=== PATIENT | male | born 1960 | race Caucasian/White ===

== ENCOUNTER 2023-05-11 12:39 | Inpatient (IN) | payer OTHER, SELFPAY ==
[2023-05-11] VITALS (11 sets, daily range): BP systolic 122–161; BP diastolic 85–108; PULSE 81–105; RESP 18–34; TEMP 36.6; O2SAT 91–97; BMI 32.1; BMI 31.1
--- NOTE | 2023-05-11 13:38 | EDS_ITS ---
HPI History of Present Illness Chief Complaint: Shortness of Breath Informant: patient Onset/Context/Timing Onset: Weeks (2) Context: gradual Timing: Continuous Quality: Positive for Wheezing Worsened by: Lying flat Relieved by: Albuterol Associated Symptoms cough, clear sputum and white sputum; Negative for rhinorrhea, post nasal drip, ear pain, fever, sore throat, chills, sweats, yellow sputum or green sputum Chest Pain: Positive for Tightness and - (Congested) Narrative Narrative: Patient presents with shortness of breath that has been getting worse over the past 2 weeks. Patient states it is gradually getting worse. Patient has noti ayana some wheezing in his chest. Patient states his breathing is worse with lying flat. Patient states it is better with albuterol aerosols. Patient states he is coughing up some clear and occasional white sputum. Patient denies any fevers or chills. Patient states his chest feels tight and congested. Patient denies any sore throat, rhinorrhea, or ear pain. PE Risk Factors: Negative for Cancer, OCP + Smoking + > 35, Prior DVT or PE, Recent immobilization, Recent surgery or Recent travel [facility] Medical History Hypertension Home Medications diphenhydramine HCl 25 mg tablet (Allergy) 50 mg PO QHS 05/11/23 [History Last Taken Unknown] losartan 50 mg tablet (Cozaar) 50 mg PO DAILY 05/11/23 [History Last Taken Unknown] Allergy/AdvReac Type Severity Reaction Status Date / Time poison dennis extract Allergy Intermediate Rash Verified 05/11/23 14:25 Social History (Updated 05/11/23 @ 20:21 by Julia Jose) number of children: 0 Smoking Status: Current every day smoker tobacco type: pipe ROS ROS ED Constitutional Constitutional ED: Denies chills or fever(s) Eyes Eyes: Denies blurry vision or change in vision ENT ENT ED: Denies rhinorrhea or sore throat Cardiovascular Cardiovascular: Reports chest pain; Denies palpitations Respiratory/Chest Respiratory/Chest: Reports cough and dyspnea Gastrointestinal Gastrointestinal: Denies nausea or vomiting Genitourinary Genitourinary ED: Denies dysuria or hematuria Musculoskeletal Musculoskeletal: Denies back pain or neck pain Integumentary Denies abscess or rash Neurologic Neurologic: Denies headache(s) or weakness Allergic/Immunologic Allergic/Immunologic ED: Denies mouth swelling or urticaria EXAM Physical Exam Const Vital Signs: 05/11/23 12:41 05/11/23 12:44 05/11/23 14:08 Temperature 97.8 F Temperature Source Temporal Pulse Rate 85 88 Respiratory Rate 34 H 20 H Respiratory Effort Short of Breath Respiratory Depth Shallow Respiratory Pattern Tachypnea Normal Blood Pressure 161/100 H Blood Pressure Mean 120 Pulse Ox 97 Oxygen Delivery Method Nasal Cannula Nasal Cannula Oxygen Flow Rate (L/min) 3 3 05/11/23 14:23 05/11/23 16:24 05/11/23 17:14 Temperature 97.8 F Temperature Source Temporal Pulse Rate 90 83 84 Respiratory Rate 23 H 26 H Respiratory Effort Respiratory Depth Respiratory Pattern Blood Pressure 159/91 H 122/108 H 143/85 H Blood Pressure Mean 113 112 104 Pulse Ox 96 96 91 Oxygen Delivery Method Nasal Cannula Nasal Cannula Oxygen Flow Rate (L/min) 4 4 05/11/23 16:43 Temperature 97.8 F Temperature Source Temporal Pulse Rate 81 Respiratory Rate 24 H Respiratory Effort Respiratory Depth Respiratory Pattern Blood Pressure 156/94 H Blood Pressure Mean 114 Pulse Ox 95 Oxygen Delivery Method Room Air Oxygen Flow Rate (L/min) 4 Positive well nourished and well developed General Appearance ED: well developed and NAD HEENT Reports moist mucous membranes Neck supple and no JVD Resp normal respiratory effort Auscultation: wheezes expiratory wheezes and throughout Cardio regular rate and regular rhythm GI normal to inspection, nondistended, normoactive bowel sounds and non-tender Palpation: soft Extremity normal to inspection General Extremety ED: Negative for edema or tenderness General Extremity: Negative for edema Neuro oriented x3, CN's II-XII intact bilaterally and no sensory deficits noted Sensorium / Orientation: alert Motor Exam: strength 5/5 throughout Psych mental status grossly normal Skin no rashes or lesions noted MDM MDM MDM Narrative Medical decision making narrative: Differential diagnosis includes COPD exacerbation, asthma, cardiac dysrhythmia, cardiac ischemia, pneumonia, pneumothorax, pulmonary embolism, and anxiety. EKG will be obtained to assess for cardiac dysrhythmia and cardiac ischemia. Chest x-ray will be obtained to assess for pneumonia and pneumothorax. CBC will be obtained to assess for leukocytosis and anemia. Basic metabolic profile will be obtained to assess for electrolyte abnormality and renal function. High- sensitivity troponin will be obtained to assess for cardiac ischemia. D-dimer will be obtained to assess for pulmonary embolism. Lab Data Attestation: I reviewed the patient's lab results. Lab results narrative: CBC was reviewed and was within normal limits. Basic metabolic profile was reviewed and was within normal limits. PT with INR and PTT were reviewed and were within normal limits. High-sensitivity troponin was reviewed and was normal. 2-hour repeat high-sensitivity troponin was reviewed and was unchanged. COVID-19 rapid antigen was reviewed and was negative. Influenza A and influenza B antigens were reviewed and were negative. Labs: Laboratory Results - last 24 hr 05/11/23 05/11/23 13:45 15:20 WBC 8.1 RBC 5.08 Hgb 16.2 Hct 50.5 MCV 99.4 H MCH 31.9 MCHC 32.1 RDW Std Deviation 49.3 H RDW Coeff of Monica 13.4 Plt Count 308 MPV 9.6 Immature Gran % (Auto) 0.400 Neut % (Auto) 65.2 Lymph % (Auto) 17.7 L [place] % (Auto) 8.6 Eos % (Auto) 7.0 H Baso % (Auto) 1.1 H Absolute Neuts (auto) 5.3 Absolute Lymphs (auto) 1.43 Nucleated RBC % 0 PT 13.2 INR 1.0 APTT 26.3 D-Dimer Quant (PE/DVT) 0.33 Sodium 137 Potassium 3.9 Chloride 102 Carbon Dioxide 30.0 Anion Gap 5 BUN 9 Creatinine 1.03 Estim Creat Clear Calc 63.03 Est GFR (MDRD) Af Amer 93 Est GFR (MDRD) Non-Af 77 BUN/Creatinine Ratio 8.7 L Glucose 104 Calcium 9.7 Troponin I High Sens 4 4 Radiography Chest X-Ray - ED: 2 View, Read by ED Physician, Read by Radiologist and No Acute Disease Diagnostic Testing: Clinical Impression(s) from Imaging Studies Chest X-Ray 05/11/23 13:52 IMPRESSION: Borderline cardiomegaly, aortic tortuosity with calcification and mild hyperinflation with minimal interstitial prominence. No focal consolidation or acute finding. Electronically Signed: Ean Trinh MD at 14:08 EDT , PA and lateral chest x-ray was obtained. There are 2 views. On my independent interpretation, lung oliver show mild hyperinflation. There is Cardiomegaly. Bony thorax is normal. There is no acute process noted. Radi ologist also interpreted the x-ray and agrees. EKG Initial EKG: Attestation: I personally reviewed and interpreted this EKG as follows: Interpretation: Sinus Rhythm (82) and No Acute Injury Pattern Comments: EKG was obtained. On my independent interpretation, it showed a normal sinus rhythm with a rate of 82. UT interval, QRS interval, and QTc intervals were all normal. Hammond was normal. There are no acute ST or T wave changes. Management Discussion w/another healthcare provider: Hospitalist Treatment and Re-Evaluation :: Patient was given a DuoNeb aerosol here. Patient was feeling better after this. Patient was given a dose of Solu-Medrol here. Because the patient was hypoxic at 85% on room air initially, I recommended admission to the hospital. Patient is agreeable with this. Case was discussed with the hospitalist. He will admit the patient to his service. Patient understands and is agreeable with the plan. All questions were answered. Discharge Plan Dx/Rx/DC Orders Clinical Impression: Hypoxia, Acute exacerbation of chronic obstructive pulmonary disease Disposition Disposition: Acute Care Hospital [facility] Discharge Date/Time: 05/11/23 19:34
--- NOTE | 2023-05-11 13:52 | RAD_ITS ---
STUDY: X-RAY CHEST REASON FOR EXAM: Male, 62 years old. Dyspnea. TECHNIQUE: Frontal and lateral views of the chest. COMPARISON: None. FINDINGS: Mild hyperinflation with mild interstitial prominence. There is no demonstrated pleural abnormality. Borderline cardiomegaly. Normal mediastinum and wiliam. Normal visualized pulmonary arteries. Aortic tortuosity with calcification. Normal visualized thoracic spine. Normal visualized ribs, clavicles, and shoulders. No abnormality of the visualized soft tissue structures of the upper abdomen. RAD/Chest PA and Lateral IMPRESSION: Borderline cardiomegaly, aortic tortuosity with calcification and mild hyperinflation with minimal interstitial prominence. No focal consolidation or acute finding. Electronically Signed: Ean Trinh MD at 14:08 EDT ,
[2023-05-11 14:02] LABS: Absolute Lymphocyte Count 1.43 X10^3/uL (0.83-4.51); Absolute Neutrophil Count 5.3 X10^3/uL (2.0-7.7); Basophil# 0.09 X10^3/uL; Basophil% 1.1 % (0-1); Eosinophil# 0.57 X10^3/uL; Hematocrit 50.5 % (40-54); Hemoglobin 16.2 g/dL (13.0-16.5); Lymphocyte # 1.43 X10^3/ul (0.83-4.51); Lymphocyte % 17.7 % (19-41); Mean Corp Hgb Conc 32.1 g/dL (32-36); Mean Corpuscular Hgb 31.9 pg (27.0-32.0); Mean Corpuscular Volume 99.4 fL (80-94); Mean Platelet Vol. 9.6 fl (6.2-12.0); Monocyte% 8.6 % (0-10); NRBC Flagged by Analyzer 0 % (0-5); Neutrophil # 5.28 X10^3/uL (2.7-7.7); Neutrophil % 65.2 % (47-70); Platelet Count 308 K/mm3 (150-450); RBC Distribution Width CV 13.4 % (11.6-14.6); RBC Distribution Width SD 49.3 fl (35.1-43.9); Red Blood Count 5.08 M/mm3 (4.6-6.2); White Blood Count 8.1 K/mm3 (4.4-11.0)
[2023-05-11] MEDS: Ipratropium/Albuterol Sulfate 3 ML AMPUL.NEB INHALATION ×2 (14:08→22:55)
[2023-05-11 14:12] LABS: D-Dimer Quantitative (DVT/PE) 0.33 FEU/ug/m (0.27-0.49)
[2023-05-11 14:16] LABS: Anion Gap 5 (5-15); BUN 9 mg/dL (7-18); BUN/Creat Ratio 8.7 RATIO (10-20); Calcium,Total 9.7 mg/dL (8.5-10.1); Chloride 102 mmol/L (98-107); Creatinine, Serum 1.03 mg/dL (0.70-1.30); EST Glomerular Filtration Rate 77 mL/min (>60); Est Glom Filt Rate - Afr Amer 93 mL/min (>60); Estimated Creatinine Clearance 63.03 ml/min; Glucose 104 mg/dL (74-106); Potassium 3.9 mmol/L (3.5-5.1); Sodium Level 137 mmol/L (136-145); Troponin-I HS (w/2H Reflex) 4 pg/mL (3.0-78.0)
[2023-05-11] MEDS: MethylPREDNISolone 125 MG/2 ML Vial 60 MG IV (14:22)
[2023-05-11 14:23] LABS: Prothrombin Time (Protime)PT. 13.2 SECONDS (11.7-14.9)
[2023-05-11 14:24] LABS: Partial Thromboplast Time 26.3 Seconds (24.1-36.2)
--- NOTE | 2023-05-11 14:32 | ED.RN ---
X-ray transport notified this RN that they believe they saw bed bugs on pt. back when they moved him. This RN went to assess for any bugs and witnessed several bugs of various sizes on pt. bed and clothes. Some bugs were caught and given to EVS. pt. was then cleaned, changed into clean gown with new sheets, personal belongings placed in clear bag and goosenecked.
[2023-05-11 15:54] LABS: Reflex Troponin-HS? (from REC) Y
[2023-05-11 16:23] LABS: Troponin-I HS 4 pg/mL (3.0-78.0)
--- NOTE | 2023-05-11 16:57 | PCM.HP.STD ---
HPI - General General Date of Admission: 05/11/23 Date of Service: 05/11/23 Chief Complaint: Shortness of breath, wheezing HPI Narrative MELCHOR LYLE is a 62 M with history of tobacco use and hypertension who presented to [facility] ED on 05/11/2023 with worsening shortness of breath and wheezing. Patient seen at bedside, no family present. Patient sitting comfortably in bed, satting well on 3 L nasal cannula and no increased work of breathing noted. Patient states that he feels significantly better now than when he got to the ED earlier today. States the breathing treatment was significantly helpful for him. Patient has no known history of COPD. He has a history of smoking cigarettes, unclear pack-year history. He is currently a pipe smoker, but only smokes about 2-3 times per week. Last smoked about 2 weeks ago. Has never had an episode of significant shortness of breath and wheezing like this before. He does occasionally have wheezing and uses his sisters albuterol inhaler with fairly good relief of his symptoms. His shortness of breath and wheezing started yesterday and got significantly worse this morning. No known sick contacts. Patient otherwise denies any chest pain. Denies any fevers or chills. Has not coughed up any sputum. No other acute concerns. Labs in the ED were notable for normal WBC count, benign CBC, normal BMP. Chest x-ray showed borderline cardiomegaly, aortic tortuosity with calcification and mild hyperinflation with minimal interstitial prominence, no focal consolidation or acute findings. [facility] Medical History Hypertension Home Medications diphenhydramine HCl 25 mg tablet (Allergy) 50 mg PO QHS 05/11/23 [History Last Taken Unknown] losartan 50 mg tablet (Cozaar) 50 mg PO DAILY 05/11/23 [History Last Taken Unknown] Allergy/AdvReac Type Severity Reaction Status Date / Time poison dennis extract Allergy Intermediate Rash Verified 05/11/23 14:25 Social History (Updated 05/11/23 @ 20:21 by Julia Jose) number of children: 0 Smoking Status: Current every day smoker tobacco type: pipe ROS Constitutional Constitutional: Reports fatigue and weakness; Denies change in weight, chills or fever(s) Cardiovascular Cardiovascular: Reports dyspnea on exertion; Denies chest pain, lightheadedness or orthopnea Respiratory/Chest Respiratory/Chest: Reports cough; Denies excessive phlegm production or productive cough Gastrointestinal Gastrointestinal: Denies abdominal pain Vital Signs Vital Signs Vital Signs: 05/11/23 12:41 05/11/23 12:44 05/11/23 14:08 Temperature 97.8 F Temperature Source Temporal Pulse Rate 85 88 Respiratory Rate 34 H 20 H Respiratory Effort Short of Breath Respiratory Depth Shallow Respiratory Pattern Tachypnea Normal Blood Pressure 161/100 H Blood Pressure Mean 120 Pulse Ox 97 Oxygen Delivery Method Nasal Cannula Nasal Cannula Oxygen Flow Rate (L/min) 3 3 05/11/23 14:23 05/11/23 16:24 Temperature Temperature Source Pulse Rate 90 83 Respiratory Rate 23 H Respiratory Effort Respiratory Depth Respiratory Pattern Blood Pressure 159/91 H 122/108 H Blood Pressure Mean 113 112 Pulse Ox 96 96 Oxygen Delivery Method Nasal Cannula Oxygen Flow Rate (L/min) 4 Weight Weight: 87.543 kg Body Mass Index (BMI) 32.1 Physical Exam Const alert and oriented x3 Constitutional Narrative: Pleasant male, sitting comfortably in bed, satting well on 3 L nasal cannula, conversing normally, no increased work of breathing noted. Unkempt with poor hygiene. General Appearance: cooperative HEENT normocephalic, head/scalp atraumatic, hearing grossly normal bilaterally, nasal mucous membranes and turbinates normal and moist oral mucous membranes Eyes PERRL, EOMs intact bilaterally and conjunctivae normal Neck full ROM, no lymphadenopathy and supple Lymph Lymphatic: no lymphadenopathy noted Chest inspection of chest normal Resp normal respiratory effort Resp Narrative: Moderate wheezing noted bilaterally in upper airways. Good air movement throughout. Cardio regular rate, regular rhythm, no murmurs and peripheral pulses 2+ throughout GI normal to inspection, nondistended, normoactive bowel sounds, soft to palpation, non-tender and non-distended Back/Spine normal ROM Extremity normal to inspection, full ROM and no pedal edema Skin no rashes or lesions noted Psych mental status grossly normal Results Lab / Micro Data 05/11/23 13:45 05/11/23 13:45 Labs: Laboratory Results - last 24 hr 05/11/23 13:45: WBC 8.1, RBC 5.08, Hgb 16.2, Hct 50.5, MCV 99.4 H, MCH 31.9, MCHC 32.1, RDW Std Deviation 49.3 H, RDW Coeff of Monica 13.4, Plt Count 308, MPV 9.6, Immature Gran % (Auto) 0.400, Neut % (Auto) 65.2, Lymph % (Auto) 17.7 L, Alexander % (Auto) 8.6, Eos % (Auto) 7.0 H, Baso % (Auto) 1.1 H, Absolute Neuts (auto) 5.3, Absolute Lymphs (auto) 1.43, Nucleated RBC % 0, PT 13.2, INR 1.0, APTT 26.3, D-Dimer Quant (PE/DVT) 0.33, Sodium 137, Potassium 3.9, Chloride 102, Carbon Dioxide 30.0, Anion Gap 5, BUN 9, Creatinine 1.03, Estim Creat Clear Calc 63.03, Est GFR (MDRD) Af Amer 93, Est GFR (MDRD) Non-Af 77, BUN/Creatinine Ratio 8.7 L, Glucose 104, Calcium 9.7, Troponin I High Sens 4 05/11/23 15:20: Troponin I High Sens 4 Micro: Microbiology 05/11/23 13:50 Nasal Secretion SARS-CoV-2 & FLU Antigen (Rapid) - Final Radiology Impression Chest X-Ray 05/11/23 13:52 IMPRESSION: Borderline cardiomegaly, aortic tortuosity with calcification and mild hyperinflation with minimal interstitial prominence. No focal consolidation or acute finding. Electronically Signed: Ean Trinh MD at 14:08 EDT , Assessment & Plan Assessment/Plan (1) Hypoxia: PLAN: Plan Patient is a 62 M with history of tobacco use and hypertension who presented to [facility] ED on 05/11/2023 with worsening shortness of breath and wheezing. 1. Acute hypoxic respiratory failure, dyspnea and wheezing, concern for underlying COPD No formal diagnosis of COPD. History of smoking cigarettes, has been smoking pipes a few times per week for the last few years. Suspect hypoxia along with significant dyspnea and wheezing are secondary to either a viral or bacterial URI, in setting of mild underlying COPD. Does not have any home inhalers, but uses his sisters albuterol inhaler as needed with improvement in his symptoms. Chest x-ray on admission as noted above. COVID and rapid flu negative. Given 1 treatment of DuoNeb's and 1 dose of methylprednisolone in the ED with good improvement in his symptoms. ? Treat as COPD exacerbation with 5-day course of steroids and antibiotics. Scheduled DuoNebs every 4 hours for now, can reduce to as needed if patient shows good improvement in symptoms. Sputum culture, respiratory panel pending. Wean supplemental O2 with goal oxygen saturation greater than 90%. Will likely need room air walk test prior to discharge to determine need for home oxygen. Recommend patient have outpatient PFTs done once improved for formal assessment for underlying lung disease. 2. Hypertension ? On home losartan. Appeared mildly hypovolemic on admission, will hold losartan for now. Repeat BMP in the morning, can restart losartan as needed. However, has been mildly hypertensive since admission; will start amlodipine 5 mg daily. 3. Cardiomegaly, concern for HFpEF ? Cardiomegaly noted on chest x-ray on admission. No history of hypertension, no known history of cardiac disease. Echo ordered for further evaluation. 4. Debility ? Patient reportedly lives with his sister and [id number]. His sister has severe COPD and wears chronic oxygen at home. [id number] does a lot of tasks around the home for patient. PT/OT/case management consulted for further evaluation of patient's functional status and discharge planning. 5. Poor hygiene ? Patient noted to have bedbugs on exam in the ED. Patient admitted that he is aware that he has bedbugs. Maintain contact precautions. DVT prophylaxis: Lovenox CODE STATUS: Full code, verified Expected disposition: Home, 2 to 3 days Total clinical time spent by myself addressing the patient's medical issues, reviewing all the data, and collaborating with patient's care team: 55 minutes. Charges/Coding Visit Charges Inpatient E&M: 35164 Init Hosp L2
--- NOTE | 2023-05-11 23:29 | ECHOCS_ITS ---
Reason For Study: Dyspnea/SOB Procedure This was a 2D Doppler, Color Flow transthoracic echocardiogram. The study was technically difficult. Contrast injection was performed. Exam performed portable in patient room. Left Ventricle Normal size and thickness. The left ventricular ejection fraction is 65 %. Normal diastology for age. Right Ventricle Normal right ventricle. Atria The left and right atria are normal. Mitral Valve Trivial mitral valve insufficiency. Tricuspid Valve Trivial tricuspid valve insufficiency. Right ventricular systolic pressure estimated to be 35 mmHg. Aortic Valve Trisinus/trileaflet aortic valve. Mild (1+) aortic valve insufficiency. Pulmonic Valve The pulmonic valve is not well visualized. Great Vessels Mildly dilated aortic root. Pericardium/Pleural No pericardial effusion. Medication Diluted definity 2ml given slow IV push to enhance endocardial definition. MMode/2D Measurements & Calculations LVIDd: 4.5 cm IVSd: 0.93 cm Ao root diam: 3.7 cm LVIDs: 3.1 cm LVPWd: 0.86 cm LA dimension: 3.6 cm RVDd: 3.5 cm FS: 30.1 % LAV(MOD-bp): 37.9 ml LVAd ap4: 29.0 cm2 SV(MOD-sp4): 60.8 ml LAV(MOD-bp) Indexed: 19.7 ml/m2 LVLd ap4: 7.9 cm LAV(MOD-sp2): 42.3 ml EDV(MOD-sp4): 85.7 ml LAV(MOD-sp4): 32.5 ml EDV(sp4-el): 89.6 ml LVAs ap4: 13.4 cm2 LVLs ap4: 6.1 cm ESV(MOD-sp4): 24.9 ml ESV(sp4-el): 25.1 ml EF(MOD-sp4): 70.9 % EF(sp4-el): 72.0 % SV(sp4-el): 64.5 ml LA A4 area: 14.0 cm2 RA A4 area: 13.7 cm2 TAPSE: 1.7 cm Time Measurements MV dec time: 0.21 sec Doppler Measurements & Calculations MV E max dante: 80.6 cm/sec Lat Peak E' Dante: 14.0 cm/sec Med Peak E' Dante: 10.1 cm/sec MV A max dante: 66.7 cm/sec E/E' lat: 5.7 E/E' med: 8.0 MV E/A: 1.2 MV V2 max: 81.3 cm/sec MV P1/2t max dante: 81.3 cm/sec Ao V2 max: 143.9 cm/sec MV max P.6 mmHg MV P1/2t: 67.5 msec Ao max P.3 mmHg MV V2 mean: 55.6 cm/sec Ao V2 mean: 92.2 cm/sec MV mean P.4 mmHg MV dec slope: 352.4 cm/sec2 Ao mean P.0 mmHg MV V2 VTI: 20.0 cm MVA(P1/2t): 3.3 cm2 Ao V2 VTI: 23.7 cm AV (velocity ratio): 0.94 LV V1 max: 125.4 cm/sec PA V2 max: 88.8 cm/sec TR max dante: 251.3 cm/sec LV V1 max P.3 mmHg TR max P.3 mmHg LV V1 mean P.7 mmHg LV V1 mean: 74.1 cm/sec LV V1 VTI: 22.4 cm ECHO/Echo Complete W/ Contrast Interpretation Summary The left ventricular ejection fraction is 65 %. Mild (1+) aortic valve insufficiency. Mildly dilated aortic root. Ordering Physician: Chino Sandoval Performed By: Oneal Butler RCS
[2023-05-12] VITALS (12 sets, daily range): BP systolic 124–154; BP diastolic 79–90; PULSE 72–105; RESP 18–28; TEMP 36.6–36.7; O2SAT 92–96
--- NOTE | 2023-05-12 00:23 | NURSING ---
Pt expressed concerns since losing his job in 2019, he has had financial issues and has been worried about his utilities, food, and transportation due to the gas prices increasing.
[2023-05-12] MEDS: Ipratropium/Albuterol Sulfate 3 ML AMPUL.NEB INHALATION ×6 (03:46→23:46)
--- NOTE | 2023-05-12 07:04 | PCM.PN.HOSP ---
Reason for Visit Reason for Visit: Diagnoses Hypoxemia (05/11/23) Subjective Subjective Patient with no acute events overnight per self and per nursing report. Patient notes feeling improved since initial ED arrival but still having significant coughing and dyspnea with exertion as well as ongoing wheezing. Discussed with patient transition to IV Solu-Medrol at this time with continued aerosols and antibiotic therapy. Patient denies fevers, chills, nausea, emesis, abdominal pain, chest pain. Objective Data Objective Data Vital Signs: Vital Signs Temp Pulse Resp BP Pulse Ox O2 Del Method O2 Flow Rate 97.8 F 83 18 154/90 H 93 Nasal Cannula 4 05/12/23 05:24 05/12/23 05:24 05/12/23 05:24 05/12/23 05:24 05/12/23 05:27 05/12/23 05:27 05/12/23 05:27 Oxygen Flow Rate (L/min) 4 Oxygen Delivery Method Nasal Cannula Weight: 186 lb 15.232 oz Body Mass Index (BMI) 31.1 Intake & Output: Intake and Output for Last 24 Hours 05/10/23 05/11/23 05/12/23 23:59 23:59 23:59 Intake Total 400 / 400 400 / 400 Balance 400 / 400 400 / 400 Lab / Micro Data 05/11/23 13:45 05/11/23 13:45 Labs: Laboratory Results - last 24 hr 05/11/23 13:45: WBC 8.1, RBC 5.08, Hgb 16.2, Hct 50.5, MCV 99.4 H, MCH 31.9, MCHC 32.1, RDW Std Deviation 49.3 H, RDW Coeff of Monica 13.4, Plt Count 308, MPV 9.6, Immature Gran % (Auto) 0.400, Neut % (Auto) 65.2, Lymph % (Auto) 17.7 L, [place] % (Auto) 8.6, Eos % (Auto) 7.0 H, Baso % (Auto) 1.1 H, Absolute Neuts (auto) 5.3, Absolute Lymphs (auto) 1.43, Nucleated RBC % 0, PT 13.2, INR 1.0, APTT 26.3, D-Dimer Quant (PE/DVT) 0.33, Sodium 137, Potassium 3.9, Chloride 102, Carbon Dioxide 30.0, Anion Gap 5, BUN 9, Creatinine 1.03, Estim Creat Clear Calc 63.03, Est GFR (MDRD) Af Amer 93, Est GFR (MDRD) Non-Af 77, BUN/Creatinine Ratio 8.7 L, Glucose 104, Calcium 9.7, Troponin I High Sens 4 05/11/23 15:20: Troponin I High Sens 4 Micro: Microbiology 05/11/23 22:50 Mucosa - Nasopharyngeal Respiratory Panel (PCR) - Final 05/11/23 13:50 Nasal Secretion SARS-CoV-2 & FLU Antigen (Rapid) - Final Radiography Diagnostic Testing: Radiology Impression Chest X-Ray 05/11/23 13:52 IMPRESSION: Borderline cardiomegaly, aortic tortuosity with calcification and mild hyperinflation with minimal interstitial prominence. No focal consolidation or acute finding. Electronically Signed: Ean Trinh MD at 14:08 EDT Reading Location ID and State: [address] [place] [address] , Service support , Physical Exam Narrative Physical Examination: General: Awake, alert, oriented x 3 and cooperative, seated upright in MS bed, fatigued but notes feeling improved since initial arrival. Skin: Normal color, normal turgor, no icterus, no cyanosis. HEENT: AT/NC, EOMI, PERRLA, mildly dry MM. Lungs: Diminished, greater bases, significant diffuse inspiratory and expiratory wheezes, no obvious rales or rhonchi. Heart: Regular rate and rhythm; no gallop, rub audible. Abdomen: Soft, obese, NTTP, ND, normal BS. Extremities: No cyanosis, clubbing, or edema. Neurological: Patient awake, alert, oriented as noted, cognitive function intact; pupils equally reactive to light and accommodation, cranial nerves grossly normal, moving all 4 extremities, no focal deficits, strength improving, moderately global decrease secondary to acute presentation. Psychiatric: Affect appears fatigued otherwise improved, no acute evidence of depressive or anxiety feelings. Assessment & Plan Assessment/Plan (1) Acute exacerbation of chronic obstructive pulmonary disease: (2) Hypoxia: PLAN: Plan The patient is a 62 y/o M w/ PMHx: HTN, Hx Cigarette Tobacco use/Pipe Tobacco use who presents to the [facility] ED on 05/11/23 with dyspnea and wheezing not improving over approximate 24 hours prompting eventual ED evaluation. #1. Acute Hypoxia secondary to Acute on Suspected Chronic COPD with heavy tobacco use history, no formal diagnosis: Admitted to medical surgical floor, maintain on oxygen with wean as tolerated to room air, continue ATC duonebs, PRN albuterol, IV methylprednisolone, HOB, IS parameters, full respiratory panel negative, rapid influenza and SARS COVID antigens negative, pending sputum Cx, procalcitonin 0.10, only mildly elevated, will continue azithromycin. We will perform oxygenation trial prior to discharge to home for supplemental needs. #2. Hypertension: Continue home regimen including Norvasc, will restart patient home losartan regimen additionally, PRN hydralazine. #3. Cardiomegaly, admitting hospitalist noted concern for HFpEF: Cardiac enzymes remained unremarkable, EKG with no specific concerns upon presentation, echocardiogram has been ordered and is pending. Pending these findings certainly can arrange follow-up for this patient. #4. Debility, adult failure to thrive: Patient reportedly living with his sister and [id number], notable poor hygiene in the ED with concern for bedbugs, case management/social work involved for discharge planning, PT and OT assessments also. #5. Tobacco Abuse: Encouraged cessation, inpatient consultation per RT, NR if desired. #6. DVT prophylaxis: Lovenox. #7. CODE STATUS: Full code. Charges/Coding Visit Charges Inpatient E&M: 64706 Subs Hosp L2
[2023-05-12] MEDS: Losartan Potassium 50 MG Tablet PO (09:57)
[2023-05-12] MEDS: Ceftriaxone 1 GM/50 ML BAG IV (09:57)
[2023-05-12] MEDS: amLODIPine 5 MG Tablet PO (09:57)
[2023-05-12] MEDS: Enoxaparin 40 MG/0.4 ML Syringe SC (09:57)
--- NOTE | 2023-05-12 12:10 | CASEMGMT ---
Addendum entered and electronically signed by Minal Bazzi RN 05/12/23 17:36: Also discussed medications at discharge. Pt states [facility] and has $50 in his wallet if he needs to pay for any medications out of pocket at discharge. Will need to watch cost of DC meds. Call placed to pt's ARSEN Owen. Per Owen, pt's sister uses [employer] for home O2. Green sheet placed on pt's chart for home O2. Fer Bazzi RN CM Original Note: PATTI BARRAZA Discharge Planning Assessment: Face to Face with patient for initial transition planning/care coordination assessment.?PATTI BARRAZA introduced self and role at [facility], pt alert, answering questions appropriately, voices understanding and is agreeable to participating in assessment.? Care providers, pharmacy,?and demographics verified. Admitting dx: COPD exac PCP: [facility] Specialists: none Preferred Pharmacy[facility] uses the [facility] Insurance: VA benefit and MCR A/B Prescription Benefit:?uses [facility] Living will/HPOA: none LNOK: sister Delores Living Arrangements: Pt lives with his sister and ARSEN in a single story home with 3 steps to enter. Pt states he is independent with ADLs and denies any diffulty with steps. Transportation: Pt drives DME: hand held shower SNF/HHC: denies any previous providers Plan: Pt plans to return home with the support of his sister and ARSEN. Pt states his sister is on home O2 continuously and so she is unable to provide much assistance but his ARSEN assists both of them when needed. Discussed bed bugs and pt states they have purchased a kit from [facility] to treat the house. 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 Pt states he is concerned with the affect of the heat used on the items in his home. Discussed possible home O2 need. Pt states he would prefer to not have to use home O2 at discharge but states he will if needed. Pt states he would like to use the same company his sister uses but is not sure the name. Pt provided permission for this PATTI BARRAZA to contact his ARSEN to find this information out. Fer Bazzi RN CM
[2023-05-12] MEDS: 0.9% Saline Lock 10 ML Syringe IV ×2 (14:46→23:08)
[2023-05-12] MEDS: Methylprednisolone Sod Succ 40 MG/ML VIAL IV ×2 (14:46→23:05)
[2023-05-13 05:00] VITALS: BP 103/76; PULSE 78; RESP 20; TEMP 36.6; O2SAT 94
[2023-05-13] MEDS: 0.9% Saline Lock 10 ML Syringe IV (05:16)
[2023-05-13] MEDS: Methylprednisolone Sod Succ 40 MG/ML VIAL IV (05:17)
[2023-05-13 06:20] VITALS: O2SAT 89
--- NOTE | 2023-05-13 06:21 | PN.HOSP_ITS ---
Reason for Visit Reason for Visit: Diagnoses Chronic obstructive pulmonary disease with (acute) exacerbation (05/12/23) Hypoxemia (05/12/23) Subjective Subjective No acute events overnight per self and per nursing report. Noted feeling remarkably improved with greater ease of breathing and resolution of previous wheezing. He states he does feel ready for discharge to home. Oxygenation trial this morning with patient maintained appropriately on room air only in the low 90s saturations. Patient assures he can have appropriate follow-up and take [facility] medications [facility] PCP evaluation hopefully within the next 3 to 5 days but did request that [facility] be notified to facilitate further earlier follow-up. Patient denies fevers, chills, nausea, emesis, abdominal pain, chest pain. Objective Data Objective Data Vital Signs: Vital Signs Temp Pulse Resp BP Pulse Ox O2 Del Method O2 Flow Rate 98.1 F 73 20 H 140/83 H 96 Nasal Cannula 3 05/12/23 23:00 05/12/23 23:46 05/12/23 23:46 05/12/23 23:00 05/12/23 23:00 05/12/23 23:00 05/12/23 23:00 Oxygen Flow Rate (L/min) 3 Oxygen Delivery Method Nasal Cannula Weight: 186 lb 15.232 oz Body Mass Index (BMI) 31.1 Intake & Output: Intake and Output for Last 24 Hours 05/11/23 05/12/23 05/13/23 23:59 23:59 23:59 Intake Total 400 / 400 1805 / 1805 Balance 400 / 400 1805 / 1805 Lab / Micro Data 05/13/23 07:05 05/13/23 07:05 Labs: Laboratory Results - last 24 hr 05/12/23 07:15: Procalcitonin 0.10 H Micro: Microbiology 05/12/23 05:20 Sputum, Expectorated/Coughed Gram Stain - Final 05/11/23 22:50 Mucosa - Nasopharyngeal Respiratory Panel (PCR) - Final 05/11/23 13:50 Nasal Secretion SARS-CoV-2 & FLU Antigen (Rapid) - Final Physical Exam Narrative Physical Examination: General: Awake, alert, oriented x 3 and cooperative, seated upright MedSur bed, significantly improved, moving air with much greater ease. Skin: Normal color, normal turgor, no icterus, no cyanosis. HEENT: AT/NC, EOMI, PERRLA, mildly dry MM. Lungs: Still diminished but significantly improved, wheezing has resolved, appears comfortable, no obvious rales or rhonchi. Heart: Regular rate and rhythm; no gallop, rub audible. Abdomen: Soft, obese, NTTP, ND, normal BS. Extremities: No cyanosis, clubbing, or edema. Neurological: Patient awake, alert, oriented as noted, cognitive function intact; pupils equally reactive to light and accommodation, cranial nerves grossly normal, moving all 4 extremities, no focal deficits, strength improving, mildly to moderately global decreased. Psychiatric: Affect appears reactive, notes ready for discharge, no acute evidence of depressive or anxiety feelings. Assessment & Plan Assessment/Plan (1) Acute exacerbation of chronic obstructive pulmonary disease: (2) Hypoxia: PLAN: Plan The patient is a 62 y/o M w/ PMHx: HTN, Hx Cigarette Tobacco use/Pipe Tobacco use who presents to the [facility] ED on 05/11/23 with dyspnea and wheezing not improving over approximate 24 hours prompting eventual ED evaluation. #1. Acute Hypoxia secondary to Acute on Suspected Chronic COPD with heavy tobacco use history, no formal diagnosis: Admitted to medical surgical floor, maintain on oxygen with wean as tolerated to room air, continue ATC duonebs, PRN albuterol, IV methylprednisolone, HOB, IS parameters, full respiratory panel negative, rapid influenza and SARS COVID antigens negative, sputum Cx at discharge however did note preliminary with 1+ gram-negative rods/2+ gram- positive cocci with final culture still pending as noted, procalcitonin 0.10, only mildly elevated, upon admission patient was initiated on azithromycin and Rocephin which had been continued with oral transition at discharge. Examination trial was performed and patient was appropriately weaned to room air and maintained with ambulatory trial. Patient given sputum culture as noted although pending finalization discharged to home on completion therapy of cefdinir as well as azithromycin, prednisone taper, albuterol rescue inhaler and scheduled inhaler with requested follow-up with primary care physician for formal PFTs once acute phase resolved. #2. Hypertension: Continue home regimen including Norvasc, 05/12/23 restarted patient home losartan regimen additionally, PRN hydralazine. Will continue Norvasc at discharge. #3. Cardiomegaly, admitting hospitalist noted concern for HFpEF: Cardiac enzymes remained unremarkable, EKG with no specific concerns upon presentation, echocardiogram with noted LVEF 65%, mild 1+ at MARY, mildly dilated aortic root. Patient was also maintained on a baby aspirin which was also continued upon d ischarge. #4. Debility, adult failure to thrive: Patient reportedly living with his sister and [id number], notable poor hygiene in the ED with concern for bedbugs, case management/social work involved for discharge planning, PT and OT assessments also. #5. Tobacco Abuse: Encouraged cessation, inpatient consultation per RT, NR if desired. #6. DVT prophylaxis: Lovenox. #7. CODE STATUS: Full code. Charges/Coding Visit Charges Inpatient E&M: 62300 Subs Hosp L2
[2023-05-13 07:38] VITALS: PULSE 101; RESP 20; O2SAT 96
[2023-05-13] MEDS: Ipratropium/Albuterol Sulfate 3 ML AMPUL.NEB INHALATION ×2 (07:38→11:17)
[2023-05-13 07:46] LABS: Absolute Lymphocyte Count 0.84 X10^3/uL (0.83-4.51); Absolute Neutrophil Count 10.6 X10^3/uL (2.0-7.7); Basophil# 0.03 X10^3/uL; Basophil% 0.3 % (0-1); Hematocrit 46.9 % (40-54); Hemoglobin 15.4 g/dL (13.0-16.5); Lymphocyte # 0.84 X10^3/ul (0.83-4.51); Lymphocyte % 7.2 % (19-41); Mean Corp Hgb Conc 32.8 g/dL (32-36); Mean Corpuscular Hgb 32.5 pg (27.0-32.0); Mean Corpuscular Volume 98.9 fL (80-94); Mean Platelet Vol. 9.6 fl (6.2-12.0); Monocyte# 0.18 X10^3/uL; Monocyte% 1.5 % (0-10); NRBC Flagged by Analyzer 0 % (0-5); Neutrophil # 10.55 X10^3/uL (2.7-7.7); Neutrophil % 90.1 % (47-70); Platelet Count 300 K/mm3 (150-450); RBC Distribution Width CV 13.4 % (11.6-14.6); RBC Distribution Width SD 48.9 fl (35.1-43.9); Red Blood Count 4.74 M/mm3 (4.6-6.2); White Blood Count 11.7 K/mm3 (4.4-11.0)
[2023-05-13 08:24] LABS: ALB/GLOB Ratio 0.8 RATIO (0.9-2.4); AST(SGOT) 20 U/L (15-37); Alanine Aminotransfer ALT/SGPT 38 U/L (16-61); Albumin, Serum 3.8 g/dL (3.2-5.0); Alkaline Phosphatase 73 U/L (45-117); Anion Gap 8 (5-15); BUN 15 mg/dL (7-18); BUN/Creat Ratio 15.4 RATIO (10-20); Calcium,Total 9.4 mg/dL (8.5-10.1); Chloride 99 mmol/L (98-107); Creatinine, Serum 0.97 mg/dL (0.70-1.30); EST Glomerular Filtration Rate 82 mL/min (>60); Est Glom Filt Rate - Afr Amer 100 mL/min (>60); Estimated Creatinine Clearance 66.92 ml/min; Globulin 4.8 g/dL (2.2-4.2); Glucose 148 mg/dL (74-106); Potassium 4.5 mmol/L (3.5-5.1); Protein, Total 8.6 g/dL (6.4-8.2); Sodium Level 135 mmol/L (136-145)
[2023-05-13] MEDS: Ceftriaxone 1 GM/50 ML BAG IV (08:48)
[2023-05-13] MEDS: Losartan Potassium 50 MG Tablet PO (08:48)
[2023-05-13] MEDS: amLODIPine 5 MG Tablet PO (08:48)
[2023-05-13 09:04] VITALS: BP 143/72; PULSE 90; RESP 18; TEMP 36.8; O2SAT 92
[2023-05-13 11:17] VITALS: PULSE 89; RESP 20
[2023-05-13 12:08] VITALS: O2SAT 91; O2SAT 93
--- NOTE | 2023-05-13 12:11 | PCM.DC ---
Discharge Instructions Diet Discharge Diet: Low fat / Low cholesterol Activity Discharge Activity: - (Limit yourself to mild activity until complete steroid taper/antibiotic therapy or cleared per primary care. Please avoid prolonged heat exposure and remain in air conditioned environment.) May resume sexual activity in: 10-14 days Dressing / Incision Call your doctor if you observe: Fever of 101 or Higher, Numbness or Tingling, Shortness of breath, Fainting spells, Chest pain, Increased palpitations (irregular heartbeat), Calf discomfort and Uncontrolled pain Follow Up Care Test Results: Test results from this visit will be discussed in further detail at your follow-up appointment, if applicable. Discharge Plan Admission Admit Date/Time: 05/12/23 10:06 Primary Reason for Your Visit: Acute Hypoxia secondary to Acute on Suspected Chronic COPD Attending Provider: Linsey Spivey Primary [facility] Provider: [place] Consulting Providers: Chino Sandoval Instructions Patient Instructions: Chronic Lung Disease Infections, Discharge Instructions: COPD Additional Instructions / Restrictions: DURING THE ADMISSION: You were treated for COPD exacerbation. Please continue the inhalers and as needed albuterol, steroid taper and antibiotic therapies until medication completed or re-assessment by your primary care physician. It is important following resolution of your acute presentation that you have form pulmonry function testing performed. During the admission you had noted cardiac enlargement on CXR. An echocardiogram was performed during admission and formal read is pending at your discharge but this was not acutely related with your exacerbation and per your preference you were discharged to home with planned result follow-up upon your primary care follow-up. Your blood pressure was above goal during admission thus low dose norvasc was added and rx sent upon discharge also. Your regimen may need further adjusted pending repeat assessment at your primary care follow-up. Discharge Orders/Prescriptions Prescriptions: New amlodipine 5 mg Tablet 5 mg PO DAILY 30 Days Qty: 30 0RF aspirin 81 mg tablet,chewable 81 mg PO DAILY 30 Days Qty: 30 0RF prednisone 10 mg tablet See Taper PO DAILY Qty: 30 0RF Taper: Prednisone Taper 40 mg WITH BREAKFAST for 3 Days and 0 Hour 30 mg WITH BREAKFAST for 3 Days and 0 Hour 20 mg WITH BREAKFAST for 3 Days and 0 Hour 10 mg WITH BREAKFAST for 3 Days and 0 Hour fluticasone propion-salmeterol [Advair Diskus] 250-50 mcg/dose blister with device 1 inh inhalation Q12H Qty: 60 0RF albuterol sulfate 90 mcg/actuation aerosol powdr breath activated 2 inh inhalation Q4H PRN (Reason: Dyspnea,wheezing) Qty: 1 0RF cefdinir 300 mg capsule 300 mg PO Q12H 3 Days Qty: 6 0RF azithromycin 500 mg tablet 500 mg PO DAILY 2 Days Qty: 2 0RF Continued diphenhydramine HCl [Allergy] 25 mg tablet 50 mg PO QHS losartan [Cozaar] 50 mg tablet 50 mg PO DAILY Referrals / [facility] - (Please follow-up within 3-5 days to review admission.) Disposition Disposition (needs filled in before D/C Order can be placed): Home, Self Care
--- NOTE | 2023-05-13 12:17 | PCM.DC.SUM ---
Providers Date of Admission: 05/12/23 Date of Discharge: 05/13/23 Primary Care Physician: [facility] Reason For Visit: COPD EXACERBATION Diagnosis Discharge Diagnosis (1) Acute exacerbation of chronic obstructive pulmonary disease: Status: Chronic Code(s): J44.1 - Chronic obstructive pulmonary disease with (acute) exacerbation (2) Hypoxia: Status: Acute Code(s): R09.02 - Hypoxemia Plan: Discharge Diagnoses: #1. Acute Hypoxia secondary to Acute on Suspected Chronic COPD with heavy tobacco use history with primarily sputum culture with Gram stain noting 1+ gram-negative rods/2+ gram-positive cocci #2. Hypertension, uncontrolled #3. Cardiomegalyon EKG w/ follow-up ECHO w/ LVEF 65%, mild 1+ at MARY, mildly dilated aortic root #4. Debility, adult failure to thrive #5. Tobacco Abuse Medications at Discharge Home Medications diphenhydramine HCl 25 mg tablet (Allergy) 50 mg PO QHS 05/11/23 losartan 50 mg tablet (Cozaar) 50 mg PO DAILY 05/11/23 albuterol sulfate 90 mcg/actuation breath activated powder inhaler 2 inh inhalation Q4H PRN Dyspnea,wheezing #1 ea 05/13/23 amlodipine 5 mg tablet 5 mg PO DAILY 30 days #30 tabs 05/13/23 aspirin 81 mg chewable tablet 81 mg PO DAILY 30 days #30 tabs 05/13/23 azithromycin 500 mg tablet 500 mg PO DAILY 2 days #2 tabs 05/13/23 cefdinir 300 mg capsule 300 mg PO Q12H 3 days #6 caps 05/13/23 fluticasone 250 mcg-salmeterol 50 mcg/dose blistr powdr for inhalation (Advair Diskus) 1 inh inhalation Q12H #60 ea 05/13/23 prednisone 10 mg tablet See Taper PO DAILY COPD exacerbation #30 tabs 05/13/23 Hospital Course Operations None Procedures 2-D Echocardiogram and EKG Summary of Care Provided Minutes Spent on Discharge: 35 Hospital Course: The patient is a 62 y/o M w/ PMHx: HTN, Hx Cigarette Tobacco use/Pipe Tobacco use who presented to the [facility] ED on 05/11/23 with dyspnea and wheezing not improving over approximate 24 hours prompting eventual ED evaluation. Admitted to medical surgical floor, maintain on oxygen with wean as tolerated to room air, continue ATC duonebs, PRN albuterol, IV methylprednisolone, HOB, IS parameters, full respiratory panel negative, rapid influenza and SARS COVID antigens negative, sputum Cx at discharge however did note preliminary with 1+ gram-negative rods/2+ gram-positive cocci with final culture still pending as noted, procalcitonin 0.10, only mildly elevated, upon admission patient was initiated on azithromycin and Rocephin which had been continued with oral transition at discharge. Examination trial was performed and patient was appropriately weaned to room air and maintained with ambulatory trial. Patient given sputum culture as noted although pending finalization discharged to home on completion therapy of cefdinir as well as azithromycin, prednisone taper, albuterol rescue inhaler and scheduled inhaler with requested follow-up with primary care physician for formal PFTs once acute phase resolved. Cardiac enzymes remained unremarkable, EKG with no specific concerns upon presentation, echocardiogram with noted LVEF 65%, mild 1+ at MARY, mildly dilated aortic root. Patient was also maintained on a baby aspirin which was also continued upon discharge. BP also of note above goal during presentation therefore Norvasc added in addition to losartan and continued upon discharge. Given patient clinical improvement quicker than clinically expected and ability to transition to room air and ambulate on room air without desaturation as well as per patient preference patient discharged to home with [facility] with [facility]CP reevaluation within 3 to 5 days with continued steroid taper, antibiotic therapy, NSAIDs noted with adjustments to his blood pressure medications also. Weight / BMI Weight Weight: 186 lb 15.232 oz Body Mass Index (BMI) 31.1 ABG / Lab / Microbiology Data 05/13/23 07:05 05/13/23 07:05 Laboratory: Laboratory Results - last 24 hr 05/13/23 07:05: WBC 11.7 H, RBC 4.74, Hgb 15.4, Hct 46.9, MCV 98.9 H, MCH 32.5 H, MCHC 32.8, RDW Std Deviation 48.9 H, RDW Coeff of Monica 13.4, Plt Count 300, MPV 9.6, Immature Gran % (Auto) 0.900, Neut % (Auto) 90.1 H, Lymph % (Auto) 7.2 L, [place] % (Auto) 1.5, Eos % (Auto) 0.0, Baso % (Auto) 0.3, Absolute Neuts (auto) 10.6 H, Absolute Lymphs (auto) 0.84, Nucleated RBC % 0, Sodium 135 L, Potassium 4.5, Chloride 99, Carbon Dioxide 28.0, Anion Gap 8, BUN 15, Creatinine 0.97, Estim Creat Clear Calc 66.92, Est GFR (MDRD) Af Amer 100, Est GFR (MDRD) Non-Af 82, BUN/Creatinine Ratio 15.4, Glucose 148 H, Calcium 9.4, Total Bilirubin 0.50, AST 20, ALT 38, Alkaline Phosphatase 73, Total Protein 8.6 H, Albumin 3.8, Globulin 4.8 H, Albumin/Globulin Ratio 0.8 L Microbiology: Microbiology 05/12/23 05:20 Sputum, Expectorated/Coughed Gram Stain - Final 05/11/23 22:50 Mucosa - Nasopharyngeal Respiratory Panel (PCR) - Final 05/11/23 13:50 Nasal Secretion SARS-CoV-2 & FLU Antigen (Rapid) - Final Radiography Diagnostic Testing: Radiology Impression Echocardiogram 05/11/23 23:29 Interpretation Summary The left ventricular ejection fraction is 65 %. Mild (1+) aortic valve insufficiency. Mildly dilated aortic root. Ordering Physician: Chino Sandoval Performed By: Oneal Butler RCS D/C Instructions Discharge Diet: Low fat / Low cholesterol May resume sexual activity in: 10-14 days Call your doctor if you observe: Fever of 101 or Higher, Numbness or Tingling, Shortness of breath, Fainting spells, Chest pain, Increased palpitations (irregular heartbeat), Calf discomfort and Uncontrolled pain Meaningful Use Info Meaningful Use Diagnoses (Choose all that apply): None applicable Discharge Plan Admission Admit Date/Time: 05/12/23 10:06 Primary Reason for Your Visit: Acute Hypoxia secondary to Acute on Suspected Chronic COPD Attending Provider: Linsey Spivey Primary Care Provider: [facility] Consulting Providers: Chino Sandoval Instructions Patient Instructions: Chronic Lung Disease Infections, Discharge Instructions: COPD Additional Instructions / Restrictions: DURING THE ADMISSION: You were treated for COPD exacerbation. Please continue the inhalers and as needed albuterol, steroid taper and antibiotic therapies until medication completed or re-assessment by your primary care physician. It is important following resolution of your acute presentation that you have form pulmonry function testing performed. During the admission you had noted cardiac enlargement on CXR. An echocardiogram was performed during admission with noted LVEF 65%, mild 1+ at MARY, mildly dilated aortic root. Please continue to follow-up with your primary care physician. Your blood pressure was above goal during admission thus low dose norvasc was added and rx sent upon discharge also. Your regimen may need further adjusted pending repeat assessment at your primary care follow-up. Discharge Orders/Prescriptions Prescriptions: New amlodipine 5 mg Tablet 5 mg PO DAILY 30 Days Qty: 30 0RF aspirin 81 mg tablet,chewable 81 mg PO DAILY 30 Days Qty: 30 0RF prednisone 10 mg tablet See Taper PO DAILY Qty: 30 0RF Taper: Prednisone Taper 40 mg WITH BREAKFAST for 3 Days and 0 Hour 30 mg WITH BREAKFAST for 3 Days and 0 Hour 20 mg WITH BREAKFAST for 3 Days and 0 Hour 10 mg WITH BREAKFAST for 3 Days and 0 Hour fluticasone propion-salmeterol [Advair Diskus] 250-50 mcg/dose blister with device 1 inh inhalation Q12H Qty: 60 0RF albuterol sulfate 90 mcg/actuation aerosol powdr breath activated 2 inh inhalation Q4H PRN (Reason: Dyspnea,wheezing) Qty: 1 0RF cefdinir 300 mg capsule 300 mg PO Q12H 3 Days Qty: 6 0RF azithromycin 500 mg tablet 500 mg PO DAILY 2 Days Qty: 2 0RF Continued diphenhydramine HCl [Allergy] 25 mg tablet 50 mg PO QHS losartan [Cozaar] 50 mg tablet 50 mg PO DAILY Referrals / Follow Up: [place] [Primary Care Provider] - (Please follow-up within 3-5 days to review admission.) Disposition Disposition (needs filled in before D/C Order can be placed): Home, Self Care Charges/Coding Visit Charges Inpatient E&M: 45867 Disch Hosp >30min
== END 2023-05-13 13:10 | disposition home or self-care (01) | DRG 192 ==
LOC: ED 17:17 → MS3 17:56
PROVIDERS: Admitting Provider Hospitalist; Emergency Provider Emergency Medicine; Visit Provider Family Medicine
DX: J44.1 Chronic obstructive pulmonary disease with (acute) exacerbation (principal); R62.7 Adult failure to thrive; I10 Essential (primary) hypertension; F17.290 Nicotine dependence, other tobacco product, uncomplicated; Z68.31 Body mass index [BMI] 31.0-31.9, adult; I51.7 Cardiomegaly; R53.81 Other malaise; Z20.7 Contact with and (suspected) exposure to pediculosis, acariasis and other infestations; Z79.82 Long term (current) use of aspirin; Z79.899 Other long term (current) drug therapy
CPT/HCPCS: 36415; 71046; 80048; 80053; 84145; 84484; 85025; 85379; 85610; 85730; 87070; 87205; 87428; 87633; 93005; 93306; 94640; 94668; 99252; 99285; 99406; Q9957; A4216; C8929; G0463

== ENCOUNTER 2024-05-27 07:20 | Inpatient (IN) | payer OTHER, SELFPAY ==
[2024-05-27] VITALS (23 sets, daily range): BP systolic 127–162; BP diastolic 65–106; PULSE 77–160; RESP 16–32; TEMP 35.8–37; O2SAT 90–97; BMI 34.8; BMI 32.8
--- NOTE | 2024-05-27 07:42 | RAD_ITS ---
INDICATION: cough/dyspnea EXAMINATION/TECHNIQUE: X-RAY - XR Chest 1 View COMPARISON: Prior study dated: 05/11/2023 FINDINGS: LINES/DEVICES: None. LUNGS: No consolidation, edema or effusion. No pneumothorax. MEDIASTINUM AND CARDIOVASCULAR STRUCTURES: Cardiac silhouette not enlarged. Central airways and mediastinal contour are unremarkable. BONES AND SOFT TISSUES: Unremarkable. RAD/Chest 1 View (Portable) IMPRESSION: No radiographic evidence of acute cardiopulmonary disease. Electronically Signed: Faustino Farooq MD at 8:38 EDT ,
--- NOTE | 2024-05-27 07:42 | EKG12_ITS ---
Test Reason : SOB Blood Pressure : / mmHG Vent. Rate : 096 BPM Atrial Rate : 096 BPM P-R Int : 168 ms QRS Dur : 068 ms QT Int : 324 ms P-R-T Axes : 031 030 052 degrees QTc Int : 409 ms Normal sinus rhythm Normal ECG Confirmed by NADINE TERAN, SRIRAM ([id number]), magazine editor HUMZA CANO ([id number]) on 05/28/2024 7:34:34 AM Referred By: Confirmed By:SRIRAM MCCOY MD
--- NOTE | 2024-05-27 07:44 | ED.VIS.DYS ---
HPI History of Present Illness Chief Complaint: Shortness of Breath Informant: patient and EMS Narrative Narrative: 63-year-old male presenting to the emergency room chief complaint of dyspnea. Patient states that he is a pack smoker but has never been diagnosed with a form of COPD or asthma. He notes that for about 3 days he has had nasal drainage as well as cough with sputum production. He states he has extreme allergies. No reported fevers. He states that he has a hard time getting the sputum up and when he gets into coughing fits he develops rhinorrhea. He denies any leg swelling. He states he was told during his last hospital admission last year that he has an enlarged heart. He states he used an albuterol rescue inhaler over the past couple days. [facility] [place] No vomiting or diarrhea. Denies any chest pain. [facility] Medical History Hypertension Home Medications ?Medication ?Instructions ?Recorded ?Last Taken ?Type diphenhydramine HCl 25 mg tablet 50 mg PO QHS 05/11/23 Unknown History (Allergy) losartan 50 mg tablet (Cozaar) 50 mg PO DAILY 05/11/23 Unknown History albuterol sulfate 90 mcg/actuation 2 inh inhalation Q4H PRN 05/13/23 Unknown Rx breath activated powder inhaler Dyspnea,wheezing #1 ea amlodipine 5 mg tablet 5 mg PO DAILY 30 days #30 tabs 05/13/23 Unknown Rx aspirin 81 mg chewable tablet 81 mg PO DAILY 30 days #30 tabs 05/13/23 Unknown Rx azithromycin 500 mg tablet 500 mg PO DAILY 2 days #2 tabs 05/13/23 Unknown Rx cefdinir 300 mg capsule 300 mg PO Q12H 3 days #6 caps 05/13/23 Unknown Rx fluticasone 250 mcg-salmeterol 50 1 inh inhalation Q12H #60 ea 05/13/23 Unknown Rx mcg/dose blistr powdr for inhalation (Advair Diskus) prednisone 10 mg tablet See Taper PO DAILY COPD 05/13/23 Unknown Rx exacerbation #30 tabs Allergy/AdvReac Type Severity Reaction Status Date / Time poison dennis extract Allergy Intermediate Rash Verified 05/27/24 07:20 Social History number of children: 0 Smoking Status: Current every day smoker tobacco type: pipe ROS ROS ED Constitutional Constitutional ED: Denies chills, fever(s), sweats or weight loss Eyes Eyes: Denies change in vision or diplopia ENT ENT ED: Reports rhinorrhea; Denies ear pain or sore throat Cardiovascular Cardiovascular: Denies chest pain, orthopnea, palpitations or racing heartbeat Respiratory/Chest Respiratory/Chest: Reports cough, dyspnea, dyspnea on exertion and sputum; Denies orthopnea Gastrointestinal Gastrointestinal: Denies abdominal pain, diarrhea, nausea or vomiting Genitourinary Genitourinary ED: Denies dysuria, hematuria or urinary frequency Musculoskeletal Musculoskeletal: Denies arthralgias or myalgias Integumentary Denies abscess or rash Neurologic Neurologic: Denies headache(s) or weakness Psychiatric Psychiatric: Denies anxiety, depression, suicidal ideation or suicidal thoughts Endocrine Endocrinology: Denies polydipsia, polyphagia or polyuria Allergic/Immunologic Allergic/Immunologic ED: Denies mouth swelling, tongue swelling or urticaria EXAM Physical Exam Const Vital Signs: 05/27/24 07:20 05/27/24 07:20 05/27/24 07:26 Temperature 98.4 F 96.4 F L Temperature Source Temporal Temporal Pulse Rate 102 H 160 H Respiratory Rate 32 H 32 H Respiratory Effort Short of Breath Respiratory Pattern Tachypnea Blood Pressure 140/106 H 140/106 H Blood Pressure Mean 117 117 Pulse Ox 92 92 Oxygen Delivery Method Room Air Room Air Room Air Oxygen Flow Rate (L/min) 05/27/24 07:50 05/27/24 07:50 05/27/24 08:00 Temperature Temperature Source Pulse Rate 93 97 Respiratory Rate 16 24 H Respiratory Effort Respiratory Pattern Blood Pressure 129/78 H Blood Pressure Mean 87 Pulse Ox 92 Oxygen Delivery Method Nasal Cannula Oxygen Flow Rate (L/min) 2 05/27/24 08:26 Temperature 98.6 F Temperature Source Oral Pulse Rate 95 Respiratory Rate 25 H Respiratory Effort Respiratory Pattern Blood Pressure 127/72 H Blood Pressure Mean 90 Pulse Ox 91 Oxygen Delivery Method Nasal Cannula Oxygen Flow Rate (L/min) 2 Positive well nourished and well developed General Appearance ED: well developed and NAD HEENT Reports normocephalic, head/scalp atraumatic and moist mucous membranes Eyes PERRL and EOMs intact bilaterally Neck no lymphadenopathy, supple and no JVD Resp Auscultation: rhonchi and wheezes Cardio regular rate, regular rhythm and no murmurs Rate: tachycardic GI normal to inspection, nondistended, normoactive bowel sounds and non-tender Palpation: soft Back/Spine no CVA tenderness and normal ROM Extremity General Extremety ED: Yes edema General Extremity: edema bilateral lower extremity Details: moderate Neuro oriented x3 and CN's II-XII intact bilaterally Sensorium / Orientation: alert Motor Exam: strength 5/5 throughout Psych mental status grossly normal Mood & Affect: Negative for depressed or tearful Skin no rashes or lesions noted and no wounds MDM MDM MDM Narrative Medical decision making narrative: Differential diagnosis includes but not limited to viral syndrome acute bronchitis chronic bronchitis bronchospasm COPD exacerbation pneumonia pleural effusion ACS CHF. My independent interpretation of the chest x-ray is no acute process. White count slightly elevated 13.2 platelet count of 359 hemoglobin of 17 BMP with a glucose of 157 troponin is 5 BNP 6.5. COVID influenza and RSV swabs were negative. Patient received breathing treatments and Solu-Medrol. He has improved aeration on repeat examination however continues to have rhonchi and wheezing. He is still requiring 2 L nasal cannula and his saturation is currently 91%. Patient would benefit from inpatient evaluation and treatment. I will speak with the hospitalist regarding admission History & Record Review Discussion w/independent historian: EMS personnel and Patient Additional record(s) reviewed:: Prior inpatient record, Prior ED visit and Prior labs Lab Data Attestation: I reviewed the patient's lab results. Labs: Laboratory Results - last 24 hr 05/27/24 07:43 WBC 13.2 H RBC 5.32 Hgb 17.0 H Hct 50.9 MCV 95.7 H MCH 32.0 MCHC 33.4 RDW Std Deviation 45.3 H RDW Coeff of Monica 12.8 Plt Count 359 MPV 9.0 Immature Gran % (Auto) 0.500 Neut % (Auto) 80.1 H Lymph % (Auto) 10.6 L [place] % (Auto) 5.1 Eos % (Auto) 2.9 Baso % (Auto) 0.8 Absolute Neuts (auto) 10.6 H Absolute Lymphs (auto) 1.40 Nucleated RBC % 0 Sodium 137 Potassium 4.4 Chloride 102 Carbon Dioxide 27.0 Anion Gap 8 BUN 14 Creatinine 1.09 Estim Creat Clear Calc 70.18 Est GFR (MDRD) Af Amer 87 Est GFR (MDRD) Non-Af 72 BUN/Creatinine Ratio 12.8 Glucose 157 H Calcium 9.6 Troponin I High Sens 5 B-Natriuretic Peptide 6.5 Radiography Diagnostic Testing: Clinical Impression(s) from Imaging Studies Chest X-Ray 05/27/24 07:42 IMPRESSION: No radiographic evidence of acute cardiopulmonary disease. Electronically Signed: Faustino Farooq MD at 8:38 EDT , EKG Initial EKG: Attestation: I personally reviewed and interpreted this EKG as follows: Comments: Normal sinus rhythm ventricular rate 96 bpm Discharge Plan Triage Chief Complaint: Shortness of Breath ED Provider: Mike Headley Dx/Rx/DC Orders Prescriptions: No Action diphenhydramine HCl [Allergy] 25 mg tablet 50 mg PO QHS losartan [Cozaar] 50 mg tablet 50 mg PO DAILY amlodipine 5 mg Tablet 5 mg PO DAILY 30 Days Qty: 30 0RF aspirin 81 mg tablet,chewable 81 mg PO DAILY 30 Days Qty: 30 0RF prednisone 10 mg tablet See Taper PO DAILY Qty: 30 0RF Taper: Prednisone Taper 40 mg WITH BREAKFAST for 3 Days and 0 Hour 30 mg WITH BREAKFAST for 3 Days and 0 Hour 20 mg WITH BREAKFAST for 3 Days and 0 Hour 10 mg WITH BREAKFAST for 3 Days and 0 Hour fluticasone propion-salmeterol [Advair Diskus] 250-50 mcg/dose blister with device 1 inh inhalation Q12H Qty: 60 0RF albuterol sulfate 90 mcg/actuation aerosol powdr breath activated 2 inh inhalation Q4H PRN (Reason: Dyspnea,wheezing) Qty: 1 0RF cefdinir 300 mg capsule 300 mg PO Q12H 3 Days Qty: 6 0RF azithromycin 500 mg tablet 500 mg PO DAILY 2 Days Qty: 2 0RF [facility] [Primary Care Provider] - Print Language: Jamaican
[2024-05-27 07:48] LABS: Absolute Neutrophil Count 10.6 X10^3/uL (2.0-7.7); Basophil% 0.8 % (0-1); Eosinophil# 0.38 X10^3/uL; Eosinophils% 2.9 % (0-5); Hematocrit 50.9 % (40-54); Lymphocyte % 10.6 % (19-41); Mean Corp Hgb Conc 33.4 g/dL (32-36); Mean Corpuscular Volume 95.7 fL (80-94); Monocyte# 0.67 X10^3/uL; Monocyte% 5.1 % (0-10); NRBC Flagged by Analyzer 0 % (0-5); Neutrophil # 10.62 X10^3/uL (2.7-7.7); Neutrophil % 80.1 % (47-70); Platelet Count 359 K/mm3 (150-450); RBC Distribution Width CV 12.8 % (11.6-14.6); RBC Distribution Width SD 45.3 fl (35.1-43.9); Red Blood Count 5.32 M/mm3 (4.6-6.2); White Blood Count 13.2 K/mm3 (4.4-11.0)
[2024-05-27] MEDS: Ipratropium/Albuterol Sulfate 3 ML AMPUL.NEB INHALATION ×5 (07:48→22:50)
[2024-05-27] MEDS: Albuterol 2.5 MG/3 ML VIAL.NEB. INHALATION (07:48)
[2024-05-27] MEDS: MethylPREDNISolone 125 MG/2 ML Vial IV (07:54)
[2024-05-27 08:04] LABS: Anion Gap 8 (5-15); BUN 14 mg/dL (7-18); BUN/Creat Ratio 12.8 RATIO (10-20); Calcium,Total 9.6 mg/dL (8.5-10.1); Chloride 102 mmol/L (98-107); Creatinine, Serum 1.09 mg/dL (0.70-1.30); EST Glomerular Filtration Rate 72 mL/min (>60); Est Glom Filt Rate - Afr Amer 87 mL/min (>60); Estimated Creatinine Clearance 70.18 ml/min; Glucose 157 mg/dL (74-106); Potassium 4.4 mmol/L (3.5-5.1); Sodium Level 137 mmol/L (136-145); Troponin-I HS 5 pg/mL (3.0-78.0)
[2024-05-27 08:12] LABS: BNP,B-Type NATRIURETIC PEPTIDE 6.5 pg/mL (0-100)
--- NOTE | 2024-05-27 10:01 | HP.PCM.HOS_ITS ---
HPI - General General Date of Admission: 05/27/24 Date of Service: 05/27/24 Chief Complaint: Increasing shortness of breath HPI Narrative MELCHOR LYLE, is a 63 M with seasonal allergies and hypertension as well as suspected COPD and tobacco use who presented to [facility] ED 05/27/2024 with increasing shortness of breath over the past several days and was noted to have an O2 sat of 87% on room air. Chest x-ray with no pneumonia and symptoms consistent with COPD exacerbation. Patient given methylprednisone, DuoNeb, azithromycin hospitalist contacted for admission for COPD exacerbation. Patient endorses increased shortness of breath as well as increased cough productive of sputum and nasal drainage for the past 3 days which she thinks was brought on initially by allergies to his progressively worsened. No fevers, has some chest congestion with chest tightness and all of this is slowly improving with ER interventions. Does smoke a pipe and smokes intermittently throughout the day but cannot quantify this. Denies any swelling in the legs, denies any other new or acute complaints. [facility] Medical History Hypertension Home Medications ?Medication ?Instructions ?Recorded ?Last Taken ?Type diphenhydramine HCl 25 mg tablet 50 mg PO QHS ALLERGIES 05/11/23 05/25/24 History (Allergy) losartan 50 mg tablet (Cozaar) 50 mg PO QHS BLOOD PRESSURE 05/11/23 05/26/24 History albuterol sulfate 90 mcg/actuation 2 inh inhalation Q4H PRN SHORTNESS 05/13/23 05/26/24 Rx breath activated powder inhaler OF BREATH #1 ea amlodipine 5 mg tablet 5 mg PO QHS BLOOD PRESSURE 05/27/24 05/26/24 History Allergy/AdvReac Type Severity Reaction Status Date / Time poison dennis extract Allergy Intermediate Rash Verified 05/27/24 07:20 Social History number of children: 0 Smoking Status: Current every day smoker tobacco type: pipe ROS ROS Narrative General: Denies fever/chills HENT: Denies headache, nasal congestion and drainage, denies sore throat EYES: Denies changes in vision Resp: Increased cough with sputum production increasing shortness of breath Cardiac: Denies chest pain, some chest tightness with the above GI: Denies abdominal pain, denies changes in bowel, denies nausea/vomiting : Denies changes in urination Extremity: Denies swelling MSK: Denies weakness Neuro: Denies any numbness/tingling Heme: Denies any bleeding or bruising Skin: Denies rashes Psychiatric: No complaints voiced Vital Signs Vital Signs Vital Signs: 05/27/24 07:20 05/27/24 07:20 05/27/24 07:26 Temperature 98.4 F 96.4 F L Temperature Source Temporal Temporal Pulse Rate 102 H 160 H Respiratory Rate 32 H 32 H Respiratory Effort Short of Breath Respiratory Pattern Tachypnea Blood Pressure 140/106 H 140/106 H Blood Pressure Mean 117 117 Pulse Ox 92 92 Oxygen Delivery Method Room Air Room Air Room Air Oxygen Flow Rate (L/min) 05/27/24 07:50 05/27/24 07:50 05/27/24 08:00 Temperature Temperature Source Pulse Rate 93 97 Respiratory Rate 16 24 H Respiratory Effort Respiratory Pattern Blood Pressure 129/78 H Blood Pressure Mean 87 Pulse Ox 92 Oxygen Delivery Method Nasal Cannula Oxygen Flow Rate (L/min) 2 05/27/24 08:26 05/27/24 09:00 05/27/24 09:15 Temperature 98.6 F Temperature Source Oral Pulse Rate 95 85 93 Respiratory Rate 25 H 24 H 26 H Respiratory Effort Respiratory Pattern Blood Pressure 127/72 H 133/75 H 135/81 H Blood Pressure Mean 90 92 97 Pulse Ox 91 Oxygen Delivery Method Nasal Cannula Oxygen Flow Rate (L/min) 2 05/27/24 09:37 Temperature 98.4 F Temperature Source Pulse Rate 93 Respiratory Rate 26 H Respiratory Effort Respiratory Pattern Blood Pressure 135/81 H Blood Pressure Mean 99 Pulse Ox 94 Oxygen Delivery Method Oxygen Flow Rate (L/min) Weight Weight: 94.801 kg Body Mass Index (BMI) 34.8 Physical Exam Narrative General: Alert, oriented, no apparent distress HEENT: Atraumatic, normocephalic Eyes: Anicteric, normal conjunctiva, extraocular movements grossly intact Neck: Supple Respiratory: Diffuse wheezes, increased work of breathing especially with conversation Cardiovascular: Regular rate and rhythm GI: Soft, nontender, nondistended Extremities: Trace lower extremity edema Musculoskeletal: Moving all extremities Neuro: No overt focal neurological deficits Skin: No rashes appreciated Psych: Cooperative Results Lab / Micro Data 05/27/24 07:43 05/27/24 07:43 Labs: Laboratory Results - last 24 hr 05/27/24 07:43: WBC 13.2 H, RBC 5.32, Hgb 17.0 H, Hct 50.9, MCV 95.7 H, MCH 32.0, MCHC 33.4, RDW Std Deviation 45.3 H, RDW Coeff of Monica 12.8, Plt Count 359, MPV 9.0, Immature Gran % (Auto) 0.500, Neut % (Auto) 80.1 H, Lymph % (Auto) 10.6 L, [place] % (Auto) 5.1, Eos % (Auto) 2.9, Baso % (Auto) 0.8, Absolute Neuts (auto) 10.6 H, Absolute Lymphs (auto) 1.40, Nucleated RBC % 0, Sodium 137, Potassium 4.4, Chloride 102, Carbon Dioxide 27.0, Anion Gap 8, BUN 14, Creatinine 1.09, Estim Creat Clear Calc 70.18, Est GFR (MDRD) Af Amer 87, Est GFR (MDRD) Non-Af 72, BUN/Creatinine Ratio 12.8, Glucose 157 H, Calcium 9.6, Troponin I High Sens 5, B-Natriuretic Peptide 6.5 Micro: Microbiology 05/27/24 07:50 Mucosa - Nose SARS-CoV-2, Influenza & RSV (PCR) - Final Imaging Radiology Impression Chest X-Ray 05/27/24 07:42 IMPRESSION: No radiographic evidence of acute cardiopulmonary disease. Electronically Signed: Faustino Farooq MD at 8:38 EDT , Assessment & Plan Assessment/Plan (1) Acute exacerbation of chronic obstructive pulmonary disease: PLAN: Plan # Acute hypoxia secondary to acute exacerbation of chronic COPD -87% on room air, requiring 2 L O2 -Admit to floor, continuous O2 monitoring -Chest x-ray: No acute infiltrate -COVID-negative, will obtain respiratory panel, sputum culture if able -O2 in place, wean as tolerated -IV methylprednisone for 2 doses and then de-escalate to p.o. prednisone -Scheduled DuoNebs -Antibiotics: Azithromycin -Incentive spirometer -Mucinex #Hypertension -Continue home amlodipine and losartan # Seasonal allergies -Patient confirmed he takes Benadryl every night for allergies, will continue #Tobacco use -Advise cessation -Nicotine replacement available if desired #DVT ppx: Lovenox subcu Madiha Razo MD Charges/Coding Visit Charges Inpatient E&M: 17074 Init Hosp L1
[2024-05-27] MEDS: Azithromycin 500 MG in Dextrose 5%-Water (250mL Bag) 250 ML 250 MG IV (12:14)
[2024-05-27] MEDS: 0.9% Saline Lock 10 ML Syringe IV ×2 (12:14→16:06)
[2024-05-28] VITALS (9 sets, daily range): BP systolic 141–159; BP diastolic 71–80; PULSE 82–97; RESP 16–22; TEMP 36.4–36.8; O2SAT 92–96
[2024-05-28] MEDS: Ipratropium/Albuterol Sulfate 3 ML AMPUL.NEB INHALATION ×6 (03:10→22:56)
[2024-05-28 07:04] LABS: Absolute Lymphocyte Count 1.34 X10^3/uL (0.83-4.51); Absolute Neutrophil Count 12.2 X10^3/uL (2.0-7.7); Basophil# 0.05 X10^3/uL; Basophil% 0.3 % (0-1); Eosinophil# 0.01 X10^3/uL; Eosinophils% 0.1 % (0-5); Hematocrit 44.4 % (40-54); Hemoglobin 14.9 g/dL (13.0-16.5); Lymphocyte # 1.34 X10^3/ul (0.83-4.51); Lymphocyte % 9.2 % (19-41); Mean Corp Hgb Conc 33.6 g/dL (32-36); Mean Corpuscular Hgb 32.2 pg (27.0-32.0); Mean Corpuscular Volume 95.9 fL (80-94); Mean Platelet Vol. 9.4 fl (6.2-12.0); Monocyte# 0.95 X10^3/uL; Monocyte% 6.5 % (0-10); NRBC Flagged by Analyzer 0 % (0-5); Neutrophil # 12.19 X10^3/uL (2.7-7.7); Neutrophil % 83.3 % (47-70); Platelet Count 367 K/mm3 (150-450); RBC Distribution Width SD 45.8 fl (35.1-43.9); Red Blood Count 4.63 M/mm3 (4.6-6.2); White Blood Count 14.6 K/mm3 (4.4-11.0)
[2024-05-28 07:44] LABS: Anion Gap 7 (5-15); BUN 14 mg/dL (7-18); BUN/Creat Ratio 13.9 RATIO (10-20); Calcium,Total 9.4 mg/dL (8.5-10.1); Chloride 102 mmol/L (98-107); Creatinine, Serum 1.01 mg/dL (0.70-1.30); EST Glomerular Filtration Rate 79 mL/min (>60); Est Glom Filt Rate - Afr Amer 95 mL/min (>60); Estimated Creatinine Clearance 74.94 ml/min; Glucose 139 mg/dL (74-106); Magnesium 2.3 mg/dL (1.6-2.6); Phosphorus 4.1 mg/dL (2.5-4.9); Potassium 3.9 mmol/L (3.5-5.1); Sodium Level 134 mmol/L (136-145); Thyroid Stim Hormone (TSH) 0.502 uIU/mL (0.358-3.740)
--- NOTE | 2024-05-28 08:23 | PN.HOSP_ITS ---
Reason for Visit Reason for Visit: Diagnoses Chronic obstructive pulmonary disease with (acute) exacerbation (05/27/24) Subjective Subjective Still having significant cough and is still short of breath however improving from yesterday, no swelling in lower extremities no chest pain Objective Data Objective Data Vital Signs: Vital Signs Temp Pulse Resp BP Pulse Ox O2 Del Method O2 Flow Rate 98.2 F 88 16 141/71 H 96 Nasal Cannula 2 05/28/24 08:17 05/28/24 08:17 05/28/24 08:17 05/28/24 08:17 05/28/24 08:17 05/28/24 08:17 05/28/24 08:17 Oxygen Flow Rate (L/min) 2 Oxygen Delivery Method Nasal Cannula Weight: 89.4 kg Body Mass Index (BMI) 32.8 Intake & Output: Intake and Output for Last 24 Hours 05/26/24 05/27/24 05/28/24 23:59 23:59 23:59 Intake Total 1255 / 1255 Balance 1255 / 1255 Lab / Micro Data 05/28/24 06:20 05/28/24 06:20 Labs: Laboratory Results - last 24 hr 05/28/24 06:20: WBC 14.6 H, RBC 4.63, Hgb 14.9, Hct 44.4, MCV 95.9 H, MCH 32.2 H , MCHC 33.6, RDW Std Deviation 45.8 H, RDW Coeff of Monica 13.0, Plt Count 367, MPV 9.4, Immature Gran % (Auto) 0.600, Neut % (Auto) 83.3 H, Lymph % (Auto) 9.2 L, [place] % (Auto) 6.5, Eos % (Auto) 0.1, Baso % (Auto) 0.3, Absolute Neuts (auto) 12.2 H, Absolute Lymphs (auto) 1.34, Nucleated RBC % 0, Sodium 134 L, Potassium 3.9, Chloride 102, Carbon Dioxide 25.0, Anion Gap 7, BUN 14, Creatinine 1.01, Estim Creat Clear Calc 74.94, Est GFR (MDRD) Af Amer 95, Est GFR (MDRD) Non-Af 79, BUN/Creatinine Ratio 13.9, Glucose 139 H, Calcium 9.4, Phosphorus 4.1, Magnesium 2.3, TSH 0.502 Micro: Microbiology 05/27/24 11:00 Sputum, Expectorated/Coughed Gram Stain - Final 05/27/24 11:00 Sputum, Expectorated/Coughed Respiratory Culture - Preliminary GNR Poss Pseudomonas sp 05/27/24 11:20 Mucosa - Nasopharyngeal Respiratory Panel (PCR) - Final 05/27/24 07:50 Mucosa - Nose SARS-CoV-2, Influenza & RSV (PCR) - Final Radiography Diagnostic Testing: Radiology Impression Chest X-Ray 05/27/24 07:42 IMPRESSION: No radiographic evidence of acute cardiopulmonary disease. Electronically Signed: Faustino Farooq MD at 8:38 EDT , Physical Exam Narrative General: Alert, oriented, no apparent distress HEENT: Atraumatic, normocephalic Eyes: Anicteric, normal conjunctiva, extraocular movements grossly intact Neck: Supple Respiratory: Diffuse wheezes but they are improving, work of breathing is improving Cardiovascular: Regular rate and rhythm GI: Soft, nontender, nondistended Extremities: Trace lower extremity edema Musculoskeletal: Moving all extremities Neuro: No overt focal neurological deficits Skin: No rashes appreciated Psych: Cooperative Assessment & Plan Assessment/Plan (1) Acute exacerbation of chronic obstructive pulmonary disease: PLAN: Plan # Acute hypoxia secondary to acute exacerbation of chronic COPD and possible Pseudomonas pneumonia -87% on room air, requiring 2 L O2 -Admit to floor, continuous O2 monitoring -Chest x-ray: No acute infiltrate -COVID-negative, will obtain respiratory panel, sputum culture if able -O2 in place, wean as tolerated -IV methylprednisone for 2 doses and then de-escalate to p.o. prednisone -Scheduled DuoNebs -Antibiotics: Azithromycin -Incentive spirometer -Mucinex -05/28: Oxygen requirement slowly improving however patient ambulating around the room on 2 L and dropped to 88%, white blood cell count did increase which may be accounted for by steroids however patient going possible Pseudomonas in sputum, antibiotics changed to Levaquin and awaiting further culture and sensitivity data, continue steroids and nebs. Will need walk test prior to discharge Chronic medical problems: #Hypertension -Continue home amlodipine and losartan # Seasonal allergies -Patient confirmed he takes Benadryl every night for allergies, will continue #Tobacco use -Advise cessation -Nicotine replacement available if desired #DVT ppx: Lovenox subcu Madiha Razo MD Charges/Coding Visit Charges Inpatient E&M: 71936 Subs Hosp L1
[2024-05-28] MEDS: guaiFENesin 1,200 MG Tablet 1200 MG PO ×2 (08:28→21:29)
[2024-05-28] MEDS: Enoxaparin 40 MG/0.4 ML Syringe SC (08:28)
[2024-05-28] MEDS: levoFLOXacin IV 750 MG/150 ML BAG 100 MG IV (09:45)
--- NOTE | 2024-05-28 14:50 | CASEMGMT ---
PATTI BARRAZA Assessment Face to Face with patient for initial transition planning/care coordination assessment. PATTI BARRAZA introduced self and role at [facility], pt voices understanding. Pt is A&Ox4 and is resting comfortably in bed and is calm. Care providers, pharmacy, and demographics verified. Admitting dx: COPD Ex LACE Strata: 1 PCP: [facility] Specialists: Denies Preferred Pharmacy: [facility] Insurance: [facility]. MCR A/B Prescription Benefit: Yes - [facility] LNOK: Delores Bermudez (Sister) Living Arrangements: pt lives with her sister and ARSEN in a single story home with 3 steps to enter ADLs/IADLs: Ind Transportation: Self. ARSEN will drive pt home at DC DME: Pt has access to the following DME: [employer], [employer], and W/[employer]. Pt sister wears home oxygen. Pt is unsure of the company this is supplied through. CM to follow in the case that the pt qualifies for home oxygen. HHC/SNF: Denies Hx or needs Pt?s goal: Home Plan: Home. Pt denies the need for HHC, OP Tx, SNF, CCN/ Pt Link. Pt states that he feels safe returning home at time of DC and denies further questions or concerns. CM to follow O2 requirements. Susu Mariee RN, CM
[2024-05-28] MEDS: amLODIPine 5 MG Tablet PO (21:29)
[2024-05-28] MEDS: Losartan Potassium 50 MG Tablet PO (21:29)
[2024-05-28] MEDS: DiphenhydrAMINE 25 MG Capsule 50 MG PO (21:29)
[2024-05-29] VITALS (7 sets, daily range): BP systolic 119–132; BP diastolic 74–78; PULSE 65–86; RESP 16–20; TEMP 36–36.3; O2SAT 87–97
[2024-05-29] MEDS: Ipratropium/Albuterol Sulfate 3 ML AMPUL.NEB INHALATION ×3 (02:52→11:07)
[2024-05-29] MEDS: 0.9% Saline Lock 10 ML Syringe IV ×2 (05:52→09:34)
[2024-05-29 06:54] LABS: Absolute Neutrophil Count 14.7 X10^3/uL (2.0-7.7); Basophil# 0.02 X10^3/uL; Basophil% 0.1 % (0-1); Hematocrit 46.5 % (40-54); Hemoglobin 15.2 g/dL (13.0-16.5); Lymphocyte % 6.7 % (19-41); Mean Corp Hgb Conc 32.7 g/dL (32-36); Mean Corpuscular Hgb 31.8 pg (27.0-32.0); Mean Corpuscular Volume 97.3 fL (80-94); Mean Platelet Vol. 9.4 fl (6.2-12.0); NRBC Flagged by Analyzer 0 % (0-5); Neutrophil # 14.74 X10^3/uL (2.7-7.7); Neutrophil % 89.1 % (47-70); Platelet Count 377 K/mm3 (150-450); RBC Distribution Width SD 46.9 fl (35.1-43.9); Red Blood Count 4.78 M/mm3 (4.6-6.2); White Blood Count 16.5 K/mm3 (4.4-11.0)
[2024-05-29 08:18] LABS: Anion Gap 7 (5-15); BUN 17 mg/dL (7-18); BUN/Creat Ratio 16.2 RATIO (10-20); Calcium,Total 9.7 mg/dL (8.5-10.1); Chloride 102 mmol/L (98-107); Creatinine, Serum 1.05 mg/dL (0.70-1.30); EST Glomerular Filtration Rate 75 mL/min (>60); Est Glom Filt Rate - Afr Amer 91 mL/min (>60); Estimated Creatinine Clearance 72.08 ml/min; Glucose 149 mg/dL (74-106); Potassium 4.4 mmol/L (3.5-5.1); Sodium Level 135 mmol/L (136-145)
[2024-05-29] MEDS: levoFLOXacin IV 750 MG/150 ML BAG 100 MG IV (09:33)
[2024-05-29] MEDS: Enoxaparin 40 MG/0.4 ML Syringe SC (09:34)
[2024-05-29] MEDS: guaiFENesin 1,200 MG Tablet 1200 MG PO (09:34)
--- NOTE | 2024-05-29 11:33 | CASEMGMT ---
PATTI BARRAZA updated that patient qualifies for home oxygen. PATTI BARRAZA in to discuss Home oxygen setup. Patient wishes for home oxygen to be setup with [facility]. PATTI BARRAZA completed VA paperwork and called [facility] at the [place] [facility]. [facility]a inquired if patient smokes. PATTI BARRAZA updated [facility] that per VA questionaire, patient states he last smoked Monday. Per [facility], patient has to stop smoking for 2 months prior to VA oxygen setup and then be evaluated by [facility] book or script editor. Patient has MCR AB and can home local DME setup oxygen. PATTI BARRAZA updated patient regarding [facility] not paying for home oxygen and will need to be setup locally. PATTI BARRAZA reviewed DME agencies and patient prefers [employer]. Patient denies further needs or concerns at discharge. PATTI BARRAZA sent referral to [employer] via [employer] and tank provided from [employer].
--- NOTE | 2024-05-29 12:43 | DCINST_ITS ---
Discharge Instructions Diet Discharge Diet: No restrictions Activity Discharge Activity: - (Increase activity as tolerated, wear 2 L O2 at all times, no smoking while wearing oxygen) Follow Up Care Test Results: Test results from this visit will be discussed in further detail at your follow- up appointment, if applicable. Discharge Plan Admission Admit Date/Time: 05/27/24 10:02 Primary Reason for Your Visit: Increased SOB and cough Attending Provider: Madiha Razo Primary Care Provider: [facility] Instructions Patient Instructions: Asthma and COPD, COPD Quit Smoking, COPD Controlled Breathing Dc Additional Instructions / Restrictions: DISCHARGE INSTRUCTIONS PLEASE READ *Please take this with you to your next doctors appointment* -You will be discharged on Levaquin, an antibiotic, which you will take for 7 more days -You will be discharged on a prednisone taper: -60 mg daily x3 days -50mg daily x3 days -40mg daily x3 days -30mg daily x3 days -20mg daily x3 days -10mg daily x3 days -You will be discharged on 2 L of home O2 to wear consistently, this may be able to be weaned off or discontinued eventually but you will need to follow-up closely with your outpatient providers for this determination. Is important that you do not smoke while using your oxygen -For your continued congestion please obtain Mucinex [id number] to help with your congestion symptoms -Continue to use your albuterol inhaler as needed, we discussed nebulizers and per discussion you will follow-up with your [facility] doctors for this -Please call your primary care provider's office upon discharge to schedule a hospital follow up within 1 week. -For any concerning signs or symptoms please call 911 or proceed to the nearest emergency department Discharge Orders/Prescriptions Prescriptions: New levofloxacin 750 mg tablet 750 mg PO DAILY 7 Days Qty: 7 0RF prednisone 20 mg Tablet See Taper PO BREAKFAST Qty: 32 0RF Taper: Prednisone Taper 60 mg WITH BREAKFAST for 3 Days and 0 Hour 50 mg WITH BREAKFAST for 3 Days and 0 Hour 40 mg WITH BREAKFAST for 3 Days and 0 Hour 30 mg WITH BREAKFAST for 3 Days and 0 Hour 20 mg WITH BREAKFAST for 3 Days and 0 Hour 10 mg WITH BREAKFAST for 3 Days and 0 Hour Continued diphenhydramine HCl [Allergy] 25 mg tablet 50 mg PO QHS losartan [Cozaar] 50 mg tablet 50 mg PO QHS albuterol sulfate 90 mcg/actuation aerosol powdr breath activated 2 inh inhalation Q4H PRN (Reason: SHORTNESS OF BREATH ) Qty: 1 0RF amlodipine 5 mg Tablet 5 mg PO QHS Referrals / Follow Up: Fredeirck Becker MD [Non-Staff] - [facility] Week [facility] - Disposition Disposition (needs filled in before D/C Order can be placed): Home, Self Care
--- NOTE | 2024-05-29 12:52 | PCM.DC.SUM ---
Providers Date of Admission: 05/27/24 Date of Discharge: 05/29/24 Primary Care Physician: [facility] Reason For Visit: COPD EXACERBATION Diagnosis Discharge Diagnosis (1) Acute exacerbation of chronic obstructive pulmonary disease: Status: Resolved Code(s): J44.1 - Chronic obstructive pulmonary disease with (acute) exacerbation Plan # Acute hypoxia secondary to acute exacerbation of chronic COPD and Pseudomonas pneumonia #Hypertension # Seasonal allergies #Tobacco use Medications at Discharge Home Medications diphenhydramine HCl 25 mg tablet (Allergy) 50 mg PO QHS ALLERGIES 05/11/23 losartan 50 mg tablet (Cozaar) 50 mg PO QHS BLOOD PRESSURE 05/11/23 albuterol sulfate 90 mcg/actuation breath activated powder inhaler 2 inh inhalation Q4H PRN SHORTNESS OF BREATH #1 ea 05/13/23 amlodipine 5 mg tablet 5 mg PO QHS BLOOD PRESSURE 05/27/24 levofloxacin 750 mg tablet 750 mg PO DAILY 7 days #7 tabs 05/29/24 prednisone 20 mg tablet See Taper PO BREAKFAST #32 tabs 05/29/24 Hospital Course Summary of Care Provided Minutes Spent on Discharge: 33 Hospital Course: MELCHOR LYLE, is a 63 M with seasonal allergies and hypertension as well as suspected COPD and tobacco use who presented to [facility] ED 05/27/2024 with increasing shortness of breath over the past several days and was noted to have an O2 sat of 87% on room air. Chest x-ray did not show any acute infiltrate and symptoms were consistent with COPD exacerbation. Patient started on IV steroids, nebs, azithromycin and hospitalist contacted for admission. Patient improved however did have Pseudomonas growing in his sputum, antibiotics switched to Levaquin and patient further improved. Still had some congestion and wheezing but was able to ambulate with 2 L of O2 with improvement in his dyspnea. Discussed discharge and disease course and patient comfortable with discharging today. Overall breathing has improved, congestion present but discussed that this will take time to resolve. No new or acute complaints. Discharge instructions as followed: -You will be discharged on Levaquin, an antibiotic, which you will take for 7 more days -You will be discharged on a prednisone taper: -60 mg daily x3 days -50mg daily x3 days -40mg daily x3 days -30mg daily x3 days -20mg daily x3 days -10mg daily x3 days -You will be discharged on 2 L of home O2 to wear consistently, this may be able to be weaned off or discontinued eventually but you will need to follow-up closely with your outpatient providers for this determination. Is important that you do not smoke while using your oxygen -For your continued congestion please obtain Mucinex [id number] to help with your congestion symptoms -Continue to use your albuterol inhaler as needed, we discussed nebulizers and per discussion you will [facility] for this -Please call your primary care provider's office upon discharge to schedule a hospital follow up within 1 week. -For any concerning signs or symptoms please call 911 or proceed to the nearest emergency department Physical Exam Narrative General: Alert, oriented, no apparent distress HEENT: Atraumatic, normocephalic Eyes: Anicteric, normal conjunctiva, extraocular movements grossly intact Neck: Supple Respiratory: Improving wheezes, no increased work of breathing Cardiovascular: Regular rate and rhythm GI: Soft, nontender, nondistended Extremities: No significant lower extremity edema Musculoskeletal: Moving all extremities Neuro: No overt focal neurological deficits Skin: No rashes appreciated Psych: Cooperative Weight / BMI Weight Weight: 89.4 kg Body Mass Index (BMI) 32.8 ABG / Lab / Microbiology Data 05/29/24 06:07 05/29/24 06:07 Laboratory: Laboratory Results - last 24 hr 05/29/24 06:07: WBC 16.5 H, RBC 4.78, Hgb 15.2, Hct 46.5, MCV 97.3 H, MCH 31.8, MCHC 32.7, RDW Std Deviation 46.9 H, RDW Coeff of Monica 13.0, Plt Count 377, MPV 9.4, Immature Gran % (Auto) 1.100 H, Neut % (Auto) 89.1 H, Lymph % (Auto) 6.7 L, [place] % (Auto) 3.0, Eos % (Auto) 0.0, Baso % (Auto) 0.1, Absolute Neuts (auto) 14.7 H, Absolute Lymphs (auto) 1.10, Nucleated RBC % 0, Sodium 135 L, Potassium 4.4, Chloride 102, Carbon Dioxide 26.0, Anion Gap 7, BUN 17, Creatinine 1.05, Estim Creat Clear Calc 72.08, Est GFR (MDRD) Af Amer 91, Est GFR (MDRD) Non-Af 75, BUN/Creatinine Ratio 16.2, Glucose 149 H, Calcium 9.7 Microbiology: Microbiology 05/27/24 11:00 Sputum, Expectorated/Coughed Gram Stain - Final 05/27/24 11:00 Sputum, Expectorated/Coughed Respiratory Culture - Final Pseudomonas aeruginosa 05/27/24 11:20 Mucosa - Nasopharyngeal Respiratory Panel (PCR) - Final 05/27/24 07:50 Mucosa - Nose SARS-CoV-2, Influenza & RSV (PCR) - Final D/C Instructions Discharge Diet: No restrictions Meaningful Use Info Meaningful Use Meaningful Use Diagnoses (Choose all that apply): None applicable Ischemic Stroke Statin Dosing Therapy Reference: STATIN DOSE THERAPY REFERENCE: * Patients > 75 years receive moderate or high dose statin therapy. * Patients 75 years or YOUNGER should receive HIGH intensity statin dose unless contraindicated. You will be required to document reason for non-treatment if statin daily dose does not meet guidelines. HIGH DOSE STATIN THERAPY DAILY Atorvastatin > than or = to 40 mg Rosuvastatin > than or = to 20 mg Amlodipine + Atorvastatin > than or = to 2.5/40 mg Ezetimibe + Simvastatin 10/80 mg Simvastatin 80mg Discharge Plan Admission Admit Date/Time: 05/27/24 10:02 Primary Reason for Your Visit: Increased SOB and cough Attending Provider: Madiha Razo Primary Care Provider: [facility] Instructions Patient Instructions: Asthma and COPD, COPD Quit Smoking, COPD Controlled Breathing Dc Additional Instructions / Restrictions: DISCHARGE INSTRUCTIONS PLEASE READ *Please take this with you to your next doctors appointment* -You will be discharged on Levaquin, an antibiotic, which you will take for 7 more days -You will be discharged on a prednisone taper: -60 mg daily x3 days -50mg daily x3 days -40mg daily x3 days -30mg daily x3 days -20mg daily x3 days -10mg daily x3 days -You will be discharged on 2 L of home O2 to wear consistently, this may be able to be weaned off or discontinued eventually but you will need to follow-up closely with your outpatient providers for this determination. Is important that you do not smoke while using your oxygen -For your continued congestion please obtain Mucinex [id number] to help with your congestion symptoms -Continue to use your albuterol inhaler as needed, we discussed nebulizers and per discussion you will follow[facility] with [facility] for this -Please call your primary care provider's office upon discharge to schedule a hospital follow up within 1 week. -For any concerning signs or symptoms please call 911 or proceed to the nearest emergency department Discharge Orders/Prescriptions Prescriptions: New levofloxacin 750 mg tablet 750 mg PO DAILY 7 Days Qty: 7 0RF prednisone 20 mg Tablet See Taper PO BREAKFAST Qty: 32 0RF Taper: Prednisone Taper 60 mg WITH BREAKFAST for 3 Days and 0 Hour 50 mg WITH BREAKFAST for 3 Days and 0 Hour 40 mg WITH BREAKFAST for 3 Days and 0 Hour 30 mg WITH BREAKFAST for 3 Days and 0 Hour 20 mg WITH BREAKFAST for 3 Days and 0 Hour 10 mg WITH BREAKFAST for 3 Days and 0 Hour Continued diphenhydramine HCl [Allergy] 25 mg tablet 50 mg PO QHS losartan [Cozaar] 50 mg tablet 50 mg PO QHS albuterol sulfate 90 mcg/actuation aerosol powdr breath activated 2 inh inhalation Q4H PRN (Reason: SHORTNESS OF BREATH ) Qty: 1 0RF amlodipine 5 mg Tablet 5 mg PO QHS Referrals / Follow Up: Frederick Becker MD [Non-Staff] - [facility] Week [facility] - Disposition Disposition (needs filled in before D/C Order can be placed): Home, Self Care Charges/Coding Visit Charges Inpatient E&M: 81382 Disch Hosp >30min
--- NOTE | 2024-05-29 14:48 | PHA.DC.MR.R ---
Pharmacy [place] Med Reconciliation Pharmacy Service has performed discharge medication reconciliation for this patient. Medication education papers prepared, patient discharged when counseling was attempted. Medications reviewed. The patient's discharge medication list was reviewed for discrepancies and discrepancies were resolved. Medications at Discharge Home Medications diphenhydramine HCl 25 mg tablet (Allergy) 50 mg PO QHS ALLERGIES 05/11/23 losartan 50 mg tablet (Cozaar) 50 mg PO QHS BLOOD PRESSURE 05/11/23 albuterol sulfate 90 mcg/actuation breath activated powder inhaler 2 inh inhalation Q4H PRN SHORTNESS OF BREATH #1 ea 05/13/23 amlodipine 5 mg tablet 5 mg PO QHS BLOOD PRESSURE 05/27/24 levofloxacin 750 mg tablet 750 mg PO DAILY 7 days #7 tabs 05/29/24 prednisone 20 mg tablet See Taper PO BREAKFAST #32 tabs 05/29/24
== END 2024-05-29 14:20 | disposition home or self-care (01) | DRG 190 ==
LOC: ED 09:25 → PCU 15:29
PROVIDERS: Admitting Provider Internal Medicine; Emergency Provider Emergency Medicine; Visit Provider Internal Medicine
DX: J44.1 Chronic obstructive pulmonary disease with (acute) exacerbation (principal); J15.1 Pneumonia due to Pseudomonas; I10 Essential (primary) hypertension; J44.0 Chronic obstructive pulmonary disease with (acute) lower respiratory infection; J30.2 Other seasonal allergic rhinitis; F17.290 Nicotine dependence, other tobacco product, uncomplicated
CPT/HCPCS: 36415; 71045; 80048; 83735; 83880; 84100; 84443; 84484; 85025; 87070; 87077; 87184; 87186; 87205; 87631; 87633; 93005; 94640; 94668; 97802; 99284; A4216

== ENCOUNTER 2025-04-20 12:01 | Inpatient (IN) | payer OTHER, SELFPAY ==
[2025-04-20] VITALS (14 sets, daily range): BP systolic 147–159; BP diastolic 78–92; PULSE 82–118; RESP 18–26; TEMP 36.3–36.9; O2SAT 84–99; BMI 33.4; BMI 31.9
--- NOTE | 2025-04-20 12:14 | RAD_ITS ---
PROCEDURE: CHEST 1 VIEW (PORTABLE) 04/20/2025 REASON FOR EXAM: DYSPNEA TECHNIQUE: Frontal view of the chest. COMPARISON: Chest radiograph 05/27/2024. FINDINGS: Hardware: None. Heart: The heart size is normal. Lungs: No focal consolidation, pleural effusion or pneumothorax. Low lung volumes bilaterally. Bones: Degenerative changes are identified within the thoracic spine. RAD/Chest 1 View (Portable) IMPRESSION: No Acute Findings. Reading Location: [id number]
--- NOTE | 2025-04-20 12:14 | EKG12_ITS ---
Test Reason : SOB Blood Pressure : */* mmHG Vent. Rate : 104 BPM Atrial Rate : 104 BPM P-R Int : 150 ms QRS Dur : 80 ms QT Int : 328 ms P-R-T Axes : 10 28 40 degrees QTcB Int : 431 ms Sinus tachycardia Otherwise normal ECG Confirmed by NADINE TERAN, SRIRAM ([id number]), video editor ESTER OROZCO ([id number]) on 04/21/2025 9:46:39 AM Referred By: Confirmed By: SRIRAM MCCOY MD
--- NOTE | 2025-04-20 12:17 | EDS_ITS ---
HPI <FRANCK Sheppard - Last Filed: 04/20/25 13:50> History of Present Illness Chief Complaint: Shortness of Breath Narrative Narrative: 64-year-old male with PMH of HTN, COPD, tobacco use presents with 1 week of increasing productive cough, wheezing, and shortness of breath. No chest pain he had a coughing fit today and remembers his sister asking him if he is okay because he thinks he blacked out for seconds. EMS noted he was 84% on room air and placed him on nasal cannula. He does not wear home oxygen. He smokes a pipe. He denies history of COPD but prior record shows he has COPD. He has an albuterol inhaler. He denies recent fever, chills, or sick contacts. He states he was admitted to the hospital in the past for similar symptoms and required oxygen. At 1 point he was discharged with O2 but then his [facility] insurance did not approve it for further use. PFSH <FRANCK Sheppard - Last Filed: 04/20/25 13:50> [facility] Medical History (Updated 04/20/25 @ 16:03 by Arielle Diehl) Kidney stones Smoker Hypertension Home Medications ?Medication ?Instructions ?Recorded ?Last Taken ?Type diphenhydramine HCl 25 mg tablet 50 mg PO BID PRN THUY RGIES 05/11/23 04/19/25 History (Allergy) losartan 50 mg tablet (Cozaar) 50 mg PO DAILY BLOOD SD ESSURE 05/11/23 04/19/25 History albuterol sulfate 90 mcg/actuation 2 inh inhalation Q4 H PRN SHORTNESS 05/13/23 04/19/25 Rx breath activated powder inhaler OF BREATH #1 ea amlodipine 5 mg tablet 5 mg PO DAILY BLOOD PRESSURE 05/27/24 04/19/25 History Allergy/AdvReac Type Severity Reaction Status Date / Time poison dennis extract Allergy Intermediate Rash Verified 05/27/24 07:20 Social History number of children: 0 Smoking Status: Current every day smoker tobacco type: pipe ROS <FRANCK Sheppard - Last Filed: 04/20/25 13:50> ROS ED ROS Narrative Constitutional: Negative for fever, chills, malaise. CVS: Negative for palpitations, chest pain. Respiratory: Positive for shortness of breath, cough. GI: Negative for abdominal pain, nausea, vomiting. EXAM <FRANCK Sheppard - Last Filed: 04/20/25 13:50> Physical Exam Narrative Exam Narrative: CONST: Patient sitting in bed in mild respiratory distress. EYES: Normal inspection. NECK: Normal inspection. RESP: Mild respiratory distress, tachypneic around 26 breaths/minute, wheezing throughout with minimal air movement. CVS: Regular rate and rhythm, no murmur, no gallop. SKIN: Color normal, no rash, warm, dry, intact. EXTREMITIES: Both feet have dried blood from him picking his skin, no edema. NEURO: Alert and answering questions appropriately. PSYCH: Normal affect. Const Vital Signs: 04/20/25 12:01 04/20/25 12:24 04/20/25 12:37 Temperature 97.4 F L Temperature Source Temporal Pulse Rate 118 H 107 H Respiratory Rate 26 H 20 H Respiratory Effort Short of Breath Labored Accessory Muscle Use Respiratory Depth Deep Respiratory Pattern Tachypnea Blood Pressure 156/92 H Blood Pressure Mean 113 Pulse Ox 92 Oxygen Delivery Method Room Air Nasal Cannula Oxygen Flow Rate (L/min) 2 04/20/25 13:04 04/20/25 14:00 04/20/25 14:05 Temperature 97.8 F 98 F 98 F Temperature Source Oral Oral Pulse Rate 82 92 94 Respiratory Rate 18 24 H 24 H Respiratory Effort Respiratory Depth Respiratory Pattern Blood Pressure 147/92 H 159/87 H 149/89 H Blood Pressure Mean 110 111 109 Pulse Ox 96 96 96 Oxygen Delivery Method Nasal Cannula Nasal Cannula Oxygen Flow Rate (L/min) 2 2 <Dr. Oneal Ng DO - Last Filed: 04/20/25 21:40> Physical Exam Const Vital Signs: 04/20/25 12:01 04/20/25 12:24 04/20/25 12:37 Temperature 97.4 F L Temperature Source Temporal Pulse Rate 118 H 107 H Respiratory Rate 26 H 20 H Respiratory Effort Short of Breath Labored Accessory Muscle Use Respiratory Depth Deep Respiratory Pattern Tachypnea Blood Pressure 156/92 H Blood Pressure Mean 113 Pulse Ox 92 Oxygen Delivery Method Room Air Nasal Cannula Oxygen Flow Rate (L/min) 2 04/20/25 13:04 04/20/25 14:00 04/20/25 14:05 Temperature 97.8 F 98 F 98 F Temperature Source Oral Oral Pulse Rate 82 92 94 Respiratory Rate 18 24 H 24 H Respiratory Effort Respiratory Depth Respiratory Pattern Blood Pressure 147/92 H 159/87 H 149/89 H Blood Pressure Mean 110 111 109 Pulse Ox 96 96 96 Oxygen Delivery Method Nasal Cannula Nasal Cannula Oxygen Flow Rate (L/min) 2 2 MDM <FRANCK Sheppard - Last Filed: 04/20/25 13:50> [facility] MDM Narrative Medical decision making narrative: Differential includes but not limited to COPD exacerbation, pneumonia, ACS 64-year-old male with COPD presents with 1 week of increasing productive cough, wheezing, and dyspnea. He was 84% on RA and was placed on 4 L but then weaned down to 2 L. On initial exam he still in mild respiratory distress and not moving air well. BP 156/92, HR 118, RR 26, 94% on 4 L, afebrile. I ordered IV Solu-Medrol and DuoNebs. WBC is 13.6, normal hemoglobin and platelets. BMP is unremarkable. EKG is nonischemic and troponin is less than 6. I am not concerned for PE as his clinical picture is consistent with a COPD exacerbation. Blood gas shows normal pH and CO2 of 46.3 and he has slightly improved after breathing treatments and I do not think he currently requires BiPAP. His viral swab is negative for COVID/flu/RSV. I discussed the case with the hospitalist for admission for COPD and hypoxia. History & Record Review Discussion w/independent historian: EMS personnel and Patient Additional record(s) reviewed:: Prior inpatient record and Prior labs Lab Data Attestation: I reviewed the patient's lab results. Labs: Laboratory Results - last 24 hr 04/20/25 12:25 WBC 13.6 H RBC 4.93 Hgb 15.9 Hct 46.4 MCV 94.1 H MCH 32.3 H MCHC 34.3 RDW Std Deviation 44.8 H RDW Coeff of Monica 13.1 Plt Count 334 MPV 9.3 Immature Gran % (Auto) 0.400 Neut % (Auto) 80.1 H Lymph % (Auto) 9.1 L [place] % (Auto) 7.4 Eos % (Auto) 2.3 Baso % (Auto) 0.7 Absolute Neuts (auto) 10.9 H Absolute Lymphs (auto) 1.24 Nucleated RBC % 0 Sodium 133 Potassium 4.4 Chloride 95 L Carbon Dioxide 22.7 Anion Gap 15 BUN 15 Creatinine 1.01 Estim Creat Clear Calc 74.63 Est GFR (MDRD) Non-Af 82 BUN/Creatinine Ratio 15.2 Glucose 116 H Calcium 9.3 Troponin T High Sens < 6 ABG Data ABG results: ABG 04/20/25 12:54 Specimen Type NIRMAL Sample Site Not entered VBG pH 7.40 VBG pO2 80 H VBG HCO3 29 H VBG Total CO2 30 VBG O2 Sat (Calc) 96 H VBG Base Excess 4 H POC Mix VBG pCO2 Pt Tmp 46.3 O2 Delivery Device Not entered Radiography Diagnostic Testing: Clinical Impression(s) from Imaging Studies Chest X-Ray 04/20/25 12:14 IMPRESSION: No Acute Findings. Reading Location: [facility] ED attending interpretation of 1 view chest x-ray shows normal heart size, no acute infiltrate. EKG Initial EKG: Attestation: I personally reviewed and interpreted this EKG as follows: Interpretation: No Acute Injury Pattern and Sinus Tachycardia Comments: Sinus tachycardia at 104 bpm Normal intervals, no acute ischemic changes Prior EKG tracings: available for review Prior: Unchanged <Dr. Oenal Ng, DO - Last Filed: 04/20/25 21:40> [facility] MDM Narrative Medical decision making narrative: Differential includes but not limited to COPD exacerbation, pneumonia, ACS 64-year-old male with COPD presents with 1 week of increasing productive cough, wheezing, and dyspnea. He was 84% on RA and was placed on 4 L but then weaned down to 2 L. On initial exam he still in mild respiratory distress and not moving air well. BP 156/92, HR 118, RR 26, 94% on 4 L, afebrile. I ordered IV Solu-Medrol and DuoNebs. WBC is 13.6, normal hemoglobin and platelets. BMP is unremarkable. EKG is nonischemic and troponin is less than 6. I am not concerned for PE as his clinical picture is consistent with a COPD exacerbation. Blood gas shows normal pH and CO2 of 46.3 and he has slightly improved after breathing treatments and I do not think he currently requires BiPAP. His viral swab is negative for COVID/flu/RSV. I discussed the case with the hospitalist for admission for COPD and hypoxia. Supervisory Physician Note Patient was seen and examined with the Advanced Practice Provider. Nursing notes and vital signs have been reviewed. Pertinent old records have been reviewed. I agree with the essential elements of the REUBEN's history, physical exam, assessment, and plan. The differential diagnosis and management options were discussed with the REUBEN. I participated in determining and agree with the management, procedures, final impression and disposition as documented. See changes noted by me. Please see addendum or separate note for any additional details. Gen: A&O x3 Head: Normocephalic, atraumatic Eyes: No sclera icterus, conjunctiva clear ENT: Moist mucous membranes Neck: Trachea midline, No JVD CV: Tachycardic, regular rhythm, no murmurs, no peripheral edema Resp: Decreased in the bases, diffuse expiratory wheezing with minimal airflow, tachypneic, on nasal cannula GI: Abd soft, non-distended, non-tender, no r/r/g Musc: Full ROM, no deformity Skin: Warm, dry Neuro: Alert, oriented, grossly intact, sensation intact Psych: Cooperative, appropriate mood and affect Impression: 1. COPD exacerbation 2. Acute hypoxia secondary to #1 Lab Data Labs: Laboratory Results - last 24 hr 04/20/25 12:25 WBC 13.6 H RBC 4.93 Hgb 15.9 Hct 46.4 MCV 94.1 H MCH 32.3 H MCHC 34.3 RDW Std Deviation 44.8 H RDW Coeff of Monica 13.1 Plt Count 334 MPV 9.3 Immature Gran % (Auto) 0.400 Neut % (Auto) 80.1 H Lymph % (Auto) 9.1 L [place] % (Auto) 7.4 Eos % (Auto) 2.3 Baso % (Auto) 0.7 Absolute Neuts (auto) 10.9 H Absolute Lymphs (auto) 1.24 Nucleated RBC % 0 Sodium 133 Potassium 4.4 Chloride 95 L Carbon Dioxide 22.7 Anion Gap 15 BUN 15 Creatinine 1.01 Estim Creat Clear Calc 74.63 Est GFR (MDRD) Non-Af 82 BUN/Creatinine Ratio 15.2 Glucose 116 H Calcium 9.3 Troponin T High Sens < 6 ABG Data ABG results: ABG 04/20/25 12:54 Specimen Type NIRMAL Sample Site Not entered VBG pH 7.40 VBG pO2 80 H VBG HCO3 29 H VBG Total CO2 30 VBG O2 Sat (Calc) 96 H VBG Base Excess 4 H POC Mix VBG pCO2 Pt Tmp 46.3 O2 Delivery Device Not entered Radiography Diagnostic Testing: Clinical Impression(s) from Imaging Studies Chest X-Ray 04/20/25 12:14 IMPRESSION: No Acute Findings. Reading Location: [id number] Discharge Plan Dx/Rx/DC Orders Clinical Impression: Acute exacerbation of chronic obstructive pulmonary disease (COPD), Hypoxia, Tobacco use Disposition Disposition: Acute Care Hospital [facility] Discharge Date/Time: 04/20/25 15:54
[2025-04-20 12:34] LABS: Hematocrit 46.4 % (40-54); Hemoglobin 15.9 g/dL (13.0-16.5); Immature Granulocytes Count 0.050 X10^3/uL (0.0-0.0); Mean Corp Hgb Conc 34.3 g/dL (32-36); Mean Corpuscular Volume 94.1 fL (80-94); Mean Platelet Vol. 9.3 fl (6.2-12.0); NRBC Flagged by Analyzer 0 % (0-5); Platelet Count 334 K/mm3 (150-450); RBC Distribution Width CV 13.1 % (11.6-14.6); RBC Distribution Width SD 44.8 fl (35.1-43.9); Red Blood Count 4.93 M/mm3 (4.6-6.2); White Blood Count 13.6 K/mm3 (4.4-11.0)
--- OUTSIDE RECORDS SUMMARY | 2025-04-20 12:51 | XMS RPT_ITS | CCD ---
Author Organization [facility] Care Team Providers Care Home Service Director Name Role Phone [facility], [place] Primary Care Provider Dr. Frederick Talley Emergency Provider [phone] Dr. Chino Sandoval Admit Provider [phone] Dr. Chino Sandoval Attending Provider Dr. Chino Sandoval Other Provider Dr. Tay Huggins Attending Provider Dr. Linsey Spivey Attending Provider [phone] Dr. Linsey Spivey Other Provider [phone] Madiha Razo Admitting [facility] [place] Primary Care Unavailable Madiha Razo Consulting Unavailable Madiha Razo Attending Unavailable Madiha Razo Admitting Unavailable [facility] [place] Primary Care Unavailable RazoMadi[facility] Consulting Unavailable Madiha Razo Attending Unavailable Madiha Razo Admitting Unavailable [facility] Primary Care Unavailable Madiha Razo Attending Unavailable Allergies Allergy Classification Reported Allergen(s) Allergy Type Date of Onset Reaction(s) Facility (1 source) POISON DENNIS EXTRACT Drug Allergy 05-11-2023 Rash [facility] (1 source) poison dennis extract Drug allergy (disorder) 05-27-2024 [facility] Repository Medications Current Medications Medication Drug Class(es) Dates Sig (Normalized) Sig (Original) 200 actuat albuterol 0.09 mg/actuat dry powder inhaler (1 source) beta2-Adrenergic Agonist Start: 05-13-2023 Albuterol Sulfate Active 2 INH INHALATION Q4H May 13, 2023 12:00am amLODIPine 5 mg oral tablet (1 source) Dihydropyridine Calcium Channel Jacques Start: 05-13-2023 take 5 mg by mouth once daily Amlodipine Active 5 MG PO DAILY 30 30 May 13, 2023 12:00am aspirin 81 mg chewable tablet (1 source) Platelet Aggregation Inhibitor, Nonsteroidal Anti-inflammatory Drug Start: 05-13-2023 take 81 mg by mouth once daily Aspirin Active 81 MG PO DAILY 30 May 13, 2023 12:00am azithromycin 500 mg oral tablet (1 source) Macrolide Antimicrobial Start: 05-13-2023 take 500 mg by mouth once daily Azithromycin Active 500 MG PO DAILY 2 2 May 13, 2023 12:00am cefdinir 300 mg oral capsule (1 source) Cephalosporin Antibacterial Start: 05-13-2023 take 300 mg by mouth every twelve hours Cefdinir Active 300 MG PO Q12H 6 3 May 13, 2023 12:00am diphenhydrAMINE hydrochloride 25 mg oral tablet (1 source) Histamine-1 Receptor Antagonist Start: 05-11-2023 take 2 tablets by mouth at bedtime Diphenhydramine Hcl (Allergy) 25 mg tablet Active 50 MG PO AT BEDTIME May 11, 2023 12:00am Fluticasone Propion-Salmeterol (1 source) Corticosteroid, beta2-Adrenergic Agonist Start: 05-13-2023 Fluticasone Propion-Salmeterol (Advair Diskus) 250-50 mcg/dose blister with device Active 1 INH INHALATION Q12H 60 May 13, 2023 12:00am losartan potassium 50 mg oral tablet (1 source) Angiotensin 2 Receptor Jacques Start: 05-11-2023 take 1 tablet by mouth once daily Losartan (Cozaar) 50 mg tablet Active 50 MG PO DAILY May 11, 2023 12:00am predniSONE 10 mg oral tablet (1 source) Start: 05-13-2023 Prednisone Active 0 MG PO DAILY May 13, 2023 12:00am Problems Problem Classification Problem Date Documented Da te Episodic/Chronic Chronic obstructive pulmonary disease and bronchiectasis (4 sources) Chronic obstructive lung disease; Translations: [Chronic obstructive pulmonary disease, unspecified] Onset: 05-30-2024 05-13-2023 Chronic Other lower respiratory disease (1 source) Hypoxia; Translations: [Hypoxemia] 05-11-2023 Episodic Other lower respiratory disease (2 sources) Hypoxemia; Translations: [Hypoxemia] Onset: 06-19-2024 05-13-2023 Episodic Results Test Name Value Interpretation Reference Range Facility Basic Metabolic Profile (BMP )on 09-11-2024 BUN/CRE 16.2 RATIO Normal 10-20 [facility] Comment on above: Performed By: #### L 500.2500, L100.0100 #### [facility] [address] [place], [address] CA,Total 9.7 mg/dL Normal 8.5-10.1 [facility] Comment on above: Performed By: #### L 500.2500, L100.0100 #### [facility] [address] [place], [address] Chloride [Moles/Vol] 102 mmol/L Normal 98-107 [facility] Comment on above: Performed By: #### L 500.2500, L100.0100 #### [facility] [address] [place], [address] CO2 [Moles/Vol] 26.0 mmol/L Normal 21.0-32.0 [facility] Comment on above: Performed By: #### L 500.2500, L100.0100 #### [facility] [address] [place], [address] Creatinine [Mass/Vol] 1.05 mg/dL Normal 0.70-1.30 [facility] Comment on above: Result Comment: The validity of the calculated GFR GFRAA in patients over 70 years has not been determined. Clinical correlation is essential. Performed By: #### L 500.2500, L100.0100 #### [facility] [address] [place], [address] ECRCL 72.08 ml/min Normal [facility] Comment on above: Performed By: #### L 500.2500, L100.0100 #### [facility] [address] [place], [address] EST GFR - AA 91 mL/min Normal >60 [facility] Comment on above: Result Comment: Afri can Jamaican GFR Calc Performed By: #### L 500.2500, L100.0100 #### [facility] [address] [place], [address] GAP 7 Normal 5-15 [facility] Comment on above: Performed By: #### L 500.2500, L100.0100 #### [facility] [address] [place], [address] GFR/1.73 sq M.predicted among non-blacks MDRD (S/P/Bld) [Vol rate/Area] 75 mL/min/{1.73_m2} Normal >60 [facility] Comment on above: Result Comment: Non- GFR Calc Performed By: #### L 500.2500, L100.0100 #### [facility] [address] [place], [address] Glucose [Mass/Vol] 149 mg/dL High 74-106 [facility] Comment on above: Result Comment: Fast ing Glucose result greater than or equal to 126 mg/dL suggests DIABETES MELLITUS per A.D.A. criteria. Performed By: #### L 500.2500, L100.0100 #### [facility] [address] [place], [address] Potassium [Moles/Vol] 4.4 mmol/L Normal 3.5-5.1 [facility] Comment on above: Performed By: #### L 500.2500, L100.0100 #### [facility] [address] [place], [address] Sodium [Moles/Vol] 135 mmol/L Low 136-145 [facility] Comment on above: Performed By: #### L 500.2500, L100.0100 #### [facility] [address] [place], [address] Urea nitrogen [Mass/Vol] 17 mg/dL Normal 7-18 [facility] Comment on above: Performed By: #### L 500.2500, L100.0100 #### [facility] [address] [place], [address] CBC W/Diff, Automatedon 09-09 18-2023 Absolute Lymph 1.10 X10 3/uL Normal 0.83-4.51 [facility] Comment on above: Performed By: #### L 500.2500, L100.0100 #### [facility] [address] [place], [address] Absolute Neut 14.7 X10 3/uL High 2.0-7.7 [facility] Comment on above: Performed By: #### L 500.2500, L100.0100 #### [facility] [address] [place], [address] Basophils/100 WBC (Bld) 0.1 % Normal 0-1 [facility] Comment on above: Performed By: #### L 500.2500, L100.0100 #### [facility] [address] [place], [address] Eosinophils/100 WBC (Bld) 0.0 % Normal 0-5 [facility] Comment on above: Performed By: #### L 500.2500, L100.0100 #### [facility] [address] [place], [address] Erythrocyte distribution width (RBC) [Ratio] 13.0 % Normal 11.6-14.6 [facility] Comment on above: Performed By: #### L 500.2500, L100.0100 #### [facility] [address] [place], [address] Hematocrit (Bld) [Volume fraction] 46.5 % Normal 40-54 [facility] Comment on above: Performed By: #### L 500.2500, L100.0100 #### [facility] [address] [place], [address] Hemoglobin (Bld) [Mass/Vol] 15.2 g/dL Normal 13.0-16.5 [facility] Comment on above: Performed By: #### L 500.2500, L100.0100 #### [facility] [address] [place], [address] IG% 1.100 High 0.0-0.9 [facility] Comment on above: Result Comment: IG% - Immature Granulocytes (promyelocytes, myelocytes and metamyelocytes) > 1% indicates that a LEFT SHIFT is Present. Performed By: #### L 500.2500, L100.0100 #### [facility] [address] [place], [address] Lymphocytes/100 WBC (Bld) 6.7 % Low 19-41 [facility] Comment on above: Performed By: #### L 500.2500, L100.0100 #### [facility] [address] [place], [address] MCH (RBC) [Entitic mass] 31.8 pg Normal 27.0-32.0 [facility] Comment on above: Performed By: #### L 500.2500, L100.0100 #### [facility] [address] [place], [address] MCHC (RBC) [Mass/Vol] 32.7 g/dL Normal 32-36 [facility] Comment on above: Performed By: #### L 500.2500, L100.0100 #### [facility] [address] [place], [address] MCV (RBC) [Entitic vol] 97.3 fL High 80-94 [facility] Comment on above: Performed By: #### L 500.2500, L100.0100 #### [facility] [address] [place], [address] Monocytes/100 WBC (Bld) 3.0 % Normal 0-10 [facility] Comment on above: Performed By: #### L 500.2500, L100.0100 #### [facility] [address] [place], [address] Neutrophils/100 WBC (Bld) 89.1 % High 47-70 [facility] Comment on above: Performed By: #### L 500.2500, L100.0100 #### [facility] [address] [place], [address] Nucleated RBC (Bld) [#/Vol] 0 10*3/uL Normal 0-5 [facility] Comment on above: Performed By: #### L 500.2500, L100.0100 #### [facility] [address] [place], [address] Platelet mean volume (Bld) [Entitic vol] 9.4 fL Normal 6.2-12.0 [facility] Comment on above: Performed By: #### L 500.2500, L100.0100 #### [facility] [address] [place], [address] Platelets (Bld) [#/Vol] 377 10*3/uL Normal 150-450 [facility] Comment on above: Performed By: #### L 500.2500, L100.0100 #### [facility] [address] [place], [address] RBC (Bld) [#/Vol] 4.78 10*6/uL Normal 4.6-6.2 [facility] Comment on above: Performed By: #### L 500.2500, L100.0100 #### [facility] [address] [place], [address] RDW SD 46.9 fl High 35.1-43.9 [facility] Comment on above: Performed By: #### L 500.2500, L100.0100 #### [facility] [address] [place], [address] WBC (Bld) [#/Vol] 16.5 10*3/uL High 4.4-11.0 [facility] Comment on above: Performed By: #### L 500.2500, L100.0100 #### [facility] [address] [place], [address] Discharge Instructionon 05-19 Discharge Instruction [facility] Medical Records Department [address] [place] [address] Instructions for Home/Discharge Instructions 05/29/24 1243 MR#: [id number] Acct: [id number] Name: MELCHOR LYLE Rep #: [id number] : 1960 63 From: Madiha Razo MD PCP: [place] [facility] Status:ADM IN Discharge Instructions Diet Discharge Diet: No restrictions Activity Discharge Activity: - (Increase activity as tolerated, wear 2 L O2 at all times, no smoking while wearing oxygen) Follow Up Care Test Results: Test results from this visit will be discussed in further detail at your follow-up appointment, if applicable. Discharge Plan Admission Admit Date/Time: 05/27/24 10:02 Primary Reason for Your Visit: Increased SOB and cough Attending Provider: Madiha Razo Primary Care Provider[place] [facility] Instructions Patient Instructions: Asthma and COPD, COPD Quit Smoking, COPD Controlled Breathing Dc Additional Instructions / Restrictions: DISCHARGE INSTRUCTIONS PLEASE READ *Please take this with you to your next doctors appointment* -You will be discharged on Levaquin, an antibiotic, which you will take for 7 more days -You will be discharged on a prednisone taper: -60 mg daily x3 days -50mg daily x3 days -40mg daily x3 days -30mg daily x3 days -20mg daily x3 days -10mg daily x3 days -You will be discharged on 2 L of home O2 to wear consistently, this may be able to be weaned off or discontinued eventually but you will need to follow-up closely with your outpatient providers for this determination. Is important that you do not smoke while using your oxygen -For your continued congestion please obtain Mucinex [id number] to help with your congestion symptoms -Continue to use your albuterol inhaler as needed, we discussed nebulizers and per discussion you will follow-up with your [place] doctors for this -Please call your primary care provider's office upon discharge to schedule a hospital follow up within 1 week. -For any concerning signs or symptoms please call 911 or proceed to the nearest emergency department Discharge Orders/Prescriptions Prescriptions: New levofloxacin 750 mg tablet 750 mg PO DAILY 7 Days Qty: 7 0RF prednisone 20 mg Tablet See Taper PO BREAKFAST Qty: 32 0RF Taper: Prednisone Taper 60 mg WITH BREAKFAST for 3 Days and 0 Hour 50 mg WITH BREAKFAST for 3 Days and 0 Hour 40 mg WITH BREAKFAST for 3 Days and 0 Hour 30 mg WITH BREAKFAST for 3 Days and 0 Hour 20 mg WITH BREAKFAST for 3 Days and 0 Hour 10 mg WITH BREAKFAST for 3 Days and 0 Hour Continued diphenhydramine HCl [Allergy] 25 mg tablet 50 mg PO QHS losartan [Cozaar] 50 mg tablet 50 mg PO QHS albuterol sulfate 90 mcg/actuation aerosol powdr breath activated 2 inh inhalation Q4H PRN (Reason: SHORTNESS OF BREATH ) Qty: 1 0RF amlodipine 5 mg Tablet 5 mg PO QHS Referrals / Follow Up: Frederick Becker MD [Non-Staff] - Within 1 [place] [facility] [Primary Care Provider] - Disposition Disposition (needs filled in before D/C Order can be placed): Home, Self Care 05/29/24 1251 Madiha Razo MD CC: [facility] Signed Normal [facility] Respiratory Cultureon 2023 RESPC Pseudomonas aeruginosa Amount Growth 1+ Pseudomonas aeruginosa: REACTION Aztreonam Islt KB 27 S Pseudomonas aeruginosa: REACTION Amikacin Islt ARMAAN <=2 S Cefepime Islt ARMAAN 2 S Ciprofloxacin Islt ARMAAN <=0.25 S Imipenem Islt ARMAAN 1 S levoFLOXacin Islt ARMAAN 0.5 S Meropenem Islt ARMAAN <=0.25 S Pip+Tazo Islt ARMAAN 8 S Tobramycin Islt ARMAAN <=1 S Normal [facility] Comment on above: Performed By: #### M 100.9940, M100.1999 ####[facility] [address] [place], [place], [address] Basic Metabolic Profile (BMP )on 05-28-2024 BUN/CRE 13.9 RATIO Normal 07-07 [facility] Comment on above: Performed By: #### L 501.2300, L501.1720, L501.5200, L500.2500, L100.0100 #### [facility] [address] [place], [address] CA,Total 9.4 mg/dL Normal 8.5-10.1 [facility] Comment on above: Performed By: #### L 501.2300, L501.9520, L501.5200, L500.2500, L100.0100 #### [facility] [address] [place], [address] Chloride [Moles/Vol] 102 mmol/L Normal 98-107 [facility] Comment on above: Performed By: #### L 501.2300, L501.9520, L501.5200, L500.2500, L100.0100 #### [facility] [address] [place], [address] CO2 [Moles/Vol] 25.0 mmol/L Normal 21.0-32.0 [facility] Comment on above: Performed By: #### L 501.2300, L501.9520, L501.5200, L500.2500, L100.0100 #### [facility] [address] [place], [address] Creatinine [Mass/Vol] 1.01 mg/dL Normal 0.70-1.30 [facility] Comment on above: Result Comment: The validity of the calculated GFR GFRAA in patients over 70 years has not been determined. Clinical correlation is essential. Performed By: #### L 501.2300, L501.9520, L501.5200, L500.2500, L100.0100 #### [facility] [address] [place], [address] ECRCL 74.94 ml/min Normal [facility] Comment on above: Performed By: #### L 501.2300, L501.9520, L501.5200, L500.2500, L100.0100 #### [facility] [address] [place], [address] EST GFR - AA 95 mL/min Normal >60 [facility] Comment on above: Result Comment: Afri can Jamaican GFR Calc Performed By: #### L 501.2300, L501.9520, L501.5200, L500.2500, L100.0100 #### [facility] [address] [place], [address] GAP 7 Normal 5-15 [facility] Comment on above: Performed By: #### L 501.2300, L501.9520, L501.5200, L500.2500, L100.0100 #### [facility] [address] [place], [address] GFR/1.73 sq M.predicted among non-blacks MDRD (S/P/Bld) [Vol rate/Area] 79 mL/min/{1.73_m2} Normal >60 [facility] Comment on above: Result Comment: Non- GFR Calc Performed By: #### L 501.2300, L501.9520, L501.5200, L500.2500, L100.0100 #### [facility] [address] [place], [address] Glucose [Mass/Vol] 139 mg/dL High 74-106 [facility] Comment on above: Result Comment: Fast ing Glucose result greater than or equal to 126 mg/dL suggests DIABETES MELLITUS per A.D.A. criteria. Performed By: #### L 501.2300, L501.9520, L501.5200, L500.2500, L100.0100 #### [facility] [address] [place], [address] Potassium [Moles/Vol] 3.9 mmol/L Normal 3.5-5.1 [facility] Comment on above: Performed By: #### L 501.2300, L501.9520, L501.5200, L500.2500, L100.0100 #### [facility] [address] [place], [address] Sodium [Moles/Vol] 134 mmol/L Low 136-145 [facility] Comment on above: Performed By: #### L 501.2300, L501.9520, L501.5200, L500.2500, L100.0100 #### [facility] [address] [place], [address] Urea nitrogen [Mass/Vol] 14 mg/dL Normal 7-18 [facility] Comment on above: Performed By: #### L 501.2300, L501.9520, L501.5200, L500.2500, L100.0100 #### [facility] [address] [place], [address] CBC W/Diff, Automatedon 05-19 0-2023 Absolute Lymph 1.34 X10 3/uL Normal 0.83-4.51 [facility] Comment on above: Performed By: #### L 501.2300, L501.9520, L501.5200, L500.2500, L100.0100 #### [facility] [address] [place], [address] Absolute Neut 12.2 X10 3/uL High 2.0-7.7 [facility] Comment on above: Performed By: #### L 501.2300, L501.9520, L501.5200, L500.2500, L100.0100 #### [facility] [address] [place], [address] Basophils/100 WBC (Bld) 0.3 % Normal 0-1 [facility] Comment on above: Performed By: #### L 501.2300, L501.9520, L501.5200, L500.2500, L100.0100 #### [facility] [address] [place], [address] Eosinophils/100 WBC (Bld) 0.1 % Normal 0-5 [facility] Comment on above: Performed By: #### L 501.2300, L501.9520, L501.5200, L500.2500, L100.0100 #### [facility] [address] [place], [address] Erythrocyte distribution width (RBC) [Ratio] 13.0 % Normal 11.6-14.6 [facility] Comment on above: Performed By: #### L 501.2300, L501.9520, L501.5200, L500.2500, L100.0100 #### [facility] [address] [place], [address] Hematocrit (Bld) [Volume fraction] 44.4 % Normal 40-54 [facility] Comment on above: Performed By: #### L 501.2300, L501.9520, L501.5200, L500.2500, L100.0100 #### [facility] [address] [place], [address] Hemoglobin (Bld) [Mass/Vol] 14.9 g/dL Normal 13.0-16.5 [facility] Comment on above: Performed By: #### L 501.2300, L501.9520, L501.5200, L500.2500, L100.0100 #### [facility] [address] [place], [address] IG% 0.600 Normal 0.0-0.9 [facility] Comment on above: Result Comment: IG% - Immature Granulocytes (promyelocytes, myelocytes and metamyelocytes) > 1% indicates that a LEFT SHIFT is Present. Performed By: #### L 501.2300, L501.9520, L501.5200, L500.2500, L100.0100 #### [facility] [address] [place], [address] Lymphocytes/100 WBC (Bld) 9.2 % Low 19-41 [facility] Comment on above: Performed By: #### L 501.2300, L501.9520, L501.5200, L500.2500, L100.0100 #### [facility] [address] [place], [address] MCH (RBC) [Entitic mass] 32.2 pg High 27.0-32.0 [facility] Comment on above: Performed By: #### L 501.2300, L501.9520, L501.5200, L500.2500, L100.0100 #### [facility] [address] [place], [address] MCHC (RBC) [Mass/Vol] 33.6 g/dL Normal 32-36 [facility] Comment on above: Performed By: #### L 501.2300, L501.9520, L501.5200, L500.2500, L100.0100 #### [facility] [address] [place], [address] MCV (RBC) [Entitic vol] 95.9 fL High 80-94 [facility] Comment on above: Performed By: #### L 501.2300, L501.9520, L501.5200, L500.2500, L100.0100 #### [facility] [address] [place], [address] Monocytes/100 WBC (Bld) 6.5 % Normal 0-10 [facility] Comment on above: Performed By: #### L 501.2300, L501.9520, L501.5200, L500.2500, L100.0100 #### [facility] [address] [place], [address] Neutrophils/100 WBC (Bld) 83.3 % High 47-70 [facility] Comment on above: Performed By: #### L 501.2300, L501.9520, L501.5200, L500.2500, L100.0100 #### [facility] [address] [place], [address] Nucleated RBC (Bld) [#/Vol] 0 10*3/uL Normal 0-5 [facility] Comment on above: Performed By: #### L 501.2300, L501.9520, L501.5200, L500.2500, L100.0100 #### [facility] [address] [place], [address] Platelet mean volume (Bld) [Entitic vol] 9.4 fL Normal 6.2-12.0 [facility] Comment on above: Performed By: #### L 501.2300, L501.9520, L501.5200, L500.2500, L100.0100 #### [facility] [address] [place], [address] Platelets (Bld) [#/Vol] 367 10*3/uL Normal 150-450 [facility] Comment on above: Performed By: #### L 501.2300, L501.9520, L501.5200, L500.2500, L100.0100 #### [facility] [address] [place], [address] RBC (Bld) [#/Vol] 4.63 10*6/uL Normal 4.6-6.2 [facility] Comment on above: Performed By: #### L 501.2300, L501.9520, L501.5200, L500.2500, L100.0100 #### [facility] [address] [place], [address] RDW SD 45.8 fl High 35.1-43.9 [facility] Comment on above: Performed By: #### L 501.2300, L501.9520, L501.5200, L500.2500, L100.0100 #### [facility] [address] [place], [address] WBC (Bld) [#/Vol] 14.6 10*3/uL High 4.4-11.0 [facility] Comment on above: Performed By: #### L 501.2300, L501.9520, L501.5200, L500.2500, L100.0100 #### [facility] [address] [place], [address] Magnesiumon 05-28-2024 Magnesium [Mass/Vol] 2.3 mg/dL Normal 1.6-2.6 [facility] Comment on above: Performed By: #### L 501.2300, L501.9520, L501.5200, L500.2500, L100.0100 ####[facility] [address] [place], [address] Phosphoruson 05-28-2024 Phosphate [Mass/Vol] 4.1 mg/dL Normal 2.5-4.9 [facility] Comment on above: Performed By: #### L 501.2300, L501.9520, L501.5200, L500.2500, L100.0100 ####[facility] [address] [place], [address] Thyroid Stim Hormone (TSH)on 05-28-2024 TSH 0.502 uIU/mL Normal 0.358-3.740 [facility] Comment on above: Performed By: #### L 501.2300, L501.9520, L501.5200, L500.2500, L100.0100 ####[facility] [address] [place], [address] 12 Lead EKGon 05-27-2024 12 Lead EKG [facility] Cardiovascular Services [address] [place] [address] 12 Lead EKG 05/27/24 0728 MR#: [id number] Acct: [id number] Name: MELCHOR LYLE Rep #: [id number] : 1960 63 From: Vance oGmez MD Attending Dr: Dr. Madiha Razo MD Status: ADM IN Ordering Dr: Mike Headley DO Date: 05/27/24 Location: [facility] Sex: M C Admitted: 05/27/24 Test Reason : SOB Blood Pressure : / mmHG Vent. Rate : 096 BPM Atrial Rate : 096 BPM P-R Int : 168 ms QRS Dur : 068 ms QT Int : 324 ms P-R-T Axes : 031 030 052 degrees QTc Int : 409 ms Normal sinus rhythm Normal ECG Confirmed by NADINE TERAN, VANCE ([id number]), editor in chief newspaper HUMZA CANO ([id number]) on 05/28/2024 7:34:34 AM Referred By: Confirmed By:VANCE GOMEZ MD 05/28/24 0734 Date Vance Gomez MD CC: Dr. Mike Headley DO; Dr. Madiha Razo MD; [facility] Signed Normal [facility] BNP,B-Type NATRIURETIC PEPTI Jeovany 05-27-2024 Natriuretic peptide B (Bld) [Mass/Vol] 6.5 pg/mL Normal 0-100 [facility] Comment on above: Performed By: #### L 500.2500, L501.4020, L100.0100, L503.6620 ####[facility] [address] [place], [address] Basic Metabolic Profile (BMP )on 05-27-2024 BUN/CRE 12.8 RATIO Normal 10-20 [facility] Comment on above: Order Comment: 'TROP ' Serial specimen #1, #2 or #3: 1 Performed By: #### L 500.2500, L501.4020, L100.0100, L503.6620 ####[facility] [address] [place], [address] CA,Total 9.6 mg/dL Normal 8.5-10.1 [facility] Comment on above: Order Comment: 'TROP ' Serial specimen #1, #2 or #3: 1 Performed By: #### L 500.2500, L501.4020, L100.0100, L503.6620 ####[facility] [address] [place], [address] Chloride [Moles/Vol] 102 mmol/L Normal 98-107 [facility] Comment on above: Order Comment: 'TROP ' Serial specimen #1, #2 or #3: 1 Performed By: #### L 500.2500, L501.4020, L100.0100, L503.6620 ####[facility] [address] [place], [address] CO2 [Moles/Vol] 27.0 mmol/L Normal 21.0-32.0 [facility] Comment on above: Order Comment: 'TROP ' Serial specimen #1, #2 or #3: 1 Performed By: #### L 500.2500, L501.4020, L100.0100, L503.6620 ####[facility] [address] [place], [address] Creatinine [Mass/Vol] 1.09 mg/dL Normal 0.70-1.30 [facility] Comment on above: Order Comment: 'TROP ' Serial specimen #1, #2 or #3: 1 Result Comment: The validity of the calculated GFR GFRAA in patients over 70 years has not been determined. Clinical correlation is essential. Performed By: #### L 500.2500, L501.4020, L100.0100, L503.6620 ####[facility] [address] [place], [address] ECRCL 70.18 ml/min Normal [facility] Comment on above: Order Comment: 'TROP ' Serial specimen #1, #2 or #3: 1 Performed By: #### L 500.2500, L501.4020, L100.0100, L503.6620 ####[facility] [address] [place], [address] EST GFR - AA 87 mL/min Normal >60 [facility] Comment on above: Order Comment: 'TROP ' Serial specimen #1, #2 or #3: 1 Result Comment: Afri can Jamaican GFR Calc Performed By: #### L 500.2500, L501.4020, L100.0100, L503.6620 ####[facility] [address] [place], [address] GAP 8 Normal 5-15 [facility] Comment on above: Order Comment: 'TROP ' Serial specimen #1, #2 or #3: 1 Performed By: #### L 500.2500, L501.4020, L100.0100, L503.6620 ####[facility] [address] [place], [address] GFR/1.73 sq M.predicted among non-blacks MDRD (S/P/Bld) [Vol rate/Area] 72 mL/min/{1.73_m2} Normal >60 [facility] Comment on above: Order Comment: 'TROP ' Serial specimen #1, #2 or #3: 1 Result Comment: Non- GFR Calc Performed By: #### L 500.2500, L501.4020, L100.0100, L503.6620 ####[facility] [address] [place], [address] Glucose [Mass/Vol] 157 mg/dL High 74-106 [facility] Comment on above: Order Comment: 'TROP ' Serial specimen #1, #2 or #3: 1 Result Comment: Fast ing Glucose result greater than or equal to 126 mg/dL suggests DIABETES MELLITUS per A.D.A. criteria. Performed By: #### L 500.2500, L501.4020, L100.0100, L503.6620 ####[facility] [address] [place], [address] Potassium [Moles/Vol] 4.4 mmol/L Normal 3.5-5.1 [facility] Comment on above: Order Comment: 'TROP ' Serial specimen #1, #2 or #3: 1 Performed By: #### L 500.2500, L501.4020, L100.0100, L503.6620 ####[facility] [address] [place], [address] Sodium [Moles/Vol] 137 mmol/L Normal 136-145 [facility] Comment on above: Order Comment: 'TROP ' Serial specimen #1, #2 or #3: 1 Performed By: #### L 500.2500, L501.4020, L100.0100, L503.6620 ####[facility] [address] [place], [address] Urea nitrogen [Mass/Vol] 14 mg/dL Normal 7-18 [facility] Comment on above: Order Comment: 'TROP ' Serial specimen #1, #2 or #3: 1 Performed By: #### L 500.2500, L501.4020, L100.0100, L503.6620 ####[facility] [address] [place], [address] CBC W/Diff, Automatedon 09-0 9-4 Absolute Lymph 1.40 X10 3/uL Normal 0.83-4.51 [facility] Comment on above: Performed By: #### L 500.2500, L501.4020, L100.0100, L503.6620 ####[facility] [address] [place], [address] Absolute Neut 10.6 X10 3/uL High 2.0-7.7 [facility] Comment on above: Performed By: #### L 500.2500, L501.4020, L100.0100, L503.6620 ####[facility] [address] [place], [address] Basophils/100 WBC (Bld) 0.8 % Normal 0-1 [facility] Comment on above: Performed By: #### L 500.2500, L501.4020, L100.0100, L503.6620 ####[facility] [address] [place], [address] Eosinophils/100 WBC (Bld) 2.9 % Normal 0-5 [facility] Comment on above: Performed By: #### L 500.2500, L501.4020, L100.0100, L503.6620 ####[facility] [address] [place], [address] Erythrocyte distribution width (RBC) [Ratio] 12.8 % Normal 11.6-14.6 [facility] Comment on above: Performed By: #### L 500.2500, L501.4020, L100.0100, L503.6620 ####[facility] [address] [place], [address] Hematocrit (Bld) [Volume fraction] 50.9 % Normal 40-54 [facility] Comment on above: Performed By: #### L 500.2500, L501.4020, L100.0100, L503.6620 ####[facility] [address] [place], [address] Hemoglobin (Bld) [Mass/Vol] 17.0 g/dL High 13.0-16.5 [facility] Comment on above: Performed By: #### L 500.2500, L501.4020, L100.0100, L503.6620 ####[facility] [address] [place], [address] IG% 0.500 Normal 0.0-0.9 [facility] Comment on above: Result Comment: IG% - Immature Granulocytes (promyelocytes, myelocytes and metamyelocytes) > 1% indicates that a LEFT SHIFT is Present. Performed By: #### L 500.2500, L501.4020, L100.0100, L503.6620 ####[facility] [address] [place], [address] Lymphocytes/100 WBC (Bld) 10.6 % Low 19-41 [facility] Comment on above: Performed By: #### L 500.2500, L501.4020, L100.0100, L503.6620 ####[facility] [address] [place], [address] MCH (RBC) [Entitic mass] 32.0 pg Normal 27.0-32.0 [facility] Comment on above: Performed By: #### L 500.2500, L501.4020, L100.0100, L503.6620 ####[facility] [address] [place], [address] MCHC (RBC) [Mass/Vol] 33.4 g/dL Normal 32-36 [facility] Comment on above: Performed By: #### L 500.2500, L501.4020, L100.0100, L503.6620 ####[facility] [address] [place], [address] MCV (RBC) [Entitic vol] 95.7 fL High 80-94 [facility] Comment on above: Performed By: #### L 500.2500, L501.4020, L100.0100, L503.6620 ####[facility] [address] [place], [address] Monocytes/100 WBC (Bld) 5.1 % Normal 0-10 [facility] Comment on above: Performed By: #### L 500.2500, L501.4020, L100.0100, L503.6620 ####[facility] [address] [place], [address] Neutrophils/100 WBC (Bld) 80.1 % High 47-70 [facility] Comment on above: Performed By: #### L 500.2500, L501.4020, L100.0100, L503.6620 ####[facility] [address] [place], [address] Nucleated RBC (Bld) [#/Vol] 0 10*3/uL Normal 0-5 [facility] Comment on above: Performed By: #### L 500.2500, L501.4020, L100.0100, L503.6620 ####[facility] [address] [place], [address] Platelet mean volume (Bld) [Entitic vol] 9.0 fL Normal 6.2-12.0 [facility] Comment on above: Performed By: #### L 500.2500, L501.4020, L100.0100, L503.6620 ####[facility] [address] [place], [address] Platelets (Bld) [#/Vol] 359 10*3/uL Normal 150-450 [facility] Comment on above: Performed By: #### L 500.2500, L501.4020, L100.0100, L503.6620 ####[facility] [address] [place], [address] RBC (Bld) [#/Vol] 5.32 10*6/uL Normal 4.6-6.2 [facility] Comment on above: Performed By: #### L 500.2500, L501.4020, L100.0100, L503.6620 ####[facility] [address] [place], [address] RDW SD 45.3 fl High 35.1-43.9 [facility] Comment on above: Performed By: #### L 500.2500, L501.4020, L100.0100, L503.6620 ####[facility] [address] [place], [address] WBC (Bld) [#/Vol] 13.2 10*3/uL High 4.4-11.0 [facility] Comment on above: Performed By: #### L 500.2500, L501.4020, L100.0100, L503.6620 ####[facility] [address] [place], [address] Chest 1 View (Portable)on Chest 1 View (Portable) [facility] Imaging Services [address] [place] [address] Chest 1 View (Portable) MR#: [id number] Acct: [id number] Name: MELCHOR LYLE Rep #: [id number] : 1960 M 63 From: Faustino Alanis PCP: [facility] Status: [facility] ER Study: Chest 1 View (Portable) Date of Exam: 05/27/24 Exam# [id number] Ordering Dr: Mike Headley DO [id number] INDICATION: cough/dyspnea EXAMINATION/TECHNIQU E: X-RAY - XR Chest 1 View COMPARISON: Prior study dated: 05/11/2023 ____ FINDINGS: LINES/DEVICES: None. LUNGS: No consolidation, edema or effusion. No pneumothorax. MEDIASTINUM AND CARDIOVASCULAR STRUCTURES: Cardiac silhouette not enlarged. Central airways and mediastinal contour are unremarkable. BONES AND SOFT TISSUES: Unremarkable. RAD/Chest 1 View (Portable) IMPRESSION: No radiographic evidence of acute cardiopulmonary disease. Electronically Signed: Faustino Farooq MD at 8:38 EDT , CC: Dr. Mike Headley DO; [facility] [employer]: Signed Normal [facility] Emergency Department Summary on 05-27-2024 Emergency Department Summary [facility] Medical Records Department [address] [place] [address] Emergency Department Summary 05/27/24 MR#: [id number] Acct: [id number] Name: MELCHOR LYLE Rep #: [id number] : 1960 63 From: Mike Headley DO PCP: [facility] Status:ADM IN Location: [place] [address] HPI History of Present Illness Chief Complaint: Shortness of Breath Informant: patient and EMS Narrative Narrative: 63-year-old male presenting to the emergency room chief complaint of dyspnea. Patient states that he is a pack smoker but has never been diagnosed with a form of COPD or asthma. He notes that for about 3 days he has had nasal drainage as well as cough with sputum production. He states he has extreme allergies. No reported fevers. He states that he has a hard time getting the sputum up and when he gets into coughing fits he develops rhinorrhea. He denies any leg swelling. He states he was told during his last hospital admission last year that he has an enlarged heart. He states he used an albuterol rescue inhaler over the past couple days. He sees the [facility] in [place]. No vomiting or diarrhea. Denies any chest pain. [facility] Medical History Hypertension Home Medications ???Medication ???Instructions ???Recorded ???Last Taken ???Type diphenhydramine HCl 25 mg tablet 50 mg PO QHS 05/11/23 Unknown History (Allergy) losartan 50 mg tablet (Cozaar) 50 mg PO DAILY 05/11/23 Unknown History albuterol sulfate 90 mcg/actuation 2 inh inhalation Q4H PRN 05/13/23 Unknown Rx breath activated powder inhaler Dyspnea,wheezing #1 ea amlodipine 5 mg tablet 5 mg PO DAILY 30 days #30 tabs 05/13/23 Unknown Rx aspirin 81 mg chewable tablet 81 mg PO DAILY 30 days #30 tabs 05/13/23 Unknown Rx azithromycin 500 mg tablet 500 mg PO DAILY 2 days #2 tabs 05/13/23 Unknown Rx cefdinir 300 mg capsule 300 mg PO Q12H 3 days #6 caps 05/13/23 Unknown Rx fluticasone 250 mcg-salmeterol 50 1 inh inhalation Q12H #60 ea 05/13/23 Unknown Rx mcg/dose blistr powdr for inhalation (Advair Diskus) prednisone 10 mg tablet See Taper PO DAILY COPD 05/13/23 Unknown Rx exacerbation #30 tabs Allergy/AdvReac Type Severity Reaction Status Date / Time poison dennis extract Allergy Intermediate Rash Verified 05/27/24 07:20 Social History number of children: 0 Smoking Status: Current every day smoker tobacco type: pipe ROS ROS ED Constitutional Constitutional ED: Denies chills, fever(s), sweats or weight loss Eyes Eyes: Denies change in vision or diplopia ENT ENT ED: Reports rhinorrhea; Denies ear pain or sore throat Cardiovascular Cardiovascular: Denies chest pain, orthopnea, palpitations or racing heartbeat Respiratory/Chest Respiratory/Chest: Reports cough, dyspnea, dyspnea on exertion and sputum; Denies orthopnea Gastrointestinal Gastrointestinal: Denies abdominal pain, diarrhea, nausea or vomiting Genitourinary Genitourinary ED: Denies dysuria, hematuria or urinary frequency Musculoskeletal Musculoskeletal: Denies arthralgias or myalgias Integumentary Denies abscess or rash Neurologic Neurologic: Denies headache(s) or weakness Psychiatric Psychiatric: Denies anxiety, depression, suicidal ideation or suicidal thoughts Endocrine Endocrinology: Denies polydipsia, polyphagia or polyuria Allergic/Immunologic Allergic/Immunologic ED: Denies mouth swelling, tongue swelling or urticaria EXAM Physical Exam Const Vital Signs: 05/27/24 07:20 05/27/24 07:20 05/27/24 07:26 Temperature 98.4 F 96.4 F L Temperature Source Temporal Temporal Pulse Rate 102 H 160 H Respiratory Rate 32 H 32 H Respiratory Effort Short of Breath Respiratory Pattern Tachypnea Blood Pressure 140/106 H 140/106 H Blood Pressure Mean 117 117 Pulse Ox 92 92 Oxygen Delivery Method Room Air Room Air Room Air Oxygen Flow Rate (L/min) 05/27/24 07:50 05/27/24 07:50 05/27/24 08:00 Temperature Temperature Source Pulse Rate 93 97 Respiratory Rate 16 24 H Respiratory Effort Respiratory Pattern Blood Pressure 129/78 H Blood Pressure Mean 87 Pulse Ox 92 Oxygen Delivery Method Nasal Cannula Oxygen Flow Rate (L/min) 2 05/27/24 08:26 Temperature 98.6 F Temperature Source Oral Pulse Rate 95 Respiratory Rate 25 H Respiratory Effort Respiratory Pattern Blood Pressure 127/72 H Blood Pressure Mean 90 Pulse Ox 91 Oxygen Delivery Method Nasal Cannula Oxygen Flow Rate (L/min) 2 Positive well nourished and well developed General Appearance ED: well developed and NAD HEENT Reports normocephalic, head/scalp atraumatic and moist mucous membranes Eyes PERRL and EOMs intact bilaterally (more content not included)... Normal [facility] Gram Stainon 05-27-2024 GS Acceptable Specimen? Yes (<25 Epithelial cells per/lpf) Gram Stain 1+ White Blood Cells 2+ Epithelial cells 3+ Gram positive cocci in chains and clusters 1+ Gram positive rods 1+ Gram negative rods Normal [facility] Comment on above: Performed By: #### M 100.2400, M100.1999 ####[facility] [address] [facility], [address] H AND P Exam - [facility] 05-27-2024 H&P Exam - Hospitalist [facility] Medical Records Department [address] [place] [address] H P Exam - Hospitalist 05/27/24 1001 MR#: [id number] Acct: [id number] Name: MELCHOR LYLE Rep #: [id number] : 1960 63 From: Madiha Razo MD PCP: [facility] Status:ADM IN Location: [facility] [id number] HPI - General General Date of Admission: 05/27/24 Date of Service: 05/27/24 Chief Complaint: Increasing shortness of breath HPI Narrative MELCHOR LYLE, is a 63 M with seasonal allergies and hypertension as well as suspected COPD and tobacco use who presented to [facility] ED 05/27/2024 with increasing shortness of breath over the past several days and was noted to have an O2 sat of 87% on room air. Chest x-ray with no pneumonia and symptoms consistent with COPD exacerbation. Patient given methylprednisone, DuoNeb, azithromycin hospitalist contacted for admission for COPD exacerbation. Patient endorses increased shortness of breath as well as increased cough productive of sputum and nasal drainage for the past 3 days which she thinks was brought on initially by allergies to his progressively worsened. No fevers, has some chest congestion with chest tightness and all of this is slowly improving with ER interventions. Does smoke a pipe and smokes intermittently throughout the day but cannot quantify this. Denies any swelling in the legs, denies any other new or acute complaints. [facility] Medical History Hypertension Home Medications ???Medication ???Instructions ???Recorded ???Last Taken ???Type diphenhydramine HCl 25 mg tablet 50 mg PO QHS ALLERGIES 05/11/23 05/25/24 History (Allergy) losartan 50 mg tablet (Cozaar) 50 mg PO QHS BLOOD PRESSURE 05/11/23 05/26/24 History albuterol sulfate 90 mcg/actuation 2 inh inhalation Q4H PRN SHORTNESS 05/13/23 05/26/24 Rx breath activated powder inhaler OF BREATH #1 ea amlodipine 5 mg tablet 5 mg PO QHS BLOOD PRESSURE 05/27/24 05/26/24 History Allergy/AdvReac Type Severity Reaction Status Date / Time poison dennis extract Allergy Intermediate Rash Verified 05/27/24 07:20 Social History number of children: 0 Smoking Status: Current every day smoker tobacco type: pipe ROS ROS Narrative General: Denies fever/chills HENT: Denies headache, nasal congestion and drainage, denies sore throat EYES: Denies changes in vision Resp: Increased cough with sputum production increasing shortness of breath Cardiac: Denies chest pain, some chest tightness with the above GI: Denies abdominal pain, denies changes in bowel, denies nausea/vomiting : Denies changes in urination Extremity: Denies swelling MSK: Denies weakness Neuro: Denies any numbness/tingling Heme: Denies any bleeding or bruising Skin: Denies rashes Psychiatric: No complaints voiced Vital Signs Vital Signs Vital Signs: 05/27/24 07:20 05/27/24 07:20 05/27/24 07:26 Temperature 98.4 F 96.4 F L Temperature Source Temporal Temporal Pulse Rate 102 H 160 H Respiratory Rate 32 H 32 H Respiratory Effort Short of Breath Respiratory Pattern Tachypnea Blood Pressure 140/106 H 140/106 H Blood Pressure Mean 117 117 Pulse Ox 92 92 Oxygen Delivery Method Room Air Room Air Room Air Oxygen Flow Rate (L/min) 05/27/24 07:50 05/27/24 07:50 05/27/24 08:00 Temperature Temperature Source Pulse Rate 93 97 Respiratory Rate 16 24 H Respiratory Effort Respiratory Pattern Blood Pressure 129/78 H Blood Pressure Mean 87 Pulse Ox 92 Oxygen Delivery Method Nasal Cannula Oxygen Flow Rate (L/min) 2 05/27/24 08:26 05/27/24 09:00 05/27/24 09:15 Temperature 98.6 F Temperature Source Oral Pulse Rate 95 85 93 Respiratory Rate 25 H 24 H 26 H Respiratory Effort Respiratory Pattern Blood Pressure 127/72 H 133/75 H 135/81 H Blood Pressure Mean 90 92 97 Pulse Ox 91 Oxygen Delivery Method Nasal Cannula Oxygen Flow Rate (L/min) 2 05/27/24 09:37 Temperature 98.4 F Temperature Source Pulse Rate 93 Respiratory Rate 26 H Respiratory Effort Respiratory Pattern Blood Pressure 135/81 H Blood Pressure Mean 99 Pulse Ox 94 Oxygen Delivery Method Oxygen Flow Rate (L/min) Weight Weight: 94.801 kg Body Mass Index (BMI) 34.8 Physical Exam Narrative General: Alert, oriented, no apparent distress HEENT: Atraumatic, normocephalic Eyes: Anicteric, normal conjunctiva, extraocular movements grossly intact Neck: Supple Respiratory: Diffuse wheezes, increased work of breathing especially with conversation Cardiovascular: Regular rate and rhythm GI: Soft, nontender, nondistended Extremities: Trace lower extremity edema Musc (more content not included)... Normal [facility] L501.4020on 05-27-2024 TROPONIN-I HS 5 pg/mL Normal 3.0-78.0 [facility] Comment on above: Order Comment: 'TROP ' Serial specimen #1, #2 or #3: 1 Result Comment: Michaelle michele Note: New Test Units and Gender Specific Reference Ranges. For more information see Policy Stat Procedure Vershire High Sensitivity Troponin (TNIH) and attachments. Performed By: #### L 500.2500, L501.4020, L100.0100, L503.6620 ####[facility] [address] [place], [address] M100.678on 05-27-2024 M100.678 Pending SARS-CoV-2 (COVID 19) Negative INFLUENZA A Negative INFLUENZA B Negative RSV PCR Negative Normal [facility] Comment on above: Performed By: #### M 100.678 ####[facility] [address] [place], [address] RESPIRATORY PANEL MOLECULARo n 05-27-2024 RP PANEL Normal Reference Range = Not Detected Resp path DNA+RNA Pnl Resp LORRAINE+probe Nucleic acid amplification test method ADENOVIRUS Not Detected INFLUENZA A Not Detected INFLUENZA A (SUBTYPE H1) Not Detected INFLUENZA A (SUBTYPE H3) Not Detected INFLUENZA B Not Detected HUMAN METAPHNEUMO Not Detected PARAINFLUENZA 1 Not Detected PARAINFLUENZA 2 Not Detected PARAINFLUENZA 3 Not Detected PARAINFLUENZA 4 Not Detected RHINOVIRUS Not Detected RSV A Not Detected RSV B Not Detected Normal [facility] Comment on above: Performed By: #### M 100.638 #### [facility] Laboratory [address] [place], [place], [id number] Absolute lymphocyte countOrd ered By: White on 05-13-2023 Lymphocytes Auto (Unsp spec) [#/Vol] 0.84 10*3/uL 0.83-4.51 [facility] Basophil percentageOrdered B y: White on 05-13-2023 Basophils/100 WBC (Bld) 0.3 % 0-1 [facility] Bilirubin [Mass/Vol] 0.50 mg/dL 0.20-1.00 [facility] Comment on above: For patients on eltr ombopag therapy, use of Dimension Vershire TBIL is not recommended. Chloride [Moles/Vol] 99 mmol/L 98-107 [facility] Eosinophils/100 WBC (Bld) 0.0 % 0-5 [facility] Glucose [Mass/Vol] 148 mg/dL 74-106 [facility] Comment on above: Fasting Glucose resu lt greater than or equal to 126 mg/dL suggests DIABETES MELLITUS per A.D.A. criteria. Neutrophils (Bld) [#/Vol] 10.6 10*3/uL 2.0-7.7 [facility] Neutrophils/100 WBC (Bld) 90.1 % 47-70 [facility] Potassium [Moles/Vol] 4.5 mmol/L 3.5-5.1 [facility] Protein [Mass/Vol] 8.6 g/dL 6.4-8.2 [facility] Sodium [Moles/Vol] 135 mmol/L 136-145 [facility] WBC (Bld) [#/Vol] 11.7 10*3/uL 4.4-11.0 [facility] Blood erythrocytes count (nu mber/volume)Ordered By: Linsey Spivey on 05-13-2023 RBC (Bld) [#/Vol] 4.74 10*6/uL 4.6-6.2 [facility] Blood hemoglobin measurement (mass/volume)Ordered By: Linsey Spivey on 05-13-2023 Hemoglobin (Bld) [Mass/Vol] 15.4 g/dL 13.0-16.5 [facility] Blood lymphocytes/100 leukoc ytesOrdered By: Linsey Spivey on 05-13-2023 Lymphocytes/100 WBC (Bld) 7.2 % 19-41 [facility] Blood monocytes/100 leukocyt esOrdered By: Linsey Spivey on 05-13-2023 Monocytes/100 WBC (Bld) 1.5 % 0-10 [facility] Blood platelet mean volumeOr dered By: Linsey Spivey on 05-13-2023 Platelet mean volume (Bld) [Entitic vol] 9.6 fL 6.2-12.0 [facility] Determination of erythrocyte mean corpuscular volume (MCV)Ordered By: Linsey Spivey on 05-13-2023 MCV (RBC) [Entitic vol] 98.9 fL 80-94 [facility] Hematocrit Auto (Bld) [Volum e fraction]Ordered By: Linsey Spivey on 05-13-2023 Hematocrit (Bld) [Volume fraction] 46.9 % 40-54 [facility] Laboratory - Chemistry and C hemistry - challengeOrdered By: Linsey Spivey on 05-13-2023 ALP [Catalytic activity/Vol] 73 U/L 45-117 [facility] ALT [Catalytic activity/Vol] 38 U/L 16-61 [facility] CO2 [Moles/Vol] 28.0 mmol/L 21.0-32.0 [facility] Globulin (S) [Mass/Vol] 4.8 g/dL 2.2-4.2 [facility] Urea nitrogen/Creatinine [Mass ratio] 15.4 mg/mg 10-20 [facility] Laboratory - Hematology and Cell countsOrdered By: Linsey Spivey on 05-13-2023 Erythrocyte distribution width (RBC) [Entitic vol] 48.9 fL 35.1-43.9 [facility] Erythrocyte distribution width (RBC) [Ratio] 13.4 % 11.6-14.6 [facility] Immature granulocytes/100 WBC (Bld) 0.900 % 0.0-0.9 [facility] Comment on above: IG% - Immature Granu locytes (promyelocytes, myelocytes and metamyelocytes) > 1% indicates that a LEFT SHIFT is Present. MCH (RBC) [Entitic mass] 32.5 pg 27.0-32.0 [facility] Nucleated RBC/100 WBC (Bld) [Ratio] 0 % 0-5 [facility] MCHC Auto (RBC) [Mass/Vol]Or dered By: Linsey Spivey on 05-13-2023 MCHC (RBC) [Mass/Vol] 32.8 g/dL 32-36 [facility] No Panel InformationOrdered By: Linsey Spivey on 05-13-2023 Estimated Creatinine Clearance Calc 66.92 ml/min [facility] Estimated GFR (MDRD) Amer 100 mL/min >60 [facility] Comment on above: GFR Calc Estimated GFR (MDRD) Non-Af Amer 82 mL/min >60 [facility] Comment on above: Non- GFR Calc Platelets bldOrdered By: Abraham Spivey on 05-13-2023 Platelets (Bld) [#/Vol] 300 10*3/uL 150-450 [facility] Serum or plasma albumin doni urement (mass/volume)Ordered By: Linsey Spivey on 05-13-2023 Albumin [Mass/Vol] 3.8 g/dL 3.2-5.0 [facility] Serum or plasma albumin/glob ulin mass ratioOrdered By: Linsey Spivey on 05-13-2023 Albumin/Globulin [Mass ratio] 0.8 {ratio} 0.9-2.4 [facility] Serum or plasma calcium doni urement (mass/volume)Ordered By: Linsey Spivey on 05-13-2023 Calcium [Mass/Vol] 9.4 mg/dL 8.5-10.1 [facility] Serum or plasma creatinine m easurement (mass/volume)Ordered By: Linsey Spivey on 05-13-2023 Creatinine [Mass/Vol] 0.97 mg/dL 0.70-1.30 [facility] Comment on above: The validity of the calculated GFR & GFRAA in patients over 70 years has not been determined. Clinical correlation is essential. Serum or plasma urea nitroge n measurement (mass/volume)Ordered By: Linsey Spivey on 05-13-2023 Urea nitrogen [Mass/Vol] 15 mg/dL 7-18 [facility] Thin prep Papanicolaou smear with manual screeningOrdered By: Linsey Spivey on 05-13-2023 Thin prep Papanicolaou smear with manual screening 20 U/L 15-37 [facility] Thin prep Papanicolaou smear with manual screening 8 5-15 [facility] Gram stain for investigation of transfusion reactionOrdered By: Chino Sandoval on 05-12-2023 Microscopic observation Gram stain Nom (Unsp spec) [facility] Serum procalcitonin measurem entOrdered By: Linsey Spivey on 05-12-2023 Procalcitonin [Mass/Vol] 0.10 ng/mL 0.00-0.09 [facility] Comment on above: A procalcitonin (PCT ) level above 2.0 ng/mL on the first day of ICU admission is associated with a high risk for progression to severe sepsis and/or septic shock. A PCT level below 0.5 ng/mL on the first day of ICU admission is associated with a low risk for progression to severe and/or septic shock. Note: Concentrations <0.5 ng/mL do not exclude an infection on account of localized infections (without systemic signs) which can be associated with such low concentrations, or a systemic infection in its initial stages (<6 hours). Furthermore, increased procalcitonin can occur without infection. PCT concentrations between 0.5 and 2.0 ng/mL should be interpreted taking into account the patient's history. It is recommended to retest PCT within 6-24 hours if any concentrations <2 ng/mL are obtained. INR in Blood by Coagulation assayOrdered By: Frederick Cervantes on 05-11-2023 INR Coag (Bld) [Relative time] 1.0 {INR} [facility] Laboratory - CoagulationOrde red By: Frederick Cervantes on 05-11-2023 aPTT Coag (Bld) [Time] 26.3 s 24.1-36.2 [facility] PT Coag (PPP) [Time] 13.2 s 11.7-14.9 [facility] No Panel InformationOrdered By: Frederick Cervantes on 05-11-2023 Troponin I High Sensitivity 4 pg/mL 3.0-78.0 [facility] Comment on above: Please Note: New Valeria t Units and Gender Specific Reference Ranges. For more information see Policy Stat Procedure [place] High Sensitivity Troponin (TNIH) and attachments. D-Dimer Quantitative (PE/DVT) 0.33 FEU/ug/m 0.27-0.49 [facility] Comment on above: NORMAL D-Dimer level (<0.50) indicates no DVT or PE. Vital Signs Date Time Vital Sign Value Performing Clinician Jassii lity 05-13-2023 12:08-0400 SaO2% (BldA) [Mass fraction] 91 % [facility] 05-13-2023 11:17-0400 Heart rate 89 /min [facility] 05-13-2023 11:17-0400 Respiratory rate 20 /min [facility] 05-13-2023 09:05-0400 Inhaled oxygen flow rate 2 L/min [facility] 05-13-2023 09:04-0400 Body temperature 98.3 [degF] [facility] 05-13-2023 09:04-0400 Diastolic blood pressure 72 mm[Hg] [facility] 05-13-2023 09:04-0400 Systolic blood pressure 143 mm[Hg] [facility] 05-11-2023 20:15-0400 Body height 165.1 cm [facility] 05-11-2023 20:15-0400 Body mass index (BMI) [Ratio] 31.1 kg/m2 [facility] 05-11-2023 20:15-0400 Body weight 84.8 kg [facility] Encounters Encounter Date Encounter Type Care Provider Facility Start: 05-27-2024 End: 05-29-2024 Evaluation and management of inpatient Madiha Razo Facility:[facility] Start: 05-27-2024 ambulatory Madiha Razo Facility:[facility] Start: 05-13-2023 Non-patient / Non-visit [facility] Work Phone: Start: 05-12-2023 Non-patient / Non-visit [facility] Start: 05-12-2023 End: 05-13-2023 Evaluation and management of inpatient [facility] Work Phone: Start: 05-11-2023 Non-patient / Non-visit [facility] Work Phone: Procedures Date Procedure Procedure Detail Performing Clinician Start: 05-12-2023 Investigation of tra nsfusion reaction [facility] Start: 05-11-2023 Plain chest X-ray [facility] Plan of Treatment Date Care Activity Detail Author Start: 05-13-2023 Patient discharge [facility] Start: 05-13-2023 [facility] Start: 05-13-2023 Physiotherapy of chest [facility] Start: 05-12-2023 Respiratory Culture Respiratory Culture [facility] Start: 05-12-2023 Admission procedure [facility] Start: 05-11-2023 Following clinical pathway protocol [facility] Start: 05-11-2023 Ambulation without limitation [facility] Start: 05-11-2023 Assessment of risk of venous thromboembolism [facility] Start: 05-11-2023 Insertion of catheter into peripheral vein [facility] Start: 05-11-2023 Oxygen therapy [facility] Start: 05-11-2023 Providing care according to standard [facility] Start: 05-11-2023 Referral to occupational therapist [facility] Start: 05-11-2023 Referral to service [facility] Start: 05-11-2023 [facility] Start: 05-11-2023 Admission procedure [facility] Start: 05-11-2023 Consultation [facility] Start: 05-11-2023 Inhalation therapy procedure [facility] Bacteria identified in Unspecified specimen by Respiratory culture [facility] Patient Education Chronic Lung D isease Infections Discharge Instructions: COPD [facility] Work Phone: Patient referral [facility] Work Phone: Payers Date Payer Category Payer Self-pay 2024 Unknown [id number] Medicare MEDICARE PART A B [id number] Unknown [id number] Unknown [id number] Unknown [id number] [id number] [id number] Unknown [id number] [id number] Social History Date Type Detail Facility Start: 05-12-2023 Tobacco smoking stat [facility] Unknown if ever smoked [facility] Start: 1960 Sex Assigned At Male [facility] Goals Date Patient Goal Desired Activity /State Functional Status Date Assessment Result Facility 05-13-2023 Functional status Ambulates [facility] Work Phone: Mental Status Date Assessment Result Facility 05-13-2023 Cognitive function Voice/Name [facility] Work Phone: Discharge summary note 05-29-2024 Note Date & Type Note Facility 05-29-[address] [facility] [address] [facility] [place] [address] Discharge Summary 05/29/24 1252 MR#: [id number] Acct: [id number] Name: MELCHOR LYLE Rep #: [id number] : 1960 63 From: Madiha Razo MD PCP: [facility] Status:DIS IN Location: [facility] [id number] Providers Date of Admission: 05/27/24 Date of Discharge: 05/29/24 Primary Care Physician: [place] [facility] Reason For Visit: COPD EXACERBATION Diagnosis Discharge Diagnosis (1) Acute exacerbation of chronic obstructive pulmonary disease: Status: Resolved Code(s): J44.1 - Chronic obstructive pulmonary disease with (acute) exacerbation Plan # Acute hypoxia secondary to acute exacerbation of chronic COPD and Pseudomonas pneumonia #Hypertension # Seasonal allergies #Tobacco use Medications at Discharge Home Medications diphenhydramine HCl 25 mg tablet (Allergy) 50 mg PO QHS ALLERGIES 05/11/23 losartan 50 mg tablet (Cozaar) 50 mg PO QHS BLOOD PRESSURE 05/11/23 albuterol sulfate 90 mcg/actuation breath activated powder inhaler 2 inh inhalation Q4H PRN SHORTNESS OF BREATH #1 ea 05/13/23 amlodipine 5 mg tablet 5 mg PO QHS BLOOD PRESSURE 05/27/24 levofloxacin 750 mg tablet 750 mg PO DAILY 7 days #7 tabs 05/29/24 prednisone 20 mg tablet See Taper PO BREAKFAST #32 tabs 05/29/24 Hospital Course Summary of Care Provided Minutes Spent on Discharge: 33 Hospital Course: MELCHOR LYLE, is a 63 M with seasonal allergies and hypertension as well as suspected COPD and tobacco use who presented to [facility] ED 05/27/2024 with increasing shortness of breath over the past several days and was noted to have an O2 sat of 87% on room air. Chest x-ray did not show any acute infiltrate and symptoms were consistent with COPD exacerbation. Patient started on IV steroids, nebs, azithromycin and hospitalist contacted for admission. Patient improved however did have Pseudomonas growing in his sputum, antibiotics switched to Levaquin and patient further improved. Still had some congestion and wheezing but was able to ambulate with 2 L of O2 with improvement in his dyspnea. Discussed discharge and disease course and patient comfortable with discharging today. Overall breathing has improved, congestion present but discussed that this will take time to resolve. No new or acute complaints. Discharge instructions as followed: -You will be discharged on Levaquin, an antibiotic, which you will take for 7 more days -You will be discharged on a prednisone taper: -60 mg daily x3 days -50mg daily x3 days -40mg daily x3 days -30mg daily x3 days -20mg daily x3 days -10mg daily x3 days -You will be discharged on 2 L of home O2 to wear consistently, this may be able to be weaned off or discontinued eventually but you will need to follow-up closely with your outpatient providers for this determination. Is important that you do not smoke while using your oxygen -For your continued congestion please obtain Mucinex [id number] to help with your congestion symptoms -Continue to use your albuterol inhaler as needed, we discussed nebulizers and per discussion you will follow[facility] with [facility] for this -Please call your primary care provider's office upon discharge to schedule a hospital follow up within 1 week. -For any concerning signs or symptoms please call 911 or proceed to the nearest emergency department Physical Exam Narrative General: Alert, oriented, no apparent distress HEENT: Atraumatic, normocephalic Eyes: Anicteric, normal conjunctiva, extraocular movements grossly intact Neck: Supple Respiratory: Improving wheezes, no increased work of breathing Cardiovascular: Regular rate and rhythm GI: Soft, nontender, nondistended Extremities: No significant lower extremity edema Musculoskeletal: Moving all extremities Neuro: No overt focal neurological deficits Skin: No rashes appreciated Psych: Cooperative Weight / BMI Weight Weight: 89.4 kg Body Mass Index (BMI) 32.8 ABG / Lab / Microbiology Data 05/29/24 06:07 05/29/24 06:07 Laboratory: Laboratory Results - last 24 hr 05/29/24 06:07: WBC 16.5 H, RBC 4.78, Hgb 15.2, Hct 46.5, MCV 97.3 H, MCH 31.8, MCHC 32.7, RDW Std Deviation 46.9 H, RDW Coeff of Monica 13.0, Plt Count 377, MPV 9.4, Immature Gran % (Auto) 1.100 H, N eut % (Auto) 89.1 H, Lymph % (Auto) 6.7 L, Lyman % (Auto) 3.0, Eos % (Auto) 0.0, Baso % (Auto) 0.1, A bsolute Neuts (auto) 14.7 H, Absolute Lymphs (auto) 1.10, Nucleated RBC % 0, Sodium 135 L, Potassium 4.4, Chloride 102, Carbon Dioxide 26.0, Anion Gap 7, BUN 17, Creatinine 1.05, Estim Creat Clear Calc 72.08, Est GFR (MDRD) Af Amer 91, Est GFR (MDRD) Non-Af 75, BUN/Creatinine Ratio 16.2, Glucose 149 H , Calcium 9.7 Microbiology: Microbiology 05/27/24 11:00 Sputum, Expectorated/Coughed Gram Stain - Final 05/27/24 1 (more content not included)... [facility] Progress note 05-13-2023 Note Date & Type Note Facility 05-13-2023 Progress note Note Date/Time May 13, 2023 6:22am [facility] Medical Records Department [address] [place] [address] Progress Note - Hospitalist 05/13/23620 MR#: [id number] Acct: [id number] Name: MELCHOR LYLE Rep #:[id number] : 1960 62 From: Linsey Spivey MD [place] [facility] Status:ADM IN Location: [place] [id number] Reason for Visit Reason for Visit: Diagnoses Chronic obstructive pulmonary disease with (acute) exacerbation (05/12/23) Hypoxemia (05/12/23) Subjective Subjective No acute events overnight per self and per nursing report. Noted feeling remarkably improved with greater ease of breathing and resolution of previous wheezing. He states he does feel ready for discharge to home. Oxygenation trial this morning with patient maintained appropriately on room air only in thelow 90s saturations. Patient assures he can have appropriate follow-up and takehis medications with [facility] evaluation hopefully within the next 3 to 5 daysbut did request that [place] be notified to facilitate further earlier follow-up. Patient denies fevers, chills, nausea, emesis, abdominal pain, chest pain. Objective Data Objective Data Vital Signs: Vital Signs Temp Pulse Resp BP Pulse Ox O2 Del Method O2 Flow Rate 98.1 F 73 20 H 140/83 H 96 Nasal Cannula 3 05/12/23 23:00 05/12/23 23:46 05/12/23 23:46 05/12/23 23:00 05/12/23 23:00 05/12/23 23:00 05/12/23 23:00 Oxygen Flow Rate (L/min) 3 Oxygen Delivery Method Nasal Cannula Weight: 186 lb 15.232 oz Body Mass Index (BMI) 31.1 Intake & Output: Intake and Output for Last 24 Hours 05/11/23 05/12/23 05/13/23 23:59 23:59 23:59 Intake Total 400 / 400 1805 / 1805 Balance 400 / 400 1805 / 1805 Lab / Micro Data 05/13/23 07:05 05/13/23 07:05 Labs: Laboratory Results - last 24 hr 05/12/23 07:15: Procalcitonin 0.10 H Micro: Microbiology 05/12/23 05:20 Sputum, Expectorated/Coughed Gram Stain - Final 05/11/23 22:50 Mucosa - Nasopharyngeal Respiratory Panel (PCR) - Final 05/11/23 13:50 Nasal Secretion SARS-CoV-2 & FLU Antigen (Rapid) - Final Physical Exam Narrative Physical Examination: General: Awake, alert, oriented x 3 and cooperative, seated upright MedSur bed,significantly improved, moving air with much greater ease. Skin: Normal color, normal turgor, no icterus, no cyanosis. HEENT: AT/NC, EOMI, PERRLA, mildly dry MM. Lungs: Still diminished but significantly improved, wheezing has resolved, appears comfortable, no obvious rales or rhonchi. Heart: Regular rate and rhythm; no gallop, rub audible. Abdomen: Soft, obese, NTTP, ND, normal BS. Extremities: No cyanosis, clubbing, or edema. Neurological: Patient awake, alert, oriented as noted, cognitive function intact; pupils equally reactive to light and accommodation, cranial nerves grossly normal, moving all 4 extremities, no focal deficits, strength improving,mildly to moderately global decreased. Psychiatric: Affect appears reactive, notes ready for discharge, no acute evidence of depressive or anxiety feelings. Assessment & Plan Assessment/Plan (1) Acute exacerbation of chronic obstructive pulmonary disease: (2) Hypoxia: PLAN: Plan The patient is a 62 y/o M w/ PMHx: HTN, Hx Cigarette Tobacco use/Pipe Tobacco use who presents to the [facility] ED on 05/11/23 with dyspnea and wheezing not improving over approximate 24 hours prompting eventual ED evaluation. #1. Acute Hypoxia secondary to Acute on Suspected Chronic COPD with heavy tobacco use history, no formal diagnosis: Admitted to medical surgical floor, maintain on oxygen with wean as tolerated to room air, continue ATC duonebs, PRNalbuterol, IV methylprednisolone, HOB, IS parameters, full respiratory panel negative, rapid influenza and SARS COVID antigens negative, sputum Cx at dischargehowever did note preliminary with 1+ gram-negative rods/2+ gram-positive cocci with final culture still pending as noted, procalcitonin 0.10, only mildly elevated, upon admission patient was initiated on azithromycin and Rocephin which had been continued with oral transition at discharge. Examination trial was performed and patient was appropriately weaned to room air and maintained with ambulatory trial. Patient given sputum culture as noted although pending finalization discharged to home on completion therapy of cefdinir as well as azithromycin, prednisone taper, albuterol rescue inhaler and scheduled inhaler with requested follow-up with primary care physician for formal PFTs once acute phase resolved. #2. Hypertension: Continue home regimen including Norvasc, 05/12/23 restarted patient home losartan regimen additionally, PRN hydralazine. Will continue Norvasc at discharge. #3. Cardiomegaly, admitting hospitalist noted concern for HFpEF: Cardiac enzymes remained unremarkable, EKG with no specific concerns upon presentation, echocardiogram with noted LVEF 65%, mild 1+ at MARY, mildly dilated aortic root. Patient was also maintained on a baby aspirin which was also continued upon discharge. #4. Debility, adult failure to thrive: Patient reportedly living with his sister and qozigvr-cl-byt, notable poor hygiene in the ED with concern for bedbugs, case management/social work involved for discharge planning, PT and OT assessments also. #5. Tobacco Abuse: Encouraged cessation, inpatient consultation per RT, NR if desired. #6. DVT prophylaxis: Lovenox. #7. CODE STATUS: Full code. Charges/Coding Visit Charges Inpatient E&M: 09317 Subs Hosp L2 05/13/23 1217 <Electronically signed by Linsey Spivey MD> Cosigner Signature (if applicable): CC: ~ Signed [facility] Work Phone: Progress note 05-12-2023 Note Date & Type Note Facility 05-12-2023 Progress note Note Date/Time May 12, 2023 7:04am [facility] Medical Records Department [address] [place] [address] Progress Note - Hospitalist 05/12/23 0704 MR#: [id number] Acct: [id number] Name: MELCHOR LYLE Rep #:[id number] : 1960 62 From: Linsey Spivey MD PCP: [place] Status:ADM IN Location: [place] [address] Reason for Visit Reason for Visit: Diagnoses Hypoxemia (05/11/23) Subjective Subjective Patient with no acute events overnight per self and per nursing report. Patientnotes feeling improved since initial ED arrival but still having significant coughing and dyspnea with exertion as well as ongoing wheezing. Discussed with patient transition to IV Solu-Medrol at this time with continued aerosols and antibiotic therapy. Patient denies fevers, chills, nausea, emesis, abdominal pain, chest pain. Objective Data Objective Data Vital Signs: Vital Signs Temp Pulse Resp BP Pulse Ox O2 Del Method O2 Flow Rate 97.8 F 83 18 154/90 H 93 Nasal Cannula 4 05/12/23 05:24 05/12/23 05:24 05/12/23 05:24 05/12/23 05:24 05/12/23 05:27 05/12/23 05:27 05/12/23 05:27 Oxygen Flow Rate (L/min) 4 Oxygen Delivery Method Nasal Cannula Weight: 186 lb 15.232 oz Body Mass Index (BMI) 31.1 Intake & Output: Intake and Output for Last 24 Hours 05/10/23 05/11/23 05/12/23 23:59 23:59 23:59 Intake Total 400 / 400 400 / 400 Balance 400 / 400 400 / 400 Lab / Micro Data 05/11/23 13:45 05/11/23 13:45 Labs: Laboratory Results - last 24 hr 05/11/23 13:45: WBC 8.1, RBC 5.08, Hgb 16.2, Hct 50.5, MCV 99.4 H, MCH 31.9, MCHC 32.1, RDW Std Deviation 49.3 H, RDW Coeff of Monica 13.4, Plt Count 308, MPV 9.6, Immature Gran % (Auto) 0.400, Neut % (Auto) 65.2, Lymph % (Auto) 17.7 L, Lyman % (Auto) 8.6, Eos % (Auto) 7.0 H, Baso % (Auto) 1.1 H, Absolute Neuts (auto) 5.3, Absolute Lymphs (auto) 1.43, Nucleated RBC % 0, PT 13.2, INR 1.0, APTT 26.3, D-Dimer Quant (PE/DVT) 0.33, Sodium 137, Potassium 3.9, Chloride 102,Carbon Dioxide 30.0, Anion Gap 5, BUN 9, Creatinine 1.03, Estim Creat Clear Calc63.03, Est GFR (MDRD) Af Amer 93, Est GFR (MDRD) Non-Af 77, BUN/Creatinine Ratio8.7 L, Glucose 104, Calcium 9.7, Troponin I High Sens 4 05/11/23 15:20: Troponin I High Sens 4 Micro: Microbiology 05/11/23 22:50 Mucosa - Nasopharyngeal Respiratory Panel (PCR) - Final 05/11/23 13:50 Nasal Secretion SARS-CoV-2 & FLU Antigen (Rapid) - Final Radiography Diagnostic Testing: Radiology Impression Chest X-Ray 05/11/23 13:52 IMPRESSION: Borderline cardiomegaly, aortic tortuosity with calcification and mild hyperinflation with minimal interstitial prominence. No focal consolidation or acute finding. Electronically Signed: Ean Trinh MD at 14:08 EDT , Physical Exam Narrative Physical Examination: General: Awake, alert, oriented x 3 and cooperative, seated upright in OR bed, fatigued but notes feeling improved since initial arrival. Skin: Normal color, normal turgor, no icterus, no cyanosis. HEENT: AT/NC, EOMI, PERRLA, mildly dry MM. Lungs: Diminished, greater bases, significant diffuse inspiratory and expiratorywheezes, no obvious rales or rhonchi. Heart: Regular rate and rhythm; no gallop, rub audible. Abdomen: Soft, obese, NTTP, ND, normal BS. Extremities: No cyanosis, clubbing, or edema. Neurological: Patient awake, alert, oriented as noted, cognitive function intact; pupils equally reactive to light and accommodation, cranial nerves grossly normal, moving all 4 extremities, no focal deficits, strength improving,moderately global decrease secondary to acute presentation. Psychiatric: Affect appears fatigued otherwise improved, no acute evidence of depressive or anxiety feelings. Assessment & Plan Assessment/Plan (1) Acute exacerbation of chronic obstructive pulmonary disease: (2) Hypoxia: PLAN: Plan The patient is a 62 y/o M w/ PMHx: HTN, Hx Cigarette Tobacco use/Pipe Tobacco use who presents to the [facility] ED on 05/11/23 with dyspnea and wheezing not improvingover approximate 24 hours prompting eventual ED evaluation. #1. Acute Hypoxia secondary to Acute on Suspected Chronic COPD with heavy tobacco use history, no formal diagnosis: Admitted to medical surgical floor, maintain on oxygen with wean as tolerated to room air, continue ATC duonebs, PRNalbuterol, IV methylprednisolone, HOB, IS parameters, full respiratory panel negative, rapid influenza and SARS COVID antigens negative, pending sputum Cx, procalcitonin 0.10, only mildly elevated, will continue azithromycin. We will perform oxygenation trial prior to discharge to home for supplemental needs. #2. Hypertension: Continue home regimen including Norvasc, will restart patienthome losartan regimen additionally, PRN hydralazine. #3. Cardiomegaly, admitting hospitalist noted concern for HFpEF: Cardiac enzymes remained unremarkable, EKG with no specific concerns upon presentation, echocardiogram has been ordered and is pending. Pending these findings certainly can arrange follow-up for this patient. #4. Debility, adult failure to thrive: Patient reportedly living with his sister and [id number], notable poor hygiene in the ED with concern for bedbugs, case management/social work involved for discharge planning, PT and OT assessments also. #5. Tobacco Abuse: Encouraged cessation, inpatient consultation per RT, NR if desired. #6. DVT prophylaxis: Lovenox. #7. CODE STATUS: Full code. Charges/Coding Visit Charges Inpatient E&M: 92852 Subs Hosp L2 05/12/23 1549 <Electronically signed by Linsey Spivey MD> Adán Signature (if applicable): CC: ~ Signed [facility] Work Phone: Discharge summary 05-12-2023 Note Date & Type Note Facility 05-12-2023 Discharge summary Note Date/Time May 11, 2023 1:42pm [facility] Medical Records Department [address] [place] [address] Emergency Department Summary 05/11/23 MR#: [id number] Acct: [id number] Name: MELCHOR LYLE Rep #:[id number] : 1960 62 From: Frederick Lucia PCP: [facility] Status:ADM LYLA Location: [place] [address] HPI History of Present Illness Chief Complaint: Shortness of Breath Informant: patient Onset/Context/Timing Onset: Weeks (2) Context: gradual Timing: Continuous Quality: Positive for Wheezing Worsened by: Lying flat Relieved by: Albuterol Associated Symptoms cough, clear sputum and white sputum; Negative for rhinorrhea, post nasal drip, ear pain, fever, sore throat, chills, sweats, yellow sputum or green sputum Chest Pain: Positive for Tightness and - (Congested) Narrative Narrative: Patient presents with shortness of breath that has been getting worse over the past 2 weeks. Patient states it is gradually getting worse. Patient has noticed some wheezing in his chest. Patient states his breathing is worse with lying flat. Patient states it is better with albuterol aerosols. Patient states he is coughing up some clear and occasional white sputum. Patient deniesany fevers or chills. Patient states his chest feels tight and congested. Patient denies any sore throat, rhinorrhea, or ear pain. PE Risk Factors: Negative for Cancer, OCP + Smoking + > 35, Prior DVT or PE, Recent immobilization, Recent surgery or Recent travel [facility] Medical History Hypertension Home Medications diphenhydramine HCl 25 mg tablet (Allergy) 50 mg PO QHS 05/11/23 [History Last Taken Unknown] losartan 50 mg tablet (Cozaar) 50 mg PO DAILY 05/11/23 [History Last Taken Unknown] Allergy/AdvReac Type Severity Reaction Status Date / Time poison dennis extract Allergy Intermediate Rash Verified 05/11/23 14:25 Social History (Updated 05/11/23 @ 20:21 by Julia Jose) number of children: 0 Smoking Status: Current every day smoker tobacco type: pipe ROS ROS ED Constitutional Constitutional ED: Denies chills or fever(s) Eyes Eyes: Denies blurry vision or change in vision ENT ENT ED: Denies rhinorrhea or sore throat Cardiovascular Cardiovascular: Reports chest pain; Denies palpitations Respiratory/Chest Respiratory/Chest: Reports cough and dyspnea Gastrointestinal Gastrointestinal: Denies nausea or vomiting Genitourinary Genitourinary ED: Denies dysuria or hematuria Musculoskeletal Musculoskeletal: Denies back pain or neck pain Integumentary Denies abscess or rash Neurologic Neurologic: Denies headache(s) or weakness Allergic/Immunologic Allergic/Immunologic ED: Denies mouth swelling or urticaria EXAM Physical Exam Const Vital Signs: 05/11/23 12:41 05/11/23 12:44 05/11/23 14:08 Temperature 97.8 F Temperature Source Temporal Pulse Rate 85 88 Respiratory Rate 34 H 20 H Respiratory Effort Short of Breath Respiratory Depth Shallow Respiratory Pattern Tachypnea Normal Blood Pressure 161/100 H Blood Pressure Mean 120 Pulse Ox 97 Oxygen Delivery Method Nasal Cannula Nasal Cannula Oxygen Flow Rate (L/min) 3 3 05/11/23 14:23 05/11/23 16:24 05/11/23 17:14 Temperature 97.8 F Temperature Source Temporal Pulse Rate 90 83 84 Respiratory Rate 23 H 26 H Respiratory Effort Respiratory Depth Respiratory Pattern Blood Pressure 159/91 H 122/108 H 143/85 H Blood Pressure Mean 113 112 104 Pulse Ox 96 96 91 Oxygen Delivery Method Nasal Cannula Nasal Cannula Oxygen Flow Rate (L/min) 4 4 05/11/23 16:43 Temperature 97.8 F Temperature Source Temporal Pulse Rate 81 Respiratory Rate 24 H Respiratory Effort Respiratory Depth Respiratory Pattern Blood Pressure 156/94 H Blood Pressure Mean 114 Pulse Ox 95 Oxygen Delivery Method Room Air Oxygen Flow Rate (L/min) 4 Positive well nourished and well developed General Appearance ED: well developed and NAD HEENT Reports moist mucous membranes Neck supple and no JVD Resp normal respiratory effort Auscultation: wheezes expiratory wheezes and throughout Cardio regular rate and regular rhythm GI normal to inspection, nondistended, normoactive bowel sounds and non-tender Palpation: soft Extremity normal to inspection General Extremety ED: Negative for edema or tenderness General Extremity: Negative for edema Neuro oriented x3, CN's II-XII intact bilaterally and no sensory deficits noted Sensorium / Orientation: alert Motor Exam: strength 5/5 throughout Psych mental status grossly normal Skin no rashes or lesions noted MDM MDM MDM Narrative Medical decision making narrative: Differential diagnosis includes COPD exacerbation, asthma, cardiac dysrhythmia, cardiac ischemia, pneumonia, pneumothorax, pulmonary embolism, and anxiety. EKGwill be obtained to assess for cardiac dysrhythmia and cardiac ischemia. Chest x-ray will be obtained to assess for pneumonia and pneumothorax. CBC will be obtained to assess for leukocytosis and anemia. Basic metabolic profile will beobtained to assess for electrolyte abnormality and renal function. High-sensitivity troponin will be obtained to assess for cardiac ischemia. D-dimer will be obtained to assess for pulmonary embolism. Lab Data Attestation: I reviewed the patient's lab results. Lab results narrative: CBC was reviewed and was within normal limits. Basic metabolic profile was reviewed and was within normal limits. PT with INR and PTT were reviewed and were within normal limits. High-sensitivity troponin was reviewed and was normal. 2-hour repeat high-sensitivity troponin was reviewed and was unchanged. COVID-19 rapid antigen was reviewed and was negative. Influenza A and influenzaB antigens were reviewed and were negative. Labs: Laboratory Results - last 24 hr 05/11/23 05/11/23 13:45 15:20 WBC 8.1 RBC 5.08 Hgb 16.2 Hct 50.5 MCV 99.4 H MCH 31.9 MCHC 32.1 RDW Std Deviation 49.3 H RDW Coeff of Monica 13.4 Plt Count 308 MPV 9.6 Immature Gran % (Auto) 0.400 Neut % (Auto) 65.2 Lymph % (Auto) 17.7 L Lyman % (Auto) 8.6 Eos % (Auto) 7.0 H Baso % (Auto) 1.1 H Absolute Neuts (auto) 5.3 Absolute Lymphs (auto) 1.43 Nucleated RBC % 0 PT 13.2 INR 1.0 APTT 26.3 D-Dimer Quant (PE/DVT) 0.33 Sodium 137 Potassium 3.9 Chloride 102 Carbon Dioxide 30.0 Anion Gap 5 BUN 9 Creatinine 1.03 Estim Creat Clear Calc 63.03 Est GFR (MDRD) Af Amer 93 Est GFR (MDRD) Non-Af 77 BUN/Creatinine Ratio 8.7 L Glucose 104 Calcium 9.7 Troponin I High Sens 4 4 Radiography Chest X-Ray - ED: 2 View, Read by ED Physician, Read by Radiologist and No AcuteDisease Diagnostic Testing: Clinical Impression(s) from Imaging Studies Chest X-Ray 05/11/23 13:52 IMPRESSION: Borderline cardiomegaly, aortic tortuosity with calcification and mild hyperinflation with minimal interstitial prominence. No focal consolidation or acute finding. Electronically Signed: Ean Trinh MD at 14:08 EDT , PA and lateral chest x-ray was obtained. There are 2 views. On my independent interpretation, lung oliver show mild hyperinflation. There is Cardiomegaly. Bony thorax is normal. There is no acute process noted. Radiologist also interpreted the x-ray and agrees. EKG Initial EKG: Attestation: I personally reviewed and interpreted this EKG as follows: Interpretation: Sinus Rhythm (82) and No Acute Injury Pattern Comments: EKG was obtained. On my independent interpretation, it showed anormal sinus rhythm with a rate of 82. HI interval, QRS interval, and QTc intervals were all normal. [place] was normal. There are no acute ST or T wave changes. Management Discussion w/another healthcare provider: Hospitalist Treatment and Re-Evaluation :: Patient was given a DuoNeb aerosol here. Patient was feeling better after this. Patient was given a dose of Solu-Medrol here. Because the patient was hypoxic at 85% on room air initially, I recommended admission to the hospital. Patient is agreeable with this. Case was discussed with the hospitalist. He will admitthe patient to his service. Patient understands and is agreeable with the plan. All questions were answered. Discharge Plan Dx/Rx/DC Orders Clinical Impression: Hypoxia, Acute exacerbation of chronic obstructive pulmonary disease Disposition Disposition: Acute Care Hospital [facility] Discharge Date/Time: 05/11/23 19:34 What to do if you have Problems For any increased pain, shortness of breath, bleeding, nausea or vomiting, chestpain, or any unexpected problems, contact your Primary Care Provider. Call [facility] ([phone]) or report to the closest Emergency Room. Call 911 if necessary. 05/12/23 0050 <Electronically signed by Frederick Cervantes DO> Cosigner Signature (if applicable): CC: [facility] ~ Signed [facility] Work Phone: History and physical note 05-12-2023 Note Date & Type Note Facility 05-12-2023 History and physi rick note Note Date/Time May 11, 2023 4:58pm [facility] Medical Records Department [address] [place] [address] H&P Exam - Hospitalist 05/11/23 1657 MR#: [id number] Acct: [id number] Name: MELCHOR LYLE Rep #:[id number] : 1960 62 From: Chino castano DO PCP: [facility] Status:ADM LYLA Location: [place] [id number] HPI - General General Date of Admission: 05/11/23 Date of Service: 05/11/23 Chief Complaint: Shortness of breath, wheezing HPI Narrative MELCHOR LYLE is a 62 M with history of tobacco use and hypertension who presented to [facility] ED on 05/11/2023 with worsening shortness of breathand wheezing. Patient seen at bedside, no family present. Patient sitting comfortably in bed, satting well on 3 L nasal cannula and no increased work of breathing noted. Patient states that he feels significantly better now than when he got to the ED earlier today. States the breathing treatment was significantly helpful for him. Patient has no known history of COPD. He has a history of smoking cigarettes, unclear pack-year history. He is currently a pipe smoker, but only smokes about 2-3 times per week. Last smoked about 2 weeks ago. Has never had an episode of significant shortness of breath and wheezing like this before. He does occasionally have wheezing and uses his sisters albuterol inhaler with fairly good relief of his symptoms. His shortness of breath and wheezing started yesterday and got significantly worse this morning. No known sick contacts. Patient otherwise denies any chest pain. Denies any fevers or chills. Has not coughed up any sputum. No other acute concerns. Labs in the ED were notable for normal WBC count, benign CBC, normal BMP. Chestx-ray showed borderline cardiomegaly, aortic tortuosity with calcification and mild hyperinflation with minimal interstitial prominence, no focal consolidationor acute findings. [facility] Medical History Hypertension Home Medications diphenhydramine HCl 25 mg tablet (Allergy) 50 mg PO QHS 05/11/23 [History Last Taken Unknown] losartan 50 mg tablet (Cozaar) 50 mg PO DAILY 05/11/23 [History Last Taken Unknown] Allergy/AdvReac Type Severity Reaction Status Date / Time poison dennis extract Allergy Intermediate Rash Verified 05/11/23 14:25 Social History (Updated 05/11/23 @ 20:21 by Julia Jose) number of children: 0 Smoking Status: Current every day smoker tobacco type: pipe ROS Constitutional Constitutional: Reports fatigue and weakness; Denies change in weight, chills orfever(s) Cardiovascular Cardiovascular: Reports dyspnea on exertion; Denies chest pain, lightheadedness or orthopnea Respiratory/Chest Respiratory/Chest: Reports cough; Denies excessive phlegm production or productive cough Gastrointestinal Gastrointestinal: Denies abdominal pain Vital Signs Vital Signs Vital Signs: 05/11/23 12:41 05/11/23 12:44 05/11/23 14:08 Temperature 97.8 F Temperature Source Temporal Pulse Rate 85 88 Respiratory Rate 34 H 20 H Respiratory Effort Short of Breath Respiratory Depth Shallow Respiratory Pattern Tachypnea Normal Blood Pressure 161/100 H Blood Pressure Mean 120 Pulse Ox 97 Oxygen Delivery Method Nasal Cannula Nasal Cannula Oxygen Flow Rate (L/min) 3 3 05/11/23 14:23 05/11/23 16:24 Temperature Temperature Source Pulse Rate 90 83 Respiratory Rate 23 H Respiratory Effort Respiratory Depth Respiratory Pattern Blood Pressure 159/91 H 122/108 H Blood Pressure Mean 113 112 Pulse Ox 96 96 Oxygen Delivery Method Nasal Cannula Oxygen Flow Rate (L/min) 4 Weight Weight: 87.543 kg Body Mass Index (BMI) 32.1 Physical Exam Const alert and oriented x3 Constitutional Narrative: Pleasant male, sitting comfortably in bed, satting well on 3 L nasal cannula, conversing normally, no increased work of breathing noted. Unkempt with poor hygiene. General Appearance: cooperative HEENT normocephalic, head/scalp atraumatic, hearing grossly normal bilaterally, nasal mucous membranes and turbinates normal and moist oral mucous membranes Eyes PERRL, EOMs intact bilaterally and conjunctivae normal Neck full ROM, no lymphadenopathy and supple Lymph Lymphatic: no lymphadenopathy noted Chest inspection of chest normal Resp normal respiratory effort Resp Narrative: Moderate wheezing noted bilaterally in upper airways. Good air movement throughout. Cardio regular rate, regular rhythm, no murmurs and peripheral pulses 2+ throughout GI normal to inspection, nondistended, normoactive bowel sounds, soft to palpation,non-tender and non-distended Back/Spine normal ROM Extremity normal to inspection, full ROM and no pedal edema Skin no rashes or lesions noted Psych mental status grossly normal Results Lab / Micro Data 05/11/23 13:45 05/11/23 13:45 Labs: Laboratory Results - last 24 hr 05/11/23 13:45: WBC 8.1, RBC 5.08, Hgb 16.2, Hct 50.5, MCV 99.4 H, MCH 31.9, MCHC 32.1, RDW Std Deviation 49.3 H, RDW Coeff of Monica 13.4, Plt Count 308, MPV 9.6, Immature Gran % (Auto) 0.400, Neut % (Auto) 65.2, Lymph % (Auto) 17.7 L, Lyman % (Auto) 8.6, Eos % (Auto) 7.0 H, Baso % (Auto) 1.1 H, Absolute Neuts (auto) 5.3, Absolute Lymphs (auto) 1.43, Nucleated RBC % 0, PT 13.2, INR 1.0, APTT 26.3, D-Dimer Quant (PE/DVT) 0.33, Sodium 137, Potassium 3.9, Chloride 102,Carbon Dioxide 30.0, Anion Gap 5, BUN 9, Creatinine 1.03, Estim Creat Clear Calc63.03, Est GFR (MDRD) Af Amer 93, Est GFR (MDRD) Non-Af 77, BUN/Creatinine Ratio8.7 L, Glucose 104, Calcium 9.7, Troponin I High Sens 4 05/11/23 15:20: Troponin I High Sens 4 Micro: Microbiology 05/11/23 13:50 Nasal Secretion SARS-CoV-2 & FLU Antigen (Rapid) - Final Radiology Impression Chest X-Ray 05/11/23 13:52 IMPRESSION: Borderline cardiomegaly, aortic tortuosity with calcification and mild hyperinflation with minimal interstitial prominence. No focal consolidation or acute finding. Electronically Signed: Ean Trinh MD at 14:08 EDT , Assessment & Plan Assessment/Plan (1) Hypoxia: PLAN: Plan Patient is a 62 M with history of tobacco use and hypertension who presented to [facility] ED on 05/11/2023 with worsening shortness of breath and wheezing. 1. Acute hypoxic respiratory failure, dyspnea and wheezing, concern for underlying COPD No formal diagnosis of COPD. History of smoking cigarettes, has been smoking pipes a few times per week for the last few years. Suspect hypoxia along with significant dyspnea and wheezing are secondary to either a viral or bacterial URI, in setting of mild underlying COPD. Does not have any home inhalers, but uses his sisters albuterol inhaler as needed with improvement in his symptoms. Chest x-ray on admission as noted above. COVID and rapid flu negative. Given 1treatment of DuoNeb's and 1 dose of methylprednisolone in the ED with good improvement in his symptoms. ? Treat as COPD exacerbation with 5-day course of steroids and antibiotics. Scheduled DuoNebs every 4 hours for now, can reduce to as needed if patient shows good improvement in symptoms. Sputum culture, respiratory panel pending. Wean supplemental O2 with goal oxygen saturation greater than 90%. Will likely need room air walk test prior to discharge to determine need for home oxygen. Recommend patient have outpatient PFTs done once improved for formal assessment for underlying lung disease. 2. Hypertension ? On home losartan. Appeared mildly hypovolemic on admission, will hold losartan for now. Repeat BMP in the morning, can restart losartan as needed. However, has been mildly hypertensive since admission; will start amlodipine 5 mg daily. 3. Cardiomegaly, concern for HFpEF ? Cardiomegaly noted on chest x-ray on admission. No history of hypertension, no known history of cardiac disease. Echo ordered for further evaluation. 4. Debility ? Patient reportedly lives with his sister and [id number]. His sister has severe COPD and wears chronic oxygen at home. [id number] does a lot of tasks around the home for patient. PT/OT/case management consulted for further evaluation of patient's functional status and discharge planning. 5. Poor hygiene ? Patient noted to have bedbugs on exam in the ED. Patient admitted that he is aware that he has bedbugs. Maintain contact precautions. DVT prophylaxis: Lovenox CODE STATUS: Full code, verified Expected disposition: Home, 2 to 3 days Total clinical time spent by myself addressing the patient's medical issues, reviewing all the data, and collaborating with patient's care team: 55 minutes. Charges/Coding Visit Charges Inpatient E&M: 61586 Init Hosp L2 05/11/239 <Electronically signed by Chino Sandoval DO> Cosigner Signature (if applicable): CC: Dr. Chino Sandoval DO; [facility]~ Signed [facility] Work Phone: Discharge summary Note Date & Type Note Facility Discharge summary Note Date/Time May 13, 2023 12:12pm [facility] Medical Records Department [address] [place] [address] Instructions for Home/Discharge Instructions 05/13/23 1211 MR#: [id number] Acct: [id number] Name: MELCHOR LYLE Rep #:[id number] : 1960 62 From: Linsey Spivey MD PCP: [place] Status:ADM IN Discharge Instructions Diet Discharge Diet: Low fat / Low cholesterol Activity Discharge Activity: - (Limit yourself to mild activity until complete steroid taper/antibiotic therapy or cleared per primary care. Please avoid prolonged heat exposure and remain in air conditioned environment.) May resume sexual activity in: 10-14 days Dressing / Incision Call your doctor if you observe: Fever of 101 or Higher, Numbness or Tingling, Shortness of breath, Fainting spells, Chest pain, Increased palpitations (irregular heartbeat), Calf discomfort and Uncontrolled pain Follow Up Care Test Results: Test results from this visit will be discussed in further detail at your follow-up appointment, if applicable. Discharge Plan Admission Admit Date/Time: 05/12/23 10:06 Primary Reason for Your Visit: Acute Hypoxia secondary to Acute on Suspected Chronic COPD Attending Provider: Linsey Spivey Primary Care Provider: [place] [place] Consulting Providers: Chino Sandoval Instructions Patient Instructions: Chronic Lung Disease Infections, Discharge Instructions: COPD Additional Instructions / Restrictions: DURING THE ADMISSION: You were treated for COPD exacerbation. Please continue the inhalers and as needed albuterol, steroid taper and antibiotic therapies until medication completed or re-assessment by your primary care physician. It is important following resolution of your acute presentation that you have form pulmonry function testing performed. During the admission you had noted cardiac enlargement on CXR. An echocardiogramwas performed during admission and formal read is pending at your discharge but this was not acutely related with your exacerbation and per your preference you were discharged to home with planned result follow-up upon your primary care follow-up. Your blood pressure was above goal during admission thus low dose norvasc was added and rx sent upon discharge also. Your regimen may need further adjusted pending repeat assessment at your primary care follow-up. Discharge Orders/Prescriptions Prescriptions: New amlodipine 5 mg Tablet 5 mg PO DAILY 30 Days Qty: 30 0RF aspirin 81 mg tablet,chewable 81 mg PO DAILY 30 Days Qty: 30 0RF prednisone 10 mg tablet See Taper PO DAILY Qty: 30 0RF Taper: Prednisone Taper 40 mg WITH BREAKFAST for 3 Days and 0 Hour 30 mg WITH BREAKFAST for 3 Days and 0 Hour 20 mg WITH BREAKFAST for 3 Days and 0 Hour 10 mg WITH BREAKFAST for 3 Days and 0 Hour fluticasone propion-salmeterol [Advair Diskus] 250-50 mcg/dose blister with device 1 inh inhalation Q12H Qty: 60 0RF albuterol sulfate 90 mcg/actuation aerosol powdr breath activated 2 inh inhalation Q4H PRN (Reason: Dyspnea,wheezing) Qty: 1 0RF cefdinir 300 mg capsule 300 mg PO Q12H 3 Days Qty: 6 0RF azithromycin 500 mg tablet 500 mg PO DAILY 2 Days Qty: 2 0RF Continued diphenhydramine HCl [Allergy] 25 mg tablet 50 mg PO QHS losartan [Cozaar] 50 mg tablet 50 mg PO DAILY Referrals [facility] - (Please follow-up within 3-5 days to review admission.) Disposition Disposition (needs filled in before D/C Order can be placed): Home, Self Care 05/13/23 1212<Electronically signed by Linsey Spivey MD>Linsey Spivey MD CC: Dr. Chino Sandoval DO; [facility] ~ Signed ADDENDUM by Dr. Linsey Spivey MD on 05/13/23 at 1219 ECHO resulted prior to discharge with noted LVEF 65%, mild 1+ at [facility]ARY, mildly dilated aortic root. 05/13/23 1219<Electronically signed by Linsey Spivey MD>Linsey Spivey MD cc: Dr. Chino Sandoval, DO; [facility] ~* Signed [facility] Work Phone: Discharge summary Note Date & Type Note Facility Discharge summary Note Date/Time May 13, 2023 12:18pm [facility] Medical Records Department [address] [place] [address] Discharge Summary 05/13/231216 MR#: [id number] Acct: [id number] Name: MELCHOR LYLE Rep #:[id number] : 1960 62 From: Linsey Spivey MD PCP: [place] Status:ADM IN Location: [place] [id number] Providers Date of Admission: 05/12/23 Date of Discharge: 05/13/23 Primary Care Physician: [place] [facility] Reason For Visit: COPD EXACERBATION Diagnosis Discharge Diagnosis (1) Acute exacerbation of chronic obstructive pulmonary disease: Status: Chronic Code(s): J44.1 - Chronic obstructive pulmonary disease with (acute) exacerbation (2) Hypoxia: Status: Acute Code(s): R09.02 - Hypoxemia Plan: Discharge Diagnoses: #1. Acute Hypoxia secondary to Acute on Suspected Chronic COPD with heavy tobacco use history with primarily sputum culture with Gram stain noting 1+ gram-negative rods/2+ gram-positive cocci #2. Hypertension, uncontrolled #3. Cardiomegalyon EKG w/ follow-up ECHO w/ LVEF 65%, mild 1+ at MARY, mildly dilated aortic root #4. Debility, adult failure to thrive #5. Tobacco Abuse Medications at Discharge Home Medications diphenhydramine HCl 25 mg tablet (Allergy) 50 mg PO QHS 05/11/23 losartan 50 mg tablet (Cozaar) 50 mg PO DAILY 05/11/23 albuterol sulfate 90 mcg/actuation breath activated powder inhaler 2 inh inhalation Q4H PRN Dyspnea,wheezing #1 ea 05/13/23 amlodipine 5 mg tablet 5 mg PO DAILY 30 days #30 tabs 05/13/23 aspirin 81 mg chewable tablet 81 mg PO DAILY 30 days #30 tabs 05/13/23 azithromycin 500 mg tablet 500 mg PO DAILY 2 days #2 tabs 05/13/23 cefdinir 300 mg capsule 300 mg PO Q12H 3 days #6 caps 05/13/23 fluticasone 250 mcg-salmeterol 50 mcg/dose blistr powdr for inhalation (Advair Diskus) 1 inh inhalation Q12H #60 ea 05/13/23 prednisone 10 mg tablet See Taper PO DAILY COPD exacerbation #30 tabs 05/13/23 Hospital Course Operations None Procedures 2-D Echocardiogram and EKG Summary of Care Provided Minutes Spent on Discharge: 35 Hospital Course: The patient is a 62 y/o M w/ PMHx: HTN, Hx Cigarette Tobacco use/Pipe Tobacco use who presented to the [facility] ED on 05/11/23 with dyspnea and wheezing not improving over approximate 24 hours prompting eventual ED evaluation. Admitted to medical surgical floor, maintain on oxygen with wean as tolerated to room air, continue ATC duonebs, PRN albuterol, IV methylprednisolone, HOB, IS parameters, full respiratory panel negative, rapid influenza and SARS COVID antigens negative, sputum Cx at discharge however did note preliminary with 1+ gram-negative rods/2+ gram-positive cocci with final culture still pending as noted, procalcitonin 0.10, only mildly elevated, upon admission patient was initiated on azithromycin and Rocephin which had been continued with oral transitionat discharge. Examination trial was performed and patient was appropriately weaned to room air and maintained with ambulatory trial. Patient given sputum culture as noted although pending finalization discharged to home on completion therapy of cefdinir as well as azithromycin, prednisone taper, albuterol rescue inhaler and scheduled inhaler with requested follow-up with primary care physician for formal PFTs once acute phase resolved. Cardiac enzymes remained unremarkable, EKG with no specific concerns upon presentation, echocardiogram with noted LVEF 65%, mild 1+ at MARY, mildly dilated aortic root. Patient was also maintained on a baby aspirin which was also continued upon discharge. BP also of note above goal during presentation therefore Norvasc added in addition to losartan and continued upon discharge. Given patient clinical improvement quicker than clinically expected and ability to transition to room air and ambulate on room air without desaturation as well as per patient preference patient discharged to home [facility] re[facility]uation within 3 to 5 days with continued steroid taper, antibiotic therapy, NSAIDs noted with adjustments to his blood pressure medications also. Weight / BMI Weight Weight: 186 lb 15.232 oz Body Mass Index (BMI) 31.1 ABG / Lab / Microbiology Data 05/13/23 07:05 05/13/23 07:05 Laboratory: Laboratory Results - last 24 hr 05/13/23 07:05: WBC 11.7 H, RBC 4.74, Hgb 15.4, Hct 46.9, MCV 98.9 H, MCH 32.5 H, MCHC 32.8, RDW Std Deviation 48.9 H, RDW Coeff of Monica 13.4, Plt Count 300, MPV9.6, Immature Gran % (Auto) 0.900, Neut % (Auto) 90.1 H, Lymph % (Auto) 7.2 L, Lyman % (Auto) 1.5, Eos % (Auto) 0.0, Baso % (Auto) 0.3, Absolute Neuts (auto) 10.6 H, Absolute Lymphs (auto) 0.84, Nucleated RBC % 0, Sodium 135 L, Potassium 4.5, Chloride 99, Carbon Dioxide 28.0, Anion Gap 8, BUN 15, Creatinine 0.97, Estim Creat Clear Calc 66.92, Est GFR (MDRD) Af Amer 100, Est GFR (MDRD) Non-Af 82, BUN/Creatinine Ratio 15.4, Glucose 148 H, Calcium 9.4, Total Bilirubin 0.50,AST 20, ALT 38, Alkaline Phosphatase 73, Total Protein 8.6 H, Albumin 3.8, Globulin 4.8 H, Albumin/Globulin Ratio 0.8 L Microbiology: Microbiology 05/12/23 05:20 Sputum, Expectorated/Coughed Gram Stain - Final 05/11/23 22:50 Mucosa - Nasopharyngeal Respiratory Panel (PCR) - Final 05/11/23 13:50 Nasal Secretion SARS-CoV-2 & FLU Antigen (Rapid) - Final Radiography Diagnostic Testing: Radiology Impression Echocardiogram 05/11/23 23:29 Interpretation Summary The left ventricular ejection fraction is 65 %. Mild (1+) aortic valve insufficiency. Mildly dilated aortic root. Ordering Physician: Chino Sandoval Performed By: Oneal Butler RCS D/C Instructions Discharge Diet: Low fat / Low cholesterol May resume sexual activity in: 10-14 days Call your doctor if you observe: Fever of 101 or Higher, Numbness or Tingling, Shortness of breath, Fainting spells, Chest pain, Increased palpitations (irregular heartbeat), Calf discomfort and Uncontrolled pain Meaningful Use Info Meaningful Use Diagnoses (Choose all that apply): None applicable Discharge Plan Admission Admit Date/Time: 05/12/23 10:06 Primary Reason for Your Visit: Acute Hypoxia secondary to Acute on Suspected Chronic COPD Attending Provider: Linsey Spivey Primary Care Provider: [facility] Consulting Providers: Chino Sandoval Instructions Patient Instructions: Chronic Lung Disease Infections, Discharge Instructions: COPD Additional Instructions / Restrictions: DURING THE ADMISSION: You were treated for COPD exacerbation. Please continue the inhalers and as needed albuterol, steroid taper and antibiotic therapies until medication completed or re-assessment by your primary care physician. It is important following resolution of your acute presentation that you have form pulmonry function testing performed. During the admission you had noted cardiac enlargement on CXR. An echocardiogramwas performed during admission with noted LVEF 65%, mild 1+ at MARY, mildly dilated aortic root. Please continue to follow-up with your primary care physician. Your blood pressure was above goal during admission thus low dose norvasc was added and rx sent upon discharge also. Your regimen may need further adjusted pending repeat assessment at your primary care follow-up. Discharge Orders/Prescriptions Prescriptions: New amlodipine 5 mg Tablet 5 mg PO DAILY 30 Days Qty: 30 0RF aspirin 81 mg tablet,chewable 81 mg PO DAILY 30 Days Qty: 30 0RF prednisone 10 mg tablet See Taper PO DAILY Qty: 30 0RF Taper: Prednisone Taper 40 mg WITH BREAKFAST for 3 Days and 0 Hour 30 mg WITH BREAKFAST for 3 Days and 0 Hour 20 mg WITH BREAKFAST for 3 Days and 0 Hour 10 mg WITH BREAKFAST for 3 Days and 0 Hour fluticasone propion-salmeterol [Advair Diskus] 250-50 mcg/dose blister with device 1 inh inhalation Q12H Qty: 60 0RF albuterol sulfate 90 mcg/actuation aerosol powdr breath activated 2 inh inhalation Q4H PRN (Reason: Dyspnea,wheezing) Qty: 1 0RF cefdinir 300 mg capsule 300 mg PO Q12H 3 Days Qty: 6 0RF azithromycin 500 mg tablet 500 mg PO DAILY 2 Days Qty: 2 0RF Continued diphenhydramine HCl [Allergy] 25 mg tablet 50 mg PO QHS losartan [Cozaar] 50 mg tablet 50 mg PO DAILY Referrals / Follow Up[place] [facility] [Primary Care Provider] - (Please follow-up within 3-5 days to review admission.) Disposition Disposition (needs filled in before D/C Order can be placed): Home, Self Care Charges/Coding Visit Charges Inpatient E&M: 03412 Disch Hosp >30min 05/13/23 1222 <Electronically signed by Linsey Spivey MD> Cosigner Signature (if applicable): CC: Dr. Linsey Spivey MD; [facility]~ Signed [facility] Work Phone: Evaluation note Note Date & Type Note Facility Evaluation note Diagnosis Onset Date Hypoxia acute Acute exacerbation of chroni c obstructive pulmonary disease [facility] Work Phone: Chief Complaint and Reason for Visit Chief Complaint COPD EXACERBATION COPD EXACERBATION COPD EXACERBATION Reason for Visit Hypoxia Acute exacerbation of chronic obstructive pulmonary disease Advance Directives No Advanced Directives Records Found Advance Directive Response Recorded Date/ Time Living Will No May 11 3 8:15pm Power of Drying Rack Changer No May 11 023 8:15pm Summary Purpose Family History No Family History Records Found Additional Source Comments Care Teams (unrecognized sec tion and content) Team Status: Active Member Role Status Dates [facility] Primary Care Provider Active Team Status: Active Member Role Status Dates [facility] Primary Care Provider Active Dr. Frederick Cervantes DO Emergency Provider Active Dr. Chino Sandoval DO Admit Provi lynne, Attending Provider, Other Provider Active Team Status: Active Member Role Status Dates [facility] Primary Care Provider Active Dr. Tay Huggins MD Attending Provider Active Team Status: Active Member Role Status Dates [facility] Primary Care Provider Active Dr. Frederick Cervantes DO Emergency Provider Active Dr. Chino Sandoval DO Admit Provider, Other Pro vider Active Dr. Linsey Spivey MD Attending Provider, Other Prov ider Active Team Status: Inactive Member Role Status Dates [facility] Primary Care Provider Active Dr. Frederick Cervantes , Emergency Provider Active Dr. Chino Sandoval , DO Admit Provider, Other Pro vider Active Dr. Linsey Spivey MD Attending Provider Active (unrecognized sect ion and content) No Status Records Found INFORMATION SOURCE (unrecogn ized section and content) DATE CREATED AUTHOR 06/21/2024 [facility] FOR RECORDS PERTAINING TO PATIENTS WHO ARE OR HAVE BEEN ENROLLED IN A CHEMICAL DEPENDENCY/SUBSTANCEABUSE PROGRAM, SOME INFORMATION MAY BE OMITTED. This clinical summary was aggregated from multiple sources. Caution should be exercised in using it in the provision of clinical care. This summary normalizes information from multiple sources, and as a consequence, information in this document may materially change the coding, format and clinical context of patient data. In addition, data may be omitted in some cases. CLINICAL DECISIONS SHOULD BE BASED ON THE PRIMARY CLINICAL RECORDS. [employer] provides no warranty or guarantee of the accuracy or completeness of information in this document.
[2025-04-20 12:57] LABS: SITE Not entered; VBG BASE EXCESS 4 mmol/L (-1.0-3.5); VBG PO2 80 mmHg (25-40); VBG SO2 96 % (50-70); VBG TCO2 30 mmol/L (23-33)
[2025-04-20 13:12] LABS: Anion Gap 15 (5-15); BUN 15 mg/dL (4-19); BUN/Creat Ratio 15.2 RATIO (10-20); Calcium,Total 9.3 mg/dL (7.6-11.0); Carbon Dioxide 22.7 mmol/L (21.0-32.0); Chloride 95 mmol/L (98-108); Estimated Creatinine Clearance 74.63 ml/min (50-250); Glucose 116 mg/dL (70-99); Potassium 4.4 mmol/L (3.3-5.1); Troponin T High Sensitivity < 6 ng/L (<=22)
--- NOTE | 2025-04-20 13:55 | CASEMGMT ---
Care Management Face to Face with patient for initial transition planning/care coordination assessment in the ED.? This technical document writer introduced self and role at [facility]. Patient alert and oriented. Patient willing to participate in assessment and is able to answer all questions appropriately.? Care providers, pharmacy, and demographics verified. Admitting Diagnosis: Acute Exacerbation of chronic obstructive pulmonary disease (COPD) Other diagnosis history: Including but may not be limited to: Hypertension (HTN) PCP: Dr. Becker through the [place] ([place] location). Specialists: None [facility] Prescription Benefit: Yes with $8 co-pay Living Will/HPOA: No but interested in completing during this admission. LNOK: Patient is not and does not have any children. LKOK was identified as patient?s only living sibling: Delores Bermudez, also of [place]. Living Arrangements: Patient currently resides in his parent?s old house with his sister, Delores and Delores?s . The house is a one-story with a full basement. There are 2 stairs leafing in/out of the house from the front, 3 from the garage and 1 from the back of the house which patient stated he is able to navigate without difficulty.? Patient denied there being and handrails and patient stated there is not a need for them at this time. Patient denied any environmental barriers. Transportation: Patient drives. DME: Grab bars in the shower, shower chair and a [id number]. Patient stated he is not currently on any oxygen. HHC: Denied SNF/Rehab: Denied Community Resources: [facility] [place] [facility] History: Anxiety and Depression. Patient denied being on any medication and described his symptoms as being ?mostly? managed. Patient used to be involved in counseling but is no longer per patient?s preference. Patient goals: Patient wishes to discharge home, denies need for home health care at this time. Patient denies any further needs or concerns at this time. Disposition Plan: admission to acute; RN CM/SW to follow for discharge planning needs that may arise. Beatrice Ryan, MASTER CERTIFIED RV TECHNICIAN, BIKE MECHANIC
--- NOTE | 2025-04-20 14:34 | HP.PCM.HOS_ITS ---
HPI - General General Date of Admission: 04/20/25 Date of Service: 04/20/25 Chief Complaint: Increasing SOB HPI Narrative MELCHOR LYLE, is a 64 M with a history of suspected COPD, tobacco use, hypertension and seasonal allergies who presented to [facility] ED 04/20/2025 due to increasing shortness of breath and cough. In the ED temp 97.4, heart rate initially 119 with a blood pressure 156/92, respiratory rate 26 and patient was 86% for with squad and was placed on 2 L of nasal cannula in the ED. VBG with a PCO2 of 46, bicarb of 29 and PO2 of 80, normal pH, slight increase in white blood cell count to 13.6, no significant abnormalities on BMP and troponin within normal limits. Chest x-ray negative. Patient with significant work of breathing and wheezing, he was given a neb and steroids with some improvement however continued to have difficulty and was not stable for discharge. Hospitalist contacted for admission. Patient evaluated at bedside. He reports increasing shortness of breath for 1 week with cough with peoples sputum, no fevers or chest pain, no other acute complaints. Reports he feels a little bit better after breathing treatment and steroids but is still significantly struggling. [facility] Medical History Hypertension Home Medications ?Medication ?Instructions ?Recorded ?Last Taken ?Type diphenhydramine HCl 25 mg tablet 50 mg PO QHS ALLERGIE S 05/11/23 04/19/25 History (Allergy) losartan 50 mg tablet (Cozaar) 50 mg PO QHS BLOOD PRES SURE 05/11/23 04/19/25 History albuterol sulfate 90 mcg/actuation 2 inh inhalation Q4 H PRN SHORTNESS 05/13/23 04/19/25 Rx breath activated powder inhaler OF BREATH #1 ea amlodipine 5 mg tablet 5 mg PO QHS BLOOD PRESSURE 0 05/27/24 04/19/25 History Allergy/AdvReac Type Severity Reaction Status Date / Time poison dennis extract Allergy Intermediate Rash Verified 05/27/24 07:20 Social History number of children: 0 Smoking Status: Current every day smoker tobacco type: pipe ROS ROS Narrative General: Denies fever/chills HENT: Denies headache, denies stuffy nose, denies sore throat EYES: Denies changes in vision Resp: Cough with acosta sputum and increased shortness of breath Cardiac: Denies chest pain GI: Denies abdominal pain, denies changes in bowel, denies nausea/vomiting : Denies changes in urination Extremity: Denies swelling MSK: Denies weakness Neuro: Denies any numbness/tingling Heme: Denies any bleeding or bruising Skin: Denies rashes Psychiatric: No complaints voiced Vital Signs Vital Signs Vital Signs: 04/20/25 12:01 04/20/25 12:24 04/20/25 12:37 Temperature 97.4 F L Temperature Source Temporal Pulse Rate 118 H 107 H Respiratory Rate 26 H 20 H Respiratory Effort Short of Breath Labored Accessory Muscle Use Respiratory Depth Deep Respiratory Pattern Tachypnea Blood Pressure 156/92 H Blood Pressure Mean 113 Pulse Ox 92 Oxygen Delivery Method Room Air Nasal Cannula Oxygen Flow Rate (L/min) 2 04/20/25 13:04 04/20/25 14:00 04/20/25 14:05 Temperature 97.8 F 98 F 98 F Temperature Source Oral Oral Pulse Rate 82 92 94 Respiratory Rate 18 24 H 24 H Respiratory Effort Respiratory Depth Respiratory Pattern Blood Pressure 147/92 H 159/87 H 149/89 H Blood Pressure Mean 110 111 109 Pulse Ox 96 96 96 Oxygen Delivery Method Nasal Cannula Nasal Cannula Oxygen Flow Rate (L/min) 2 2 Weight Weight: 91.1 kg Body Mass Index (BMI) 33.4 Physical Exam Narrative General: Alert, oriented HEENT: Atraumatic, normocephalic Eyes: Anicteric, normal conjunctiva, extraocular movements grossly intact Neck: Supple Respiratory: Significant inspiratory and expiratory wheezes with increased respiratory effort Cardiovascular: Regular rate and rhythm GI: Soft, nontender, nondistended Extremities: No edema Musculoskeletal: Moving all extremities Neuro: No overt focal neurological deficits Skin: No rashes appreciated Psych: Cooperative Results Lab / Micro Data 04/20/25 12:25 04/20/25 12:25 Labs: Laboratory Results - last 24 hr 04/20/25 12:25: WBC 13.6 H, RBC 4.93, Hgb 15.9, Hct 46.4, MCV 94.1 H, MCH 32.3 H , MCHC 34.3, RDW Std Deviation 44.8 H, RDW Coeff of Monica 13.1, Plt Count 334, MPV 9.3, Immature Gran % (Auto) 0.400, Neut % (Auto) 80.1 H, Lymph % (Auto) 9.1 L, [place] % (Auto) 7.4, Eos % (Auto) 2.3, Baso % (Auto) 0.7, Absolute Neuts (auto) 10.9 H, Absolute Lymphs (auto) 1.24, Nucleated RBC % 0, Sodium 133, Potassium 4.4, Chloride 95 L, Carbon Dioxide 22.7, Anion Gap 15, BUN 15, Creatinine 1.01, Estim Creat Clear Calc 74.63, Est GFR (MDRD) Non-Af 82, BUN/Creatinine Ratio 15.2, Glucose 116 H, Calcium 9.3, Troponin T High Sens < 6 Micro: Microbiology 04/20/25 12:45 Mucosa - Nose SARS-CoV-2, Influenza & RSV (PCR) - Final ABG Data ABG results: ABG 04/20/25 12:54 Specimen Type NIRMAL Sample Site Not entered VBG pH 7.40 VBG pO2 80 H VBG HCO3 29 H VBG Total CO2 30 VBG O2 Sat (Calc) 96 H VBG Base Excess 4 H POC Mix VBG pCO2 Pt Tmp 46.3 O2 Delivery Device Not entered Imaging Radiology Impression Chest X-Ray 04/20/25 12:14 IMPRESSION: No Acute Findings. [facility] Assessment & Plan Assessment/Plan (1) Acute exacerbation of chronic obstructive pulmonary disease (COPD): PLAN: Plan # Hypoxia secondary to acute exacerbation of COPD -Patient reportedly 86% for squad and is on 2 L of O2, is in respiratory distress with increased work of breathing reports slowly improving -Admit to floor, continuous O2 monitoring -Chest x-ray: No acute process -COVID negative, obtain respiratory panel, sputum culture if able -O2 in place, wean as tolerated -IV methylprednisone -Scheduled DuoNebs -Albuterol prn -Antibiotics: Azithromycin -Incentive spirometer -Mucinex - Does not seem patient has formal diagnosis of COPD however comes in with what seemed to be very convincing COPD exacerbations - Would benefit from following with pulmonology on discharge for outpatient PFTs #Hypertension - Continue home amlodipine 5 mg and losartan 50 mg, blood pressure currently 152/81 in the ED # Seasonal allergies - Continue Benadryl nightly will make this as needed #Tobacco use -Advise cessation -Nicotine replacement available if desired #DVT ppx: Lovenox subcu Madiha Razo MD Charges/Coding Visit Charges Inpatient E&M: 24525 Init Hosp L2
[2025-04-20 15:00] LABS: Troponin T High Sens 2 HR 7 ng/L (<=22)
--- OUTSIDE RECORDS SUMMARY | 2025-04-20 15:05 | XMS RPT_ITS | CCD ---
Author Organization [facility] Care Team Providers Care Software Sales Executive Name Role Phone [facility], [place] Primary Care Provider Dr. Frederick Talley Emergency Provider Dr. Chino Sandoval Admit Provider [phone] Dr. Chino Sandoval Attending Provider Dr. Chino Sandoval Other Provider Dr. Tay Huggins Attending Provider Dr. Linsey Spivey Attending Provider [phone] Dr. Linsey Spivey Other Provider [phone] Madiha Razo Admitting Unavailable [facility] [place] Primary Care Unavailable Madiha Razo Consulting Unavailable Madiha Razo Attending Unavailable Madiha Razo Admitting Unavailable [facility], [place] Primary Care Unavailable RazoMadiha Consulting Unavailable Madiha Razo Attending Unavailable Madiha Razo Admitting Unavailable [facility], [place] Primary Care Unavailable Madiha Razo Attending Unavailable Allergies Allergy Classification Reported Allergen(s) Allergy Type Date of Onset Reaction(s) Facility (1 source) POISON DENNIS EXTRACT Drug Allergy 05-11-2023 Rash [facility] (1 source) poison dennis extract Drug allergy (disorder) 05-27-2024 [facility] Repository Medications Current Medications Medication Drug Class(es) [...] )on 09-11-2024 BUN/CRE 16.2 RATIO Normal 10-20 [facility] Comment on above: Performed By: #### L 500.2500, L100.0100 #### [facility] [address] [place], [address] CA,Total 9.7 mg/dL Normal 8.5-10.1 [facility] Comment on above: Performed By: #### L 500.2500, L100.0100 #### [facility] [address] [place], [address] Chloride [Moles/Vol] 102 mmol/L Normal 98-[address] [facility] Comment on above: Performed By: #### L 500.2500, L100.0100 #### [facility] [address] [place], [address] CO2 [Moles/Vol] 26.0 mmol/L Normal 21.0-32.0 [facility] Comment on above: Performed By: #### L 500.2500, L100.0100 #### [facility] [address] [place], [address] Creatinine [Mass/Vol] 1.05 mg/dL Normal 0.70-1.30 [facility] Comment on above: Result Comment: The validity of the calculated GFR GFRAA in patients over 70 years has not been determined. Clinical correlation is essential. Performed By: #### L 500.2500, L100.0100 #### [facility] [address] [place], [address] ECRCL 72.08 ml/min Normal [facility] Comment on above: Performed By: #### L 500.2500, L100.0100 #### [facility] [address] [place], [address] EST GFR - AA 91 mL/min Normal >60 [facility] Comment on above: Result Comment: Afri can [place] GFR Calc Performed By: #### L 500.2500, L100.0100 #### [facility] [address] [place], [address] GAP 7 Normal 5-15 [facility] Comment on above: Performed By: #### L 500.2500, L100.0100 #### [facility] [address] [place], [address] GFR/1.73 sq M.predicted among non-blacks MDRD (S/P/Bld) [Vol rate/Area] 75 mL/min/{1.73_m2} Normal >60 [facility] Comment on above: Result Comment: Non- GFR Calc Performed By: #### L 500.2500, L100.0100 #### [facility] [address] [place], [address] Glucose [Mass/Vol] 149 mg/dL High 74-106 [facility] Comment on above: Result Comment: Fast ing Glucose result greater than or equal to 126 mg/dL suggests DIABETES MELLITUS per A.D.A. criteria. Performed By: #### L 500.2500, L100.0100 #### [facility] [address] [place], [address] Potassium [Moles/Vol] 4.4 mmol/L Normal 3.5-5.1 [facility] Comment on above: Performed By: #### L 500.2500, L100.0100 #### [facility] [address] [place], [address] Sodium [Moles/Vol] 135 mmol/L Low 136-145 [facility] Comment on above: Performed By: #### L 500.2500, L100.0100 #### [facility] [address] [place], [address] Urea nitrogen [Mass/Vol] 17 mg/dL Normal 7-18 [facility] Comment on above: Performed By: #### L 500.2500, L100.0100 #### [facility] [address] [place], [address] CBC W/Diff, Automatedon 09-09 18-2023 Absolute Lymph 1.10 X10 3/uL Normal 0.83-4.51 [facility] Comment on above: Performed By: #### L 500.2500, L100.0100 #### [facility] [address] [place], [address] Absolute Neut 14.7 X10 3/uL High 2.0-7.7 [facility] Comment on above: Performed By: #### L 500.2500, L100.0100 #### [facility] [address] [place], [address] Basophils/100 WBC (Bld) 0.1 % Normal 0-1 [facility] Comment on above: Performed By: #### L 500.2500, L100.0100 #### [facility] [address] [place], [address] Eosinophils/100 WBC (Bld) 0.0 % Normal 0-5 [facility] Comment on above: Performed By: #### L 500.2500, L100.0100 #### [facility] [address] [place], [address] Erythrocyte distribution width (RBC) [Ratio] 13.0 % Normal 11.6-14.6 [facility] Comment on above: Performed By: #### L 500.2500, L100.0100 #### [facility] [address] [place], [address] Hematocrit (Bld) [Volume fraction] 46.5 % Normal 40-54 [facility] Comment on above: Performed By: #### L 500.2500, L100.0100 #### [facility] [address] [place], [address] Hemoglobin (Bld) [Mass/Vol] 15.2 g/dL Normal 13.0-16.5 [facility] Comment on above: Performed By: #### L 500.2500, L100.0100 #### [facility] [address] [place], [address] IG% 1.100 High 0.0-0.9 [facility] Comment on above: Result Comment: IG% - Immature Granulocytes (promyelocytes, myelocytes and metamyelocytes) > 1% indicates that a LEFT SHIFT is Present. Performed By: #### L 500.2500, L100.0100 #### [facility] [address] [place], [address] Lymphocytes/100 WBC (Bld) 6.7 % Low 19-41 [facility] Comment on above: Performed By: #### L 500.2500, L100.0100 #### [facility] [address] [place], [address] MCH (RBC) [Entitic mass] 31.8 pg Normal 27.0-32.0 [facility] Comment on above: Performed By: #### L 500.2500, L100.0100 #### [facility] [address] [place], [address] MCHC (RBC) [Mass/Vol] 32.7 g/dL Normal 32-36 [facility] Comment on above: Performed By: #### L 500.2500, L100.0100 #### [facility] [address] [place], [address] MCV (RBC) [Entitic vol] 97.3 fL High 80-94 [facility] Comment on above: Performed By: #### L 500.2500, L100.0100 #### [facility] [address] [place], [address] Monocytes/100 WBC (Bld) 3.0 % Normal 0-10 [facility] Comment on above: Performed By: #### L 500.2500, L100.0100 #### [facility] [address] [place], [address] Neutrophils/100 WBC (Bld) 89.1 % High 47-70 [facility] Comment on above: Performed By: #### L 500.2500, L100.0100 #### [facility] [address] [place], [address] Nucleated RBC (Bld) [#/Vol] 0 10*3/uL Normal 0-5 [facility] Comment on above: Performed By: #### L 500.2500, L100.0100 #### [facility] [address] [place], [address] Platelet mean volume (Bld) [Entitic vol] 9.4 fL Normal 6.2-12.0 [facility] Comment on above: Performed By: #### L 500.2500, L100.0100 #### [facility] [address] [place], [address] Platelets (Bld) [#/Vol] 377 10*3/uL Normal 150-450 [facility] Comment on above: Performed By: #### L 500.2500, L100.0100 #### [facility] [address] [place], [address] RBC (Bld) [#/Vol] 4.78 10*6/uL Normal 4.6-6.2 [facility] Comment on above: Performed By: #### L 500.2500, L100.0100 #### [facility] [address] [place], [address] RDW SD 46.9 fl High 35.1-43.9 [facility] Comment on above: Performed By: #### L 500.2500, L100.0100 #### [facility] [address] [place], [address] WBC (Bld) [#/Vol] 16.5 10*3/uL High 4.4-11.0 [facility] Comment on above: Performed By: #### L 500.2500, L100.0100 #### [facility] [address] [place], [address] Discharge Instructionon 05-19 Discharge Instruction [facility] Medical Records Department [address] [place] [address] Instructions for Home/Discharge Instructions 05/29/24 1243 MR#: [id number] Acct: [id number] Name: MELCHOR LYLE Rep #: [id number] : 1960 63 From: Madiha Razo MD PCP: [place] [facility] Status:ADM IN Discharge Instructions Diet Discharge [...] Attending Provider: Madiha Razo Primary Care Provider: [facility] Instructions Patient Instructions: Asthma and COPD, COPD [...] -For your continued congestion please obtain Mucinex [id number] to help with your congestion symptoms -Continue to use your albuterol inhaler as needed, we discussed nebulizers and per discussion you will follow-up with your [place] doctors for this -Please call your primary [...] Becker MD [Non-Staff] - Within 1 Week [facility] [Primary Care Provider] - Disposition Disposition (needs filled in before D/C Order can be placed): Home, Self Care 05/29/24 1251 Madiha Razo MD CC: [facility] Signed Normal [facility] Respiratory Cultureon 2023 RESPC Pseudomonas aeruginosa Amount Growth 1+ Pseudomonas aeruginosa: REACTION Aztreonam Islt KB 27 S Pseudomonas aeruginosa: REACTION Amikacin Islt ARMAAN <=2 S Cefepime Islt ARMAAN 2 S Ciprofloxacin Islt ARMAAN <=0.25 S Imipenem Islt ARMAAN 1 S levoFLOXacin Islt ARMAAN 0.5 S Meropenem Islt ARMAAN <=0.25 S Pip+Tazo Islt ARMAAN 8 S Tobramycin Islt ARMAAN <=1 S Normal [facility] Comment on above: Performed By: #### M 100.2230, M100.1999 ####[facility] [address] [place], [place], [address] Basic Metabolic Profile (BMP )on 05-28-2024 BUN/CRE 13.9 RATIO Normal 07-07 [facility] Comment on above: Performed By: #### L 501.2300, L501.6220, L501.5200, L500.2500, L100.0100 #### [facility] [address] [place], [address] CA,Total 9.4 mg/dL Normal 8.5-10.1 [facility] Comment on above: Performed By: #### L 501.2300, L501.9520, L501.5200, L500.2500, L100.0100 #### [facility] [address] [place], [address] Chloride [Moles/Vol] 102 mmol/L Normal 98-[address] [facility] Comment on above: Performed By: #### L 501.2300, L501.9520, L501.5200, L500.2500, L100.0100 #### [facility] [address] [place], [address] CO2 [Moles/Vol] 25.0 mmol/L Normal 21.0-32.0 [facility] Comment on above: Performed By: #### L 501.2300, L501.9520, L501.5200, L500.2500, L100.0100 #### [facility] [address] [place], [address] Creatinine [Mass/Vol] 1.01 mg/dL Normal 0.70-1.30 [facility] Comment on above: Result Comment: The validity of the calculated GFR GFRAA in patients over 70 years has not been determined. Clinical correlation is essential. Performed By: #### L 501.2300, L501.9520, L501.5200, L500.2500, L100.0100 #### [facility] [address] [place], [address] ECRCL 74.94 ml/min Normal [facility] Comment on above: Performed By: #### L 501.2300, L501.9520, L501.5200, L500.2500, L100.0100 #### [facility] [address] [place], [address] EST GFR - AA 95 mL/min Normal >60 [facility] Comment on above: Result Comment: Afri can [place] GFR Calc Performed By: #### L 501.2300, L501.9520, L501.5200, L500.2500, L100.0100 #### [facility] [address] [place], [address] GAP 7 Normal 5-15 [facility] Comment on above: Performed By: #### L 501.2300, L501.9520, L501.5200, L500.2500, L100.0100 #### [facility] [address] [place], [address] GFR/1.73 sq M.predicted among non-blacks MDRD (S/P/Bld) [Vol rate/Area] 79 mL/min/{1.73_m2} Normal >60 [facility] Comment on above: Result Comment: Non- GFR Calc Performed By: #### L 501.2300, L501.9520, L501.5200, L500.2500, L100.0100 #### [facility] [address] [place], [address] Glucose [Mass/Vol] 139 mg/dL High 74-106 [facility] Comment on above: Result Comment: Fast ing Glucose result greater than or equal to 126 mg/dL suggests DIABETES MELLITUS per A.D.A. criteria. Performed By: #### L 501.2300, L501.9520, L501.5200, L500.2500, L100.0100 #### [facility] [address] [place], [address] Potassium [Moles/Vol] 3.9 mmol/L Normal 3.5-5.1 [facility] Comment on above: Performed By: #### L 501.2300, L501.9520, L501.5200, L500.2500, L100.0100 #### [facility] [address] [place], [address] Sodium [Moles/Vol] 134 mmol/L Low 136-145 [facility] Comment on above: Performed By: #### L 501.2300, L501.9520, L501.5200, L500.2500, L100.0100 #### [facility] [address] [place], [address] Urea nitrogen [Mass/Vol] 14 mg/dL Normal 7-18 [facility] Comment on above: Performed By: #### L 501.2300, L501.9520, L501.5200, L500.2500, L100.0100 #### [facility] [address] [place], [address] CBC W/Diff, Automatedon 05-19 0-2023 Absolute Lymph 1.34 X10 3/uL Normal 0.83-4.51 [facility] Comment on above: Performed By: #### L 501.2300, L501.9520, L501.5200, L500.2500, L100.0100 #### [facility] [address] [place], [address] Absolute Neut 12.2 X10 3/uL High 2.0-7.7 [facility] Comment on above: Performed By: #### L 501.2300, L501.9520, L501.5200, L500.2500, L100.0100 #### [facility] [address] [place], [address] Basophils/100 WBC (Bld) 0.3 % Normal 0-1 [facility] Comment on above: Performed By: #### L 501.2300, L501.9520, L501.5200, L500.2500, L100.0100 #### [facility] [address] [place], [address] Eosinophils/100 WBC (Bld) 0.1 % Normal 0-5 [facility] Comment on above: Performed By: #### L 501.2300, L501.9520, L501.5200, L500.2500, L100.0100 #### [facility] [address] [place], [address] Erythrocyte distribution width (RBC) [Ratio] 13.0 % Normal 11.6-14.6 [facility] Comment on above: Performed By: #### L 501.2300, L501.9520, L501.5200, L500.2500, L100.0100 #### [facility] [address] [place], [address] Hematocrit (Bld) [Volume fraction] 44.4 % Normal 40-54 [facility] Comment on above: Performed By: #### L 501.2300, L501.9520, L501.5200, L500.2500, L100.0100 #### [facility] [address] [place], [address] Hemoglobin (Bld) [Mass/Vol] 14.9 g/dL Normal 13.0-16.5 [facility] Comment on above: Performed By: #### L 501.2300, L501.9520, L501.5200, L500.2500, L100.0100 #### [facility] [address] [place], [address] IG% 0.600 Normal 0.0-0.9 [facility] Comment on above: Result Comment: IG% - Immature Granulocytes (promyelocytes, myelocytes and metamyelocytes) > 1% indicates that a LEFT SHIFT is Present. Performed By: #### L 501.2300, L501.9520, L501.5200, L500.2500, L100.0100 #### [facility] [address] [place], [address] Lymphocytes/100 WBC (Bld) 9.2 % Low 19-41 [facility] Comment on above: Performed By: #### L 501.2300, L501.9520, L501.5200, L500.2500, L100.0100 #### [facility] [address] [place], [address] MCH (RBC) [Entitic mass] 32.2 pg High 27.0-32.0 [facility] Comment on above: Performed By: #### L 501.2300, L501.9520, L501.5200, L500.2500, L100.0100 #### [facility] [address] [place], [address] MCHC (RBC) [Mass/Vol] 33.6 g/dL Normal 32-36 [facility] Comment on above: Performed By: #### L 501.2300, L501.9520, L501.5200, L500.2500, L100.0100 #### [facility] [address] [place], [address] MCV (RBC) [Entitic vol] 95.9 fL High 80-94 [facility] Comment on above: Performed By: #### L 501.2300, L501.9520, L501.5200, L500.2500, L100.0100 #### [facility] [address] [place], [address] Monocytes/100 WBC (Bld) 6.5 % Normal 0-10 [facility] Comment on above: Performed By: #### L 501.2300, L501.9520, L501.5200, L500.2500, L100.0100 #### [facility] [address] [place], [address] Neutrophils/100 WBC (Bld) 83.3 % High 47-70 [facility] Comment on above: Performed By: #### L 501.2300, L501.9520, L501.5200, L500.2500, L100.0100 #### [facility] [address] [place], [address] Nucleated RBC (Bld) [#/Vol] 0 10*3/uL Normal 0-5 [facility] Comment on above: Performed By: #### L 501.2300, L501.9520, L501.5200, L500.2500, L100.0100 #### [facility] [address] [place], [address] Platelet mean volume (Bld) [Entitic vol] 9.4 fL Normal 6.2-12.0 [facility] Comment on above: Performed By: #### L 501.2300, L501.9520, L501.5200, L500.2500, L100.0100 #### [facility] [address] [place], [address] Platelets (Bld) [#/Vol] 367 10*3/uL Normal 150-450 [facility] Comment on above: Performed By: #### L 501.2300, L501.9520, L501.5200, L500.2500, L100.0100 #### [facility] [address] [place], [address] RBC (Bld) [#/Vol] 4.63 10*6/uL Normal 4.6-6.2 [facility] Comment on above: Performed By: #### L 501.2300, L501.9520, L501.5200, L500.2500, L100.0100 #### [facility] [address] [place], [address] RDW SD 45.8 fl High 35.1-43.9 [facility] Comment on above: Performed By: #### L 501.2300, L501.9520, L501.5200, L500.2500, L100.0100 #### [facility] [address] [place], [address] WBC (Bld) [#/Vol] 14.6 10*3/uL High 4.4-11.0 [facility] Comment on above: Performed By: #### L 501.2300, L501.9520, L501.5200, L500.2500, L100.0100 #### [facility] [address] [place], [address] Magnesiumon 05-28-2024 Magnesium [Mass/Vol] 2.3 mg/dL Normal 1.6-2.[address] [facility] Comment on above: Performed By: #### L 501.2300, L501.9520, L501.5200, L500.2500, L100.0100 ####[facility] [address] [place], [address] Phosphoruson 05-28-2024 Phosphate [Mass/Vol] 4.1 mg/dL Normal 2.5-4.[address] [facility] Comment on above: Performed By: #### L 501.2300, L501.9520, L501.5200, L500.2500, L100.0100 ####[facility] [address] [place], [address] Thyroid Stim Hormone (TSH)on 05-28-2024 TSH 0.502 uIU/mL Normal 0.358-3.740 [facility] Comment on above: Performed By: #### L 501.2300, L501.9520, L501.5200, L500.2500, L100.0100 ####[facility] [address] [place], [address] 12 Lead EKGon 05-27-2024 12 Lead EKG [facility] Cardiovascular Services [address] [place] [address] 12 Lead EKG 05/27/24 0728 MR#: [id number] Acct: [id number] Name: MELCHOR LYLE Rep #: [id number] : 1960 63 From: Vance Gomez MD Attending Dr: Dr. Madiha Razo MD Status: ADM IN Ordering Dr: Mike Headley DO Date: 05/27/24 Location: [facility] Sex: M C Admitted: 05/27/24 Test Reason : SOB Blood Pressure : / mmHG Vent. Rate : 096 BPM Atrial Rate : 096 BPM P-R Int : 168 ms QRS Dur : 068 ms QT Int : 324 ms P-R-T Axes : 031 030 052 degrees QTc Int : 409 ms Normal sinus rhythm Normal ECG Confirmed by NADINE TERAN, VANCE ([id number]), manuscript editor HUMZA CANO ([id number]) on 05/28/2024 7:34:34 AM Referred By: Confirmed By:VANCE GOMEZ MD 05/28/24 0734 Date Vance Gomez MD CC: Dr. Mike Headley DO; Dr. Madiha Razo MD; [facility] Signed Normal [facility] BNP,B-Type NATRIURETIC PEPTI Jeovany 05-27-2024 Natriuretic peptide B (Bld) [Mass/Vol] 6.5 pg/mL Normal 0-100 [facility] Comment on above: Performed By: #### L 500.2500, L501.4020, L100.0100, L503.6620 ####[facility] [address] [place], [address] Basic Metabolic Profile (BMP )on 05-27-2024 BUN/CRE 12.8 RATIO Normal 10-20 [facility] Comment on above: Order Comment: 'TROP ' Serial specimen #1, #2 or #3: 1 Performed By: #### L 500.2500, L501.4020, L100.0100, L503.6620 ####[facility] [address] [place], [address] CA,Total 9.6 mg/dL Normal 8.5-10.1 [facility] Comment on above: Order Comment: 'TROP ' Serial specimen #1, #2 or #3: 1 Performed By: #### L 500.2500, L501.4020, L100.0100, L503.6620 ####[facility] [address] [place], [address] Chloride [Moles/Vol] 102 mmol/L Normal 98-[address] [facility] Comment on above: Order Comment: 'TROP ' Serial specimen #1, #2 or #3: 1 Performed By: #### L 500.2500, L501.4020, L100.0100, L503.6620 ####[facility] [address] [place], [address] CO2 [Moles/Vol] 27.0 mmol/L Normal 21.0-32.0 [facility] Comment on above: Order Comment: 'TROP ' Serial specimen #1, #2 or #3: 1 Performed By: #### L 500.2500, L501.4020, L100.0100, L503.6620 ####[facility] [address] [place], [address] Creatinine [Mass/Vol] 1.09 mg/dL Normal 0.70-1.30 [facility] Comment on above: Order Comment: 'TROP ' Serial specimen #1, #2 or #3: 1 Result Comment: The validity of the calculated GFR GFRAA in patients over 70 years has not been determined. Clinical correlation is essential. Performed By: #### L 500.2500, L501.4020, L100.0100, L503.6620 ####[facility] [address] [place], [address] ECRCL 70.18 ml/min Normal [facility] Comment on above: Order Comment: 'TROP ' Serial specimen #1, #2 or #3: 1 Performed By: #### L 500.2500, L501.4020, L100.0100, L503.6620 ####[facility] [address] [place], [address] EST GFR - AA 87 mL/min Normal >60 [facility] Comment on above: Order Comment: 'TROP ' Serial specimen #1, #2 or #3: 1 Result Comment: Afri can [place] GFR Calc Performed By: #### L 500.2500, L501.4020, L100.0100, L503.6620 ####[facility] [address] [place], [address] GAP 8 Normal 5-15 [facility] Comment on above: Order Comment: 'TROP ' Serial specimen #1, #2 or #3: 1 Performed By: #### L 500.2500, L501.4020, L100.0100, L503.6620 ####[facility] [facility] [address] [place], [address] GFR/1.73 sq M.predicted among non-blacks MDRD (S/P/Bld) [Vol rate/Area] 72 mL/min/{1.73_m2} Normal >60 [facility] Comment on above: Order Comment: 'TROP ' Serial specimen #1, #2 or #3: 1 Result Comment: Non- GFR Calc Performed By: #### L 500.2500, L501.4020, L100.0100, L503.6620 ####[facility] [address] [place], [address] Glucose [Mass/Vol] 157 mg/dL High 74-106 [facility] Comment on above: Order Comment: 'TROP ' Serial specimen #1, #2 or #3: 1 Result Comment: Fast ing Glucose result greater than or equal to 126 mg/dL suggests DIABETES MELLITUS per A.D.A. criteria. Performed By: #### L 500.2500, L501.4020, L100.0100, L503.6620 ####[facility] [address] [place], [address] Potassium [Moles/Vol] 4.4 mmol/L Normal 3.5-5.1 [facility] Comment on above: Order Comment: 'TROP ' Serial specimen #1, #2 or #3: 1 Performed By: #### L 500.2500, L501.4020, L100.0100, L503.6620 ####[facility] [address] [place], [address] Sodium [Moles/Vol] 137 mmol/L Normal 136-145 [facility] Comment on above: Order Comment: 'TROP ' Serial specimen #1, #2 or #3: 1 Performed By: #### L 500.2500, L501.4020, L100.0100, L503.6620 ####[facility] [address] [place], [address] Urea nitrogen [Mass/Vol] 14 mg/dL Normal 7-18 [facility] Comment on above: Order Comment: 'TROP ' Serial specimen #1, #2 or #3: 1 Performed By: #### L 500.2500, L501.4020, L100.0100, L503.6620 ####[facility] [address] [place], [address] CBC W/Diff, Automatedon 09-0 9-4 Absolute Lymph 1.40 X10 3/uL Normal 0.83-4.51 [facility] Comment on above: Performed By: #### L 500.2500, L501.4020, L100.0100, L503.6620 ####[facility] [address] [place], [address] Absolute Neut 10.6 X10 3/uL High 2.0-7.7 [facility] Comment on above: Performed By: #### L 500.2500, L501.4020, L100.0100, L503.6620 ####[facility] [address] [place], [address] Basophils/100 WBC (Bld) 0.8 % Normal 0-1 [facility] Comment on above: Performed By: #### L 500.2500, L501.4020, L100.0100, L503.6620 ####[facility] [address] [place], [address] Eosinophils/100 WBC (Bld) 2.9 % Normal 0-5 [facility] Comment on above: Performed By: #### L 500.2500, L501.4020, L100.0100, L503.6620 ####[facility] [address] [place], [address] Erythrocyte distribution width (RBC) [Ratio] 12.8 % Normal 11.6-14.6 [facility] Comment on above: Performed By: #### L 500.2500, L501.4020, L100.0100, L503.6620 ####[facility] [address] [place], [address] Hematocrit (Bld) [Volume fraction] 50.9 % Normal 40-54 [facility] Comment on above: Performed By: #### L 500.2500, L501.4020, L100.0100, L503.6620 ####[facility] [address] [place], [address] Hemoglobin (Bld) [Mass/Vol] 17.0 g/dL High 13.0-16.5 [facility] Comment on above: Performed By: #### L 500.2500, L501.4020, L100.0100, L503.6620 ####[facility] [address] [place], [address] IG% 0.500 Normal 0.0-0.9 [facility] Comment on above: Result Comment: IG% - Immature Granulocytes (promyelocytes, myelocytes and metamyelocytes) > 1% indicates that a LEFT SHIFT is Present. Performed By: #### L 500.2500, L501.4020, L100.0100, L503.6620 ####[facility] [address] [place], [address] Lymphocytes/100 WBC (Bld) 10.6 % Low 19-41 [facility] Comment on above: Performed By: #### L 500.2500, L501.4020, L100.0100, L503.6620 ####[facility] [address] [place], [address] MCH (RBC) [Entitic mass] 32.0 pg Normal 27.0-32.0 [facility] Comment on above: Performed By: #### L 500.2500, L501.4020, L100.0100, L503.6620 ####[facility] [address] [place], [address] MCHC (RBC) [Mass/Vol] 33.4 g/dL Normal 32-36 [facility] Comment on above: Performed By: #### L 500.2500, L501.4020, L100.0100, L503.6620 ####[facility] [address] [place], [address] MCV (RBC) [Entitic vol] 95.7 fL High 80-94 [facility] Comment on above: Performed By: #### L 500.2500, L501.4020, L100.0100, L503.6620 ####[facility] [address] [place], [address] Monocytes/100 WBC (Bld) 5.1 % Normal 0-10 [facility] Comment on above: Performed By: #### L 500.2500, L501.4020, L100.0100, L503.6620 ####[facility] [address] [place], [address] Neutrophils/100 WBC (Bld) 80.1 % High 47-70 [facility] Comment on above: Performed By: #### L 500.2500, L501.4020, L100.0100, L503.6620 ####[facility] [address] [place], [address] Nucleated RBC (Bld) [#/Vol] 0 10*3/uL Normal 0-5 [facility] Comment on above: Performed By: #### L 500.2500, L501.4020, L100.0100, L503.6620 ####[facility] [address] [place], [address] Platelet mean volume (Bld) [Entitic vol] 9.0 fL Normal 6.2-12.0 [facility] Comment on above: Performed By: #### L 500.2500, L501.4020, L100.0100, L503.6620 ####[facility] [address] [place], [address] Platelets (Bld) [#/Vol] 359 10*3/uL Normal 150-450 [facility] Comment on above: Performed By: #### L 500.2500, L501.4020, L100.0100, L503.6620 ####[facility] [address] [place], [address] RBC (Bld) [#/Vol] 5.32 10*6/uL Normal 4.6-6.2 [facility] Comment on above: Performed By: #### L 500.2500, L501.4020, L100.0100, L503.6620 ####[facility] [address] [place], [address] RDW SD 45.3 fl High 35.1-43.9 [facility] Comment on above: Performed By: #### L 500.2500, L501.4020, L100.0100, L503.6620 ####[facility] [address] [place], [address] WBC (Bld) [#/Vol] 13.2 10*3/uL High 4.4-11.0 [facility] Comment on above: Performed By: #### L 500.2500, L501.4020, L100.0100, L503.6620 ####[facility] [address] [place], [address] Chest 1 View (Portable)on Chest 1 View (Portable) [facility] Imaging Services [address] [place] [address] Chest 1 View (Portable) MR#: [id number] Acct: [id number] Name: MELCHOR LYLE Rep #: [id number] : 1960 M 63 From: Faustino Alanis PCP: [facility] Status: [facility] ER Study: Chest 1 View (Portable) Date of Exam: 05/27/24 Exam# [id number] Ordering Dr: Mike Headley DO [id number] INDICATION: cough/dyspnea EXAMINATION/TECHNIQU E: X-RAY - XR [...] EDT , CC: Dr. Mike Headley DO; [facility] Architect Intern: Signed Normal [facility] Emergency Department Summary on 05-27-2024 Emergency Department Summary [facility] Medical Records Department [address] [place] [address] Emergency Department Summary 05/27/24 MR#: [id number] Acct: [id number] Name: MELCHOR LYLE Rep #: [id number] : 1960 63 From: Mike Headley DO PCP: [facility] Status:ADM IN Location: [place] [address] HPI History of Present Illness Chief Complaint: [...] the past couple days. He sees the [facility] [place]. No vomiting or diarrhea. Denies any chest pain. [facility] Medical History Hypertension Home Medications ???Medication [...] intact bilaterally (more content not included)... Normal [facility] Gram Stainon 05-27-2024 GS Acceptable Specimen? Yes (<25 Epithelial cells per/lpf) Gram Stain 1+ White Blood Cells 2+ Epithelial cells 3+ Gram positive cocci in chains and clusters 1+ Gram positive rods 1+ Gram negative rods Normal [facility] Comment on above: Performed By: #### M 100.2400, M100.1999 ####[facility] [address] [facility] [place], [address] H AND P Exam - Hospitaliston 05-27-2024 H&P Exam - Hospitalist [facility] Medical Records Department [address] [place] [address] H P Exam - Hospitalist 05/27/24 1001 MR#: [id number] Acct: [id number] Name: MELCHOR LYLE Rep #: [id number] : 1960 63 From: Madiha Razo MD PCP: [facility] Status:ADM IN Location: [facility] [id number] HPI - General General Date of Admission: 05/27/24 Date of Service: 05/27/24 Chief Complaint: Increasing shortness of breath HPI Narrative MELCHOR LYLE, is a 63 M with seasonal allergies and hypertension as well as suspected COPD and tobacco use who presented to [facility] ED 05/27/2024 with increasing shortness of breath [...] denies any other new or acute complaints. [facility] Medical History Hypertension Home Medications ???Medication ???Instructions [...] edema Musc (more content not included)... Normal [facility] L501.4020on 05-27-2024 TROPONIN-I HS 5 pg/mL Normal 3.0-78.0 [facility] Comment on above: Order Comment: 'TROP ' Serial specimen #1, #2 or #3: 1 Result Comment: Michaelle michele Note: New Test Units and Gender Specific Reference Ranges. For more information see Policy Stat [facility] High Sensitivity Troponin (TNIH) and attachments. Performed By: #### L 500.2500, L501.4020, L100.0100, L503.6620 ####[facility] [address] [place], [address] M100.678on 05-27-2024 M100.678 Pending SARS-CoV-2 (COVID 19) Negative INFLUENZA A Negative INFLUENZA B Negative RSV PCR Negative Normal [facility] Comment on above: Performed By: #### M 100.678 ####[facility] [address] [place], [address] RESPIRATORY PANEL MOLECULARo n 05-27-2024 RP PANEL [...] Not Detected RSV B Not Detected Normal [facility] Comment on above: Performed By: #### M 100.638 #### [facility] [address] [place], [place], [address] Absolute lymphocyte countOrd ered By: White on 05-13-2023 Lymphocytes Auto (Unsp spec) [#/Vol] 0.84 10*3/uL 0.83-4.51 [facility] Basophil percentageOrdered B y: White on 05-13-2023 Basophils/100 WBC (Bld) 0.3 % 0-1 [facility] Bilirubin [Mass/Vol] 0.50 mg/dL 0.20-1.[address] [facility] Comment on above: For patients on eltr ombopag therapy, use of [facility] TBIL is not recommended. Chloride [Moles/Vol] 99 mmol/L 98-[address] [facility] Eosinophils/100 WBC (Bld) 0.0 % 0-5 [facility] Glucose [Mass/Vol] 148 mg/dL 74-106 [facility] Comment on above: Fasting Glucose resu lt greater than or equal to 126 mg/dL suggests DIABETES MELLITUS per A.D.A. criteria. Neutrophils (Bld) [#/Vol] 10.6 10*3/uL 2.0-7.7 [facility] Neutrophils/100 WBC (Bld) 90.1 % 47-70 [facility] Potassium [Moles/Vol] 4.5 mmol/L 3.5-5.1 [facility] Protein [Mass/Vol] 8.6 g/dL 6.4-8.2 [facility] Sodium [Moles/Vol] 135 mmol/L 136-145 [facility] WBC (Bld) [#/Vol] 11.7 10*3/uL 4.4-11.0 [facility] Blood erythrocytes count (nu mber/volume)Ordered By: Linsey Spivey on 05-13-2023 RBC (Bld) [#/Vol] 4.74 10*6/uL 4.6-6.2 [facility] Blood hemoglobin measurement (mass/volume)Ordered By: Linsey Spivey on 05-13-2023 Hemoglobin (Bld) [Mass/Vol] 15.4 g/dL 13.0-16.5 [facility] Blood lymphocytes/100 leukoc ytesOrdered By: Linsey Spivey on 05-13-2023 Lymphocytes/100 WBC (Bld) 7.2 % 19-41 [facility] Blood monocytes/100 leukocyt esOrdered By: Linsey Spivey on 05-13-2023 Monocytes/100 WBC (Bld) 1.5 % 0-10 [facility] Blood platelet mean volumeOr dered By: Linsey Spivey on 05-13-2023 Platelet mean volume (Bld) [Entitic vol] 9.6 fL 6.2-12.0 [facility] Determination of erythrocyte mean corpuscular volume (MCV)Ordered By: Linsey Spivey on 05-13-2023 MCV (RBC) [Entitic vol] 98.9 fL 80-94 [facility] Hematocrit Auto (Bld) [Volum e fraction]Ordered By: Linsey Spivey on 05-13-2023 Hematocrit (Bld) [Volume fraction] 46.9 % 40-54 [facility] Laboratory - Chemistry and C hemistry - challengeOrdered By: Linsey Spivey on 05-13-2023 ALP [Catalytic activity/Vol] 73 U/L 45-117 [facility] ALT [Catalytic activity/Vol] 38 U/L 16-61 [facility] CO2 [Moles/Vol] 28.0 mmol/L 21.0-32.0 [facility] Globulin (S) [Mass/Vol] 4.8 g/dL 2.2-4.2 [facility] Urea nitrogen/Creatinine [Mass ratio] 15.4 mg/mg 10-20 [facility] - Hematology and Cell countsOrdered By: Linsey Spivey on 05-13-2023 Erythrocyte distribution width (RBC) [Entitic vol] 48.9 fL 35.1-43.9 [facility] Erythrocyte distribution width (RBC) [Ratio] 13.4 % 11.6-14.6 [facility] Immature granulocytes/100 WBC (Bld) 0.900 % 0.0-0.9 [facility] Comment on above: IG% - Immature Granu locytes (promyelocytes, myelocytes and metamyelocytes) > 1% indicates that a LEFT SHIFT is Present. MCH (RBC) [Entitic mass] 32.5 pg 27.0-32.0 [facility] Nucleated RBC/100 WBC (Bld) [Ratio] 0 % 0-5 [facility] MCHC Auto (RBC) [Mass/Vol]Or dered By: Linsey Spivey on 05-13-2023 MCHC (RBC) [Mass/Vol] 32.8 g/dL 32-36 [facility] No Panel InformationOrdered By: Linsey Spivey on 05-13-2023 Estimated Creatinine Clearance Calc 66.92 ml/min [facility] Estimated GFR (MDRD) Amer 100 mL/min >60 [facility] Comment on above: GFR Calc Estimated GFR (MDRD) Non-Af Amer 82 mL/min >60 [facility] Comment on above: Non- GFR Calc Platelets bldOrdered By: Abraham Spivey on 05-13-2023 Platelets (Bld) [#/Vol] 300 10*3/uL 150-450 [facility] Serum or plasma albumin doni urement (mass/volume)Ordered By: Linsey Spivey on 05-13-2023 Albumin [Mass/Vol] 3.8 g/dL 3.2-5.0 [facility] Serum or plasma albumin/glob ulin mass ratioOrdered By: Linsey Spivey on 05-13-2023 Albumin/Globulin [Mass ratio] 0.8 {ratio} 0.9-2.4 [facility] Serum or plasma calcium doni urement (mass/volume)Ordered By: Linsey Spivey on 05-13-2023 Calcium [Mass/Vol] 9.4 mg/dL 8.5-10.1 [facility] Serum or plasma creatinine m easurement (mass/volume)Ordered By: Linsey Spivey on 05-13-2023 Creatinine [Mass/Vol] 0.97 mg/dL 0.70-1.30 [facility] Comment on above: The validity of the calculated GFR & GFRAA in patients over 70 years has not been determined. Clinical correlation is essential. Serum or plasma urea nitroge n measurement (mass/volume)Ordered By: Linsey Spivey on 05-13-2023 Urea nitrogen [Mass/Vol] 15 mg/dL 7-18 [facility] Thin prep Papanicolaou smear with manual screeningOrdered By: Linsey Spivey on 05-13-2023 Thin prep Papanicolaou smear with manual screening 20 U/L 15-37 [facility] Thin prep Papanicolaou smear with manual screening 8 5-15 [facility] Gram stain for investigation of transfusion reactionOrdered By: Chino Sandoval on 05-12-2023 Microscopic observation Gram stain Nom (Unsp spec) [facility] Serum procalcitonin measurem entOrdered By: Linsey Spivey on 05-12-2023 Procalcitonin [Mass/Vol] 0.10 ng/mL 0.00-0.09 [facility] Comment on above: A procalcitonin (PCT ) [...] INR Coag (Bld) [Relative time] 1.0 {INR} [facility] Laboratory - CoagulationOrde red By: Frederick Cervantes on 05-11-2023 aPTT Coag (Bld) [Time] 26.3 s 24.1-36.2 [facility] PT Coag (PPP) [Time] 13.2 s 11.7-14.[address] [facility] No Panel InformationOrdered By: Frederick Cervantes on 05-11-2023 Troponin I High Sensitivity 4 pg/mL 3.0-78.0 [facility] Comment on above: Please Note: New Valeria t Units and Gender Specific Reference Ranges. For more information see Policy Stat Procedure [facility] High Sensitivity Troponin (TNIH) and attachments. D-Dimer Quantitative (PE/DVT) 0.33 FEU/ug/m 0.27-0.49 [facility] Comment on above: NORMAL D-Dimer level (<0.50) indicates no DVT or PE. Vital Signs Date Time Vital Sign Value Performing Clinician Jassii lity 05-13-2023 12:08-0400 SaO2% (BldA) [Mass fraction] 91 % [facility] 05-13-2023 11:17-0400 Heart rate 89 /min [facility] 05-13-2023 11:17-0400 Respiratory rate 20 /min [facility] 05-13-2023 09:05-0400 Inhaled oxygen flow rate 2 L/min [facility] 05-13-2023 09:04-0400 Body temperature 98.3 [degF] [facility] 05-13-2023 09:04-0400 Diastolic blood pressure 72 mm[Hg] [facility] 05-13-2023 09:04-0400 Systolic blood pressure 143 mm[Hg] [facility] 05-11-2023 20:15-0400 Body height 165.1 cm [facility] 05-11-2023 20:15-0400 Body mass index (BMI) [Ratio] 31.1 kg/m2 [facility] 05-11-2023 20:15-0400 Body weight 84.8 kg [facility] Encounters Encounter Date Encounter Type Care Provider Facility Start: 05-27-2024 End: 05-29-2024 Evaluation and management of inpatient Madiha Razo Facility:[facility] Start: 05-27-2024 ambulatory Madiha Razo Facility:[facility] Start: 05-13-2023 Non-patient / Non-visit [facility] Work Phone: Start: 05-12-2023 Non-patient / Non-visit [facility] Start: 05-12-2023 End: 05-13-2023 Evaluation and management of inpatient [facility] Work Phone: Start: 05-11-2023 Non-patient / Non-visit [facility] Work Phone: Procedures Date Procedure Procedure Detail Performing Clinician Start: 05-12-2023 Investigation of tra nsfusion reaction [facility] Start: 05-11-2023 Plain chest X-ray [facility] Plan of Treatment Date Care Activity Detail Author Start: 05-13-2023 Patient discharge [facility] Start: 05-13-2023 [facility] Start: 05-13-2023 Physiotherapy of chest [facility] Start: 05-12-2023 Respiratory Culture Respiratory Culture [facility] Start: 05-12-2023 Admission procedure [facility] Start: 05-11-2023 Following clinical pathway protocol [facility] Start: 05-11-2023 Ambulation without limitation [facility] Start: 05-11-2023 Assessment of risk of venous thromboembolism [facility] Start: 05-11-2023 Insertion of catheter into peripheral vein [facility] Start: 05-11-2023 Oxygen therapy [facility] Start: 05-11-2023 Providing care according to standard [facility] Start: 05-11-2023 Referral to occupational therapist [facility] Start: 05-11-2023 Referral to service [facility] Start: 05-11-2023 [facility] Start: 05-11-2023 Admission procedure [facility] Start: 05-11-2023 Consultation [facility] Start: 05-11-2023 Inhalation therapy procedure [facility] Bacteria identified in Unspecified specimen by Respiratory culture [facility] Patient Education Chronic Lung D isease Infections Discharge Instructions: COPD [facility] Work Phone: Patient referral [facility] Work Phone: Payers Date Payer Category Payer Self-pay 2024 Unknown [id number] Medicare MEDICARE PART A B [id number] Unknown [id number] [id number] Unknown [id number] [id number] [id number] Unknown [id number] [id number] [id number] Unknown [id number] [id number] [id number] Social History Date Type Detail Facility Start: 05-12-2023 Tobacco smoking stat [facility] Unknown if ever smoked [facility] Start: 1960 Sex Assigned At Male [facility] Goals Date Patient Goal Desired Activity /State Functional Status Date Assessment Result Facility 05-13-2023 Functional status Ambulates [facility] Work Phone: Mental Status Date Assessment Result Facility 05-13-2023 Cognitive function Voice/Name [facility] Work Phone: Discharge summary note 05-29-2024 Note Date & Type Note Facility 05-29-2024 Note [facility] Medical Records Department [address] [place] [address] Discharge Summary 05/29/24 1252 MR#: [id number] Acct: [id number] Name: MELCHOR LYLE Rep #: [id number] : 1960 63 From: Madiha Razo MD PCP: [facility] Status:DIS IN Location: [facility] [id number] Providers Date of Admission: 05/27/24 Date of Discharge: 05/29/24 Primary Care Physician[facility] Reason For Visit: COPD EXACERBATION Diagnosis [...] COPD and tobacco use who presented to [facility] ED 05/27/2024 with increasing shortness of breath [...] -For your continued congestion please obtain Mucinex tdut-bej-moutxqm to help with your congestion symptoms -Continue [...] 89.1 H, Lymph % (Auto) 6.7 L, Harney % (Auto) 3.0, Eos % (Auto) 0.0, [...] Final 05/27/24 1 (more content not included)... [facility] Progress note 05-13-2023 Note Date & Type Note Facility 05-13-2023 Progress note Note Date/Time May 13, 2023 6:22am [facility] Medical Records Department [address] [place] [address] Progress Note - Hospitalist 05/13/23620 MR#: [id number] Acct: [id number] Name: MELCHOR LYLE Rep #:[id number] : 1960 62 From: Linsey Spivey MD PCP: [facility] Status:ADM IN Location: [place] [id number] Reason for Visit Reason for Visit: Diagnoses [...] 3 to 5 daysbut did request that [facility] be notified to facilitate further earlier follow-up. [...] use/Pipe Tobacco use who presents to the [facility] ED on 05/11/23 with dyspnea and wheezing [...] Patient reportedly living with his sister and pevdbjz-cb-efy, notable poor hygiene in the ED with concern for bedbugs, case management/social work involved for discharge planning, PT and OT assessments also. #5. Tobacco Abuse: Encouraged cessation, inpatient consultation per RT, NR if desired. #6. DVT prophylaxis: Lovenox. #7. CODE STATUS: Full code. Charges/Coding Visit Charges Inpatient E&M: 54968 Subs Hosp L2 05/13/23 1217 <Electronically signed by Linsey Spivey MD> Cosigner Signature (if applicable): CC: ~ Signed [facility] Work Phone: Progress note 05-12-2023 Note Date & Type Note Facility 05-12-2023 Progress note Note Date/Time May 12, 2023 7:04am [facility] Medical Records Department [address] [place] [address] Progress Note - Hospitalist 05/12/23 0704 MR#: [id number] Acct: [id number] Name: MELCHOR LYLE Rep #:[id number] : 1960 62 From: Linsey Spivey MD PCP: [facility] Status:ADM IN Location: [place] [address] Reason for Visit Reason for Visit: Diagnoses [...] (Auto) 65.2, Lymph % (Auto) 17.7 L, Harney % (Auto) 8.6, Eos % (Auto) 7.0 [...] x 3 and cooperative, seated upright in MD bed, fatigued but notes feeling improved since [...] use/Pipe Tobacco use who presents to the [facility] ED on 05/11/23 with dyspnea and wheezing [...] Patient reportedly living with his sister and [id number], notable poor hygiene in the ED with concern for bedbugs, case management/social work involved for discharge planning, PT and OT assessments also. #5. Tobacco Abuse: Encouraged cessation, inpatient consultation per RT, NR if desired. #6. DVT prophylaxis: Lovenox. #7. CODE STATUS: Full code. Charges/Coding Visit Charges Inpatient E&M: 75097 Subs Hosp L2 05/12/23 1543 <Electronically signed by Linsey Spivey MD> Adán Signature (if applicable): CC: ~ Signed [facility] Work Phone: Discharge summary 05-12-2023 Note Date & Type Note Facility 05-12-2023 Discharge summary Note Date/Time May 11, 2023 1:42pm [facility] Medical Records Department [address] [place] [address] Emergency Department Summary 05/11/23 MR#: [id number] Acct: [id number] Name: MELCHOR LYLE Rep #:[id number] : 1960 62 From: Frederick Lucia PCP: [facility] Status:ADM LYLA Location: [place] [address] HPI History of Present Illness Chief Complaint: [...] Recent immobilization, Recent surgery or Recent travel [facility] Medical History Hypertension Home Medications diphenhydramine [...] (Auto) 65.2 Lymph % (Auto) 17.7 L Harney % (Auto) 8.6 Eos % (Auto) 7.0 [...] sinus rhythm with a rate of 82. [place] interval, QRS interval, and QTc intervals were all normal. Graham was normal. There are no acute ST [...] pulmonary disease Disposition Disposition: Acute Care Hospital [facility] Discharge Date/Time: 05/11/23 19:34 What to do if you have Problems For any increased pain, shortness of breath, bleeding, nausea or vomiting, chestpain, or any unexpected problems, contact your Primary Care Provider. Call [facility] ([phone]) or report to the closest Emergency Room. Call 911 if necessary. 05/12/23 0050 <Electronically signed by Frederick Cervantes DO> Cosigner Signature (if applicable): CC: [facility] ~ Signed [facility] Work Phone: History and physical note 05-12-2023 Note Date & Type Note Facility 05-12-2023 History and physi rick note Note Date/Time May 11, 2023 4:58pm [facility] Medical Records Department [address] [place] [address] H&P Exam - Hospitalist 05/11/23 1657 MR#: [id number] Acct: [id number] Name: MELCHOR LYLE Rep #:[id number] : 1960 62 From: Chino castano DO PCP: [facility] Status:ADM LYLA Location: [place] [id number] HPI - General General Date of Admission: 05/11/23 Date of Service: 05/11/23 Chief Complaint: Shortness of breath, wheezing HPI Narrative MELCHOR LYLE is a 62 M with history of tobacco use and hypertension who presented to [facility] ED on 05/11/2023 with worsening shortness of [...] interstitial prominence, no focal consolidationor acute findings. [facility] Medical History Hypertension Home Medications diphenhydramine HCl [...] (Auto) 65.2, Lymph % (Auto) 17.7 L, Harney % (Auto) 8.6, Eos % (Auto) 7.0 [...] tobacco use and hypertension who presented to [facility] ED on 05/11/2023 with worsening shortness of [...] Patient reportedly lives with his sister and [id number]. His sister has severe COPD and wears chronic oxygen at home. [id number] does a lot of tasks around the [...] 55 minutes. Charges/Coding Visit Charges Inpatient E&M: 12277 Init Hosp L2 05/11/239 <Electronically signed by Chino aSndoval DO> Cosigner Signature (if applicable): CC: Dr. Chino Sandoval DO; [facility]~ Signed [facility] Work Phone: Discharge summary Note Date & Type Note Facility Discharge summary Note Date/Time May 13, 2023 12:12pm [facility] Medical Records Department [address] [place] [address] Instructions for Home/Discharge Instructions 05/13/23 1211 MR#: [id number] Acct: [id number] Name: MELCHOR LYLE Rep #:[id number] : 1960 62 From: Linsey Spivey MD PCP: [place] Status:ADM IN Discharge Instructions Diet Discharge [...] Attending Provider: Linsey Spivey Primary Care Provider: [place] Consulting Providers: Chino Sandoval Instructions Patient [...] Spivey MD CC: Dr. Chino Sandoval DO; [facility] ~ Signed ADDENDUM by Dr. Linsey Spivey MD on 05/13/23 at 1219 ECHO resulted prior to discharge with noted LVEF 65%, mild 1+ at MARY, mildly dilated aortic root. 05/13/23 1219<Electronically signed by Linsey Spivey MD>Linsey Spivey MD cc: Dr. Chino Sandoval, DO; [facility] ~* Signed [facility] Work Phone: Discharge summary Note Date & Type Note Facility Discharge summary Note Date/Time May 13, 2023 12:18pm [facility] Medical Records Department [address] [place] [address] Discharge Summary 05/13/231216 MR#: [id number] Acct: [id number] Name: MELCHOR LYLE Rep #:[id number] : 1960 62 From: Linsey Spivey MD PCP: [place] Status:ADM IN Location: [place] [id number] Providers Date of Admission: 05/12/23 Date of Discharge: 05/13/23 [facility] Physician: [facility] Reason For Visit: COPD EXACERBATION Diagnosis [...] use/Pipe Tobacco use who presented to the [facility] ED on 05/11/23 with dyspnea and wheezing [...] 90.1 H, Lymph % (Auto) 7.2 L, Harney % (Auto) 1.5, Eos % (Auto) 0.0, [...] Attending Provider: Linsey Spivey Primary Care Provider: [facility] Consulting Providers: Chino Sandoval Instructions Patient Instructions: [...] mg PO DAILY Referrals / Follow Up: [facility] [Primary Care Provider] - (Please follow-up within 3-5 days to review admission.) Disposition Disposition (needs filled in before D/C Order can be placed): Home, Self Care Charges/Coding Visit Charges Inpatient E&M: 88927 Disch Hosp >30min 05/13/23 1222 <Electronically signed by Linsey Spivey MD> Cosigner Signature (if applicable): CC: Dr. Linsey Spivey MD; [facility]~ Signed [facility] Work Phone: Evaluation note Note Date & Type Note Facility Evaluation note Diagnosis Onset Date Hypoxia acute Acute exacerbation of chroni c obstructive pulmonary disease [facility] Work Phone: Chief Complaint and Reason for Visit Chief Complaint COPD EXACERBATION COPD EXACERBATION COPD EXACERBATION Reason for Visit Hypoxia Acute exacerbation of chronic obstructive pulmonary disease Advance Directives No Advanced Directives Records Found Advance Directive Response Recorded Date/ Time Living Will No May 11 3 8:15pm Power of Basic Sciences Professor No May 11 023 8:15pm Summary Purpose Family History No Family History Records Found Additional Source Comments Care Teams (unrecognized sec tion and content) Team Status: Active Member Role Status Dates [facility] Primary Care Provider Active Team Status: Active Member Role Status Dates [facility] Primary Care Provider Active Dr. Frederick Cervantes DO Emergency Provider Active Dr. Chino Sandoval DO Admit Provi lynne, Attending Provider, Other Provider Active Team Status: Active Member Role Status Dates [facility] Primary Care Provider Active Dr. Tay Huggins MD Attending Provider Active Team Status: Active Member Role Status Dates [facility] Primary Care Provider Active Dr. Fredercik Cervantes DO Emergency Provider Active Dr. Chino Sandoval DO Admit Provider, Other Pro vider Active Dr. Linsey Spivey MD Attending Provider, Other Prov ider Active Team Status: Inactive Member Role Status Dates [facility] Primary Care Provider Active Dr. Frederick Cervantes , Emergency Provider Active Dr. Chino Sandoval , DO Admit Provider, Other Pro vider Active Dr. Linsey Spivey MD Attending Provider Active (unrecognized sect ion and content) No Status Records Found INFORMATION SOURCE (unrecogn ized section and content) DATE CREATED AUTHOR 06/21/2024 [facility] FOR RECORDS PERTAINING TO PATIENTS WHO [...] BE BASED ON THE PRIMARY CLINICAL RECORDS. [employer] provides no warranty or guarantee of the accuracy or completeness of information in this document.
[2025-04-20] MEDS: Albuterol 2.5 MG/3 ML VIAL.NEB. INHALATION (16:34)
[2025-04-20 18:03] LABS: Troponin T High Sensitivity < 6 ng/L (<=22)
[2025-04-20] MEDS: Ensure Plus High Protein 120 ML LIQUID PO (18:34)
[2025-04-20] MEDS: 0.9% Saline Lock 10 ML Syringe IV (21:24)
[2025-04-21] VITALS (10 sets, daily range): BP systolic 140–148; BP diastolic 69–80; PULSE 71–99; RESP 16–24; TEMP 36.2–36.9; O2SAT 90–98; BMI 30.9
[2025-04-21] MEDS: 0.9% Saline Lock 10 ML Syringe IV ×2 (05:30→21:34)
[2025-04-21 06:14] LABS: Hematocrit 43.5 % (40-54); Hemoglobin 14.7 g/dL (13.0-16.5); Immature Granulocytes Count 0.080 X10^3/uL (0.0-0.0); Mean Corp Hgb Conc 33.8 g/dL (32-36); Mean Corpuscular Volume 95.2 fL (80-94); Mean Platelet Vol. 9.7 fl (6.2-12.0); NRBC Flagged by Analyzer 0 % (0-5); Platelet Count 373 K/mm3 (150-450); RBC Distribution Width CV 13.0 % (11.6-14.6); RBC Distribution Width SD 45.0 fl (35.1-43.9); Red Blood Count 4.57 M/mm3 (4.6-6.2); White Blood Count 14.3 K/mm3 (4.4-11.0)
[2025-04-21 06:49] LABS: Anion Gap 15 (5-15); BUN 25 mg/dL (4-19); BUN/Creat Ratio 24.6 RATIO (10-20); Calcium,Total 9.1 mg/dL (7.6-11.0); Carbon Dioxide 21.4 mmol/L (21.0-32.0); Chloride 97 mmol/L (98-108); Estimated Creatinine Clearance 71.72 ml/min (50-250); Glucose 174 mg/dL (70-99); Potassium 4.2 mmol/L (3.3-5.1)
[2025-04-21] MEDS: Ensure Plus High Protein 120 ML LIQUID PO ×3 (09:32→19:03)
--- NOTE | 2025-04-21 10:54 | PN.HOSP_ITS ---
Reason for Visit Chief Complaint: Increasing SOB Subjective Subjective Saw patient at bedside this morning. Patient was sitting back comfortably in bed, conversing normally and in no acute distress. He was breathing comfortably on 3 L nasal cannula at rest. He stated that he felt moderately improved today compared to yesterday. Noted that with prior COPD exacerbations it has taken 3 to 4 days in the hospital for him to get back close to his baseline. No other new concerns this morning. Objective Data Objective Data Vital Signs: Vital Signs Temp Pulse Resp BP Pulse Ox O2 Del Method O2 Flow Rate 97.3 F L 93 18 140/80 H 94 Nasal Cannula 3 04/21/25 09:23 04/21/25 09:23 04/21/25 09:23 04/21/25 09:23 04/21/25 09:23 04/21/25 09:23 04/21/25 09:23 Oxygen Flow Rate (L/min) 3 Oxygen Delivery Method Nasal Cannula Weight: 85.7 kg Body Mass Index (BMI) 30.9 Lab / Micro Data 04/21/25 05:30 04/21/25 05:30 Labs: Laboratory Results - last 24 hr 04/20/25 12:25: WBC 13.6 H, RBC 4.93, Hgb 15.9, Hct 46.4, MCV 94.1 H, MCH 32.3 H , MCHC 34.3, RDW Std Deviation 44.8 H, RDW Coeff of Monica 13.1, Plt Count 334, MPV 9.3, Immature Gran % (Auto) 0.400, Neut % (Auto) 80.1 H, Lymph % (Auto) 9.1 L, [place] % (Auto) 7.4, Eos % (Auto) 2.3, Baso % (Auto) 0.7, Absolute Neuts (auto) 10.9 H, Absolute Lymphs (auto) 1.24, Nucleated RBC % 0, Sodium 133, Potassium 4.4, Chloride 95 L, Carbon Dioxide 22.7, Anion Gap 15, BUN 15, Creatinine 1.01, Estim Creat Clear Calc 74.63, Est GFR (MDRD) Non-Af 82, BUN/Creatinine Ratio 15.2, Glucose 116 H, Calcium 9.3, Troponin T High Sens < 6 04/20/25 14:40: Troponin T Hi Sens 2 Hr 7 04/20/25 17:30: Troponin T High Sens < 6 04/21/25 05:30: WBC 14.3 H, RBC 4.57 L, Hgb 14.7, Hct 43.5, MCV 95.2 H, MCH 32.2 H, MCHC 33.8, RDW Std Deviation 45.0 H, RDW Coeff of Monica 13.0, Plt Count 373, MPV 9.7, Immature Gran % (Auto) 0.600, Neut % (Auto) 90.8 H, Lymph % (Auto) 6.4 L, [place] % (Auto) 2.0, Eos % (Auto) 0.1, Baso % (Auto) 0.1, Absolute Neuts (auto) 13.0 H, Absolute Lymphs (auto) 0.91, Nucleated RBC % 0, Sodium 133, Potassium 4.2, Chloride 97 L, Carbon Dioxide 21.4, Anion Gap 15, BUN 25 H, Creatinine 1.02, Estim Creat Clear Calc 71.72, Est GFR (MDRD) Non-Af 81, BUN/Creatinine Ratio 24.6 H, Glucose 174 H, Calcium 9.1 Micro: Microbiology 04/20/25 18:50 Sputum, Expectorated/Coughed Gram Stain - Final 04/20/25 16:27 Mucosa - Nose Respiratory Panel (PCR) - Final 04/20/25 12:45 Mucosa - Nose SARS-CoV-2, Influenza & RSV (PCR) - Final ABG Data ABG results: ABG 04/20/25 12:54 Specimen Type NIRMAL Sample Site Not entered VBG pH 7.40 VBG pO2 80 H VBG HCO3 29 H VBG Total CO2 30 VBG O2 Sat (Calc) 96 H VBG Base Excess 4 H POC Mix VBG pCO2 Pt Tmp 46.3 O2 Delivery Device Not entered Radiography Diagnostic Testing: Radiology Impression Chest X-Ray 04/20/25 12:14 IMPRESSION: No Acute Findings. Reading Location: [id number] Physical Exam Const alert, oriented x3 and no apparent distress Constitutional Narrative: Elderly male, class I obesity, mildly fatigued appearing and somewhat unkempt appearing, otherwise sitting back comfortably in bed, conversing normally, in no acute distress. General Appearance: cooperative and comfortable HEENT normocephalic, head/scalp atraumatic, hearing grossly normal bilaterally, nasal mucous membranes and turbinates normal and moist oral mucous membranes Eyes PERRL, EOMs intact bilaterally and conjunctivae normal Neck full ROM Chest inspection of chest normal Resp normal respiratory effort and no use of accessory muscles Resp Narrative: Breathing comfortably on 3 L nasal cannula at rest. Diminished breath sounds bilaterally throughout but with fairly good air movement and no wheezing noted. Improving. Cardio regular rate, regular rhythm, no murmurs and peripheral pulses 2+ throughout GI normal to inspection, nondistended, normoactive bowel sounds, soft to palpation, non-tender and non-distended Back/Spine normal ROM Extremity normal to inspection, full ROM and no pedal edema Skin no rashes or lesions noted Psych mental status grossly normal Assessment & Plan Assessment/Plan (1) Hypoxia: (2) Acute exacerbation of chronic obstructive pulmonary disease (COPD): PLAN: Plan Patient is a 64-year-old male who presented to [facility] ED on 04/21/2025 with worsening shortness of breath and cough. 1. Acute hypoxia secondary to acute exacerbation of COPD ? Not on home oxygen. Was 86% on room air on admit and was in respiratory distress with increased work of breathing. Chest x-ray unremarkable. Respiratory PCR panel negative. Sputum culture pending. Patient with good improvement on IV steroids, scheduled DuoNebs and IV azithromycin. Continue to wean supplemental oxygen as able. Notably has been hospitalized here twice in the past few years for COPD exacerbations. Follows with the [facility]. Oxygen saturations typically run in the low 90s at rest and drop to the mid to high 80s with exertion at home. Has previously been discharged with home oxygen but due to high cost ([facility] did not cover as he is a current smoker) he stopped wearing it, and he may refuse to wear it again on this discharge. Case management following for assistance. 2. Hypertension ? Mildly hypertensive on admit. Continue home amlodipine and losartan. 3. Seasonal allergies ? Continue Benadryl at night as needed. 4. Tobacco dependence ? Current smoker. Denied need for nicotine replacement therapy while inpatient. Strongly advised cessation on discharge. DVT prophylaxis: Lovenox CODE STATUS: DNR-CCA, okay to intubate Expected disposition: Home, 1 to 2 days Total clinical time spent by myself addressing the patient's medical issues, reviewing all the data, and collaborating with patient's care team: 35 minutes. Charges/Coding Visit Charges Inpatient E&M: 86082 Subs Hosp L2
--- NOTE | 2025-04-21 15:20 | CHAPLAIN ---
Type of Pastoral Visit _x__ Initial Visit ___ Follow-up Visit ___ On-call Visit ___ General Patient Visit ___ Spiritual Assessment ___ Family Conference ___ Bereavement ___ Rapid Response ___ Code Blue ___ Other (describe below) Pastoral Care Referral From _x__ Patient ___ Family ___ Nurse ___ Physician ___ Stem Maker ___ Home Decorator ___ Other (describe below) Sacrament/Intervention _x__ Active listening ___ Anointing ___ Sabianism ___ Bereavement ___ Communion _x__ Aisa exploration ___ _x__ Life review _x__ Prayer ___ Reconciliation ___ Sacrament of Sick ___ Supportive presence ___ Wedding ___ Other (describe below) Pastoral Comments patient is welcoming and talkative; pt gives some life review and the family goal of paying off the mortgage of parents home as they live in it past parents ; pt has theory on why he gets sick this time of year now for several years; pt has limited family support; pt has philosophical ideas on purpose and meaning in life; pt accepts a prayer
--- NOTE | 2025-04-21 15:36 | CASEMGMT ---
Social Work Brief Note Date: 04/21/25 Time: 1420 Sw presented to bedside and introduced self to patient. Sw assisted patient in completing Social Determinants of Health. Patient reports that he currently resides with his sister and her in his mother's home. He and his sister are in the process of paying off the mortgage and then hope to sell the home. Patient states that they have bed bugs in the home, but are working on getting that eradicated. Patient reports that transportation is not a problem. Patient states that food has not been a hard ship until their utility expenses have increased over the past couple of months. Resources provided to patient (food resources, Wire card, etc.) Patient expressed appreciation. Bob Mitchell, DIGITAL CONTENT SPECIALIST, PLASTIC WELDER
[2025-04-22] VITALS (7 sets, daily range): BP systolic 125–150; BP diastolic 70–77; PULSE 69–102; RESP 16–22; TEMP 36.1–36.8; O2SAT 87–99; BMI 32.3
[2025-04-22] MEDS: 0.9% Saline Lock 10 ML Syringe IV (05:52)
--- NOTE | 2025-04-22 09:12 | DS.PCM_ITS ---
Providers Date of Admission: 04/20/25 Date of Discharge: 04/22/25 Primary Care Physician: [facility] Reason For Visit: HYPXIA AND COPD EXACERBATION Diagnosis Discharge Diagnosis (1) Hypoxia: Status: Acute Code(s): R09.02 - Hypoxemia (2) Acute exacerbation of chronic obstructive pulmonary disease (COPD): Status: Chronic Code(s): J44.1 - Chronic obstructive pulmonary disease with (acute) exacerbation Medications at Discharge Home Medications diphenhydramine HCl 25 mg tablet (Allergy) 50 mg PO BID PRN ALLERGIES 05/11/23 losartan 50 mg tablet (Cozaar) 50 mg PO DAILY BLOOD PRESSURE 05/11/23 albuterol sulfate 90 mcg/actuation breath activated powder inhaler 2 inh inhalation Q4H PRN SHORTNESS OF BREATH #1 ea 05/13/23 amlodipine 5 mg tablet 5 mg PO DAILY BLOOD PRESSURE 05/27/24 azithromycin 250 mg tablet 500 mg (2 x 250 mg) PO Q24 5 days #10 tabs 04/22/25 guaifenesin 1,200 mg tablet, extended release 12 hr (Mucus Relief ER) 1,200 mg PO BID #20 tabs 04/22/25 prednisone 20 mg tablet 20 mg PO BID #20 tabs 04/22/25 Hospital Course Summary of Care Provided Minutes Spent on Discharge: 35 Hospital Course: Patient is a 64-year-old male who presented to [facility] ED on 04/21/2025 with worsening shortness of breath and cough. 1. Acute hypoxia secondary to acute exacerbation of COPD ?Admitted to a monitored bed managed with bronchodilator treatment systemic steroid and antibiotics. Patient oxygen saturation on admission was 86% on room air. Patient had previously been discharged home with home oxygen however due to high cost ([facility] did not, with patient continuous use of tobacco) patient refused oxygen on discharge. Case management subsequently consulted ? Patient was assessed for home oxygen which he qualified he however declined to be discharged with oxygen 2. Hypertension ? Blood pressure controlled, home medications continued with dose adjustment as needed 3. Tobacco dependence ? Counseled on cessation, offered nicotine patch for tobacco cravings 4. Seasonal allergies ? Continue Benadryl at night as needed. 5. DVT prophylaxis: Lovenox Physical Exam Narrative GENERAL: cooperative HEENT: Atraumatic; normocephalic EYES; Anicteric, Normal Conjunctiva NECK; supple, normal thyroid, RESPIRATORY: Diminished to auscultation CARDIOVASCULAR: Regular S1 S2, GI: soft, normoactive bowel sounds, : No Renal angle tenderness; EXTREMITIES: No edema, no clubbing, MUSCULOSKELETAL: no muscle wasting NEURO: Awake; no lateralizing signs. SKIN: No Rash PSYCH; Flat affect Weight / BMI Weight Weight: 89.5 kg Body Mass Index (BMI) 32.3 ABG / Lab / Microbiology Data 04/21/25 05:30 04/21/25 05:30 Microbiology: Microbiology 04/20/25 18:50 Sputum, Expectorated/Coughed Gram Stain - Final 04/20/25 16:27 Mucosa - Nose Respiratory Panel (PCR) - Final 04/20/25 12:45 Mucosa - Nose SARS-CoV-2, Influenza & RSV (PCR) - Final D/C Instructions DC O2, CPAP, BIPAP Needs Home O2 Discharge instructions: Yes Type of respiratory needs?: Oxygen Oxygen frequency: With Ambulation Oxygen liters per minute during Ambulation: 3 DC home with Oxygen: Yes Home O2 MD Review: I have reviewed the oxygen testing, and the patient qualifies for home oxygen equipment and portability. The patient is mobile in the home and the community. Patient declined home oxygen despite qualifying Meaningful Use Info Meaningful Use Meaningful Use Diagnoses (Choose all that apply): None applicable Discharge Plan Admission Admit Date/Time: 04/20/25 14:34 Attending Provider: Luis Hernandez Primary Care Provider: [facility] Consulting Providers: Madiha Razo; Chino Sandoval Discharge Orders/Prescriptions Prescriptions: New azithromycin 250 mg Tablet 500 mg PO Q24 5 Days Qty: 10 0RF guaifenesin [Mucus Relief ER] 1,200 mg Tablet Extended Release 12hr 1,200 mg PO BID Qty: 20 0RF prednisone 20 mg tablet 20 mg PO BID Qty: 20 0RF Continued diphenhydramine HCl [Allergy] 25 mg tablet 50 mg PO BID PRN losartan [Cozaar] 50 mg tablet 50 mg PO DAILY albuterol sulfate 90 mcg/actuation aerosol powdr breath activated 2 inh inhalation Q4H PRN (Reason: SHORTNESS OF BREATH ) Qty: 1 0RF amlodipine 5 mg Tablet 5 mg PO DAILY Referrals / Follow Up: [facility] [Primary Care Provider] - Disposition Disposition (needs filled in before D/C Order can be placed): Home, Self Care Charges/Coding Visit Charges Inpatient E&M: 41170 Disch Hosp >30min
[2025-04-22] MEDS: Ensure Plus High Protein 120 ML LIQUID PO ×2 (09:15→11:12)
--- NOTE | 2025-04-22 10:58 | PCM.PN.HOSP ---
Reason for Visit Chief Complaint: Increasing SOB Subjective Subjective Patient is a 64-year-old male who presented to [facility] ED on 04/21/2025 with worsening shortness of breath and cough. Objective Data Objective Data Vital Signs: Vital Signs Temp Pulse Resp BP Pulse Ox O2 Del Method O2 Flow Rate 97.7 F L 69 16 134/70 H 99 Nasal Cannula 3 04/22/25 09:13 04/22/25 09:13 04/22/25 09:13 04/22/25 09:13 04/22/25 09:13 04/22/25 09:13 04/22/25 09:13 Oxygen Flow Rate (L/min) 3 Oxygen Delivery Method Nasal Cannula Weight: 89.5 kg Body Mass Index (BMI) 32.3 Intake & Output: Intake and Output for Last 24 Hours 04/20/25 04/21/25 04/22/25 23:59 23:59 23:59 Intake Total 600 / 600 400 / 400 Balance 600 / 600 400 / 400 Lab / Micro Data 04/21/25 05:30 04/21/25 05:30 Micro: Microbiology 04/20/25 18:50 Sputum, Expectorated/Coughed Gram Stain - Final 04/20/25 16:27 Mucosa - Nose Respiratory Panel (PCR) - Final 04/20/25 12:45 Mucosa - Nose SARS-CoV-2, Influenza & RSV (PCR) - Final Physical Exam Narrative GENERAL: cooperative HEENT: Atraumatic; normocephalic EYES; Anicteric, Normal Conjunctiva NECK; supple, normal thyroid, RESPIRATORY: Diminished to auscultation CARDIOVASCULAR: Regular S1 S2, GI: soft, normoactive bowel sounds, : No Renal angle tenderness; EXTREMITIES: No edema, no clubbing, MUSCULOSKELETAL: no muscle wasting NEURO: Awake; no lateralizing signs. SKIN: No Rash PSYCH; Flat affect Assessment & Plan Assessment/Plan (1) Hypoxia: (2) Acute exacerbation of chronic obstructive pulmonary disease (COPD): PLAN: Plan Patient is a 64-year-old male who presented to [facility] ED on 04/21/2025 with worsening shortness of breath and cough. 1. Acute hypoxia secondary to acute exacerbation of COPD ?Admitted to a monitored bed managed with bronchodilator treatment systemic steroid and antibiotics. Patient oxygen saturation on admission was 86% on room air. Patient had previously been discharged home with home oxygen however due to high cost ([facility] did not, with patient continuous use of tobacco) patient refused oxygen on discharge. Case management subsequently consulted ? Plan was for patient to be discharged home today however he declined discharge stating he did not feel ready 2. Hypertension ? Blood pressure controlled, home medications continued with dose adjustment as needed 3. Tobacco dependence ? Counseled on cessation, offered nicotine patch for tobacco cravings 4. Seasonal allergies ? Continue Benadryl at night as needed. 5. DVT prophylaxis: Lovenox Time spent in the patient's overall evaluation,decision-making process, review of diagnostic data, adjustment of management, discussion with other providers, nursing nursing and ancillary staff involved in patient's care documentation, 36 Minutes Charges/Coding Visit Charges Inpatient E&M: 33415 Subs Hosp L2 Reason for DC delay: Pt / family delay
--- NOTE | 2025-04-22 11:04 | PHA.DC.MC.R ---
Pharmacy [facility] Counseling Pharmacy Service has performed discharge medication reconciliation and counseling for this patient. 1. AZITHROMYCIN 500MG PO DAILY X 5 DAYS 2. GUAIFENESIN 1200MG PO BID 3. PREDNISONE 20MG PO BID X 10 DAYS The patient's discharge medication list was reviewed for discrepancies and discrepancies were resolved. The patient was counseled on the following discharge medications and changes in medications for homegoing were reviewed. The Reason for Use, instructions for use, and potential side effects were reviewed for all new medications. The patient's questions regarding all of their medications were answered. The patient was able to verbally demonstrate an understanding of their discharge medications. Medications at Discharge Home Medications diphenhydramine HCl 25 mg tablet (Allergy) 50 mg PO BID PRN ALLERGIES 05/11/23 losartan 50 mg tablet (Cozaar) 50 mg PO DAILY BLOOD PRESSURE 05/11/23 albuterol sulfate 90 mcg/actuation breath activated powder inhaler 2 inh inhalation Q4H PRN SHORTNESS OF BREATH #1 ea 05/13/23 amlodipine 5 mg tablet 5 mg PO DAILY BLOOD PRESSURE 05/27/24 azithromycin 250 mg tablet 500 mg (2 x 250 mg) PO Q24 5 days #10 tabs 04/22/25 guaifenesin 1,200 mg tablet, extended release 12 hr (Mucus Relief ER) 1,200 mg PO BID #20 tabs 04/22/25 prednisone 20 mg tablet 20 mg PO BID #20 tabs 04/22/25
--- NOTE | 2025-04-22 11:43 | CASEMGMT ---
Patient has order for discharge. Patient qualifies for home oxygen with exertion. PATTI BARRAZA in to discuss needs at discharge. Patient states he still smokes but not for the last week. PATTI BARRAZA updated patient that [facility] until patient has quit for 2 months and has followed with a polisher brass at the [place]. PATTI BARRAZA offered to setup oxygen through another DME through his [facility]. Patient refuses to have home oxygen setup at discharge. Patient declines further needs. PATTI BARRAZA encouraged patient to follow up with [facility] and to request to follow with polisher brass at the [place]. Patient voiced understanding and declined further needs. Patient had no further questions or concerns.
== END 2025-04-22 13:56 | disposition home or self-care (01) | DRG 190 ==
LOC: ED 13:37 → PCU 15:02
PROVIDERS: Physician Assistant; Admitting Provider Internal Medicine; Emergency Provider Surgery; Visit Provider Internal Medicine
DX: J44.1 Chronic obstructive pulmonary disease with (acute) exacerbation (principal); J96.01 Acute respiratory failure with hypoxia; I10 Essential (primary) hypertension; E66.811 Obesity, class 1; F17.290 Nicotine dependence, other tobacco product, uncomplicated; J30.2 Other seasonal allergic rhinitis; Z68.30 Body mass index [BMI] 30.0-30.9, adult; Z79.899 Other long term (current) drug therapy
CPT/HCPCS: 36415; 71045; 80048; 82803; 84484; 85025; 87070; 87205; 87631; 87633; 93005; 94640; 94668; 97802; 99252; 99285; A4216; G0463

== ENCOUNTER 2025-05-18 20:40 | Inpatient (IN) | payer OTHER, SELFPAY ==
[2025-05-18] VITALS (18 sets, daily range): BP systolic 120–149; BP diastolic 66–82; PULSE 88–100; RESP 21–32; TEMP 36.6–37.4; O2SAT 87–97; BMI 33.2
--- NOTE | 2025-05-18 21:00 | EKG12_ITS ---
Test Reason : CP Blood Pressure : */* mmHG Vent. Rate : 95 BPM Atrial Rate : 95 BPM P-R Int : 148 ms QRS Dur : 76 ms QT Int : 330 ms P-R-T Axes : 20 25 40 degrees QTcB Int : 414 ms Normal sinus rhythm Normal ECG Confirmed by Massimo Rodgers ([id number]), features editor ESTER OROZCO ([id number]) on 05/20/2025 10:46:16 AM Referred By: BRANDY Confirmed By: Massimo Rodgers
--- OUTSIDE RECORDS SUMMARY | 2025-05-18 21:03 | XMS RPT_ITS | CCD ---
Author Organization [facility] Care Team Providers Care Manager English Name Role Phone [facility], [place] Primary Care Provider Dr. Frederick Talley Emergency Provider Dr. Chino Sandoval Admit Provider [phone] Chion Sandoval Attending Provider Dr. Chino Sandoval Other Provider [phone] Tay Huggins Attending Provider Dr. Linsey Spivey Attending Provider [phone] Dr. Linsey Spivey Other Provider [phone] [facility], [place] Primary Care Provider Dr. Oneal Mitchell DO Emergency Provider Dung TERAN, Dr. Cleary Admit Provider Dr. Madiha Razo MD Attending Provider [phone] Madiha Razo MD Other Provider Dr. Luis Hernandez MD Attending Provider Unavaila Dr. Chino Mac DO Other Provider [phone] [facility], [place] Primary Care Provider Dr. Chino Brooks DO Attending Provider Dr. Luis Hernandez MD Other Provider Unavailable Dung, Madiha Consulting [facility] [place] [facility] Luis Hernandez Attending Unavailable Madiha Razo Admitting Unavailable Chino Sandoval Consulting [facility] [place] Primary Care Unavailable Razo, Madiha Admitting Unavailable RazoMadiha Attending Unavailable Razo, Madiha Admitting [facility] [place] [facility] Un[facility] Razo, Madiha Consulting Unavailable Razo, Madiha Attending Unavailable Razo, Madiha Admitting [facility] [place] [facility] Un[facility] Razo, Madiha Consulting Unavailable Madiha Razo Attending [facility]available [facility] [place] Primary Care Unavailable Razo, Madiha Consulting Unavailable [place], Luis Attending Unavailable Madiha Razo Admitting Unavailable Chino Sandoval Consulting Unavailable Luis Hernandez Consulting Unavailable Chino Sandoval Attending Unavailable Madiha Razo Attending Unavailable Allergies Allergy Classification Reported Allergen(s) Allergy Type Date of Onset Reaction(s) Facility (3 sources) POISON DENNIS EXTRACT Drug Allergy 05-11-2023 Rash [facility] (1 source) poison dennis extract Drug allergy (disorder) 05-27-2024 [facility] Repository Medications Current Medications Medication Drug Class(es) Dates Sig (Normalized) Sig (Original) 200 actuat albuterol 0.09 mg/actuat dry powder inhaler (3 sources) beta2-Adrenergic Agonist Start: 05-13-2023 Albuterol Sulfate 90 mcg/actuation aerosol powdr breath activated Active 2 NMA INHALATION Q4H as needed for SHORTNESS OF BREATH 1 0 May 13, 2023 12:00am Start: 05-13-2023 Albuterol Sulf ate Active 2 INH INHALATION Q4H 1 May 13, 2023 12:00am amLODIPine 5 mg oral tablet (5 sources) Dihydropyridine Calcium Channel Jacques Start: 05-13-2023 End: 05-27-2024 take 1 tablet by mouth once daily Amlodipine 5 mg Tablet Active 5 mg PO DAILY May 27, 2024 12:00am BLOOD PRESSURE azithromycin 250 mg oral tablet (4 sources) Macrolide Antimicrobial Start: 04-22-2025 take 2 tablets by mouth every twenty-four hours Azithromycin 250 mg Tablet Active 500 mg PO EVERY 24 HOURS 10 5 0 April 22, 2025 12:00am Start: 05-13-2023 End: 05-27-2024 take 1 tablet by mouth once daily Azithromycin 500 mg tablet Discontinued 500 mg PO DAILY 2 2 0 May 13, 2023 12:00am May 27, 2024 9:40am diphenhydrAMINE hydrochloride 25 mg oral tablet (3 sources) Histamine-1 Receptor Antagonist Start: 05-11-2023 take 2 tablets by mouth twice daily as needed Diphenhydramine Hcl (Allergy) 25 mg tablet Active 50 mg PO TWICE DAILY NEEDED May 11, 2023 12:00am ALLERGIES 12 hr guaiFENesin 1200 mg extended release oral tablet (1 source) Start: 04-22-2025 take 1 tablet by mouth twice daily, then take 1 tablet by mouth every twelve hours Guaifenesin (Mucus Relief Er) 1,200 mg Tablet Extended Release 12hr Active 1200 mg PO TWICE A DAY 20 0 April 22, 2025 12:00am losartan potassium 50 mg oral tablet (3 sources) Angiotensin 2 Receptor Jacques Start: 05-11-2023 take 1 tablet by mouth once daily Losartan (Cozaar) 50 mg tablet Active 50 mg PO DAILY May 11, 2023 12:00am BLOOD PRESSURE predniSONE 20 mg oral tablet (6 sources) Start: 04-22-2025 take 1 tablet by mouth twice daily Prednisone 20 mg tablet Active 20 mg PO TWICE A DAY 20 0 April 22, 2025 12:00am Start: 05-29-2024 End: 04-20-2025 Prednisone 20 mg Tablet Disc ontinued 0 mg PO WITH BREAKFAST 32 0 May 29, 2024 12:00am April 20, 2025 12:12pm Please contact the information source for Taper Schedule details. Start: 05-13-2023 End: 05-27-2024 Prednisone 10 mg tablet Disc ontinued 0 mg PO DAILY 30 0 May 13, 2023 12:00am May 27, 2024 9:41am COPD exacerbation Please contact the information source for Taper Schedule details. Completed/Discontinued Medications Medication Drug Class(es) Dates Sig (Normalized) Sig (Original) aspirin 81 mg chewable tablet (3 sources) Platelet Aggregation Inhibitor, Nonsteroidal Anti-inflammatory Drug Start: 05-13-2023 End: 05-27-2024 take 1 tablet by mouth once daily Aspirin 81 mg tablet,chewable Discontinued 81 mg PO DAILY 30 30 0 May 13, 2023 12:00am May 27, 2024 9:40am cefdinir 300 mg oral capsule (3 sources) Cephalosporin Antibacterial Start: 05-13-2023 End: 05-27-2024 take 1 capsule by mouth every twelve hours Cefdinir 300 mg capsule Discontinued 300 mg PO Q12H 6 3 0 May 13, 2023 12:00am May 27, 2024 9:40am Fluticasone Propion-Salmeterol (3 sources) Corticosteroid, beta2-Adrenergic Agonist Start: 05-13-2023 End: 05-27-2024 Fluticasone Propion-Salmeterol (Advair Diskus) 250-50 mcg/dose blister with device Discontinued 1 NMA INHALATION Q12H 60 0 May 13, 2023 12:00am May 27, 2024 9:42am Chronic obstructive pulmonary disease Chronic obstructive pulmonary disease, unspecified Start: 05-13-2023 Fluticasone Pr opion-Salmeterol (Advair Diskus) 250-50 mcg/dose blister with device Active 1 INH INHALATION Q12H 60 May 13, 2023 12:00am levoFLOXacin 750 mg oral tablet (2 sources) Quinolone Antimicrobial Start: 05-29-2024 End: 04-20-2025 take 1 tablet by mouth once daily Levofloxacin 750 mg tablet Discontinued 750 mg PO DAILY 7 7 0 May 29, 2024 12:00am April 20, 2025 12:12pm Problems Problem Classification Problem Date Documented Da te Episodic/Chronic Chronic obstructive pulmonary disease and bronchiectasis (12 sources) Chronic obstructive lung disease; Translations: [Chronic obstructive pulmonary disease, unspecified] Onset: 04-29-2025 05-13-2023 Chronic Other lower respiratory disease (4 sources) Hypoxia; Translations: [Hypoxemia] 05-11-2023 Episodic Other lower respiratory disease (3 sources) Hypoxemia; Translations: [Hypoxemia] Onset: 06-19-2024 05-13-2023 Episodic Other lower respiratory disease (1 source) Shortness of breath; Translations: [Shortness of breath] Onset: 05-01-2025 Episodic Residual codes; unclassified (2 sources) Tobacco use and exposure - finding; Translations: [Tobacco use] 04-20-2025 Episodic Results Test Name Value Interpretation Reference Range Facility Basic Metabolic Profile (BMP )on 04-25-2025 BUN Normal 01-04 [facility] Comment on above: Result Comment: Canc elled via OM: Order cancelled - Patient discharged Performed By: #### L 500.2500, L100.0500 #### [facility] [address] [place], [place], [id number] BUN/CRE Normal 07-07 [facility] Comment on above: Result Comment: Canc elled via OM: Order cancelled - Patient discharged Performed By: #### L 500.2500, L100.0500 #### [facility] [address] [place], [address] Calcium Normal 7.6-11.0 [facility] Comment on above: Result Comment: Canc elled via OM: Order cancelled - Patient discharged Performed By: #### L 500.2500, L100.0500 #### [facility] [address] [place], [address] CL Normal 98-108 [facility] Comment on above: Result Comment: Canc elled via OM: Order cancelled - Patient discharged Performed By: #### L 500.2500, L100.0500 #### [facility] [address] [place], [address] CO2 Normal 21.0-32.0 [facility] Comment on above: Result Comment: Canc elled via OM: Order cancelled - Patient discharged Performed By: #### L 500.2500, L100.0500 #### [facility] [address] [place], [address] CREAT,SERUM Normal 0.70-1.20 [facility] Comment on above: Result Comment: Canc elled via OM: Order cancelled - Patient discharged Performed By: #### L 500.2500, L100.0500 #### [facility] [address] [place], [address] eGFR Normal >60 [facility] Comment on above: Result Comment: Canc elled via OM: Order cancelled - Patient discharged Performed By: #### L 500.2500, L100.0500 #### [facility] [address] [place], [address] GAP Normal 5-15 [facility] Comment on above: Result Comment: Canc elled via OM: Order cancelled - Patient discharged Performed By: #### L 500.2500, L100.0500 #### [facility] [address] [place], [address] GLU Normal 70-99 [facility] Comment on above: Result Comment: Canc elled via OM: Order cancelled - Patient discharged Performed By: #### L 500.2500, L100.0500 #### [facility] [address] [place], [address] Potassium Normal 3.3-5.1 [facility] Comment on above: Result Comment: Canc elled via OM: Order cancelled - Patient discharged Performed By: #### L 500.2500, L100.0500 #### [facility] [address] [place], [address] Basic Metabolic Profile (BMP) Normal 133-145 [facility] Comment on above: Result Comment: Canc elled via OM: Order cancelled - Patient discharged Performed By: #### L 500.2500, L100.0500 #### [facility] [address] [place], [address] CBC-Complete Blood Cnt No Di ffon 04-25-2025 HCT Normal 40-54 [facility] Comment on above: Result Comment: Canc elled via OM: Order cancelled - Patient discharged Performed By: #### L 500.2500, L100.0500 #### [facility] [address] [place], [address] HGB Normal 13.0-16.5 [facility] Comment on above: Result Comment: Canc elled via OM: Order cancelled - Patient discharged Performed By: #### L 500.2500, L100.0500 #### [facility] [address] [place], [address] MCH Normal 27.0-32.0 [facility] Comment on above: Result Comment: Canc elled via OM: Order cancelled - Patient discharged Performed By: #### L 500.2500, L100.0500 #### [facility] [address] [place], [address] MCHC Normal 32-36 [facility] Comment on above: Result Comment: Canc elled via OM: Order cancelled - Patient discharged Performed By: #### L 500.2500, L100.0500 #### [facility] [address] [place], [address] MCV Normal 80-94 [facility] Comment on above: Result Comment: Canc elled via OM: Order cancelled - Patient discharged Performed By: #### L 500.2500, L100.0500 #### [facility] [address] [place], [address] PLT Normal 150-450 [facility] Comment on above: Result Comment: Canc elled via OM: Order cancelled - Patient discharged Performed By: #### L 500.2500, L100.0500 #### [facility] [address] [place], [address] RBC Normal 4.6-6.2 [facility] Comment on above: Result Comment: Canc elled via OM: Order cancelled - Patient discharged Performed By: #### L 500.2500, L100.0500 #### [facility] [address] [place], [address] RDW CV Normal 11.6-14.6 [facility] Comment on above: Result Comment: Canc elled via OM: Order cancelled - Patient discharged Performed By: #### L 500.2500, L100.0500 #### [facility] [address] [place], [address] RDW SD Normal 35.1-43.9 [facility] Comment on above: Result Comment: Canc elled via OM: Order cancelled - Patient discharged Performed By: #### L 500.2500, L100.0500 #### [facility] [address] [place], [address] WBC Normal 4.4-11.0 [facility] Comment on above: Result Comment: Canc elled via OM: Order cancelled - Patient discharged Performed By: #### L 500.2500, L100.0500 #### [facility] [address] [place], [address] Basic Metabolic Profile (BMP )on 04-24-2025 BUN Normal 4-19 [facility] Comment on above: Result Comment: Canc elled via OM: Order cancelled - Patient discharged Performed By: #### L 500.2500, L100.0500 #### [facility] [address] [place], [address] BUN/CRE Normal 10-20 [facility] Comment on above: Result Comment: Canc elled via OM: Order cancelled - Patient discharged Performed By: #### L 500.2500, L100.0500 #### [facility] [address] [place], [address] Calcium Normal 7.6-11.0 [facility] Comment on above: Result Comment: Canc elled via OM: Order cancelled - Patient discharged Performed By: #### L 500.2500, L100.0500 #### [facility] [address] [place], [address] CL Normal 98-108 [facility] Comment on above: Result Comment: Canc elled via OM: Order cancelled - Patient discharged Performed By: #### L 500.2500, L100.0500 #### [facility] [address] [place], [address] CO2 Normal 21.0-32.0 [facility] Comment on above: Result Comment: Canc elled via OM: Order cancelled - Patient discharged Performed By: #### L 500.2500, L100.0500 #### [facility] [address] [place], [address] CREAT,SERUM Normal 0.70-1.20 [facility] Comment on above: Result Comment: Canc elled via OM: Order cancelled - Patient discharged Performed By: #### L 500.2500, L100.0500 #### [facility] [address] [place], [address] eGFR Normal >60 [facility] Comment on above: Result Comment: Canc elled via OM: Order cancelled - Patient discharged Performed By: #### L 500.2500, L100.0500 #### [facility] [address] [place], [address] GAP Normal 5-15 [facility] Comment on above: Result Comment: Canc elled via OM: Order cancelled - Patient discharged Performed By: #### L 500.2500, L100.0500 #### [facility] [address] [place], [address] GLU Normal 70-99 [facility] Comment on above: Result Comment: Canc elled via OM: Order cancelled - Patient discharged Performed By: #### L 500.2500, L100.0500 #### [facility] [address] [place], [address] Potassium Normal 3.3-5.1 [facility] Comment on above: Result Comment: Canc elled via OM: Order cancelled - Patient discharged Performed By: #### L 500.2500, L100.0500 #### [facility] [address] [place], [address] Basic Metabolic Profile (BMP) Normal 133-145 [facility] Comment on above: Result Comment: Canc elled via OM: Order cancelled - Patient discharged Performed By: #### L 500.2500, L100.0500 #### [facility] [address] [place], [address] CBC-Complete Blood Cnt No Di ffon 04-24-2025 HCT Normal 40-54 [facility] Comment on above: Result Comment: Canc elled via OM: Order cancelled - Patient discharged Performed By: #### L 500.2500, L100.0500 #### [facility] [address] [place], [address] HGB Normal 13.0-16.5 [facility] Comment on above: Result Comment: Canc elled via OM: Order cancelled - Patient discharged Performed By: #### L 500.2500, L100.0500 #### [facility] [address] [place], [address] MCH Normal 27.0-32.0 [facility] Comment on above: Result Comment: Canc elled via OM: Order cancelled - Patient discharged Performed By: #### L 500.2500, L100.0500 #### [facility] [address] [place], [address] MCHC Normal 32-36 [facility] Comment on above: Result Comment: Canc elled via OM: Order cancelled - Patient discharged Performed By: #### L 500.2500, L100.0500 #### [facility] [address] [place], [address] MCV Normal 80-94 [facility] Comment on above: Result Comment: Canc elled via OM: Order cancelled - Patient discharged Performed By: #### L 500.2500, L100.0500 #### [facility] [address] [place], [address] PLT Normal 150-450 [facility] Comment on above: Result Comment: Canc elled via OM: Order cancelled - Patient discharged Performed By: #### L 500.2500, L100.0500 #### [facility] [address] [place], [address] RBC Normal 4.6-6.2 [facility] Comment on above: Result Comment: Canc elled via OM: Order cancelled - Patient discharged Performed By: #### L 500.2500, L100.0500 #### [facility] [address] [place], [address] RDW CV Normal 11.6-14.6 [facility] Comment on above: Result Comment: Canc elled via OM: Order cancelled - Patient discharged Performed By: #### L 500.2500, L100.0500 #### [facility] [address] [place], [address] RDW SD Normal 35.1-43.9 [facility] Comment on above: Result Comment: Canc elled via OM: Order cancelled - Patient discharged Performed By: #### L 500.2500, L100.0500 #### [facility] [address] [place], [address] WBC Normal 4.4-11.0 [facility] Comment on above: Result Comment: Canc elled via OM: Order cancelled - Patient discharged Performed By: #### L 500.2500, L100.0500 #### [facility] [address] [place], [address] CBC-Complete Blood Cnt No Di ffon 04-23-2025 HCT Normal 40-54 [facility] Comment on above: Result Comment: Canc elled via OM: Order cancelled - Patient discharged Performed By: #### L 100.0500 #### [facility] [address] [place], [address] HGB Normal 13.0-16.5 [facility] Comment on above: Result Comment: Canc elled via OM: Order cancelled - Patient discharged Performed By: #### L 100.0500 #### [facility] [address] [place], [address] MCH Normal 27.0-32.0 [facility] Comment on above: Result Comment: Canc elled via OM: Order cancelled - Patient discharged Performed By: #### L 100.0500 #### [facility] [address] [place], [address] MCHC Normal 32-36 [facility] Comment on above: Result Comment: Canc elled via OM: Order cancelled - Patient discharged Performed By: #### L 100.0500 #### [facility] [address] [place], [address] MCV Normal 80-94 [facility] Comment on above: Result Comment: Canc elled via OM: Order cancelled - Patient discharged Performed By: #### L 100.0500 #### [facility] [address] [place], [address] PLT Normal 150-450 [facility] Comment on above: Result Comment: Canc elled via OM: Order cancelled - Patient discharged Performed By: #### L 100.0500 #### [facility] [address] [place], [address] RBC Normal 4.6-6.2 [facility] Comment on above: Result Comment: Canc elled via OM: Order cancelled - Patient discharged Performed By: #### L 100.0500 #### [facility] [address] [place], [address] RDW CV Normal 11.6-14.6 [facility] Comment on above: Result Comment: Canc elled via OM: Order cancelled - Patient discharged Performed By: #### L 100.0500 #### [facility] [address] [place], [address] RDW SD Normal 35.1-43.9 [facility] Comment on above: Result Comment: Canc elled via OM: Order cancelled - Patient discharged Performed By: #### L 100.0500 #### [facility] [address] [place], [address] WBC Normal 4.4-11.0 [facility] Comment on above: Result Comment: Canc elled via OM: Order cancelled - Patient discharged Performed By: #### L 100.0500 #### [facility] [address] [place], [address] Respiratory Cultureon 2024 RESPC List Antibiotics Last 48 Hours? see mar Mixed normal respiratory calixto. No Streptococcus pneumoniae, beta-hemolytic Streptococcus or Staphylococcus aureus isolated. Normal [facility] Comment on above: Performed By: #### L 500.2500, L100.0100 #### [facility] [address] [place], [address] Absolute lymphocyte countOrd ered By: Madiha Razo on 04-21-2025 Lymphocytes Auto (Unsp spec) [#/Vol] 0.91 10*3/uL 0.83-4.51 [facility] Absolute neutrophil countOrd ered By: Madiha Razo on 04-21-2025 Neutrophils (Bld) [#/Vol] 13.0 10*3/uL High 2.0-7.7 [facility] Anion gap in Serum or Plasma Ordered By: Madiha Razo on 04-21-2025 Anion gap [Moles/Vol] 15 mmol/L 5-15 [facility] Automated lymphocyte count a s percentage of total leukocytesOrdered By: Madiha Razo on 04-21-2025 Lymphocytes/100 WBC Auto (Unsp spec) 6.4 % Low 19-41 [facility] BUN/creatinine ratioOrdered By: Madiha Razo on 04-21-2025 Urea nitrogen/Creatinine [Mass ratio] 24.6 mg/mg High 10-20 [facility] Basic Metabolic Profile (BMP )on 04-21-2025 BUN/CRE 24.6 RATIO High 10-20 [facility] Comment on above: Performed By: #### L 500.2500, L100.0100 #### [facility] [address] [place], [address] Calcium [Mass/Vol] 9.1 mg/dL Normal 7.6-11.0 [facility] Comment on above: Performed By: #### L 500.2500, L100.0100 #### [facility] [address] [place], [address] Chloride [Moles/Vol] 97 mmol/L Low 98-108 [facility] Comment on above: Performed By: #### L 500.2500, L100.0100 #### [facility] [address] [place], [address] CO2 [Moles/Vol] 21.4 mmol/L Normal 21.0-32.0 [facility] Comment on above: Performed By: #### L 500.2500, L100.0100 #### [facility] [address] [place], [address] Creatinine [Mass/Vol] 1.02 mg/dL Normal 0.70-1.20 [facility] Comment on above: Performed By: #### L 500.2500, L100.0100 #### [facility] [address] [place], [address] ECRCL 71.72 ml/min Normal 50-250 [facility] Comment on above: Performed By: #### L 500.2500, L100.0100 #### [facility] [address] [place], [address] GAP 15 Normal 5-15 [facility] Comment on above: Performed By: #### L 500.2500, L100.0100 #### [facility] [address] [place], [address] GFR/1.73 sq M.predicted among non-blacks MDRD (S/P/Bld) [Vol rate/Area] 81 mL/min/{1.73_m2} Normal >60 [facility] Comment on above: Result Comment: mL/m in/1.73m2 CKD-EPI Creatinine Equation (2020) Performed By: #### L 500.2500, L100.0100 #### [facility] [address] [place], [address] Glucose [Mass/Vol] 174 mg/dL High 70-99 [facility] Comment on above: Performed By: #### L 500.2500, L100.0100 #### [facility] [address] [place], [address] Potassium [Moles/Vol] 4.2 mmol/L Normal 3.3-5.1 [facility] Comment on above: Performed By: #### L 500.2500, L100.0100 #### [facility] [address] [place], [address] Sodium [Moles/Vol] 133 mmol/L Normal 133-145 [facility] Comment on above: Performed By: #### L 500.2500, L100.0100 #### [facility] [address] [place], [address] Urea nitrogen [Mass/Vol] 25 mg/dL High 4-19 [facility] Comment on above: Performed By: #### L 500.2500, L100.0100 #### [facility] [address] [place], [address] Basophil percentageOrdered B y: Madiha Razo on 04-21-2025 Basophils/100 WBC (Bld) 0.1 % 0-1 [facility] CBC W/Diff, Automatedon Absolute Lymph 0.91 X10 3/uL Normal 0.83-4.51 [facility] Comment on above: Performed By: #### L 500.2500, L100.0100 #### [facility] [address] [place], [address] Absolute Neut 13.0 X10 3/uL High 2.0-7.7 [facility] Comment on above: Performed By: #### L 500.2500, L100.0100 #### [facility] [address] [place], [address] Basophils/100 WBC (Bld) 0.1 % Normal 0-1 [facility] Comment on above: Performed By: #### L 500.2500, L100.0100 #### [facility] [address] [place], [address] Eosinophils/100 WBC (Bld) 0.1 % Normal 0-5 [facility] Comment on above: Performed By: #### L 500.2500, L100.0100 #### [facility] [address] [place], [address] Erythrocyte distribution width (RBC) [Ratio] 13.0 % Normal 11.6-14.6 [facility] Comment on above: Performed By: #### L 500.2500, L100.0100 #### [facility] [address] [place], [address] Hematocrit (Bld) [Volume fraction] 43.5 % Normal 40-54 [facility] Comment on above: Performed By: #### L 500.2500, L100.0100 #### [facility] [address] [place], [address] Hemoglobin (Bld) [Mass/Vol] 14.7 g/dL Normal 13.0-16.5 [facility] Comment on above: Performed By: #### L 500.2500, L100.0100 #### [facility] [address] [place], [address] IG% 0.600 Normal 0.0-0.9 [facility] Comment on above: Result Comment: IG% - Immature Granulocytes (promyelocytes, myelocytes and metamyelocytes) > 1% indicates that a LEFT SHIFT is Present. Performed By: #### L 500.2500, L100.0100 #### [facility] [address] [place], [address] Lymphocytes/100 WBC (Bld) 6.4 % Low 19-41 [facility] Comment on above: Performed By: #### L 500.2500, L100.0100 #### [facility] [address] [place], [address] MCH (RBC) [Entitic mass] 32.2 pg High 27.0-32.0 [facility] Comment on above: Performed By: #### L 500.2500, L100.0100 #### [facility] [address] [place], [address] MCHC (RBC) [Mass/Vol] 33.8 g/dL Normal 32-36 [facility] Comment on above: Performed By: #### L 500.2500, L100.0100 #### [facility] [address] [place], [address] MCV (RBC) [Entitic vol] 95.2 fL High 80-94 [facility] Comment on above: Performed By: #### L 500.2500, L100.0100 #### [facility] [address] [place], [address] Monocytes/100 WBC (Bld) 2.0 % Normal 0-10 [facility] Comment on above: Performed By: #### L 500.2500, L100.0100 #### [facility] [address] [place], [address] Neutrophils/100 WBC (Bld) 90.8 % High 47-70 [facility] Comment on above: Performed By: #### L 500.2500, L100.0100 #### [facility] [address] [place], [address] Nucleated RBC (Bld) [#/Vol] 0 10*3/uL Normal 0-5 [facility] Comment on above: Performed By: #### L 500.2500, L100.0100 #### [facility] [address] [place], [address] Platelet mean volume (Bld) [Entitic vol] 9.7 fL Normal 6.2-12.0 [facility] Comment on above: Performed By: #### L 500.2500, L100.0100 #### [facility] [address] [place], [address] Platelets (Bld) [#/Vol] 373 10*3/uL Normal 150-450 [facility] Comment on above: Performed By: #### L 500.2500, L100.0100 #### [facility] [address] [place], [address] RBC (Bld) [#/Vol] 4.57 10*6/uL Low 4.6-6.2 [facility] Comment on above: Performed By: #### L 500.2500, L100.0100 #### [facility] [address] [place], [address] RDW SD 45.0 fl High 35.1-43.9 [facility] Comment on above: Performed By: #### L 500.2500, L100.0100 #### [facility] [address] [place], [address] WBC (Bld) [#/Vol] 14.3 10*3/uL High 4.4-11.0 [facility] Comment on above: Performed By: #### L 500.2500, L100.0100 #### [facility] [address] [place], [address] Carbon dioxide, total [Moles /volume] in Central venous bloodOrdered By: Madiha Razo on 04-21-2025 CO2 [Moles/Vol] 21.4 mmol/L 21.0-32.0 [facility] Chloride assayOrdered By: Jey Razo on 04-21-2025 Chloride [Moles/Vol] 97 mmol/L Low 98-108 [facility] Electrocardiogram reportOrde red By: Vance Gomez on 04-21-2025 EKG study [facility] Cardiovascular Services [address] [place] [address] 12 Lead EKG 04/20/25 1233 MR#: [id number] Acct: [id number] Name: MELCHOR LYLE Rep #:[id number] : 1960 64 From: Vance Gomez MD Attending Dr: Dr. Chino Sandoval DO Status: ADM IN Ordering Dr: Minal Castro Date: 04/20/25 Location: [facility] Sex: M C Admitted: 04/20/25 Test Reason : SOB Blood Pressure : */* mmHG Vent. Rate : 104 BPM Atrial Rate : 104 BPM P-R Int : 150 ms QRS Dur : 80 ms QT Int : 328 ms P-R-T Axes : 10 28 40 degrees QTcB Int : 431 ms Sinus tachycardia Otherwise normal ECG Confirmed by NADINE TERAN, VANCE ([id number]), editor city ESTER OROZCO ([id number]) on 04/21/2025 9:46:39 AM Referred By: Confirmed By: VANCE GOMEZ MD 04/21/25 0946 Date _ Vance Gomez MD CC: Dr. Chino Sandoval DO; JEY Sheppard; [facility] ~ Signed [facility] Other Eosinophil percentageOrdered By: Madiha Razo on 04-21-2025 Eosinophils/100 WBC (Bld) 0.1 % 0-5 [facility] Erythrocyte distribution wid th ratioOrdered By: Madiha Razo on 04-21-2025 Erythrocyte distribution width (RBC) [Ratio] 13.0 % 11.6-14.6 [facility] Erythrocyte distribution wid th standard deviationOrdered By: Madiha Razo on 04-21-2025 Erythrocyte distribution width (RBC) [Ratio] 45.0 fl High 35.1-43.9 [facility] Glomerular filtration rate ( GFR) estimation/1.73 sq m using serum, plasma, or whole bOrdered By: Madiha Razo on 04-21-2025 GFR/1.73 sq M.predicted among non-blacks MDRD (S/P/Bld) [Vol rate/Area] 81 mL/min/{1.73_m2} >60 [facility] Comment on above: mL/min/1.73m2 CKD-EP I Creatinine Equation (2020) Gram Stainon 04-21-2025 GS List Antibiotics Last 48 Hours? see mar Acceptable Specimen? Yes (<25 Epithelial cells per/lpf) Gram Stain 1+ White Blood Cells 1+ Epithelial cells Rare Gram positive cocci Rare Gram positive rods Normal [facility] Comment on above: Performed By: #### L 500.2500, L100.0100 #### [facility] [address] [place], [address] Hematocrit Auto (Bld) [Volum e fraction]Ordered By: Madiha Razo on 04-21-2025 Hematocrit (Bld) [Volume fraction] 43.5 % 40-54 [facility] Hemoglobin measurementOrdere d By: Madiha Razo on 04-21-2025 Hemoglobin (Bld) [Mass/Vol] 14.7 g/dL 13.0-16.5 [facility] Immature granulocytes/100 WB C Auto (Bld)Ordered By: Madiha Razo on 04-21-2025 Immature granulocytes/100 WBC (Bld) 0.600 % 0.0-0.9 [facility] Comment on above: IG% - Immature Granu locytes (promyelocytes, myelocytes and metamyelocytes) > 1% indicates that a LEFT SHIFT is Present. MCV (mean corpuscular volume ) determinationOrdered By: Madiha Razo on 04-21-2025 MCV (RBC) [Entitic vol] 95.2 fL High 80-94 [facility] Mean corpuscular hemoglobin (MCH) determinationOrdered By: Madiha Razo on 04-21-2025 MCH (RBC) [Entitic mass] 32.2 pg High 27.0-32.0 [facility] Mean corpuscular hemoglobin concentration (MCHC) determinationOrdered By: Madiha Razo on 04-21-2025 MCHC (RBC) [Mass/Vol] 33.8 g/dL 32-36 [facility] Mean platelet volume determi nationOrdered By: Madiha Razo on 04-21-2025 Platelet mean volume (Bld) [Entitic vol] 9.7 fL 6.2-12.0 [facility] Monocyte percentageOrdered B y: Madiha Razo on 04-21-2025 Monocytes/100 WBC (Bld) 2.0 % 0-10 [facility] Neutrophil percentageOrdered By: Madiha Razo on 04-21-2025 Neutrophils/100 WBC (Bld) 90.8 % High 47-70 [facility] Nucleated red blood cell per centageOrdered By: Madiha Razo on 04-21-2025 Nucleated RBC/100 WBC (Bld) [Ratio] 0 % 0-5 [facility] Platelet countOrdered By: Jey Razo on 04-21-2025 Platelets (Bld) [#/Vol] 373 10*3/uL 150-450 [facility] Potassium measurement (mass/ volume)Ordered By: Madiha Razo on 04-21-2025 Potassium (Unsp spec) [Mass/Vol] 4.2 mmol/L 3.3-5.1 [facility] RBC Auto (Bld) [#/Vol]Ordere d By: Madiha Razo on 04-21-2025 RBC (Bld) [#/Vol] 4.57 10*6/uL Low 4.6-6.2 [facility] Serum creatinine measurement (mass/volume)Ordered By: Madiha Razo on 04-21-2025 Creatinine [Mass/Vol] 1.02 mg/dL 0.70-1.20 [facility] Serum glucose measurement (m ass/volume)Ordered By: Madiha Razo on 04-21-2025 Glucose [Mass/Vol] 174 mg/dL High 70-99 [facility] Serum or plasma calcium doni urement (mass/volume)Ordered By: Madiha Razo on 04-21-2025 Calcium [Mass/Vol] 9.1 mg/dL 7.6-11.0 [facility] Serum or plasma urea nitroge n measurement (mass/volume)Ordered By: Madiha Razo on 04-21-2025 Urea nitrogen [Mass/Vol] 25 mg/dL High 4-19 [facility] Sodium levelOrdered By: Cory Razo on 04-21-2025 Sodium [Moles/Vol] 133 mmol/L 133-145 [facility] White blood cell (WBC) count Ordered By: Madiha Razo on 04-21-2025 WBC (Bld) [#/Vol] 14.3 10*3/uL High 4.4-11.0 [facility] 12 Lead EKGon 04-20-2025 12 Lead EKG [facility] Cardiovascular Services [address] [place] [address] 12 Lead EKG 04/20/25 1233 MR#: [id number] Acct: [id number] Name: MELCHOR LYLE Rep #: [id number] : 1960 64 From: Vance Gomez MD Attending Dr: Dr. Chino Sandoval DO Status : ADM IN Ordering Dr: Minal Castro Date: 04/20/25 Location: [facility] Sex: M C Admitted: 04/20/25 Test Reason : SOB Blood Pressure : */* mmHG Vent. Rate : 104 BPM Atrial Rate : 104 BPM P-R Int : 150 ms QRS Dur : 80 ms QT Int : 328 ms P-R-T Axes : 10 28 40 degrees QTcB Int : 431 ms Sinus tachycardia Otherwise normal ECG Confirmed by VANCE GOMEZ MD ([id number]), editor city ESTER OROZCO ([id number]) on 04/21/2025 9:46:39 AM Referred By: Confirmed By: VANCE GOMEZ MD 04/21/25 0946 Date Vance Gomez MD CC: Dr. Chino Sandoval DO; JEY Sheppard; [facility] Signed Normal [facility] Absolute lymphocyte countOrd ered By: Minal Castro on 04-20-2025 Lymphocytes Auto (Unsp spec) [#/Vol] 1.24 10*3/uL 0.83-4.51 [facility] Absolute neutrophil countOrd ered By: Minal Castro on 04-20-2025 Neutrophils (Bld) [#/Vol] 10.9 10*3/uL High 2.0-7.7 [facility] Anion gap in Serum or Plasma Ordered By: Minal Castro on 04-20-2025 Anion gap [Moles/Vol] 15 mmol/L 5-15 [facility] Automated lymphocyte count a s percentage of total leukocytesOrdered By: Minal Castro on 04-20-2025 Lymphocytes/100 WBC Auto (Unsp spec) 9.1 % Low 19-41 [facility] BUN/creatinine ratioOrdered By: Minal Castro on 04-20-2025 Urea nitrogen/Creatinine [Mass ratio] 15.2 mg/mg 10-20 [facility] Basic Metabolic Profile (BMP )on 04-20-2025 BUN/CRE 15.2 RATIO Normal 10-20 [facility] Comment on above: Performed By: #### L 100.0100, L500.2500, L501.4021 #### [facility] [address] [place], [address] Calcium [Mass/Vol] 9.3 mg/dL Normal 7.6-11.0 [facility] Comment on above: Performed By: #### L 100.0100, L500.2500, L501.4021 #### [facility] [address] [place], [address] Chloride [Moles/Vol] 95 mmol/L Low 98-108 [facility] Comment on above: Performed By: #### L 100.0100, L500.2500, L501.4021 #### [facility] [address] [place], [address] CO2 [Moles/Vol] 22.7 mmol/L Normal 21.0-32.0 [facility] Comment on above: Performed By: #### L 100.0100, L500.2500, L501.4021 #### [facility] [address] [place], [address] Creatinine [Mass/Vol] 1.01 mg/dL Normal 0.70-1.20 [facility] Comment on above: Performed By: #### L 100.0100, L500.2500, L501.4021 #### [facility] [address] [place], [address] ECRCL 74.63 ml/min Normal 50-250 [facility] Comment on above: Performed By: #### L 100.0100, L500.2500, L501.4021 #### [facility] [address] [place], [address] GAP 15 Normal 5-15 [facility] Comment on above: Performed By: #### L 100.0100, L500.2500, L501.4021 #### [facility] [address] [place], [address] GFR/1.73 sq M.predicted among non-blacks MDRD (S/P/Bld) [Vol rate/Area] 82 mL/min/{1.73_m2} Normal >60 [facility] Comment on above: Result Comment: mL/m in/1.73m2 CKD-EPI Creatinine Equation (2020) Performed By: #### L 100.0100, L500.2500, L501.4021 #### [facility] [address] [place], [address] Glucose [Mass/Vol] 116 mg/dL High 70-99 [facility] Comment on above: Performed By: #### L 100.0100, L500.2500, L501.4021 #### [facility] [address] [place], [address] Potassium [Moles/Vol] 4.4 mmol/L Normal 3.3-5.1 [facility] Comment on above: Performed By: #### L 100.0100, L500.2500, L501.4021 #### [facility] [address] [place], [address] Sodium [Moles/Vol] 133 mmol/L Normal 133-145 [facility] Comment on above: Performed By: #### L 100.0100, L500.2500, L501.4021 #### [facility] [address] [place], [address] Urea nitrogen [Mass/Vol] 15 mg/dL Normal 4-19 [facility] Comment on above: Performed By: #### L 100.0100, L500.2500, L501.4021 #### [facility] [address] [place], [address] Basophil percentageOrdered B y: Minal Castro on 04-20-2025 Basophils/100 WBC (Bld) 0.7 % 0-1 [facility] CBC W/Diff, Automatedon -2024 Absolute Lymph 1.24 X10 3/uL Normal 0.83-4.51 [facility] Comment on above: Performed By: #### L 100.0100, L500.2500, L501.4021 #### [facility] [address] [place], [address] Absolute Neut 10.9 X10 3/uL High 2.0-7.7 [facility] Comment on above: Performed By: #### L 100.0100, L500.2500, L501.4021 #### [facility] [address] [place], [address] Basophils/100 WBC (Bld) 0.7 % Normal 0-1 [facility] Comment on above: Performed By: #### L 100.0100, L500.2500, L501.4021 #### [facility] [address] [place], [address] Eosinophils/100 WBC (Bld) 2.3 % Normal 0-5 [facility] Comment on above: Performed By: #### L 100.0100, L500.2500, L501.4021 #### [facility] [address] [place], [address] Erythrocyte distribution width (RBC) [Ratio] 13.1 % Normal 11.6-14.6 [facility] Comment on above: Performed By: #### L 100.0100, L500.2500, L501.4021 #### [facility] [address] [place], [address] Hematocrit (Bld) [Volume fraction] 46.4 % Normal 40-54 [facility] Comment on above: Performed By: #### L 100.0100, L500.2500, L501.4021 #### [facility] [address] [place], [address] Hemoglobin (Bld) [Mass/Vol] 15.9 g/dL Normal 13.0-16.5 [facility] Comment on above: Performed By: #### L 100.0100, L500.2500, L501.4021 #### [facility] [address] [place], [address] IG% 0.400 Normal 0.0-0.9 [facility] Comment on above: Result Comment: IG% - Immature Granulocytes (promyelocytes, myelocytes and metamyelocytes) > 1% indicates that a LEFT SHIFT is Present. Performed By: #### L 100.0100, L500.2500, L501.4021 #### [facility] [address] [place], [address] Lymphocytes/100 WBC (Bld) 9.1 % Low 19-41 [facility] Comment on above: Performed By: #### L 100.0100, L500.2500, L501.4021 #### [facility] [address] [place], [address] MCH (RBC) [Entitic mass] 32.3 pg High 27.0-32.0 [facility] Comment on above: Performed By: #### L 100.0100, L500.2500, L501.4021 #### [facility] [address] [place], [address] MCHC (RBC) [Mass/Vol] 34.3 g/dL Normal 32-36 [facility] Comment on above: Performed By: #### L 100.0100, L500.2500, L501.4021 #### [facility] [address] [place], [address] MCV (RBC) [Entitic vol] 94.1 fL High 80-94 [facility] Comment on above: Performed By: #### L 100.0100, L500.2500, L501.4021 #### [facility] [address] [place], [address] Monocytes/100 WBC (Bld) 7.4 % Normal 0-10 [facility] Comment on above: Performed By: #### L 100.0100, L500.2500, L501.4021 #### [facility] [address] [place], [address] Neutrophils/100 WBC (Bld) 80.1 % High 47-70 [facility] Comment on above: Performed By: #### L 100.0100, L500.2500, L501.4021 #### [facility] [address] [place], [address] Nucleated RBC (Bld) [#/Vol] 0 10*3/uL Normal 0-5 [facility] Comment on above: Performed By: #### L 100.0100, L500.2500, L501.4021 #### [facility] [address] [place], [address] Platelet mean volume (Bld) [Entitic vol] 9.3 fL Normal 6.2-12.0 [facility] Comment on above: Performed By: #### L 100.0100, L500.2500, L501.4021 #### [facility] [address] [place], [address] Platelets (Bld) [#/Vol] 334 10*3/uL Normal 150-450 [facility] Comment on above: Performed By: #### L 100.0100, L500.2500, L501.4021 #### [facility] [address] [place], [address] RBC (Bld) [#/Vol] 4.93 10*6/uL Normal 4.6-6.2 [facility] Comment on above: Performed By: #### L 100.0100, L500.2500, L501.4021 #### [facility] [address] [place], [address] RDW SD 44.8 fl High 35.1-43.9 [facility] Comment on above: Performed By: #### L 100.0100, L500.2500, L501.4021 #### [facility] [address] [place], [address] WBC (Bld) [#/Vol] 13.6 10*3/uL High 4.4-11.0 [facility] Comment on above: Performed By: #### L 100.0100, L500.2500, L501.4021 #### [facility] [address] [place], [address] CO2 (BldV) [Moles/Vol]Ordere d By: Oneal Ng on 04-20-2025 CO2 [Moles/Vol] 30 mmol/L 23-33 [facility] Carbon dioxide, total [Moles /volume] in Central venous bloodOrdered By: Minal Castro on 04-20-2025 CO2 [Moles/Vol] 22.7 mmol/L 21.0-32.0 [facility] Chest 1 View (Portable)on Chest 1 View (Portable) [facility] Imaging Services [address] [place] [address] Chest 1 View (Portable) MR#: [id number] Acct: [id number] Name: MELCHOR LYLE Rep #: [id number] : 1960 M 64 From: Delores Betts nd, MD PCP: [facility] Status: PRE ER Study: Chest 1 View (Portable) Date of Exam: 04/20/25 Exam# [id number] Ordering Dr: Minal Castro PROCEDURE: CHEST 1 VIEW (PORTABLE) 04/20/2025 REASON FOR EXAM: DYSPNEA TECHNIQUE: Frontal view of the chest. COMPARISON: Chest radiograph 05/27/2024. FINDINGS: Hardware: None. Heart: The heart size is normal. Lungs: No focal consolidation, pleural effusion or pneumothorax. Low lung volumes bilaterally. Bones: Degenerative changes are identified within the thoracic spine. RAD/Chest 1 View (Portable) IMPRESSION: No Acute Findings. Reading Location: [id number] CC: JEY Sheppard; [facility] [employer]: Signed Normal [facility] Chloride assayOrdered By: Hyun Castro on 04-20-2025 Chloride [Moles/Vol] 95 mmol/L Low 98-108 [facility] Emergency Department Summary on 04-20-2025 Emergency Department Summary [facility] Medical Records Department [address] [place] [address] Emergency Department Summary 04/20/25 MR#: [id number] Acct: [id number] Name: MELCHOR LYLE Rep #: [id number] : 1960 64 From: Minal JUÁREZ PCP: [facility] Status:ADM IN Location: [place] [address] HPI History of Present Illness Chief Complaint: Shortness of Breath Narrative Narrative: 64-year-old male with PMH of HTN, COPD, tobacco use presents with 1 week of increasing productive cough, wheezing, and shortness of breath. No chest pain he had a coughing fit today and remembers his sister asking him if he is okay because he thinks he blacked out for seconds. EMS noted he was 84% on room air and placed him on nasal cannula. He does not wear home oxygen. He smokes a pipe. He denies history of COPD but prior record shows he has COPD. He has an albuterol inhaler. He denies recent fever, chills, or sick contacts. He states he was admitted to the hospital in the past for similar symptoms and required oxygen. At 1 point he was discharged with O2 but then his [employer] insurance did not approve it for further use. [facility] Medical History (Updated 04/20/25 @ 16:03 by Arielle Diehl) Kidney stones Smoker Hypertension Home Medications ???Medication ???Instructions ???Recorded ???Last Taken ???Type diphenhydramine HCl 25 mg tablet 50 mg PO BID PRN ALLERGIES 3 04/19/25 History (Allergy) losartan 50 mg tablet (Cozaar) 50 mg PO DAILY BLOOD PRESSURE 04/1904/19/25 History albuterol sulfate 90 mcg/actuation 2 inh inhalation Q4H PRN SHORTNE SS 05/13/23 04/19/25 Rx breath activated powder inhaler OF BREATH #1 ea amlodipine 5 mg tablet 5 mg PO DAILY BLOOD PRESSURE 05/2704/19/25 History Allergy/AdvReac Type Severity Reaction Status Date / Time poison dennis extract Allergy Intermediate Rash Verified 05/27/24 07:20 Social History number of children: 0 Smoking Status: Current every day smoker tobacco type: pipe ROS ROS ED ROS Narrative Constitutional: Negative for fever, chills, malaise. CVS: Negative for palpitations, chest pain. Respiratory: Positive for shortness of breath, cough. GI: Negative for abdominal pain, nausea, vomiting. EXAM Physical Exam Narrative Exam Narrative: CONST: Patient sitting in bed in mild respiratory distress. EYES: Normal inspection. NECK: Normal inspection. RESP: Mild respiratory distress, tachypneic around 26 breaths/minute, wheezing throughout with minimal air movement. CVS: Regular rate and rhythm, no murmur, no gallop. SKIN: Color normal, no rash, warm, dry, intact. EXTREMITIES: Both feet have dried blood from him picking his skin, no edema. NEURO: Alert and answering questions appropriately. PSYCH: Normal affect. Const Vital Signs: 04/20/25 12:01 04/20/25 12:24 04/20/25 12:37 Temperature 97.4 F L Temperature Source Temporal Pulse Rate 118 H 107 H Respiratory Rate 26 H 20 H Respiratory Effort Short of Breath Labored Accessory Muscle Use Respiratory Depth Deep Respiratory Pattern Tachypnea Blood Pressure 156/92 H Blood Pressure Mean 113 Pulse Ox 92 Oxygen Delivery Method Room Air Nasal Cannula Oxygen Flow Rate (L/min) 2 04/20/25 13:04 04/20/25 14:00 04/20/25 14:05 Temperature 97.8 F 98 F 98 F Temperature Source Oral Oral Pulse Rate 82 92 94 Respiratory Rate 18 24 H 24 H Respiratory Effort Respiratory Depth Respiratory Pattern Blood Pressure 147/92 H 159/87 H 149/89 H Blood Pressure Mean 110 111 109 Pulse Ox 96 96 96 Oxygen Delivery Method Nasal Cannula Nasal Cannula Oxygen Flow Rate (L/min) 2 2 Physical Exam Const Vital Signs: 04/20/25 12:01 04/20/25 12:24 04/20/25 12:37 Temperature 97.4 F L Temperature Source Temporal Pulse Rate 118 H 107 H Respiratory Rate 26 H 20 H Respiratory Effort Short of Breath Labored Accessory Muscle Use Respiratory Depth Deep Respiratory Pattern Tachypnea Blood Pressure 156/92 H Blood Pressure Mean 113 Pulse Ox 92 Oxygen Delivery Method Room Air Nasal Cannula Oxygen Flow Rate (L/min) 2 04/20/25 13:04 04/20/25 14:00 04/20/25 14:05 Temperature 97.8 F 98 F 98 F Temperature Source Oral Oral Pulse Rate 82 92 94 Respiratory Rate 18 24 H 24 H Respiratory Effort Respiratory Depth Respiratory Pattern Blood Pressure 147/92 H 159/87 H 149/89 H Blood Pressure Mean 110 111 109 Pulse Ox 96 96 96 Oxygen Delivery Method Nasal Cannula Nasal Cannula Oxygen Flow Rate (L/min) 2 2 MDM MDM MDM Narrative Medical decision making narrative: Differential includes but not limited to COPD exacerbation, pneumonia, (more content not included)... Normal [facility] Eosinophil percentageOrdered By: Minal Castro on 04-20-2025 Eosinophils/100 WBC (Bld) 2.3 % 0-5 [facility] Erythrocyte distribution wid th ratioOrdered By: Minal Castro on 04-20-2025 Erythrocyte distribution width (RBC) [Ratio] 13.1 % 11.6-14.6 [facility] Erythrocyte distribution wid th standard deviationOrdered By: Minal Castro on 04-20-2025 Erythrocyte distribution width (RBC) [Ratio] 44.8 fl High 35.1-43.9 [facility] Glomerular filtration rate ( GFR) estimation/1.73 sq m using serum, plasma, or whole bOrdered By: Minal Castro on 04-20-2025 GFR/1.73 sq M.predicted among non-blacks MDRD (S/P/Bld) [Vol rate/Area] 82 mL/min/{1.73_m2} >60 [facility] Comment on above: mL/min/1.73m2 CKD-EP I Creatinine Equation (2020) Gram stainOrdered By: Madiha Razo on 04-20-2025 Microscopic observation Gram stain Nom (Unsp spec) [facility] H AND P Exam - Hospitaliston 04-20-2025 H&P Exam - Hospitalist [facility] Medical Records Department [address] [place] [address] H P Exam - Hospitalist 04/20/25 1434 MR#: [id number] Acct: [id number] Name: MELCHOR LYLE Rep #: [id number] : 1960 64 From: Madiha Razo MD PCP: [facility] Status:ADM IN Location: [facility] [id number] HPI - General General Date of Admission: 04/20/25 Date of Service: 04/20/25 Chief Complaint: Increasing SOB HPI Narrative MELCHOR LYLE, is a 64 M with a history of suspected COPD, tobacco use, hypertension and seasonal allergies who presented to [facility] ED 04/20/2025 due to increasing shortness of breath and cough. In the ED temp 97.4, heart rate initially 119 with a blood pressure 156/92, respiratory rate 26 and patient was 86% for with squad and was placed on 2 L of nasal cannula in the ED. VBG with a PCO2 of 46, bicarb of 29 and PO2 of 80, normal pH, slight increase in white blood cell count to 13.6, no significant abnormalities on BMP and troponin within normal limits. Chest x- ray negative. Patient with significant work of breathing and wheezing, he was given a neb and steroids with some improvement however continued to have difficulty and was not stable for discharge. Hospitalist contacted for admission. Patient evaluated at bedside. He reports increasing shortness of breath for 1 week with cough with peoples sputum, no fevers or chest pain, no other acute complaints. Reports he feels a little bit better after breathing treatment and steroids but is still significantly struggling. [facility] Medical History Hypertension Home Medications ???Medication ???Instructions ???Recorded ???Last Taken ???Type diphenhydramine HCl 25 mg tablet 50 mg PO QHS ALLERGIES 05/11/23 History (Allergy) losartan 50 mg tablet (Cozaar) 50 mg PO QHS BLOOD PRESSURE 04/19/25 History albuterol sulfate 90 mcg/actuation 2 inh inhalation Q4H PRN SHORTNE SS 05/13/23 04/19/25 Rx breath activated powder inhaler OF BREATH #1 ea amlodipine 5 mg tablet 5 mg PO QHS BLOOD PRESSURE 4 04/19/25 History Allergy/AdvReac Type Severity Reaction Status Date / Time poison dennis extract Allergy Intermediate Rash Verified 05/27/24 07:20 Social History number of children: 0 Smoking Status: Current every day smoker tobacco type: pipe ROS ROS Narrative General: Denies fever/chills HENT: Denies headache, denies stuffy nose, denies sore throat EYES: Denies changes in vision Resp: Cough with acosta sputum and increased shortness of breath Cardiac: Denies chest pain GI: Denies abdominal pain, denies changes in bowel, denies nausea/vomiting : Denies changes in urination Extremity: Denies swelling MSK: Denies weakness Neuro: Denies any numbness/tingling Heme: Denies any bleeding or bruising Skin: Denies rashes Psychiatric: No complaints voiced Vital Signs Vital Signs Vital Signs: 04/20/25 12:01 04/20/25 12:24 04/20/25 12:37 Temperature 97.4 F L Temperature Source Temporal Pulse Rate 118 H 107 H Respiratory Rate 26 H 20 H Respiratory Effort Short of Breath Labored Accessory Muscle Use Respiratory Depth Deep Respiratory Pattern Tachypnea Blood Pressure 156/92 H Blood Pressure Mean 113 Pulse Ox 92 Oxygen Delivery Method Room Air Nasal Cannula Oxygen Flow Rate (L/min) 2 04/20/25 13:04 04/20/25 14:00 04/20/25 14:05 Temperature 97.8 F 98 F 98 F Temperature Source Oral Oral Pulse Rate 82 92 94 Respiratory Rate 18 24 H 24 H Respiratory Effort Respiratory Depth Respiratory Pattern Blood Pressure 147/92 H 159/87 H 149/89 H Blood Pressure Mean 110 111 109 Pulse Ox 96 96 96 Oxygen Delivery Method Nasal Cannula Nasal Cannula Oxygen Flow Rate (L/min) 2 2 Weight Weight: 91.1 kg Body Mass Index (BMI) 33.4 Physical Exam Narrative General: Alert, oriented HEENT: Atraumatic, normocephalic Eyes: Anicteric, normal conjunctiva, extraocular movements grossly intact Neck: Supple Respiratory: Significant inspiratory and expiratory wheezes with increased respiratory effort Cardiovascular: Regular rate and rhythm GI: Soft, nontender, nondistended Extremities: No edema Musculoskeletal: Moving all extremities Neuro: No overt focal neurological deficits Skin: No rashes appreciated Psych: Cooperative Results Lab / Micro Data 04/20/25 12:25 04/20/25 12:25 Labs: Laboratory Results - last 24 hr 04/20/25 12:25: WBC 13.6 H, RBC 4.93, Hgb 15.9, Hct 46.4, MCV 94.1 H, MCH 32.3 H, MCHC 34.3, RDW Std Deviation 44.8 H, RDW Coeff of Monica 13.1, Plt Count 334, MPV 9.3, Immature Gran % (Auto) 0.400, Neut % (Auto) 80.1 H, Lymph % (Auto) 9.1 L, Rutherford % (Auto) 7.4, E (more content not included)... Normal [facility] Hematocrit Auto (Bld) [Volum e fraction]Ordered By: Minal Castro on 04-20-2025 Hematocrit (Bld) [Volume fraction] 46.4 % 40-54 [facility] Hemoglobin measurementOrdere d By: Minal Castro on 04-20-2025 Hemoglobin (Bld) [Mass/Vol] 15.9 g/dL 13.0-16.5 [facility] Immature granulocytes/100 WB C Auto (Bld)Ordered By: Minal Castro on 04-20-2025 Immature granulocytes/100 WBC (Bld) 0.400 % 0.0-0.9 [facility] Comment on above: IG% - Immature Granu locytes (promyelocytes, myelocytes and metamyelocytes) > 1% indicates that a LEFT SHIFT is Present. Influenza virus A and B and SARS-CoV-2 (COVID-19) and Respiratory syncytial virus RNAOrdered By: Minal Castro on 04-20-2025 SARS-CoV-2 (COVID-19) RNA LORRAINE+probe Ql (Unsp spec) [facility] L501.4021on 04-20-2025 Trop T High Sen < 6 Normal <=22 [facility] Comment on above: Performed By: #### L 501.4021 #### [facility] [address] [place], [address] Trop T High Sen < 6 Normal <=22 [facility] Comment on above: Performed By: #### L 100.0100, L500.2500, L501.4021 #### [facility] [address] [place], [address] M100.678on 04-20-2025 M100.678 Pending SARS-CoV-2 (COVID 19) Negative INFLUENZA A Negative INFLUENZA B Negative RSV PCR Negative Normal [facility] Comment on above: Performed By: #### L 500.2500, L100.0100 #### [facility] [address] [place], [address] MCV (mean corpuscular volume ) determinationOrdered By: Minal Castro on 04-20-2025 MCV (RBC) [Entitic vol] 94.1 fL High 80-94 [facility] Mean corpuscular hemoglobin (MCH) determinationOrdered By: Minal Castro on 04-20-2025 MCH (RBC) [Entitic mass] 32.3 pg High 27.0-32.0 [facility] Mean corpuscular hemoglobin concentration (MCHC) determinationOrdered By: Minal Castro on 04-20-2025 MCHC (RBC) [Mass/Vol] 34.3 g/dL 32-36 [facility] Mean platelet volume determi nationOrdered By: Minal Castro on 04-20-2025 Platelet mean volume (Bld) [Entitic vol] 9.3 fL 6.2-12.0 [facility] Monocyte percentageOrdered B y: Minal Castro on 04-20-2025 Monocytes/100 WBC (Bld) 7.4 % 0-10 [facility] Neutrophil percentageOrdered By: Minal Castro on 04-20-2025 Neutrophils/100 WBC (Bld) 80.1 % High 47-70 [facility] No Panel InformationOrdered By: Oneal Ng on 04-20-2025 Blood Gas Sample Site Not entered [facility] Blood Gas Specimen Type NIRMAL [facility] Oxygen Delivery Device Not entered [facility] Nucleated red blood cell per centageOrdered By: Minal Castro on 04-20-2025 Nucleated RBC/100 WBC (Bld) [Ratio] 0 % 0-5 [facility] Platelet countOrdered By: Hyun Castro on 04-20-2025 Platelets (Bld) [#/Vol] 334 10*3/uL 150-450 [facility] Potassium measurement (mass/ volume)Ordered By: Minal Castro on 04-20-2025 Potassium (Unsp spec) [Mass/Vol] 4.4 mmol/L 3.3-5.1 [facility] RBC Auto (Bld) [#/Vol]Ordere d By: Minal Castro on 04-20-2025 RBC (Bld) [#/Vol] 4.93 10*6/uL 4.6-6.2 [facility] RESPIRATORY PANEL MOLECULARo n 04-20-2025 RP PANEL ADENOVIRUS Not Detected INFLUENZA A Not Detected INFLUENZA A (SUBTYPE H1) Not Detected INFLUENZA A (SUBTYPE H3) Not Detected INFLUENZA B Not Detected HUMAN METAPHNEUMO Not Detected PARAINFLUENZA 1 Not Detected PARAINFLUENZA 2 Not Detected PARAINFLUENZA 3 Not Detected PARAINFLUENZA 4 Not Detected RHINOVIRUS Not Detected RSV A Not Detected RSV B Not Detected Normal [facility] Comment on above: Performed By: #### L 500.2500, L100.0100 #### [facility] [address] [place], [address] Respiratory pathogens detect ion panel by molecular detection methodOrdered By: Madiha Razo on 04-20-2025 Respiratory pathogens DNA and RNA panel LORRAINE+probe (Resp) [facility] Serum creatinine measurement (mass/volume)Ordered By: Minal Castro on 04-20-2025 Creatinine [Mass/Vol] 1.01 mg/dL 0.70-1.20 [facility] Serum glucose measurement (m ass/volume)Ordered By: Minal Castro on 04-20-2025 Glucose [Mass/Vol] 116 mg/dL High 70-99 [facility] Serum or plasma calcium doni urement (mass/volume)Ordered By: Minal Castro on 04-20-2025 Calcium [Mass/Vol] 9.3 mg/dL 7.6-11.0 [facility] Serum or plasma urea nitroge n measurement (mass/volume)Ordered By: Minal Castro on 04-20-2025 Urea nitrogen [Mass/Vol] 15 mg/dL 4-19 [facility] Sodium levelOrdered By: Minal Castro on 04-20-2025 Sodium [Moles/Vol] 133 mmol/L 133-145 [facility] Troponin T HS 2 HRon 025 Trop T High Sen 7 ng/L Normal <=22 [facility] Comment on above: Performed By: #### L 500.2500, L100.0500 #### [facility] [address] [place], [place], [address] Troponin T.cardiac [Mass/vol ume] in Serum or Plasma by High sensitivity methodOrdered By: Madiha Razo on 04-20-2025 Troponin T.cardiac High sensitivity method [Mass/Vol] < 6 ng/L <22 [facility] Troponin T.cardiac [Mass/vol ume] in Serum or Plasma by High sensitivity methodOrdered By: Minal Castro on 04-20-2025 Troponin T.cardiac High sensitivity method [Mass/Vol] 7 ng/L <22 [facility] Troponin T.cardiac High sensitivity method [Mass/Vol] < 6 ng/L <22 [facility] Venous Blood Gason 5 Blood Gas Type NIRMAL Normal [facility] Comment on above: Performed By: #### L 9000.0810 #### [facility] [address] [place], [address] CO2 [Moles/Vol] 30 mmol/L Normal 23-33 [facility] Comment on above: Performed By: #### L 9000.0810 #### [facility] [address] [place], [address] HCO3 (Bld) [Moles/Vol] 29 mmol/L High 22-26 [facility] Comment on above: Performed By: #### L 9000.0810 #### [facility] [address] [place], [address] O2 Delivery Dev Not entered Normal [facility] Comment on above: Performed By: #### L 9000.0810 #### [facility] [address] [place], [address] SITE Not entered Normal [facility] Comment on above: Performed By: #### L 9000.0810 #### [facility] [address] [place], [address] VBG BE 4 mmol/L High -1.0-3.5 [facility] Comment on above: Performed By: #### L 9000.0810 #### [facility] [address] [place], [address] VBG pCO2 46.3 mmHg Normal 41-51 [facility] Comment on above: Performed By: #### L 9000.0810 #### [facility] [address] [place], [address] VBG pH 7.40 Normal 7.32-7.42 [facility] Comment on above: Performed By: #### L 9000.0810 #### [facility] [address] [place], [address] VBG PO2 80 mmHg High 25-40 [facility] Comment on above: Performed By: #### L 9000.0810 #### [facility] [address] [place], [address] VBG SO2 96 High 50-70 [facility] Comment on above: Performed By: #### L 9000.0810 #### [facility] [address] [place], [address] Venous blood base excess rich surementOrdered By: Oneal Ng on 04-20-2025 Base excess Calc (BldV) [Moles/Vol] 4 mmol/L High -1.0-3.5 [facility] Venous blood bicarbonate rich surementOrdered By: Oneal Ng on 04-20-2025 HCO3 (Bld) [Moles/Vol] 29 mmol/L High 22-26 [facility] Venous blood oxygen saturati on measurementOrdered By: Oneal Ng on 04-20-2025 Oxygen saturation in Blood 96 % High 50-70 [facility] Venous blood pH measurementO rdered By: Oneal Ng on 04-20-2025 pH (BldV) 7.40 [pH] 7.32-7.42 [facility] Venous blood partial pressur e of carbon dioxide measurementOrdered By: Oneal gN on 04-20-2025 CO2 (BldV) [Partial pressure] 46.3 mm[Hg] 41-51 [facility] Venous blood partial pressur e of oxygen measurementOrdered By: Oneal Yo on 04-20-2025 Oxygen (BldV) [Partial pressure] 80 mm[Hg] High 25-40 [facility] White blood cell (WBC) count Ordered By: Minal Castro on 04-20-2025 WBC (Bld) [#/Vol] 13.6 10*3/uL High 4.4-11.0 [facility] Basic Metabolic Profile (BMP )on 05-29-2024 BUN/CRE 16.2 RATIO Normal 10-20 [facility] Comment on above: Performed By: #### L 500.2500, L100.0500 #### [facility] [address] [place], [address] CA,Total 9.7 mg/dL Normal 8.5-10.1 [facility] Comment on above: Performed By: #### L 500.2500, L100.0500 #### [facility] [address] [place], [address] Chloride [Moles/Vol] 102 mmol/L Normal 98-107 [facility] Comment on above: Performed By: #### L 500.2500, L100.0500 #### [facility] [address] [place], [address] CO2 [Moles/Vol] 26.0 mmol/L Normal 21.0-32.0 [facility] Comment on above: Performed By: #### L 500.2500, L100.0500 #### [facility] [address] [place], [address] Creatinine [Mass/Vol] 1.05 mg/dL Normal 0.70-1.30 [facility] Comment on above: Result Comment: The validity of the calculated GFR GFRAA in patients over 70 years has not been determined. Clinical correlation is essential. Performed By: #### L 500.2500, L100.0500 #### [facility] [address] [place], [address] ECRCL 72.08 ml/min Normal [facility] Comment on above: Performed By: #### L 500.2500, L100.0500 #### [facility] [address] [place], [address] EST GFR - AA 91 mL/min Normal >60 [facility] Comment on above: Result Comment: Afri can Citizen Of [place] GFR Calc Performed By: #### L 500.2500, L100.0500 #### [facility] [address] [place], [address] GAP 7 Normal 5-15 [facility] Comment on above: Performed By: #### L 500.2500, L100.0500 #### [facility] [address] [place], [address] GFR/1.73 sq M.predicted among non-blacks MDRD (S/P/Bld) [Vol rate/Area] 75 mL/min/{1.73_m2} Normal >60 [facility] Comment on above: Result Comment: Non- GFR Calc Performed By: #### L 500.2500, L100.0500 #### [facility] [address] [place], [address] Glucose [Mass/Vol] 149 mg/dL High 74-106 [facility] Comment on above: Result Comment: Fast ing Glucose result greater than or equal to 126 mg/dL suggests DIABETES MELLITUS per A.D.A. criteria. Performed By: #### L 500.2500, L100.0500 #### [facility] [address] [place], [address] Potassium [Moles/Vol] 4.4 mmol/L Normal 3.5-5.1 [facility] Comment on above: Performed By: #### L 500.2500, L100.0500 #### [facility] [address] [place], [address] Sodium [Moles/Vol] 135 mmol/L Low 136-145 [facility] Comment on above: Performed By: #### L 500.2500, L100.0500 #### [facility] [address] [place], [address] Urea nitrogen [Mass/Vol] 17 mg/dL Normal 7-18 [facility] Comment on above: Performed By: #### L 500.2500, L100.0500 #### [facility] [address] [place], [address] CBC W/Diff, Automatedon 05-19 Absolute Lymph 1.10 X10 3/uL Normal 0.83-4.51 [facility] Comment on above: Performed By: #### L 500.2500, L100.0500 #### [facility] [address] [place], [address] Absolute Neut 14.7 X10 3/uL High 2.0-7.7 [facility] Comment on above: Performed By: #### L 500.2500, L100.0500 #### [facility] [address] [place], [address] Basophils/100 WBC (Bld) 0.1 % Normal 0-1 [facility] Comment on above: Performed By: #### L 500.2500, L100.0500 #### [facility] [address] [place], [address] Eosinophils/100 WBC (Bld) 0.0 % Normal 0-5 [facility] Comment on above: Performed By: #### L 500.2500, L100.0500 #### [facility] [address] [place], [address] Erythrocyte distribution width (RBC) [Ratio] 13.0 % Normal 11.6-14.6 [facility] Comment on above: Performed By: #### L 500.2500, L100.0500 #### [facility] [address] [place], [address] Hematocrit (Bld) [Volume fraction] 46.5 % Normal 40-54 [facility] Comment on above: Performed By: #### L 500.2500, L100.0500 #### [facility] [address] [place], [address] Hemoglobin (Bld) [Mass/Vol] 15.2 g/dL Normal 13.0-16.5 [facility] Comment on above: Performed By: #### L 500.2500, L100.0500 #### [facility] [address] [place], [address] IG% 1.100 High 0.0-0.9 [facility] Comment on above: Result Comment: IG% - Immature Granulocytes (promyelocytes, myelocytes and metamyelocytes) > 1% indicates that a LEFT SHIFT is Present. Performed By: #### L 500.2500, L100.0500 #### [facility] Laboratory [address] [place], [address] Lymphocytes/100 WBC (Bld) 6.7 % Low 19-41 [facility] Comment on above: Performed By: #### L 500.2500, L100.0500 #### [facility] Laboratory [address] [place], [address] MCH (RBC) [Entitic mass] 31.8 pg Normal 27.0-32.0 [facility] Comment on above: Performed By: #### L 500.2500, L100.0500 #### [facility] Laboratory [address] [place], [address] MCHC (RBC) [Mass/Vol] 32.7 g/dL Normal 32-36 [facility] Comment on above: Performed By: #### L 500.2500, L100.0500 #### [facility] Laboratory [address] [place], [address] MCV (RBC) [Entitic vol] 97.3 fL High 80-94 [facility] Comment on above: Performed By: #### L 500.2500, L100.0500 #### [facility] Laboratory [address] [place], [address] Monocytes/100 WBC (Bld) 3.0 % Normal 0-10 [facility] Comment on above: Performed By: #### L 500.2500, L100.0500 #### [facility] Laboratory [address] [place], [address] Neutrophils/100 WBC (Bld) 89.1 % High 47-70 [facility] Comment on above: Performed By: #### L 500.2500, L100.0500 #### [facility] Laboratory [address] [place], [address] Nucleated RBC (Bld) [#/Vol] 0 10*3/uL Normal 0-5 [facility] Comment on above: Performed By: #### L 500.2500, L100.0500 #### [facility] Laboratory [address] [place], [address] Platelet mean volume (Bld) [Entitic vol] 9.4 fL Normal 6.2-12.0 [facility] Comment on above: Performed By: #### L 500.2500, L100.0500 #### [facility] Laboratory [address] [place], [address] Platelets (Bld) [#/Vol] 377 10*3/uL Normal 150-450 [facility] Comment on above: Performed By: #### L 500.2500, L100.0500 #### [facility] Laboratory [address] [place], [address] RBC (Bld) [#/Vol] 4.78 10*6/uL Normal 4.6-6.2 [facility] Comment on above: Performed By: #### L 500.2500, L100.0500 #### [facility] Laboratory [address] [place], [address] RDW SD 46.9 fl High 35.1-43.9 [facility] Comment on above: Performed By: #### L 500.2500, L100.0500 #### [facility] Laboratory [address] [place], [address] WBC (Bld) [#/Vol] 16.5 10*3/uL High 4.4-11.0 [facility] Comment on above: Performed By: #### L 500.2500, L100.0500 #### [facility] Laboratory [address] [place], [address] Discharge Instructionon 05-19 Discharge Instruction [facility] Medical Records Department [address] [place] [address] Instructions for Home/Discharge Instructions 05/29/24 1243 MR#: [id number] Acct: [id number] Name: MELCHOR LYLE Rep #: [id number] : 1960 63 From: Madiha Razo MD PCP: [place] [facility] Status:ADM IN Discharge Instructions Diet Discharge [...] Attending Provider: Madiha Razo Primary Care Provider: [facility] Instructions Patient Instructions: Asthma and COPD, COPD [...] -For your continued congestion please obtain Mucinex [id number] to help with your congestion symptoms -Continue to use your albuterol inhaler as needed, we discussed nebulizers and per discussion you will follow-up with your [place] doctors for this -Please call your primary care provider's office upon discharge to schedule a hospital follow up within 1 week. -For any concerning signs or symptoms please call 911 or proceed to the nearest emergency department Discharge Orders/Prescription s Prescriptions: New levofloxacin 750 mg tablet 750 [...] Becker MD [Non-Staff] - Within 1 Week [facility] [Primary Care Provider] - Disposition Disposition (needs filled in before D/C Order can be placed): Home, Self Care 05/29/24 1251 Madiha Razo MD CC: [facility] Signed Normal [facility] Respiratory Cultureon 2023 RESPC Pseudomonas aeruginosa Amount Growth 1+ Pseudomonas aeruginosa: REACTION Aztreonam Islt KB 27 S Pseudomonas aeruginosa: REACTION Amikacin Islt ARMAAN <=2 S Cefepime Islt ARMAAN 2 S Ciprofloxacin Islt ARMAAN <=0.25 S Imipenem Islt ARMAAN 1 S levoFLOXacin Islt ARMAAN 0.5 S Meropenem Islt ARMAAN <=0.25 S Pip+Tazo Islt ARMAAN 8 S Tobramycin Islt ARMAAN <=1 S Normal [facility] Comment on above: Performed By: #### L 500.2500, L100.0500 #### [facility] Laboratory [address] [place], [address] Basic Metabolic Profile (BMP )on 05-28-2024 BUN/CRE 13.9 RATIO Normal 07-07 [facility] Comment on above: Performed By: #### L 500.2500, L100.0500 #### [facility] Laboratory [address] [place], [place], [address] CA,Total 9.4 mg/dL Normal 8.5-10.1 [facility] Comment on above: Performed By: #### L 500.2500, L100.0500 #### [facility] Laboratory [address] [place], [address] Chloride [Moles/Vol] 102 mmol/L Normal 98-107 [facility] Comment on above: Performed By: #### L 500.2500, L100.0500 #### [facility] Laboratory [address] [place], [address] CO2 [Moles/Vol] 25.0 mmol/L Normal 21.0-32.0 [facility] Comment on above: Performed By: #### L 500.2500, L100.0500 #### [facility] Laboratory [address] [place], [address] Creatinine [Mass/Vol] 1.01 mg/dL Normal 0.70-1.30 [facility] Comment on above: Result Comment: The validity of the calculated GFR GFRAA in patients over 70 years has not been determined. Clinical correlation is essential. Performed By: #### L 500.2500, L100.0500 #### [facility] Laboratory [address] [place], [address] ECRCL 74.94 ml/min Normal [facility] Comment on above: Performed By: #### L 500.2500, L100.0500 #### [facility] Laboratory [address] [place], [address] EST GFR - AA 95 mL/min Normal >60 [facility] Comment on above: Result Comment: Afri can Citizen [place] GFR Calc Performed By: #### L 500.2500, L100.0500 #### [facility] Laboratory [address] [place], [address] GAP 7 Normal 5-15 [facility] Comment on above: Performed By: #### L 500.2500, L100.0500 #### [facility] Laboratory [address] [place], [address] GFR/1.73 sq M.predicted among non-blacks MDRD (S/P/Bld) [Vol rate/Area] 79 mL/min/{1.73_m2} Normal >60 [facility] Comment on above: Result Comment: Non- GFR Calc Performed By: #### L 500.2500, L100.0500 #### [facility] Laboratory [address] [place], [address] Glucose [Mass/Vol] 139 mg/dL High 74-106 [facility] Comment on above: Result Comment: Fast ing Glucose result greater than or equal to 126 mg/dL suggests DIABETES MELLITUS per A.D.A. criteria. Performed By: #### L 500.2500, L100.0500 #### [facility] Laboratory [address] [place], [address] Potassium [Moles/Vol] 3.9 mmol/L Normal 3.5-5.1 [facility] Comment on above: Performed By: #### L 500.2500, L100.0500 #### [facility] Laboratory [address] [place], [address] Sodium [Moles/Vol] 134 mmol/L Low 136-145 [facility] Comment on above: Performed By: #### L 500.2500, L100.0500 #### [facility] Laboratory [address] [place], [address] Urea nitrogen [Mass/Vol] 14 mg/dL Normal 7-18 [facility] Comment on above: Performed By: #### L 500.2500, L100.0500 #### [facility] Laboratory [address] [place], [address] CBC W/Diff, Automatedon 05-19 0-2023 Absolute Lymph 1.34 X10 3/uL Normal 0.83-4.51 [facility] Comment on above: Performed By: #### L 500.2500, L100.0500 #### [facility] Laboratory [address] [place], [address] Absolute Neut 12.2 X10 3/uL High 2.0-7.7 [facility] Comment on above: Performed By: #### L 500.2500, L100.0500 #### [facility] Laboratory [address] [place], [address] Basophils/100 WBC (Bld) 0.3 % Normal 0-1 [facility] Comment on above: Performed By: #### L 500.2500, L100.0500 #### [facility] Laboratory [address] [place], [address] Eosinophils/100 WBC (Bld) 0.1 % Normal 0-5 [facility] Comment on above: Performed By: #### L 500.2500, L100.0500 #### [facility] Laboratory [address] [place], [address] Erythrocyte distribution width (RBC) [Ratio] 13.0 % Normal 11.6-14.6 [facility] Comment on above: Performed By: #### L 500.2500, L100.0500 #### [facility] Laboratory [address] [place], [address] Hematocrit (Bld) [Volume fraction] 44.4 % Normal 40-54 [facility] Comment on above: Performed By: #### L 500.2500, L100.0500 #### [facility] Laboratory [address] [place], [address] Hemoglobin (Bld) [Mass/Vol] 14.9 g/dL Normal 13.0-16.5 [facility] Comment on above: Performed By: #### L 500.2500, L100.0500 #### [facility] Laboratory [address] [place], [address] IG% 0.600 Normal 0.0-0.9 [facility] Comment on above: Result Comment: IG% - Immature Granulocytes (promyelocytes, myelocytes and metamyelocytes) > 1% indicates that a LEFT SHIFT is Present. Performed By: #### L 500.2500, L100.0500 #### [facility] Laboratory [address] [place], [address] Lymphocytes/100 WBC (Bld) 9.2 % Low 19-41 [facility] Comment on above: Performed By: #### L 500.2500, L100.0500 #### [facility] Laboratory [address] [place], [address] MCH (RBC) [Entitic mass] 32.2 pg High 27.0-32.0 [facility] Comment on above: Performed By: #### L 500.2500, L100.0500 #### [facility] Laboratory [address] [place], [address] MCHC (RBC) [Mass/Vol] 33.6 g/dL Normal 32-36 [facility] Comment on above: Performed By: #### L 500.2500, L100.0500 #### [facility] Laboratory [address] [place], [address] MCV (RBC) [Entitic vol] 95.9 fL High 80-94 [facility] Comment on above: Performed By: #### L 500.2500, L100.0500 #### [facility] Laboratory [address] [place], [address] Monocytes/100 WBC (Bld) 6.5 % Normal 0-10 [facility] Comment on above: Performed By: #### L 500.2500, L100.0500 #### [facility] Laboratory [address] [place], [address] Neutrophils/100 WBC (Bld) 83.3 % High 47-70 [facility] Comment on above: Performed By: #### L 500.2500, L100.0500 #### [facility] Laboratory [address] [place], [address] Nucleated RBC (Bld) [#/Vol] 0 10*3/uL Normal 0-5 [facility] Comment on above: Performed By: #### L 500.2500, L100.0500 #### [facility] Laboratory [address] [place], [address] Platelet mean volume (Bld) [Entitic vol] 9.4 fL Normal 6.2-12.0 [facility] Comment on above: Performed By: #### L 500.2500, L100.0500 #### [facility] Laboratory [address] [place], [address] Platelets (Bld) [#/Vol] 367 10*3/uL Normal 150-450 [facility] Comment on above: Performed By: #### L 500.2500, L100.0500 #### [facility] Laboratory [address] [place], [address] RBC (Bld) [#/Vol] 4.63 10*6/uL Normal 4.6-6.2 [facility] Comment on above: Performed By: #### L 500.2500, L100.0500 #### [facility] Laboratory [address] [place], [address] RDW SD 45.8 fl High 35.1-43.9 [facility] Comment on above: Performed By: #### L 500.2500, L100.0500 #### [facility] Laboratory [address] [place], [address] WBC (Bld) [#/Vol] 14.6 10*3/uL High 4.4-11.0 [facility] Comment on above: Performed By: #### L 500.2500, L100.0500 #### [facility] Laboratory [address] [place], [address] Magnesiumon 05-28-2024 Magnesium [Mass/Vol] 2.3 mg/dL Normal 1.6-2.6 [facility] Comment on above: Performed By: #### L 500.2500, L100.0500 #### [facility] Laboratory [address] [place], [address] Phosphoruson 05-28-2024 Phosphate [Mass/Vol] 4.1 mg/dL Normal 2.5-4.9 [facility] Comment on above: Performed By: #### L 500.2500, L100.0500 #### [facility] Laboratory [address] [place], [address] Thyroid Stim Hormone (TSH)on 05-28-2024 TSH 0.502 uIU/mL Normal 0.358-3.740 [facility] Comment on above: Performed By: #### L 500.2500, L100.0500 #### [facility] Laboratory [address] [place], [address] 12 Lead EKGon 05-27-2024 12 Lead EKG [facility] Cardiovascular Services [address] [place] [address] 12 Lead EKG 05/27/24 0728 MR#: [id number] Acct: [id number] Name: MELCHOR LYLE Rep #: [id number] : 1960 63 From: Vance Gomez MD Attending Dr: Dr. Madiha Razo MD Status: ADM IN Ordering Dr: Mike Headley DO Date: 05/27/24 Location: [facility] Sex: M C Admitted: 05/27/24 Test Reason : SOB Blood Pressure : / mmHG Vent. Rate : 096 BPM Atrial Rate : 096 BPM P-R Int : 168 ms QRS Dur : 068 ms QT Int : 324 ms P-R-T Axes : 031 030 052 degrees QTc Int : 409 ms Normal sinus rhythm Normal ECG Confirmed by NADINE TERAN, VANCE ([id number]), editor city HUMZA CANO ([id number]) on 05/28/2024 7:34:34 AM Referred By: DH Confirmed By:VANCE GOMEZ MD 05/28/24 0734 Date Vance Gomez MD CC: Dr. Mike Headley DO; Dr. Madiha Razo MD; [facility] Signed Normal [facility] BNP,B-Type NATRIURETIC PEPTI Jeovany 05-27-2024 Natriuretic peptide B (Bld) [Mass/Vol] 6.5 pg/mL Normal 0-100 [facility] Comment on above: Performed By: #### L 500.2500, L100.0500 #### [facility] Laboratory [address] [place], [address] Basic Metabolic Profile (BMP )on 05-27-2024 BUN/CRE 12.8 RATIO Normal 10-20 [facility] Comment on above: Order Comment: 'TROP ' Serial specimen #1, #2 or #3: 1 Performed By: #### L 500.2500, L100.0500 #### [facility] Laboratory [address] [place], [address] CA,Total 9.6 mg/dL Normal 8.5-10.1 [facility] Comment on above: Order Comment: 'TROP ' Serial specimen #1, #2 or #3: 1 Performed By: #### L 500.2500, L100.0500 #### [facility] Laboratory [address] [place], [address] Chloride [Moles/Vol] 102 mmol/L Normal 98-107 [facility] Comment on above: Order Comment: 'TROP ' Serial specimen #1, #2 or #3: 1 Performed By: #### L 500.2500, L100.0500 #### [facility] Laboratory [address] [place], [address] CO2 [Moles/Vol] 27.0 mmol/L Normal 21.0-32.0 [facility] Comment on above: Order Comment: 'TROP ' Serial specimen #1, #2 or #3: 1 Performed By: #### L 500.2500, L100.0500 #### [facility] Laboratory [address] [place], [address] Creatinine [Mass/Vol] 1.09 mg/dL Normal 0.70-1.30 [facility] Comment on above: Order Comment: 'TROP ' Serial specimen #1, #2 or #3: 1 Result Comment: The validity of the calculated GFR GFRAA in patients over 70 years has not been determined. Clinical correlation is essential. Performed By: #### L 500.2500, L100.0500 #### [facility] Laboratory [address] [place], [address] ECRCL 70.18 ml/min Normal [facility] Comment on above: Order Comment: 'TROP ' Serial specimen #1, #2 or #3: 1 Performed By: #### L 500.2500, L100.0500 #### [facility] Laboratory [address] [place], [address] EST GFR - AA 87 mL/min Normal >60 [facility] Comment on above: Order Comment: 'TROP ' Serial specimen #1, #2 or #3: 1 Result Comment: Afri can Citizen [place] GFR Calc Performed By: #### L 500.2500, L100.0500 #### [facility] Laboratory [address] [place], [address] GAP 8 Normal 5-15 [facility] Comment on above: Order Comment: 'TROP ' Serial specimen #1, #2 or #3: 1 Performed By: #### L 500.2500, L100.0500 #### [facility] Laboratory [address] [place], [address] GFR/1.73 sq M.predicted among non-blacks MDRD (S/P/Bld) [Vol rate/Area] 72 mL/min/{1.73_m2} Normal >60 [facility] Comment on above: Order Comment: 'TROP ' Serial specimen #1, #2 or #3: 1 Result Comment: Non- GFR Calc Performed By: #### L 500.2500, L100.0500 #### [facility] Laboratory [address] [place], [address] Glucose [Mass/Vol] 157 mg/dL High 74-106 [facility] Comment on above: Order Comment: 'TROP ' Serial specimen #1, #2 or #3: 1 Result Comment: Fast ing Glucose result greater than or equal to 126 mg/dL suggests DIABETES MELLITUS per A.D.A. criteria. Performed By: #### L 500.2500, L100.0500 #### [facility] Laboratory [address] [place], [address] Potassium [Moles/Vol] 4.4 mmol/L Normal 3.5-5.1 [facility] Comment on above: Order Comment: 'TROP ' Serial specimen #1, #2 or #3: 1 Performed By: #### L 500.2500, L100.0500 #### [facility] Laboratory [address] [place], [address] Sodium [Moles/Vol] 137 mmol/L Normal 136-145 [facility] Comment on above: Order Comment: 'TROP ' Serial specimen #1, #2 or #3: 1 Performed By: #### L 500.2500, L100.0500 #### [facility] Laboratory [address] [place], [address] Urea nitrogen [Mass/Vol] 14 mg/dL Normal 7-18 [facility] Comment on above: Order Comment: 'TROP ' Serial specimen #1, #2 or #3: 1 Performed By: #### L 500.2500, L100.0500 #### [facility] Laboratory [address] [place], [address] CBC W/Diff, Automatedon 09-0 9-4 Absolute Lymph 1.40 X10 3/uL Normal 0.83-4.51 [facility] Comment on above: Performed By: #### L 500.2500, L100.0500 #### [facility] Laboratory [address] [place], [address] Absolute Neut 10.6 X10 3/uL High 2.0-7.7 [facility] Comment on above: Performed By: #### L 500.2500, L100.0500 #### [facility] Laboratory [address] [place], [address] Basophils/100 WBC (Bld) 0.8 % Normal 0-1 [facility] Comment on above: Performed By: #### L 500.2500, L100.0500 #### [facility] Laboratory [address] [place], [address] Eosinophils/100 WBC (Bld) 2.9 % Normal 0-5 [facility] Comment on above: Performed By: #### L 500.2500, L100.0500 #### [facility] Laboratory [address] [place], [address] Erythrocyte distribution width (RBC) [Ratio] 12.8 % Normal 11.6-14.6 [facility] Comment on above: Performed By: #### L 500.2500, L100.0500 #### [facility] Laboratory [address] [place], [address] Hematocrit (Bld) [Volume fraction] 50.9 % Normal 40-54 [facility] Comment on above: Performed By: #### L 500.2500, L100.0500 #### [facility] Laboratory [address] [place], [address] Hemoglobin (Bld) [Mass/Vol] 17.0 g/dL High 13.0-16.5 [facility] Comment on above: Performed By: #### L 500.2500, L100.0500 #### [facility] Laboratory [address] [place], [address] IG% 0.500 Normal 0.0-0.9 [facility] Comment on above: Result Comment: IG% - Immature Granulocytes (promyelocytes, myelocytes and metamyelocytes) > 1% indicates that a LEFT SHIFT is Present. Performed By: #### L 500.2500, L100.0500 #### [facility] Laboratory [address] [place], [address] Lymphocytes/100 WBC (Bld) 10.6 % Low 19-41 [facility] Comment on above: Performed By: #### L 500.2500, L100.0500 #### [facility] Laboratory [address] [place], [address] MCH (RBC) [Entitic mass] 32.0 pg Normal 27.0-32.0 [facility] Comment on above: Performed By: #### L 500.2500, L100.0500 #### [facility] Laboratory [address] [place], [address] MCHC (RBC) [Mass/Vol] 33.4 g/dL Normal 32-36 [facility] Comment on above: Performed By: #### L 500.2500, L100.0500 #### [facility] Laboratory [address] [place], [address] MCV (RBC) [Entitic vol] 95.7 fL High 80-94 [facility] Comment on above: Performed By: #### L 500.2500, L100.0500 #### [facility] Laboratory [address] [place], [address] Monocytes/100 WBC (Bld) 5.1 % Normal 0-10 [facility] Comment on above: Performed By: #### L 500.2500, L100.0500 #### [facility] Laboratory [address] [place], [address] Neutrophils/100 WBC (Bld) 80.1 % High 47-70 [facility] Comment on above: Performed By: #### L 500.2500, L100.0500 #### [facility] Laboratory [address] [place], [address] Nucleated RBC (Bld) [#/Vol] 0 10*3/uL Normal 0-5 [facility] Comment on above: Performed By: #### L 500.2500, L100.0500 #### [facility] Laboratory [address] [place], [address] Platelet mean volume (Bld) [Entitic vol] 9.0 fL Normal 6.2-12.0 [facility] Comment on above: Performed By: #### L 500.2500, L100.0500 #### [facility] Laboratory [address] [place], [address] Platelets (Bld) [#/Vol] 359 10*3/uL Normal 150-450 [facility] Comment on above: Performed By: #### L 500.2500, L100.0500 #### [facility] Laboratory [address] [place], [address] RBC (Bld) [#/Vol] 5.32 10*6/uL Normal 4.6-6.2 [facility] Comment on above: Performed By: #### L 500.2500, L100.0500 #### [facility] Laboratory [address] [place], [address] RDW SD 45.3 fl High 35.1-43.9 [facility] Comment on above: Performed By: #### L 500.2500, L100.0500 #### [facility] Laboratory [address] [place], [address] WBC (Bld) [#/Vol] 13.2 10*3/uL High 4.4-11.0 [facility] Comment on above: Performed By: #### L 500.2500, L100.0500 #### [facility] Laboratory [address] [place], [address] Chest 1 View (Portable)on Chest 1 View (Portable) [facility] Imaging Services [address] [place] [place] [id number] Chest 1 View (Portable) MR#: [id number] Acct: [id number] Name: MELCHOR LYLE Rep #: [id number] : 1960 M 63 From: Faustino Alanis PCP: [facility] Status: REG ER Study: Chest 1 View (Portable) Date of Exam: 05/27/24 Exam# [id number] Ordering Dr: Mike Headley DO -[id number] INDICATION: cough/dyspnea EXAMINATION/TECHNIQ UE: X-RAY - XR Chest 1 View COMPARISON: Prior study dated: 05/11/2023 FINDINGS: LINES/DEVICES: None. LUNGS: No consolidation, edema or effusion. No pneumothorax. MEDIASTINUM AND CARDIOVASCULAR STRUCTURES: Cardiac silhouette not enlarged. Central airways and mediastinal contour are unremarkable. BONES AND SOFT TISSUES: Unremarkable. RAD/Chest 1 View (Portable) IMPRESSION: No radiographic evidence of acute cardiopulmonary disease. Electronically Signed: Faustino Farooq MD at 8:38 EDT , CC: Dr. Mike Headley DO; [facility] [employer]: Signed Normal [facility] Emergency Department Summary on 05-27-2024 Emergency Department Summary [facility] Medical Records Department [address] [address] Emergency Department Summary 05/27/24 MR#: [id number] Acct: [id number] Name: MELCHOR LYLE Rep #: [id number] : 1960 63 From: Mike Headley DO PCP: [facility] Status:ADM IN Location: [facility] [id number] HPI History of Present Illness Chief Complaint: [...] the past couple days. He sees the [facility] in [place]. No vomiting or diarrhea. Denies any chest pain. [facility] Medical History Hypertension Home Medications ???Medication [...] Endocrine Endocrinology: Denies polydipsia, polyphagia or polyuria Allergic/Immunologi c Allergic/Immunologi c ED: Denies mouth swelling, tongue swelling or [...] intact bilaterally (more content not included)... Normal [facility] Gram Stainon 05-27-2024 GS Acceptable Specimen? Yes (<25 Epithelial cells per/lpf) Gram Stain 1+ White Blood Cells 2+ Epithelial cells 3+ Gram positive cocci in chains and clusters 1+ Gram positive rods 1+ Gram negative rods Normal [facility] Comment on above: Performed By: #### L 500.2500, L100.0500 #### [facility] Laboratory [address] [place], [place], [address] H AND P Exam - Hospitaliston 05-27-2024 H&P Exam - Hospitalist [facility] Medical Records Department [address] [place] [address] H P Exam - Hospitalist 05/27/24 1001 MR#: [id number] Acct: [id number] Name: MELCHOR LYLE Rep #: [id number] : 1960 63 From: Madiha Razo MD PCP: [facility] Status:[id number] - General General Date of Admission: 05/27/24 Date of Service: 05/27/24 Chief Complaint: Increasing shortness of breath HPI Narrative MELCHOR LYLE, is a 63 M with seasonal allergies and hypertension as well as suspected COPD and tobacco use who presented to [facility] ED 05/27/2024 with increasing shortness of [...] denies any other new or acute complaints. [facility] Medical History Hypertension Home Medications ???Medication ???Instructions [...] edema Musc (more content not included)... Normal [facility] L501.4020on 05-27-2024 TROPONIN-I HS 5 pg/mL Normal 3.0-78.0 [facility] Comment on above: Order Comment: 'TROP ' Serial specimen #1, #2 or #3: 1 Result Comment: Michaelle michele Note: New Test Units and Gender Specific Reference Ranges. For more information see Policy Stat Procedure [place] High Sensitivity Troponin (TNIH) and attachments. Performed By: #### L 500.2500, L100.0500 #### [facility] [address] [place], [address] M100.678on 05-27-2024 M100.678 Pending SARS-CoV-2 (COVID 19) Negative INFLUENZA A Negative INFLUENZA B Negative RSV PCR Negative Normal [facility] Comment on above: Performed By: #### L 500.2500, L100.0100 #### [facility] Laboratory [address] [place], [place], [id number] RESPIRATORY PANEL MOLECULARo n 05-27-2024 RP PANEL [...] Not Detected RSV B Not Detected Normal [facility] Comment on above: Performed By: #### L 500.2500, L100.0100 #### [facility] Laboratory [address] [place], [place], [id number] Absolute lymphocyte countOrd ered By: Linsey Spivey on 05-13-2023 Lymphocytes Auto (Unsp spec) [#/Vol] 0.84 10*3/uL 0.83-4.51 [facility] Basophil percentageOrdered B y: Linsey Patric on 05-13-2023 Basophils/100 WBC (Bld) 0.3 % 0-1 [facility] Bilirubin [Mass/Vol] 0.50 mg/dL 0.20-1.00 [facility] Comment on above: For patients on eltr ombopag therapy, use of Dimension [place] TBIL is not recommended. Chloride [Moles/Vol] 99 mmol/L 98-107 [facility] Eosinophils/100 WBC (Bld) 0.0 % 0-5 [facility] Glucose [Mass/Vol] 148 mg/dL 74-106 [facility] Comment on above: Fasting Glucose resu lt greater than or equal to 126 mg/dL suggests DIABETES MELLITUS per A.D.A. criteria. Neutrophils (Bld) [#/Vol] 10.6 10*3/uL 2.0-7.7 [facility] Neutrophils/100 WBC (Bld) 90.1 % 47-70 [facility] Potassium [Moles/Vol] 4.5 mmol/L 3.5-5.1 [facility] Protein [Mass/Vol] 8.6 g/dL 6.4-8.2 [facility] Sodium [Moles/Vol] 135 mmol/L 136-145 [facility] WBC (Bld) [#/Vol] 11.7 10*3/uL 4.4-11.0 [facility] Blood erythrocytes count (nu mber/volume)Ordered By: Linsey Spivey on 05-13-2023 RBC (Bld) [#/Vol] 4.74 10*6/uL 4.6-6.2 [facility] Blood hemoglobin measurement (mass/volume)Ordered By: Linsey Spivey on 05-13-2023 Hemoglobin (Bld) [Mass/Vol] 15.4 g/dL 13.0-16.5 [facility] Blood lymphocytes/100 leukoc ytesOrdered By: Linsey Spivey on 05-13-2023 Lymphocytes/100 WBC (Bld) 7.2 % 19-41 [facility] Blood monocytes/100 leukocyt esOrdered By: Linsey Spivey on 05-13-2023 Monocytes/100 WBC (Bld) 1.5 % 0-10 [facility] Blood platelet mean volumeOr dered By: Linsey Spivey on 05-13-2023 Platelet mean volume (Bld) [Entitic vol] 9.6 fL 6.2-12.0 [facility] Determination of erythrocyte mean corpuscular volume (MCV)Ordered By: Linsey Spivey on 05-13-2023 MCV (RBC) [Entitic vol] 98.9 fL 80-94 [facility] Hematocrit Auto (Bld) [Volum e fraction]Ordered By: Linsey Spivey on 05-13-2023 Hematocrit (Bld) [Volume fraction] 46.9 % 40-54 [facility] Laboratory - Chemistry and C hemistry - challengeOrdered By: Linsey Spivey on 05-13-2023 ALP [Catalytic activity/Vol] 73 U/L 45-117 [facility] ALT [Catalytic activity/Vol] 38 U/L 16-61 [facility] CO2 [Moles/Vol] 28.0 mmol/L 21.0-32.0 [facility] Globulin (S) [Mass/Vol] 4.8 g/dL 2.2-4.2 [facility] Urea nitrogen/Creatinine [Mass ratio] 15.4 mg/mg 10-20 [facility] Laboratory - Hematology and Cell countsOrdered By: Linsey Spivey on 05-13-2023 Erythrocyte distribution width (RBC) [Entitic vol] 48.9 fL 35.1-43.9 [facility] Erythrocyte distribution width (RBC) [Ratio] 13.4 % 11.6-14.6 [facility] Immature granulocytes/100 WBC (Bld) 0.900 % 0.0-0.9 [facility] Comment on above: IG% - Immature Granu locytes (promyelocytes, myelocytes and metamyelocytes) > 1% indicates that a LEFT SHIFT is Present. MCH (RBC) [Entitic mass] 32.5 pg 27.0-32.0 [facility] Nucleated RBC/100 WBC (Bld) [Ratio] 0 % 0-5 [facility] MCHC Auto (RBC) [Mass/Vol]Or dered By: Linsey Spivey on 05-13-2023 MCHC (RBC) [Mass/Vol] 32.8 g/dL 32-36 [facility] No Panel InformationOrdered By: Linsey Spivey on 05-13-2023 Estimated Creatinine Clearance Calc 66.92 ml/min [facility] Estimated GFR (MDRD) Amer 100 mL/min >60 [facility] Comment on above: GFR Calc Estimated GFR (MDRD) Non-Af Amer 82 mL/min >60 [facility] Comment on above: Non- GFR Calc Platelets bldOrdered By: Abraham Spivey on 05-13-2023 Platelets (Bld) [#/Vol] 300 10*3/uL 150-450 [facility] Serum or plasma albumin doni urement (mass/volume)Ordered By: Linsey Spivey on 05-13-2023 Albumin [Mass/Vol] 3.8 g/dL 3.2-5.0 [facility] Serum or plasma albumin/glob ulin mass ratioOrdered By: Linsey Spivey on 05-13-2023 Albumin/Globulin [Mass ratio] 0.8 {ratio} 0.9-2.4 [facility] Serum or plasma calcium doni urement (mass/volume)Ordered By: Linsey Spivey on 05-13-2023 Calcium [Mass/Vol] 9.4 mg/dL 8.5-10.1 [facility] Serum or plasma creatinine m easurement (mass/volume)Ordered By: Linsey Spivey on 05-13-2023 Creatinine [Mass/Vol] 0.97 mg/dL 0.70-1.30 [facility] Comment on above: The validity of the calculated GFR & GFRAA in patients over 70 years has not been determined. Clinical correlation is essential. Serum or plasma urea nitroge n measurement (mass/volume)Ordered By: Linsey Spivey on 05-13-2023 Urea nitrogen [Mass/Vol] 15 mg/dL 7-18 [facility] Thin prep Papanicolaou smear with manual screeningOrdered By: [facility] Patric on 05-13-2023 Thin prep Papanicolaou smear with manual screening 20 U/L 15-37 [facility] Thin prep Papanicolaou smear with manual screening 8 5-15 [facility] Gram stain for investigation of transfusion reactionOrdered By: Chino Sandoval on 05-12-2023 Microscopic observation Gram stain Nom (Unsp spec) [facility] Serum procalcitonin measurem entOrdered By: Linsey Spivey on 05-12-2023 Procalcitonin [Mass/Vol] 0.10 ng/mL 0.00-0.09 [facility] Comment on above: A procalcitonin (PCT [...] INR Coag (Bld) [Relative time] 1.0 {INR} [facility] - CoagulationOrde red By: Frederick Cervantes on 05-11-2023 aPTT Coag (Bld) [Time] 26.3 s 24.1-36.2 [facility] PT Coag (PPP) [Time] 13.2 s 11.7-14.9 [facility] No Panel InformationOrdered By: Frederick Cervantes on 05-11-2023 Troponin I High Sensitivity 4 pg/mL 3.0-78.0 [facility] Comment on above: Please Note: New Valeria t Units and Gender Specific Reference Ranges. For more information see Policy Stat Procedure [place] High Sensitivity Troponin (TNIH) and attachments. D-Dimer Quantitative (PE/DVT) 0.33 FEU/ug/m 0.27-0.49 [facility] Comment on above: NORMAL D-Dimer level (<0.50) indicates no DVT or PE. Vital Signs Date Time Vital Sign Value Performing Clinician Faci lity 04-22-2025 12:47-0400 Body temperature 98.3 [degF] [facility] 04-22-2025 12:47-0400 Diastolic blood pressure 77 mm[Hg] [facility] 04-22-2025 12:47-0400 Heart rate 102 /min [facility] 04-22-2025 12:47-0400 Respiratory rate 18 /min [facility] 04-22-2025 12:47-0400 SaO2% (BldA) [Mass fraction] 92 % [facility] 04-22-2025 12:47-0400 Systolic blood pressure 150 mm[Hg] [facility] 04-22-2025 09:13-0400 Inhaled oxygen flow rate 3 L/min [facility] 04-22-2025 05:20-0400 Body mass index (BMI) [Ratio] 32.3 kg/m2 [facility] 04-22-2025 05:20-0400 Body weight 89.5 kg [facility] 04-21-2025 09:14-0400 Body height 166.37 cm [facility] 04-20-2025 15:43-0400 Body temperature 97.8 [degF] [facility] 04-20-2025 15:43-0400 Diastolic blood pressure 86 mm[Hg] [facility] 04-20-2025 15:43-0400 Heart rate 98 /min [facility] 04-20-2025 15:43-0400 Inhaled oxygen flow rate 2 L/min [facility] 04-20-2025 15:43-0400 Respiratory rate 22 /min [facility] 04-20-2025 15:43-0400 SaO2% (BldA) [Mass fraction] 95 % [facility] 04-20-2025 15:43-0400 Systolic blood pressure 149 mm[Hg] [facility] 04-20-2025 15:42-0400 Body height 166.37 cm [facility] 04-20-2025 15:42-0400 Body mass index (BMI) [Ratio] 31.9 kg/m2 [facility] 04-20-2025 15:42-0400 Body weight 88.4 kg [facility] 05-13-2023 12:08-0400 SaO2% (BldA) [Mass fraction] 91 % [facility] 05-13-2023 11:17-0400 Heart rate 89 /min [facility] 05-13-2023 11:17-0400 Respiratory rate 20 /min [facility] 05-13-2023 09:05-0400 Inhaled oxygen flow rate 2 L/min [facility] 05-13-2023 09:04-0400 Body temperature 98.3 [degF] [facility] 05-13-2023 09:04-0400 Diastolic blood pressure 72 mm[Hg] [facility] 05-13-2023 09:04-0400 Systolic blood pressure 143 mm[Hg] [facility] 05-11-2023 20:15-0400 Body height 165.1 cm [facility] 05-11-2023 20:15-0400 Body mass index (BMI) [Ratio] 31.1 kg/m2 [facility] 05-11-2023 20:15-0400 Body weight 84.8 kg [facility] Encounters Encounter Date Encounter Type Care Provider Facility Start: 04-22-2025 Non-patient / Non-visit Dr. Luis stanford MD -[facility] Work Phone: Start: 04-21-2025 Non-patient / Non-visit Dr. Eric NARAYANAN -[facility] Work Phone: Start: 04-20-2025 ambulatory [facility] Start: 04-20-2025 End: 04-22-2025 Evaluation and management of inpatient Dr. Madiha Razo MD -[facility] Work Phone: Start: 05-27-2024 End: 05-29-2024 Evaluation and management of inpatient [facility] Facility:[facility] Start: 05-27-2024 ambulatory Madiha Razo Facility:[facility] Start: 05-13-2023 Non-patient / Non-visit [facility] Work Phone: Start: 05-12-2023 Non-patient / Non-visit [facility] Start: 05-12-2023 End: 05-13-2023 Evaluation and management of inpatient [facility] Work Phone: Start: 05-11-2023 Non-patient / Non-visit [facility] Work Phone: Procedures Date Procedure Procedure Detail Performing Clinician Start: 04-21-2025 Estimated creatinine clearance [facility] Start: 04-20-2025 Gram stain microscopy [facility] Start: 04-20-2025 Nucleic acid assay [facility] Start: 04-20-2025 SARS-CoV-2, Influenz a & RSV (PCR) [facility] Start: 04-20-2025 Estimated creatinine clearance [facility] Start: 04-20-2025 Plain [facility] Start: 05-12-2023 Investigation of tra nsfusion reaction [facility] Start: 05-11-2023 Plain chest X-ray [facility] Plan of Treatment Date Care Activity Detail Author Start: 04-25-2025 Complete blood count [facility] Start: 04-24-2025 Complete blood count [facility] Start: 04-23-2025 Complete blood count [facility] Start: 04-23-2025 Serum inorganic phosphate measurement [facility] Start: 04-22-2025 Patient discharge [facility] Start: 04-20-2025 [facility] Start: 04-20-2025 Following clinical pathway protocol [facility] Start: 04-20-2025 Assessment of risk of venous thromboembolism [facility] Start: 04-20-2025 Bacteria identified in Sputum by Culture [facility] Start: 04-20-2025 Incentive spirometry [facility] Start: 04-20-2025 Inhalation therapy procedure [facility] Start: 04-20-2025 Insertion of catheter into peripheral vein [facility] Start: 04-20-2025 Measuring intake and output [facility] Start: 04-20-2025 Oxygen therapy [facility] Start: 04-20-2025 Providing care according to standard [facility] Start: 04-20-2025 Provision of activity privileges [facility] Start: 04-20-2025 Referral to service [facility] Start: 04-20-2025 Taking nasal swab [facility] Start: 04-20-2025 [facility] Start: 04-20-2025 Respiratory pathogens DNA and RNA panel - Respiratory specimen by LORRAINE with probe detection [facility] Start: 04-20-2025 Verification routine [facility] Start: 04-20-2025 Admission procedure [facility] Start: 04-20-2025 Respiratory Culture Respiratory Culture [facility] Start: 04-20-2025 [facility] Start: 04-20-2025 Consultation [facility] Start: 04-20-2025 Patient referral to dietitian [facility] Start: 05-13-2023 Patient discharge [facility] Start: 05-13-2023 [facility] Start: 05-13-2023 Physiotherapy of chest [facility] Start: 05-12-2023 Respiratory Culture Respiratory Culture [facility] Start: 05-12-2023 Admission procedure [facility] Start: 05-11-2023 Following clinical pathway protocol [facility] Start: 05-11-2023 Ambulation without limitation [facility] Start: 05-11-2023 Assessment of risk of venous thromboembolism [facility] Start: 05-11-2023 Insertion of catheter into peripheral vein [facility] Start: 05-11-2023 Oxygen therapy [facility] Start: 05-11-2023 Providing care according to standard [facility] Start: 05-11-2023 Referral to occupational therapist [facility] Start: 05-11-2023 Referral to service [facility] Start: 05-11-2023 [facility] Start: 05-11-2023 Admission procedure [facility] Start: 05-11-2023 Consultation [facility] Start: 05-11-2023 Inhalation therapy procedure [facility] Anion gap in Serum o r Plasma [facility] Bacteria identified in Unspecified specimen by Respiratory culture [facility] BUN/Creatinine ratio [facility] Calcium [Mass/volume ] in Serum or Plasma [facility] Carbon dioxide, tota l [Moles/volume] in Central venous blood [facility] Creatinine [Mass/vol ume] in Serum or Plasma [facility] Erythrocyte mean corpuscular volume determination [facility] Glucose [Mass/volume ] in Serum or Plasma [facility] Hematocrit [Volume Fraction] of Blood [facility] Hemoglobin [Mass/vol ume] in Blood [facility] Leukocytes [#/volume ] in Blood [facility] Mean corpuscular hem oglobin concentration determination [facility] Mean corpuscular hem oglobin determination [facility] Measurement of renal function [facility] Microorganism identi fied in Unspecified specimen by Culture [facility] Neutrophil count [facility] Neutrophil percent differential count [facility] Patient Education Chronic Lung D isease Infections Discharge Instructions: COPD [facility] Work Phone: Patient referral [facility] Work Phone: Platelets [#/volume] in Blood [facility] Potassium measurement [facility] Red blood cell count [facility] Red cell distributio n width determination [facility] Serum chloride measurement [facility] Sodium measurement [facility] Urea nitrogen [Mass/ volume] in Serum or Plasma [facility] Payers Date Payer Category Payer Medicare [id number] 2025 Unknown [id number] 2024 Self-pay 2024 Unknown [id number] Unknown [id number] 2.16.8 [id number] Unknown [id number] 2.16.8 [id number] Unknown [id number] 2.16.8 [id number] Unknown [id number] 2.16.8 [id number] Unknown [id number] 2.16.8 [id number] Unknown [id number] 2.16.8 [id number] Unknown [id number] 2.16.8 [id number] Unknown [id number] 2.16.8 [id number] Social History Date Type Detail Facility Start: 05-12-2023 Tobacco smoking stat [facility] Unknown if ever smoked [facility] Start: 1960 Sex Assigned At Male [facility] Start: 04-20-2025 End: 04-21-2025 Tobacco smoking status [facility] Smokes tobacco daily (finding) [facility] Goals Date Patient Goal Desired Activity /State Functional Status Date Assessment Result Facility 04-22-2025 Functional status [facility] Work Phone: 05-13-2023 Functional status [facility] Work Phone: Mental Status Date Assessment Result Facility 04-22-2025 Cognitive function Voice/Name [facility] Work Phone: 05-13-2023 Cognitive function Voice/Name [facility] Work Phone: Clinical Notes 05-12-2023 to 04-22-2025 Note Date & Type Note Facility 04-22-2025 Hospital Discharg e instructions Additional Instructions Date of Discharge: 04/22/25 [facility] Work Phone: 04-22-2025 Discharge summary Note Date/Time April 22, 2025 11:46am [facility] Medical Records Department [address] [place] [address] Discharge Summary 04/22/2512 MR#: [id number] Acct: [id number] Name: MECLHOR LYLE Rep #:[id number] : 1960 64 From: Luis Hernandez MD PCP: [facility] Status:ADM IN Location: [facility] [id number] Providers Date of Admission: 04/20/25 Date of Discharge: 04/22/25 Primary Care Physician: [facility] Reason For Visit: HYPXIA AND COPD EXACERBATION Diagnosis Discharge Diagnosis (1) Hypoxia: Status: Acute Code(s): R09.02 - Hypoxemia (2) Acute exacerbation of chronic obstructive pulmonary disease (COPD): Status: Chronic Code(s): J44.1 - Chronic obstructive pulmonary disease with (acute) exacerbation Medications at Discharge Home Medications diphenhydramine HCl 25 mg tablet (Allergy) 50 mg PO BID PRN ALLERGIES 05/11/23 losartan 50 mg tablet (Cozaar) 50 mg PO DAILY BLOOD PRESSURE 05/11/23 albuterol sulfate 90 mcg/actuation breath activated powder inhaler 2 inh inhalation Q4H PRN SHORTNESS OF BREATH #1 ea 05/13/23 amlodipine 5 mg tablet 5 mg PO DAILY BLOOD PRESSURE 05/27/24 azithromycin 250 mg tablet 500 mg (2 x 250 mg) PO Q24 5 days #10 tabs 04/22/25 guaifenesin 1,200 mg tablet, extended release 12 hr (Mucus Relief ER) 1,200 mg PO BID #20 tabs 04/22/25 prednisone 20 mg tablet 20 mg PO BID #20 tabs 04/22/25 Hospital Course Summary of Care Provided Minutes Spent on Discharge: 35 Hospital Course: Patient is a 64-year-old male who presented to [facility] ED on 04/21/2025 with worsening shortness of breath and cough. 1. Acute hypoxia secondary to acute exacerbation of COPD ?Admitted to a monitored bed managed with bronchodilator treatment systemic steroid and antibiotics. Patient oxygen saturation on admission was 86% on roomair. Patient had previously been discharged home with home oxygen however due to high cost ([facility] did not, with patient continuous use of tobacco) patient refused oxygen on discharge. Case management subsequently consulted ? Patient was assessed for home oxygen which he qualified he however declined swati discharged with oxygen 2. Hypertension ? Blood pressure controlled, home medications continued with dose adjustment as needed 3. Tobacco dependence ? Counseled on cessation, offered nicotine patch for tobacco cravings 4. Seasonal allergies ? Continue Benadryl at night as needed. 5. DVT prophylaxis: Lovenox Physical Exam Narrative GENERAL: cooperative HEENT: Atraumatic; normocephalic EYES; Anicteric, Normal Conjunctiva NECK; supple, normal thyroid, RESPIRATORY: Diminished to auscultation CARDIOVASCULAR: Regular S1 S2, GI: soft, normoactive bowel sounds, : No Renal angle tenderness; EXTREMITIES: No edema, no clubbing, MUSCULOSKELETAL: no muscle wasting NEURO: Awake; no lateralizing signs. SKIN: No Rash PSYCH; Flat affect Weight / BMI Weight Weight: 89.5 kg Body Mass Index (BMI) 32.3 ABG / Lab / Microbiology Data 04/21/25 05:30 04/21/25 05:30 Microbiology: Microbiology 04/20/25 18:50 Sputum, Expectorated/Coughed Gram Stain - Final 04/20/25 16:27 Mucosa - Nose Respiratory Panel (PCR) - Final 04/20/25 12:45 Mucosa - Nose SARS-CoV-2, Influenza & RSV (PCR) - Final D/C Instructions DC O2, CPAP, BIPAP Needs Home O2 Discharge instructions: Yes Type of respiratory needs?: Oxygen Oxygen frequency: With Ambulation Oxygen liters per minute during Ambulation: 3 DC home with Oxygen: Yes Home O2 MD Review: I have reviewed the oxygen testing, and the patient qualifies for home oxygen equipment and portability. The patient is mobile in the home and the community. Patient declined home oxygen despite qualifying Meaningful Use Info Meaningful Use Meaningful Use Diagnoses (Choose all that apply): None applicable Discharge Plan Admission Admit Date/Time: 04/20/25 14:34 Attending Provider: Luis Hernandez Primary Care Provider: [facility] Consulting Providers: Madiha Razo; Chino Sandoval Discharge Orders/Prescriptions Prescriptions: New azithromycin 250 mg Tablet 500 mg PO Q24 5 Days Qty: 10 0RF guaifenesin [Mucus Relief ER] 1,200 mg Tablet Extended Release 12hr 1,200 mg PO BID Qty: 20 0RF prednisone 20 mg tablet 20 mg PO BID Qty: 20 0RF Continued diphenhydramine HCl [Allergy] 25 mg tablet 50 mg PO BID PRN losartan [Cozaar] 50 mg tablet 50 mg PO DAILY albuterol sulfate 90 mcg/actuation aerosol powdr breath activated 2 inh inhalation Q4H PRN (Reason: SHORTNESS OF BREATH ) Qty: 1 0RF amlodipine 5 mg Tablet 5 mg PO DAILY [facility]errals [facility] - Disposition Disposition (needs filled in before D/C Order can be placed): Home, Self Care Charges/Coding Visit Charges Inpatient E&M: 34450 Disch Hosp >30min 04/22/25 1146 <Electronically signed by Luis Hernandez MD> Cosigner Signature (if applicable): CC: Dr. Luis Hernandez MD; [facility]~ Signed [facility] Work Phone: 1(269) 643-203508-05-2025 Consult note Author Lakeshia Hope [facility] Note Date/Time April 22, 2025 11: 05am [facility] Medical Records Department [address] [place] [address] Counseling Note - Pharmacy 04/22/25 1104 MR#: [id number] Acct: [id number] Name: MELCHOR LYLE Kathrine Rep #:[id number] : 1960 64 From: Lakeshia Hope PCP: [facility] Status:ADM IN Y Location: [facility] [id number] 1 Pharmacy [facility] Counseling Pharmacy Service has performed discharge medication reconciliation and counseling for this patient. 1. AZITHROMYCIN 500MG PO DAILY X 5 DAYS 2. GUAIFENESIN 1200MG PO BID 3. PREDNISONE 20MG PO BID X 10 DAYS The patient's discharge medication list was reviewed for discrepancies and discrepancies were resolved. The patient was counseled on the following discharge medications and changes in medications for homegoing were reviewed. The Reason for Use, instructions for use, and potential side effects were reviewed for all new medications. The patient's questions regarding all of their medications were answered. The patient was able to verbally demonstrate an understanding of their dischargemedications. Medications at Discharge Home Medications diphenhydramine HCl 25 mg tablet (Allergy) 50 mg PO BID PRN ALLERGIES 05/11/23 losartan 50 mg tablet (Cozaar) 50 mg PO DAILY BLOOD PRESSURE 05/11/23 albuterol sulfate 90 mcg/actuation breath activated powder inhaler 2 inh inhalation Q4H PRN SHORTNESS OF BREATH #1 ea 05/13/23 amlodipine 5 mg tablet 5 mg PO DAILY BLOOD PRESSURE 05/27/24 azithromycin 250 mg tablet 500 mg (2 x 250 mg) PO Q24 5 days #10 tabs 04/22/25 guaifenesin 1,200 mg tablet, extended release 12 hr (Mucus Relief ER) 1,200 mg PO BID #20 tabs 04/22/25 prednisone 20 mg tablet 20 mg PO BID #20 tabs 04/22/25 04/22/25 1105 <Electronically signed by Lakeshia Hope> Date _ Lakeshia Dyeer Signature (if applicable): Date CC: ~ Signed [facility] Work Phone: 1(762) 768-270908-05-2025 Progress note Author Luis Hernandez [facility] Note Date/Time April 22, 2025 11: 00am [facility] Medical Records Department [address] [place] [address] Progress Note - Hospitalist 04/22/25 1058 MR#: [id number] Acct: [id number] Name: VALDOMELCHOR Kathrine Rep #:[id number] : 1960 64 From: Luis Hernandez MD PCP: [facility] Status:ADM IN Location: [place] [address] Reason for Visit Chief Complaint: Increasing SOB Subjective Subjective Patient is a 64-year-old male who presented to [facility] ED on 04/21/2025 with worsening shortness of breath and cough. Objective Data Objective Data Vital Signs: Vital Signs Temp Pulse Resp BP Pulse Ox O2 Del Method O2 Flow Rate 97.7 F L 69 16 134/70 H 99 Nasal Cannula 3 04/22/25 09:13 04/22/25 09:13 04/22/25 09:13 04/22/25 09:13 04/22/25 09:13 04/22/25 09:13 04/22/25 09:13 Oxygen Flow Rate (L/min) 3 Oxygen Delivery Method Nasal Cannula Weight: 89.5 kg Body Mass Index (BMI) 32.3 Intake & Output: Intake and Output for Last 24 Hours 04/20/25 04/21/25 04/22/25 23:59 23:59 23:59 Intake Total 600 / 600 400 / 400 Balance 600 / 600 400 / 400 Lab / Micro Data 04/21/25 05:30 04/21/25 05:30 Micro: Microbiology 04/20/25 18:50 Sputum, Expectorated/Coughed Gram Stain - Final 04/20/25 16:27 Mucosa - Nose Respiratory Panel (PCR) - Final 04/20/25 12:45 Mucosa - Nose SARS-CoV-2, Influenza & RSV (PCR) - Final Physical Exam Narrative GENERAL: cooperative HEENT: Atraumatic; normocephalic EYES; Anicteric, Normal Conjunctiva NECK; supple, normal thyroid, RESPIRATORY: Diminished to auscultation CARDIOVASCULAR: Regular S1 S2, GI: soft, normoactive bowel sounds, : No Renal angle tenderness; EXTREMITIES: No edema, no clubbing, MUSCULOSKELETAL: no muscle wasting NEURO: Awake; no lateralizing signs. SKIN: No Rash PSYCH; Flat affect Assessment & Plan Assessment/Plan (1) Hypoxia: (2) Acute exacerbation of chronic obstructive pulmonary disease (COPD): PLAN: Plan Patient is a 64-year-old male who presented to [facility] ED on 04/21/2025 with worsening shortness of breath and cough. 1. Acute hypoxia secondary to acute exacerbation of COPD ?Admitted to a monitored bed managed with bronchodilator treatment systemic steroid and antibiotics. Patient oxygen saturation on admission was 86% on roomair. Patient had previously been discharged home with home oxygen however due to high cost ([facility] not, with patient continuous use of [facility]) patient refused oxygen on discharge. Case management subsequently consulted ? Plan was for patient to be discharged home today however he declined dischargestating he did not feel ready 2. Hypertension ? Blood pressure controlled, home medications continued with dose adjustment as needed 3. Tobacco dependence ? Counseled on cessation, offered nicotine patch for tobacco cravings 4. Seasonal allergies ? Continue Benadryl at night as needed. 5. DVT prophylaxis: Lovenox Time spent in the patient's overall evaluation,decision-making process, review of diagnostic data, adjustment of management, discussion with other providers, nursing nursing and ancillary staff involved in patient's care documentation, 36 Minutes Charges/Coding Visit Charges Inpatient E&M: 36027 Subs Hosp L2 Reason for DC delay: Pt / family delay 04/22/25 1100 <Electronically signed by Luis Hernandez MD> Cosigner Signature (if applicable): CC: ~ Signed [facility] Work Phone: 1(523) [phone] Discharge summary [facility] Medical Records Department [address] [place] [address] Discharge Summary 04/22/25 0912 MR#: [id number] Acct: [id number] Name: MELCHOR LYLE Rep #:[id number] : 1960 64 From: Luis Hernandez MD PCP: [facility] Status[facility] Prov[facility] Date of Admission: 04/20/25 Date of Discharge: 04/22/25 Primary Care Physician: [facility] Reason For Visit: HYPXIA AND COPD EXACERBATION Diagnosis Discharge Diagnosis (1) Hypoxia: Status: Acute Code(s): R09.02 - Hypoxemia (2) Acute exacerbation of chronic obstructive pulmonary disease (COPD): Status: Chronic Code(s): J44.1 - Chronic obstructive pulmonary disease with (acute) exacerbation Medications at Discharge Home Medications diphenhydramine HCl 25 mg tablet (Allergy) 50 mg PO BID PRN ALLERGIES 05/11/23 losartan 50 mg tablet (Cozaar) 50 mg PO DAILY BLOOD PRESSURE 05/11/23 albuterol sulfate 90 mcg/actuation breath activated powder inhaler 2 inh inhalation Q4H PRN SHORTNESS OF BREATH #1 ea 05/13/23 amlodipine 5 mg tablet 5 mg PO DAILY BLOOD PRESSURE 05/27/24 azithromycin 250 mg tablet 500 mg (2 x 250 mg) PO Q24 5 days #10 tabs 04/22/25 guaifenesin 1,200 mg tablet, extended release 12 hr (Mucus Relief ER) 1,200 mg PO BID #20 tabs 04/22/25 prednisone 20 mg tablet 20 mg PO BID #20 tabs 04/22/25 Hospital Course Summary of Care Provided Minutes Spent on Discharge: 35 Hospital Course: Patient is a 64-year-old male who presented to [facility] ED on 04/21/2025 with worsening shortness of breath and cough. 1. Acute hypoxia secondary to acute exacerbation of COPD ?Admitted to a monitored bed managed with bronchodilator treatment systemic steroid and antibiotics. Patient oxygen saturation on admission was 86% on roomair. Patient had previously been discharged home with home oxygen however due to high cost ([facility], with patient continuous use of [facility]) patient refused oxygen on discharge. Case management subsequently consulted ? Patient was assessed for home oxygen which he qualified he however declined swati discharged with oxygen 2. Hypertension ? Blood pressure controlled, home medications continued with dose adjustment as needed 3. Tobacco dependence ? Counseled on cessation, offered nicotine patch for tobacco cravings 4. Seasonal allergies ? Continue Benadryl at night as needed. 5. DVT prophylaxis: Lovenox Physical Exam Narrative GENERAL: cooperative HEENT: Atraumatic; normocephalic EYES; Anicteric, Normal Conjunctiva NECK; supple, normal thyroid, RESPIRATORY: Diminished to auscultation CARDIOVASCULAR: Regular S1 S2, GI: soft, normoactive bowel sounds, : No Renal angle tenderness; EXTREMITIES: No edema, no clubbing, MUSCULOSKELETAL: no muscle wasting NEURO: Awake; no lateralizing signs. SKIN: No Rash PSYCH; Flat affect Weight / BMI Weight Weight: 89.5 kg Body Mass Index (BMI) 32.3 ABG / Lab / Microbiology Data 04/21/25 05:30 04/21/25 05:30 Microbiology: Microbiology 04/20/25 18:50 Sputum, Expectorated/Coughed Gram Stain - Final 04/20/25 16:27 Mucosa - Nose Respiratory Panel (PCR) - Final 04/20/25 12:45 Mucosa - Nose SARS-CoV-2, Influenza & RSV (PCR) - Final D/C Instructions DC O2, CPAP, BIPAP Needs Home O2 Discharge instructions: Yes Type of respiratory needs?: Oxygen Oxygen frequency: With Ambulation Oxygen liters per minute during Ambulation: 3 DC home with Oxygen: Yes Home O2 MD Review: I have reviewed the oxygen testing, and the patient qualifies for home oxygen equipment and portability. The patient is mobile in the home and the community. Patient declined home oxygen despite qualifying Meaningful Use Info Meaningful Use Meaningful Use Diagnoses (Choose all that apply): None applicable Discharge Plan Admission Admit Date/Time: 04/20/25 14:34 Attending Provider: Luis Hernandez Primary Care Provider: [facility] Consulting Providers: Madiha Razo; Chino Sandoval Discharge Orders/Prescriptions Prescriptions: New azithromycin 250 mg Tablet 500 mg PO Q24 5 Days Qty: 10 0RF guaifenesin [Mucus Relief ER] 1,200 mg Tablet Extended Release 12hr 1,200 mg PO BID Qty: 20 0RF prednisone 20 mg tablet 20 mg PO BID Qty: 20 0RF Continued diphenhydramine HCl [Allergy] 25 mg tablet 50 mg PO BID PRN losartan [Cozaar] 50 mg tablet 50 mg PO DAILY albuterol sulfate 90 mcg/actuation aerosol powdr breath activated 2 inh inhalation Q4H PRN (Reason: SHORTNESS OF BREATH ) Qty: 1 0RF amlodipine 5 mg Tablet 5 mg PO DAILY Referrals / Follow Up: [facility] [Primary Care Provider] - Disposition Disposition (needs filled in before D/C Order can be placed): Home, Self Care Charges/Coding Visit Charges Inpatient E&M: 19826 Disch Hosp >30min 04/22/25 1146 Cosigner Signature (if applicable): CC: Dr. Luis Hernandez MD; [facility]~ Signed [facility]08-05-2025 Consult note [facility] Medical Records Department [address] [place] [address] Counseling Note - Pharmacy 04/22/25 1104 MR#: [id number] Acct: [id number] Name: MELCHOR LYLE Rep #:[id number] : 1960 64 From: Lakeshia Hope PCP: [facility] Status:ADM IN Y Location: [facility] [id number]- 1 Pharmacy [place] Med Rec Counseling Pharmacy Service has performed discharge medication reconciliation and counseling for this patient. 1. AZITHROMYCIN 500MG PO DAILY X 5 DAYS 2. GUAIFENESIN 1200MG PO BID 3. PREDNISONE 20MG PO BID X 10 DAYS The patient's discharge medication list was reviewed for discrepancies and discrepancies were resolved. The patient was counseled on the following discharge medications and changes in medications for homegoing were reviewed. The Reason for Use, instructions for use, and potential side effects were reviewed for all new medications. The patient's questions regarding all of their medications were answered. The patient was able to verbally demonstrate an understanding of their dischargemedications. Medications at Discharge Home Medications diphenhydramine HCl 25 mg tablet (Allergy) 50 mg PO BID PRN ALLERGIES 05/11/23 losartan 50 mg tablet (Cozaar) 50 mg PO DAILY BLOOD PRESSURE 05/11/23 albuterol sulfate 90 mcg/actuation breath activated powder inhaler 2 inh inhalation Q4H PRN SHORTNESS OF BREATH #1 ea 05/13/23 amlodipine 5 mg tablet 5 mg PO DAILY BLOOD PRESSURE 05/27/24 azithromycin 250 mg tablet 500 mg (2 x 250 mg) PO Q24 5 days #10 tabs 04/22/25 guaifenesin 1,200 mg tablet, extended release 12 hr (Mucus Relief ER) 1,200 mg PO BID #20 tabs 04/22/25 prednisone 20 mg tablet 20 mg PO BID #20 tabs 04/22/25 04/22/25 1105 Date _ Lakeshia Mccain Signature (if applicable): Date CC: ~ Signed [facility]08-05-2025 Progress note [facility] Medical Records Department [address] [place] [address] Progress Note - Hospitalist 04/22/25 1058 MR#: [id number] Acct: [id number] Name: MELCHOR LYLE Rep #:[id number] : 1960 64 From: Luis Hernandez MD [facility]: [facility] Status:ADM IN Location: [place] [address]- 1 Reason for Visit Chief Complaint: Increasing SOB Subjective Subjective Patient is a 64-year-old male who presented to [facility] ED on 04/21/2025 with worsening shortness of breath and cough. Objective Data Objective Data Vital Signs: Vital Signs Temp Pulse Resp BP Pulse Ox O2 Del Method O2 Flow Rate 97.7 F L 69 16 134/70 H 99 Nasal Cannula 3 04/22/25 09:13 04/22/25 09:13 04/22/25 09:13 04/22/25 09:13 04/22/25 09:13 04/22/25 09:13 04/22/25 09:13 Oxygen Flow Rate (L/min) 3 Oxygen Delivery Method Nasal Cannula Weight: 89.5 kg Body Mass Index (BMI) 32.3 Intake & Output: Intake and Output for Last 24 Hours 04/20/25 04/21/25 04/22/25 23:59 23:59 23:59 Intake Total 600 / 600 400 / 400 Balance 600 / 600 400 / 400 Lab / Micro Data 04/21/25 05:30 04/21/25 05:30 Micro: Microbiology 04/20/25 18:50 Sputum, Expectorated/Coughed Gram Stain - Final 04/20/25 16:27 Mucosa - Nose Respiratory Panel (PCR) - Final 04/20/25 12:45 Mucosa - Nose SARS-CoV-2, Influenza & RSV (PCR) - Final Physical Exam Narrative GENERAL: cooperative HEENT: Atraumatic; normocephalic EYES; Anicteric, Normal Conjunctiva NECK; supple, normal thyroid, RESPIRATORY: Diminished to auscultation CARDIOVASCULAR: Regular S1 S2, GI: soft, normoactive bowel sounds, : No Renal angle tenderness; EXTREMITIES: No edema, no clubbing, MUSCULOSKELETAL: no muscle wasting NEURO: Awake; no lateralizing signs. SKIN: No Rash PSYCH; Flat affect Assessment & Plan Assessment/Plan (1) Hypoxia: (2) Acute exacerbation of chronic obstructive pulmonary disease (COPD): PLAN: Plan Patient is a 64-year-old male who presented to [facility] ED on 04/21/2025 with worsening shortness of breath and cough. 1. Acute hypoxia secondary to acute exacerbation of COPD ?Admitted to a monitored bed managed with bronchodilator treatment systemic steroid and antibiotics. Patient oxygen saturation on admission was 86% on roomair. Patient had previously been discharged home with home oxygen however due to [facility] cost ([facility], with [facility] continuous use of [facility]) patient refused oxygen on discharge. Case management subsequently consulted ? Plan was for patient to be discharged home today however he declined dischargestating he did not feel ready 2. Hypertension ? Blood pressure controlled, home medications continued with dose adjustment as needed 3. Tobacco dependence ? Counseled on cessation, offered nicotine patch for tobacco cravings 4. Seasonal allergies ? Continue Benadryl at night as needed. 5. DVT prophylaxis: Lovenox Time spent in the patient's overall evaluation,decision-making process, review of diagnostic data, adjustment of management, discussion with other providers, nursing nursing and ancillary staff involved in patient's care documentation, 36 Minutes Charges/Coding Visit Charges Inpatient E&M: 59085 Subs Hosp L2 Reason for DC delay: Pt / family delay 04/22/25 1100 Cosigner Signature (if applicable): CC: ~ Signed [facility]08-05-2025 [facility] Medical Records Department [address] [place] [address] Discharge Summary 04/22/25911 MR#: [id number] Acct: [id number] Name: MELCHOR LYLE Rep #: [id number] : 1960 64 From: Luis Hernandez MD [facility] Status:ADM IN Location: [facility] [id number] Providers Date of Admission: 04/20/25 Date of Discharge: 04/22/25 Primary Care Physician: [facility] Reason For Visit: HYPXIA AND COPD EXACERBATION Diagnosis Discharge Diagnosis (1) Hypoxia: Status: Acute Code(s): R09.02 - Hypoxemia (2) Acute exacerbation of chronic obstructive pulmonary disease (COPD): Status: Chronic Code(s): J44.1 - Chronic obstructive pulmonary disease with (acute) exacerbation Medications at Discharge Home Medications diphenhydramine HCl 25 mg tablet (Allergy) 50 mg PO BID PRN ALLERGIES 05/11/23 losartan 50 mg tablet (Cozaar) 50 mg PO DAILY BLOOD PRESSURE 05/11/23 albuterol sulfate 90 mcg/actuation breath activated powder inhaler 2 inh inhalation Q4H PRN SHORTNESS OF BREATH #1 ea 05/13/23 amlodipine 5 mg tablet 5 mg PO DAILY BLOOD PRESSURE 05/27/24 azithromycin 250 mg tablet 500 mg (2 x 250 mg) PO Q24 5 days #10 tabs 04/22/25 guaifenesin 1,200 mg tablet, extended release 12 hr (Mucus Relief ER) 1,200 mg PO BID #20 tabs 04/22/25 prednisone 20 mg tablet 20 mg PO BID #20 tabs 04/22/25 Hospital Course Summary of Care Provided Minutes Spent on Discharge: 35 Hospital Course: Patient is a 64-year-old male who presented to [facility] ED on 04/21/2025 with worsening shortness of breath and cough. 1. Acute hypoxia secondary to acute exacerbation of COPD ???Admitted to a monitored bed managed with bronchodilator treatment systemic steroid and antibiotics. Patient oxygen saturation on admission was 86% on room air. Patient had previously been discharged home with home oxygen however due to [facility] cost ([facility] not, with patient continuous use of [facility]) patient refused oxygen on discharge. Case management subsequently consulted ??? Patient was assessed for home oxygen which he qualified he however declined to be discharged with oxygen 2. Hypertension ??? Blood pressure controlled, home medications continued with dose adjustment as needed 3. Tobacco dependence ??? Counseled on cessation, offered nicotine patch for tobacco cravings 4. Seasonal allergies ??? Continue Benadryl at night as needed. 5. DVT prophylaxis: Lovenox Physical Exam Narrative GENERAL: cooperative HEENT: Atraumatic; normocephalic EYES; Anicteric, Normal Conjunctiva NECK; supple, normal thyroid, RESPIRATORY: Diminished to auscultation CARDIOVASCULAR: Regular S1 S2, GI: soft, normoactive bowel sounds, : No Renal angle tenderness; EXTREMITIES: No edema, no clubbing, MUSCULOSKELETAL: no muscle wasting NEURO: Awake; no lateralizing signs. SKIN: No Rash PSYCH; Flat affect Weight / BMI Weight Weight: 89.5 kg Body Mass Index (BMI) 32.3 ABG / Lab / Microbiology Data 04/21/25 05:30 04/21/25 05:30 Microbiology: Microbiology 04/20/25 18:50 Sputum, Expectorated/Coughed Gram Stain - Final 04/20/25 16:27 Mucosa - Nose Respiratory Panel (PCR) - Final 04/20/25 12:45 Mucosa - Nose SARS-CoV-2, Influenza RSV (PCR) - Final D/C Instructions DC O2, CPAP, BIPAP Needs Home O2 Discharge instructions: Yes Type of respiratory needs?: Oxygen Oxygen frequency: With Ambulation Oxygen liters per minute during Ambulation: 3 DC home with Oxygen: Yes Home O2 MD Review: I have reviewed the oxygen testing, and the patient qualifies for home oxygen equipment and portability. The patient is mobile in the home and the community. Patient declined home oxygen despite qualifying Meaningful Use Info Meaningful Use Meaningful Use Diagnoses (Choose all that apply): None applicable Discharge Plan Admission Admit Date/Time: 04/20/25 14:34 Attending Provider: Luis Hernandez Primary Care Provider: [facility] Consulting Providers: Madiha Razo; Chino Sandoval Discharge Orders/Prescriptions Prescriptions: New azithromycin 250 mg Tablet 500 mg PO Q24 5 Days Qty: 10 0RF guaifenesin [Mucus Relief ER] 1,200 mg Tablet Extended Release 12hr 1,200 mg PO BID Qty: 20 0RF prednisone 20 mg tablet 20 mg PO BID Qty: 20 0RF Continued diphenhydramine HCl [Allergy] 25 mg tablet 50 mg PO BID PRN losartan [Cozaar] 50 mg tablet 50 mg PO DAILY albuterol sulfate 90 mcg/actuation aerosol powdr breath activated 2 inh inhalation Q4H PRN (Reason: SHORTNESS OF BREATH ) Qty: 1 0RF amlodipine 5 mg Tablet 5 mg PO DAILY Referrals [facility] - Disposition Disposition (needs filled in before D/C Order can be placed): Home, Self Care Charges/Coding Visit Charges Inpatient E M: 52449 Disch Hosp >30min 04/22/ (more content not included)...[facility]08-04-2025 Progress note Author Chino Sandoval [facility] Note Date/Time April 21, 2025 2:5 6pm [facility] Medical Records Department [address] [place] [address] Progress Note - Hospitalist 04/21/25 1054 MR#: [id number] Acct: [id number] Name: MELCHOR LYLE Kathrine Rep #:[id number] : 1960 64 From: Cihno castano DO [facility]CP: [facility] Status:ADM IN Location: [place] [address] Reason for Visit Chief Complaint: Increasing SOB Subjective Subjective Saw patient at bedside this morning. Patient was sitting back comfortably in bed, conversing normally and in no acute distress. He was breathing comfortablyon 3 L nasal cannula at rest. He stated that he felt moderately improved today compared to yesterday. Noted that with prior COPD exacerbations it has taken 3 to 4 days in the hospital for him to get back close to his baseline. No other new concerns this morning. Objective Data Objective Data Vital Signs: Vital Signs Temp Pulse Resp BP Pulse Ox O2 Del Method O2 Flow Rate 97.3 F L 93 18 140/80 H 94 Nasal Cannula 3 04/21/25 09:23 04/21/25 09:23 04/21/25 09:23 04/21/25 09:23 04/21/25 09:23 04/21/25 09:23 04/21/25 09:23 Oxygen Flow Rate (L/min) 3 Oxygen Delivery Method Nasal Cannula Weight: 85.7 kg Body Mass Index (BMI) 30.9 Lab / Micro Data 04/21/25 05:30 04/21/25 05:30 Labs: Laboratory Results - last 24 hr 04/20/25 12:25: WBC 13.6 H, RBC 4.93, Hgb 15.9, Hct 46.4, MCV 94.1 H, MCH 32.3 H, MCHC 34.3, RDW Std Deviation 44.8 H, RDW Coeff of Monica 13.1, Plt Count 334, MPV9.3, Immature Gran % (Auto) 0.400, Neut % (Auto) 80.1 H, Lymph % (Auto) 9.1 L, Rutherford % (Auto) 7.4, Eos % (Auto) 2.3, Baso % (Auto) 0.7, Absolute Neuts (auto) 10.9 H, Absolute Lymphs (auto) 1.24, Nucleated RBC % 0, Sodium 133, Potassium 4.4, Chloride 95 L, Carbon Dioxide 22.7, Anion Gap 15, BUN 15, Creatinine 1.01, Estim Creat Clear Calc 74.63, Est GFR (MDRD) Non-Af 82, BUN/Creatinine Ratio 15.2, Glucose 116 H, Calcium 9.3, Troponin T High Sens < 6 04/20/25 14:40: Troponin T Hi Sens 2 Hr 7 04/20/25 17:30: Troponin T High Sens < 6 04/21/25 05:30: WBC 14.3 H, RBC 4.57 L, Hgb 14.7, Hct 43.5, MCV 95.2 H, MCH 32.2H, MCHC 33.8, RDW Std Deviation 45.0 H, RDW Coeff of Monica 13.0, Plt Count 373, MPV 9.7, Immature Gran % (Auto) 0.600, Neut % (Auto) 90.8 H, Lymph % (Auto) 6.4 L, Rutherford % (Auto) 2.0, Eos % (Auto) 0.1, Baso % (Auto) 0.1, Absolute Neuts (auto)13.0 H, Absolute Lymphs (auto) 0.91, Nucleated RBC % 0, Sodium 133, Potassium 4.2, Chloride 97 L, Carbon Dioxide 21.4, Anion Gap 15, BUN 25 H, Creatinine 1.02, Estim Creat Clear Calc 71.72, Est GFR (MDRD) Non-Af 81, BUN/Creatinine Ratio 24.6 H, Glucose 174 H, Calcium 9.1 Micro: Microbiology 04/20/25 18:50 Sputum, Expectorated/Coughed Gram Stain - Final 04/20/25 16:27 Mucosa - Nose Respiratory Panel (PCR) - Final 04/20/25 12:45 Mucosa - Nose SARS-CoV-2, Influenza & RSV (PCR) - Final ABG Data ABG results: ABG 04/20/25 12:54 Specimen Type NIRMAL Sample Site Not entered VBG pH 7.40 VBG pO2 80 H VBG HCO3 29 H VBG Total CO2 30 VBG O2 Sat (Calc) 96 H VBG Base Excess 4 H POC Mix VBG pCO2 Pt Tmp 46.3 O2 Delivery Device Not entered Radiography Diagnostic Testing: Radiology Impression Chest X-Ray 04/20/25 12:14 IMPRESSION: No Acute Findings. Reading Location: [facility] Physical Exam Const alert, oriented x3 and no apparent distress Constitutional Narrative: Elderly male, class I obesity, mildly fatigued appearing and somewhat unkempt appearing, otherwise sitting back comfortably in bed, conversing normally, in noacute distress. General Appearance: cooperative and comfortable HEENT normocephalic, head/scalp atraumatic, hearing grossly normal bilaterally, nasal mucous membranes and turbinates normal and moist oral mucous membranes Eyes PERRL, EOMs intact bilaterally and conjunctivae normal Neck full ROM Chest inspection of chest normal Resp normal respiratory effort and no use of accessory muscles Resp Narrative: Breathing comfortably on 3 L nasal cannula at rest. Diminished breath sounds bilaterally throughout but with fairly good air movement and no wheezing noted. Improving. Cardio regular rate, regular rhythm, no murmurs and peripheral pulses 2+ throughout GI normal to inspection, nondistended, normoactive bowel sounds, soft to palpation,non-tender and non-distended Back/Spine normal ROM Extremity normal to inspection, full ROM and no pedal edema Skin no rashes or lesions noted Psych mental status grossly normal Assessment & Plan Assessment/Plan (1) Hypoxia: (2) Acute exacerbation of chronic obstructive pulmonary disease (COPD): PLAN: Plan Patient is a 64-year-old male who presented to [facility] ED on 04/21/2025 with worsening shortness of breath and cough. 1. Acute hypoxia secondary to acute exacerbation of COPD ? Not on home oxygen. Was 86% on room air on admit and was in respiratory distress with increased work of breathing. Chest x-ray unremarkable. Respiratory PCR panel negative. Sputum culture pending. Patient with good improvement on IV steroids, scheduled DuoNebs and IV azithromycin. Continue to wean supplemental oxygen as able. Notably has been hospitalized here twice in the past few years for COPD exacerbations. [facility] with the [facility]. Oxygen saturations typically run in the low 90s at rest and drop to the mid to high 80swith exertion at home. Has previously been discharged with home oxygen but due to high cost ([facility] did not cover as he is a current smoker) he stopped wearing it,and he may refuse to wear it again on this discharge. Case management followingfor assistance. 2. Hypertension ? Mildly hypertensive on admit. Continue home amlodipine and losartan. 3. Seasonal allergies ? Continue Benadryl at night as needed. 4. Tobacco dependence ? Current smoker. Denied need for nicotine replacement therapy while inpatient. Strongly advised cessation on discharge. DVT prophylaxis: Lovenox CODE STATUS: DNR-CCA, okay to intubate Expected disposition: Home, 1 to 2 days Total clinical time spent by myself addressing the patient's medical issues, reviewing all the data, and collaborating with patient's care team: 35 minutes. Charges/Coding Visit Charges Inpatient E&M: 52569 Subs Hosp L2 04/21/25 1887 <Electronically signed by Chino Sandoval DO> Cosigner Signature (if applicable): CC: ~ Signed [facility] Work Phone: 1(248) 632-825908-04-2025 Progress note [facility] Medical Records Department [address] [place] [address] Progress Note - Hospitalist 04/21/25 1054 MR#: [id number] Acct: [id number] Name: MELCHOR LYLE Rep #:[id number] : 1960 64 From: Chino castano DO PCP: [facility] Status:ADM IN Location: [place] [address] Reason for Visit Chief Complaint: Increasing SOB Subjective Subjective Saw patient at bedside this morning. Patient was sitting back comfortably in bed, conversing normally and in no acute distress. He was breathing comfortablyon 3 L nasal cannula at rest. He stated that he felt moderately improved today compared to yesterday. Noted that with prior COPD exacerbations i t has taken 3 to 4 days in the hospital for him to get back close to his baseline. No other new concerns this morning. Objective Data Objective Data Vital Signs: Vital Signs Temp Pulse Resp BP Pulse Ox O2 Del Method O2 Flow Rate 97.3 F L 93 18 140/80 H 94 Nasal Cannula 3 04/21/25 09:23 04/21/25 09:23 04/21/25 09:23 04/21/25 09:23 04/21/25 09:23 04/21/25 09:23 04/21/25 09:23 Oxygen Flow Rate (L/min) 3 Oxygen Delivery Method Nasal Cannula Weight: 85.7 kg Body Mass Index (BMI) 30.9 Lab / Micro Data 04/21/25 05:30 04/21/25 05:30 Labs: Laboratory Results - last 24 hr 04/20/25 12:25: WBC 13.6 H, RBC 4.93, Hgb 15.9, Hct 46.4, MCV 94.1 H, MCH 32.3 H, MCHC 34.3, RDW Std Deviation 44.8 H, RDW Coeff of Monica 13.1, Plt Count 334, MPV9.3, Immature Gran % (Auto) 0.400, Neut% (Auto) 80.1 H, Lymph % (Auto) 9.1 L, Rutherford % (Auto) 7.4, Eos % (Auto) 2.3, Baso % (Auto) 0.7, Absolute Neuts (auto) 10.9 H, Absolute Lymphs (auto) 1.24, Nucleated RBC % 0, Sodium 133, Potassium 4.4,Chloride 95 L, Carbon Dioxide 22.7, Anion Gap 15, BUN 15, Creatinine 1.01, Estim Creat Clear Calc 74.63, Est GFR (MDRD) Non-Af 82, BUN/Creatinine Ratio 15.2, Glucose 116 H, Calcium 9.3, Troponin T High Sens < 6 04/20/25 14:40: Troponin T Hi Sens 2 Hr 7 04/20/25 17:30: Troponin T High Sens < 6 04/21/25 05:30: WBC 14.3 H, RBC 4.57 L, Hgb 14.7, Hct 43.5, MCV 95.2 H, MCH 32.2H, MCHC 33.8, RDW Std Deviation 45.0 H, RDW Coeff of Monica 13.0, Plt Count 373, MPV 9.7, Immature Gran % (Auto) 0.600, Neut % (Auto) 90.8 H, Lymph % (Auto) 6.4 L, Rutherford % (Auto) 2.0, Eos % (Auto) 0.1, Baso % (Auto) 0.1, Absolute Neuts (auto)13.0 H, Absolute Lymphs (auto) 0.91, Nucleated RBC % 0, Sodium 133, Potassium 4.2, Chloride 97 L, Carbon Dioxide 21.4, Anion Gap 15, BUN 25 H, Creatinine 1.02, Estim Creat Clear Calc 71.72, Est GFR (MDRD) Non-Af 81, BUN/Creatinine Ratio 24.6 H, Glucose 174 H, Calcium 9.1 Micro: Microbiology 04/20/25 18:50 Sputum, Expectorated/Coughed Gram Stain - Final 04/20/25 16:27 Mucosa - Nose Respiratory Panel (PCR) - Final 04/20/25 12:45 Mucosa - Nose SARS-CoV-2, Influenza & RSV (PCR) - Final ABG Data ABG results: ABG 04/20/25 12:54 Specimen Type NIRMAL Sample Site Not entered VBG pH 7.40 VBG pO2 80 H VBG HCO3 29 H VBG Total CO2 30 VBG O2 Sat (Calc) 96 H VBG Base Excess 4 H POC Mix VBG pCO2 Pt Tmp 46.3 O2 Delivery Device Not entered Radiography Diagnostic Testing: Radiology Impression Chest X-Ray 04/20/25 12:14 IMPRESSION: No Acute Findings. Reading Location: [id number] Physical Exam Const alert, oriented x3 and no apparent distress Constitutional Narrative: Elderly male, class I obesity, mildly fatigued appearing and somewhat unkempt appearing, otherwise sitting back comfortably in bed, conversing normally, in noacute distress. General Appearance: cooperative and comfortable HEENT normocephalic, head/scalp atraumatic, hearing grossly normal bilaterally, nasal mucous membranes and turbinates normal and moist oral mucous membranes Eyes PERRL, EOMs intact bilaterally and conjunctivae normal Neck full ROM Chest inspection of chest normal Resp normal respiratory effort and no use of accessory muscles Resp Narrative: Breathing comfortably on 3 L nasal cannula at rest. Diminished breath sounds bilaterally throughoutbut with fairly good air movement and no wheezing noted. Improving. Cardio regular rate, regular rhythm, no murmurs and peripheral pulses 2+ throughout GI normal to inspection, nondistended, normoactive bowel sounds, soft to palpation,non-tender and non-distended Back/Spine normal ROM Extremity normal to inspection, full ROM and no pedal edema Skin no rashes or lesions noted Psych mental status grossly normal Assessment & Plan Assessment/Plan (1) Hypoxia: (2) Acute exacerbation of chronic obstructive pulmonary disease (COPD): PLAN: Plan Patient is a 64-year-old male who presented to [facility] ED on 04/21/2025 with worsening shortness of breath and cough. 1. Acute hypoxia secondary to acute exacerbation of COPD ? Not on home oxygen. Was 86% on room air on admit and was in respiratory distress with increased work of breathing. Chest x-ray unremarkable. Respiratory PCR panel negative. Sputum culture pending. Patient with good improvement on IV steroids, scheduled DuoNebs and IV azithromycin. Continue to wean supplemental oxygen as able. Notably has been hospitalized here twice in the past few years for COPD exacerbations. [facility] with [facility]. Oxygen saturations typically run in the low 90s at rest and drop to the mid to high 80swith exertion at home. Has previously been discharged with home oxygen butdue to high cost ([facility] did not cover as he is a current smoker) he stopped wearing it,and he may refuse to wear it again on this discharge. Case management followingfor assistance. 2. Hypertension ? Mildly hypertensive on admit. Continue home amlodipine and losartan. 3. Seasonal allergies ? Continue Benadryl at night as needed. 4. Tobacco dependence ? Current smoker. Denied need for nicotine replacement therapy while inpatient. Strongly advised cessation on discharge. DVT prophylaxis: Lovenox CODE STATUS: DNR-CCA, okay to intubate Expected disposition: Home, 1 to 2 days Total clinical time spent by myself addressing the patient's medical issues, reviewing all the data, and collaborating with patient's care team: 35 minutes. Charges/Coding Visit Charges Inpatient E&M: 34651 Subs Hosp L2 04/21/25 7284 Cosigner Signature (if applicable): CC: ~ Signed [facility]08-03-2025 Discharge summary Author Minal Castro [facility] Note Date/Time April 20, 2025 9:4 0pm [facility] Medical Records Department [address] [place] [address] Emergency Department Summary 04/20/25 MR#: [id number] Acct: [id number] Name: MELCHOR LYLE Rep #:[id number] : 1960 64 From: Minal JUÁREZ PCP: [facility] Status:ADM IN Location: [place] [id number] <JEY Sheppard - Last Filed: 04/20/25 13:50> History of Present Illness Chief Complaint: Shortness of Breath Narrative Narrative: 64-year-old male with PMH of HTN, COPD, tobacco use presents with 1 week of increasing productive cough, wheezing, and shortness of breath. No chest pain he had a coughing fit today and remembers his sister asking him if he is okay because he thinks he blacked out for seconds. EMS noted he was 84% on room air and placed him on nasal cannula. He does not wear home oxygen. He smokes a pipe. He denies history of COPD but prior record shows he has COPD. He has an albuterol inhaler. He denies recent fever, chills, or sick contacts. He stateshe was admitted to the hospital in the past for similar symptoms and required oxygen. At 1 point he was discharged with O2 but then his [facility] insurance did not approve it for further use. [facility] <JYE Sheppard - Last Filed: 04/20/25 13:50> [facility] Medical History (Updated 04/20/25 @ 16:03 by Arielle Diehl) Kidney stones Smoker Hypertension Home Medications ?Medication ?Instructions ?Recorded ?Last Taken ?Type diphenhydramine HCl 25 mg tablet 50 mg PO BID PRN THUY RGIES 05/11/23 04/19/25 History (Allergy) losartan 50 mg tablet (Cozaar) 50 mg PO DAILY BLOOD ID ESSURE 05/11/23 04/19/25 History albuterol sulfate 90 mcg/actuation 2 inh inhalation Q4 H PRN SHORTNESS 05/13/23 04/19/25 Rx breath activated powder inhaler OF BREATH #1 ea amlodipine 5 mg tablet 5 mg PO DAILY BLOOD PRESSURE 05/27/24 04/19/25 History Allergy/AdvReac Type Severity Reaction Status Date / Time poison dennis extract Allergy Intermediate Rash Verified 05/27/24 07:20 Social History number of children: 0 Smoking Status: Current every day smoker tobacco type: pipe ROS <JEY Sheppard - Last Filed: 04/20/25 13:50> ROS ED ROS Narrative Constitutional: Negative for fever, chills, malaise. CVS: Negative for palpitations, chest pain. Respiratory: Positive for shortness of breath, cough. GI: Negative for abdominal pain, nausea, vomiting. EXAM <JEY Sheppard - Last Filed: 04/20/25 13:50> Physical Exam Narrative Exam Narrative: CONST: Patient sitting in bed in mild respiratory distress. EYES: Normal inspection. NECK: Normal inspection. RESP: Mild respiratory distress, tachypneic around 26 breaths/minute, wheezing throughout with minimal air movement. CVS: Regular rate and rhythm, no murmur, no gallop. SKIN: Color normal, no rash, warm, dry, intact. EXTREMITIES: Both feet have dried blood from him picking his skin, no edema. NEURO: Alert and answering questions appropriately. PSYCH: Normal affect. Const Vital Signs: 04/20/25 12:01 04/20/25 12:24 04/20/25 12:37 Temperature 97.4 F L Temperature Source Temporal Pulse Rate 118 H 107 H Respiratory Rate 26 H 20 H Respiratory Effort Short of Breath Labored Accessory Muscle Use Respiratory Depth Deep Respiratory Pattern Tachypnea Blood Pressure 156/92 H Blood Pressure Mean 113 Pulse Ox 92 Oxygen Delivery Method Room Air Nasal Cannula Oxygen Flow Rate (L/min) 2 04/20/25 13:04 04/20/25 14:00 04/20/25 14:05 Temperature 97.8 F 98 F 98 F Temperature Source Oral Oral Pulse Rate 82 92 94 Respiratory Rate 18 24 H 24 H Respiratory Effort Respiratory Depth Respiratory Pattern Blood Pressure 147/92 H 159/87 H 149/89 H Blood Pressure Mean 110 111 109 Pulse Ox 96 96 96 Oxygen Delivery Method Nasal Cannula Nasal Cannula Oxygen Flow Rate (L/min) 2 2 <Dr. Oneal Ng DO - Last Filed: 04/20/25 21:40> Physical Exam Const Vital Signs: 04/20/25 12:01 04/20/25 12:24 04/20/25 12:37 Temperature 97.4 F L Temperature Source Temporal Pulse Rate 118 H 107 H Respiratory Rate 26 H 20 H Respiratory Effort Short of Breath Labored Accessory Muscle Use Respiratory Depth Deep Respiratory Pattern Tachypnea Blood Pressure 156/92 H Blood Pressure Mean 113 Pulse Ox 92 Oxygen Delivery Method Room Air Nasal Cannula Oxygen Flow Rate (L/min) 2 04/20/25 13:04 04/20/25 14:00 04/20/25 14:05 Temperature 97.8 F 98 F 98 F Temperature Source Oral Oral Pulse Rate 82 92 94 Respiratory Rate 18 24 H 24 H Respiratory Effort Respiratory Depth Respiratory Pattern Blood Pressure 147/92 H 159/87 H 149/89 H Blood Pressure Mean 110 111 109 Pulse Ox 96 96 96 Oxygen Delivery Method Nasal Cannula Nasal Cannula Oxygen Flow Rate (L/min) 2 2 MDM <JEY Sheppard - Last Filed: 04/20/25 13:50> MDM MDM Narrative Medical decision making narrative: Differential includes but not limited to COPD exacerbation, pneumonia, ACS 64-year-old male with COPD presents with 1 week of increasing productive cough, wheezing, and dyspnea. He was 84% on RA and was placed on 4 L but then weaned down to 2 L. On initial exam he still in mild respiratory distress and not moving air well. BP 156/92, HR 118, RR 26, 94% on 4 L, afebrile. I ordered IV Solu-Medrol and DuoNebs. WBC is 13.6, normal hemoglobin and platelets. BMP is unremarkable. EKG is nonischemic and troponin is less than 6. I am not concerned for PE as his clinical picture is consistent with a COPD exacerbation. Blood gas shows normal pH and CO2 of 46.3 and he has slightly improved after breathing treatments and I do not think he currently requires BiPAP. His viral swab is negative for COVID/flu/RSV. I discussed the case with the hospitalist for admission for COPD and hypoxia. History & Record Review Discussion w/independent historian: EMS personnel and Patient Additional record(s) reviewed:: Prior inpatient record and Prior labs Lab Data Attestation: I reviewed the patient's lab results. Labs: Laboratory Results - last 24 hr 04/20/25 12:25 WBC 13.6 H RBC 4.93 Hgb 15.9 Hct 46.4 MCV 94.1 H MCH 32.3 H MCHC 34.3 RDW Std Deviation 44.8 H RDW Coeff of Monica 13.1 Plt Count 334 MPV 9.3 Immature Gran % (Auto) 0.400 Neut % (Auto) 80.1 H Lymph % (Auto) 9.1 L Rutherford % (Auto) 7.4 Eos % (Auto) 2.3 Baso % (Auto) 0.7 Absolute Neuts (auto) 10.9 H Absolute Lymphs (auto) 1.24 Nucleated RBC % 0 Sodium 133 Potassium 4.4 Chloride 95 L Carbon Dioxide 22.7 Anion Gap 15 BUN 15 Creatinine 1.01 Estim Creat Clear Calc 74.63 Est GFR (MDRD) Non-Af 82 BUN/Creatinine Ratio 15.2 Glucose 116 H Calcium 9.3 Troponin T High Sens < 6 ABG Data ABG results: ABG 04/20/25 12:54 Specimen Type NIRMAL Sample Site Not entered VBG pH 7.40 VBG pO2 80 H VBG HCO3 29 H VBG Total CO2 30 VBG O2 Sat (Calc) 96 H VBG Base Excess 4 H POC Mix VBG pCO2 Pt Tmp 46.3 O2 Delivery Device Not entered Radiography Diagnostic Testing: Clinical Impression(s) from Imaging Studies Chest X-Ray 04/20/25 12:14 IMPRESSION: No Acute Findings. Reading Location: [facility] ED attending interpretation of 1 view chest x-ray shows normal heart size, no acute infiltrate. EKG Initial EKG: Attestation: I personally reviewed and interpreted this EKG as follows: Interpretation: No Acute Injury Pattern and Sinus Tachycardia Comments: Sinus tachycardia at 104 bpm Normal intervals, no acute ischemic changes Prior EKG tracings: available for review Prior: Unchanged <Dr. Oneal Ng, DO - Last Filed: 04/20/25 21:40> MDM MDM Narrative Medical decision making narrative: Differential includes but not limited to COPD exacerbation, pneumonia, ACS 64-year-old male with COPD presents with 1 week of increasing productive cough, wheezing, and dyspnea. He was 84% on RA and was placed on 4 L but then weaned down to 2 L. On initial exam he still in mild respiratory distress and not moving air well. BP 156/92, HR 118, RR 26, 94% on 4 L, afebrile. I ordered IV Solu-Medrol and DuoNebs. WBC is 13.6, normal hemoglobin and platelets. BMP is unremarkable. EKG is nonischemic and troponin is less than 6. I am not concerned for PE as his clinical picture is consistent with a COPD exacerbation. Blood gas shows normal pH and CO2 of 46.3 and he has slightly improved after breathing treatments and I do not think he currently requires BiPAP. His viral swab is negative for COVID/flu/RSV. I discussed the case with the hospitalist for admission for COPD and hypoxia. Supervisory Physician Note Patient was seen and examined with the Advanced Practice Provider. Nursing notesand vital signs have been reviewed. Pertinent old records have been reviewed. I agree with the essential elements of the REUBEN's history, physical exam, assessment, and plan. The differential diagnosis and management options were discussed with the REUBEN. I participated in determining and agree with the management, procedures, final impression and disposition as documented. See changes noted by me. Please see addendum or separate note for any additional details. Gen: A&O x3 Head: Normocephalic, atraumatic Eyes: No sclera icterus, conjunctiva clear ENT: Moist mucous membranes Neck: Trachea midline, No JVD CV: Tachycardic, regular rhythm, no murmurs, no peripheral edema Resp: Decreased in the bases, diffuse expiratory wheezing with minimal airflow, tachypneic, on nasal cannula GI: Abd soft, non-distended, non-tender, no r/r/g Musc: Full ROM, no deformity Skin: Warm, dry Neuro: Alert, oriented, grossly intact, sensation intact Psych: Cooperative, appropriate mood and affect Impression: 1. COPD exacerbation 2. Acute hypoxia secondary to #1 Lab Data Labs: Laboratory Results - last 24 hr 04/20/25 12:25 WBC 13.6 H RBC 4.93 Hgb 15.9 Hct 46.4 MCV 94.1 H MCH 32.3 H MCHC 34.3 RDW Std Deviation 44.8 H RDW Coeff of Monica 13.1 Plt Count 334 MPV 9.3 Immature Gran % (Auto) 0.400 Neut % (Auto) 80.1 H Lymph % (Auto) 9.1 L Rutherford % (Auto) 7.4 Eos % (Auto) 2.3 Baso % (Auto) 0.7 Absolute Neuts (auto) 10.9 H Absolute Lymphs (auto) 1.24 Nucleated RBC % 0 Sodium 133 Potassium 4.4 Chloride 95 L Carbon Dioxide 22.7 Anion Gap 15 BUN 15 Creatinine 1.01 Estim Creat Clear Calc 74.63 Est GFR (MDRD) Non-Af 82 BUN/Creatinine Ratio 15.2 Glucose 116 H Calcium 9.3 Troponin T High Sens < 6 ABG Data ABG results: ABG 04/20/25 12:54 Specimen Type NIRMAL Sample Site Not entered VBG pH 7.40 VBG pO2 80 H VBG HCO3 29 H VBG Total CO2 30 VBG O2 Sat (Calc) 96 H VBG Base Excess 4 H POC Mix VBG pCO2 Pt Tmp 46.3 O2 Delivery Device Not entered Radiography Diagnostic Testing: Clinical Impression(s) from Imaging Studies Chest X-Ray 04/20/25 12:14 IMPRESSION: No Acute Findings. Reading Location: [id number] Discharge Plan Dx/Rx/DC Orders Clinical Impression: Acute exacerbation of chronic obstructive pulmonary disease (COPD), Hypoxia, Tobacco use Disposition Disposition: Acute Care Hospital [facility] Discharge Date/Time: 04/20/25 15:54 What to do if you have Problems For any increased pain, shortness of breath, bleeding, nausea or vomiting, chestpain, or any unexpected problems, contact your Primary Care Provider. Call [facility] ([phone]) or report to the closest Emergency Room. Call 911 if necessary. 04/20/25 1350 <Electronically signed by Minal JUÁREZ> Cosigner Signature (if applicable): 04/20/25 2140 <Electronically signed by Oneal Ng DO> CC: [facility] ~ Signed [facility] Work Phone: 1(665) 814-155808-03-2025 Discharge summary [facility] Medical Records Department [address] [place] [address] Emergency Department Summary 04/20/25 MR#: [id number] Acct: [id number] Name: MELCHOR LYLE Rep #:[id number] : 1960 64 From: Minal JUÁREZ PCP: [facility] Status:ADM IN Location: [place] [address] HPI History of Present Illness Chief Complaint: Shortness of Breath Narrative Narrative: 64-year-old male with PMH of HTN, COPD, tobacco use presents with 1 week of increasing productive cough, wheezing, and shortness of breath. No chest pain he had a coughing fit today and remembers hissister asking him if he is okay because he thinks he blacked out for seconds. EMS noted he was 84% on room air and placed him on nasal cannula. He does not wear home oxygen. He smokes a pipe. He denies history of COPD but prior record shows he has COPD. He has an albuterol inhaler. He denies recentfever, chills, or sick contacts. He stateshe was admitted to the hospital in the past for similar symptoms and required oxygen. At 1 point he was discharged with O2 but then [place] did not a pprove it for further use. [facility] Medical History (Updated 04/20/25 @ 16:03 by Arielle Diehl) Kidney stones Smoker Hypertension Home Medications ?Medication ?Instructions ?Recorded ?Last Taken ?Type diphenhydramine HCl 25 mg tablet 50 mg PO BID PRN THUY RGIES 05/11/23 04/19/25 History (Allergy) losartan 50 mg tablet (Cozaar) 50 mg PO DAILY BLOOD ID ESSURE 05/11/23 04/19/25 History albuterol sulfate 90 mcg/actuation 2 inh inhalation Q4 H PRN SHORTNESS 05/13/23 04/19/25 Rx breath activated powder inhaler OF BREATH #1 ea amlodipine 5 mg tablet 5 mg PO DAILY BLOOD PRESSURE 05/27/24 04/19/25 History Allergy/AdvReac Type Severity Reaction Status Date / Time poison dennis extract Allergy Intermediate Rash Verified 05/27/24 07:20 Social History number of children: 0 Smoking Status: Current every day smoker tobacco type: pipe ROS ROS ED ROS Narrative Constitutional: Negative for fever, chills, malaise. CVS: Negative for palpitations, chest pain. Respiratory: Positive for shortness of breath, cough. GI: Negative for abdominal pain, nausea, vomiting. EXAM Physical Exam Narrative Exam Narrative: CONST: Patient sitting in bed in mild respiratory distress. EYES: Normal inspection. NECK: Normal inspection. RESP: Mild respiratory distress, tachypneic around 26 breaths/minute, wheezing throughout with minimal air movement. CVS: Regular rate and rhythm, no murmur, no gallop. SKIN: Color normal, no rash, warm, dry, intact. EXTREMITIES: Both feet have dried blood from him picking his skin, no edema. NEURO: Alert and answering questions appropriately. PSYCH: Normal affect. Const Vital Signs: 04/20/25 12:01 04/20/25 12:24 04/20/25 12:37 Temperature 97.4 F L Temperature Source Temporal Pulse Rate 118 H 107 H Respiratory Rate 26 H 20 H Respiratory Effort Short of Breath Labored Accessory Muscle Use Respiratory Depth Deep Respiratory Pattern Tachypnea Blood Pressure 156/92 H Blood Pressure Mean 113 Pulse Ox 92 Oxygen Delivery Method Room Air Nasal Cannula Oxygen Flow Rate (L/min) 2 04/20/25 13:04 04/20/25 14:00 04/20/25 14:05 Temperature 97.8 F 98 F 98 F Temperature Source Oral Oral Pulse Rate 82 92 94 Respiratory Rate 18 24 H 24 H Respiratory Effort Respiratory Depth Respiratory Pattern Blood Pressure 147/92 H 159/87 H 149/89 H Blood Pressure Mean 110 111 109 Pulse Ox 96 96 96 Oxygen Delivery Method Nasal Cannula Nasal Cannula Oxygen Flow Rate (L/min) 2 2 Physical Exam Const Vital Signs: 04/20/25 12:01 04/20/25 12:24 04/20/25 12:37 Temperature 97.4 F L Temperature Source Temporal Pulse Rate 118 H 107 H Respiratory Rate 26 H 20 H Respiratory Effort Short of Breath Labored Accessory Muscle Use Respiratory Depth Deep Respiratory Pattern Tachypnea Blood Pressure 156/92 H Blood Pressure Mean 113 Pulse Ox 92 Oxygen Delivery Method Room Air Nasal Cannula Oxygen Flow Rate (L/min) 2 04/20/25 13:04 04/20/25 14:00 04/20/25 14:05 Temperature 97.8 F 98 F 98 F Temperature Source Oral Oral Pulse Rate 82 92 94 Respiratory Rate 18 24 H 24 H Respiratory Effort Respiratory Depth Respiratory Pattern Blood Pressure 147/92 H 159/87 H 149/89 H Blood Pressure Mean 110 111 109 Pulse Ox 96 96 96 Oxygen Delivery Method Nasal Cannula Nasal Cannula Oxygen Flow Rate (L/min) 2 2 MDM MDM MDM Narrative Medical decision making narrative: Differential includes but not limited to COPD exacerbation, pneumonia, ACS 64-year-old male with COPD presents with 1 week of increasing productive cough, wheezing, and dyspnea. He was 84% on RA and was placed on 4 L but then weaned down to 2 L. On initial exam he still in mild respiratory distress and not moving air well. BP 156/92, HR 118, RR 26, 94% on 4 L, afebrile. Iordered IV Solu-Medrol and DuoNebs. WBC is 13.6, normal hemoglobin and platelets. BMP is unremarkable. EKG is nonischemic and troponin is less than 6. I am not concerned for PE as his clinical picture is consistent with a COPD exacerbation. Blood gas shows normal pH and CO2 of 46.3 and he has slightly improved after breathing treatments and I do not think he currently requires BiPAP. His viral swab is negative for COVID/flu/RSV. I discussed the case with the hospitalist for admission for COPD and hypoxia. History & Record Review Discussion w/independent historian: EMS personnel and Patient Additional record(s) reviewed:: Prior inpatient record and Prior labs Lab Data Attestation: I reviewed the patient's lab results. Labs: Laboratory Results - last 24 hr 04/20/25 12:25 WBC 13.6 H RBC 4.93 Hgb 15.9 Hct 46.4 MCV 94.1 H MCH 32.3 H MCHC 34.3 RDW Std Deviation 44.8 H RDW Coeff of Monica 13.1 Plt Count 334 MPV 9.3 Immature Gran % (Auto) 0.400 Neut % (Auto) 80.1 H Lymph % (Auto) 9.1 L Rutherford % (Auto) 7.4 Eos % (Auto) 2.3 Baso % (Auto) 0.7 Absolute Neuts (auto) 10.9 H Absolute Lymphs (auto) 1.24 Nucleated RBC % 0 Sodium 133 Potassium 4.4 Chloride 95 L Carbon Dioxide 22.7 Anion Gap 15 BUN 15 Creatinine 1.01 Estim Creat Clear Calc 74.63 Est GFR (MDRD) Non-Af 82 BUN/Creatinine Ratio 15.2 Glucose 116 H Calcium 9.3 Troponin T High Sens < 6 ABG Data ABG results: ABG 04/20/25 12:54 Specimen Type NIRMAL Sample Site Not entered VBG pH 7.40 VBG pO2 80 H VBG HCO3 29 H VBG Total CO2 30 VBG O2 Sat (Calc) 96 H VBG Base Excess 4 H POC Mix VBG pCO2 Pt Tmp 46.3 O2 Delivery Device Not entered Radiography Diagnostic Testing: Clinical Impression(s) from Imaging Studies Chest X-Ray 04/20/25 12:14 IMPRESSION: No Acute Findings. Reading Location: [facility] ED attending interpretation of 1 view chest x-ray shows normal heart size, no acute infiltrate. EKG Initial EKG: Attestation: I personally reviewed and interpreted this EKG as follows: Interpretation: No Acute Injury Pattern and Sinus Tachycardia Comments: Sinus tachycardia at 104 bpm Normal intervals, no acute ischemic changes Prior EKG tracings: available for review Prior: Unchanged MDM MDM Narrative Medical decision making narrative: Differential includes but not limited to COPD exacerbation, pneumonia, ACS 64-year-old male with COPD presents with 1 week of increasing productive cough, wheezing, and dyspnea. He was 84% on RA and was placed on 4 L but then weaned down to 2 L. On initial exam he still in mild respiratory distress and not moving air well. BP 156/92, HR 118, RR 26, 94% on 4 L, afebrile. Iordered IV Solu-Medrol and DuoNebs. WBC is 13.6, normal hemoglobin and platelets. BMP is unremarkable. EKG is nonischemic and troponin is less than 6. I am not concerned for PE as his clinical picture is consistent with a COPD exacerbation. Blood gas shows normal pH and CO2 of 46.3 and he has slightly improved after breathing treatments and I do not think he currently requires BiPAP. His viral swab is negative for COVID/flu/RSV. I discussed the case with the hospitalist for admission for COPD and hypoxia. Supervisory Physician Note Patient was seen and examined with the Advanced Practice Provider. Nursing notesand vital signs have been reviewed. Pertinent old records have been reviewed. I agree with the essential elements of the REUBEN's history, physical exam, assessment, and plan. The differential diagnosis and management options were discussed with the REUBEN. I participated in determining and agree with the management, procedures, final impression and disposition as documented. See changes noted by me. Please see addendum or separate note for any additional details. Gen: A&O x3 Head: Normocephalic, atraumatic Eyes: No sclera icterus, conjunctiva clear ENT: Moist mucous membranes Neck: Trachea midline, No JVD CV: Tachycardic, regular rhythm, no murmurs, no peripheral edema Resp: Decreased in the bases, diffuse expiratory wheezing with minimal airflow, tachypneic, on nasal cannula GI: Abd soft, non-distended, non-tender, no r/r/g Musc: Full ROM, no deformity Skin: Warm, dry Neuro: Alert, oriented, grossly intact, sensation intact Psych: Cooperative, appropriate mood and affect Impression: 1. COPD exacerbation 2. Acute hypoxia secondary to #1 Lab Data Labs: Laboratory Results - last 24 hr 04/20/25 12:25 WBC 13.6 H RBC 4.93 Hgb 15.9 Hct 46.4 MCV 94.1 H MCH 32.3 H MCHC 34.3 RDW Std Deviation 44.8 H RDW Coeff of Monica 13.1 Plt Count 334 MPV 9.3 Immature Gran % (Auto) 0.400 Neut % (Auto) 80.1 H Lymph % (Auto) 9.1 L Rutherford % (Auto) 7.4 Eos % (Auto) 2.3 Baso % (Auto) 0.7 Absolute Neuts (auto) 10.9 H Absolute Lymphs (auto) 1.24 Nucleated RBC % 0 Sodium 133 Potassium 4.4 Chloride 95 L Carbon Dioxide 22.7 Anion Gap 15 BUN 15 Creatinine 1.01 Estim Creat Clear Calc 74.63 Est GFR (MDRD) Non-Af 82 BUN/Creatinine Ratio 15.2 Glucose 116 H Calcium 9.3 Troponin T High Sens < 6 ABG Data ABG results: ABG 04/20/25 12:54 Specimen Type NIRMAL Sample Site Not entered VBG pH 7.40 VBG pO2 80 H VBG HCO3 29 H VBG Total CO2 30 VBG O2 Sat (Calc) 96 H VBG Base Excess 4 H POC Mix VBG pCO2 Pt Tmp 46.3 O2 Delivery Device Not entered Radiography Diagnostic Testing: Clinical Impression(s) from Imaging Studies Chest X-Ray 04/20/25 12:14 IMPRESSION: No Acute Findings. Reading Location: [facility] Discharge Plan Dx/Rx/DC Orders Clinical Impression: Acute exacerbation of chronic obstructive pulmonary disease (COPD), Hypoxia, Tobacco use Disposition Disposition: [facility] Discharge Date/Time: 04/20/25 15:54 What to do if you have Problems For any increased pain, shortness of breath, bleeding, nausea or vomiting, chestpain, or any unexpected problems, contact your Primary Care Provider. Call [facility] ([phone]) or report tothe closest Emergency Room. Call 911 if necessary. 04/20/25 1350 Cosigner Signature (if applicable): 04/20/25 2140 CC: [facility] ~ Signed [facility]08-03-2025 History and physical note Author Madiha Razo [facility] Note Date/Time April 20, 2025 3:3 0pm [facility] Medical Records Department [address] [place] [address] H&P Exam - Hospitalist 04/20/25 1434 MR#: [id number] Acct: [id number] Name: MELCHOR LYLE Rep #:[id number] : 1960 64 From: Madiha Razo MD PCP: [facility] Status:ADM IN Location: [facility] [id number]- [id number] HPI - General General Date of Admission: 04/20/25 Date of Service: 04/20/25 Chief Complaint: Increasing SOB HPI Narrative MELCHOR LYLE, is a 64 M with a history of suspected COPD, tobacco use, hypertension and seasonal allergies who presented to [facility] ED 04/20/2025 due to increasing shortness of breath and cough. In the ED temp 97.4, heart rate initially 119 with a blood pressure 156/92, respiratory rate 26and patient was 86% for with squad and was placed on 2 L of nasal cannula in theED. VBG with a PCO2 of 46, bicarb of 29 and PO2 of 80, normal pH, slight increase in white blood cell count to 13.6, no significant abnormalities on BMP and troponin within normal limits. Chest x-ray negative. Patient with significant work of breathing and wheezing, he was given a neb and steroids withsome improvement however continued to have difficulty and was not stable for discharge. Hospitalist contacted for admission. Patient evaluated at bedside. He reports increasing shortness of breath for 1 week with cough with peoples sputum, no fevers or chest pain, no other acute complaints. Reports he feels a little bit better after breathing treatment and steroids but is still significantly struggling. [facility] Medical History Hypertension Home Medications ?Medication ?Instructions ?Recorded ?Last Taken ?Type diphenhydramine HCl 25 mg tablet 50 mg PO QHS ALLERGIE S 05/11/23 04/19/25 History (Allergy) losartan 50 mg tablet (Cozaar) 50 mg PO QHS BLOOD PRES SURE 05/11/23 04/19/25 History albuterol sulfate 90 mcg/actuation 2 inh inhalation Q4 H PRN SHORTNESS 05/13/23 04/19/25 Rx breath activated powder inhaler OF BREATH #1 ea amlodipine 5 mg tablet 5 mg PO QHS BLOOD PRESSURE 0 05/27/24 04/19/25 History Allergy/AdvReac Type Severity Reaction Status Date / Time poison dennis extract Allergy Intermediate Rash Verified 05/27/24 07:20 Social History number of children: 0 Smoking Status: Current every day smoker tobacco type: pipe ROS ROS Narrative General: Denies fever/chills HENT: Denies headache, denies stuffy nose, denies sore throat EYES: Denies changes in vision Resp: Cough with acosta sputum and increased shortness of breath Cardiac: Denies chest pain GI: Denies abdominal pain, denies changes in bowel, denies nausea/vomiting : Denies changes in urination Extremity: Denies swelling MSK: Denies weakness Neuro: Denies any numbness/tingling Heme: Denies any bleeding or bruising Skin: Denies rashes Psychiatric: No complaints voiced Vital Signs Vital Signs Vital Signs: 04/20/25 12:01 04/20/25 12:24 04/20/25 12:37 Temperature 97.4 F L Temperature Source Temporal Pulse Rate 118 H 107 H Respiratory Rate 26 H 20 H Respiratory Effort Short of Breath Labored Accessory Muscle Use Respiratory Depth Deep Respiratory Pattern Tachypnea Blood Pressure 156/92 H Blood Pressure Mean 113 Pulse Ox 92 Oxygen Delivery Method Room Air Nasal Cannula Oxygen Flow Rate (L/min) 2 04/20/25 13:04 04/20/25 14:00 04/20/25 14:05 Temperature 97.8 F 98 F 98 F Temperature Source Oral Oral Pulse Rate 82 92 94 Respiratory Rate 18 24 H 24 H Respiratory Effort Respiratory Depth Respiratory Pattern Blood Pressure 147/92 H 159/87 H 149/89 H Blood Pressure Mean 110 111 109 Pulse Ox 96 96 96 Oxygen Delivery Method Nasal Cannula Nasal Cannula Oxygen Flow Rate (L/min) 2 2 Weight Weight: 91.1 kg Body Mass Index (BMI) 33.4 Physical Exam Narrative General: Alert, oriented HEENT: Atraumatic, normocephalic Eyes: Anicteric, normal conjunctiva, extraocular movements grossly intact Neck: Supple Respiratory: Significant inspiratory and expiratory wheezes with increased respiratory effort Cardiovascular: Regular rate and rhythm GI: Soft, nontender, nondistended Extremities: No edema Musculoskeletal: Moving all extremities Neuro: No overt focal neurological deficits Skin: No rashes appreciated Psych: Cooperative Results Lab / Micro Data 04/20/25 12:25 04/20/25 12:25 Labs: Laboratory Results - last 24 hr 04/20/25 12:25: WBC 13.6 H, RBC 4.93, Hgb 15.9, Hct 46.4, MCV 94.1 H, MCH 32.3 H, MCHC 34.3, RDW Std Deviation 44.8 H, RDW Coeff of Monica 13.1, Plt Count 334, MPV9.3, Immature Gran % (Auto) 0.400, Neut % (Auto) 80.1 H, Lymph % (Auto) 9.1 L, Rutherford % (Auto) 7.4, Eos % (Auto) 2.3, Baso % (Auto) 0.7, Absolute Neuts (auto) 10.9 H, Absolute Lymphs (auto) 1.24, Nucleated RBC % 0, Sodium 133, Potassium 4.4, Chloride 95 L, Carbon Dioxide 22.7, Anion Gap 15, BUN 15, Creatinine 1.01, Estim Creat Clear Calc 74.63, Est GFR (MDRD) Non-Af 82, BUN/Creatinine Ratio 15.2, Glucose 116 H, Calcium 9.3, Troponin T High Sens < 6 Micro: Microbiology 04/20/25 12:45 Mucosa - Nose SARS-CoV-2, Influenza & RSV (PCR) - Final ABG Data ABG results: ABG 04/20/25 12:54 Specimen Type NIRMAL Sample Site Not entered VBG pH 7.40 VBG pO2 80 H VBG HCO3 29 H VBG Total CO2 30 VBG O2 Sat (Calc) 96 H VBG Base Excess 4 H POC Mix VBG pCO2 Pt Tmp 46.3 O2 Delivery Device Not entered Imaging Radiology Impression Chest X-Ray 04/20/25 12:14 IMPRESSION: No Acute Findings. Reading Location: [facility] Assessment & Plan Assessment/Plan (1) Acute exacerbation of chronic obstructive pulmonary disease (COPD): PLAN: Plan # Hypoxia secondary to acute exacerbation of COPD -Patient reportedly 86% for squad and is on 2 L of O2, is in respiratory distress with increased work of breathing reports slowly improving -Admit to floor, continuous O2 monitoring -Chest x-ray: No acute process -COVID negative, obtain respiratory panel, sputum culture if able -O2 in place, wean as tolerated -IV methylprednisone -Scheduled DuoNebs -Albuterol prn -Antibiotics: Azithromycin -Incentive spirometer -Mucinex - Does not seem patient has formal diagnosis of COPD however comes in with what seemed to be very convincing COPD exacerbations - Would benefit from following with pulmonology on discharge for outpatient PFTs #Hypertension - Continue home amlodipine 5 mg and losartan 50 mg, blood pressure currently 152/81 in the ED # Seasonal allergies - Continue Benadryl nightly will make this as needed #Tobacco use -Advise cessation -Nicotine replacement available if desired #DVT ppx: Lovenox subcu Madiha Razo MD Charges/Coding Visit Charges Inpatient E&M: 83713 Init Hosp L2 04/20/25 1530 <Electronically signed by Madiha Razo MD> Cosigner Signature (if applicable): CC: Dr. Madiha Razo MD; [facility]~ Signed [facility] Work Phone: 1(916) 569-720708-03-2025 Evaluation note* Diagnosis Onset Date Resolution Status Admit Date Hypoxia acute April 20 2:34pm Acute exacerbation of chroni c obstructive pulmonary disease (COPD) chronic April 20, 2025 2:34pm [facility] Work Phone: 1(423) 937-455908-03-2025 History and physical note [facility] Medical Records Department [address] [place] [id number] H&P Exam - Hospitalist 04/20/25 1434 MR#: [id number] Acct: [id number] Name: MELCHOR LYLE Rep #:[id number] : 1960 64 From: Madiha Razo MD PCP: [facility] Status:ADM IN Location: [facility] [id number]- [id number] HPI - General General Date of Admission: 04/20/25 Date of Service: 04/20/25 Chief Complaint: Increasing SOB HPI Narrative MELCHOR LYLE, is a 64 M with a history of suspected COPD, tobacco use, hypertension and seasonal allergies who presented to [facility] ED 04/20/2025 due to increasing shortness of breath and cough. In the ED temp 97.4, heart rate initially 119 with a blood pressure 156/92, respiratory rate 26and patient was 86% for with squad and was placed on 2 L of nasal cannula in theED. VBG with aPCO2 of 46, bicarb of 29 and PO2 of 80, normal pH, slight increase in white blood cell count to 13.6, no significant abnormalities on BMP and troponin within normal limits. Chest x-ray negative. Patient with significant work of breathing and wheezing, he was given a neb and steroids withsome improvement however continued to have difficulty and was not stable for discharge. Hospitalist contacted for admission. Patient evaluated at bedside. He reports increasing shortness of breath for 1 week with cough with peoples sputum, no fevers or chest pain, no other acute complaints. Reports he feels a little bit better after breathing treatment and steroids but is still significantly struggling. [facility] Medical History Hypertension Home Medications ?Medication ?Instructions ?Recorded ?Last Taken ?Type diphenhydramine HCl 25 mg tablet 50 mg PO QHS ALLERGIE S 05/11/23 04/19/25 History (Allergy) losartan 50 mg tablet (Cozaar) 50 mg PO QHS BLOOD PRES SURE 05/11/23 04/19/25 History albuterol sulfate 90 mcg/actuation 2 inh inhalation Q4 H PRN SHORTNESS 05/13/23 04/19/25 Rx breath activated powder inhaler OF BREATH #1 ea amlodipine 5 mg tablet 5 mg PO QHS BLOOD PRESSURE 0 05/27/24 04/19/25 History Allergy/AdvReac Type Severity Reaction Status Date / Time poison dennis extract Allergy Intermediate Rash Verified 05/27/24 07:20 Social History number of children: 0 Smoking Status: Current every day smoker tobacco type: pipe ROS ROS Narrative General: Denies fever/chills HENT: Denies headache, denies stuffy nose, denies sore throat EYES: Denies changes in vision Resp: Cough with acosta sputum and increased shortness of breath Cardiac: Denies chest pain GI: Denies abdominal pain, denies changes in bowel, denies nausea/vomiting : Denies changes in urination Extremity: Denies swelling MSK: Denies weakness Neuro: Denies any numbness/tingling Heme: Denies any bleeding or bruising Skin: Denies rashes Psychiatric: No complaints voiced Vital Signs Vital Signs Vital Signs: 04/20/25 12:01 04/20/25 12:24 04/20/25 12:37 Temperature 97.4 F L Temperature Source Temporal Pulse Rate 118 H 107 H Respiratory Rate 26 H 20 H Respiratory Effort Short of Breath Labored Accessory Muscle Use Respiratory Depth Deep Respiratory Pattern Tachypnea Blood Pressure 156/92 H Blood Pressure Mean 113 Pulse Ox 92 Oxygen Delivery Method Room Air Nasal Cannula Oxygen Flow Rate (L/min) 2 04/20/25 13:04 04/20/25 14:00 04/20/25 14:05 Temperature 97.8 F 98 F 98 F Temperature Source Oral Oral Pulse Rate 82 92 94 Respiratory Rate 18 24 H 24 H Respiratory Effort Respiratory Depth Respiratory Pattern Blood Pressure 147/92 H 159/87 H 149/89 H Blood Pressure Mean 110 111 109 Pulse Ox 96 96 96 Oxygen Delivery Method Nasal Cannula Nasal Cannula Oxygen Flow Rate (L/min) 2 2 Weight Weight: 91.1 kg Body Mass Index (BMI) 33.4 Physical Exam Narrative General: Alert, oriented HEENT: Atraumatic, normocephalic Eyes: Anicteric, normal conjunctiva, extraocular movements grossly intact Neck: Supple Respiratory: Significant inspiratory and expiratory wheezes with increased respiratory effort Cardiovascular: Regular rate and rhythm GI: Soft, nontender, nondistended Extremities: No edema Musculoskeletal: Moving all extremities Neuro: No overt focal neurological deficits Skin: No rashes appreciated Psych: Cooperative Results Lab / Micro Data 04/20/25 12:25 04/20/25 12:25 Labs: Laboratory Results - last 24 hr 04/20/25 12:25: WBC 13.6 H, RBC 4.93, Hgb 15.9, Hct 46.4, MCV 94.1 H, MCH 32.3 H, MCHC 34.3, RDW Std Deviation 44.8 H, RDW Coeff of Monica 13.1, Plt Count 334, MPV9.3, Immature Gran % (Auto) 0.400, Neut% (Auto) 80.1 H, Lymph % (Auto) 9.1 L, Rutherford % (Auto) 7.4, Eos % (Auto) 2.3, Baso % (Auto) 0.7, Absolute Neuts (auto) 10.9 H, Absolute Lymphs (auto) 1.24, Nucleated RBC % 0, Sodium 133, Potassium 4.4,Chloride 95 L, Carbon Dioxide 22.7, Anion Gap 15, BUN 15, Creatinine 1.01, Estim Creat Clear Calc 74.63, Est GFR (MDRD) Non-Af 82, BUN/Creatinine Ratio 15.2, Glucose 116 H, Calcium 9.3, Troponin T High Sens < 6 Micro: Microbiology 04/20/25 12:45 Mucosa - Nose SARS-CoV-2, Influenza & RSV (PCR) - Final ABG Data ABG results: ABG 04/20/25 12:54 Specimen Type NIRMAL Sample Site Not entered VBG pH 7.40 VBG pO2 80 H VBG HCO3 29 H VBG Total CO2 30 VBG O2 Sat (Calc) 96 H VBG Base Excess 4 H POC Mix VBG pCO2 Pt Tmp 46.3 O2 Delivery Device Not entered Imaging Radiology Impression Chest X-Ray 04/20/25 12:14 IMPRESSION: No Acute Findings. Reading Location: [facility] Assessment & Plan Assessment/Plan (1) Acute exacerbation of chronic obstructive pulmonary disease (COPD): PLAN: Plan # Hypoxia secondary to acute exacerbation of COPD -Patient reportedly 86% for squad and is on 2 L of O2, is in respiratory distress with increased work of breathing reports slowly improving -Admit to floor, continuous O2 monitoring -Chest x-ray: No acute process -COVID negative, obtain respiratory panel, sputum culture if able -O2 in place, wean as tolerated -IV methylprednisone -Scheduled DuoNebs -Albuterol prn -Antibiotics: Azithromycin -Incentive spirometer -Mucinex - Does not seem patient has formal diagnosis of COPD however comes in with what seemed to be very convincing COPD exacerbations - Would benefit from following with pulmonology on discharge for outpatient PFTs #Hypertension - Continue home amlodipine 5 mg and losartan 50 mg, blood pressure currently 152/81 in the ED # Seasonal allergies - Continue Benadryl nightly will make this as needed #Tobacco use -Advise cessation -Nicotine replacement available if desired #DVT ppx: Lovenox subcu Madiha Razo MD Charges/Coding Visit Charges Inpatient E&M: 72156 Init Hosp L2 04/20/25 1530 Cosigner Signature (if applicable): CC: Dr. Madiha Razo MD; [facility]~ Signed [facility]08-03-2025 Radiology Diagnostic study note [facility] Imaging Services [address] [place] [address] Chest 1 View (Portable) MR#: [id number] Acct: [id number] Name: VALDOMELCHOR Rep #: [id number] : 1960 M 64 From: Radha Ortiz MD PCP: [facility] Status: PRE ER Study:Chest 1 View (Portable) Date of Exam: 04/20/25 Exam# [id number] Ordering Dr: Minal Escobedo PROCEDURE: CHEST 1 VIEW (PORTABLE) 04/20/2025 REASON FOR EXAM: DYSPNEA TECHNIQUE: Frontal view of the chest. COMPARISON: Chest radiograph 05/27/2024. FINDINGS: Hardware: None. Heart: The heart size is normal. Lungs: No focal consolidation, pleural effusion or pneumothorax. Low lung volumes bilaterally. Bones: Degenerative changes are identified within the thoracic spine. RAD/Chest 1 View (Portable) IMPRESSION: No Acute Findings. Reading Location: [id number] CC: JEY Sheppard; [facility] ~ [employer]: Signed [facility]09-11-2024 [facility] Medical Records Department [address] [place] [address] Discharge Summary 05/29/24 1252 MR#: [id number] Acct: [id number] Name: MELCHOR LYLE Rep #: [id number] : 1960 63 From: Madiha Razo MD PCP: [facility] Status:DIS IN Location: [facility] [id number] Providers Date of Admission: 05/27/24 Date of Discharge: 05/29/24 Primary Care Physician: [facility] Reason For Visit: COPD EXACERBATION Diagnosis [...] COPD and tobacco use who presented to [facility] ED 05/27/2024 with increasing shortness of [...] -For your continued congestion please obtain Mucinex dpve-mzu-hythhcy to help with your congestion symptoms -Continue [...] 89.1 H, Lymph % (Auto) 6.7 L, Rutherford % (Auto) 3.0, Eos % (Auto) 0.0, [...] - Final 05/27/24 1 (more content not included)...[facility]08-26-2023 Progress note Author Linsey Spivey [facility] May 13, 2023 12:17pm Note Date/Time May 13, 2023 6: 22am [facility] Medical Records Department [address] [place] [address] Progress Note - Hospitalist 05/13/23 0621 MR#: [id number] Acct: [id number] Name: MELCHOR LYLE Rep #:[id number] : 1960 62 From: Linsey Spivey MD PCP: [facility] Status:ADM IN Location: MS3 [id number] Reason for Visit Reason for Visit: Diagnoses [...] appropriate follow-up and takehis medications with the [place] PCP evaluation hopefully within the next 3 to 5 daysbut did request that [place] be notified to facilitate further earlier follow-up. [...] oriented x 3 and cooperative, seated upright Medr bed,significantly improved, moving air with much greater [...] use/Pipe Tobacco use who presents to the [facility] ED on 05/11/23 with dyspnea and [...] Patient reportedly living with his sister and kjorrjp-qv-pai, notable poor hygiene in the ED with concern for bedbugs, case management/social work involved for discharge planning, PT and OT assessments also. #5. Tobacco Abuse: Encouraged cessation, inpatient consultation per RT, NR if desired. #6. DVT prophylaxis: Lovenox. #7. CODE STATUS: Full code. Charges/Coding Visit Charges Inpatient E&M: 79612 Subs Hosp L2 05/13/23 1217 <Electronically signed by Linsey Spivey MD> Cosigner Signature (if applicable): CC: ~ Signed [facility] Work Phone: 1(695) 265-476108-25-2023 Progress note Author [facility] May 12, 2023 3:42pm Note Date/Time May 12, 2023 7: 04am [facility] Medical Records Department [address] [place] [address] Progress Note - Hospitalist 05/12/23703 MR#: [id number] Acct: [id number] Name: MELCHOR LYLE Rep #:[id number] : 1960 62 From: Linsey Spivey MD PCP: [place] [place] Status:ADM IN Location: [place] [id number] Reason for Visit Reason for Visit: Diagnoses [...] (Auto) 65.2, Lymph % (Auto) 17.7 L, Rutherford % (Auto) 8.6, Eos % (Auto) 7.0 H, Baso % (Auto) 1.1 H, Absolute Neuts (auto) 5.3, Absolute Lymphs (auto) 1.43, Nucleated RBC % 0, PT 13.2, INR 1.0, APTT 26.3, D- Dimer Quant (PE/DVT) 0.33, Sodium 137, Potassium 3.9, [...] x 3 and cooperative, seated upright in MS bed, fatigued but notes feeling improved since [...] use/Pipe Tobacco use who presents to the [facility] ED on 05/11/23 with dyspnea and [...] Patient reportedly living with his sister and euyvmgw-qu-imt, notable poor hygiene in the ED with concern for bedbugs, case management/social work involved for discharge planning, PT and OT assessments also. #5. Tobacco Abuse: Encouraged cessation, inpatient consultation per RT, NR if desired. #6. DVT prophylaxis: Lovenox. #7. CODE STATUS: Full code. Charges/Coding Visit Charges Inpatient E&M: 83381 Subs Hosp L2 05/12/23 1542 <Electronically signed by Linsey Spivey MD> Cosigner Signature (if applicable): CC: ~ Signed [facility] Work Phone: 1(387) 679-726408-25-2023 Discharge summary Author Frederick Cervantes [facility] May 12, 2023 12:50am Note Date/Time May 11, 2023 1: 42pm [facility] Medical Records Department [address] [place] [address] Emergency Department Summary 05/11/23 MR#: [id number] Acct: [id number] Name: MELCHOR LYLE Rep #:[id number] : 1960 62 From: Frederick Lucia PCP: [facility] Status:ADM LYLA Location: [place] [address] HPI History of Present Illness Chief Complaint: [...] Recent immobilization, Recent surgery or Recent travel [facility] Medical History Hypertension Home Medications diphenhydramine HCl 25 mg tablet (Allergy) 50 mg PO QHS 05/11/23 [History Last Taken Unknown] losartan 50 mg tablet (Cozaar) 50 mg PO DAILY 05/11/23 [History Last Taken Unknown] Allergy/AdvReac Type Severity Reaction Status Date / Time poison dennis extract Allergy Intermediate Rash Verified 05/11/23 14:25 Social History (Updated 05/11/23 @ 20:21 by Julia Joes) number of children: 0 Smoking Status: Current [...] (Auto) 65.2 Lymph % (Auto) 17.7 L Rutherford % (Auto) 8.6 Eos % (Auto) 7.0 [...] sinus rhythm with a rate of 82. ID interval, QRS interval, and QTc intervals were all normal. [place] was normal. There are no acute ST [...] pulmonary disease Disposition Disposition: Acute Care Hospital [facility] Discharge Date/Time: 05/11/23 19:34 What to do if you have Problems For any increased pain, shortness of breath, bleeding, nausea or vomiting, chestpain, or any unexpected problems, contact your Primary Care Provider. Call [facility] ([phone]) or report to the closest Emergency Room. Call 911 if necessary. 05/12/23 0050 <Electronically signed by Frederick Cervantes DO> Cosigner Signature (if applicable): CC: [facility] ~ Signed [facility] Work Phone: 1(186) 475-114708-25-2023 History and physical note [facility] May 11, 2023 11:29pm Note Date/Time May 11, 2023 4: 58pm [facility] Medical Records Department [address] [place] [address] H&P Exam - Hospitalist 05/11/23 1657 MR#: [id number] Acct: [id number] Name: MELCHOR LYLE Rep #:[id number] : 1960 62 From: Chino castano DO PCP: [place] [place] Status:ADM LYLA Location: [place] [id number] HPI - General General Date of Admission: 05/11/23 Date of Service: 05/11/23 Chief Complaint: Shortness of breath, wheezing HPI Narrative MELCHOR LYLE is a 62 M with history of tobacco use and hypertension who presented to [facility] ED on 05/11/2023 with worsening shortness [...] interstitial prominence, no focal consolidationor acute findings. [facility] Medical History Hypertension Home Medications diphenhydramine HCl [...] (Auto) 65.2, Lymph % (Auto) 17.7 L, Rutherford % (Auto) 8.6, Eos % (Auto) 7.0 H, Baso % (Auto) 1.1 H, Absolute Neuts (auto) 5.3, Absolute Lymphs (auto) 1.43, Nucleated RBC % 0, PT 13.2, INR 1.0, APTT 26.3, D- Dimer Quant (PE/DVT) 0.33, Sodium 137, Potassium 3.9, [...] tobacco use and hypertension who presented to [facility] ED on 05/11/2023 with worsening shortness [...] Patient reportedly lives with his sister and alasocf-lw-swc. His sister has severe COPD and wears chronic oxygen at home. Akqxixx-dq-xsc does a lot of tasks around the [...] 55 minutes. Charges/Coding Visit Charges Inpatient E&M: 97839 Init Hosp L2 05/11/23 9094 <Electronically signed by Chino Sandoval DO> Cosigner Signature (if applicable): CC: Dr. Chino Sandoval DO; [facility]~ Signed [facility] Work Phone: Discharge summary Author Linsey Spivey [facility] May 13, 2023 12:19pm Note Date/Time May 13, 2023 12 :12pm [facility] Medical Records Department [address] [place] [address] Instructions for Home/Discharge Instructions 05/13/23 1211 MR#: [id number] Acct: [id number] Name: MELCHOR LYLE Rep #:[id number] : 1960 62 From: Linsey Spivey MD PCP: [place] [place] Status:ADM IN Discharge Instructions Diet Discharge [...] be discussed in further detail at your follow- up appointment, if applicable. Discharge Plan Admission Admit Date/Time: 05/12/23 10:06 Primary Reason for Your Visit: Acute Hypoxia secondary to Acute on Suspected Chronic COPD Attending Provider: Linsey Spivey Primary Care Provider: [place] [place] Consulting Providers: Chino Sandoval Instructions Patient [...] planned result follow-up upon your primary care follow- up. Your blood pressure was above goal during [...] Order can be placed): Home, Self Care 05/13/231211<Electronically signed by Linsey Spivey MD>Linsey Spivey MD CC: Dr. Chino Sandoval DO; [facility] ~ Signed ADDENDUM by Dr. Linsey Spivey MD on 05/13/23 at 1219 ECHO resulted prior to discharge with noted LVEF 65%, mild 1+ at [facility], mildly dilated aortic root. 05/13/23 1219<Electronically signed by Linsey Spivey MD>Linsey Spivey MD cc: Dr. Chino Sandoval DO; [facility] ~* Signed [facility] Work Phone: Discharge summary Author Linsey Spivey [facility] May 13, 2023 12:22pm Note Date/Time May 13, 2023 12 :18pm [facility] Medical Records Department [address] [place] [address] Discharge Summary 05/13/231216 MR#: [id number] Acct: [id number] Name: VALDOMELCHOR Rep #:[id number] : 1960 62 From: Linsey Spivey MD PCP: [place] [place] Status:ADM IN Location: [place] [address]1 Providers Date of Admission: 05/12/23 Date of Discharge: 05/13/23 Primary Care Physician: [facility] Reason For Visit: COPD EXACERBATION Diagnosis [...] use/Pipe Tobacco use who presented to the [facility] ED on 05/11/23 with dyspnea and [...] 90.1 H, Lymph % (Auto) 7.2 L, Rutherford % (Auto) 1.5, Eos % (Auto) 0.0, [...] Attending Provider: Linsey Spivey Primary Care Provider: [facility] Consulting Providers: Chino Sandoval Instructions Patient Instructions: [...] mg PO DAILY Referrals / Follow Up: [facility] [Primary Care Provider] - (Please follow-up within 3-5 days to review admission.) Disposition Disposition (needs filled in before D/C Order can be placed): Home, Self Care Charges/Coding Visit Charges Inpatient E&M: 56468 Disch Hosp >30min 05/13/23 1222 <Electronically signed by Linsey Spivey MD> Cosigner Signature (if applicable): CC: Dr. Linsey Spivey MD; [facility]~ Signed [facility] Work Phone: Evaluation note* Diagnosis Onset Date Resolution Status Hypoxia acute Acute exacerbation of chroni c obstructive pulmonary disease chronic [facility] Work Phone: Evaluation note* Diagnosis Onset Date Resolution Status Admit Date Acute exacerbation of chroni c obstructive pulmonary disease (COPD) chronic April 20, 2025 2:34pm [facility] Work Phone: History and physical note Author Madiha Razo [facility] Note Date/Time April 20, 2025 3:3 0pm [facility] Medical Records Department [address] [place] [address] H&P Exam - Hospitalist 04/20/25 1434 MR#: [id number] Acct: [id number] Name: MELCHOR LYLE Rep #:[id number] : 1960 64 From: Madiha Razo MD PCP: [facility] Status:ADM IN Location: [facility] [id number] HPI - General General Date of Admission: 04/20/25 Date of Service: 04/20/25 Chief Complaint: Increasing SOB HPI Narrative MELCHOR LYLE, is a 64 M with a history of suspected COPD, tobacco use, hypertension and seasonal allergies who presented to [facility] ED 04/20/2025 due to increasing shortness of breath and cough. In the ED temp 97.4, heart rate initially 119 with a blood pressure 156/92, respiratory rate 26and patient was 86% for with squad and was placed on 2 L of nasal cannula in theED. VBG with a PCO2 of 46, bicarb of 29 and PO2 of 80, normal pH, slight increase in white blood cell count to 13.6, no significant abnormalities on BMP and troponin within normal limits. Chest x-ray negative. Patient with significant work of breathing and wheezing, he was given a neb and steroids withsome improvement however continued to have difficulty and was not stable for discharge. Hospitalist contacted for admission. Patient evaluated at bedside. He reports increasing shortness of breath for 1 week with cough with peoples sputum, no fevers or chest pain, no other acute complaints. Reports he feels a little bit better after breathing treatment and steroids but is still significantly struggling. [facility] Medical History Hypertension Home Medications ?Medication ?Instructions ?Recorded ?Last Taken ?Type diphenhydramine HCl 25 mg tablet 50 mg PO QHS ALLERGIE S 05/11/23 04/19/25 History (Allergy) losartan 50 mg tablet (Cozaar) 50 mg PO QHS BLOOD PRES SURE 05/11/23 04/19/25 History albuterol sulfate 90 mcg/actuation 2 inh inhalation Q4 H PRN SHORTNESS 05/13/23 04/19/25 Rx breath activated powder inhaler OF BREATH #1 ea amlodipine 5 mg tablet 5 mg PO QHS BLOOD PRESSURE 0 05/27/24 04/19/25 History Allergy/AdvReac Type Severity Reaction Status Date / Time poison dennis extract Allergy Intermediate Rash Verified 05/27/24 07:20 Social History number of children: 0 Smoking Status: Current every day smoker tobacco type: pipe ROS ROS Narrative General: Denies fever/chills HENT: Denies headache, denies stuffy nose, denies sore throat EYES: Denies changes in vision Resp: Cough with acosta sputum and increased shortness of breath Cardiac: Denies chest pain GI: Denies abdominal pain, denies changes in bowel, denies nausea/vomiting : Denies changes in urination Extremity: Denies swelling MSK: Denies weakness Neuro: Denies any numbness/tingling Heme: Denies any bleeding or bruising Skin: Denies rashes Psychiatric: No complaints voiced Vital Signs Vital Signs Vital Signs: 04/20/25 12:01 04/20/25 12:24 04/20/25 12:37 Temperature 97.4 F L Temperature Source Temporal Pulse Rate 118 H 107 H Respiratory Rate 26 H 20 H Respiratory Effort Short of Breath Labored Accessory Muscle Use Respiratory Depth Deep Respiratory Pattern Tachypnea Blood Pressure 156/92 H Blood Pressure Mean 113 Pulse Ox 92 Oxygen Delivery Method Room Air Nasal Cannula Oxygen Flow Rate (L/min) 2 04/20/25 13:04 04/20/25 14:00 04/20/25 14:05 Temperature 97.8 F 98 F 98 F Temperature Source Oral Oral Pulse Rate 82 92 94 Respiratory Rate 18 24 H 24 H Respiratory Effort Respiratory Depth Respiratory Pattern Blood Pressure 147/92 H 159/87 H 149/89 H Blood Pressure Mean 110 111 109 Pulse Ox 96 96 96 Oxygen Delivery Method Nasal Cannula Nasal Cannula Oxygen Flow Rate (L/min) 2 2 Weight Weight: 91.1 kg Body Mass Index (BMI) 33.4 Physical Exam Narrative General: Alert, oriented HEENT: Atraumatic, normocephalic Eyes: Anicteric, normal conjunctiva, extraocular movements grossly intact Neck: Supple Respiratory: Significant inspiratory and expiratory wheezes with increased respiratory effort Cardiovascular: Regular rate and rhythm GI: Soft, nontender, nondistended Extremities: No edema Musculoskeletal: Moving all extremities Neuro: No overt focal neurological deficits Skin: No rashes appreciated Psych: Cooperative Results Lab / Micro Data 04/20/25 12:25 04/20/25 12:25 Labs: Laboratory Results - last 24 hr 04/20/25 12:25: WBC 13.6 H, RBC 4.93, Hgb 15.9, Hct 46.4, MCV 94.1 H, MCH 32.3 H, MCHC 34.3, RDW Std Deviation 44.8 H, RDW Coeff of Monica 13.1, Plt Count 334, MPV9.3, Immature Gran % (Auto) 0.400, Neut % (Auto) 80.1 H, Lymph % (Auto) 9.1 L, Rutherford % (Auto) 7.4, Eos % (Auto) 2.3, Baso % (Auto) 0.7, Absolute Neuts (auto) 10.9 H, Absolute Lymphs (auto) 1.24, Nucleated RBC % 0, Sodium 133, Potassium 4.4, Chloride 95 L, Carbon Dioxide 22.7, Anion Gap 15, BUN 15, Creatinine 1.01, Estim Creat Clear Calc 74.63, Est GFR (MDRD) Non-Af 82, BUN/Creatinine Ratio 15.2, Glucose 116 H, Calcium 9.3, Troponin T High Sens < 6 Micro: Microbiology 04/20/25 12:45 Mucosa - Nose SARS-CoV-2, Influenza & RSV (PCR) - Final ABG Data ABG results: ABG 04/20/25 12:54 Specimen Type NIRMAL Sample Site Not entered VBG pH 7.40 VBG pO2 80 H VBG HCO3 29 H VBG Total CO2 30 VBG O2 Sat (Calc) 96 H VBG Base Excess 4 H POC Mix VBG pCO2 Pt Tmp 46.3 O2 Delivery Device Not entered Imaging Radiology Impression Chest X-Ray 04/20/25 12:14 IMPRESSION: No Acute Findings. Reading Location: [facility] Assessment & Plan Assessment/Plan (1) Acute exacerbation of chronic obstructive pulmonary disease (COPD): PLAN: Plan # Hypoxia secondary to acute exacerbation of COPD -Patient reportedly 86% for squad and is on 2 L of O2, is in respiratory distress with increased work of breathing reports slowly improving -Admit to floor, continuous O2 monitoring -Chest x-ray: No acute process -COVID negative, obtain respiratory panel, sputum culture if able -O2 in place, wean as tolerated -IV methylprednisone -Scheduled DuoNebs -Albuterol prn -Antibiotics: Azithromycin -Incentive spirometer -Mucinex - Does not seem patient has formal diagnosis of COPD however comes in with what seemed to be very convincing COPD exacerbations - Would benefit from following with pulmonology on discharge for outpatient PFTs #Hypertension - Continue home amlodipine 5 mg and losartan 50 mg, blood pressure currently 152/81 in the ED # Seasonal allergies - Continue Benadryl nightly will make this as needed #Tobacco use -Advise cessation -Nicotine replacement available if desired #DVT ppx: Lovenox subcu Maidha Razo MD Charges/Coding Visit Charges Inpatient E&M: 54773 Init Hosp L2 04/20/25 1530 <Electronically signed by Madiha Razo MD> Cosigner Signature (if applicable): CC: Dr. Madiha Razo MD; [facility]~ Signed [facility] Work Phone: Reason for referral (narrative)No reason for referral information availableWMercy [facility] Work Phone: Chief Complaint and Reason for Visit Chief Complaint COPD EXACERBATION COPD EXACERBATION COPD EXACERBATION Reason for Visit Hypoxia Acute exacerbation of chronic obstructive pulmonary disease Chief Complaint Admit Date HYPXIA AND COPD EXACERBATION April 20, 2025 2:34pm Reason for Visit Admit Date Acute exacerbation of chroni c obstructive pulmonary disease (COPD) April 20, 2025 2:34pm Chief Complaint Admit Date HYPXIA AND COPD EXACERBATION April 20, 2025 2:34pm HYPXIA AND COPD EXACERBATION April 21, 2025 10:54am HYPXIA AND COPD EXACERBATION April 22, 2025 10:58am Reason for Visit Admit Date Hypoxia April 20, 2025 2:3 4pm Acute exacerbation of chroni c obstructive pulmonary disease (COPD) April 20, 2025 2:34pm Advance Directives No Advanced Directives Records Found Advance Directive Response Recorded Date/ Time Living Will No May 11 8:15pm Power of Reception Manager No May 11 023 8:15pm Advance Directive Response Recorded Date/ Time Do you have a Healthcare Power of Reception Manager? No April 20, 2025 12:24pm Advance Directive Response Recorded Date/ Time Do you have a Healthcare Power of Reception Manager? No April 20, 2025 3:42pm Summary Purpose Family History No Family History Records Found Additional Source Comments Care Teams (unrecognized sec tion and content) Team Status: Active Member Role/Relationship Status Dates [facility] Primary Care Provider Active Team Status: Inactive Member Role/Relationship Status Dates [facility] Primary [place] [facility] Provider Active Start: April 20, 2025 End: April 22, 2025 Dr. Oneal Ng DO Emergency Provider Activ e Start: April 20, 2025 End: April 22, 2025 Dr. Madiha Razo MD Admit Provider Active Star t: April 20, 2025 End: April 22, 2025 Dr. Madiha Razo MD Other Provider Active Star t: April 20, 2025 End: April 22, 2025 Dr. Luis Hernandez MD Attending Provider Active Start: April 20, 2025 End: April 22, 2025 Dr. Chino Sandoval DO Other Provider Active Start: April 20, 2025 End: April 22, 2025 Team Status: Active Member Role/Relationship Status Dates [facility] Provider Active Start: April 21, 2025 Dr. Oneal Ng DO Emergency Provider Activ e Start: April 21, 2025 Dr. Madiha Razo MD Admit Provider Active Star t: April 21, 2025 Dr. Madiha Razo MD Other Provider Active Star t: April 21, 2025 Dr. Chino Sandoval DO Attending Provider Active Start: April 21, 2025 Dr. Chino Sandoval DO Other Provider Active Start: April 21, 2025 Team Status: Active Member Role/Relationship Status Dates [facility] Primary Care Provider Active Start: April 22, 2025 Dr. Oneal Ng DO Emergency Provider Activ e Start: April 22, 2025 Dr. Madiha Razo MD Admit Provider Active Star t: April 22, 2025 Dr. Madiha Razo MD Other Provider Active Star t: April 22, 2025 Dr. Luis Hernandez MD Attending Provider Active Start: April 22, 2025 Dr. Luis Hernandez MD Other Provider Active Star t: April 22, 2025 Dr. Chino Sandoval DO Other Provider Active Start: April 22, 2025 Team Status: Active Member Role Status Dates [facility] Primary Care Provider Active Team Status: Active Member Role Status Dates [facility] Primary Care Provider Active Dr. Frederick Cervantes DO Emergency Provider Active Dr. Chino Sandoval , DO Admit Provi lynne, Attending Provider, Other Provider Active Team Status: Active Member Role Status Dates [facility] Primary Care Provider Active Dr. Tay Huggins MD Attending Provider Active Team Status: Active Member Role Status Dates [facility] Primary Care Provider Active Dr. Frederick Cervantes , DO Emergency Provider Active Dr. Chino Sandoval DO Admit Provider, Other Pro vider Active Dr. Linsey Spivey MD Attending Provider, Other Prov ider Active Team Status: Inactive Member Role Status Dates [facility] Primary Care Provider Active Dr. Frederick Cervantes DO Emergency Provider Active Dr. Chino Sandoval DO Admit Provider, Other Pro vider Active Dr. Linsey Spivey MD Attending Provider Active Team Status: Active Member Role/Relationship Status Dates [facility] Primary Care Provider Active Start: April 20, 2025 Dr. Oneal Ng , DO Emergency Provider Activ e Start: April 20, 2025 Dr. Madiha Razo MD Admit Provider Active Star t: April 20, 2025 Dr. Madiha Razo MD Attending Provider Active Start: April 20, 2025 Dr. Madiha Razo MD Other Provider Active Star t: April 20, 2025 Goals (unrecognized section and content) Goals may be documented in a n alternate section (unrecognized sect ion and content) No Status Records Found INFORMATION SOURCE (unrecogn ized section and content) DATE CREATED AUTHOR 05/01/2025 [facility] FOR RECORDS PERTAINING TO PATIENTS WHO [...] BE BASED ON THE PRIMARY CLINICAL RECORDS. [employer] [facility]. provides no warranty or guarantee of the accuracy or completeness of information in this document.
--- NOTE | 2025-05-18 21:20 | RAD_ITS ---
PROCEDURE: CHEST PA AND LATERAL 05/18/2025 REASON FOR EXAM: SOB TECHNIQUE: Procedure Code: RADCXR Modality: DX Procedure: CHEST PA AND LATERAL COMPARISON: April 20, 2025 FINDINGS: Hardware: EKG leads Heart: Normal Mediastinum: Aortic atherosclerosis. Lungs: Clear. No pneumothorax or pleural effusion. Bones: Mild curvature thoracolumbar spine to the right. RAD/Chest PA and Lateral IMPRESSION: No acute abnormality Reading Location: [id number]
[2025-05-18 21:22] LABS: Hematocrit 44.4 % (40-54); Hemoglobin 14.9 g/dL (13.0-16.5); Immature Granulocytes Count 0.030 X10^3/uL (0.0-0.0); Mean Corp Hgb Conc 33.6 g/dL (32-36); Mean Corpuscular Volume 96.1 fL (80-94); Mean Platelet Vol. 9.2 fl (6.2-12.0); NRBC Flagged by Analyzer 0 % (0-5); Platelet Count 296 K/mm3 (150-450); RBC Distribution Width CV 13.7 % (11.6-14.6); RBC Distribution Width SD 48.1 fl (35.1-43.9); Red Blood Count 4.62 M/mm3 (4.6-6.2); White Blood Count 7.8 K/mm3 (4.4-11.0)
[2025-05-18 21:40] LABS: Anion Gap 9 (5-15); BUN 8 mg/dL (4-19); BUN/Creat Ratio 8.5 RATIO (10-20); Calcium,Total 9.0 mg/dL (7.6-11.0); Carbon Dioxide 28.3 mmol/L (21.0-32.0); Chloride 100 mmol/L (98-108); Estimated Creatinine Clearance 75.89 ml/min (50-250); Glucose 117 mg/dL (70-99); Potassium 4.2 mmol/L (3.3-5.1)
[2025-05-18] MEDS: Albuterol 2.5 MG/3 ML VIAL.NEB. INHALATION ×3 (22:24)
[2025-05-18 22:40] LABS: Allen Test Positive; Base Excess 6 mmol/L (-2 to +2); FI02 2.0; PO2 66 mmHG (75-100); SITE R Radial; SO2 92 % (95-99)
--- NOTE | 2025-05-18 23:20 | EX.ED.DYSGE1 ---
HPI History of Present Illness Chief Complaint: Shortness of Breath Detail of Chief Complaint: Shortness of breath, hypoxia, nonproductive cough and wheezing Informant: patient Onset/Context/Timing Onset: Days (This episode started a couple of days ago.) Context: Sudden Onset Timing: Continuous and Waxes and wanes Quality: Dyspnea, dyspnea on exertion, cough, wheezing Location: Respiratory Current Severity: Severe Maximum Severity: Severe Worsened by: On no bronchodilators. Relieved by: Nothing Associated Symptoms Associated Symptoms: Mild congestion Narrative Narrative: Patient is a 64-year-old male. He has history of COPD. He was seen on April 20, 2025 for COPD exacerbation but he was treated with azithromycin and burst of steroids. He was seen May 2024 for COPD exacerbation and April 2023 for COPD exacerbation. Patient denies fever or chills. Patient denies headache, visual, ocular auditory symptoms. He has mild nasal congestion. Denies ear pain. His cough is essentially nonproductive. He does bring up some clear sputum. This is not unusual for him. He has not smoked in many years. He does smoke pipe. He does not inhale. He denies abdominal pain, nausea, vomit or diarrhea. He denies leg pain, swelling or discoloration. He has no history of VTE. He has no history of congestive heart failure. He denies orthopnea or PND. Prior similar symptoms: Yes Recent Illness/Hospitalization: No [facility] Medical History Kidney stones Smoker Hypertension Home Medications ?Medication ?Instructions ?Recorded ?Last Taken ?Type diphenhydramine HCl 25 mg tablet 50 mg PO BID PRN ALLERGIES 05/11/23 04/19/25 History (Allergy) losartan 50 mg tablet (Cozaar) 50 mg PO DAILY BLOOD PRESSURE 05/11/23 04/19/25 History albuterol sulfate 90 mcg/actuation 2 inh inhalation Q4H PRN SHORTNESS 05/13/23 04/19/25 Rx breath activated powder inhaler OF BREATH #1 ea amlodipine 5 mg tablet 5 mg PO DAILY BLOOD PRESSURE 05/27/24 04/19/25 History guaifenesin 1,200 mg tablet, 1,200 mg PO BID #20 tabs 04/22/25 Unknown Rx extended release 12 hr (Mucus Relief ER) Allergy/AdvReac Type Severity Reaction Status Date / Time poison dennis extract Allergy Intermediate Rash Verified 05/18/25 20:49 Social History number of children: 0 Smoking Status: Current every day smoker tobacco type: pipe ROS ROS ED Constitutional Constitutional ED: Denies chills, fever(s), subjective or sweats Eyes Eyes: Denies blurry vision or change in vision ENT ENT ED: Denies ear pain, rhinorrhea or sore throat Cardiovascular Cardiovascular: Denies chest pain, orthopnea, palpitations or paroxysmal nocturnal dyspnea Respiratory/Chest Respiratory/Chest: Reports cough, dyspnea, dyspnea on exertion and sputum; Denies orthopnea or paroxysmal nocturnal dyspnea Gastrointestinal Gastrointestinal: Denies abdominal pain, diarrhea, nausea or vomiting Genitourinary Genitourinary ED: Denies dysuria, hematuria or urinary frequency Musculoskeletal Musculoskeletal: Denies arthralgias or myalgias Integumentary Denies rash Neurologic Neurologic: Denies headache(s) or paresthesias Psychiatric Psychiatric: Reports anxiety Endocrine Endocrinology: Denies cold intolerance or heat intolerance Hematologic/Lymphatic Hematologic/Lymphatic: Reports systems reviewed and no addt'l complaints, except as documented EXAM Physical Exam Const Vital Signs: 05/18/25 20:40 05/18/25 20:46 05/18/25 20:47 Temperature 98 F 98 F Temperature Source Oral Oral Pulse Rate 95 92 Respiratory Rate 30 H 30 H Respiratory Effort Short of Breath Labored Blood Pressure 144/78 H 144/78 H Blood Pressure Mean 100 100 Pulse Ox 97 97 Oxygen Delivery Method Nasal Cannula Nasal Cannula Oxygen Flow Rate (L/min) 3 2 05/18/25 20:50 05/18/25 21:00 05/18/25 21:00 Temperature Temperature Source Pulse Rate 97 Respiratory Rate 31 H 30 H Respiratory Effort Blood Pressure Blood Pressure Mean Pulse Ox 97 92 92 Oxygen Delivery Method Room Air Room Air Oxygen Flow Rate (L/min) 05/18/25 21:00 05/18/25 21:06 05/18/25 21:15 Temperature 99.4 F H Temperature Source Oral Pulse Rate 91 Respiratory Rate 29 H Respiratory Effort Blood Pressure 138/80 H 138/77 H Blood Pressure Mean 97 95 Pulse Ox 93 Oxygen Delivery Method Oxygen Flow Rate (L/min) 05/18/25 21:15 05/18/25 21:15 05/18/25 21:30 Temperature Temperature Source Pulse Rate 94 90 Respiratory Rate 30 H 26 H Respiratory Effort Blood Pressure 138/77 H 138/77 H 138/74 H Blood Pressure Mean 95 95 92 Pulse Ox 88 89 Oxygen Delivery Method Oxygen Flow Rate (L/min) 05/18/25 21:31 05/18/25 21:31 05/18/25 21:45 Temperature Temperature Source Pulse Rate 88 Respiratory Rate 30 H 25 H Respiratory Effort Blood Pressure 138/81 H Blood Pressure Mean 97 Pulse Ox 87 91 94 Oxygen Delivery Method Room Air Nasal Cannula Oxygen Flow Rate (L/min) 2 05/18/25 21:46 05/18/25 22:00 05/18/25 22:00 Temperature 99.4 F H Temperature Source Oral Pulse Rate 97 92 Respiratory Rate 28 H 28 H Respiratory Effort Blood Pressure 138/81 H 125/76 H Blood Pressure Mean 100 91 Pulse Ox 93 95 Oxygen Delivery Method Nasal Cannula Nasal Cannula Oxygen Flow Rate (L/min) 2 2 05/18/25 22:15 05/18/25 22:30 05/18/25 22:34 Temperature Temperature Source Pulse Rate 90 90 100 Respiratory Rate 23 H 21 H 22 H Respiratory Effort Blood Pressure 140/82 H Blood Pressure Mean 100 Pulse Ox 91 Oxygen Delivery Method Oxygen Flow Rate (L/min) 05/18/25 22:45 05/18/25 22:50 05/18/25 23:00 Temperature Temperature Source Pulse Rate 92 91 93 Respiratory Rate 21 H 27 H 32 H Respiratory Effort Blood Pressure 149/76 H 130/81 H Blood Pressure Mean 91 97 Pulse Ox 94 95 94 Oxygen Delivery Method Oxygen Flow Rate (L/min) 05/18/25 23:00 05/18/25 23:54 05/19/25 00:00 Temperature 98.9 F 98.8 F 98.9 F Temperature Source Oral Oral Pulse Rate 92 91 91 Respiratory Rate 27 H 26 H 27 H Respiratory Effort Blood Pressure 130/81 H 120/66 128/77 H Blood Pressure Mean 97 84 94 Pulse Ox 93 93 93 Oxygen Delivery Method Nasal Cannula Nasal Cannula Oxygen Flow Rate (L/min) 3 2 Positive well nourished and well developed Constitutional Narrative: Patient is tachypneic in respiratory distress with use of accessory muscles General Appearance ED: well developed; Negative for cyanotic, diaphoretic, NAD or pallor HEENT Reports TM's clear and moist mucous membranes Negative for trauma or tenderness Tympanic Membrane ED: Yes TM's clear Eyes PERRL and EOMs intact bilaterally General Eye ED: Negative for pale conjunctiva or scleral icterus Neck no lymphadenopathy, supple and no JVD Chest Wall inspection of chest normal and palpation of chest normal Resp No normal respiratory effort and No clear to auscultation bilaterally Resp Narrative: There is use of accessory muscles. Patient is tachypneic. Effort and Inspection: Negative for retractions Auscultation: wheezes expiratory wheezes and throughout (Patient has significantly decreased air movement.) Cardio regular rate, regular rhythm, S1 normal heart sound, S2 normal heart sound and no murmurs GI normal to inspection, nondistended, normoactive bowel sounds and non-tender Back/Spine no CVA tenderness Extremity normal to inspection Neuro oriented x3 and CN's II-XII intact bilaterally Sensorium / Orientation: alert Psych mental status grossly normal Skin no rashes or lesions noted, no wounds and skin turgor normal General Skin Exam: Negative for jaundice or pallor MDM MDM MDM Narrative Medical decision making narrative: patient's pulse ox was 87% on room air. He is presently on 2 L and saturating 93%. ABG was obtained to assess acid-base status and more importantly CO2. Chest x-ray to assess for pneumonia, pneumothorax. History is not consistent with heart failure. Will obtain CBC to assess white count and H&H. Basic metabolic panel to assess renal function and electrolytes. Records from April 20 were reviewed. Patient was treated with burst of prednisone and azithromycin. Lab Data Attestation: I reviewed the patient's lab results. Lab results narrative: CBC is unremarkable. Basic metabolic panel is unremarkable. Glucose is 117 with normal CO2 anion gap. Labs: Laboratory Results - last 24 hr 05/18/25 21:07 WBC 7.8 RBC 4.62 Hgb 14.9 Hct 44.4 MCV 96.1 H MCH 32.3 H MCHC 33.6 RDW Std Deviation 48.1 H RDW Coeff of Monica 13.7 Plt Count 296 MPV 9.2 Immature Gran % (Auto) 0.400 Neut % (Auto) 59.0 Lymph % (Auto) 21.6 Ellis % (Auto) 8.3 Eos % (Auto) 9.8 H Baso % (Auto) 0.9 Absolute Neuts (auto) 4.6 Absolute Lymphs (auto) 1.69 Nucleated RBC % 0 Sodium 138 Potassium 4.2 Chloride 100 Carbon Dioxide 28.3 Anion Gap 9 BUN 8 Creatinine 0.99 Estim Creat Clear Calc 75.89 Est GFR (MDRD) Non-Af 84 BUN/Creatinine Ratio 8.5 L Glucose 117 H Calcium 9.0 ABG Data Attestation: I personally reviewed and interpreted this ABG as follows: Interpretation: ABG reveals increased AA gradient. pCO2 is slightly elevated at 53. This is presumed to be chronic since his pH is normal at 7.38. His saturation correlates with the pulse oximeter. ABG results: ABG 05/18/25 22:36 Specimen Type ART Sample Site R Radial pH 7.38 Bicarbonate Actual 31.2 H Total CO2 33 Base Excess 6 H O2 Saturation 92 L O2 % 2.0 ABG pCO2 53.0 H ABG pO2 66 L Test Positive O2 Delivery Device Cannula Vent Mode Not entered Radiography Chest X-Ray - ED: 1 View and Read by ED Physician (Single view chest x-ray with is slightly limited due to inspiration. There is no infiltrate, effusion or cephalization. Cardiac silhouette and size reveal slight enlargement of the heart otherwise unremarkable. Osseous structures unremarkable. Hilum is unremarkable. There is no acute pathology ) Diagnostic Testing: Clinical Impression(s) from Imaging Studies Chest X-Ray 05/18/25 21:20 IMPRESSION: No acute abnormality Reading Location: [facility] Management Discussion w/another healthcare provider: Hospitalist (Case was discussed with Dr. Schuster. Full admit PCU for exacerbated COPD, acute and chronic hypoxemia and hypercapnia respiratory failure) Treatment and Re-Evaluation :: And spite of Solu-Medrol multiple aerosol treatment he is still wheezing and has diminished breath sounds. He is still requiring oxygen. In light of this we will contact hospitalist for admission. Critical Care Time Critical Care Time: Yes Critical care time (excluding procedures): 30-74 minutes (22), Including time spent: (History, physical, documentation, independent of additional laboratory results, chest x-ray, review of prior records, treatment for respiratory failure), Discussing w/Patient &/or Family/Die Inspector, Discussing w/Consultants and Arranging Admission or Transfer Discharge Plan Triage Chief Complaint: Shortness of Breath ED Provider: Jose Daniel Roe Dx/Rx/DC Orders Clinical Impression: Acute hypoxic on chronic hypercapnic respiratory failure, COPD (chronic obstructive pulmonary disease), Tobacco use, Acute respiratory distress Prescriptions: No Action diphenhydramine HCl [Allergy] 25 mg tablet 50 mg PO BID PRN losartan [Cozaar] 50 mg tablet 50 mg PO DAILY albuterol sulfate 90 mcg/actuation aerosol powdr breath activated 2 inh inhalation Q4H PRN (Reason: SHORTNESS OF BREATH ) Qty: 1 0RF amlodipine 5 mg Tablet 5 mg PO DAILY guaifenesin [Mucus Relief ER] 1,200 mg Tablet Extended Release 12hr 1,200 mg PO BID Qty: 20 0RF [facility] [Primary Care Provider] - Print Language: Azerbaijani Disposition Disposition: Acute Care Hospital [facility]
[2025-05-19] VITALS (8 sets, daily range): BP systolic 128–158; BP diastolic 69–83; PULSE 90–95; RESP 18–27; TEMP 36.2–37.2; O2SAT 91–95; BMI 32.2; BMI 33.4
--- NOTE | 2025-05-19 00:01 | HP.PCM.HOS_ITS ---
[facility] - General General Date of Admission: 05/19/25 Date of Service: 05/19/25 Chief Complaint: SOB and Wheezing. HPI Narrative MELCHOR LATIF, is a 64 M with a past medical history of essential hypertension; on amlodipine and losartan, obesity (class I); BMI of 33.2 this admission, former tobacco abuse (quit ~1 month ago); with subsequent COPD, history of renal calculi, seasonal allergies, OA and recent admission here from April 20, 2025 to April 22, 2025 for treatment of acute exacerbation of COPD with subsequent discharge on steroid taper and azithromycin who re-presents to [facility] ER once again complaining of shortness of breath and wheezing. Mr. Latif reports his acute symptoms began ~2 days ago with a gradual-onset of dyspnea on exertion that progressed to shortness of breath at rest. He also admits to nonproductive cough with persistent wheezing that is severe causing him to use his accessory muscles. He admits to associated mild nasal congestion but he denies fever, chills, sore throat, ear pain, abdominal pain, nausea, vomiting, diarrhea, constipation, chest pain, palpitations, heart racing, lower extremity edema, dysuria, hematuria, headache or rash. In the ER he was diagnosed with clinical evidence of AE COPD with Acute Respiratory Insufficiency with CXR that revealed no acute abnormality and ABG that revealed pH 7.38/ pCO2 53 mmHg/ pO2 66 mmHg/ HCO3 31.2 mmol/L at 92% on 2L NC and he was then admitted to the PCU for ongoing care for stated is expected to extend beyond 2 midnights. [facility] Medical History Kidney stones Smoker Hypertension Home Medications ?Medication ?Instructions ?Recorded ?Last Taken ?Type diphenhydramine HCl 25 mg tablet 50 mg PO BID PRN THUY RGIES 05/11/23 04/19/25 History (Allergy) losartan 50 mg tablet (Cozaar) 50 mg PO DAILY BLOOD VT ESSURE 05/11/23 04/19/25 History albuterol sulfate 90 mcg/actuation 2 inh inhalation Q4 H PRN SHORTNESS 05/13/23 04/19/25 Rx breath activated powder inhaler OF BREATH #1 ea amlodipine 5 mg tablet 5 mg PO DAILY BLOOD PRESSURE 05/27/24 04/19/25 History guaifenesin 1,200 mg tablet, 1,200 mg PO BID cough #20 tabs 04/22/25 Unknown Rx extended release 12 hr (Mucus Relief ER) Allergy/AdvReac Type Severity Reaction Status Date / Time poison dennis extract Allergy Intermediate Rash Verified 05/18/25 20:49 Social History number of children: 0 Smoking Status: Current every day smoker tobacco type: pipe ROS ROS Narrative Review of Systems: Constitutional: Patient denies fever or chills. Eyes: Patient denies changes in vision or discharge from eyes. ENT: Patient admits to stuffy nose but he denies runny nose, sore throat or ear pain. Resp: Patient admits to severe shortness of breath causing him to use accessory muscles with tachypnea. CV: Patient denies chest pain, palpitations, heart racing or lower extremity edema. GI: Patient denies abdominal pain, nausea, vomiting, diarrhea or constipation. : Patient denies dysuria, hematuria or urinary frequency. MSK: Patient denies arthralgias or arthralgias. Skin: Patient denies rash, abscess, wounds or jaundice. Psych: Patient denies symptoms of uncontrolled depression or anxiety. Neuro: Patient denies headache, paresthesias or focal neurologic deficits. Allergy: Patient denies lip swelling, tongue swelling or urticaria. Hematology: Patient denies easy bleeding or easy bruisability. Endocrinology: Patient denies polyuria, polydipsia, polyphagia or heat/cold intolerance. 14 point ROS otherwise negative except for positives noted above in HPI. Vital Signs Vital Signs Vital Signs: 05/18/25 20:40 05/18/25 20:46 05/18/25 20:47 Temperature 98 F 98 F Temperature Source Oral Oral Pulse Rate 95 92 Respiratory Rate 30 H 30 H Respiratory Effort Short of Breath Labored Blood Pressure 144/78 H 144/78 H Blood Pressure Mean 100 100 Pulse Ox 97 97 Oxygen Delivery Method Nasal Cannula Nasal Cannula Oxygen Flow Rate (L/min) 3 2 05/18/25 20:50 05/18/25 21:00 05/18/25 21:00 Temperature Temperature Source Pulse Rate 97 Respiratory Rate 31 H 30 H Respiratory Effort Blood Pressure Blood Pressure Mean Pulse Ox 97 92 92 Oxygen Delivery Method Room Air Room Air Oxygen Flow Rate (L/min) 05/18/25 21:00 05/18/25 21:06 05/18/25 21:15 Temperature 99.4 F H Temperature Source Oral Pulse Rate 91 Respiratory Rate 29 H Respiratory Effort Blood Pressure 138/80 H 138/77 H Blood Pressure Mean 97 95 Pulse Ox 93 Oxygen Delivery Method Oxygen Flow Rate (L/min) 05/18/25 21:15 05/18/25 21:15 05/18/25 21:30 Temperature Temperature Source Pulse Rate 94 90 Respiratory Rate 30 H 26 H Respiratory Effort Blood Pressure 138/77 H 138/77 H 138/74 H Blood Pressure Mean 95 95 92 Pulse Ox 88 89 Oxygen Delivery Method Oxygen Flow Rate (L/min) 05/18/25 21:31 05/18/25 21:31 05/18/25 21:45 Temperature Temperature Source Pulse Rate 88 Respiratory Rate 30 H 25 H Respiratory Effort Blood Pressure 138/81 H Blood Pressure Mean 97 Pulse Ox 87 91 94 Oxygen Delivery Method Room Air Nasal Cannula Oxygen Flow Rate (L/min) 2 05/18/25 21:46 05/18/25 22:00 05/18/25 22:00 Temperature 99.4 F H Temperature Source Oral Pulse Rate 97 92 Respiratory Rate 28 H 28 H Respiratory Effort Blood Pressure 138/81 H 125/76 H Blood Pressure Mean 100 91 Pulse Ox 93 95 Oxygen Delivery Method Nasal Cannula Nasal Cannula Oxygen Flow Rate (L/min) 2 2 05/18/25 22:15 05/18/25 22:30 05/18/25 22:34 Temperature Temperature Source Pulse Rate 90 90 100 Respiratory Rate 23 H 21 H 22 H Respiratory Effort Blood Pressure 140/82 H Blood Pressure Mean 100 Pulse Ox 91 Oxygen Delivery Method Oxygen Flow Rate (L/min) 05/18/25 22:45 05/18/25 22:50 05/18/25 23:00 Temperature Temperature Source Pulse Rate 92 91 93 Respiratory Rate 21 H 27 H 32 H Respiratory Effort Blood Pressure 149/76 H 130/81 H Blood Pressure Mean 91 97 Pulse Ox 94 95 94 Oxygen Delivery Method Oxygen Flow Rate (L/min) 05/18/25 23:00 05/18/25 23:54 Temperature 98.9 F 98.8 F Temperature Source Oral Pulse Rate 92 91 Respiratory Rate 27 H 26 H Respiratory Effort Blood Pressure 130/81 H 120/66 Blood Pressure Mean 97 84 Pulse Ox 93 93 Oxygen Delivery Method Nasal Cannula Oxygen Flow Rate (L/min) 3 Weight Weight: 199 lb 8.293 oz Body Mass Index (BMI) 33.2 Physical Exam Const alert and oriented x3 Constitutional Narrative: Patient noted to be in respiratory distress with tachypnea and use of accessory muscles. General Appearance: cooperative HEENT normocephalic, head/scalp atraumatic, hearing grossly normal bilaterally and moist oral mucous membranes Eyes PERRL, EOMs intact bilaterally and conjunctivae normal Neck no lymphadenopathy, supple and no JVD Resp Resp Narrative: Tachypnea with use of accessory muscles and wheezing with decreased air movement throughout all lung oliver. Auscultation: wheezes Cardio regular rate and regular rhythm GI normal to inspection, nondistended, normoactive bowel sounds, soft to palpation, non-tender and non-distended Extremity normal to inspection, full ROM and no clubbing, cyanosis or edema Skin Skin Narrative: Patient has evidence of rash, abscess, wounds or jaundice. Neuro oriented x3, CN's II-XII intact bilaterally, moves all extremities and no focal motor deficits Sensorium / Orientation: awake, alert, oriented to person, oriented to place and oriented to time Speech: speech normal Psych Mood & Affect: anxious Results Medical Records Data Attestation: I reviewed the patient's medical records Lab / Micro Data Attestation: I reviewed the patient's lab results. 05/18/25 21:07 05/18/25 21:07 Labs: Laboratory Results - last 24 hr 05/18/25 21:07: WBC 7.8, RBC 4.62, Hgb 14.9, Hct 44.4, MCV 96.1 H, MCH 32.3 H, MCHC 33.6, RDW Std Deviation 48.1 H, RDW Coeff of Monica 13.7, Plt Count 296, MPV 9.2, Immature Gran % (Auto) 0.400, Neut % (Auto) 59.0, Lymph % (Auto) 21.6, O'Brien % (Auto) 8.3, Eos % (Auto) 9.8 H, Baso % (Auto) 0.9, Absolute Neuts (auto) 4.6, Absolute Lymphs (auto) 1.69, Nucleated RBC % 0, Sodium 138, Potassium 4.2, Chloride 100, Carbon Dioxide 28.3, Anion Gap 9, BUN 8, Creatinine 0.99, Estim Creat Clear Calc 75.89, Est GFR (MDRD) Non-Af 84, BUN/Creatinine Ratio 8.5 L, G lucose 117 H, Calcium 9.0 ABG Data ABG results: ABG 05/18/25 22:36 Specimen Type ART Sample Site R Radial pH 7.38 Bicarbonate Actual 31.2 H Total CO2 33 Base Excess 6 H O2 Saturation 92 L O2 % 2.0 ABG pCO2 53.0 H ABG pO2 66 L Test Positive O2 Delivery Device Cannula Vent Mode Not entered Imaging Radiology Impression Chest X-Ray 05/18/25 21:20 IMPRESSION: No acute abnormality Reading Location: [id number] Assessment & Plan Assessment/Plan (1) COPD exacerbation: (2) Tobacco use: (3) Respiratory insufficiency: (4) Obesity (BMI 30.0-34.9): PLAN: Plan 1. AE COPD - Admit to PCU. Continue IV methylprednisolone began in the ER plus add IV doxycycline. Continue guaifenesin twice daily as before. Give ondansetron IV as needed for nausea and vomiting. Give acetaminophen as needed for pain or fever. 2. Acute Respiratory Insufficiency due to #1 - Wean supplemental oxygen as tolerated and check VBG in AM to follow trend. Patient will need likely need to have some form of home oxygen at time of discharge. 3. Obesity (class I); BMI of 33.2 this admission adding to the burden of disease outlined in #1 & #2 - Weight loss will be recommended. Check TSH. This complicates case and may hamper recovery. 4. Recent admission here from April 20, 2025 to April 22, 2025 for treatment of acute exacerbation of COPD with subsequent discharge on steroid taper and azithromycin adding to the medical complexity of #1 - #3 - Noted with unfortunate pattern of serial readmission. 5. Essential hypertension; on amlodipine and losartan - Maintain current regimen. 6. History of renal calculi - Noted with no evidence of recurrence at this time. 7. Seasonal allergies - Noted. Give loratadine daily. 8. OA - Give acetaminophen prn for pain or fever. 9. DVT prophylaxis - Enoxaparin 40 mg sq daily plus SCD's. Total time: Approximately (but not less than) 55 minutes. Charges/Coding Visit Charges Inpatient E&M: 77938 Init Hosp L2
--- OUTSIDE RECORDS SUMMARY | 2025-05-19 00:32 | XMS RPT_ITS | CCD ---
Author Organization [facility] Care Team Providers Care Power Lineman Name Role Phone [facility] [place] Primary Care Provider Dr. Frederick Talley Emergency Provider Dr. Chino Sandoval Admit Provider [phone] Chino Sandoval Attending Provider [phone] Dr. Chino Sandoval Other Provider [phone] Tay Huggins Attending Provider Dr. Linsey Spivey Attending Provider Dr. Linsey Spivey Other Provider [phone] [facility] Primary Care Provider Dr. Oneal Mitchell DO Emergency Provider Dung TERAN, Dr. Cleary Admit Provider Dr. Madiha Razo MD Attending Provider [phone] Madiha Razo MD Other Provider [phone] Dr. Luis Hernandez MD Attending Provider Unavaila Dr. Chino Mac DO Other Provider [facility] Primary Care Provider Dr. Chino Brooks DO Attending Provider Dr. Luis Hernandez MD Other Provider Unavailable Dung, Madiha [facility] [place] [facility] Luis Hernandez Attending Unavailable Madiha Razo Admitting Unavailable Chino Sandoval [facility]ing [facility] Un[facility] Razo, Madiha Admitting Unavailable RazoMadiha Attending Unavailable Razo, Madiha Admitting [facility] Un[facility] Razo, Madiha Consulting Unavailable Razo, Madiha Attending Unavailable Razo, Madiha Admitting [facility] Un[facility] Razo, Madiha Consulting Unavailable Madiha Razo Attending [facility] Un[facility] Razo, Madiha Consulting Unavailable [place], Luis Attending Unavailable Madiha Razo Admitting Unavailable Chino Sandoval Consulting Unavailable Luis Hernandez Consulting Unavailable Chino Sandoval Attending Unavailable Madiha Razo Attending Unavailable Allergies Allergy Classification Reported Allergen(s) Allergy Type Date of Onset Reaction(s) Facility (3 sources) POISON DENNIS EXTRACT Drug Allergy 05-11-2023 Rash [facility] (1 source) poison dennis extract Drug allergy (disorder) 05-27-2024 [facility] Repository Medications Current Medications Medication Drug [...] Profile (BMP )on 04-25-2025 BUN Normal 01-04 [facility] Comment on above: Result Comment: Canc elled via OM: Order cancelled - Patient discharged Performed By: #### L 500.2500, L100.0500 #### [facility] [address] [place], [place], [id number] BUN/CRE Normal 07-07 [facility] Comment on above: Result Comment: Canc elled via OM: Order cancelled - Patient discharged Performed By: #### L 500.2500, L100.0500 #### [facility] [address] [place], [address] Calcium Normal 7.6-11.0 [facility] Comment on above: Result Comment: Canc elled via OM: Order cancelled - Patient discharged Performed By: #### L 500.2500, L100.0500 #### [facility] [address] [place], [address] CL Normal 98-108 [facility] Comment on above: Result Comment: Canc elled via OM: Order cancelled - Patient discharged Performed By: #### L 500.2500, L100.0500 #### [facility] [address] [place], [address] CO2 Normal 21.0-32.0 [facility] Comment on above: Result Comment: Canc elled via OM: Order cancelled - Patient discharged Performed By: #### L 500.2500, L100.0500 #### [facility] [address] [place], [address] CREAT,SERUM Normal 0.70-1.20 [facility] Comment on above: Result Comment: Canc elled via OM: Order cancelled - Patient discharged Performed By: #### L 500.2500, L100.0500 #### [facility] [address] [place], [address] eGFR Normal >60 [facility] Comment on above: Result Comment: Canc elled via OM: Order cancelled - Patient discharged Performed By: #### L 500.2500, L100.0500 #### [facility] [address] [place], [address] GAP Normal 5-15 [facility] Comment on above: Result Comment: Canc elled via OM: Order cancelled - Patient discharged Performed By: #### L 500.2500, L100.0500 #### [facility] [address] [place], [address] GLU Normal 70-99 [facility] Comment on above: Result Comment: Canc elled via OM: Order cancelled - Patient discharged Performed By: #### L 500.2500, L100.0500 #### [facility] [address] [place], [address] Potassium Normal 3.3-5.1 [facility] Comment on above: Result Comment: Canc elled via OM: Order cancelled - Patient discharged Performed By: #### L 500.2500, L100.0500 #### [facility] [address] [place], [address] Basic Metabolic Profile (BMP) Normal 133-145 [facility] Comment on above: Result Comment: Canc elled via OM: Order cancelled - Patient discharged Performed By: #### L 500.2500, L100.0500 #### [facility] [address] [place], [address] CBC-Complete Blood Cnt No Di ffon 04-25-2025 HCT Normal 40-54 [facility] Comment on above: Result Comment: Canc elled via OM: Order cancelled - Patient discharged Performed By: #### L 500.2500, L100.0500 #### [facility] [address] [place], [address] HGB Normal 13.0-16.5 [facility] Comment on above: Result Comment: Canc elled via OM: Order cancelled - Patient discharged Performed By: #### L 500.2500, L100.0500 #### [facility] [address] [place], [address] MCH Normal 27.0-32.0 [facility] Comment on above: Result Comment: Canc elled via OM: Order cancelled - Patient discharged Performed By: #### L 500.2500, L100.0500 #### [facility] [address] [place], [address] MCHC Normal 32-36 [facility] Comment on above: Result Comment: Canc elled via OM: Order cancelled - Patient discharged Performed By: #### L 500.2500, L100.0500 #### [facility] [address] [place], [address] MCV Normal 80-94 [facility] Comment on above: Result Comment: Canc elled via OM: Order cancelled - Patient discharged Performed By: #### L 500.2500, L100.0500 #### [facility] [address] [place], [address] PLT Normal 150-450 [facility] Comment on above: Result Comment: Canc elled via OM: Order cancelled - Patient discharged Performed By: #### L 500.2500, L100.0500 #### [facility] [address] [place], [address] RBC Normal 4.6-6.2 [facility] Comment on above: Result Comment: Canc elled via OM: Order cancelled - Patient discharged Performed By: #### L 500.2500, L100.0500 #### [facility] [address] [place], [address] RDW CV Normal 11.6-14.6 [facility] Comment on above: Result Comment: Canc elled via OM: Order cancelled - Patient discharged Performed By: #### L 500.2500, L100.0500 #### [facility] [address] [place], [address] RDW SD Normal 35.1-43.9 [facility] Comment on above: Result Comment: Canc elled via OM: Order cancelled - Patient discharged Performed By: #### L 500.2500, L100.0500 #### [facility] [address] [place], [address] WBC Normal 4.4-11.0 [facility] Comment on above: Result Comment: Canc elled via OM: Order cancelled - Patient discharged Performed By: #### L 500.2500, L100.0500 #### [facility] [address] [place], [address] Basic Metabolic Profile (BMP )on 04-24-2025 BUN Normal 4-19 [facility] Comment on above: Result Comment: Canc elled via OM: Order cancelled - Patient discharged Performed By: #### L 500.2500, L100.0500 #### [facility] [address] [place], [address] BUN/CRE Normal 10-20 [facility] Comment on above: Result Comment: Canc elled via OM: Order cancelled - Patient discharged Performed By: #### L 500.2500, L100.0500 #### [facility] [address] [place], [address] Calcium Normal 7.6-11.0 [facility] Comment on above: Result Comment: Canc elled via OM: Order cancelled - Patient discharged Performed By: #### L 500.2500, L100.0500 #### [facility] [address] [place], [address] CL Normal 98-108 [facility] Comment on above: Result Comment: Canc elled via OM: Order cancelled - Patient discharged Performed By: #### L 500.2500, L100.0500 #### [facility] [address] [place], [address] CO2 Normal 21.0-32.0 [facility] Comment on above: Result Comment: Canc elled via OM: Order cancelled - Patient discharged Performed By: #### L 500.2500, L100.0500 #### [facility] [address] [place], [address] CREAT,SERUM Normal 0.70-1.20 [facility] Comment on above: Result Comment: Canc elled via OM: Order cancelled - Patient discharged Performed By: #### L 500.2500, L100.0500 #### [facility] [address] [place], [address] eGFR Normal >60 [facility] Comment on above: Result Comment: Canc elled via OM: Order cancelled - Patient discharged Performed By: #### L 500.2500, L100.0500 #### [facility] [address] [place], [address] GAP Normal 5-15 [facility] Comment on above: Result Comment: Canc elled via OM: Order cancelled - Patient discharged Performed By: #### L 500.2500, L100.0500 #### [facility] [address] [place], [address] GLU Normal 70-99 [facility] Comment on above: Result Comment: Canc elled via OM: Order cancelled - Patient discharged Performed By: #### L 500.2500, L100.0500 #### [facility] [address] [place], [address] Potassium Normal 3.3-5.1 [facility] Comment on above: Result Comment: Canc elled via OM: Order cancelled - Patient discharged Performed By: #### L 500.2500, L100.0500 #### [facility] [address] [place], [address] Basic Metabolic Profile (BMP) Normal 133-145 [facility] Comment on above: Result Comment: Canc elled via OM: Order cancelled - Patient discharged Performed By: #### L 500.2500, L100.0500 #### [facility] [address] [place], [address] CBC-Complete Blood Cnt No Di ffon 04-24-2025 HCT Normal 40-54 [facility] Comment on above: Result Comment: Canc elled via OM: Order cancelled - Patient discharged Performed By: #### L 500.2500, L100.0500 #### [facility] [address] [place], [address] HGB Normal 13.0-16.5 [facility] Comment on above: Result Comment: Canc elled via OM: Order cancelled - Patient discharged Performed By: #### L 500.2500, L100.0500 #### [facility] [address] [place], [address] MCH Normal 27.0-32.0 [facility] Comment on above: Result Comment: Canc elled via OM: Order cancelled - Patient discharged Performed By: #### L 500.2500, L100.0500 #### [facility] [address] [place], [address] MCHC Normal 32-36 [facility] Comment on above: Result Comment: Canc elled via OM: Order cancelled - Patient discharged Performed By: #### L 500.2500, L100.0500 #### [facility] [address] [place], [address] MCV Normal 80-94 [facility] Comment on above: Result Comment: Canc elled via OM: Order cancelled - Patient discharged Performed By: #### L 500.2500, L100.0500 #### [facility] [address] [place], [address] PLT Normal 150-450 [facility] Comment on above: Result Comment: Canc elled via OM: Order cancelled - Patient discharged Performed By: #### L 500.2500, L100.0500 #### [facility] [address] [place], [address] RBC Normal 4.6-6.2 [facility] Comment on above: Result Comment: Canc elled via OM: Order cancelled - Patient discharged Performed By: #### L 500.2500, L100.0500 #### [facility] [address] [place], [address] RDW CV Normal 11.6-14.6 [facility] Comment on above: Result Comment: Canc elled via OM: Order cancelled - Patient discharged Performed By: #### L 500.2500, L100.0500 #### [facility] [address] [place], [address] RDW SD Normal 35.1-43.9 [facility] Comment on above: Result Comment: Canc elled via OM: Order cancelled - Patient discharged Performed By: #### L 500.2500, L100.0500 #### [facility] [address] [place], [address] WBC Normal 4.4-11.0 [facility] Comment on above: Result Comment: Canc elled via OM: Order cancelled - Patient discharged Performed By: #### L 500.2500, L100.0500 #### [facility] [address] [place], [address] CBC-Complete Blood Cnt No Di ffon 04-23-2025 HCT Normal 40-54 [facility] Comment on above: Result Comment: Canc elled via OM: Order cancelled - Patient discharged Performed By: #### L 100.0500 #### [facility] [address] [place], [address] HGB Normal 13.0-16.5 [facility] Comment on above: Result Comment: Canc elled via OM: Order cancelled - Patient discharged Performed By: #### L 100.0500 #### [facility] [address] [place], [address] MCH Normal 27.0-32.0 [facility] Comment on above: Result Comment: Canc elled via OM: Order cancelled - Patient discharged Performed By: #### L 100.0500 #### [facility] [address] [place], [address] MCHC Normal 32-36 [facility] Comment on above: Result Comment: Canc elled via OM: Order cancelled - Patient discharged Performed By: #### L 100.0500 #### [facility] [address] [place], [address] MCV Normal 80-94 [facility] Comment on above: Result Comment: Canc elled via OM: Order cancelled - Patient discharged Performed By: #### L 100.0500 #### [facility] [address] [place], [address] PLT Normal 150-450 [facility] Comment on above: Result Comment: Canc elled via OM: Order cancelled - Patient discharged Performed By: #### L 100.0500 #### [facility] [address] [place], [address] RBC Normal 4.6-6.2 [facility] Comment on above: Result Comment: Canc elled via OM: Order cancelled - Patient discharged Performed By: #### L 100.0500 #### [facility] [address] [place], [address] RDW CV Normal 11.6-14.6 [facility] Comment on above: Result Comment: Canc elled via OM: Order cancelled - Patient discharged Performed By: #### L 100.0500 #### [facility] [address] [place], [address] RDW SD Normal 35.1-43.9 [facility] Comment on above: Result Comment: Canc elled via OM: Order cancelled - Patient discharged Performed By: #### L 100.0500 #### [facility] [address] [place], [address] WBC Normal 4.4-11.0 [facility] Comment on above: Result Comment: Canc elled via OM: Order cancelled - Patient discharged Performed By: #### L 100.0500 #### [facility] [address] [place], [address] Respiratory Cultureon 2024 RESPC List Antibiotics Last 48 Hours? see mar Mixed normal respiratory calixto. No Streptococcus pneumoniae, beta-hemolytic Streptococcus or Staphylococcus aureus isolated. Normal [facility] Comment on above: Performed By: #### L 500.2500, L100.0100 #### [facility] [address] [place], [address] Absolute lymphocyte countOrd ered By: Madiha Razo on 04-21-2025 Lymphocytes Auto (Unsp spec) [#/Vol] 0.91 10*3/uL 0.83-4.51 [facility] Absolute neutrophil countOrd ered By: Madiha Razo on 04-21-2025 Neutrophils (Bld) [#/Vol] 13.0 10*3/uL High 2.0-7.7 [facility] Anion gap in Serum or Plasma Ordered By: Madiha Razo on 04-21-2025 Anion gap [Moles/Vol] 15 mmol/L 5-15 [facility] Automated lymphocyte count a s percentage of total leukocytesOrdered By: Madiha Razo on 04-21-2025 Lymphocytes/100 WBC Auto (Unsp spec) 6.4 % Low 19-41 [facility] BUN/creatinine ratioOrdered By: Madiha Razo on 04-21-2025 Urea nitrogen/Creatinine [Mass ratio] 24.6 mg/mg High 10-20 [facility] Basic Metabolic Profile (BMP )on 04-21-2025 BUN/CRE 24.6 RATIO High 10-20 [facility] Comment on above: Performed By: #### L 500.2500, L100.0100 #### [facility] [address] [place], [address] Calcium [Mass/Vol] 9.1 mg/dL Normal 7.6-11.0 [facility] Comment on above: Performed By: #### L 500.2500, L100.0100 #### [facility] [address] [place], [address] Chloride [Moles/Vol] 97 mmol/L Low 98-108 [facility] Comment on above: Performed By: #### L 500.2500, L100.0100 #### [facility] [address] [place], [address] CO2 [Moles/Vol] 21.4 mmol/L Normal 21.0-32.0 [facility] Comment on above: Performed By: #### L 500.2500, L100.0100 #### [facility] [address] [place], [address] Creatinine [Mass/Vol] 1.02 mg/dL Normal 0.70-1.20 [facility] Comment on above: Performed By: #### L 500.2500, L100.0100 #### [facility] [address] [place], [address] ECRCL 71.72 ml/min Normal 50-250 [facility] Comment on above: Performed By: #### L 500.2500, L100.0100 #### [facility] [address] [place], [address] GAP 15 Normal 5-15 [facility] Comment on above: Performed By: #### L 500.2500, L100.0100 #### [facility] [address] [place], [address] GFR/1.73 sq M.predicted among non-blacks MDRD (S/P/Bld) [Vol rate/Area] 81 mL/min/{1.73_m2} Normal >60 [facility] Comment on above: Result Comment: mL/m in/1.73m2 CKD-EPI Creatinine Equation (2020) Performed By: #### L 500.2500, L100.0100 #### [facility] [address] [place], [address] Glucose [Mass/Vol] 174 mg/dL High 70-99 [facility] Comment on above: Performed By: #### L 500.2500, L100.0100 #### [facility] [address] [place], [address] Potassium [Moles/Vol] 4.2 mmol/L Normal 3.3-5.1 [facility] Comment on above: Performed By: #### L 500.2500, L100.0100 #### [facility] [address] [place], [address] Sodium [Moles/Vol] 133 mmol/L Normal 133-145 [facility] Comment on above: Performed By: #### L 500.2500, L100.0100 #### [facility] [address] [place], [address] Urea nitrogen [Mass/Vol] 25 mg/dL High 4-19 [facility] Comment on above: Performed By: #### L 500.2500, L100.0100 #### [facility] [address] [place], [address] Basophil percentageOrdered B y: Madiha Razo on 04-21-2025 Basophils/100 WBC (Bld) 0.1 % 0-1 [facility] CBC W/Diff, Automatedon Absolute Lymph 0.91 X10 3/uL Normal 0.83-4.51 [facility] Comment on above: Performed By: #### L 500.2500, L100.0100 #### [facility] [address] [place], [address] Absolute Neut 13.0 X10 3/uL High 2.0-7.7 [facility] Comment on above: Performed By: #### L 500.2500, L100.0100 #### [facility] [address] [place], [address] Basophils/100 WBC (Bld) 0.1 % Normal 0-1 [facility] Comment on above: Performed By: #### L 500.2500, L100.0100 #### [facility] [address] [place], [address] Eosinophils/100 WBC (Bld) 0.1 % Normal 0-5 [facility] Comment on above: Performed By: #### L 500.2500, L100.0100 #### [facility] [address] [place], [address] Erythrocyte distribution width (RBC) [Ratio] 13.0 % Normal 11.6-14.6 [facility] Comment on above: Performed By: #### L 500.2500, L100.0100 #### [facility] [address] [place], [address] Hematocrit (Bld) [Volume fraction] 43.5 % Normal 40-54 [facility] Comment on above: Performed By: #### L 500.2500, L100.0100 #### [facility] Laboratory [address] [place], [address] Hemoglobin (Bld) [Mass/Vol] 14.7 g/dL Normal 13.0-16.5 [facility] Comment on above: Performed By: #### L 500.2500, L100.0100 #### [facility] [address] [place], [address] IG% 0.600 Normal 0.0-0.9 [facility] Comment on above: Result Comment: IG% - Immature Granulocytes (promyelocytes, myelocytes and metamyelocytes) > 1% indicates that a LEFT SHIFT is Present. Performed By: #### L 500.2500, L100.0100 #### [facility] [address] [place], [address] Lymphocytes/100 WBC (Bld) 6.4 % Low 19-41 [facility] Comment on above: Performed By: #### L 500.2500, L100.0100 #### [facility] [address] [place], [address] MCH (RBC) [Entitic mass] 32.2 pg High 27.0-32.0 [facility] Comment on above: Performed By: #### L 500.2500, L100.0100 #### [facility] [address] [place], [address] MCHC (RBC) [Mass/Vol] 33.8 g/dL Normal 32-36 [facility] Comment on above: Performed By: #### L 500.2500, L100.0100 #### [facility] [address] [place], [address] MCV (RBC) [Entitic vol] 95.2 fL High 80-94 [facility] Comment on above: Performed By: #### L 500.2500, L100.0100 #### [facility] [address] [place], [address] Monocytes/100 WBC (Bld) 2.0 % Normal 0-10 [facility] Comment on above: Performed By: #### L 500.2500, L100.0100 #### [facility] [address] [place], [address] Neutrophils/100 WBC (Bld) 90.8 % High 47-70 [facility] Comment on above: Performed By: #### L 500.2500, L100.0100 #### [facility] [address] [place], [address] Nucleated RBC (Bld) [#/Vol] 0 10*3/uL Normal 0-5 [facility] Comment on above: Performed By: #### L 500.2500, L100.0100 #### [facility] [address] [place], [address] Platelet mean volume (Bld) [Entitic vol] 9.7 fL Normal 6.2-12.0 [facility] Comment on above: Performed By: #### L 500.2500, L100.0100 #### [facility] [address] [place], [address] Platelets (Bld) [#/Vol] 373 10*3/uL Normal 150-450 [facility] Comment on above: Performed By: #### L 500.2500, L100.0100 #### [facility] [address] [place], [address] RBC (Bld) [#/Vol] 4.57 10*6/uL Low 4.6-6.2 [facility] Comment on above: Performed By: #### L 500.2500, L100.0100 #### [facility] [address] [place], [address] RDW SD 45.0 fl High 35.1-43.9 [facility] Comment on above: Performed By: #### L 500.2500, L100.0100 #### [facility] [address] [place], [address] WBC (Bld) [#/Vol] 14.3 10*3/uL High 4.4-11.0 [facility] Comment on above: Performed By: #### L 500.2500, L100.0100 #### [facility] [address] [place], [address] Carbon dioxide, total [Moles /volume] in Central venous bloodOrdered By: Madiha Razo on 04-21-2025 CO2 [Moles/Vol] 21.4 mmol/L 21.0-32.0 [facility] Chloride assayOrdered By: Jey Razo on 04-21-2025 Chloride [Moles/Vol] 97 mmol/L Low 98-108 [facility] Electrocardiogram reportOrde red By: Vance Gomez on 04-21-2025 EKG study [facility] Cardiovascular Services [address] [place] [address] 12 Lead EKG 04/20/25 1233 MR#: [id number] Acct: [id number] Name: MELCHOR LYLE Rep #:[id number] : 1960 64 From: Vance Gomez MD Attending Dr: Dr. Chino Sandoval DO Status: ADM IN Ordering Dr: Minal Castro Date: 04/20/25 Location: [facility] Sex: M C Admitted: 04/20/25 Test Reason : SOB Blood Pressure : */* mmHG Vent. Rate : 104 BPM Atrial Rate : 104 BPM P-R Int : 150 ms QRS Dur : 80 ms QT Int : 328 ms P-R-T Axes : 10 28 40 degrees QTcB Int : 431 ms Sinus tachycardia Otherwise normal ECG Confirmed by NADINE TERAN, VANCE ([id number]), senior editor ESTER OROZCO ([id number]) on 04/21/2025 9:46:39 AM Referred By: Confirmed By: VANCE GOMEZ MD 04/21/25 0946 Date _ Vance Gomez MD CC: Dr. Chino Sandoval DO; JEY Sheppard; [facility] ~ Signed [facility] Other Eosinophil percentageOrdered By: Madiha Razo on 04-21-2025 Eosinophils/100 WBC (Bld) 0.1 % 0-5 [facility] Erythrocyte distribution wid th ratioOrdered By: Madiha Razo on 04-21-2025 Erythrocyte distribution width (RBC) [Ratio] 13.0 % 11.6-14.6 [facility] Erythrocyte distribution wid th standard deviationOrdered By: Madiha Razo on 04-21-2025 Erythrocyte distribution width (RBC) [Ratio] 45.0 fl High 35.1-43.9 [facility] Glomerular filtration rate ( GFR) estimation/1.73 sq m using serum, plasma, or whole bOrdered By: Madiha Razo on 04-21-2025 GFR/1.73 sq M.predicted among non-blacks MDRD (S/P/Bld) [Vol rate/Area] 81 mL/min/{1.73_m2} >60 [facility] Comment on above: mL/min/1.73m2 CKD-EP I Creatinine Equation (2020) Gram Stainon 04-21-2025 GS List Antibiotics Last 48 Hours? see mar Acceptable Specimen? Yes (<25 Epithelial cells per/lpf) Gram Stain 1+ White Blood Cells 1+ Epithelial cells Rare Gram positive cocci Rare Gram positive rods Normal [facility] Comment on above: Performed By: #### L 500.2500, L100.0100 #### [facility] [address] [place], [address] Hematocrit Auto (Bld) [Volum e fraction]Ordered By: Madiha Razo on 04-21-2025 Hematocrit (Bld) [Volume fraction] 43.5 % 40-54 [facility] Hemoglobin measurementOrdere d By: Madiha Razo on 04-21-2025 Hemoglobin (Bld) [Mass/Vol] 14.7 g/dL 13.0-16.5 [facility] Immature granulocytes/100 WB C Auto (Bld)Ordered By: Madiha Razo on 04-21-2025 Immature granulocytes/100 WBC (Bld) 0.600 % 0.0-0.9 [facility] Comment on above: IG% - Immature Granu locytes (promyelocytes, myelocytes and metamyelocytes) > 1% indicates that a LEFT SHIFT is Present. MCV (mean corpuscular volume ) determinationOrdered By: Madiha Razo on 04-21-2025 MCV (RBC) [Entitic vol] 95.2 fL High 80-94 [facility] Mean corpuscular hemoglobin (MCH) determinationOrdered By: Madiha Razo on 04-21-2025 MCH (RBC) [Entitic mass] 32.2 pg High 27.0-32.0 [facility] Mean corpuscular hemoglobin concentration (MCHC) determinationOrdered By: Madiha Razo on 04-21-2025 MCHC (RBC) [Mass/Vol] 33.8 g/dL 32-36 [facility] Mean platelet volume determi nationOrdered By: Madiha Razo on 04-21-2025 Platelet mean volume (Bld) [Entitic vol] 9.7 fL 6.2-12.0 [facility] Monocyte percentageOrdered B y: Madiha Razo on 04-21-2025 Monocytes/100 WBC (Bld) 2.0 % 0-10 [facility] Neutrophil percentageOrdered By: Madiha Razo on 04-21-2025 Neutrophils/100 WBC (Bld) 90.8 % High 47-70 [facility] Nucleated red blood cell per centageOrdered By: Madiha Razo on 04-21-2025 Nucleated RBC/100 WBC (Bld) [Ratio] 0 % 0-5 [facility] Platelet countOrdered By: Jey Razo on 04-21-2025 Platelets (Bld) [#/Vol] 373 10*3/uL 150-450 [facility] Potassium measurement (mass/ volume)Ordered By: Madiha Razo on 04-21-2025 Potassium (Unsp spec) [Mass/Vol] 4.2 mmol/L 3.3-5.1 [facility] RBC Auto (Bld) [#/Vol]Ordere d By: Madiha Razo on 04-21-2025 RBC (Bld) [#/Vol] 4.57 10*6/uL Low 4.6-6.2 [facility] Serum creatinine measurement (mass/volume)Ordered By: Madiha Razo on 04-21-2025 Creatinine [Mass/Vol] 1.02 mg/dL 0.70-1.20 [facility] Serum glucose measurement (m ass/volume)Ordered By: Madiha Razo on 04-21-2025 Glucose [Mass/Vol] 174 mg/dL High 70-99 [facility] Serum or plasma calcium doni urement (mass/volume)Ordered By: Madiha Razo on 04-21-2025 Calcium [Mass/Vol] 9.1 mg/dL 7.6-11.0 [facility] Serum or plasma urea nitroge n measurement (mass/volume)Ordered By: Madiha Razo on 04-21-2025 Urea nitrogen [Mass/Vol] 25 mg/dL High 4-19 [facility] Sodium levelOrdered By: Cory Razo on 04-21-2025 Sodium [Moles/Vol] 133 mmol/L 133-145 [facility] White blood cell (WBC) count Ordered By: Madiha Razo on 04-21-2025 WBC (Bld) [#/Vol] 14.3 10*3/uL High 4.4-11.0 [facility] 12 Lead EKGon 04-20-2025 12 Lead EKG [facility] Cardiovascular Services [address] [place] [address] 12 Lead EKG 04/20/25 1233 MR#: [id number] Acct: [id number] Name: MELCHOR LYLE Rep #: [id number] : 1960 64 From: Vance Gomez MD Attending Dr: Dr. Chino Sandoval DO Status : ADM IN Ordering Dr: Minal Castro Date: 04/20/25 Location: [facility] Sex: M C Admitted: 04/20/25 Test Reason : SOB Blood Pressure : */* mmHG Vent. Rate : 104 BPM Atrial Rate : 104 BPM P-R Int : 150 ms QRS Dur : 80 ms QT Int : 328 ms P-R-T Axes : 10 28 40 degrees QTcB Int : 431 ms Sinus tachycardia Otherwise normal ECG Confirmed by VANCE GOMEZ MD ([id number]), senior editor ESTER OROZCO ([id number]) on 04/21/2025 9:46:39 AM Referred By: Confirmed By: VANCE GOMEZ MD 04/21/25 0946 Date Vance Gomez MD CC: Dr. Chino Sandoval DO; JEY Sheppard; [facility] Signed Normal [facility] Absolute lymphocyte countOrd ered By: Minal Castro on 04-20-2025 Lymphocytes Auto (Unsp spec) [#/Vol] 1.24 10*3/uL 0.83-4.51 [facility] Absolute neutrophil countOrd ered By: Minal Castro on 04-20-2025 Neutrophils (Bld) [#/Vol] 10.9 10*3/uL High 2.0-7.7 [facility] Anion gap in Serum or Plasma Ordered By: Minal Castro on 04-20-2025 Anion gap [Moles/Vol] 15 mmol/L 5-15 [facility] Automated lymphocyte count a s percentage of total leukocytesOrdered By: Minal Castro on 04-20-2025 Lymphocytes/100 WBC Auto (Unsp spec) 9.1 % Low 19-41 [facility] BUN/creatinine ratioOrdered By: Minal Castro on 04-20-2025 Urea nitrogen/Creatinine [Mass ratio] 15.2 mg/mg 10-20 [facility] Basic Metabolic Profile (BMP )on 04-20-2025 BUN/CRE 15.2 RATIO Normal 10-20 [facility] Comment on above: Performed By: #### L 100.0100, L500.2500, L501.4021 #### [facility] Laboratory [address] [place], [address] Calcium [Mass/Vol] 9.3 mg/dL Normal 7.6-11.0 [facility] Comment on above: Performed By: #### L 100.0100, L500.2500, L501.4021 #### [facility] [address] [place], [address] Chloride [Moles/Vol] 95 mmol/L Low 98-108 [facility] Comment on above: Performed By: #### L 100.0100, L500.2500, L501.4021 #### [facility] [address] [place], [address] CO2 [Moles/Vol] 22.7 mmol/L Normal 21.0-32.0 [facility] Comment on above: Performed By: #### L 100.0100, L500.2500, L501.4021 #### [facility] [address] [place], [address] Creatinine [Mass/Vol] 1.01 mg/dL Normal 0.70-1.20 [facility] Comment on above: Performed By: #### L 100.0100, L500.2500, L501.4021 #### [facility] [address] [place], [address] ECRCL 74.63 ml/min Normal 50-250 [facility] Comment on above: Performed By: #### L 100.0100, L500.2500, L501.4021 #### [facility] [address] [place], [address] GAP 15 Normal 5-15 [facility] Comment on above: Performed By: #### L 100.0100, L500.2500, L501.4021 #### [facility] [address] [place], [address] GFR/1.73 sq M.predicted among non-blacks MDRD (S/P/Bld) [Vol rate/Area] 82 mL/min/{1.73_m2} Normal >60 [facility] Comment on above: Result Comment: mL/m in/1.73m2 CKD-EPI Creatinine Equation (2020) Performed By: #### L 100.0100, L500.2500, L501.4021 #### [facility] [address] [place], [address] Glucose [Mass/Vol] 116 mg/dL High 70-99 [facility] Comment on above: Performed By: #### L 100.0100, L500.2500, L501.4021 #### [facility] [address] [place], [address] Potassium [Moles/Vol] 4.4 mmol/L Normal 3.3-5.1 [facility] Comment on above: Performed By: #### L 100.0100, L500.2500, L501.4021 #### [facility] [address] [place], [address] Sodium [Moles/Vol] 133 mmol/L Normal 133-145 [facility] Comment on above: Performed By: #### L 100.0100, L500.2500, L501.4021 #### [facility] [address] [place], [address] Urea nitrogen [Mass/Vol] 15 mg/dL Normal 4-19 [facility] Comment on above: Performed By: #### L 100.0100, L500.2500, L501.4021 #### [facility] [address] [place], [address] Basophil percentageOrdered B y: Minal Castro on 04-20-2025 Basophils/100 WBC (Bld) 0.7 % 0-1 [facility] CBC W/Diff, Automatedon -2024 Absolute Lymph 1.24 X10 3/uL Normal 0.83-4.51 [facility] Comment on above: Performed By: #### L 100.0100, L500.2500, L501.4021 #### [facility] [address] [place], [address] Absolute Neut 10.9 X10 3/uL High 2.0-7.7 [facility] Comment on above: Performed By: #### L 100.0100, L500.2500, L501.4021 #### [facility] [address] [place], [address] Basophils/100 WBC (Bld) 0.7 % Normal 0-1 [facility] Comment on above: Performed By: #### L 100.0100, L500.2500, L501.4021 #### [facility] [address] [place], [address] Eosinophils/100 WBC (Bld) 2.3 % Normal 0-5 [facility] Comment on above: Performed By: #### L 100.0100, L500.2500, L501.4021 #### [facility] [address] [place], [address] Erythrocyte distribution width (RBC) [Ratio] 13.1 % Normal 11.6-14.6 [facility] Comment on above: Performed By: #### L 100.0100, L500.2500, L501.4021 #### [facility] [address] [place], [address] Hematocrit (Bld) [Volume fraction] 46.4 % Normal 40-54 [facility] Comment on above: Performed By: #### L 100.0100, L500.2500, L501.4021 #### [facility] [address] [place], [address] Hemoglobin (Bld) [Mass/Vol] 15.9 g/dL Normal 13.0-16.5 [facility] Comment on above: Performed By: #### L 100.0100, L500.2500, L501.4021 #### [facility] [address] [place], [address] IG% 0.400 Normal 0.0-0.9 [facility] Comment on above: Result Comment: IG% - Immature Granulocytes (promyelocytes, myelocytes and metamyelocytes) > 1% indicates that a LEFT SHIFT is Present. Performed By: #### L 100.0100, L500.2500, L501.4021 #### [facility] [address] [place], [address] Lymphocytes/100 WBC (Bld) 9.1 % Low 19-41 [facility] Comment on above: Performed By: #### L 100.0100, L500.2500, L501.4021 #### [facility] [address] [place], [address] MCH (RBC) [Entitic mass] 32.3 pg High 27.0-32.0 [facility] Comment on above: Performed By: #### L 100.0100, L500.2500, L501.4021 #### [facility] [address] [place], [address] MCHC (RBC) [Mass/Vol] 34.3 g/dL Normal 32-36 [facility] Comment on above: Performed By: #### L 100.0100, L500.2500, L501.4021 #### [facility] [address] [place], [address] MCV (RBC) [Entitic vol] 94.1 fL High 80-94 [facility] Comment on above: Performed By: #### L 100.0100, L500.2500, L501.4021 #### [facility] [address] [place], [address] Monocytes/100 WBC (Bld) 7.4 % Normal 0-10 [facility] Comment on above: Performed By: #### L 100.0100, L500.2500, L501.4021 #### [facility] [address] [place], [address] Neutrophils/100 WBC (Bld) 80.1 % High 47-70 [facility] Comment on above: Performed By: #### L 100.0100, L500.2500, L501.4021 #### [facility] [address] [place], [address] Nucleated RBC (Bld) [#/Vol] 0 10*3/uL Normal 0-5 [facility] Comment on above: Performed By: #### L 100.0100, L500.2500, L501.4021 #### [facility] [address] [place], [address] Platelet mean volume (Bld) [Entitic vol] 9.3 fL Normal 6.2-12.0 [facility] Comment on above: Performed By: #### L 100.0100, L500.2500, L501.4021 #### [facility] [address] [place], [address] Platelets (Bld) [#/Vol] 334 10*3/uL Normal 150-450 [facility] Comment on above: Performed By: #### L 100.0100, L500.2500, L501.4021 #### [facility] [address] [place], [address] RBC (Bld) [#/Vol] 4.93 10*6/uL Normal 4.6-6.2 [facility] Comment on above: Performed By: #### L 100.0100, L500.2500, L501.4021 #### [facility] [address] [place], [address] RDW SD 44.8 fl High 35.1-43.9 [facility] Comment on above: Performed By: #### L 100.0100, L500.2500, L501.4021 #### [facility] [address] [place], [address] WBC (Bld) [#/Vol] 13.6 10*3/uL High 4.4-11.0 [facility] Comment on above: Performed By: #### L 100.0100, L500.2500, L501.4021 #### [facility] [address] [place], [address] CO2 (BldV) [Moles/Vol]Ordere d By: Oneal Ng on 04-20-2025 CO2 [Moles/Vol] 30 mmol/L 23-33 [facility] Carbon dioxide, total [Moles /volume] in Central venous bloodOrdered By: Minal Castro on 04-20-2025 CO2 [Moles/Vol] 22.7 mmol/L 21.0-32.0 [facility] Chest 1 View (Portable)on Chest 1 View (Portable) [facility] Imaging Services [address] [place] [address] Chest 1 View (Portable) MR#: [id number] Acct: [id number] Name: MELCHOR LYLE Rep #: [id number] : 1960 M 64 From: Delores Betts nd, MD PCP: [facility] Status: PRE ER Study: Chest 1 View (Portable) Date of Exam: 04/20/25 Exam# [id number] Ordering Dr: Minal Castro PROCEDURE: CHEST 1 [...] (Portable) IMPRESSION: No Acute Findings. Reading Location: [id number] CC: JEY Sheppard; [facility] Mine Analyst: Signed Normal [facility] Chloride assayOrdered By: Hyun Castro on 04-20-2025 Chloride [Moles/Vol] 95 mmol/L Low 98-108 [facility] Emergency Department Summary on 04-20-2025 Emergency Department Summary [facility] Medical Records Department [address] [place] [address] Emergency Department Summary 04/20/25 MR#: [id number] Acct: [id number] Name: MELCHOR LYLE Rep #: [id number] : 1960 64 From: Minal JUÁREZ PCP: [facility] Status:ADM IN Location: [place] [address] HPI History of Present Illness Chief Complaint: [...] did not approve it for further use. [facility] Medical History (Updated 04/20/25 @ 16:03 by [...] exacerbation, pneumonia, (more content not included)... Normal [facility] Eosinophil percentageOrdered By: Minal Castro on 04-20-2025 Eosinophils/100 WBC (Bld) 2.3 % 0-5 [facility] Erythrocyte distribution wid th ratioOrdered By: Minal Castro on 04-20-2025 Erythrocyte distribution width (RBC) [Ratio] 13.1 % 11.6-14.6 [facility] Erythrocyte distribution wid th standard deviationOrdered By: Minal Castro on 04-20-2025 Erythrocyte distribution width (RBC) [Ratio] 44.8 fl High 35.1-43.9 [facility] Glomerular filtration rate ( GFR) estimation/1.73 sq m using serum, plasma, or whole bOrdered By: Minal Castro on 04-20-2025 GFR/1.73 sq M.predicted among non-blacks MDRD (S/P/Bld) [Vol rate/Area] 82 mL/min/{1.73_m2} >60 [facility] Comment on above: mL/min/1.73m2 CKD-EP I Creatinine Equation (2020) Gram stainOrdered By: Madiha Razo on 04-20-2025 Microscopic observation Gram stain Nom (Unsp spec) [facility] H AND P Exam - [facility] 04-20-2025 H&P Exam - Hospitalist [facility] Medical Records Department [address] [place] [address] H P Exam - Hospitalist 04/20/25 1434 MR#: [id number] Acct: [id number] Name: MELCHOR LYLE Rep #: [id number] : 1960 64 From: Madiha Razo MD PCP: [facility] Status:ADM IN Location: [facility] [id number] HPI - General General Date of Admission: 04/20/25 Date of Service: 04/20/25 Chief Complaint: Increasing SOB HPI Narrative MELCHOR LYLE, is a 64 M with a history of suspected COPD, tobacco use, hypertension and seasonal allergies who presented to [facility] ED 04/20/2025 due to increasing shortness [...] and steroids but is still significantly struggling. [facility] Medical History Hypertension Home Medications [...] 80.1 H, Lymph % (Auto) 9.1 L, [place] % (Auto) 7.4, E (more content not included)... Normal [facility] Hematocrit Auto (Bld) [Volum e fraction]Ordered By: Minal Castro on 04-20-2025 Hematocrit (Bld) [Volume fraction] 46.4 % 40-54 [facility] Hemoglobin measurementOrdere d By: Minal Castro on 04-20-2025 Hemoglobin (Bld) [Mass/Vol] 15.9 g/dL 13.0-16.5 [facility] Immature granulocytes/100 WB C Auto (Bld)Ordered By: Minal Castro on 04-20-2025 Immature granulocytes/100 WBC (Bld) 0.400 % 0.0-0.9 [facility] Comment on above: IG% - Immature Granu locytes (promyelocytes, myelocytes and metamyelocytes) > 1% indicates that a LEFT SHIFT is Present. Influenza virus A and B and SARS-CoV-2 (COVID-19) and Respiratory syncytial virus RNAOrdered By: Minal Castro on 04-20-2025 SARS-CoV-2 (COVID-19) RNA LORRAINE+probe Ql (Unsp spec) [facility] L501.4021on 04-20-2025 Trop T High Sen < 6 Normal <=22 [facility] Comment on above: Performed By: #### L 501.4021 #### [facility] [address] [place], [address] Trop T High Sen < 6 Normal <=22 [facility] Comment on above: Performed By: #### L 100.0100, L500.2500, L501.4021 #### [facility] [address] [place], [address] M100.678on 04-20-2025 M100.678 Pending SARS-CoV-2 (COVID 19) Negative INFLUENZA A Negative INFLUENZA B Negative RSV PCR Negative Normal [facility] Comment on above: Performed By: #### L 500.2500, L100.0100 #### [facility] [address] [place], [address] MCV (mean corpuscular volume ) determinationOrdered By: Minal Castro on 04-20-2025 MCV (RBC) [Entitic vol] 94.1 fL High 80-94 [facility] Mean corpuscular hemoglobin (MCH) determinationOrdered By: Minal Castro on 04-20-2025 MCH (RBC) [Entitic mass] 32.3 pg High 27.0-32.0 [facility] Mean corpuscular hemoglobin concentration (MCHC) determinationOrdered By: Minal Castro on 04-20-2025 MCHC (RBC) [Mass/Vol] 34.3 g/dL 32-36 [facility] Mean platelet volume determi nationOrdered By: Minal Castro on 04-20-2025 Platelet mean volume (Bld) [Entitic vol] 9.3 fL 6.2-12.0 [facility] Monocyte percentageOrdered B y: Minal Castro on 04-20-2025 Monocytes/100 WBC (Bld) 7.4 % 0-10 [facility] Neutrophil percentageOrdered By: Minal Castro on 04-20-2025 Neutrophils/100 WBC (Bld) 80.1 % High 47-70 [facility] No Panel InformationOrdered By: Oneal Ng on 04-20-2025 Blood Gas Sample Site Not entered [facility] Blood Gas Specimen Type NIRMAL [facility] Oxygen Delivery Device Not entered [facility] Nucleated red blood cell per centageOrdered By: Minal Castro on 04-20-2025 Nucleated RBC/100 WBC (Bld) [Ratio] 0 % 0-5 [facility] Platelet countOrdered By: Hyun Castro on 04-20-2025 Platelets (Bld) [#/Vol] 334 10*3/uL 150-450 [facility] Potassium measurement (mass/ volume)Ordered By: Minal Castro on 04-20-2025 Potassium (Unsp spec) [Mass/Vol] 4.4 mmol/L 3.3-5.1 [facility] RBC Auto (Bld) [#/Vol]Ordere d By: Minal Castro on 04-20-2025 RBC (Bld) [#/Vol] 4.93 10*6/uL 4.6-6.2 [facility] RESPIRATORY PANEL MOLECULARo n 04-20-2025 RP PANEL ADENOVIRUS Not Detected INFLUENZA A Not Detected INFLUENZA A (SUBTYPE H1) Not Detected INFLUENZA A (SUBTYPE H3) Not Detected INFLUENZA B Not Detected HUMAN METAPHNEUMO Not Detected PARAINFLUENZA 1 Not Detected PARAINFLUENZA 2 Not Detected PARAINFLUENZA 3 Not Detected PARAINFLUENZA 4 Not Detected RHINOVIRUS Not Detected RSV A Not Detected RSV B Not Detected Normal [facility] Comment on above: Performed By: #### L 500.2500, L100.0100 #### [facility] [address] [place], [address] Respiratory pathogens detect ion panel by molecular detection methodOrdered By: Madiha Razo on 04-20-2025 Respiratory pathogens DNA and RNA panel LORRAINE+probe (Resp) [facility] Serum creatinine measurement (mass/volume)Ordered By: Minal Castro on 04-20-2025 Creatinine [Mass/Vol] 1.01 mg/dL 0.70-1.20 [facility] Serum glucose measurement (m ass/volume)Ordered By: Minal Castro on 04-20-2025 Glucose [Mass/Vol] 116 mg/dL High 70-99 [facility] Serum or plasma calcium doni urement (mass/volume)Ordered By: Minal Castro on 04-20-2025 Calcium [Mass/Vol] 9.3 mg/dL 7.6-11.0 [facility] Serum or plasma urea nitroge n measurement (mass/volume)Ordered By: Minal Castro on 04-20-2025 Urea nitrogen [Mass/Vol] 15 mg/dL 4-19 [facility] Sodium levelOrdered By: Minal Castro on 04-20-2025 Sodium [Moles/Vol] 133 mmol/L 133-145 [facility] Troponin T HS 2 HRon 025 Trop T High Sen 7 ng/L Normal <=22 [facility] Comment on above: Performed By: #### L 500.2500, L100.0500 #### [facility] [address] [place], [place], [address] Troponin T.cardiac [Mass/vol ume] in Serum or Plasma by High sensitivity methodOrdered By: Madiha Razo on 04-20-2025 Troponin T.cardiac High sensitivity method [Mass/Vol] < 6 ng/L <22 [facility] Troponin T.cardiac [Mass/vol ume] in Serum or Plasma by High sensitivity methodOrdered By: Minal Castro on 04-20-2025 Troponin T.cardiac High sensitivity method [Mass/Vol] 7 ng/L <22 [facility] Troponin T.cardiac High sensitivity method [Mass/Vol] < 6 ng/L <22 [facility] Venous Blood Gason 5 Blood Gas Type NIRMAL Normal [facility] Comment on above: Performed By: #### L 9000.0810 #### [facility] [address] [place], [address] CO2 [Moles/Vol] 30 mmol/L Normal 23-33 [facility] Comment on above: Performed By: #### L 9000.0810 #### [facility] [address] [place], [address] HCO3 (Bld) [Moles/Vol] 29 mmol/L High 22-26 [facility] Comment on above: Performed By: #### L 9000.0810 #### [facility] [address] [place], [address] O2 Delivery Dev Not entered Normal [facility] Comment on above: Performed By: #### L 9000.0810 #### [facility] [address] [place], [address] SITE Not entered Normal [facility] Comment on above: Performed By: #### L 9000.0810 #### [facility] [address] [place], [address] VBG BE 4 mmol/L High -1.0-3.5 [facility] Comment on above: Performed By: #### L 9000.0810 #### [facility] [address] [place], [address] VBG pCO2 46.3 mmHg Normal 41-51 [facility] Comment on above: Performed By: #### L 9000.0810 #### [facility] [address] [place], [address] VBG pH 7.40 Normal 7.32-7.42 [facility] Comment on above: Performed By: #### L 9000.0810 #### [facility] [address] [place], [address] VBG PO2 80 mmHg High 25-40 [facility] Comment on above: Performed By: #### L 9000.0810 #### [facility] [address] [place], [address] VBG SO2 96 High 50-70 [facility] Comment on above: Performed By: #### L 9000.0810 #### [facility] [address] [place], [address] Venous blood base excess rich surementOrdered By: Oneal Ng on 04-20-2025 Base excess Calc (BldV) [Moles/Vol] 4 mmol/L High -1.0-3.5 [facility] Venous blood bicarbonate rich surementOrdered By: Oneal Ng on 04-20-2025 HCO3 (Bld) [Moles/Vol] 29 mmol/L High 22-26 [facility] Venous blood oxygen saturati on measurementOrdered By: Oneal Ng on 04-20-2025 Oxygen saturation in Blood 96 % High 50-70 [facility] Venous blood pH measurementO rdered By: Oneal Ng on 04-20-2025 pH (BldV) 7.40 [pH] 7.32-7.42 [facility] Venous blood partial pressur e of carbon dioxide measurementOrdered By: Oneal Ng on 04-20-2025 CO2 (BldV) [Partial pressure] 46.3 mm[Hg] 41-51 [facility] Venous blood partial pressur e of oxygen measurementOrdered By: Oneal Yo on 04-20-2025 Oxygen (BldV) [Partial pressure] 80 mm[Hg] High 25-40 [facility] White blood cell (WBC) count Ordered By: Minal Castro on 04-20-2025 WBC (Bld) [#/Vol] 13.6 10*3/uL High 4.4-11.0 [facility] Basic Metabolic Profile (BMP )on 05-29-2024 BUN/CRE 16.2 RATIO Normal 10-20 [facility] Comment on above: Performed By: #### L 500.2500, L100.0500 #### [facility] [address] [place], [address] CA,Total 9.7 mg/dL Normal 8.5-10.1 [facility] Comment on above: Performed By: #### L 500.2500, L100.0500 #### [facility] [address] [place], [address] Chloride [Moles/Vol] 102 mmol/L Normal 98-107 [facility] Comment on above: Performed By: #### L 500.2500, L100.0500 #### [facility] [address] [place], [address] CO2 [Moles/Vol] 26.0 mmol/L Normal 21.0-32.0 [facility] Comment on above: Performed By: #### L 500.2500, L100.0500 #### [facility] [address] [place], [address] Creatinine [Mass/Vol] 1.05 mg/dL Normal 0.70-1.30 [facility] Comment on above: Result Comment: The validity of the calculated GFR GFRAA in patients over 70 years has not been determined. Clinical correlation is essential. Performed By: #### L 500.2500, L100.0500 #### [facility] [address] [place], [address] ECRCL 72.08 ml/min Normal [facility] Comment on above: Performed By: #### L 500.2500, L100.0500 #### [facility] [address] [place], [address] EST GFR - AA 91 mL/min Normal >60 [facility] Comment on above: Result Comment: Afri can Colombian GFR Calc Performed By: #### L 500.2500, L100.0500 #### [facility] [address] [place], [address] GAP 7 Normal 5-15 [facility] Comment on above: Performed By: #### L 500.2500, L100.0500 #### [facility] [address] [place], [address] GFR/1.73 sq M.predicted among non-blacks MDRD (S/P/Bld) [Vol rate/Area] 75 mL/min/{1.73_m2} Normal >60 [facility] Comment on above: Result Comment: Non- GFR Calc Performed By: #### L 500.2500, L100.0500 #### [facility] [address] [place], [address] Glucose [Mass/Vol] 149 mg/dL High 74-106 [facility] Comment on above: Result Comment: Fast ing Glucose result greater than or equal to 126 mg/dL suggests DIABETES MELLITUS per A.D.A. criteria. Performed By: #### L 500.2500, L100.0500 #### [facility] [address] [place], [address] Potassium [Moles/Vol] 4.4 mmol/L Normal 3.5-5.1 [facility] Comment on above: Performed By: #### L 500.2500, L100.0500 #### [facility] [address] [place], [address] Sodium [Moles/Vol] 135 mmol/L Low 136-145 [facility] Comment on above: Performed By: #### L 500.2500, L100.0500 #### [facility] [address] [place], [address] Urea nitrogen [Mass/Vol] 17 mg/dL Normal 7-18 [facility] Comment on above: Performed By: #### L 500.2500, L100.0500 #### [facility] [address] [place], [address] CBC W/Diff, Automatedon 05-19 Absolute Lymph 1.10 X10 3/uL Normal 0.83-4.51 [facility] Comment on above: Performed By: #### L 500.2500, L100.0500 #### [facility] [address] [place], [address] Absolute Neut 14.7 X10 3/uL High 2.0-7.7 [facility] Comment on above: Performed By: #### L 500.2500, L100.0500 #### [facility] [address] [place], [address] Basophils/100 WBC (Bld) 0.1 % Normal 0-1 [facility] Comment on above: Performed By: #### L 500.2500, L100.0500 #### [facility] [address] [place], [address] Eosinophils/100 WBC (Bld) 0.0 % Normal 0-5 [facility] Comment on above: Performed By: #### L 500.2500, L100.0500 #### [facility] [address] [place], [address] Erythrocyte distribution width (RBC) [Ratio] 13.0 % Normal 11.6-14.6 [facility] Comment on above: Performed By: #### L 500.2500, L100.0500 #### [facility] [address] [place], [address] Hematocrit (Bld) [Volume fraction] 46.5 % Normal 40-54 [facility] Comment on above: Performed By: #### L 500.2500, L100.0500 #### [facility] [address] [place], [address] Hemoglobin (Bld) [Mass/Vol] 15.2 g/dL Normal 13.0-16.5 [facility] Comment on above: Performed By: #### L 500.2500, L100.0500 #### [facility] [address] [place], [address] IG% 1.100 High 0.0-0.9 [facility] Comment on above: Result Comment: IG% - Immature Granulocytes (promyelocytes, myelocytes and metamyelocytes) > 1% indicates that a LEFT SHIFT is Present. Performed By: #### L 500.2500, L100.0500 #### [facility] [address] [place], [address] Lymphocytes/100 WBC (Bld) 6.7 % Low 19-41 [facility] Comment on above: Performed By: #### L 500.2500, L100.0500 #### [facility] [address] [place], [address] MCH (RBC) [Entitic mass] 31.8 pg Normal 27.0-32.0 [facility] Comment on above: Performed By: #### L 500.2500, L100.0500 #### [facility] [address] [place], [address] MCHC (RBC) [Mass/Vol] 32.7 g/dL Normal 32-36 [facility] Comment on above: Performed By: #### L 500.2500, L100.0500 #### [facility] [address] [place], [address] MCV (RBC) [Entitic vol] 97.3 fL High 80-94 [facility] Comment on above: Performed By: #### L 500.2500, L100.0500 #### [facility] [address] [place], [address] Monocytes/100 WBC (Bld) 3.0 % Normal 0-10 [facility] Comment on above: Performed By: #### L 500.2500, L100.0500 #### [facility] [address] [place], [address] Neutrophils/100 WBC (Bld) 89.1 % High 47-70 [facility] Comment on above: Performed By: #### L 500.2500, L100.0500 #### [facility] [address] [place], [address] Nucleated RBC (Bld) [#/Vol] 0 10*3/uL Normal 0-5 [facility] Comment on above: Performed By: #### L 500.2500, L100.0500 #### [facility] [address] [place], [address] Platelet mean volume (Bld) [Entitic vol] 9.4 fL Normal 6.2-12.0 [facility] Comment on above: Performed By: #### L 500.2500, L100.0500 #### [facility] [address] [place], [address] Platelets (Bld) [#/Vol] 377 10*3/uL Normal 150-450 [facility] Comment on above: Performed By: #### L 500.2500, L100.0500 #### [facility] [address] [place], [address] RBC (Bld) [#/Vol] 4.78 10*6/uL Normal 4.6-6.2 [facility] Comment on above: Performed By: #### L 500.2500, L100.0500 #### [facility] [address] [place], [address] RDW SD 46.9 fl High 35.1-43.9 [facility] Comment on above: Performed By: #### L 500.2500, L100.0500 #### [facility] [address] [place], [address] WBC (Bld) [#/Vol] 16.5 10*3/uL High 4.4-11.0 [facility] Comment on above: Performed By: #### L 500.2500, L100.0500 #### [facility] [address] [place], [address] Discharge Instructionon 05-19 Discharge Instruction [facility] Medical Records Department [address] [place] [address] Instructions for Home/Discharge Instructions 05/29/24 1243 MR#: [id number] Acct: [id number] Name: MELCHOR LYLE Rep #: [id number] : 1960 63 From: Madiha Razo MD PCP: [facility] Hospital Status:ADM IN Discharge Instructions Diet Discharge [...] Attending Provider: Madiha Razo Primary Care Provider: [facility] Instructions Patient Instructions: Asthma and COPD, COPD [...] -For your continued congestion please obtain Mucinex [id number] to help with your congestion symptoms -Continue to use your albuterol inhaler as needed, we discussed nebulizers and per discussion you will follow-up with your [place] doctors for this -Please call your primary [...] Becker MD [Non-Staff] - Within 1 Week [facility] [Primary Care Provider] - Disposition Disposition (needs filled in before D/C Order can be placed): Home, Self Care 05/29/24 1251 Madiha Razo MD CC: [facility] Signed Normal [facility] Respiratory Cultureon 2023 RESPC Pseudomonas aeruginosa Amount Growth 1+ Pseudomonas aeruginosa: REACTION Aztreonam Islt KB 27 S Pseudomonas aeruginosa: REACTION Amikacin Islt ARMAAN <=2 S Cefepime Islt ARMAAN 2 S Ciprofloxacin Islt ARMAAN <=0.25 S Imipenem Islt ARMAAN 1 S levoFLOXacin Islt ARMAAN 0.5 S Meropenem Islt ARMAAN <=0.25 S Pip+Tazo Islt ARMAAN 8 S Tobramycin Islt ARMAAN <=1 S Normal [facility] Comment on above: Performed By: #### L 500.2500, L100.0500 #### [facility] [address] [place], [address] Basic Metabolic Profile (BMP )on 05-28-2024 BUN/CRE 13.9 RATIO Normal 07-07 [facility] Comment on above: Performed By: #### L 500.2500, L100.0500 #### [facility] [address] [place], [place], [address] CA,Total 9.4 mg/dL Normal 8.5-10.1 [facility] Comment on above: Performed By: #### L 500.2500, L100.0500 #### [facility] [address] [place], [address] Chloride [Moles/Vol] 102 mmol/L Normal 98-107 [facility] Comment on above: Performed By: #### L 500.2500, L100.0500 #### [facility] [address] [place], [address] CO2 [Moles/Vol] 25.0 mmol/L Normal 21.0-32.0 [facility] Comment on above: Performed By: #### L 500.2500, L100.0500 #### [facility] [address] [place], [address] Creatinine [Mass/Vol] 1.01 mg/dL Normal 0.70-1.30 [facility] Comment on above: Result Comment: The validity of the calculated GFR GFRAA in patients over 70 years has not been determined. Clinical correlation is essential. Performed By: #### L 500.2500, L100.0500 #### [facility] [address] [place], [address] ECRCL 74.94 ml/min Normal [facility] Comment on above: Performed By: #### L 500.2500, L100.0500 #### [facility] [address] [place], [address] EST GFR - AA 95 mL/min Normal >60 [facility] Comment on above: Result Comment: Afri can Colombian GFR Calc Performed By: #### L 500.2500, L100.0500 #### [facility] [address] [place], [address] GAP 7 Normal 5-15 [facility] Comment on above: Performed By: #### L 500.2500, L100.0500 #### [facility] [address] [place], [address] GFR/1.73 sq M.predicted among non-blacks MDRD (S/P/Bld) [Vol rate/Area] 79 mL/min/{1.73_m2} Normal >60 [facility] Comment on above: Result Comment: Non- GFR Calc Performed By: #### L 500.2500, L100.0500 #### [facility] [address] [place], [address] Glucose [Mass/Vol] 139 mg/dL High 74-106 [facility] Comment on above: Result Comment: Fast ing Glucose result greater than or equal to 126 mg/dL suggests DIABETES MELLITUS per A.D.A. criteria. Performed By: #### L 500.2500, L100.0500 #### [facility] [address] [place], [address] Potassium [Moles/Vol] 3.9 mmol/L Normal 3.5-5.1 [facility] Comment on above: Performed By: #### L 500.2500, L100.0500 #### [facility] [address] [place], [address] Sodium [Moles/Vol] 134 mmol/L Low 136-145 [facility] Comment on above: Performed By: #### L 500.2500, L100.0500 #### [facility] [address] [place], [address] Urea nitrogen [Mass/Vol] 14 mg/dL Normal 7-18 [facility] Comment on above: Performed By: #### L 500.2500, L100.0500 #### [facility] [address] [place], [address] CBC W/Diff, Automatedon 05-19 0-2023 Absolute Lymph 1.34 X10 3/uL Normal 0.83-4.51 [facility] Comment on above: Performed By: #### L 500.2500, L100.0500 #### [facility] [address] [place], [address] Absolute Neut 12.2 X10 3/uL High 2.0-7.7 [facility] Comment on above: Performed By: #### L 500.2500, L100.0500 #### [facility] [address] [place], [address] Basophils/100 WBC (Bld) 0.3 % Normal 0-1 [facility] Comment on above: Performed By: #### L 500.2500, L100.0500 #### [facility] [address] [place], [address] Eosinophils/100 WBC (Bld) 0.1 % Normal 0-5 [facility] Comment on above: Performed By: #### L 500.2500, L100.0500 #### [facility] [address] [place], [address] Erythrocyte distribution width (RBC) [Ratio] 13.0 % Normal 11.6-14.6 [facility] Comment on above: Performed By: #### L 500.2500, L100.0500 #### [facility] [address] [place], [address] Hematocrit (Bld) [Volume fraction] 44.4 % Normal 40-54 [facility] Comment on above: Performed By: #### L 500.2500, L100.0500 #### [facility] [address] [place], [address] Hemoglobin (Bld) [Mass/Vol] 14.9 g/dL Normal 13.0-16.5 [facility] Comment on above: Performed By: #### L 500.2500, L100.0500 #### [facility] [address] [place], [address] IG% 0.600 Normal 0.0-0.9 [facility] Comment on above: Result Comment: IG% - Immature Granulocytes (promyelocytes, myelocytes and metamyelocytes) > 1% indicates that a LEFT SHIFT is Present. Performed By: #### L 500.2500, L100.0500 #### [facility] [address] [place], [address] Lymphocytes/100 WBC (Bld) 9.2 % Low 19-41 [facility] Comment on above: Performed By: #### L 500.2500, L100.0500 #### [facility] [address] [place], [address] MCH (RBC) [Entitic mass] 32.2 pg High 27.0-32.0 [facility] Comment on above: Performed By: #### L 500.2500, L100.0500 #### [facility] [address] [place], [address] MCHC (RBC) [Mass/Vol] 33.6 g/dL Normal 32-36 [facility] Comment on above: Performed By: #### L 500.2500, L100.0500 #### [facility] [address] [place], [address] MCV (RBC) [Entitic vol] 95.9 fL High 80-94 [facility] Comment on above: Performed By: #### L 500.2500, L100.0500 #### [facility] [address] [place], [address] Monocytes/100 WBC (Bld) 6.5 % Normal 0-10 [facility] Comment on above: Performed By: #### L 500.2500, L100.0500 #### [facility] [address] [place], [address] Neutrophils/100 WBC (Bld) 83.3 % High 47-70 [facility] Comment on above: Performed By: #### L 500.2500, L100.0500 #### [facility] [address] [place], [address] Nucleated RBC (Bld) [#/Vol] 0 10*3/uL Normal 0-5 [facility] Comment on above: Performed By: #### L 500.2500, L100.0500 #### [facility] [address] [place], [address] Platelet mean volume (Bld) [Entitic vol] 9.4 fL Normal 6.2-12.0 [facility] Comment on above: Performed By: #### L 500.2500, L100.0500 #### [facility] [address] [place], [address] Platelets (Bld) [#/Vol] 367 10*3/uL Normal 150-450 [facility] Comment on above: Performed By: #### L 500.2500, L100.0500 #### [facility] [address] [place], [address] RBC (Bld) [#/Vol] 4.63 10*6/uL Normal 4.6-6.2 [facility] Comment on above: Performed By: #### L 500.2500, L100.0500 #### [facility] [address] [place], [address] RDW SD 45.8 fl High 35.1-43.9 [facility] Comment on above: Performed By: #### L 500.2500, L100.0500 #### [facility] [address] [place], [address] WBC (Bld) [#/Vol] 14.6 10*3/uL High 4.4-11.0 [facility] Comment on above: Performed By: #### L 500.2500, L100.0500 #### [facility] [address] [place], [address] Magnesiumon 05-28-2024 Magnesium [Mass/Vol] 2.3 mg/dL Normal 1.6-2.6 [facility] Comment on above: Performed By: #### L 500.2500, L100.0500 #### [facility] [address] [place], [address] Phosphoruson 05-28-2024 Phosphate [Mass/Vol] 4.1 mg/dL Normal 2.5-4.9 [facility] Comment on above: Performed By: #### L 500.2500, L100.0500 #### [facility] [address] [place], [address] Thyroid Stim Hormone (TSH)on 05-28-2024 TSH 0.502 uIU/mL Normal 0.358-3.740 [facility] Comment on above: Performed By: #### L 500.2500, L100.0500 #### [facility] [address] [place], [address] 12 Lead EKGon 05-27-2024 12 Lead EKG [facility] Cardiovascular Services [address] [facility] [place] [address] 12 Lead EKG 05/27/24 0728 MR#: [id number] Acct: [id number] Name: MELCHOR LYLE Rep #: [id number] : 1960 63 From: Vance Gomez MD Attending Dr: Dr. Madiha Razo MD Status: ADM IN Ordering Dr: Mike Headley DO Date: 05/27/24 Location: [facility] Sex: M C Admitted: 05/27/24 Test Reason : SOB Blood Pressure : / mmHG Vent. Rate : 096 BPM Atrial Rate : 096 BPM P-R Int : 168 ms QRS Dur : 068 ms QT Int : 324 ms P-R-T Axes : 031 030 052 degrees QTc Int : 409 ms Normal sinus rhythm Normal ECG Confirmed by NADINE TERAN, VANCE ([id number]), senior editor HUMZA CANO ([id number]) on 05/28/2024 7:34:34 AM Referred By: DH Confirmed By:VANCE GOMEZ MD 05/28/24 0734 Date Vance Gomez MD CC: Dr. Mike Headley DO; Dr. Madiha Razo MD; [facility] Signed Normal [facility] BNP,B-Type NATRIURETIC PEPTI Jeovany 05-27-2024 Natriuretic peptide B (Bld) [Mass/Vol] 6.5 pg/mL Normal 0-100 [facility] Comment on above: Performed By: #### L 500.2500, L100.0500 #### [facility] [address] [place], [address] Basic Metabolic Profile (BMP )on 05-27-2024 BUN/CRE 12.8 RATIO Normal 10-20 [facility] Comment on above: Order Comment: 'TROP ' Serial specimen #1, #2 or #3: 1 Performed By: #### L 500.2500, L100.0500 #### [facility] [address] [place], [address] CA,Total 9.6 mg/dL Normal 8.5-10.1 [facility] Comment on above: Order Comment: 'TROP ' Serial specimen #1, #2 or #3: 1 Performed By: #### L 500.2500, L100.0500 #### [facility] [address] [place], [address] Chloride [Moles/Vol] 102 mmol/L Normal 98-107 [facility] Comment on above: Order Comment: 'TROP ' Serial specimen #1, #2 or #3: 1 Performed By: #### L 500.2500, L100.0500 #### [facility] [address] [place], [address] CO2 [Moles/Vol] 27.0 mmol/L Normal 21.0-32.0 [facility] Comment on above: Order Comment: 'TROP ' Serial specimen #1, #2 or #3: 1 Performed By: #### L 500.2500, L100.0500 #### [facility] [address] [place], [address] Creatinine [Mass/Vol] 1.09 mg/dL Normal 0.70-1.30 [facility] Comment on above: Order Comment: 'TROP ' Serial specimen #1, #2 or #3: 1 Result Comment: The validity of the calculated GFR GFRAA in patients over 70 years has not been determined. Clinical correlation is essential. Performed By: #### L 500.2500, L100.0500 #### [facility] [address] [place], [address] ECRCL 70.18 ml/min Normal [facility] Comment on above: Order Comment: 'TROP ' Serial specimen #1, #2 or #3: 1 Performed By: #### L 500.2500, L100.0500 #### [facility] [address] [place], [address] EST GFR - AA 87 mL/min Normal >60 [facility] Comment on above: Order Comment: 'TROP ' Serial specimen #1, #2 or #3: 1 Result Comment: Afri can Colombian GFR Calc Performed By: #### L 500.2500, L100.0500 #### [facility] [address] [place], [address] GAP 8 Normal 5-15 [facility] Comment on above: Order Comment: 'TROP ' Serial specimen #1, #2 or #3: 1 Performed By: #### L 500.2500, L100.0500 #### [facility] [address] [place], [address] GFR/1.73 sq M.predicted among non-blacks MDRD (S/P/Bld) [Vol rate/Area] 72 mL/min/{1.73_m2} Normal >60 [facility] Comment on above: Order Comment: 'TROP ' Serial specimen #1, #2 or #3: 1 Result Comment: Non- GFR Calc Performed By: #### L 500.2500, L100.0500 #### [facility] [address] [place], [address] Glucose [Mass/Vol] 157 mg/dL High 74-106 [facility] Comment on above: Order Comment: 'TROP ' Serial specimen #1, #2 or #3: 1 Result Comment: Fast ing Glucose result greater than or equal to 126 mg/dL suggests DIABETES MELLITUS per A.D.A. criteria. Performed By: #### L 500.2500, L100.0500 #### [facility] [address] [place], [address] Potassium [Moles/Vol] 4.4 mmol/L Normal 3.5-5.1 [facility] Comment on above: Order Comment: 'TROP ' Serial specimen #1, #2 or #3: 1 Performed By: #### L 500.2500, L100.0500 #### [facility] [address] [place], [address] Sodium [Moles/Vol] 137 mmol/L Normal 136-145 [facility] Comment on above: Order Comment: 'TROP ' Serial specimen #1, #2 or #3: 1 Performed By: #### L 500.2500, L100.0500 #### [facility] [address] [place], [address] Urea nitrogen [Mass/Vol] 14 mg/dL Normal 7-18 [facility] Comment on above: Order Comment: 'TROP ' Serial specimen #1, #2 or #3: 1 Performed By: #### L 500.2500, L100.0500 #### [facility] [address] [place], [address] CBC W/Diff, Automatedon 09-0 9-4 Absolute Lymph 1.40 X10 3/uL Normal 0.83-4.51 [facility] Comment on above: Performed By: #### L 500.2500, L100.0500 #### [facility] [address] [place], [address] Absolute Neut 10.6 X10 3/uL High 2.0-7.7 [facility] Comment on above: Performed By: #### L 500.2500, L100.0500 #### [facility] [address] [place], [address] Basophils/100 WBC (Bld) 0.8 % Normal 0-1 [facility] Comment on above: Performed By: #### L 500.2500, L100.0500 #### [facility] [address] [place], [address] Eosinophils/100 WBC (Bld) 2.9 % Normal 0-5 [facility] Comment on above: Performed By: #### L 500.2500, L100.0500 #### [facility] [address] [place], [address] Erythrocyte distribution width (RBC) [Ratio] 12.8 % Normal 11.6-14.6 [facility] Comment on above: Performed By: #### L 500.2500, L100.0500 #### [facility] [address] [place], [address] Hematocrit (Bld) [Volume fraction] 50.9 % Normal 40-54 [facility] Comment on above: Performed By: #### L 500.2500, L100.0500 #### [facility] [address] [place], [address] Hemoglobin (Bld) [Mass/Vol] 17.0 g/dL High 13.0-16.5 [facility] Comment on above: Performed By: #### L 500.2500, L100.0500 #### [facility] [address] [place], [address] IG% 0.500 Normal 0.0-0.9 [facility] Comment on above: Result Comment: IG% - Immature Granulocytes (promyelocytes, myelocytes and metamyelocytes) > 1% indicates that a LEFT SHIFT is Present. Performed By: #### L 500.2500, L100.0500 #### [facility] [address] [place], [address] Lymphocytes/100 WBC (Bld) 10.6 % Low 19-41 [facility] Comment on above: Performed By: #### L 500.2500, L100.0500 #### [facility] [address] [place], [address] MCH (RBC) [Entitic mass] 32.0 pg Normal 27.0-32.0 [facility] Comment on above: Performed By: #### L 500.2500, L100.0500 #### [facility] [address] [place], [address] MCHC (RBC) [Mass/Vol] 33.4 g/dL Normal 32-36 [facility] Comment on above: Performed By: #### L 500.2500, L100.0500 #### [facility] [address] [place], [address] MCV (RBC) [Entitic vol] 95.7 fL High 80-94 [facility] Comment on above: Performed By: #### L 500.2500, L100.0500 #### [facility] [address] [place], [address] Monocytes/100 WBC (Bld) 5.1 % Normal 0-10 [facility] Comment on above: Performed By: #### L 500.2500, L100.0500 #### [facility] [address] [place], [address] Neutrophils/100 WBC (Bld) 80.1 % High 47-70 [facility] Comment on above: Performed By: #### L 500.2500, L100.0500 #### [facility] [address] [place], [address] Nucleated RBC (Bld) [#/Vol] 0 10*3/uL Normal 0-5 [facility] Comment on above: Performed By: #### L 500.2500, L100.0500 #### [facility] [address] [place], [address] Platelet mean volume (Bld) [Entitic vol] 9.0 fL Normal 6.2-12.0 [facility] Comment on above: Performed By: #### L 500.2500, L100.0500 #### [facility] [address] [place], [address] Platelets (Bld) [#/Vol] 359 10*3/uL Normal 150-450 [facility] Comment on above: Performed By: #### L 500.2500, L100.0500 #### [facility] [address] [place], [address] RBC (Bld) [#/Vol] 5.32 10*6/uL Normal 4.6-6.2 [facility] Comment on above: Performed By: #### L 500.2500, L100.0500 #### [facility] [address] [place], [address] RDW SD 45.3 fl High 35.1-43.9 [facility] Comment on above: Performed By: #### L 500.2500, L100.0500 #### [facility] [address] [place], [address] WBC (Bld) [#/Vol] 13.2 10*3/uL High 4.4-11.0 [facility] Comment on above: Performed By: #### L 500.2500, L100.0500 #### [facility] [address] [place], [address] Chest 1 View (Portable)on Chest 1 View (Portable) [facility] Imaging Services [address] [place] [id number] Chest 1 View (Portable) MR#: [id number] Acct: [id number] Name: MELCHOR LYLE Rep #: [id number] : 1960 M 63 From: Faustino Alanis PCP: [facility] Status: REG ER Study: Chest 1 View (Portable) Date of Exam: 05/27/24 Exam# [id number] Ordering Dr: Mike Headley DO -[id number] INDICATION: cough/dyspnea EXAMINATION/TECHNIQ UE: X-RAY - [...] EDT , CC: Dr. Mike Headley DO; [facility] Mine Analyst: Signed Normal [facility] Emergency Department Summary on 05-27-2024 Emergency Department Summary [facility] Medical Records Department [address] [address] Emergency Department Summary 05/27/24 MR#: [id number] Acct: [id number] Name: MELCHOR LYLE Rep #: [id number] : 1960 63 From: Mike Headley DO PCP: [facility] Hospital Status:ADM IN Location: [facility] [id number] HPI History of Present Illness Chief Complaint: [...] the past couple days. He sees the PA in [place]. No vomiting or diarrhea. Denies any chest pain. [facility] Medical History Hypertension Home [...] intact bilaterally (more content not included)... Normal [facility] Gram Stainon 05-27-2024 GS Acceptable Specimen? Yes (<25 Epithelial cells per/lpf) Gram Stain 1+ White Blood Cells 2+ Epithelial cells 3+ Gram positive cocci in chains and clusters 1+ Gram positive rods 1+ Gram negative rods Normal [facility] Comment on above: Performed By: #### L 500.2500, L100.0500 #### [facility] [address] [facility] [place], [place], [address] H AND P Exam - Hospitaliston 05-27-2024 H&P Exam - Hospitalist [facility] Medical Records Department [address] [place] [address] H P Exam - Hospitalist 05/27/24 1001 MR#: [id number] Acct: [id number] Name: MELCHOR LYLE Rep #: [id number] : 1960 63 From: Madiha Razo MD PCP: [facility] Status:ADM IN [id number] - General General Date of Admission: 05/27/24 Date of Service: 05/27/24 Chief Complaint: Increasing shortness of breath HPI Narrative MELCHOR LYLE, is a 63 M with seasonal allergies and hypertension as well as suspected COPD and tobacco use who presented to [facility] ED 05/27/2024 with increasing shortness of [...] denies any other new or acute complaints. [facility] Medical History Hypertension Home Medications [...] edema Musc (more content not included)... Normal [facility] L501.4020on 05-27-2024 TROPONIN-I HS 5 pg/mL Normal 3.0-78.0 [facility] Comment on above: Order Comment: 'TROP ' Serial specimen #1, #2 or #3: 1 Result Comment: Michaelle michele Note: New Test Units and Gender Specific Reference Ranges. For more information see Policy Stat Procedure [place] High Sensitivity Troponin (TNIH) and attachments. Performed By: #### L 500.2500, L100.0500 #### [facility] [address] [place], [address] M100.678on 05-27-2024 M100.678 Pending SARS-CoV-2 (COVID 19) Negative INFLUENZA A Negative INFLUENZA B Negative RSV PCR Negative Normal [facility] Comment on above: Performed By: #### L 500.2500, L100.0100 #### [facility] [address] [place], [place], [address] RESPIRATORY PANEL MOLECULARo n 05-27-2024 RP PANEL [...] Not Detected RSV B Not Detected Normal [facility] Comment on above: Performed By: #### L 500.2500, L100.0100 #### [facility] [address] [facility] [address] [place], [place], [address] Absolute lymphocyte countOrd ered By: Linsey Spivey on 05-13-2023 Lymphocytes Auto (Unsp spec) [#/Vol] 0.84 10*3/uL 0.83-4.51 [facility] Basophil percentageOrdered B y: Linsey Patric on 05-13-2023 Basophils/100 WBC (Bld) 0.3 % 0-1 [facility] Bilirubin [Mass/Vol] 0.50 mg/dL 0.20-1.00 [facility] Comment on above: For patients on eltr ombopag therapy, use of Dimension [place] TBIL is not recommended. Chloride [Moles/Vol] 99 mmol/L 98-107 [facility] Eosinophils/100 WBC (Bld) 0.0 % 0-5 [facility] Glucose [Mass/Vol] 148 mg/dL 74-106 [facility] Comment on above: Fasting Glucose resu lt greater than or equal to 126 mg/dL suggests DIABETES MELLITUS per A.D.A. criteria. Neutrophils (Bld) [#/Vol] 10.6 10*3/uL 2.0-7.7 [facility] Neutrophils/100 WBC (Bld) 90.1 % 47-70 [facility] Potassium [Moles/Vol] 4.5 mmol/L 3.5-5.1 [facility] Protein [Mass/Vol] 8.6 g/dL 6.4-8.2 [facility] Sodium [Moles/Vol] 135 mmol/L 136-145 [facility] WBC (Bld) [#/Vol] 11.7 10*3/uL 4.4-11.0 [facility] Blood erythrocytes count (nu mber/volume)Ordered By: Linsey Spivey on 05-13-2023 RBC (Bld) [#/Vol] 4.74 10*6/uL 4.6-6.2 [facility] Blood hemoglobin measurement (mass/volume)Ordered By: Linsey Spivey on 05-13-2023 Hemoglobin (Bld) [Mass/Vol] 15.4 g/dL 13.0-16.5 [facility] Blood lymphocytes/100 leukoc ytesOrdered By: Linsey Spivey on 05-13-2023 Lymphocytes/100 WBC (Bld) 7.2 % 19-41 [facility] Blood monocytes/100 leukocyt esOrdered By: Linsey Spivey on 05-13-2023 Monocytes/100 WBC (Bld) 1.5 % 0-10 [facility] Blood platelet mean volumeOr dered By: Linsey Spivey on 05-13-2023 Platelet mean volume (Bld) [Entitic vol] 9.6 fL 6.2-12.0 [facility] Determination of erythrocyte mean corpuscular volume (MCV)Ordered By: Linsey Spivey on 05-13-2023 MCV (RBC) [Entitic vol] 98.9 fL 80-94 [facility] Hematocrit Auto (Bld) [Volum e fraction]Ordered By: iLnsey Spivey on 05-13-2023 Hematocrit (Bld) [Volume fraction] 46.9 % 40-54 [facility] Laboratory - Chemistry and C hemistry - challengeOrdered By: Linsey Spivey on 05-13-2023 ALP [Catalytic activity/Vol] 73 U/L 45-117 [facility] ALT [Catalytic activity/Vol] 38 U/L 16-61 [facility] CO2 [Moles/Vol] 28.0 mmol/L 21.0-32.0 [facility] Globulin (S) [Mass/Vol] 4.8 g/dL 2.2-4.2 [facility] Urea nitrogen/Creatinine [Mass ratio] 15.4 mg/mg 10-20 [facility] - Hematology and Cell countsOrdered By: Linsey Spivey on 05-13-2023 Erythrocyte distribution width (RBC) [Entitic vol] 48.9 fL 35.1-43.9 [facility] Erythrocyte distribution width (RBC) [Ratio] 13.4 % 11.6-14.6 [facility] Immature granulocytes/100 WBC (Bld) 0.900 % 0.0-0.9 [facility] [facility] Comment on above: IG% - Immature Granu locytes (promyelocytes, myelocytes and metamyelocytes) > 1% indicates that a LEFT SHIFT is Present. MCH (RBC) [Entitic mass] 32.5 pg 27.0-32.0 [facility] Nucleated RBC/100 WBC (Bld) [Ratio] 0 % 0-5 [facility] MCHC Auto (RBC) [Mass/Vol]Or dered By: Linsey Spivey on 05-13-2023 MCHC (RBC) [Mass/Vol] 32.8 g/dL 32-36 [facility] No Panel InformationOrdered By: Linsey Spivey on 05-13-2023 Estimated Creatinine Clearance Calc 66.92 ml/min [facility] Estimated GFR (MDRD) Amer 100 mL/min >60 [facility] Comment on above: GFR Calc Estimated GFR (MDRD) Non-Af Amer 82 mL/min >60 [facility] Comment on above: Non- GFR Calc Platelets bldOrdered By: Abraham Spivey on 05-13-2023 Platelets (Bld) [#/Vol] 300 10*3/uL 150-450 [facility] Serum or plasma albumin doni urement (mass/volume)Ordered By: Linsey Spivey on 05-13-2023 Albumin [Mass/Vol] 3.8 g/dL 3.2-5.0 [facility] Serum or plasma albumin/glob ulin mass ratioOrdered By: Linsey Spivey on 05-13-2023 Albumin/Globulin [Mass ratio] 0.8 {ratio} 0.9-2.4 [facility] Serum or plasma calcium doni urement (mass/volume)Ordered By: Linsey Spivey on 05-13-2023 Calcium [Mass/Vol] 9.4 mg/dL 8.5-10.1 [facility] Serum or plasma creatinine m easurement (mass/volume)Ordered By: Linsey Spivey on 05-13-2023 Creatinine [Mass/Vol] 0.97 mg/dL 0.70-1.30 [facility] Comment on above: The validity of the calculated GFR & GFRAA in patients over 70 years has not been determined. Clinical correlation is essential. Serum or plasma urea nitroge n measurement (mass/volume)Ordered By: Linsey Spivey on 05-13-2023 Urea nitrogen [Mass/Vol] 15 mg/dL 7-18 [facility] Thin prep Papanicolaou smear with manual screeningOrdered By: [facility] Patric on 05-13-2023 Thin prep Papanicolaou smear with manual screening 20 U/L 15-37 [facility] Thin prep Papanicolaou smear with manual screening 8 5-15 [facility] Gram stain for investigation of transfusion reactionOrdered By: Chino Sandoval on 05-12-2023 Microscopic observation Gram stain Nom (Unsp spec) [facility] Serum procalcitonin measurem entOrdered By: Linsey Spivey on 05-12-2023 Procalcitonin [Mass/Vol] 0.10 ng/mL 0.00-0.09 [facility] Comment on above: A procalcitonin (PCT [...] INR Coag (Bld) [Relative time] 1.0 {INR} [facility] Laboratory - CoagulationOrde red By: Frederick Cervantes on 05-11-2023 aPTT Coag (Bld) [Time] 26.3 s 24.1-36.2 [facility] PT Coag (PPP) [Time] 13.2 s 11.7-14.9 [facility] No Panel InformationOrdered By: Frederick Cervantes on 05-11-2023 Troponin I High Sensitivity 4 pg/mL 3.0-78.0 [facility] Comment on above: Please Note: New Valeria t Units and Gender Specific Reference Ranges. For more information see Policy Stat Procedure [place] High Sensitivity Troponin (TNIH) and attachments. D-Dimer Quantitative (PE/DVT) 0.33 FEU/ug/m 0.27-0.49 [facility] Comment on above: NORMAL D-Dimer level (<0.50) indicates no DVT or PE. Vital Signs Date Time Vital Sign Value Performing Clinician Faci lity 04-22-2025 12:47-0400 Body temperature 98.3 [degF] [facility] 04-22-2025 12:47-0400 Diastolic blood pressure 77 mm[Hg] [facility] 04-22-2025 12:47-0400 Heart rate 102 /min [facility] 04-22-2025 12:47-0400 Respiratory rate 18 /min [facility] 04-22-2025 12:47-0400 SaO2% (BldA) [Mass fraction] 92 % [facility] 04-22-2025 12:47-0400 Systolic blood pressure 150 mm[Hg] [facility] 04-22-2025 09:13-0400 Inhaled oxygen flow rate 3 L/min [facility] 04-22-2025 05:20-0400 Body mass index (BMI) [Ratio] 32.3 kg/m2 [facility] 04-22-2025 05:20-0400 Body weight 89.5 kg [facility] 04-21-2025 09:14-0400 Body height 166.37 cm [facility] 04-20-2025 15:43-0400 Body temperature 97.8 [degF] [facility] 04-20-2025 15:43-0400 Diastolic blood pressure 86 mm[Hg] [facility] 04-20-2025 15:43-0400 Heart rate 98 /min [facility] 04-20-2025 15:43-0400 Inhaled oxygen flow rate 2 L/min [facility] 04-20-2025 15:43-0400 Respiratory rate 22 /min [facility] 04-20-2025 15:43-0400 SaO2% (BldA) [Mass fraction] 95 % [facility] 04-20-2025 15:43-0400 Systolic blood pressure 149 mm[Hg] [facility] 04-20-2025 15:42-0400 Body height 166.37 cm [facility] 04-20-2025 15:42-0400 Body mass index (BMI) [Ratio] 31.9 kg/m2 [facility] 04-20-2025 15:42-0400 Body weight 88.4 kg [facility] 05-13-2023 12:08-0400 SaO2% (BldA) [Mass fraction] 91 % [facility] 05-13-2023 11:17-0400 Heart rate 89 /min [facility] 05-13-2023 11:17-0400 Respiratory rate 20 /min [facility] 05-13-2023 09:05-0400 Inhaled oxygen flow rate 2 L/min [facility] 05-13-2023 09:04-0400 Body temperature 98.3 [degF] [facility] 05-13-2023 09:04-0400 Diastolic blood pressure 72 mm[Hg] [facility] 05-13-2023 09:04-0400 Systolic blood pressure 143 mm[Hg] [facility] 05-11-2023 20:15-0400 Body height 165.1 cm [facility] 05-11-2023 20:15-0400 Body mass index (BMI) [Ratio] 31.1 kg/m2 [facility] 05-11-2023 20:15-0400 Body weight 84.8 kg [facility] Encounters Encounter Date Encounter Type Care Provider Facility Start: 04-22-2025 Non-patient / Non-visit Dr. Luis stanford MD -[facility] Work Phone: Start: 04-21-2025 Non-patient / Non-visit Dr. Eric NARAYANAN -[facility] Work Phone: Start: 04-20-2025 [facility]ulatory [facility] Start: 04-20-2025 End: 04-22-2025 Evaluation and management of inpatient Dr. Madiha Razo MD -[facility] Work Phone: Start: 05-27-2024 End: 05-29-2024 Evaluation and management of inpatient [facility] Facility:[facility] Start: 05-27-2024 ambulatory Madiha Razo Facility:[facility] Start: 05-13-2023 Non-patient / Non-visit [facility] Work Phone: Start: 05-12-2023 Non-patient / Non-visit [facility] Start: 05-12-2023 End: 05-13-2023 Evaluation and management of inpatient [facility] Work Phone: Start: 05-11-2023 Non-patient / Non-visit [facility] Work Phone: Procedures Date Procedure Procedure Detail Performing Clinician Start: 04-21-2025 Estimated creatinine clearance [facility] Start: 04-20-2025 Gram stain microscopy [facility] Start: 04-20-2025 Nucleic acid assay [facility] Start: 04-20-2025 SARS-CoV-2, Influenz a & RSV (PCR) [facility] Start: 04-20-2025 Estimated creatinine clearance [facility] Start: 04-20-2025 Plain chest X[facility]ray [facility] Start: 05-12-2023 Investigation of tra nsfusion reaction [facility] Start: 05-11-2023 Plain chest X-ray [facility] spital Plan of Treatment Date Care Activity Detail Author Start: 04-25-2025 Complete blood count [facility] Start: 04-24-2025 Complete blood count [facility] Start: 04-23-2025 Complete blood count [facility] Start: 04-23-2025 Serum inorganic phosphate measurement [facility] Start: 04-22-2025 Patient discharge [facility] Start: 04-20-2025 [facility] Start: 04-20-2025 Following clinical pathway protocol [facility] Start: 04-20-2025 Assessment of risk of venous thromboembolism [facility] Start: 04-20-2025 Bacteria identified in Sputum by Culture [facility] Start: 04-20-2025 Incentive spirometry [facility] Start: 04-20-2025 Inhalation therapy procedure [facility] Start: 04-20-2025 Insertion of catheter into peripheral vein [facility] Start: 04-20-2025 Measuring intake and output [facility] Start: 04-20-2025 Oxygen therapy [facility] Start: 04-20-2025 Providing care according to standard [facility] Start: 04-20-2025 Provision of activity privileges [facility] Start: 04-20-2025 Referral to service [facility] Start: 04-20-2025 Taking nasal swab [facility] Start: 04-20-2025 [facility] Start: 04-20-2025 Respiratory pathogens DNA and RNA panel - Respiratory specimen by LORRAINE with probe detection [facility] Start: 04-20-2025 Verification routine [facility] Start: 04-20-2025 Admission procedure [facility] Start: 04-20-2025 Respiratory Culture Respiratory Culture [facility] Start: 04-20-2025 [facility] Start: 04-20-2025 Consultation [facility] Start: 04-20-2025 Patient referral to dietitian [facility] Start: 05-13-2023 Patient discharge [facility] Start: 05-13-2023 [facility] Start: 05-13-2023 Physiotherapy of chest [facility] Start: 05-12-2023 Respiratory Culture Respiratory Culture [facility] Start: 05-12-2023 Admission procedure [facility] Start: 05-11-2023 Following clinical pathway protocol [facility] Start: 05-11-2023 Ambulation without limitation [facility] Start: 05-11-2023 Assessment of risk of venous thromboembolism [facility] Start: 05-11-2023 Insertion of catheter into peripheral vein [facility] Start: 05-11-2023 Oxygen therapy [facility] Start: 05-11-2023 Providing care according to standard [facility] Start: 05-11-2023 Referral to occupational therapist [facility] Start: 05-11-2023 Referral to service [facility] Start: 05-11-2023 [facility] Start: 05-11-2023 Admission procedure [facility] Start: 05-11-2023 Consultation [facility] Start: 05-11-2023 Inhalation therapy procedure [facility] Anion gap in Serum o r Plasma [facility] Bacteria identified in Unspecified specimen by Respiratory culture [facility] BUN/Creatinine ratio [facility] Calcium [Mass/volume ] in Serum or Plasma [facility] Carbon dioxide, tota l [Moles/volume] in Central venous blood [facility] Creatinine [Mass/vol ume] in Serum or Plasma [facility] Erythrocyte mean corpuscular volume determination [facility] Glucose [Mass/volume ] in Serum or Plasma [facility] Hematocrit [Volume Fraction] of Blood [facility] Hemoglobin [Mass/vol ume] in Blood [facility] Leukocytes [#/volume ] in Blood [facility] Mean corpuscular hem oglobin concentration determination [facility] Mean corpuscular hem oglobin determination [facility] Measurement of renal function [facility] Microorganism identi fied in Unspecified specimen by Culture [facility] Neutrophil count [facility] Neutrophil percent differential count [facility] Patient Education Chronic Lung D isease Infections Discharge Instructions: COPD [facility] Work Phone: Patient referral [facility] Work Phone: Platelets [#/volume] in Blood [facility] Potassium measurement [facility] Red blood cell count [facility] Red cell distributio n width determination [facility] Serum chloride measurement [facility] Sodium measurement [facility] Urea nitrogen [Mass/ volume] in Serum or Plasma [facility] Payers Date Payer Category Payer Medicare [id number] 2025 Unknown [id number] 2024 Self-pay 2024 Unknown [id number] Unknown 1929 2.16.8 [id number] Unknown [id number] 2.16.8 [id number] Unknown [id number] 2.16.8 [id number] Unknown [id number] 2.16.8 [id number] Unknown [id number] 2.16.8 [id number] Unknown [id number] 2.16.8 [id number] Unknown [id number] 2.16.8 [id number] Unknown [id number] 2.16.8 [id number] Social History Date Type Detail Facility Start: 05-12-2023 Tobacco smoking stat [facility] Unknown if ever smoked [facility] Start: 1960 Sex Assigned At Male [facility] Start: 04-20-2025 End: 04-21-2025 Tobacco smoking status NHIS Smokes tobacco daily (finding) [facility] Goals Date Patient Goal Desired Activity /State Functional Status Date Assessment Result Facility 04-22-2025 Functional status [facility] Work Phone: 05-13-2023 Functional status [facility] Work Phone: Mental Status Date Assessment Result Facility 04-22-2025 Cognitive function Voice/Name [facility] Work Phone: 05-13-2023 Cognitive function Voice/Name [facility] Work Phone: Clinical Notes 05-12-2023 to 04-22-2025 Note Date & Type Note Facility 04-22-2025 Hospital Discharg e instructions Additional Instructions Date of Discharge: 04/22/25 [facility] Work Phone: 04-22-2025 Discharge summary Note Date/Time April 22, 2025 11:46am [facility] Medical Records Department [address] [place] [address] Discharge Summary 04/22/2512 MR#: [id number] Acct: [id number] Name: MELCHOR LYLE Rep #:[id number] : 1960 64 From: Luis Hernandez MD PCP: [facility] Status:ADM IN Location: [facility] [id number]- 1 Providers Date of Admission: 04/20/25 Date of Discharge: 04/22/25 Primary Care Physician: [facility] Reason For Visit: HYPXIA AND COPD EXACERBATION [...] is a 64-year-old male who presented to [facility] ED on 04/21/2025 with worsening shortness of breath and cough. 1. Acute hypoxia secondary to acute exacerbation of COPD ?Admitted to a monitored bed managed with bronchodilator treatment systemic steroid and antibiotics. Patient oxygen saturation on admission was 86% on roomair. Patient had previously been discharged home with home oxygen however due to high cost ([facility] did not, with patient continuous use of [...] Attending Provider: Luis Hernandez Primary Care Provider: [facility] Consulting Providers: Madiha Razo; Chino Sandoval Discharge [...] Self Care Charges/Coding Visit Charges Inpatient E&M: 68160 Disch Hosp >30min 04/22/25 1146 <Electronically signed by Luis Hernandez MD> Cosigner Signature (if applicable): CC: Dr. Luis Hernandez MD; [facility]~ Signed [facility] Work Phone: 1(280) 832-624308-05-2025 Consult note Author Lakeshia Hope [facility] Note Date/Time April 22, 2025 11: 05am [facility] Medical Records Department [address] [place] [address] Counseling Note - Pharmacy 04/22/25 1104 MR#: [id number] Acct: [id number] Name: MELCHOR LYLE Kathrine Rep #:[id number] : 1960 64 From: Lakeshia Hope PCP: [facility] Status:ADM IN Y Location: [facility] [id number]- 1 Pharmacy [facility] Counseling Pharmacy Service has performed discharge medication [...] Signature (if applicable): Date CC: ~ Signed [facility] Work Phone: 1([phone]) 111-842008-05-2025 Progress note Author Luis Hernandez [facility] Note Date/Time April 22, 2025 11: 00am [facility] Medical Records Department [address] [place] [address] Progress Note - Hospitalist 04/22/25 1058 MR#: [id number] Acct: [id number] Name: VALDOMELCHOR Kathrine Rep #:[id number] : 1960 64 From: Luis Hernandez MD PCP: [facility] Status:ADM IN Location: [place] [address] Reason for Visit Chief Complaint: Increasing SOB Subjective Subjective Patient is a 64-year-old male who presented to [facility] ED on 04/21/2025 with worsening shortness [...] is a 64-year-old male who presented to [facility] ED on 04/21/2025 with worsening shortness [...] 36 Minutes Charges/Coding Visit Charges Inpatient E&M: 36022 Subs Hosp L2 Reason for DC delay: Pt / family delay 04/22/25 1100 <Electronically signed by Luis Hernandez MD> Cosigner Signature (if applicable): CC: ~ Signed [facility] Work Phone: [phone] Discharge summary [facility] Medical Records Department [address] [place] [address] Discharge Summary 04/22/25 0912 MR#: [id number] Acct: [id number] Name: MELCHOR LYLE Rep #:[id number] : 1960 64 From: Luis Hernandez MD PCP: [facility] Status[facility]M [facility] Providers Date of Admission: 04/20/25 Date of Discharge: 04/22/25 Primary Care Physician: [facility] Reason For Visit: HYPXIA AND COPD EXACERBATION [...] is a 64-year-old male who presented to [facility] ED on 04/21/2025 with worsening shortness [...] Attending Provider: Luis Hernandez Primary Care Provider: [facility] Consulting Providers: Madiha Razo; Chino Sandoval Discharge [...] mg PO DAILY Referrals / Follow Up: [facility] [Primary Care Provider] - Disposition Disposition (needs filled in before D/C Order can be placed): Home, Self Care Charges/Coding Visit Charges Inpatient E&M: 56455 Disch Hosp >30min 04/22/25 1146 Cosigner Signature (if applicable): CC: Dr. Luis Hernandez MD; [facility]~ Signed [facility]08-05-2025 Consult note [facility] Medical Records Department [address] [place] [address] Counseling Note - Pharmacy 04/22/25 1104 MR#: [id number] Acct: [id number] Name: MELCHOR LYLE Rep #:[id number] : 1960 64 From: Lakeshia Hope PCP: [facility] Status:ADM IN Y Location: [facility] [id number]- 1 Pharmacy [place] Med Rec Counseling Pharmacy Service has performed [...] Signature (if applicable): Date CC: ~ Signed [facility]08-05-2025 Progress note [facility] Medical Records Department [address] [place] [address] Progress Note - Hospitalist 04/22/25 1058 MR#: [id number] Acct: [id number] Name: MELCHOR LYLE Rep #:[id number] : 1960 64 From: Luis Hernandez MD PCP: [facility] Status:ADM IN Location: [place] [address]- 1 Reason for Visit Chief Complaint: Increasing SOB Subjective Subjective Patient is a 64-year-old male who presented to [facility] ED on 04/21/2025 with worsening shortness [...] is a 64-year-old male who presented to [facility] ED on 04/21/2025 with worsening shortness [...] 36 Minutes Charges/Coding Visit Charges Inpatient E&M: 26367 Subs Hosp L2 Reason for DC delay: Pt / family delay 04/22/25 1100 Cosigner Signature (if applicable): CC: ~ Signed [facility]08-05-2025 [facility] Medical Records Department [address] [place] [address] Discharge Summary 04/22/25911 MR#: [id number] Acct: [id number] Name: MELCHOR LYLE Rep #: [id number] : 1960 64 From: Luis Hernandez MD PCP: [facility] Status:ADM IN Location: [facility] [id number] Providers Date of Admission: 04/20/25 Date of Discharge: 04/22/25 Primary Care Physician: [facility] Reason For Visit: HYPXIA AND COPD EXACERBATION [...] is a 64-year-old male who presented to [facility] ED on 04/21/2025 with worsening shortness [...] Attending Provider: Luis Hernandez Primary Care Provider: [facility] Consulting Providers: Madiha Razo; Chino Sandoval Discharge [...] Care Charges/Coding Visit Charges Inpatient E M: 06061 Disch Hosp >30min 04/22/ (more content not included)...[facility]08-04-2025 Progress note Author Chino Sandoval [facility] Note Date/Time April 21, 2025 2:5 6pm [facility] Medical Records Department [address] [place] [address] Progress Note - Hospitalist 04/21/25 1054 MR#: [id number] Acct: [id number] Name: MELCHOR LYLE Kathrine Rep #:[id number] : 1960 64 From: Chino castano DO PCP: [facility] Status:ADM IN Location: [place] [address] Reason for Visit Chief Complaint: Increasing SOB [...] 80.1 H, Lymph % (Auto) 9.1 L, [place] % (Auto) 7.4, Eos % (Auto) 2.3, [...] 90.8 H, Lymph % (Auto) 6.4 L, [place] % (Auto) 2.0, Eos % (Auto) 0.1, [...] 12:14 IMPRESSION: No Acute Findings. Reading Location: PSYCHIATRIC Physical Exam Const alert, oriented x3 and [...] is a 64-year-old male who presented to [facility] ED on 04/21/2025 with worsening shortness [...] years for COPD exacerbations. Follows with the PA. Oxygen saturations typically run in the low 90s at rest and drop to the mid to high 80swith exertion at home. Has previously been discharged with home oxygen but due to high cost (PA did not cover as he is a [...] 35 minutes. Charges/Coding Visit Charges Inpatient E&M: 97397 Subs Hosp L2 04/21/25 9835 <Electronically signed by Chino Sandoval DO> Cosigner Signature (if applicable): CC: ~ Signed [facility] Work Phone: [phone] [id number] Progress note [facility] Medical Records Department [address] [place] [address] Progress Note - Hospitalist 04/21/25 1054 MR#: [id number] Acct: [id number] Name: MELCHOR LYLE Rep #:[id number] : 1960 64 From: Chino castano DO PCP: [facility] Status:ADM IN Location: [place] [address] Reason for Visit Chief Complaint: Increasing SOB [...] 80.1 H, Lymph % (Auto) 9.1 L, [place] % (Auto) 7.4, Eos % (Auto) 2.3, [...] 90.8 H, Lymph % (Auto) 6.4 L, [place] % (Auto) 2.0, Eos % (Auto) 0.1, [...] 12:14 IMPRESSION: No Acute Findings. Reading Location: [id number] Physical Exam Const alert, oriented x3 and [...] is a 64-year-old male who presented to [facility] ED on 04/21/2025 with worsening shortness [...] years for COPD exacerbations. Follows with the PA. Oxygen saturations typically run in the low 90s at rest and drop to the mid to high 80swith exertion at home. Has previously been discharged with home oxygen butdue to high cost (PA did not cover as he is a [...] 35 minutes. Charges/Coding Visit Charges Inpatient E&M: 33591 Subs Hosp L2 04/21/25 1031 Cosigner Signature (if applicable): CC: ~ Signed [facility]08-03-2025 Discharge summary Author Minal Castro [facility] Note Date/Time April 20, 2025 9:4 0pm [facility] Medical Records Department [address] [place] [address] Emergency Department Summary 04/20/25 MR#: [id number] Acct: [id number] Name: MELCHOR LYLE Rep #:[id number] : 1960 64 From: Minal JUÁREZ PCP: [facility] Status:ADM IN Location: [place] [id number] [facility] <JEY Sheppard - Last Filed: 04/20/25 13:50> [...] did not approve it for further use. [facility] <JEY Sheppard - Last Filed: 04/20/25 13:50> [facility] Medical History (Updated 04/20/25 @ 16:03 by Arielle Diehl) Kidney stones Smoker Hypertension Home Medications ?Medication ?Instructions ?Recorded ?Last Taken ?Type diphenhydramine HCl 25 mg tablet 50 mg PO BID PRN THUY RGIES 05/11/23 04/19/25 History (Allergy) losartan 50 mg tablet (Cozaar) 50 mg PO DAILY BLOOD [place] ESSURE 05/11/23 04/19/25 History albuterol sulfate 90 [...] every day smoker tobacco type: pipe ROS <JYE Sheppard - Last Filed: 04/20/25 13:50> ROS [...] 80.1 H Lymph % (Auto) 9.1 L [place] % (Auto) 7.4 Eos % (Auto) 2.3 [...] 12:14 IMPRESSION: No Acute Findings. Reading Location: PSYCHIATRIC ED attending interpretation of 1 view chest [...] 80.1 H Lymph % (Auto) 9.1 L [place] % (Auto) 7.4 Eos % (Auto) 2.3 [...] 12:14 IMPRESSION: No Acute Findings. Reading Location: [id number] Discharge Plan Dx/Rx/DC Orders Clinical Impression: Acute exacerbation of chronic obstructive pulmonary disease (COPD), Hypoxia, Tobacco use Disposition Disposition: Acute Care Hospital [facility] Discharge Date/Time: 04/20/25 15:54 What to do if you have Problems For any increased pain, shortness of breath, bleeding, nausea or vomiting, chestpain, or any unexpected problems, contact your Primary Care Provider. Call [facility] ([phone]) or report to the closest Emergency Room. Call 911 if necessary. 04/20/25 1350 <Electronically signed by Minal JUÁREZ> Cosigner Signature (if applicable): 04/20/25 2140 <Electronically signed by Oneal Ng DO> CC: [facility] ~ Signed [facility] Work Phone: 1(663) 400-962708-03-2025 Discharge summary [facility] Medical Records Department [address] [place] [address] Emergency Department Summary 04/20/25 MR#: [id number] Acct: [id number] Name: MELCHOR LYLE Rep #:[id number] : 1960 64 From: Minal JUÁREZ PCP: [facility] Status:ADM IN Location: [place] [address] HPI History of Present Illness Chief Complaint: [...] was discharged with O2 but then his PA insurance did not a pprove it for further use. [facility] Medical History (Updated 04/20/25 @ 16:03 by Arielle Diehl) Kidney stones Smoker Hypertension Home Medications ?Medication ?Instructions ?Recorded ?Last Taken ?Type diphenhydramine HCl 25 mg tablet 50 mg PO BID PRN THUY RGIES 05/11/23 04/19/25 History (Allergy) losartan 50 mg tablet (Cozaar) 50 mg PO DAILY BLOOD [place] ESSURE 05/11/23 04/19/25 History albuterol sulfate 90 [...] 80.1 H Lymph % (Auto) 9.1 L [place] % (Auto) 7.4 Eos % (Auto) 2.3 [...] 12:14 IMPRESSION: No Acute Findings. Reading Location: PSYCHIATRIC ED attending interpretation of 1 view chest [...] 80.1 H Lymph % (Auto) 9.1 L [place] % (Auto) 7.4 Eos % (Auto) 2.3 [...] 12:14 IMPRESSION: No Acute Findings. Reading Location: PSYCHIATRIC Discharge Plan Dx/Rx/DC Orders Clinical Impression: Acute exacerbation of chronic obstructive pulmonary disease (COPD), Hypoxia, Tobacco use Disposition Disposition: [facility] Discharge Date/Time: 04/20/25 15:54 What to do if you have Problems For any increased pain, shortness of breath, bleeding, nausea or vomiting, chestpain, or any unexpected problems, contact your Primary Care Provider. Call [facility] ([phone]) or report tothe closest Emergency Room. Call 911 if necessary. 04/20/25 1350 Cosigner Signature (if applicable): 04/20/25 2140 CC: [facility] ~ Signed [facility]08-03-2025 History and physical note Author Madiha Razo [facility] Note Date/Time April 20, 2025 3:3 0pm [facility] Medical Records Department [address] [place] [address] H&P Exam - Hospitalist 04/20/25 1434 MR#: [id number] Acct: [id number] Name: MELCHOR LYLE Rep #:[id number] : 1960 64 From: Madiha Razo MD PCP: [facility] Status:ADM IN Location: [facility] [id number]- 1 HPI - General General Date of Admission: 04/20/25 Date of Service: 04/20/25 Chief Complaint: Increasing SOB HPI Narrative MELCHOR LYLE, is a 64 M with a history of suspected COPD, tobacco use, hypertension and seasonal allergies who presented to [facility] ED 04/20/2025 due to increasing shortness [...] and steroids but is still significantly struggling. [facility] Medical History Hypertension Home Medications ?Medication ?Instructions [...] 80.1 H, Lymph % (Auto) 9.1 L, [place] % (Auto) 7.4, Eos % (Auto) 2.3, [...] 12:14 IMPRESSION: No Acute Findings. Reading Location: PSYCHIATRIC Assessment & Plan Assessment/Plan (1) Acute exacerbation [...] Razo MD Charges/Coding Visit Charges Inpatient E&M: 30671 Init Hosp L2 04/20/25 1530 <Electronically signed by Madiha Razo MD> Cosigner Signature (if applicable): CC: Dr. Madiha Razo MD; [facility]~ Signed [facility] Work Phone: 1(224) 566-300308-03-2025 Evaluation note* Diagnosis Onset Date Resolution Status Admit Date Hypoxia acute April 20 2:34pm Acute exacerbation of chroni c obstructive pulmonary disease (COPD) chronic April 20, 2025 2:34pm [facility] Work Phone: 1(802) 300-932408-03-2025 History and physical note [facility] Medical Records Department [address] [place] [address] H&P Exam - Hospitalist 04/20/25 1434 MR#: [id number] Acct: [id number] Name: MELCHOR LYLE Rep #:[id number] : 1960 64 From: Madiha Razo MD PCP: [facility] Status:ADM IN Location: [facility] [id number]- 1 HPI - General General Date of Admission: 04/20/25 Date of Service: 04/20/25 Chief Complaint: Increasing SOB HPI Narrative MELCHOR LYLE, is a 64 M with a history of suspected COPD, tobacco use, hypertension and seasonal allergies who presented to [facility] ED 04/20/2025 due to increasing shortness [...] and steroids but is still significantly struggling. [facility] Medical History Hypertension Home Medications ?Medication ?Instructions [...] 80.1 H, Lymph % (Auto) 9.1 L, [place] % (Auto) 7.4, Eos % (Auto) 2.3, [...] 12:14 IMPRESSION: No Acute Findings. Reading Location: PSYCHIATRIC Assessment & Plan Assessment/Plan (1) Acute exacerbation [...] Razo MD Charges/Coding Visit Charges Inpatient E&M: 55660 Init Hosp L2 04/20/25 1530 Cosigner Signature (if applicable): CC: Dr. Madiha Razo MD; [facility]~ Signed [facility]08-03-2025 Radiology Diagnostic study note [facility] Imaging Services [address] [place] [address] Chest 1 View (Portable) MR#: [id number] Acct: [id number] Name: VALDOMELCHOR Rep #: [id number] : 1960 M 64 From: Radha Ortiz MD PCP: [facility] Status: PRE ER Study:Chest 1 View (Portable) Date of Exam: 04/20/25 Exam# [id number] Ordering Dr: Minal Escobedo PROCEDURE: CHEST 1 [...] (Portable) IMPRESSION: No Acute Findings. Reading Location: [id number] CC: JEY Sheppard; [facility] ~ Mine Analyst: Signed [facility]09-11-2024 [facility] Medical Records Department [address] [place] [address] Discharge Summary 05/29/24 1252 MR#: [id number] Acct: [id number] Name: MELCHOR LYLE Rep #: [id number] : 1960 63 From: Madiha Razo MD PCP: [facility] Status:DIS IN Location: [facility] [id number] Providers Date of Admission: 05/27/24 Date of Discharge: 05/29/24 Primary Care Physician: [facility] Reason For Visit: COPD EXACERBATION Diagnosis [...] COPD and tobacco use who presented to [facility] ED 05/27/2024 with increasing shortness of [...] -For your continued congestion please obtain Mucinex jeoi-rix-ieylgvz to help with your congestion symptoms -Continue [...] 89.1 H, Lymph % (Auto) 6.7 L, [place] % (Auto) 3.0, Eos % (Auto) 0.0, [...] - Final 05/27/24 1 (more content not included)...[facility]08-26-2023 Progress note Author Linsey Spivey [facility] May 13, 2023 12:17pm Note Date/Time May 13, 2023 6: 22am [facility] Medical Records Department [address] [place] [address] Progress Note - Hospitalist 05/13/23 0621 MR#: [id number] Acct: [id number] Name: MELCHOR LYLE Rep #:[id number] : 1960 62 From: Linsey Spivey MD PCP: [facility] Status:ADM IN Location: MS3 [id number] Reason for Visit Reason for Visit: Diagnoses [...] appropriate follow-up and takehis medications with the PA PCP evaluation hopefully within the next 3 to 5 daysbut did request that PA be notified to facilitate further earlier follow-up. [...] use/Pipe Tobacco use who presents [facility] ED on 05/11/23 with dyspnea and wheezing [...] Patient reportedly living with his sister and ezjqgga-id-spg, notable poor hygiene in the ED with concern for bedbugs, case management/social work involved for discharge planning, PT and OT assessments also. #5. Tobacco Abuse: Encouraged cessation, inpatient consultation per RT, NR if desired. #6. DVT prophylaxis: Lovenox. #7. CODE STATUS: Full code. Charges/Coding Visit Charges Inpatient E&M: 80766 Subs Hosp L2 05/13/23 1217 <Electronically signed by Linsey Spivey MD> Cosigner Signature (if applicable): CC: ~ Signed [facility] Work Phone: 1(773) 513-343708-25-2023 Progress note Author [facility] May 12, 2023 3:42pm Note Date/Time May 12, 2023 7: 04am [facility] Medical Records Department [address] [place] [address] Progress Note - Hospitalist 05/12/23703 MR#: [id number] Acct: [id number] Name: MELCHOR LYLE Rep #:[id number] : 1960 62 From: Linsey Spivey MD PCP: [place] [place] Status:ADM IN Location: [place] [address]1 Reason for Visit Reason for Visit: Diagnoses [...] (Auto) 65.2, Lymph % (Auto) 17.7 L, [place] % (Auto) 8.6, Eos % (Auto) 7.0 [...] use/Pipe Tobacco use who presents to the [facility] ED on 05/11/23 with dyspnea and wheezing [...] Patient reportedly living with his sister and ypfpzxx-jc-fvk, notable poor hygiene in the ED with concern for bedbugs, case management/social work involved for discharge planning, PT and OT assessments also. #5. Tobacco Abuse: Encouraged cessation, inpatient consultation per RT, NR if desired. #6. DVT prophylaxis: Lovenox. #7. CODE STATUS: Full code. Charges/Coding Visit Charges Inpatient E&M: 70650 Subs Hosp L2 05/12/23 1542 <Electronically signed by Linsey Spivey MD> Cosigner Signature (if applicable): CC: ~ Signed [facility] Work Phone: 1(782) 391-177808-25-2023 Discharge summary Author Frederick Cervantes [facility] May 12, 2023 12:50am Note Date/Time May 11, 2023 1: 42pm [facility] Medical Records Department [address] [place] [address] Emergency Department Summary 05/11/23 MR#: [id number] Acct: [id number] Name: MELCHOR LLYE Rep #:[id number] : 1960 62 From: Frederick Lucia PCP: [facility] Status:ADM LYLA Location: [place] [address] HPI History of Present Illness Chief Complaint: [...] Recent immobilization, Recent surgery or Recent travel [facility] Medical History Hypertension Home [...] (Auto) 65.2 Lymph % (Auto) 17.7 L [place] % (Auto) 8.6 Eos % (Auto) 7.0 [...] sinus rhythm with a rate of 82. [place] interval, QRS interval, and QTc intervals were all normal. [place] was normal. There are no acute ST [...] pulmonary disease Disposition Disposition: Acute Care Hospital [facility] Discharge Date/Time: 05/11/23 19:34 What to do if you have Problems For any increased pain, shortness of breath, bleeding, nausea or vomiting, chestpain, or any unexpected problems, contact your Primary Care Provider. Call [facility] ([phone]) or report to the closest Emergency Room. Call 911 if necessary. 05/12/23 0050 <Electronically signed by Frederick Cervantes DO> Cosigner Signature (if applicable): CC: [facility] ~ Signed [facility] Work Phone: 1([phone]) 271-231008-25-2023 History and physical note [facility] May 11, 2023 11:29pm Note Date/Time May 11, 2023 4: 58pm [facility] Medical Records Department [address] [place] [address] H&P Exam - Hospitalist 05/11/23 1657 MR#: [id number] Acct: [id number] Name: MELCHOR LYLE Rep #:[id number] : 1960 62 From: Chino castano DO PCP: [place] [place] Status:ADM LYLA Location: [place] [address]21-1 HPI - General General Date of Admission: 05/11/23 Date of Service: 05/11/23 Chief Complaint: Shortness of breath, wheezing HPI Narrative MELCHOR LYLE is a 62 M with history of tobacco use and hypertension who presented to [facility] ED on 05/11/2023 with worsening shortness [...] interstitial prominence, no focal consolidationor acute findings. [facility] Medical History Hypertension Home Medications [...] (Auto) 65.2, Lymph % (Auto) 17.7 L, [place] % (Auto) 8.6, Eos % (Auto) 7.0 [...] tobacco use and hypertension who presented to [facility] ED on 05/11/2023 with worsening shortness [...] Patient reportedly lives with his sister and fbrrrok-qf-xuk. His sister has severe COPD and wears chronic oxygen at home. Xpsqzyh-nr-uda does a lot of tasks around the [...] 55 minutes. Charges/Coding Visit Charges Inpatient E&M: 03221 Init Hosp L2 05/11/23 0172 <Electronically signed by Chino Sandoval DO> Cosigner Signature (if applicable): CC: Dr. Chino Sandoval DO; [facility]~ Signed [facility] Work Phone: Discharge summary Author Linsey Spivey [facility] May 13, 2023 12:19pm Note Date/Time May 13, 2023 12 :12pm [facility] Medical Records Department [address] [place] [address] Instructions for Home/Discharge Instructions 05/13/23 1211 MR#: [id number] Acct: [id number] Name: MELCHOR LYLE Rep #:[id number] : 1960 62 From: Linsey Spivey MD PCP: [place] [place] Status:ADM IN Discharge Instructions Diet Discharge [...] Attending Provider: Linsey Spivey Primary Care Provider: [place] [place] Consulting Providers: Chino Sandoval Instructions Patient [...] Spivey MD CC: Dr. Chino Sandoval DO; [facility] ~ Signed ADDENDUM by Dr. Linsey Spivey MD on 05/13/23 at 1219 ECHO resulted prior to discharge with noted LVEF 65%, mild 1+ at MARY, mildly dilated aortic root. 05/13/23 1219<Electronically signed by Linsey Spivey MD>Linsey Spivey MD cc: Dr. Chino Sandoval DO; [facility] ~* Signed [facility] Work Phone: Discharge summary Author Linsey Spivey [facility] May 13, 2023 12:22pm Note Date/Time May 13, 2023 12 :18pm [facility] Medical Records Department [address] [place] [address] Discharge Summary 05/13/231216 MR#: [id number] Acct: [id number] Name: VALDOMELCHOR Rep #:[id number] : 1960 62 From: Linsey Spivey MD PCP: [place] [place] Status:ADM IN Location: [place] [address] Providers Date of Admission: 05/12/23 Date of Discharge: 05/13/23 Primary Care Physician: [facility] Reason For Visit: COPD EXACERBATION Diagnosis [...] use/Pipe Tobacco use who presented [facility] ED on 05/11/23 with dyspnea and wheezing [...] 90.1 H, Lymph % (Auto) 7.2 L, [place] % (Auto) 1.5, Eos % (Auto) 0.0, [...] Attending Provider: Linsey Spivey Primary Care Provider: [facility] Consulting Providers: Chino Sandoval Instructions Patient Instructions: [...] mg PO DAILY Referrals / Follow Up: [facility] [Primary Care Provider] - (Please follow-up within 3-5 days to review admission.) Disposition Disposition (needs filled in before D/C Order can be placed): Home, Self Care Charges/Coding Visit Charges Inpatient E&M: 95006 Disch Hosp >30min 05/13/23 1222 <Electronically signed by Linsey Spivey MD> Cosigner Signature (if applicable): CC: Dr. Linsey Spivey MD; [facility]~ Signed [facility] Work Phone: Evaluation note* Diagnosis Onset Date Resolution Status Hypoxia acute Acute exacerbation of chroni c obstructive pulmonary disease chronic [facility] Work Phone: Evaluation note* Diagnosis Onset Date Resolution Status Admit Date Acute exacerbation of chroni c obstructive pulmonary disease (COPD) chronic April 20, 2025 2:34pm [facility] Work Phone: History and physical note Author Madiha Razo [facility] Note Date/Time April 20, 2025 3:3 0pm [facility] Medical Records Department [address] [place] [address] H&P Exam - Hospitalist 04/20/25 1434 MR#: [id number] Acct: [id number] Name: MELCHOR LYLE Rep #:[id number] : 1960 64 From: Madiha Razo MD PCP: [facility] Status:ADM IN Location: [facility] [id number]- 1 HPI - General General Date of Admission: 04/20/25 Date of Service: 04/20/25 Chief Complaint: Increasing SOB HPI Narrative MELCHOR LYLE, is a 64 M with a history of suspected COPD, tobacco use, hypertension and seasonal allergies who presented to [facility] ED 04/20/2025 due to increasing shortness [...] and steroids but is still significantly struggling. [facility] Medical History Hypertension Home Medications ?Medication ?Instructions [...] 80.1 H, Lymph % (Auto) 9.1 L, [place] % (Auto) 7.4, Eos % (Auto) 2.3, [...] 12:14 IMPRESSION: No Acute Findings. Reading Location: PSYCHIATRIC Assessment & Plan Assessment/Plan (1) Acute exacerbation [...] Razo MD Charges/Coding Visit Charges Inpatient E&M: 55743 Init Hosp L2 04/20/25 1530 <Electronically signed by Madiha Razo MD> Cosigner Signature (if applicable): CC: Dr. Madiha Razo MD; [facility]~ Signed [facility] Work Phone: Reason for referral (narrative)No reason for referral information [facility]WC[facility] Work Phone: Chief Complaint and Reason for [...] Will No May 11 8:15pm Power of Deblocker No May 11 023 8:15pm Advance Directive Response Recorded Date/ Time Do you have a Healthcare Power of Deblocker? No April 20, 2025 12:24pm Advance Directive Response Recorded Date/ Time Do you have a Healthcare Power of Deblocker? No April 20, 2025 3:42pm Summary Purpose Family History No Family History Records Found Additional Source Comments Care Teams (unrecognized sec tion and content) Team Status: Active Member Role/Relationship Status Dates [facility] Primary Care Provider Active Team Status: Inactive Member Role/Relationship Status Dates [facility] Primary [facility] Provider Active Start: April 20, 2025 End: [...] Team Status: Active Member Role/Relationship Status Dates [facility] Provider Active Start: April 21, 2025 Dr. [...] Team Status: Active Member Role/Relationship Status Dates [facility] Primary Care Provider Active Start: April 22, [...] Team Status: Active Member Role Status Dates [facility] Primary Care Provider Active Team Status: Active Member Role Status Dates [facility] Primary Care Provider Active Dr. Frederick Cervantes DO Emergency Provider Active Dr. Chino Sandoval , DO Admit Provi lynne, Attending Provider, Other Provider Active Team Status: Active Member Role Status Dates [facility] Primary Care Provider Active Dr. Tay Huggins MD Attending Provider Active Team Status: Active Member Role Status Dates [facility] Primary Care Provider Active Dr. Frederick Cervantes , DO Emergency Provider Active Dr. Chino Sandoval DO Admit Provider, Other Pro vider Active Dr. Linsey Spivey MD Attending Provider, Other Prov ider Active Team Status: Inactive Member Role Status Dates [facility] Primary Care Provider Active Dr. Frederick Cervantes DO Emergency Provider Active Dr. Chino Sandoval DO Admit Provider, Other Pro vider Active Dr. Linsey Spivey MD Attending Provider Active Team Status: Active Member Role/Relationship Status Dates [facility] Primary Care Provider Active Start: April 20, [...] section and content) DATE CREATED AUTHOR 05/01/2025 [facility] FOR RECORDS PERTAINING TO PATIENTS WHO ARE [...] BE BASED ON THE PRIMARY CLINICAL RECORDS. [employer] [facility]. provides no warranty or guarantee of the accuracy or completeness of information in this document.
[2025-05-19 01:20] LABS: Magnesium 2.3 mg/dL (1.5-2.2)
--- OUTSIDE RECORDS SUMMARY | 2025-05-19 01:37 | XMS RPT_ITS | CCD ---
Author Organization [facility] Care Team Providers Care Corporate Financial Analyst Name Role Phone [facility], [place] Primary Care Provider Dr. Frederick Talley Emergency Provider Dr. Chino Sandoval Admit Provider [phone] Chino Sandoval Attending Provider Dr. Chino Sandoval Other Provider [phone] Tay Huggins Attending Provider Dr. Linsey Spivey Attending Provider Dr. Linsey Spivey Other Provider [phone] [facility], [place] Primary Care Provider Dr. Oneal Mitchell DO Emergency Provider Dung TERAN, Dr. Cleary Admit Provider Dr. Madiha Razo MD Attending Provider [phone] Madiha Razo MD Other Provider [phone] Dr. Luis Hernandez MD Attending Provider Unavaila Dr. Chino Mac DO Other Provider [facility], [place] Primary Care Provider Dr. Chino Brooks DO Attending Provider Dr. Luis Hernandez MD Other Provider Unavailable Dung, Madiha Consulting [facility] [place] [facility] Luis Hernandez Attending Unavailable Madiha Rzao Admitting Unavailable Chino Sandoval Consulting [facility] [place] [facility] Unavailable Razo, Madiha Admitting Unavailable RazoMadiha Attending Unavailable Razo, Madiha Admitting [facility] [place] [facility] Un[facility] Razo, Madiha Consulting Unavailable Razo, Madiha Attending Unavailable Razo, Madiha Admitting [facility] [place] [facility] Unavailable Razo, Madiha Consulting Unavailable Madiha Razo Attending [facility]available [facility] [place] [facility] Unavailable Razo, Madiha Consulting Unavailable [place], Luis Attending Unavailable Madiha Razo Admitting Unavailable Chino Sandoval Consulting Unavailable Luis Hernandez Consulting Unavailable Chino Sandoval Attending Unavailable Madiha Razo Attending Unavailable Allergies Allergy Classification Reported Allergen(s) Allergy Type Date of Onset Reaction(s) Facility (3 sources) POISON DENNIS EXTRACT Drug Allergy 05-11-2023 Rash [facility] (1 source) poison dennis extract Drug allergy (disorder) 05-27-2024 [facility] Repository Medications Current Medications Medication [...] Profile (BMP )on 04-25-2025 BUN Normal 01-04 [facility] Comment on above: Result Comment: Canc elled via OM: Order cancelled - Patient discharged Performed By: #### L 500.2500, L100.0500 #### [facility] [address] [place], [place], [address] BUN/CRE Normal 07-07 [facility] Comment on above: Result Comment: Canc elled via OM: Order cancelled - Patient discharged Performed By: #### L 500.2500, L100.0500 #### [facility] [address] [place], [address] Calcium Normal 7.6-11.0 [facility] Comment on above: Result Comment: Canc elled via OM: Order cancelled - Patient discharged Performed By: #### L 500.2500, L100.0500 #### [facility] [address] [place], [address] CL Normal 98-108 [facility] Comment on above: Result Comment: Canc elled via OM: Order cancelled - Patient discharged Performed By: #### L 500.2500, L100.0500 #### [facility] [address] [place], [address] CO2 Normal 21.0-32.0 [facility] Comment on above: Result Comment: Canc elled via OM: Order cancelled - Patient discharged Performed By: #### L 500.2500, L100.0500 #### [facility] [address] [place], [address] CREAT,SERUM Normal 0.70-1.20 [facility] Comment on above: Result Comment: Canc elled via OM: Order cancelled - Patient discharged Performed By: #### L 500.2500, L100.0500 #### [facility] [address] [place], [address] eGFR Normal >60 [facility] Comment on above: Result Comment: Canc elled via OM: Order cancelled - Patient discharged Performed By: #### L 500.2500, L100.0500 #### [facility] [address] [place], [address] GAP Normal 5-15 [facility] Comment on above: Result Comment: Canc elled via OM: Order cancelled - Patient discharged Performed By: #### L 500.2500, L100.0500 #### [facility] [address] [place], [address] GLU Normal 70-99 [facility] Comment on above: Result Comment: Canc elled via OM: Order cancelled - Patient discharged Performed By: #### L 500.2500, L100.0500 #### [facility] [address] [place], [address] Potassium Normal 3.3-5.1 [facility] Comment on above: Result Comment: Canc elled via OM: Order cancelled - Patient discharged Performed By: #### L 500.2500, L100.0500 #### [facility] [address] [place], [address] Basic Metabolic Profile (BMP) Normal 133-145 [facility] Comment on above: Result Comment: Canc elled via OM: Order cancelled - Patient discharged Performed By: #### L 500.2500, L100.0500 #### [facility] [address] [place], [address] CBC-Complete Blood Cnt No Di ffon 04-25-2025 HCT Normal 40-54 [facility] Comment on above: Result Comment: Canc elled via OM: Order cancelled - Patient discharged Performed By: #### L 500.2500, L100.0500 #### [facility] [address] [place], [address] HGB Normal 13.0-16.5 [facility] Comment on above: Result Comment: Canc elled via OM: Order cancelled - Patient discharged Performed By: #### L 500.2500, L100.0500 #### [facility] [address] [place], [address] MCH Normal 27.0-32.0 [facility] Comment on above: Result Comment: Canc elled via OM: Order cancelled - Patient discharged Performed By: #### L 500.2500, L100.0500 #### [facility] [address] [place], [address] MCHC Normal 32-36 [facility] Comment on above: Result Comment: Canc elled via OM: Order cancelled - Patient discharged Performed By: #### L 500.2500, L100.0500 #### [facility] [address] [place], [address] MCV Normal 80-94 [facility] Comment on above: Result Comment: Canc elled via OM: Order cancelled - Patient discharged Performed By: #### L 500.2500, L100.0500 #### [facility] [address] [place], [address] PLT Normal 150-450 [facility] Comment on above: Result Comment: Canc elled via OM: Order cancelled - Patient discharged Performed By: #### L 500.2500, L100.0500 #### [facility] [address] [place], [address] RBC Normal 4.6-6.2 [facility] Comment on above: Result Comment: Canc elled via OM: Order cancelled - Patient discharged Performed By: #### L 500.2500, L100.0500 #### [facility] [address] [place], [address] RDW CV Normal 11.6-14.6 [facility] Comment on above: Result Comment: Canc elled via OM: Order cancelled - Patient discharged Performed By: #### L 500.2500, L100.0500 #### [facility] [address] [place], [address] RDW SD Normal 35.1-43.9 [facility] Comment on above: Result Comment: Canc elled via OM: Order cancelled - Patient discharged Performed By: #### L 500.2500, L100.0500 #### [facility] [address] [place], [address] WBC Normal 4.4-11.0 [facility] Comment on above: Result Comment: Canc elled via OM: Order cancelled - Patient discharged Performed By: #### L 500.2500, L100.0500 #### [facility] [address] [place], [address] Basic Metabolic Profile (BMP )on 04-24-2025 BUN Normal 4-19 [facility] Comment on above: Result Comment: Canc elled via OM: Order cancelled - Patient discharged Performed By: #### L 500.2500, L100.0500 #### [facility] [address] [place], [address] BUN/CRE Normal 10-20 [facility] Comment on above: Result Comment: Canc elled via OM: Order cancelled - Patient discharged Performed By: #### L 500.2500, L100.0500 #### [facility] [address] [place], [address] Calcium Normal 7.6-11.0 [facility] Comment on above: Result Comment: Canc elled via OM: Order cancelled - Patient discharged Performed By: #### L 500.2500, L100.0500 #### [facility] [address] [place], [address] CL Normal 98-108 [facility] Comment on above: Result Comment: Canc elled via OM: Order cancelled - Patient discharged Performed By: #### L 500.2500, L100.0500 #### [facility] [address] [place], [address] CO2 Normal 21.0-32.0 [facility] Comment on above: Result Comment: Canc elled via OM: Order cancelled - Patient discharged Performed By: #### L 500.2500, L100.0500 #### [facility] [address] [place], [address] CREAT,SERUM Normal 0.70-1.20 [facility] Comment on above: Result Comment: Canc elled via OM: Order cancelled - Patient discharged Performed By: #### L 500.2500, L100.0500 #### [facility] [address] [place], [address] eGFR Normal >60 [facility] Comment on above: Result Comment: Canc elled via OM: Order cancelled - Patient discharged Performed By: #### L 500.2500, L100.0500 #### [facility] [address] [place], [address] GAP Normal 5-15 [facility] Comment on above: Result Comment: Canc elled via OM: Order cancelled - Patient discharged Performed By: #### L 500.2500, L100.0500 #### [facility] [address] [place], [address] GLU Normal 70-99 [facility] Comment on above: Result Comment: Canc elled via OM: Order cancelled - Patient discharged Performed By: #### L 500.2500, L100.0500 #### [facility] [address] [place], [address] Potassium Normal 3.3-5.1 [facility] Comment on above: Result Comment: Canc elled via OM: Order cancelled - Patient discharged Performed By: #### L 500.2500, L100.0500 #### [facility] [address] [place], [address] Basic Metabolic Profile (BMP) Normal 133-145 [facility] Comment on above: Result Comment: Canc elled via OM: Order cancelled - Patient discharged Performed By: #### L 500.2500, L100.0500 #### [facility] [address] [place], [address] CBC-Complete Blood Cnt No Di ffon 04-24-2025 HCT Normal 40-54 [facility] Comment on above: Result Comment: Canc elled via OM: Order cancelled - Patient discharged Performed By: #### L 500.2500, L100.0500 #### [facility] [address] [place], [address] HGB Normal 13.0-16.5 [facility] Comment on above: Result Comment: Canc elled via OM: Order cancelled - Patient discharged Performed By: #### L 500.2500, L100.0500 #### [facility] [address] [place], [address] MCH Normal 27.0-32.0 [facility] Comment on above: Result Comment: Canc elled via OM: Order cancelled - Patient discharged Performed By: #### L 500.2500, L100.0500 #### [facility] [address] [place], [address] MCHC Normal 32-36 [facility] Comment on above: Result Comment: Canc elled via OM: Order cancelled - Patient discharged Performed By: #### L 500.2500, L100.0500 #### [facility] [address] [place], [address] MCV Normal 80-94 [facility] Comment on above: Result Comment: Canc elled via OM: Order cancelled - Patient discharged Performed By: #### L 500.2500, L100.0500 #### [facility] [address] [place], [address] PLT Normal 150-450 [facility] Comment on above: Result Comment: Canc elled via OM: Order cancelled - Patient discharged Performed By: #### L 500.2500, L100.0500 #### [facility] [address] [place], [address] RBC Normal 4.6-6.2 [facility] Comment on above: Result Comment: Canc elled via OM: Order cancelled - Patient discharged Performed By: #### L 500.2500, L100.0500 #### [facility] [address] [place], [address] RDW CV Normal 11.6-14.6 [facility] Comment on above: Result Comment: Canc elled via OM: Order cancelled - Patient discharged Performed By: #### L 500.2500, L100.0500 #### [facility] [address] [place], [address] RDW SD Normal 35.1-43.9 [facility] Comment on above: Result Comment: Canc elled via OM: Order cancelled - Patient discharged Performed By: #### L 500.2500, L100.0500 #### [facility] [address] [place], [address] WBC Normal 4.4-11.0 [facility] Comment on above: Result Comment: Canc elled via OM: Order cancelled - Patient discharged Performed By: #### L 500.2500, L100.0500 #### [facility] [address] [place], [address] CBC-Complete Blood Cnt No Di ffon 04-23-2025 HCT Normal 40-54 [facility] Comment on above: Result Comment: Canc elled via OM: Order cancelled - Patient discharged Performed By: #### L 100.0500 #### [facility] [address] [place], [address] HGB Normal 13.0-16.5 [facility] Comment on above: Result Comment: Canc elled via OM: Order cancelled - Patient discharged Performed By: #### L 100.0500 #### [facility] [address] [place], [address] MCH Normal 27.0-32.0 [facility] Comment on above: Result Comment: Canc elled via OM: Order cancelled - Patient discharged Performed By: #### L 100.0500 #### [facility] [address] [place], [address] MCHC Normal 32-36 [facility] Comment on above: Result Comment: Canc elled via OM: Order cancelled - Patient discharged Performed By: #### L 100.0500 #### [facility] [address] [place], [address] MCV Normal 80-94 [facility] Comment on above: Result Comment: Canc elled via OM: Order cancelled - Patient discharged Performed By: #### L 100.0500 #### [facility] [address] [place], [address] PLT Normal 150-450 [facility] Comment on above: Result Comment: Canc elled via OM: Order cancelled - Patient discharged Performed By: #### L 100.0500 #### [facility] [address] [place], [address] RBC Normal 4.6-6.2 [facility] Comment on above: Result Comment: Canc elled via OM: Order cancelled - Patient discharged Performed By: #### L 100.0500 #### [facility] [address] [place], [address] RDW CV Normal 11.6-14.6 [facility] Comment on above: Result Comment: Canc elled via OM: Order cancelled - Patient discharged Performed By: #### L 100.0500 #### [facility] [address] [place], [address] RDW SD Normal 35.1-43.9 [facility] Comment on above: Result Comment: Canc elled via OM: Order cancelled - Patient discharged Performed By: #### L 100.0500 #### [facility] [address] [place], [address] WBC Normal 4.4-11.0 [facility] Comment on above: Result Comment: Canc elled via OM: Order cancelled - Patient discharged Performed By: #### L 100.0500 #### [facility] [address] [place], [address] Respiratory Cultureon 2024 RESPC List Antibiotics Last 48 Hours? see mar Mixed normal respiratory calixto. No Streptococcus pneumoniae, beta-hemolytic Streptococcus or Staphylococcus aureus isolated. Normal [facility] Comment on above: Performed By: #### L 500.2500, L100.0100 #### [facility] [address] [place], [address] Absolute lymphocyte countOrd ered By: Madiha Razo on 04-21-2025 Lymphocytes Auto (Unsp spec) [#/Vol] 0.91 10*3/uL 0.83-4.51 [facility] Absolute neutrophil countOrd ered By: Madiha Razo on 04-21-2025 Neutrophils (Bld) [#/Vol] 13.0 10*3/uL High 2.0-7.7 [facility] Anion gap in Serum or Plasma Ordered By: Madiha Razo on 04-21-2025 Anion gap [Moles/Vol] 15 mmol/L 5-15 [facility] Automated lymphocyte count a s percentage of total leukocytesOrdered By: Madiha Razo on 04-21-2025 Lymphocytes/100 WBC Auto (Unsp spec) 6.4 % Low 19-41 [facility] BUN/creatinine ratioOrdered By: Madiha Razo on 04-21-2025 Urea nitrogen/Creatinine [Mass ratio] 24.6 mg/mg High 10-20 [facility] Basic Metabolic Profile (BMP )on 04-21-2025 BUN/CRE 24.6 RATIO High 10-20 [facility] Comment on above: Performed By: #### L 500.2500, L100.0100 #### [facility] [address] [place], [address] Calcium [Mass/Vol] 9.1 mg/dL Normal 7.6-11.0 [facility] Comment on above: Performed By: #### L 500.2500, L100.0100 #### [facility] [address] [place], [address] Chloride [Moles/Vol] 97 mmol/L Low 98-108 [facility] Comment on above: Performed By: #### L 500.2500, L100.0100 #### [facility] [address] [place], [address] CO2 [Moles/Vol] 21.4 mmol/L Normal 21.0-32.0 [facility] Comment on above: Performed By: #### L 500.2500, L100.0100 #### [facility] [address] [place], [address] Creatinine [Mass/Vol] 1.02 mg/dL Normal 0.70-1.20 [facility] Comment on above: Performed By: #### L 500.2500, L100.0100 #### [facility] [address] [place], [address] ECRCL 71.72 ml/min Normal 50-250 [facility] Comment on above: Performed By: #### L 500.2500, L100.0100 #### [facility] [address] [place], [address] GAP 15 Normal 5-15 [facility] Comment on above: Performed By: #### L 500.2500, L100.0100 #### [facility] [address] [place], [address] GFR/1.73 sq M.predicted among non-blacks MDRD (S/P/Bld) [Vol rate/Area] 81 mL/min/{1.73_m2} Normal >60 [facility] Comment on above: Result Comment: mL/m in/1.73m2 CKD-EPI Creatinine Equation (2020) Performed By: #### L 500.2500, L100.0100 #### [facility] [address] [place], [address] Glucose [Mass/Vol] 174 mg/dL High 70-99 [facility] Comment on above: Performed By: #### L 500.2500, L100.0100 #### [facility] [address] [place], [address] Potassium [Moles/Vol] 4.2 mmol/L Normal 3.3-5.1 [facility] Comment on above: Performed By: #### L 500.2500, L100.0100 #### [facility] [address] [place], [address] Sodium [Moles/Vol] 133 mmol/L Normal 133-145 [facility] Comment on above: Performed By: #### L 500.2500, L100.0100 #### [facility] [address] [place], [address] Urea nitrogen [Mass/Vol] 25 mg/dL High 4-19 [facility] Comment on above: Performed By: #### L 500.2500, L100.0100 #### [facility] [address] [place], [address] Basophil percentageOrdered B y: Madiha Razo on 04-21-2025 Basophils/100 WBC (Bld) 0.1 % 0-1 [facility] CBC W/Diff, Automatedon Absolute Lymph 0.91 X10 3/uL Normal 0.83-4.51 [facility] Comment on above: Performed By: #### L 500.2500, L100.0100 #### [facility] [address] [place], [address] Absolute Neut 13.0 X10 3/uL High 2.0-7.7 [facility] Comment on above: Performed By: #### L 500.2500, L100.0100 #### [facility] [address] [place], [address] Basophils/100 WBC (Bld) 0.1 % Normal 0-1 [facility] Comment on above: Performed By: #### L 500.2500, L100.0100 #### [facility] [address] [place], [address] Eosinophils/100 WBC (Bld) 0.1 % Normal 0-5 [facility] Comment on above: Performed By: #### L 500.2500, L100.0100 #### [facility] [address] [place], [address] Erythrocyte distribution width (RBC) [Ratio] 13.0 % Normal 11.6-14.6 [facility] Comment on above: Performed By: #### L 500.2500, L100.0100 #### [facility] [address] [place], [address] Hematocrit (Bld) [Volume fraction] 43.5 % Normal 40-54 [facility] Comment on above: Performed By: #### L 500.2500, L100.0100 #### [facility] [address] [place], [address] Hemoglobin (Bld) [Mass/Vol] 14.7 g/dL Normal 13.0-16.5 [facility] Comment on above: Performed By: #### L 500.2500, L100.0100 #### [facility] [address] [place], [address] IG% 0.600 Normal 0.0-0.9 [facility] Comment on above: Result Comment: IG% - Immature Granulocytes (promyelocytes, myelocytes and metamyelocytes) > 1% indicates that a LEFT SHIFT is Present. Performed By: #### L 500.2500, L100.0100 #### [facility] [address] [place], [address] Lymphocytes/100 WBC (Bld) 6.4 % Low 19-41 [facility] Comment on above: Performed By: #### L 500.2500, L100.0100 #### [facility] [address] [place], [address] MCH (RBC) [Entitic mass] 32.2 pg High 27.0-32.0 [facility] Comment on above: Performed By: #### L 500.2500, L100.0100 #### [facility] [address] [place], [address] MCHC (RBC) [Mass/Vol] 33.8 g/dL Normal 32-36 [facility] Comment on above: Performed By: #### L 500.2500, L100.0100 #### [facility] [address] [place], [address] MCV (RBC) [Entitic vol] 95.2 fL High 80-94 [facility] Comment on above: Performed By: #### L 500.2500, L100.0100 #### [facility] [address] [place], [address] Monocytes/100 WBC (Bld) 2.0 % Normal 0-10 [facility] Comment on above: Performed By: #### L 500.2500, L100.0100 #### [facility] [address] [place], [address] Neutrophils/100 WBC (Bld) 90.8 % High 47-70 [facility] Comment on above: Performed By: #### L 500.2500, L100.0100 #### [facility] [address] [place], [address] Nucleated RBC (Bld) [#/Vol] 0 10*3/uL Normal 0-5 [facility] Comment on above: Performed By: #### L 500.2500, L100.0100 #### [facility] [address] [place], [address] Platelet mean volume (Bld) [Entitic vol] 9.7 fL Normal 6.2-12.0 [facility] Comment on above: Performed By: #### L 500.2500, L100.0100 #### [facility] [address] [place], [address] Platelets (Bld) [#/Vol] 373 10*3/uL Normal 150-450 [facility] Comment on above: Performed By: #### L 500.2500, L100.0100 #### [facility] [address] [place], [address] RBC (Bld) [#/Vol] 4.57 10*6/uL Low 4.6-6.2 [facility] Comment on above: Performed By: #### L 500.2500, L100.0100 #### [facility] [address] [place], [address] RDW SD 45.0 fl High 35.1-43.9 [facility] Comment on above: Performed By: #### L 500.2500, L100.0100 #### [facility] [address] [place], [address] WBC (Bld) [#/Vol] 14.3 10*3/uL High 4.4-11.0 [facility] Comment on above: Performed By: #### L 500.2500, L100.0100 #### [facility] [address] [place], [address] Carbon dioxide, total [Moles /volume] in Central venous bloodOrdered By: Madiha Razo on 04-21-2025 CO2 [Moles/Vol] 21.4 mmol/L 21.0-32.0 [facility] Chloride assayOrdered By: Jey Razo on 04-21-2025 Chloride [Moles/Vol] 97 mmol/L Low 98-108 [facility] Electrocardiogram reportOrde red By: Vance Gomez on 04-21-2025 EKG study [facility] Cardiovascular Services [address] [place] [address] 12 Lead EKG 04/20/25 1233 MR#: [id number] Acct: [id number] Name: MELCHOR LYLE Rep #:[id number] : 1960 64 From: Vance Gomez MD Attending Dr: Dr. Chino Sandoval DO Status: ADM IN Ordering Dr: Minal Castro Date: 04/20/25 Location: [facility] Sex: M C Admitted: 04/20/25 Test Reason : SOB Blood Pressure : */* mmHG Vent. Rate : 104 BPM Atrial Rate : 104 BPM P-R Int : 150 ms QRS Dur : 80 ms QT Int : 328 ms P-R-T Axes : 10 28 40 degrees QTcB Int : 431 ms Sinus tachycardia Otherwise normal ECG Confirmed by NADINE TERAN, VANCE ([id number]), production editor ESTER OROZCO ([id number]) on 04/21/2025 9:46:39 AM Referred By: Confirmed By: VANCE GOMEZ MD 04/21/25 0946 Date _ Vance Gomez MD CC: Dr. Chino Sandoval DO; JEY Sheppard; [facility] ~ Signed [facility] Other Eosinophil percentageOrdered By: Madiha Rzao on 04-21-2025 Eosinophils/100 WBC (Bld) 0.1 % 0-5 [facility] Erythrocyte distribution wid th ratioOrdered By: Madiha Razo on 04-21-2025 Erythrocyte distribution width (RBC) [Ratio] 13.0 % 11.6-14.6 [facility] Erythrocyte distribution wid th standard deviationOrdered By: Madiha Razo on 04-21-2025 Erythrocyte distribution width (RBC) [Ratio] 45.0 fl High 35.1-43.9 [facility] Glomerular filtration rate ( GFR) estimation/1.73 sq m using serum, plasma, or whole bOrdered By: Madiha Razo on 04-21-2025 GFR/1.73 sq M.predicted among non-blacks MDRD (S/P/Bld) [Vol rate/Area] 81 mL/min/{1.73_m2} >60 [facility] Comment on above: mL/min/1.73m2 CKD-EP I Creatinine Equation (2020) Gram Stainon 04-21-2025 GS List Antibiotics Last 48 Hours? see mar Acceptable Specimen? Yes (<25 Epithelial cells per/lpf) Gram Stain 1+ White Blood Cells 1+ Epithelial cells Rare Gram positive cocci Rare Gram positive rods Normal [facility] Comment on above: Performed By: #### L 500.2500, L100.0100 #### [facility] [address] [place], [address] Hematocrit Auto (Bld) [Volum e fraction]Ordered By: Madiha Razo on 04-21-2025 Hematocrit (Bld) [Volume fraction] 43.5 % 40-54 [facility] Hemoglobin measurementOrdere d By: Madiha Razo on 04-21-2025 Hemoglobin (Bld) [Mass/Vol] 14.7 g/dL 13.0-16.5 [facility] Immature granulocytes/100 WB C Auto (Bld)Ordered By: Madiha Razo on 04-21-2025 Immature granulocytes/100 WBC (Bld) 0.600 % 0.0-0.9 [facility] Comment on above: IG% - Immature Granu locytes (promyelocytes, myelocytes and metamyelocytes) > 1% indicates that a LEFT SHIFT is Present. MCV (mean corpuscular volume ) determinationOrdered By: Madiha Razo on 04-21-2025 MCV (RBC) [Entitic vol] 95.2 fL High 80-94 [facility] Mean corpuscular hemoglobin (MCH) determinationOrdered By: Madiha Razo on 04-21-2025 MCH (RBC) [Entitic mass] 32.2 pg High 27.0-32.0 [facility] Mean corpuscular hemoglobin concentration (MCHC) determinationOrdered By: Madiha Razo on 04-21-2025 MCHC (RBC) [Mass/Vol] 33.8 g/dL 32-36 [facility] Mean platelet volume determi nationOrdered By: Madiha Razo on 04-21-2025 Platelet mean volume (Bld) [Entitic vol] 9.7 fL 6.2-12.0 [facility] Monocyte percentageOrdered B y: Madiha Razo on 04-21-2025 Monocytes/100 WBC (Bld) 2.0 % 0-10 [facility] Neutrophil percentageOrdered By: Madiha Razo on 04-21-2025 Neutrophils/100 WBC (Bld) 90.8 % High 47-70 [facility] Nucleated red blood cell per centageOrdered By: Madiha Razo on 04-21-2025 Nucleated RBC/100 WBC (Bld) [Ratio] 0 % 0-5 [facility] Platelet countOrdered By: Jye Razo on 04-21-2025 Platelets (Bld) [#/Vol] 373 10*3/uL 150-450 [facility] Potassium measurement (mass/ volume)Ordered By: Madiha Razo on 04-21-2025 Potassium (Unsp spec) [Mass/Vol] 4.2 mmol/L 3.3-5.1 [facility] RBC Auto (Bld) [#/Vol]Ordere d By: Madiha Razo on 04-21-2025 RBC (Bld) [#/Vol] 4.57 10*6/uL Low 4.6-6.2 [facility] Serum creatinine measurement (mass/volume)Ordered By: Madiha Razo on 04-21-2025 Creatinine [Mass/Vol] 1.02 mg/dL 0.70-1.20 [facility] Serum glucose measurement (m ass/volume)Ordered By: Madiha Razo on 04-21-2025 Glucose [Mass/Vol] 174 mg/dL High 70-99 [facility] Serum or plasma calcium doni urement (mass/volume)Ordered By: Madiha Razo on 04-21-2025 Calcium [Mass/Vol] 9.1 mg/dL 7.6-11.0 [facility] Serum or plasma urea nitroge n measurement (mass/volume)Ordered By: Madiha Razo on 04-21-2025 Urea nitrogen [Mass/Vol] 25 mg/dL High 4-19 [facility] Sodium levelOrdered By: Cory Razo on 04-21-2025 Sodium [Moles/Vol] 133 mmol/L 133-145 [facility] White blood cell (WBC) count Ordered By: Madiha Razo on 04-21-2025 WBC (Bld) [#/Vol] 14.3 10*3/uL High 4.4-11.0 [facility] 12 Lead EKGon 04-20-2025 12 Lead EKG [facility] Cardiovascular Services [address] [place] [address] 12 Lead EKG 04/20/25 1233 MR#: [id number] Acct: [id number] Name: MELCHOR LYLE Rep #: [id number] : 1960 64 From: Vance Gomez MD Attending Dr: Dr. Chino Sandoval DO Status : ADM IN Ordering Dr: Minal Castro Date: 04/20/25 Location: [facility] Sex: M C Admitted: 04/20/25 Test Reason : SOB Blood Pressure : */* mmHG Vent. Rate : 104 BPM Atrial Rate : 104 BPM P-R Int : 150 ms QRS Dur : 80 ms QT Int : 328 ms P-R-T Axes : 10 28 40 degrees QTcB Int : 431 ms Sinus tachycardia Otherwise normal ECG Confirmed by VANCE GOMEZ MD ([id number]), production editor ESTER OROZCO ([id number]) on 04/21/2025 9:46:39 AM Referred By: Confirmed By: VANCE GOMEZ MD 04/21/25 0946 Date Vance Gomez MD CC: Dr. Chino Sandoval DO; JEY Sheppard; [facility] Signed Normal [facility] Absolute lymphocyte countOrd ered By: Minal aCstro on 04-20-2025 Lymphocytes Auto (Unsp spec) [#/Vol] 1.24 10*3/uL 0.83-4.51 [facility] Absolute neutrophil countOrd ered By: Minal Castro on 04-20-2025 Neutrophils (Bld) [#/Vol] 10.9 10*3/uL High 2.0-7.7 [facility] Anion gap in Serum or Plasma Ordered By: Minal Castro on 04-20-2025 Anion gap [Moles/Vol] 15 mmol/L 5-15 [facility] Automated lymphocyte count a s percentage of total leukocytesOrdered By: Minal Castro on 04-20-2025 Lymphocytes/100 WBC Auto (Unsp spec) 9.1 % Low 19-41 [facility] BUN/creatinine ratioOrdered By: Minal Castro on 04-20-2025 Urea nitrogen/Creatinine [Mass ratio] 15.2 mg/mg 10-20 [facility] Basic Metabolic Profile (BMP )on 04-20-2025 BUN/CRE 15.2 RATIO Normal 10-20 [facility] Comment on above: Performed By: #### L 100.0100, L500.2500, L501.4021 #### [facility] [address] [place], [address] Calcium [Mass/Vol] 9.3 mg/dL Normal 7.6-11.0 [facility] Comment on above: Performed By: #### L 100.0100, L500.2500, L501.4021 #### [facility] [address] [place], [address] Chloride [Moles/Vol] 95 mmol/L Low 98-108 [facility] Comment on above: Performed By: #### L 100.0100, L500.2500, L501.4021 #### [facility] [address] [place], [address] CO2 [Moles/Vol] 22.7 mmol/L Normal 21.0-32.0 [facility] Comment on above: Performed By: #### L 100.0100, L500.2500, L501.4021 #### [facility] [address] [place], [address] Creatinine [Mass/Vol] 1.01 mg/dL Normal 0.70-1.20 [facility] Comment on above: Performed By: #### L 100.0100, L500.2500, L501.4021 #### [facility] [address] [place], [address] ECRCL 74.63 ml/min Normal 50-250 [facility] Comment on above: Performed By: #### L 100.0100, L500.2500, L501.4021 #### [facility] [address] [place], [address] GAP 15 Normal 5-15 [facility] Comment on above: Performed By: #### L 100.0100, L500.2500, L501.4021 #### [facility] [address] [place], [address] GFR/1.73 sq M.predicted among non-blacks MDRD (S/P/Bld) [Vol rate/Area] 82 mL/min/{1.73_m2} Normal >60 [facility] Comment on above: Result Comment: mL/m in/1.73m2 CKD-EPI Creatinine Equation (2020) Performed By: #### L 100.0100, L500.2500, L501.4021 #### [facility] [address] [place], [address] Glucose [Mass/Vol] 116 mg/dL High 70-99 [facility] Comment on above: Performed By: #### L 100.0100, L500.2500, L501.4021 #### [facility] [address] [place], [address] Potassium [Moles/Vol] 4.4 mmol/L Normal 3.3-5.1 [facility] Comment on above: Performed By: #### L 100.0100, L500.2500, L501.4021 #### [facility] [address] [place], [address] Sodium [Moles/Vol] 133 mmol/L Normal 133-145 [facility] Comment on above: Performed By: #### L 100.0100, L500.2500, L501.4021 #### [facility] [address] [place], [address] Urea nitrogen [Mass/Vol] 15 mg/dL Normal 4-19 [facility] Comment on above: Performed By: #### L 100.0100, L500.2500, L501.4021 #### [facility] [address] [place], [address] Basophil percentageOrdered B y: Minal Castro on 04-20-2025 Basophils/100 WBC (Bld) 0.7 % 0-1 [facility] CBC W/Diff, Automatedon -2024 Absolute Lymph 1.24 X10 3/uL Normal 0.83-4.51 [facility] Comment on above: Performed By: #### L 100.0100, L500.2500, L501.4021 #### [facility] [address] [place], [address] Absolute Neut 10.9 X10 3/uL High 2.0-7.7 [facility] Comment on above: Performed By: #### L 100.0100, L500.2500, L501.4021 #### [facility] [address] [place], [address] Basophils/100 WBC (Bld) 0.7 % Normal 0-1 [facility] Comment on above: Performed By: #### L 100.0100, L500.2500, L501.4021 #### [facility] [address] [place], [address] Eosinophils/100 WBC (Bld) 2.3 % Normal 0-5 [facility] Comment on above: Performed By: #### L 100.0100, L500.2500, L501.4021 #### [facility] [address] [place], [address] Erythrocyte distribution width (RBC) [Ratio] 13.1 % Normal 11.6-14.6 [facility] Comment on above: Performed By: #### L 100.0100, L500.2500, L501.4021 #### [facility] [address] [place], [address] Hematocrit (Bld) [Volume fraction] 46.4 % Normal 40-54 [facility] Comment on above: Performed By: #### L 100.0100, L500.2500, L501.4021 #### [facility] [address] [place], [address] Hemoglobin (Bld) [Mass/Vol] 15.9 g/dL Normal 13.0-16.5 [facility] Comment on above: Performed By: #### L 100.0100, L500.2500, L501.4021 #### [facility] [address] [place], [address] IG% 0.400 Normal 0.0-0.9 [facility] Comment on above: Result Comment: IG% - Immature Granulocytes (promyelocytes, myelocytes and metamyelocytes) > 1% indicates that a LEFT SHIFT is Present. Performed By: #### L 100.0100, L500.2500, L501.4021 #### [facility] [address] [place], [address] Lymphocytes/100 WBC (Bld) 9.1 % Low 19-41 [facility] Comment on above: Performed By: #### L 100.0100, L500.2500, L501.4021 #### [facility] [address] [place], [address] MCH (RBC) [Entitic mass] 32.3 pg High 27.0-32.0 [facility] Comment on above: Performed By: #### L 100.0100, L500.2500, L501.4021 #### [facility] [address] [place], [address] MCHC (RBC) [Mass/Vol] 34.3 g/dL Normal 32-36 [facility] Comment on above: Performed By: #### L 100.0100, L500.2500, L501.4021 #### [facility] [address] [place], [address] MCV (RBC) [Entitic vol] 94.1 fL High 80-94 [facility] Comment on above: Performed By: #### L 100.0100, L500.2500, L501.4021 #### [facility] [address] [place], [address] Monocytes/100 WBC (Bld) 7.4 % Normal 0-10 [facility] Comment on above: Performed By: #### L 100.0100, L500.2500, L501.4021 #### [facility] [address] [place], [address] Neutrophils/100 WBC (Bld) 80.1 % High 47-70 [facility] Comment on above: Performed By: #### L 100.0100, L500.2500, L501.4021 #### [facility] [address] [place], [address] Nucleated RBC (Bld) [#/Vol] 0 10*3/uL Normal 0-5 [facility] Comment on above: Performed By: #### L 100.0100, L500.2500, L501.4021 #### [facility] [address] [place], [address] Platelet mean volume (Bld) [Entitic vol] 9.3 fL Normal 6.2-12.0 [facility] Comment on above: Performed By: #### L 100.0100, L500.2500, L501.4021 #### [facility] [address] [place], [address] Platelets (Bld) [#/Vol] 334 10*3/uL Normal 150-450 [facility] Comment on above: Performed By: #### L 100.0100, L500.2500, L501.4021 #### [facility] [address] [place], [address] RBC (Bld) [#/Vol] 4.93 10*6/uL Normal 4.6-6.2 [facility] Comment on above: Performed By: #### L 100.0100, L500.2500, L501.4021 #### [facility] [address] [place], [address] RDW SD 44.8 fl High 35.1-43.9 [facility] Comment on above: Performed By: #### L 100.0100, L500.2500, L501.4021 #### [facility] [address] [place], [address] WBC (Bld) [#/Vol] 13.6 10*3/uL High 4.4-11.0 [facility] Comment on above: Performed By: #### L 100.0100, L500.2500, L501.4021 #### [facility] [address] [place], [address] CO2 (BldV) [Moles/Vol]Ordere d By: Oneal Ng on 04-20-2025 CO2 [Moles/Vol] 30 mmol/L 23-33 [facility] Carbon dioxide, total [Moles /volume] in Central venous bloodOrdered By: Minal Castro on 04-20-2025 CO2 [Moles/Vol] 22.7 mmol/L 21.0-32.0 [facility] Chest 1 View (Portable)on Chest 1 View (Portable) [facility] Imaging Services [address] [place] [address] Chest 1 View (Portable) MR#: [id number] Acct: [id number] Name: MELCHOR LYLE Rep #: [id number] : 1960 M 64 From: Delores Betts nd, MD PCP: [facility] Status: PRE ER Study: Chest 1 View (Portable) Date of Exam: 04/20/25 Exam# [id number] Ordering Dr: Minal Castro PROCEDURE: CHEST 1 [...] (Portable) IMPRESSION: No Acute Findings. Reading Location: [id number] CC: JEY Sheppard; [facility] Family Day Care Worker: Signed Normal [facility] Chloride assayOrdered By: Hyun Castro on 04-20-2025 Chloride [Moles/Vol] 95 mmol/L Low 98-108 [facility] Emergency Department Summary on 04-20-2025 Emergency Department Summary [facility] Medical Records Department [address] [place] [address] Emergency Department Summary 04/20/25 MR#: [id number] Acct: [id number] Name: MELCHOR LYLE Rep #: [id number] : 1960 64 From: Minal JUÁREZ PCP: [facility] Status:ADM IN Location: [place] [address] HPI History of Present Illness Chief Complaint: [...] not approve it for further use. [facility] Medical History (Updated 04/20/25 @ 16:03 [...] exacerbation, pneumonia, (more content not included)... Normal [facility] Eosinophil percentageOrdered By: Minal Castro on 04-20-2025 Eosinophils/100 WBC (Bld) 2.3 % 0-5 [facility] Erythrocyte distribution wid th ratioOrdered By: Minal Castro on 04-20-2025 Erythrocyte distribution width (RBC) [Ratio] 13.1 % 11.6-14.6 [facility] Erythrocyte distribution wid th standard deviationOrdered By: Minal Castro on 04-20-2025 Erythrocyte distribution width (RBC) [Ratio] 44.8 fl High 35.1-43.9 [facility] Glomerular filtration rate ( GFR) estimation/1.73 sq m using serum, plasma, or whole bOrdered By: Minal Castro on 04-20-2025 GFR/1.73 sq M.predicted among non-blacks MDRD (S/P/Bld) [Vol rate/Area] 82 mL/min/{1.73_m2} >60 [facility] Comment on above: mL/min/1.73m2 CKD-EP I Creatinine Equation (2020) Gram stainOrdered By: Madiha Razo on 04-20-2025 Microscopic observation Gram stain Nom (Unsp spec) [facility] H AND P Exam - Hospitaliston 04-20-2025 H&P Exam - Hospitalist [facility] Medical Records Department [address] [place] [address] H P Exam - Hospitalist 04/20/25 1434 MR#: [id number] Acct: [id number] Name: MELCHOR LYLE Rep #: [id number] : 1960 64 From: Madiha Razo MD PCP: [facility] Status:ADM IN Location: [facility] [id number] HPI - General General Date of Admission: 04/20/25 Date of Service: 04/20/25 Chief Complaint: Increasing SOB HPI Narrative MELCHOR LYLE, is a 64 M with a history of suspected COPD, tobacco use, hypertension and seasonal allergies who presented to [facility] ED 04/20/2025 due to increasing [...] and steroids but is still significantly struggling. [facility] Medical History Hypertension Home Medications [...] 80.1 H, Lymph % (Auto) 9.1 L, [place] % (Auto) 7.4, E (more content not included)... Normal [facility] Hematocrit Auto (Bld) [Volum e fraction]Ordered By: Minal Castro on 04-20-2025 Hematocrit (Bld) [Volume fraction] 46.4 % 40-54 [facility] Hemoglobin measurementOrdere d By: Minal Castro on 04-20-2025 Hemoglobin (Bld) [Mass/Vol] 15.9 g/dL 13.0-16.5 [facility] Immature granulocytes/100 WB C Auto (Bld)Ordered By: Minal Castro on 04-20-2025 Immature granulocytes/100 WBC (Bld) 0.400 % 0.0-0.9 [facility] Comment on above: IG% - Immature Granu locytes (promyelocytes, myelocytes and metamyelocytes) > 1% indicates that a LEFT SHIFT is Present. Influenza virus A and B and SARS-CoV-2 (COVID-19) and Respiratory syncytial virus RNAOrdered By: Minal Castro on 04-20-2025 SARS-CoV-2 (COVID-19) RNA LORRAINE+probe Ql (Unsp spec) [facility] L501.4021on 04-20-2025 Trop T High Sen < 6 Normal <=22 [facility] Comment on above: Performed By: #### L 501.4021 #### [facility] [address] [place], [address] Trop T High Sen < 6 Normal <=22 [facility] Comment on above: Performed By: #### L 100.0100, L500.2500, L501.4021 #### [facility] [address] [place], [address] M100.678on 04-20-2025 M100.678 Pending SARS-CoV-2 (COVID 19) Negative INFLUENZA A Negative INFLUENZA B Negative RSV PCR Negative Normal [facility] Comment on above: Performed By: #### L 500.2500, L100.0100 #### [facility] [address] [place], [address] MCV (mean corpuscular volume ) determinationOrdered By: Minal Castro on 04-20-2025 MCV (RBC) [Entitic vol] 94.1 fL High 80-94 [facility] Mean corpuscular hemoglobin (MCH) determinationOrdered By: Minal Castro on 04-20-2025 MCH (RBC) [Entitic mass] 32.3 pg High 27.0-32.0 [facility] Mean corpuscular hemoglobin concentration (MCHC) determinationOrdered By: Minal Castro on 04-20-2025 MCHC (RBC) [Mass/Vol] 34.3 g/dL 32-36 [facility] Mean platelet volume determi nationOrdered By: Minal Castro on 04-20-2025 Platelet mean volume (Bld) [Entitic vol] 9.3 fL 6.2-12.0 [facility] Monocyte percentageOrdered B y: Minal Castro on 04-20-2025 Monocytes/100 WBC (Bld) 7.4 % 0-10 [facility] Neutrophil percentageOrdered By: Minal Castro on 04-20-2025 Neutrophils/100 WBC (Bld) 80.1 % High 47-70 [facility] No Panel InformationOrdered By: Oneal Ng on 04-20-2025 Blood Gas Sample Site Not entered [facility] Blood Gas Specimen Type NIRMAL [facility] Oxygen Delivery Device Not entered [facility] Nucleated red blood cell per centageOrdered By: Minal Castro on 04-20-2025 Nucleated RBC/100 WBC (Bld) [Ratio] 0 % 0-5 [facility] Platelet countOrdered By: Hyun Castro on 04-20-2025 Platelets (Bld) [#/Vol] 334 10*3/uL 150-450 [facility] Potassium measurement (mass/ volume)Ordered By: Minal Castro on 04-20-2025 Potassium (Unsp spec) [Mass/Vol] 4.4 mmol/L 3.3-5.1 [facility] RBC Auto (Bld) [#/Vol]Ordere d By: Minal Castro on 04-20-2025 RBC (Bld) [#/Vol] 4.93 10*6/uL 4.6-6.2 [facility] RESPIRATORY PANEL MOLECULARo n 04-20-2025 RP PANEL ADENOVIRUS Not Detected INFLUENZA A Not Detected INFLUENZA A (SUBTYPE H1) Not Detected INFLUENZA A (SUBTYPE H3) Not Detected INFLUENZA B Not Detected HUMAN METAPHNEUMO Not Detected PARAINFLUENZA 1 Not Detected PARAINFLUENZA 2 Not Detected PARAINFLUENZA 3 Not Detected PARAINFLUENZA 4 Not Detected RHINOVIRUS Not Detected RSV A Not Detected RSV B Not Detected Normal [facility] Comment on above: Performed By: #### L 500.2500, L100.0100 #### [facility] [address] [place], [address] Respiratory pathogens detect ion panel by molecular detection methodOrdered By: Madiha Razo on 04-20-2025 Respiratory pathogens DNA and RNA panel LORRAINE+probe (Resp) [facility] Serum creatinine measurement (mass/volume)Ordered By: Minal Castro on 04-20-2025 Creatinine [Mass/Vol] 1.01 mg/dL 0.70-1.20 [facility] Serum glucose measurement (m ass/volume)Ordered By: Minal Castro on 04-20-2025 Glucose [Mass/Vol] 116 mg/dL High 70-99 [facility] Serum or plasma calcium doni urement (mass/volume)Ordered By: Minal Castro on 04-20-2025 Calcium [Mass/Vol] 9.3 mg/dL 7.6-11.0 [facility] Serum or plasma urea nitroge n measurement (mass/volume)Ordered By: Minal Castro on 04-20-2025 Urea nitrogen [Mass/Vol] 15 mg/dL 4-19 [facility] Sodium levelOrdered By: Minal Castro on 04-20-2025 Sodium [Moles/Vol] 133 mmol/L 133-145 [facility] Troponin T HS 2 HRon 025 Trop T High Sen 7 ng/L Normal <=22 [facility] Comment on above: Performed By: #### L 500.2500, L100.0500 #### [facility] [address] [place], [place], [address] Troponin T.cardiac [Mass/vol ume] in Serum or Plasma by High sensitivity methodOrdered By: Madiha Razo on 04-20-2025 Troponin T.cardiac High sensitivity method [Mass/Vol] < 6 ng/L <22 [facility] Troponin T.cardiac [Mass/vol ume] in Serum or Plasma by High sensitivity methodOrdered By: Minal Castro on 04-20-2025 Troponin T.cardiac High sensitivity method [Mass/Vol] 7 ng/L <22 [facility] Troponin T.cardiac High sensitivity method [Mass/Vol] < 6 ng/L <22 [facility] Venous Blood Gason 5 Blood Gas Type NIRMAL Normal [facility] Comment on above: Performed By: #### L 9000.0810 #### [facility] [address] [place], [address] CO2 [Moles/Vol] 30 mmol/L Normal 23-33 [facility] Comment on above: Performed By: #### L 9000.0810 #### [facility] [address] [place], [address] HCO3 (Bld) [Moles/Vol] 29 mmol/L High 22-26 [facility] Comment on above: Performed By: #### L 9000.0810 #### [facility] [address] [place], [address] O2 Delivery Dev Not entered Normal [facility] Comment on above: Performed By: #### L 9000.0810 #### [facility] [address] [place], [address] SITE Not entered Normal [facility] Comment on above: Performed By: #### L 9000.0810 #### [facility] [address] [place], [address] VBG BE 4 mmol/L High -1.0-3.5 [facility] Comment on above: Performed By: #### L 9000.0810 #### [facility] [address] [place], [address] VBG pCO2 46.3 mmHg Normal 41-51 [facility] Comment on above: Performed By: #### L 9000.0810 #### [facility] [address] [place], [address] VBG pH 7.40 Normal 7.32-7.42 [facility] Comment on above: Performed By: #### L 9000.0810 #### [facility] [address] [place], [address] VBG PO2 80 mmHg High 25-40 [facility] Comment on above: Performed By: #### L 9000.0810 #### [facility] [address] [place], [address] VBG SO2 96 High 50-70 [facility] Comment on above: Performed By: #### L 9000.0810 #### [facility] [address] [place], [address] Venous blood base excess rich surementOrdered By: Oneal Ng on 04-20-2025 Base excess Calc (BldV) [Moles/Vol] 4 mmol/L High -1.0-3.5 [facility] Venous blood bicarbonate rich surementOrdered By: Oneal Ng on 04-20-2025 HCO3 (Bld) [Moles/Vol] 29 mmol/L High 22-26 [facility] Venous blood oxygen saturati on measurementOrdered By: Oneal Ng on 04-20-2025 Oxygen saturation in Blood 96 % High 50-70 [facility] Venous blood pH measurementO rdered By: Oneal Ng on 04-20-2025 pH (BldV) 7.40 [pH] 7.32-7.42 [facility] Venous blood partial pressur e of carbon dioxide measurementOrdered By: Oneal Ng on 04-20-2025 CO2 (BldV) [Partial pressure] 46.3 mm[Hg] 41-51 [facility] Venous blood partial pressur e of oxygen measurementOrdered By: Oneal Yo on 04-20-2025 Oxygen (BldV) [Partial pressure] 80 mm[Hg] High 25-40 [facility] White blood cell (WBC) count Ordered By: Minal Castro on 04-20-2025 WBC (Bld) [#/Vol] 13.6 10*3/uL High 4.4-11.0 [facility] Basic Metabolic Profile (BMP )on 05-29-2024 BUN/CRE 16.2 RATIO Normal 10-20 [facility] Comment on above: Performed By: #### L 500.2500, L100.0500 #### [facility] [address] [place], [address] CA,Total 9.7 mg/dL Normal 8.5-10.1 [facility] Comment on above: Performed By: #### L 500.2500, L100.0500 #### [facility] [address] [place], [address] Chloride [Moles/Vol] 102 mmol/L Normal 98-107 [facility] Comment on above: Performed By: #### L 500.2500, L100.0500 #### [facility] [address] [place], [address] CO2 [Moles/Vol] 26.0 mmol/L Normal 21.0-32.0 [facility] Comment on above: Performed By: #### L 500.2500, L100.0500 #### [facility] [address] [place], [address] Creatinine [Mass/Vol] 1.05 mg/dL Normal 0.70-1.30 [facility] Comment on above: Result Comment: The validity of the calculated GFR GFRAA in patients over 70 years has not been determined. Clinical correlation is essential. Performed By: #### L 500.2500, L100.0500 #### [facility] [address] [place], [address] ECRCL 72.08 ml/min Normal [facility] Comment on above: Performed By: #### L 500.2500, L100.0500 #### [facility] [address] [place], [address] EST GFR - AA 91 mL/min Normal >60 [facility] Comment on above: Result Comment: Afri can Nicaraguan GFR Calc Performed By: #### L 500.2500, L100.0500 #### [facility] [address] [place], [address] GAP 7 Normal 5-15 [facility] Comment on above: Performed By: #### L 500.2500, L100.0500 #### [facility] [address] [place], [address] GFR/1.73 sq M.predicted among non-blacks MDRD (S/P/Bld) [Vol rate/Area] 75 mL/min/{1.73_m2} Normal >60 [facility] Comment on above: Result Comment: Non- GFR Calc Performed By: #### L 500.2500, L100.0500 #### [facility] [address] [place], [address] Glucose [Mass/Vol] 149 mg/dL High 74-106 [facility] Comment on above: Result Comment: Fast ing Glucose result greater than or equal to 126 mg/dL suggests DIABETES MELLITUS per A.D.A. criteria. Performed By: #### L 500.2500, L100.0500 #### [facility] [address] [place], [address] Potassium [Moles/Vol] 4.4 mmol/L Normal 3.5-5.1 [facility] Comment on above: Performed By: #### L 500.2500, L100.0500 #### [facility] [address] [place], [address] Sodium [Moles/Vol] 135 mmol/L Low 136-145 [facility] Comment on above: Performed By: #### L 500.2500, L100.0500 #### [facility] [address] [place], [address] Urea nitrogen [Mass/Vol] 17 mg/dL Normal 7-18 [facility] Comment on above: Performed By: #### L 500.2500, L100.0500 #### [facility] [address] [place], [address] CBC W/Diff, Automatedon 05-19 Absolute Lymph 1.10 X10 3/uL Normal 0.83-4.51 [facility] Comment on above: Performed By: #### L 500.2500, L100.0500 #### [facility] [address] [place], [address] Absolute Neut 14.7 X10 3/uL High 2.0-7.7 [facility] Comment on above: Performed By: #### L 500.2500, L100.0500 #### [facility] [address] [place], [address] Basophils/100 WBC (Bld) 0.1 % Normal 0-1 [facility] Comment on above: Performed By: #### L 500.2500, L100.0500 #### [facility] [address] [place], [address] Eosinophils/100 WBC (Bld) 0.0 % Normal 0-5 [facility] Comment on above: Performed By: #### L 500.2500, L100.0500 #### [facility] [address] [place], [address] Erythrocyte distribution width (RBC) [Ratio] 13.0 % Normal 11.6-14.6 [facility] Comment on above: Performed By: #### L 500.2500, L100.0500 #### [facility] [address] [place], [address] Hematocrit (Bld) [Volume fraction] 46.5 % Normal 40-54 [facility] Comment on above: Performed By: #### L 500.2500, L100.0500 #### [facility] [address] [place], [address] Hemoglobin (Bld) [Mass/Vol] 15.2 g/dL Normal 13.0-16.5 [facility] Comment on above: Performed By: #### L 500.2500, L100.0500 #### [facility] [address] [place], [address] IG% 1.100 High 0.0-0.9 [facility] Comment on above: Result Comment: IG% - Immature Granulocytes (promyelocytes, myelocytes and metamyelocytes) > 1% indicates that a LEFT SHIFT is Present. Performed By: #### L 500.2500, L100.0500 #### [facility] [address] [place], [address] Lymphocytes/100 WBC (Bld) 6.7 % Low 19-41 [facility] Comment on above: Performed By: #### L 500.2500, L100.0500 #### [facility] [address] [place], [address] MCH (RBC) [Entitic mass] 31.8 pg Normal 27.0-32.0 [facility] Comment on above: Performed By: #### L 500.2500, L100.0500 #### [facility] [address] [place], [address] MCHC (RBC) [Mass/Vol] 32.7 g/dL Normal 32-36 [facility] Comment on above: Performed By: #### L 500.2500, L100.0500 #### [facility] [address] [place], [address] MCV (RBC) [Entitic vol] 97.3 fL High 80-94 [facility] Comment on above: Performed By: #### L 500.2500, L100.0500 #### [facility] [address] [place], [address] Monocytes/100 WBC (Bld) 3.0 % Normal 0-10 [facility] Comment on above: Performed By: #### L 500.2500, L100.0500 #### [facility] [address] [place], [address] Neutrophils/100 WBC (Bld) 89.1 % High 47-70 [facility] Comment on above: Performed By: #### L 500.2500, L100.0500 #### [facility] [address] [place], [address] Nucleated RBC (Bld) [#/Vol] 0 10*3/uL Normal 0-5 [facility] Comment on above: Performed By: #### L 500.2500, L100.0500 #### [facility] [address] [place], [address] Platelet mean volume (Bld) [Entitic vol] 9.4 fL Normal 6.2-12.0 [facility] Comment on above: Performed By: #### L 500.2500, L100.0500 #### [facility] [address] [place], [address] Platelets (Bld) [#/Vol] 377 10*3/uL Normal 150-450 [facility] Comment on above: Performed By: #### L 500.2500, L100.0500 #### [facility] [address] [place], [address] RBC (Bld) [#/Vol] 4.78 10*6/uL Normal 4.6-6.2 [facility] Comment on above: Performed By: #### L 500.2500, L100.0500 #### [facility] [address] [place], [address] RDW SD 46.9 fl High 35.1-43.9 [facility] Comment on above: Performed By: #### L 500.2500, L100.0500 #### [facility] [address] [place], [address] WBC (Bld) [#/Vol] 16.5 10*3/uL High 4.4-11.0 [facility] Comment on above: Performed By: #### L 500.2500, L100.0500 #### [facility] [address] [place], [address] Discharge Instructionon 05-19 Discharge Instruction [facility] Medical Records Department [address] [place] [address] Instructions for Home/Discharge Instructions 05/29/24 1243 MR#: [id number] Acct: [id number] Name: MELCHOR LYLE Rep #: [id number] : 1960 63 From: Madiha Razo MD [...] -For your continued congestion please obtain Mucinex [id number] to help with your congestion symptoms -Continue [...] Becker MD [Non-Staff] - Within 1 Week [facility] [Primary Care Provider] - Disposition Disposition (needs filled in before D/C Order can be placed): Home, Self Care 05/29/24 1251 Madiha Razo MD CC: [facility] Signed Normal [facility] Respiratory Cultureon 2023 RESPC Pseudomonas aeruginosa Amount Growth 1+ Pseudomonas aeruginosa: REACTION Aztreonam Islt KB 27 S Pseudomonas aeruginosa: REACTION Amikacin Islt ARMAAN <=2 S Cefepime Islt ARMAAN 2 S Ciprofloxacin Islt ARMAAN <=0.25 S Imipenem Islt ARMAAN 1 S levoFLOXacin Islt ARMAAN 0.5 S Meropenem Islt ARMAAN <=0.25 S Pip+Tazo Islt ARMAAN 8 S Tobramycin Islt ARMAAN <=1 S Normal [facility] Comment on above: Performed By: #### L 500.2500, L100.0500 #### [facility] [address] [place], [address] Basic Metabolic Profile (BMP )on 05-28-2024 BUN/CRE 13.9 RATIO Normal 07-07 [facility] Comment on above: Performed By: #### L 500.2500, L100.0500 #### [facility] [address] [place], [place], [address] CA,Total 9.4 mg/dL Normal 8.5-10.1 [facility] Comment on above: Performed By: #### L 500.2500, L100.0500 #### [facility] [address] [place], [address] Chloride [Moles/Vol] 102 mmol/L Normal 98-107 [facility] Comment on above: Performed By: #### L 500.2500, L100.0500 #### [facility] [address] [place], [address] CO2 [Moles/Vol] 25.0 mmol/L Normal 21.0-32.0 [facility] Comment on above: Performed By: #### L 500.2500, L100.0500 #### [facility] [address] [place], [address] Creatinine [Mass/Vol] 1.01 mg/dL Normal 0.70-1.30 [facility] Comment on above: Result Comment: The validity of the calculated GFR GFRAA in patients over 70 years has not been determined. Clinical correlation is essential. Performed By: #### L 500.2500, L100.0500 #### [facility] [address] [place], [address] ECRCL 74.94 ml/min Normal [facility] Comment on above: Performed By: #### L 500.2500, L100.0500 #### [facility] [address] [place], [address] EST GFR - AA 95 mL/min Normal >60 [facility] Comment on above: Result Comment: Afri can Nicaraguan GFR Calc Performed By: #### L 500.2500, L100.0500 #### [facility] [address] [place], [address] GAP 7 Normal 5-15 [facility] Comment on above: Performed By: #### L 500.2500, L100.0500 #### [facility] [address] [place], [address] GFR/1.73 sq M.predicted among non-blacks MDRD (S/P/Bld) [Vol rate/Area] 79 mL/min/{1.73_m2} Normal >60 [facility] Comment on above: Result Comment: Non- GFR Calc Performed By: #### L 500.2500, L100.0500 #### [facility] [address] [place], [address] Glucose [Mass/Vol] 139 mg/dL High 74-106 [facility] Comment on above: Result Comment: Fast ing Glucose result greater than or equal to 126 mg/dL suggests DIABETES MELLITUS per A.D.A. criteria. Performed By: #### L 500.2500, L100.0500 #### [facility] [address] [place], [address] Potassium [Moles/Vol] 3.9 mmol/L Normal 3.5-5.1 [facility] Comment on above: Performed By: #### L 500.2500, L100.0500 #### [facility] [address] [place], [address] Sodium [Moles/Vol] 134 mmol/L Low 136-145 [facility] Comment on above: Performed By: #### L 500.2500, L100.0500 #### [facility] [address] [place], [address] Urea nitrogen [Mass/Vol] 14 mg/dL Normal 7-18 [facility] Comment on above: Performed By: #### L 500.2500, L100.0500 #### [facility] [address] [place], [address] CBC W/Diff, Automatedon 05-19 0-2023 Absolute Lymph 1.34 X10 3/uL Normal 0.83-4.51 [facility] Comment on above: Performed By: #### L 500.2500, L100.0500 #### [facility] [address] [place], [address] Absolute Neut 12.2 X10 3/uL High 2.0-7.7 [facility] Comment on above: Performed By: #### L 500.2500, L100.0500 #### [facility] [address] [place], [address] Basophils/100 WBC (Bld) 0.3 % Normal 0-1 [facility] Comment on above: Performed By: #### L 500.2500, L100.0500 #### [facility] [address] [place], [address] Eosinophils/100 WBC (Bld) 0.1 % Normal 0-5 [facility] Comment on above: Performed By: #### L 500.2500, L100.0500 #### [facility] [address] [place], [address] Erythrocyte distribution width (RBC) [Ratio] 13.0 % Normal 11.6-14.6 [facility] Comment on above: Performed By: #### L 500.2500, L100.0500 #### [facility] [address] [place], [address] Hematocrit (Bld) [Volume fraction] 44.4 % Normal 40-54 [facility] Comment on above: Performed By: #### L 500.2500, L100.0500 #### [facility] [address] [place], [address] Hemoglobin (Bld) [Mass/Vol] 14.9 g/dL Normal 13.0-16.5 [facility] Comment on above: Performed By: #### L 500.2500, L100.0500 #### [facility] [address] [place], [address] IG% 0.600 Normal 0.0-0.9 [facility] Comment on above: Result Comment: IG% - Immature Granulocytes (promyelocytes, myelocytes and metamyelocytes) > 1% indicates that a LEFT SHIFT is Present. Performed By: #### L 500.2500, L100.0500 #### [facility] [address] [place], [address] Lymphocytes/100 WBC (Bld) 9.2 % Low 19-41 [facility] Comment on above: Performed By: #### L 500.2500, L100.0500 #### [facility] [address] [place], [address] MCH (RBC) [Entitic mass] 32.2 pg High 27.0-32.0 [facility] Comment on above: Performed By: #### L 500.2500, L100.0500 #### [facility] [address] [place], [address] MCHC (RBC) [Mass/Vol] 33.6 g/dL Normal 32-36 [facility] Comment on above: Performed By: #### L 500.2500, L100.0500 #### [facility] [address] [place], [address] MCV (RBC) [Entitic vol] 95.9 fL High 80-94 [facility] Comment on above: Performed By: #### L 500.2500, L100.0500 #### [facility] [address] [place], [address] Monocytes/100 WBC (Bld) 6.5 % Normal 0-10 [facility] Comment on above: Performed By: #### L 500.2500, L100.0500 #### [facility] [address] [place], [address] Neutrophils/100 WBC (Bld) 83.3 % High 47-70 [facility] Comment on above: Performed By: #### L 500.2500, L100.0500 #### [facility] [address] [place], [address] Nucleated RBC (Bld) [#/Vol] 0 10*3/uL Normal 0-5 [facility] Comment on above: Performed By: #### L 500.2500, L100.0500 #### [facility] [address] [place], [address] Platelet mean volume (Bld) [Entitic vol] 9.4 fL Normal 6.2-12.0 [facility] Comment on above: Performed By: #### L 500.2500, L100.0500 #### [facility] [address] [place], [address] Platelets (Bld) [#/Vol] 367 10*3/uL Normal 150-450 [facility] Comment on above: Performed By: #### L 500.2500, L100.0500 #### [facility] [address] [place], [address] RBC (Bld) [#/Vol] 4.63 10*6/uL Normal 4.6-6.2 [facility] Comment on above: Performed By: #### L 500.2500, L100.0500 #### [facility] [address] [place], [address] RDW SD 45.8 fl High 35.1-43.9 [facility] Comment on above: Performed By: #### L 500.2500, L100.0500 #### [facility] [address] [place], [address] WBC (Bld) [#/Vol] 14.6 10*3/uL High 4.4-11.0 [facility] Comment on above: Performed By: #### L 500.2500, L100.0500 #### [facility] [address] [place], [address] Magnesiumon 05-28-2024 Magnesium [Mass/Vol] 2.3 mg/dL Normal 1.6-2.6 [facility] Comment on above: Performed By: #### L 500.2500, L100.0500 #### [facility] [address] [place], [address] Phosphoruson 05-28-2024 Phosphate [Mass/Vol] 4.1 mg/dL Normal 2.5-4.9 [facility] Comment on above: Performed By: #### L 500.2500, L100.0500 #### [facility] [address] [place], [address] Thyroid Stim Hormone (TSH)on 05-28-2024 TSH 0.502 uIU/mL Normal 0.358-3.740 [facility] Comment on above: Performed By: #### L 500.2500, L100.0500 #### [facility] [address] [place], [address] 12 Lead EKGon 05-27-2024 12 Lead EKG [facility] Services [address] [place] [address] 12 Lead EKG 05/27/24 0728 MR#: [id number] Acct: [id number] Name: MELCHOR LYLE Rep #: [id number] : 1960 63 From: Vance Gomez MD Attending Dr: Dr. Madiha Razo MD Status: ADM IN Ordering Dr: Mike Headley DO Date: 05/27/24 Location: [facility] Sex: M C Admitted: 05/27/24 Test Reason : SOB Blood Pressure : / mmHG Vent. Rate : 096 BPM Atrial Rate : 096 BPM P-R Int : 168 ms QRS Dur : 068 ms QT Int : 324 ms P-R-T Axes : 031 030 052 degrees QTc Int : 409 ms Normal sinus rhythm Normal ECG Confirmed by NADINE TERAN, VANCE ([id number]), production editor HUMZA CANO ([id number]) on 05/28/2024 7:34:34 AM Referred By: DH Confirmed By:VANCE GOMEZ MD 05/28/24 0734 Date Vance oGmez MD CC: Dr. Mike Headley DO; Dr. Madiha Razo MD; [facility] Signed Normal [facility] BNP,B-Type NATRIURETIC PEPTI Jeovany 05-27-2024 Natriuretic peptide B (Bld) [Mass/Vol] 6.5 pg/mL Normal 0-100 [facility] Comment on above: Performed By: #### L 500.2500, L100.0500 #### [facility] [address] [place], [address] Basic Metabolic Profile (BMP )on 05-27-2024 BUN/CRE 12.8 RATIO Normal 10-20 [facility] Comment on above: Order Comment: 'TROP ' Serial specimen #1, #2 or #3: 1 Performed By: #### L 500.2500, L100.0500 #### [facility] [address] [place], [address] CA,Total 9.6 mg/dL Normal 8.5-10.1 [facility] Comment on above: Order Comment: 'TROP ' Serial specimen #1, #2 or #3: 1 Performed By: #### L 500.2500, L100.0500 #### [facility] [address] [place], [address] Chloride [Moles/Vol] 102 mmol/L Normal 98-107 [facility] Comment on above: Order Comment: 'TROP ' Serial specimen #1, #2 or #3: 1 Performed By: #### L 500.2500, L100.0500 #### [facility] [address] [place], [address] CO2 [Moles/Vol] 27.0 mmol/L Normal 21.0-32.0 [facility] Comment on above: Order Comment: 'TROP ' Serial specimen #1, #2 or #3: 1 Performed By: #### L 500.2500, L100.0500 #### [facility] [address] [place], [address] Creatinine [Mass/Vol] 1.09 mg/dL Normal 0.70-1.30 [facility] Comment on above: Order Comment: 'TROP ' Serial specimen #1, #2 or #3: 1 Result Comment: The validity of the calculated GFR GFRAA in patients over 70 years has not been determined. Clinical correlation is essential. Performed By: #### L 500.2500, L100.0500 #### [facility] [address] [place], [address] ECRCL 70.18 ml/min Normal [facility] Comment on above: Order Comment: 'TROP ' Serial specimen #1, #2 or #3: 1 Performed By: #### L 500.2500, L100.0500 #### [facility] [address] [place], [address] EST GFR - AA 87 mL/min Normal >60 [facility] Comment on above: Order Comment: 'TROP ' Serial specimen #1, #2 or #3: 1 Result Comment: Afri can Nicaraguan GFR Calc Performed By: #### L 500.2500, L100.0500 #### [facility] [address] [place], [address] GAP 8 Normal 5-15 [facility] Comment on above: Order Comment: 'TROP ' Serial specimen #1, #2 or #3: 1 Performed By: #### L 500.2500, L100.0500 #### [facility] [address] [place], [address] GFR/1.73 sq M.predicted among non-blacks MDRD (S/P/Bld) [Vol rate/Area] 72 mL/min/{1.73_m2} Normal >60 [facility] Comment on above: Order Comment: 'TROP ' Serial specimen #1, #2 or #3: 1 Result Comment: Non- GFR Calc Performed By: #### L 500.2500, L100.0500 #### [facility] [address] [place], [address] Glucose [Mass/Vol] 157 mg/dL High 74-106 [facility] Comment on above: Order Comment: 'TROP ' Serial specimen #1, #2 or #3: 1 Result Comment: Fast ing Glucose result greater than or equal to 126 mg/dL suggests DIABETES MELLITUS per A.D.A. criteria. Performed By: #### L 500.2500, L100.0500 #### [facility] [address] [place], [address] Potassium [Moles/Vol] 4.4 mmol/L Normal 3.5-5.1 [facility] Comment on above: Order Comment: 'TROP ' Serial specimen #1, #2 or #3: 1 Performed By: #### L 500.2500, L100.0500 #### [facility] [address] [place], [address] Sodium [Moles/Vol] 137 mmol/L Normal 136-145 [facility] Comment on above: Order Comment: 'TROP ' Serial specimen #1, #2 or #3: 1 Performed By: #### L 500.2500, L100.0500 #### [facility] [address] [place], [address] Urea nitrogen [Mass/Vol] 14 mg/dL Normal 7-18 [facility] Comment on above: Order Comment: 'TROP ' Serial specimen #1, #2 or #3: 1 Performed By: #### L 500.2500, L100.0500 #### [facility] [address] [place], [address] CBC W/Diff, Automatedon 09-0 9-4 Absolute Lymph 1.40 X10 3/uL Normal 0.83-4.51 [facility] Comment on above: Performed By: #### L 500.2500, L100.0500 #### [facility] [address] [place], [address] Absolute Neut 10.6 X10 3/uL High 2.0-7.7 [facility] Comment on above: Performed By: #### L 500.2500, L100.0500 #### [facility] [address] [place], [address] Basophils/100 WBC (Bld) 0.8 % Normal 0-1 [facility] Comment on above: Performed By: #### L 500.2500, L100.0500 #### [facility] [address] [place], [address] Eosinophils/100 WBC (Bld) 2.9 % Normal 0-5 [facility] Comment on above: Performed By: #### L 500.2500, L100.0500 #### [facility] [address] [place], [address] Erythrocyte distribution width (RBC) [Ratio] 12.8 % Normal 11.6-14.6 [facility] Comment on above: Performed By: #### L 500.2500, L100.0500 #### [facility] [address] [place], [address] Hematocrit (Bld) [Volume fraction] 50.9 % Normal 40-54 [facility] Comment on above: Performed By: #### L 500.2500, L100.0500 #### [facility] [address] [place], [address] Hemoglobin (Bld) [Mass/Vol] 17.0 g/dL High 13.0-16.5 [facility] Comment on above: Performed By: #### L 500.2500, L100.0500 #### [facility] [address] [place], [address] IG% 0.500 Normal 0.0-0.9 [facility] Comment on above: Result Comment: IG% - Immature Granulocytes (promyelocytes, myelocytes and metamyelocytes) > 1% indicates that a LEFT SHIFT is Present. Performed By: #### L 500.2500, L100.0500 #### [facility] [address] [place], [address] Lymphocytes/100 WBC (Bld) 10.6 % Low 19-41 [facility] Comment on above: Performed By: #### L 500.2500, L100.0500 #### [facility] [address] [place], [address] MCH (RBC) [Entitic mass] 32.0 pg Normal 27.0-32.0 [facility] Comment on above: Performed By: #### L 500.2500, L100.0500 #### [facility] [address] [place], [address] MCHC (RBC) [Mass/Vol] 33.4 g/dL Normal 32-36 [facility] Comment on above: Performed By: #### L 500.2500, L100.0500 #### [facility] [address] [place], [address] MCV (RBC) [Entitic vol] 95.7 fL High 80-94 [facility] Comment on above: Performed By: #### L 500.2500, L100.0500 #### [facility] [address] [place], [address] Monocytes/100 WBC (Bld) 5.1 % Normal 0-10 [facility] Comment on above: Performed By: #### L 500.2500, L100.0500 #### [facility] [address] [place], [address] Neutrophils/100 WBC (Bld) 80.1 % High 47-70 [facility] Comment on above: Performed By: #### L 500.2500, L100.0500 #### [facility] [address] [place], [address] Nucleated RBC (Bld) [#/Vol] 0 10*3/uL Normal 0-5 [facility] Comment on above: Performed By: #### L 500.2500, L100.0500 #### [facility] [address] [place], [address] Platelet mean volume (Bld) [Entitic vol] 9.0 fL Normal 6.2-12.0 [facility] Comment on above: Performed By: #### L 500.2500, L100.0500 #### [facility] [address] [place], [address] Platelets (Bld) [#/Vol] 359 10*3/uL Normal 150-450 [facility] Comment on above: Performed By: #### L 500.2500, L100.0500 #### [facility] [address] [place], [address] RBC (Bld) [#/Vol] 5.32 10*6/uL Normal 4.6-6.2 [facility] Comment on above: Performed By: #### L 500.2500, L100.0500 #### [facility] [address] [place], [address] RDW SD 45.3 fl High 35.1-43.9 [facility] Comment on above: Performed By: #### L 500.2500, L100.0500 #### [facility] [address] [place], [address] WBC (Bld) [#/Vol] 13.2 10*3/uL High 4.4-11.0 [facility] Comment on above: Performed By: #### L 500.2500, L100.0500 #### [facility] [address] [place], [address] Chest 1 View (Portable)on Chest 1 View (Portable) [facility] Imaging Services [address] [place] [address] Chest 1 View (Portable) MR#: [id number] Acct: [id number] Name: MELCHOR LYLE Rep #: [id number] : 1960 M 63 From: Faustino Alanis PCP: [facility] Status: REG ER Study: Chest 1 View (Portable) Date of Exam: 05/27/24 Exam# [id number] Ordering Dr: Mike Headley DO -[id number] INDICATION: cough/dyspnea EXAMINATION/TECHNIQ UE: X-RAY - [...] EDT , CC: Dr. 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 He sees the [facility] in [place]. No vomiting or diarrhea. Denies any chest pain. [facility] Medical History Hypertension Home Medications ???Medication [...] intact bilaterally (more content not included)... Normal [facility] Gram Stainon 05-27-2024 GS Acceptable Specimen? Yes (<25 Epithelial cells per/lpf) Gram Stain 1+ White Blood Cells 2+ Epithelial cells 3+ Gram positive cocci in chains and clusters 1+ Gram positive rods 1+ Gram negative rods Normal [facility] Comment on above: Performed By: #### L 500.2500, L100.0500 #### [facility] [address] [facility] [place], [place], [address] H AND P Exam - Hospitaliston 05-27-2024 H&P Exam - Hospitalist [facility] Medical Records Department [address] [place] [address] H P Exam - Hospitalist 05/27/24 1001 MR#: [id number] Acct: [id number] Name: MELCHOR LYLE Rep #: [id number] : 1960 63 From: Madiha Razo MD PCP: [facility] Status:[facility] - General General Date of Admission: 05/27/24 Date of Service: 05/27/24 Chief Complaint: Increasing shortness of breath HPI Narrative MELCHOR LYLE, is a 63 M with seasonal allergies and hypertension as well as suspected COPD and tobacco use who presented to [facility] ED 05/27/2024 with increasing shortness [...] denies any other new or acute complaints. [facility] Medical History Hypertension Home Medications [...] edema Musc (more content not included)... Normal [facility] L501.4020on 05-27-2024 TROPONIN-I HS 5 pg/mL Normal 3.0-78.0 [facility] Comment on above: Order Comment: 'TROP ' Serial specimen #1, #2 or #3: 1 Result Comment: Michaelle michele Note: New Test Units and Gender Specific Reference Ranges. For more information see Policy Stat Procedure [place] High Sensitivity Troponin (TNIH) and attachments. Performed By: #### L 500.2500, L100.0500 #### [facility] [address] [place], [address] M100.678on 05-27-2024 M100.678 Pending SARS-CoV-2 (COVID 19) Negative INFLUENZA A Negative INFLUENZA B Negative RSV PCR Negative Normal [facility] Comment on above: Performed By: #### L 500.2500, L100.0100 #### [facility] [address] [place], [place], [address] RESPIRATORY PANEL MOLECULARo n 05-27-2024 RP PANEL [...] Not Detected RSV B Not Detected Normal [facility] Comment on above: Performed By: #### L 500.2500, L100.0100 #### [facility] [address] [facility] [address] [place], [place], [id number] Absolute lymphocyte countOrd ered By: Linsey Spivey on 05-13-2023 Lymphocytes Auto (Unsp spec) [#/Vol] 0.84 10*3/uL 0.83-4.51 [facility] Basophil percentageOrdered B y: Linsey Patric on 05-13-2023 Basophils/100 WBC (Bld) 0.3 % 0-1 [facility] Bilirubin [Mass/Vol] 0.50 mg/dL 0.20-1.00 [facility] Comment on above: For patients on eltr ombopag therapy, use of Dimension [place] TBIL is not recommended. Chloride [Moles/Vol] 99 mmol/L 98-107 [facility] Eosinophils/100 WBC (Bld) 0.0 % 0-5 [facility] Glucose [Mass/Vol] 148 mg/dL 74-106 [facility] Comment on above: Fasting Glucose resu lt greater than or equal to 126 mg/dL suggests DIABETES MELLITUS per A.D.A. criteria. Neutrophils (Bld) [#/Vol] 10.6 10*3/uL 2.0-7.7 [facility] Neutrophils/100 WBC (Bld) 90.1 % 47-70 [facility] Potassium [Moles/Vol] 4.5 mmol/L 3.5-5.1 [facility] Protein [Mass/Vol] 8.6 g/dL 6.4-8.2 [facility] Sodium [Moles/Vol] 135 mmol/L 136-145 [facility] WBC (Bld) [#/Vol] 11.7 10*3/uL 4.4-11.0 [facility] Blood erythrocytes count (nu mber/volume)Ordered By: Linsey Spivey on 05-13-2023 RBC (Bld) [#/Vol] 4.74 10*6/uL 4.6-6.2 [facility] Blood hemoglobin measurement (mass/volume)Ordered By: Linsey Spivey on 05-13-2023 Hemoglobin (Bld) [Mass/Vol] 15.4 g/dL 13.0-16.5 [facility] Blood lymphocytes/100 leukoc ytesOrdered By: Linsey Spivey on 05-13-2023 Lymphocytes/100 WBC (Bld) 7.2 % 19-41 [facility] Blood monocytes/100 leukocyt esOrdered By: Linsey Spivey on 05-13-2023 Monocytes/100 WBC (Bld) 1.5 % 0-10 [facility] Blood platelet mean volumeOr dered By: Linsey Spivey on 05-13-2023 Platelet mean volume (Bld) [Entitic vol] 9.6 fL 6.2-12.0 [facility] Determination of erythrocyte mean corpuscular volume (MCV)Ordered By: Linsey Spivey on 05-13-2023 MCV (RBC) [Entitic vol] 98.9 fL 80-94 [facility] Hematocrit Auto (Bld) [Volum e fraction]Ordered By: Linsey Spivey on 05-13-2023 Hematocrit (Bld) [Volume fraction] 46.9 % 40-54 [facility] - Chemistry and C hemistry - challengeOrdered By: Linsey Spivey on 05-13-2023 ALP [Catalytic activity/Vol] 73 U/L 45-117 [facility] ALT [Catalytic activity/Vol] 38 U/L 16-61 [facility] CO2 [Moles/Vol] 28.0 mmol/L 21.0-32.0 [facility] Globulin (S) [Mass/Vol] 4.8 g/dL 2.2-4.2 [facility] Urea nitrogen/Creatinine [Mass ratio] 15.4 mg/mg 10-20 [facility] - Hematology and Cell countsOrdered By: Linsey Spivey on 05-13-2023 Erythrocyte distribution width (RBC) [Entitic vol] 48.9 fL 35.1-43.9 [facility] Erythrocyte distribution width (RBC) [Ratio] 13.4 % 11.6-14.6 [facility] Immature granulocytes/100 WBC (Bld) 0.900 % 0.0-0.9 [facility] Comment on above: IG% - Immature Granu locytes (promyelocytes, myelocytes and metamyelocytes) > 1% indicates that a LEFT SHIFT is Present. MCH (RBC) [Entitic mass] 32.5 pg 27.0-32.0 [facility] Nucleated RBC/100 WBC (Bld) [Ratio] 0 % 0-5 [facility] MCHC Auto (RBC) [Mass/Vol]Or dered By: Linsey Spivey on 05-13-2023 MCHC (RBC) [Mass/Vol] 32.8 g/dL 32-36 [facility] No Panel InformationOrdered By: Linsey Spivey on 05-13-2023 Estimated Creatinine Clearance Calc 66.92 ml/min [facility] Estimated GFR (MDRD) Amer 100 mL/min >60 [facility] Comment on above: GFR Calc Estimated GFR (MDRD) Non-Af Amer 82 mL/min >60 [facility] Comment on above: Non- GFR Calc Platelets bldOrdered By: Abraham Spivey on 05-13-2023 Platelets (Bld) [#/Vol] 300 10*3/uL 150-450 [facility] Serum or plasma albumin doni urement (mass/volume)Ordered By: Linsey Spivey on 05-13-2023 Albumin [Mass/Vol] 3.8 g/dL 3.2-5.0 [facility] Serum or plasma albumin/glob ulin mass ratioOrdered By: Linsey Spivey on 05-13-2023 Albumin/Globulin [Mass ratio] 0.8 {ratio} 0.9-2.4 [facility] Serum or plasma calcium doni urement (mass/volume)Ordered By: Linsey Spivey on 05-13-2023 Calcium [Mass/Vol] 9.4 mg/dL 8.5-10.1 [facility] Serum or plasma creatinine m easurement (mass/volume)Ordered By: Linsey Spivey on 05-13-2023 Creatinine [Mass/Vol] 0.97 mg/dL 0.70-1.30 [facility] Comment on above: The validity of the calculated GFR & GFRAA in patients over 70 years has not been determined. Clinical correlation is essential. Serum or plasma urea nitroge n measurement (mass/volume)Ordered By: Linsey Spivey on 05-13-2023 Urea nitrogen [Mass/Vol] 15 mg/dL 7-18 [facility] Thin prep Papanicolaou smear with manual screeningOrdered By: [facility] Patric on 05-13-2023 Thin prep Papanicolaou smear with manual screening 20 U/L 15-37 [facility] Thin prep Papanicolaou smear with manual screening 8 5-15 [facility] Gram stain for investigation of transfusion reactionOrdered By: Chino Sandoval on 05-12-2023 Microscopic observation Gram stain Nom (Unsp spec) [facility] Serum procalcitonin measurem entOrdered By: Linsey Spivey on 05-12-2023 Procalcitonin [Mass/Vol] 0.10 ng/mL 0.00-0.09 [facility] Comment on above: A procalcitonin [...] INR Coag (Bld) [Relative time] 1.0 {INR} [facility] - CoagulationOrde red By: Frederick Cervantes on 05-11-2023 aPTT Coag (Bld) [Time] 26.3 s 24.1-36.2 [facility] PT Coag (PPP) [Time] 13.2 s 11.7-14.9 [facility] No Panel InformationOrdered By: Frederick Cervantes on 05-11-2023 Troponin I High Sensitivity 4 pg/mL 3.0-78.0 [facility] Comment on above: Please Note: New Valeria t Units and Gender Specific Reference Ranges. For more information see Policy Stat Procedure [place] High Sensitivity Troponin (TNIH) and attachments. D-Dimer Quantitative (PE/DVT) 0.33 FEU/ug/m 0.27-0.49 [facility] Comment on above: NORMAL D-Dimer level (<0.50) indicates no DVT or PE. Vital Signs Date Time Vital Sign Value Performing Clinician Faci lity 04-22-2025 12:47-0400 Body temperature 98.3 [degF] [facility] 04-22-2025 12:47-0400 Diastolic blood pressure 77 mm[Hg] [facility] 04-22-2025 12:47-0400 Heart rate 102 /min [facility] 04-22-2025 12:47-0400 Respiratory rate 18 /min [facility] 04-22-2025 12:47-0400 SaO2% (BldA) [Mass fraction] 92 % [facility] 04-22-2025 12:47-0400 Systolic blood pressure 150 mm[Hg] [facility] 04-22-2025 09:13-0400 Inhaled oxygen flow rate 3 L/min [facility] 04-22-2025 05:20-0400 Body mass index (BMI) [Ratio] 32.3 kg/m2 [facility] 04-22-2025 05:20-0400 Body weight 89.5 kg [facility] 04-21-2025 09:14-0400 Body height 166.37 cm [facility] 04-20-2025 15:43-0400 Body temperature 97.8 [degF] [facility] 04-20-2025 15:43-0400 Diastolic blood pressure 86 mm[Hg] [facility] 04-20-2025 15:43-0400 Heart rate 98 /min [facility] 04-20-2025 15:43-0400 Inhaled oxygen flow rate 2 L/min [facility] 04-20-2025 15:43-0400 Respiratory rate 22 /min [facility] 04-20-2025 15:43-0400 SaO2% (BldA) [Mass fraction] 95 % [facility] 04-20-2025 15:43-0400 Systolic blood pressure 149 mm[Hg] [facility] 04-20-2025 15:42-0400 Body height 166.37 cm [facility] 04-20-2025 15:42-0400 Body mass index (BMI) [Ratio] 31.9 kg/m2 [facility] 04-20-2025 15:42-0400 Body weight 88.4 kg [facility] 05-13-2023 12:08-0400 SaO2% (BldA) [Mass fraction] 91 % [facility] 05-13-2023 11:17-0400 Heart rate 89 /min [facility] 05-13-2023 11:17-0400 Respiratory rate 20 /min [facility] 05-13-2023 09:05-0400 Inhaled oxygen flow rate 2 L/min [facility] 05-13-2023 09:04-0400 Body temperature 98.3 [degF] [facility] 05-13-2023 09:04-0400 Diastolic blood pressure 72 mm[Hg] [facility] 05-13-2023 09:04-0400 Systolic blood pressure 143 mm[Hg] [facility] 05-11-2023 20:15-0400 Body height 165.1 cm [facility] 05-11-2023 20:15-0400 Body mass index (BMI) [Ratio] 31.1 kg/m2 [facility] 05-11-2023 20:15-0400 Body weight 84.8 kg [facility] Encounters Encounter Date Encounter Type Care Provider Facility Start: 04-22-2025 Non-patient / Non-visit Dr. Luis stanford MD -[facility] Work Phone: Start: 04-21-2025 Non-patient / Non-visit Dr. Eric NARAYANAN -[facility] Work Phone: Start: 04-20-2025 ambulatory [facility] Start: 04-20-2025 End: 04-22-2025 Evaluation and management of inpatient Dr. Madiha Razo MD -[facility] Work Phone: Start: 05-27-2024 End: 05-29-2024 Evaluation and management of inpatient [facility] Facility:[facility] Start: 05-27-2024 ambulatory Madiha Razo Facility:[facility] Start: 05-13-2023 Non-patient / Non-visit [facility] Work Phone: Start: 05-12-2023 Non-patient / Non-visit [facility] Start: 05-12-2023 End: 05-13-2023 Evaluation and management of inpatient [facility] Work Phone: Start: 05-11-2023 Non-patient / Non-visit [facility] Work Phone: Procedures Date Procedure Procedure Detail Performing Clinician Start: 04-21-2025 Estimated creatinine clearance [facility] Start: 04-20-2025 Gram stain microscopy [facility] Start: 04-20-2025 Nucleic acid assay [facility] Start: 04-20-2025 SARS-CoV-2, Influenz a & RSV (PCR) [facility] Start: 04-20-2025 Estimated creatinine clearance [facility] Start: 04-20-2025 Plain [facility] Start: 05-12-2023 Investigation of tra nsfusion reaction [facility] Start: 05-11-2023 Plain chest X-ray [facility] spital Plan of Treatment Date Care Activity Detail Author Start: 04-25-2025 Complete blood count [facility] Start: 04-24-2025 Complete blood count [facility] Start: 04-23-2025 Complete blood count [facility] Start: 04-23-2025 Serum inorganic phosphate measurement [facility] Start: 04-22-2025 Patient discharge [facility] Start: 04-20-2025 [facility] Start: 04-20-2025 Following clinical pathway protocol [facility] Start: 04-20-2025 Assessment of risk of venous thromboembolism [facility] Start: 04-20-2025 Bacteria identified in Sputum by Culture [facility] Start: 04-20-2025 Incentive spirometry [facility] Start: 04-20-2025 Inhalation therapy procedure [facility] Start: 04-20-2025 Insertion of catheter into peripheral vein [facility] Start: 04-20-2025 Measuring intake and output [facility] Start: 04-20-2025 Oxygen therapy [facility] Start: 04-20-2025 Providing care according to standard [facility] Start: 04-20-2025 Provision of activity privileges [facility] Start: 04-20-2025 Referral to service [facility] Start: 04-20-2025 Taking nasal swab [facility] Start: 04-20-2025 [facility] Start: 04-20-2025 Respiratory pathogens DNA and RNA panel - Respiratory specimen by LORRAINE with probe detection [facility] Start: 04-20-2025 Verification routine [facility] Start: 04-20-2025 Admission procedure [facility] Start: 04-20-2025 Respiratory Culture Respiratory Culture [facility] Start: 04-20-2025 [facility] Start: 04-20-2025 Consultation [facility] Start: 04-20-2025 Patient referral to dietitian [facility] Start: 05-13-2023 Patient discharge [facility] Start: 05-13-2023 [facility] Start: 05-13-2023 Physiotherapy of chest [facility] Start: 05-12-2023 Respiratory Culture Respiratory Culture [facility] Start: 05-12-2023 Admission procedure [facility] Start: 05-11-2023 Following clinical pathway protocol [facility] Start: 05-11-2023 Ambulation without limitation [facility] Start: 05-11-2023 Assessment of risk of venous thromboembolism [facility] Start: 05-11-2023 Insertion of catheter into peripheral vein [facility] Start: 05-11-2023 Oxygen therapy [facility] Start: 05-11-2023 Providing care according to standard [facility] Start: 05-11-2023 Referral to occupational therapist [facility] Start: 05-11-2023 Referral to service [facility] Start: 05-11-2023 [facility] Start: 05-11-2023 Admission procedure [facility] Start: 05-11-2023 Consultation [facility] Start: 05-11-2023 Inhalation therapy procedure [facility] Anion gap in Serum o r Plasma [facility] Bacteria identified in Unspecified specimen by Respiratory culture [facility] BUN/Creatinine ratio [facility] Calcium [Mass/volume ] in Serum or Plasma [facility] Carbon dioxide, tota l [Moles/volume] in Central venous blood [facility] Creatinine [Mass/vol ume] in Serum or Plasma [facility] Erythrocyte mean corpuscular volume determination [facility] Glucose [Mass/volume ] in Serum or Plasma [facility] Hematocrit [Volume Fraction] of Blood [facility] Hemoglobin [Mass/vol ume] in Blood [facility] Leukocytes [#/volume ] in Blood [facility] Mean corpuscular hem oglobin concentration determination [facility] Mean corpuscular hem oglobin determination [facility] Measurement of renal function [facility] Microorganism identi fied in Unspecified specimen by Culture [facility] Neutrophil count [facility] Neutrophil percent differential count [facility] Patient Education Chronic Lung D isease Infections Discharge Instructions: COPD [facility] Work Phone: Patient referral [facility] Work Phone: Platelets [#/volume] in Blood [facility] Potassium measurement [facility] Red blood cell count [facility] Red cell distributio n width determination [facility] Serum chloride measurement [facility] Sodium measurement [facility] Urea nitrogen [Mass/ volume] in Serum or Plasma [facility] Payers Date Payer Category Payer Medicare [id number] 2025 Unknown [id number] 2024 Self-pay 2024 Unknown [id number] Unknown [id number] 2.16.8 [id number] Unknown [id number] 2.16.8 [id number] Unknown [id number] 2.16.8 [id number] Unknown [id number] 2.16.8 [id number] Unknown [id number] 2.16.8 [id number] Unknown [id number] 2.16.8 [id number] Unknown [id number] 2.16.8 [id number] Unknown [id number] 2.16.8 [id number] Social History Date Type Detail Facility Start: 05-12-2023 Tobacco smoking stat [facility] Unknown if ever smoked [facility] Start: 1960 Sex Assigned At Male [facility] Start: 04-20-2025 End: 04-21-2025 Tobacco smoking status NHIS Smokes tobacco daily (finding) [facility] Goals Date Patient Goal Desired Activity /State Functional Status Date Assessment Result Facility 04-22-2025 Functional status [facility] Work Phone: 05-13-2023 Functional status Ambulates [facility] Work Phone: Mental Status Date Assessment Result Facility 04-22-2025 Cognitive function Voice/Name [facility] Work Phone: 05-13-2023 Cognitive function Voice/Name [facility] Work Phone: Clinical Notes 05-12-2023 to 04-22-2025 Note Date & Type Note Facility 04-22-2025 Hospital Discharg e instructions Additional Instructions Date of Discharge: 04/22/25 [facility] Work Phone: 04-22-2025 Discharge summary Note Date/Time April 22, 2025 11:46am [facility] Medical Records Department [address] [place] [address] Discharge Summary 04/22/2512 MR#: [id number] Acct: [id number] Name: MELCHOR LYLE Rep #:[id number] : 1960 64 From: Luis Hernandez MD PCP: [facility] Status:ADM IN Location: [facility] [id number]- 1 Providers Date of Admission: 04/20/25 Date of Discharge: 04/22/25 Primary Care Physician: [facility] Reason For Visit: HYPXIA AND COPD [...] is a 64-year-old male who presented to [facility] ED on 04/21/2025 with worsening shortness of breath and cough. 1. Acute hypoxia secondary to acute exacerbation of COPD ?Admitted to a monitored bed managed with bronchodilator treatment systemic steroid and antibiotics. Patient oxygen saturation on admission was 86% on roomair. Patient had previously been discharged home with home oxygen however due to high cost ([place] did not, with patient continuous use of [...] Attending Provider: Luis Hernandez Primary Care Provider: [facility] Consulting Providers: Madiha Razo; Chino Sandoval Discharge [...] Self Care Charges/Coding Visit Charges Inpatient E&M: 20443 Disch Hosp >30min 04/22/25 1146 <Electronically signed by Luis Hernandez MD> Cosigner Signature (if applicable): CC: Dr. Luis Hernandez MD; [facility]~ Signed [facility] Work Phone: 1(893) 561-253208-05-2025 Consult note Author Lakeshia Hope [facility] Note Date/Time April 22, 2025 11: 05am [facility] Medical Records Department [address] [place] [address] Counseling Note - Pharmacy 04/22/25 1104 MR#: [id number] Acct: [id number] Name: MELCHOR LYLE Kathrine Rep #:[id number] : 1960 64 From: Lakeshia Hope PCP: [facility] Status:ADM IN Y Location: [facility] [id number]- 1 Pharmacy [facility] Counseling Pharmacy Service has performed discharge medication [...] Signature (if applicable): Date CC: ~ Signed [facility] Work Phone: 1(224) 562-940208-05-2025 Progress note Author Luis Hernandez [facility] Note Date/Time April 22, 2025 11: 00am [facility] Medical Records Department [address] [place] [address] Progress Note - Hospitalist 04/22/25 1058 MR#: [id number] Acct: [id number] Name: VALDOMELCHOR Kathrine Rep #:[id number] : 1960 64 From: Luis Hernandez MD PCP: [facility] Status:ADM IN Location: [place] [address] Reason for Visit Chief Complaint: Increasing SOB Subjective Subjective Patient is a 64-year-old male who presented to [facility] ED on 04/21/2025 with worsening [...] is a 64-year-old male who presented to [facility] ED on 04/21/2025 with worsening [...] 36 Minutes Charges/Coding Visit Charges Inpatient E&M: 18726 Subs Hosp L2 Reason for DC delay: Pt / family delay 04/22/25 1100 <Electronically signed by Luis Hernandez MD> Cosigner Signature (if applicable): CC: ~ Signed [facility] Work Phone: 1(299) 815-406908-05-2025 Discharge summary [facility] Medical Records Department [address] [place] [address] Discharge Summary 04/22/25 0912 MR#: [id number] Acct: [id number] Name: MELCHOR LYLE Rep #:[id number] : 1960 64 From: Luis Hernandez MD PCP: [facility] Providers Date of Admission: 04/20/25 Date of Discharge: 04/22/25 Primary Care Physician: [facility] Reason For Visit: HYPXIA AND COPD [...] is a 64-year-old male who presented to [facility] ED on 04/21/2025 with worsening [...] Attending Provider: Luis Hernandez Primary Care Provider: [facility] Consulting Providers: Madiha Razo; Chino Sandoval Discharge [...] Follow Up: [facility] [Primary Care Provider] - Disposition Disposition (needs filled in before D/C Order can be placed): Home, Self Care Charges/Coding Visit Charges Inpatient E&M: 44271 Disch Hosp >30min 04/22/25 1146 Cosigner Signature (if applicable): CC: Dr. Luis Hernandez MD; [facility]~ Signed [facility]08-05-2025 Consult note [facility] Medical Records Department [address] [place] [address] Counseling Note - Pharmacy 04/22/25 1104 MR#: [id number] Acct: [id number] Name: MELCHOR LYLE Rep #:[id number] : 1960 64 From: Lakeshia Hope PCP: [facility] Status:ADM IN Y Location: [facility] [id number]- 1 Pharmacy [place] [facility] Counseling Pharmacy Service has performed [...] Signature (if applicable): Date CC: ~ Signed [facility]08-05-2025 Progress note [facility] Medical Records Department [address] [place] [address] Progress Note - Hospitalist 04/22/25 1058 MR#: [id number] Acct: [id number] Name: MELCHOR LYLE Rep #:[id number] : 1960 64 From: Luis Hernandez MD [facility] Status:ADM IN Location: [place] [address]- 1 Reason for Visit Chief Complaint: Increasing SOB Subjective Subjective Patient is a 64-year-old male who presented to [facility] ED on 04/21/2025 with worsening [...] is a 64-year-old male who presented to [facility] ED on 04/21/2025 with worsening [...] 36 Minutes Charges/Coding Visit Charges Inpatient E&M: 31289 Subs Hosp L2 Reason for DC delay: Pt / family delay 04/22/25 1100 Cosigner Signature (if applicable): CC: ~ Signed [facility]08-05-2025 [facility] Medical Records Department [address] [place] [address] Discharge Summary 04/22/25911 MR#: [id number] Acct: [id number] Name: MELCHOR LYLE Rep #: [id number] : 1960 64 From: Luis Hernandez MD [facility] Status:ADM IN Location: [facility] [id number] Providers Date of Admission: 04/20/25 Date of Discharge: 04/22/25 Primary Care Physician: [facility] Reason For Visit: HYPXIA AND COPD [...] is a 64-year-old male who presented to [facility] ED on 04/21/2025 with worsening [...] Attending Provider: Luis Hernandez Primary Care Provider: [facility] Consulting Providers: Madiha Razo; Chino Sandoval Discharge [...] Care Charges/Coding Visit Charges Inpatient E M: 06142 Disch Hosp >30min 04/22/ (more content not included)...[facility]08-04-2025 Progress note Author Chino Sandoval [facility] Note Date/Time April 21, 2025 2:5 6pm [facility] Medical Records Department [address] [place] [address] Progress Note - Hospitalist 04/21/25 1054 MR#: [id number] Acct: [id number] Name: MELCHOR LYLE Kathrine Rep #:[id number] : 1960 64 From: Chino castano DO [facility] Status:ADM IN Location: [place] [address] Reason for Visit Chief Complaint: Increasing SOB [...] 80.1 H, Lymph % (Auto) 9.1 L, [place] % (Auto) 7.4, Eos % (Auto) 2.3, [...] 90.8 H, Lymph % (Auto) 6.4 L, [place] % (Auto) 2.0, Eos % (Auto) 0.1, [...] 12:14 IMPRESSION: No Acute Findings. Reading Location: [facility] Physical Exam Const alert, oriented x3 and [...] is a 64-year-old male who presented to [facility] ED on 04/21/2025 with worsening [...] years for COPD exacerbations. Follows with the [place]. Oxygen saturations typically run in the low 90s at rest and drop to the mid to high 80swith exertion at home. Has previously been discharged with home oxygen but due to high cost ([place] did not cover as he is a [...] 35 minutes. Charges/Coding Visit Charges Inpatient E&M: 77713 Subs Hosp L2 04/21/25 4829 <Electronically signed by Chino Sandoval DO> Cosigner Signature (if applicable): CC: ~ Signed [facility] Work Phone: 1(746) 178-179908-04-2025 Progress note [facility] Medical Records Department [address] [place] [address] Progress Note - Hospitalist 04/21/25 1054 MR#: [id number] Acct: [id number] Name: MELCHOR LYLE Rep #:[id number] : 1960 64 From: Chino castano DO PCP: [facility] Status:ADM IN Location: [place] [address] Reason for Visit Chief Complaint: Increasing SOB [...] 80.1 H, Lymph % (Auto) 9.1 L, [place] % (Auto) 7.4, Eos % (Auto) 2.3, [...] 90.8 H, Lymph % (Auto) 6.4 L, [place] % (Auto) 2.0, Eos % (Auto) 0.1, [...] 12:14 IMPRESSION: No Acute Findings. Reading Location: [id number] Physical Exam Const alert, oriented x3 and [...] is a 64-year-old male who presented to [facility] ED on 04/21/2025 with worsening [...] years for COPD exacerbations. [place] Oxygen saturations typically run in the low 90s at rest and drop to the mid to high 80swith exertion at home. Has previously been discharged with home oxygen butdue to high cost ([place] did not cover as he is a [...] 35 minutes. Charges/Coding Visit Charges Inpatient E&M: 59721 Subs Hosp L2 04/21/25 3152 Cosigner Signature (if applicable): CC: ~ Signed [facility]08-03-2025 Discharge summary Author Minal Castro [facility] Note Date/Time April 20, 2025 9:4 0pm [facility] Medical Records Department [address] [place] [address] Emergency Department Summary 04/20/25 MR#: [id number] Acct: [id number] Name: MELCHOR LYLE Rep #:[id number] : 1960 64 From: Minal JUÁREZ PCP: [facility] Status:ADM IN Location: [place] [id number]- 1 [facility] <JEY Sheppard - Last Filed: [...] did not approve it for further use. [facility] <JEY Sheppard - Last Filed: 04/20/25 13:50> [facility] Medical History (Updated 04/20/25 @ 16:03 by Arielle Diehl) Kidney stones Smoker Hypertension Home Medications ?Medication ?Instructions ?Recorded ?Last Taken ?Type diphenhydramine HCl 25 mg tablet 50 mg PO BID PRN THUY RGIES 05/11/23 04/19/25 History (Allergy) losartan 50 mg tablet (Cozaar) 50 mg PO DAILY BLOOD MO ESSURE 05/11/23 04/19/25 History albuterol sulfate 90 [...] Oxygen Flow Rate (L/min) 2 [address] <Dr. Onela Ng DO - Last Filed: 04/20/25 21:40> [...] 80.1 H Lymph % (Auto) 9.1 L [place] % (Auto) 7.4 Eos % (Auto) 2.3 [...] 12:14 IMPRESSION: No Acute Findings. Reading Location: [facility] ED attending interpretation of 1 view chest [...] 80.1 H Lymph % (Auto) 9.1 L [place] % (Auto) 7.4 Eos % (Auto) 2.3 [...] 12:14 IMPRESSION: No Acute Findings. Reading Location: [id number] Discharge Plan Dx/Rx/DC Orders Clinical Impression: Acute exacerbation of chronic obstructive pulmonary disease (COPD), Hypoxia, Tobacco use Disposition Disposition: Acute Care Hospital [facility] Discharge Date/Time: 04/20/25 15:54 What to do if you have Problems For any increased pain, shortness of breath, bleeding, nausea or vomiting, chestpain, or any unexpected problems, contact your Primary Care Provider. Call [facility] ([phone]) or report to the closest Emergency Room. Call 911 if necessary. 04/20/25 1350 <Electronically signed by Minal JUÁREZ> Cosigner Signature (if applicable): 04/20/25 2140 <Electronically signed by Oneal Ng DO> CC: [facility] ~ Signed [facility] Work Phone: 1(939) 360-423908-03-2025 Discharge summary [facility] Medical Records Department [address] [place] [address] Emergency Department Summary 04/20/25 MR#: [id number] Acct: [id number] Name: MELCHOR LYLE Rep #:[id number] : 1960 64 From: Minal JUÁREZ PCP: [facility] Status:ADM IN Location: [place] [address] HPI History of Present Illness Chief Complaint: [...] was discharged with O2 but then his [place] insurance did not a pprove it for further use. [facility] Medical History (Updated 04/20/25 @ 16:03 by Arielle Diehl) Kidney stones Smoker Hypertension Home Medications ?Medication ?Instructions ?Recorded ?Last Taken ?Type diphenhydramine HCl 25 mg tablet 50 mg PO BID PRN THUY RGIES 05/11/23 04/19/25 History (Allergy) losartan 50 mg tablet (Cozaar) 50 mg PO DAILY BLOOD MO ESSURE 05/11/23 04/19/25 History albuterol sulfate 90 [...] 80.1 H Lymph % (Auto) 9.1 L [place] % (Auto) 7.4 Eos % (Auto) 2.3 [...] 12:14 IMPRESSION: No Acute Findings. Reading Location: [facility] ED attending interpretation of 1 view chest [...] 80.1 H Lymph % (Auto) 9.1 L [place] % (Auto) 7.4 Eos % (Auto) 2.3 [...] 12:14 IMPRESSION: No Acute Findings. Reading Location: [facility] Discharge Plan Dx/Rx/DC Orders Clinical Impression: Acute exacerbation of chronic obstructive pulmonary disease (COPD), Hypoxia, Tobacco use Disposition Disposition: [facility] Discharge Date/Time: 04/20/25 15:54 What to do if you have Problems For any increased pain, shortness of breath, bleeding, nausea or vomiting, chestpain, or any unexpected problems, contact your Primary Care Provider. Call [facility] ([phone]) or report tothe closest Emergency Room. Call 911 if necessary. 04/20/25 1350 Cosigner Signature (if applicable): 04/20/25 2140 CC: [facility] ~ Signed [facility]08-03-2025 History and physical note Author Madiha Razo [facility] Note Date/Time April 20, 2025 3:3 0pm [facility] Medical Records Department [address] [place] [address] H&P Exam - Hospitalist 04/20/25 1434 MR#: [id number] Acct: [id number] Name: MELCHOR LYLE Rep #:[id number] : 1960 64 From: Madiha Razo MD PCP: [facility] Status:ADM IN Location: [facility] [id number]- 1 HPI - General General Date of Admission: 04/20/25 Date of Service: 04/20/25 Chief Complaint: Increasing SOB HPI Narrative MELCHOR LYLE, is a 64 M with a history of suspected COPD, tobacco use, hypertension and seasonal allergies who presented to [facility] ED 04/20/2025 due to increasing [...] and steroids but is still significantly struggling. [facility] Medical History Hypertension Home Medications [...] 80.1 H, Lymph % (Auto) 9.1 L, [place] % (Auto) 7.4, Eos % (Auto) 2.3, [...] 12:14 IMPRESSION: No Acute Findings. Reading Location: [facility] Assessment & Plan Assessment/Plan (1) Acute exacerbation [...] Razo MD Charges/Coding Visit Charges Inpatient E&M: 21186 Init Hosp L2 04/20/25 1530 <Electronically signed by Madiha Razo MD> Cosigner Signature (if applicable): CC: Dr. Madiha Razo MD; [facility]~ Signed [facility] Work Phone: 1(240) 327-160108-03-2025 Evaluation note* Diagnosis Onset Date Resolution Status Admit Date Hypoxia acute April 20 2:34pm Acute exacerbation of chroni c obstructive pulmonary disease (COPD) chronic April 20, 2025 2:34pm [facility] Work Phone: 1(311) 183-927008-03-2025 History and physical note [facility] Medical Records Department [address] [place] [address] H&P Exam - Hospitalist 04/20/25 1434 MR#: [id number] Acct: [id number] Name: MELCHOR LYLE Rep #:[id number] : 1960 64 From: Madiha Razo MD PCP: [facility] Status:ADM IN Location: [facility] [id number]- 1 HPI - General General Date of Admission: 04/20/25 Date of Service: 04/20/25 Chief Complaint: Increasing SOB HPI Narrative MELCHOR LYLE, is a 64 M with a history of suspected COPD, tobacco use, hypertension and seasonal allergies who presented to [facility] ED 04/20/2025 due to increasing [...] and steroids but is still significantly struggling. [facility] Medical History Hypertension Home Medications [...] 80.1 H, Lymph % (Auto) 9.1 L, [place] % (Auto) 7.4, Eos % (Auto) 2.3, [...] 12:14 IMPRESSION: No Acute Findings. Reading Location: [facility] Assessment & Plan Assessment/Plan (1) Acute exacerbation [...] Razo MD Charges/Coding Visit Charges Inpatient E&M: 94788 Init Hosp L2 04/20/25 1530 Cosigner Signature (if applicable): CC: Dr. Madiha Razo MD; [facility]~ Signed [facility]08-03-2025 Radiology Diagnostic study note [facility] Imaging Services [address] [place] [address] Chest 1 View (Portable) MR#: [id number] Acct: [id number] Name: VALDOMELCHOR Rep #: [id number] : 1960 M 64 From: Radha Ortiz MD [facility]CP: [facility] Status: PRE ER Study:Chest 1 View (Portable) Date of Exam: 04/20/25 Exam# [id number] Ordering Dr: Minal Escobedo PROCEDURE: CHEST 1 [...] (Portable) IMPRESSION: No Acute Findings. Reading Location: [id number] CC: JEY Sheppard; [facility] ~ Family Day Care Worker: Signed [facility]09-11-2024 [facility] Medical Records Department [address] [place] [address] Discharge Summary 05/29/24 1252 MR#: [id number] Acct: [id number] Name: MELCHOR LYLE Rep #: [id number] : 1960 63 From: Madiha Razo MD PCP: [facility] Status:DIS IN Location: [facility] [id number] Providers Date of Admission: 05/27/24 Date of [...] COPD and tobacco use who presented to [facility] ED 05/27/2024 with increasing shortness [...] -For your continued congestion please obtain Mucinex ndoh-ybu-kyiwuxd to help with your congestion symptoms -Continue [...] 89.1 H, Lymph % (Auto) 6.7 L, [place] % (Auto) 3.0, Eos % (Auto) 0.0, [...] - Final 05/27/24 1 (more content not included)...[facility]08-26-2023 Progress note Author Linsey Spivey [facility] May 13, 2023 12:17pm Note Date/Time May 13, 2023 6: 22am [facility] Medical Records Department [address] [place] [address] Progress Note - Hospitalist 05/13/23 0621 MR#: [id number] Acct: [id number] Name: MELCHOR LYLE Rep #:[id number] : 1960 62 From: Linsey Spivey MD PCP: [facility] Status:ADM IN Location: MS3 UV299-7 Reason for Visit Reason for Visit: Diagnoses [...] appropriate follow-up and takehis medications with the [place] PCP evaluation hopefully within the next 3 [...] use/Pipe Tobacco use who presents to the [facility] ED on 05/11/23 with dyspnea and wheezing [...] Patient reportedly living with his sister and plqugpp-bl-gxq, notable poor hygiene in the ED with concern for bedbugs, case management/social work involved for discharge planning, PT and OT assessments also. #5. Tobacco Abuse: Encouraged cessation, inpatient consultation per RT, NR if desired. #6. DVT prophylaxis: Lovenox. #7. CODE STATUS: Full code. Charges/Coding Visit Charges Inpatient E&M: 05340 Subs Hosp L2 05/13/23 1217 <Electronically signed by Linsey Spivey MD> Cosigner Signature (if applicable): CC: ~ Signed [facility] Work Phone: 1(581) 741-802308-25-2023 Progress note Author [facility] May 12, 2023 3:42pm Note Date/Time May 12, 2023 7: 04am [facility] Medical Records Department [address] [place] [address] Progress Note - Hospitalist 05/12/23703 MR#: [id number] Acct: [id number] Name: MELCHOR LYLE Rep #:[id number] : 1960 62 From: Linsey Spivey MD PCP: [place] [place] Status:ADM IN Location: [place] [address]-1 Reason for Visit Reason for Visit: Diagnoses [...] (Auto) 65.2, Lymph % (Auto) 17.7 L, [place] % (Auto) 8.6, Eos % (Auto) 7.0 [...] use/Pipe Tobacco use who presents to the [facility] ED on 05/11/23 with dyspnea and wheezing [...] Patient reportedly living with his sister and nejsyen-en-cvm, notable poor hygiene in the ED with concern for bedbugs, case management/social work involved for discharge planning, PT and OT assessments also. #5. Tobacco Abuse: Encouraged cessation, inpatient consultation per RT, NR if desired. #6. DVT prophylaxis: Lovenox. #7. CODE STATUS: Full code. Charges/Coding Visit Charges Inpatient E&M: 14192 Subs Hosp L2 05/12/23 1542 <Electronically signed by Linsey Spivey MD> Cosigner Signature (if applicable): CC: ~ Signed [facility] Work Phone: 1(111) 359-574508-25-2023 Discharge summary Author Frederick Cervantes [facility] May 12, 2023 12:50am Note Date/Time May 11, 2023 1: 42pm [facility] Medical Records Department [address] [place] [address] Emergency Department Summary 05/11/23 MR#: [id number] Acct: [id number] Name: MELCHOR LYLE Rep #:[id number] : 1960 62 From: Frederick Lucia PCP: [facility] Status:ADM LYLA Location: [place] [address] HPI History of Present Illness Chief Complaint: [...] immobilization, Recent surgery or Recent travel [facility] Medical History Hypertension Home Medications diphenhydramine [...] (Auto) 65.2 Lymph % (Auto) 17.7 L [place] % (Auto) 8.6 Eos % (Auto) 7.0 [...] sinus rhythm with a rate of 82. MO interval, QRS interval, and QTc intervals were all normal. [place] was normal. There are no acute ST [...] pulmonary disease Disposition Disposition: Acute Care Hospital [facility] Discharge Date/Time: 05/11/23 19:34 What to do if you have Problems For any increased pain, shortness of breath, bleeding, nausea or vomiting, chestpain, or any unexpected problems, contact your Primary Care Provider. Call [facility] ([phone]) or report to the closest Emergency Room. Call 911 if necessary. 05/12/23 0050 <Electronically signed by Frederick Cervantes DO> Cosigner Signature (if applicable): CC: [facility] ~ Signed [facility] Work Phone: 1(143) 957-646008-25-2023 History and physical note Author [facility] May 11, 2023 11:29pm Note Date/Time May 11, 2023 4: 58pm [facility] Medical Records Department [address] [place] [address] H&P Exam - Hospitalist 05/11/23 1657 MR#: [id number] Acct: [id number] Name: MELCHOR LYLE Rep #:[id number] : 1960 62 From: Chino castano DO PCP: [place] [place] Status:ADM LYLA Location: [place] 796711-1 HPI - General General Date of Admission: 05/11/23 Date of Service: 05/11/23 Chief Complaint: Shortness of breath, wheezing HPI Narrative MELCHOR LYLE is a 62 M with history of tobacco use and hypertension who presented to [facility] ED on 05/11/2023 with worsening [...] interstitial prominence, no focal consolidationor acute findings. [facility] [facility] Medical History Hypertension Home Medications [...] (Auto) 65.2, Lymph % (Auto) 17.7 L, Winona % (Auto) 8.6, Eos % (Auto) 7.0 [...] tobacco use and hypertension who presented to [facility] ED on 05/11/2023 with worsening [...] Patient reportedly lives with his sister and [id number]. His sister has severe COPD and wears chronic oxygen at home. [id number] does a lot of tasks around the [...] 55 minutes. Charges/Coding Visit Charges Inpatient E&M: 08263 Init Hosp L2 05/11/23 4254 <Electronically signed by Chino Sandoval DO> Cosigner Signature (if applicable): CC: Dr. Chino Sandoval DO; [facility]~ Signed [facility] Work Phone: Discharge summary Author Linsey Spivey [facility] May 13, 2023 12:19pm Note Date/Time May 13, 2023 12 :12pm [facility] Medical Records Department [address] [place] [address] Instructions for Home/Discharge Instructions 05/13/23 1211 MR#: [id number] Acct: [id number] Name: MELCHOR LYLE Rep #:[id number] : 1960 62 From: Linsey Spivey MD PCP: [place], [place] Status:ADM IN Discharge Instructions Diet Discharge [...] Attending Provider: Linsey Spivey Primary Care Provider: [place], [place] Consulting Providers: Chino Sandoval Instructions Patient [...] Spivey MD CC: Dr. Chino Sandoval DO; [facility] ~ Signed ADDENDUM by Dr. Linsey Spivey MD on 05/13/23 at 1219 ECHO resulted prior to discharge with noted LVEF 65%, mild 1+ at MARY, mildly dilated aortic root. 05/13/23 1219<Electronically signed by Linsey Spivey MD>Linsey Spivey MD cc: Dr. Chino Sandoval DO; [facility] ~* Signed [facility] Work Phone: Discharge summary Author Linsey Spivey [facility] May 13, 2023 12:22pm Note Date/Time May 13, 2023 12 :18pm [facility] Medical Records Department [address] [place] [id number] Discharge Summary 05/13/231216 MR#: [id number] Acct: [id number] Name: VALDOMELCHOR Rep #:[id number] : 1960 62 From: Linsey Spivey MD PCP: [place], [place] Status:ADM IN Location: [place] [id number] Providers Date of Admission: 05/12/23 Date of [...] use/Pipe Tobacco use who presented to the [facility] ED on 05/11/23 with dyspnea and wheezing [...] 90.1 H, Lymph % (Auto) 7.2 L, Winona % (Auto) 1.5, Eos % (Auto) 0.0, [...] root. Ordering Physician: Chino Sandoval Performed By: Onela Butler RCS D/C Instructions Discharge Diet: Low [...] Attending Provider: Linsey Spivey Primary Care Provider: [facility],[place] Consulting Providers: Chino Sandoval Instructions Patient [...] Self Care Charges/Coding Visit Charges Inpatient E&M: 55945 Disch Hosp >30min 05/13/23 1222 <Electronically signed by Linsey Spivey MD> Cosigner Signature (if applicable): CC: Dr. Linsey Spivey MD; [facility]~ Signed [facility] Work Phone: Evaluation note* Diagnosis Onset Date Resolution Status Hypoxia acute Acute exacerbation of chroni c obstructive pulmonary disease chronic [facility] Work Phone: Evaluation note* Diagnosis Onset Date Resolution Status Admit Date Acute exacerbation of chroni c obstructive pulmonary disease (COPD) chronic April 20, 2025 2:34pm [facility] Work Phone: History and physical note Author Madiha Razo [facility] Note Date/Time April 20, 2025 3:3 0pm [facility] Medical Records Department [address] [place] [address] H&P Exam - Hospitalist 04/20/25 1434 MR#: [id number] Acct: [id number] Name: MELCHOR LYLE Rep #:[id number] : 1960 64 From: Madiha Razo MD PCP: [facility] Status:ADM IN Location: [facility] [id number] HPI - General General Date of Admission: 04/20/25 Date of Service: 04/20/25 Chief Complaint: Increasing SOB HPI Narrative MELCHOR LYLE, is a 64 M with a history of suspected COPD, tobacco use, hypertension and seasonal allergies who presented to [facility] ED 04/20/2025 due to increasing [...] and steroids but is still significantly struggling. [facility] Medical History Hypertension Home Medications [...] 80.1 H, Lymph % (Auto) 9.1 L, Winona % (Auto) 7.4, Eos % (Auto) 2.3, [...] 12:14 IMPRESSION: No Acute Findings. Reading Location: [facility] Assessment & Plan Assessment/Plan (1) Acute exacerbation [...] Razo MD Charges/Coding Visit Charges Inpatient E&M: 64851 Init Hosp L2 04/20/25 1530 <Electronically signed by Madiha Razo MD> Cosigner Signature (if applicable): CC: Dr. Madiha Razo MD; [facility]~ Signed [facility] Work Phone: Reason for referral (narrative)No reason for referral information [facility] Work Phone: Chief Complaint and Reason for [...] Will No May 11 8:15pm Power of Injection Maintenance Technician No May 11 023 8:15pm Advance Directive Response Recorded Date/ Time Do you have a Healthcare Power of Injection Maintenance Technician? No April 20, 2025 12:24pm Advance Directive Response Recorded Date/ Time Do you have a Healthcare Power of Injection Maintenance Technician? No April 20, 2025 3:42pm Summary Purpose Family History No Family History Records Found Additional Source Comments Care Teams (unrecognized sec tion and content) Team Status: Active Member Role/Relationship Status Dates [facility] Primary Care Provider Active Team Status: Inactive Member Role/Relationship Status Dates [facility] Primary [facility] Provider Active Start: April 20, 2025 End: [...] Team Status: Active Member Role/Relationship Status Dates [facility] Provider Active Start: April 21, 2025 [...] Team Status: Active Member Role/Relationship Status Dates [facility] Primary Care Provider Active Start: April [...] Team Status: Active Member Role Status Dates [facility] Primary Care Provider Active Team Status: Active Member Role Status Dates [facility] Primary Care Provider Active Dr. Frederick Cervantes DO Emergency Provider Active Dr. Chino Sandoval , DO Admit Provi lynne, Attending Provider, Other Provider Active Team Status: Active Member Role Status Dates [facility] Primary Care Provider Active Dr. Tay Huggins MD Attending Provider Active Team Status: Active Member Role Status Dates [facility] Primary Care Provider Active Dr. Frederick Cervantes , DO Emergency Provider Active Dr. Chino Sandoval DO Admit Provider, Other Pro vider Active Dr. Linsey Spivey MD Attending Provider, Other Prov ider Active Team Status: Inactive Member Role Status Dates [facility] Primary Care Provider Active Dr. Frederick Cervantes DO Emergency Provider Active Dr. Chino Sandoval DO Admit Provider, Other Pro vider Active Dr. Linsey Spivey MD Attending Provider Active Team Status: Active Member Role/Relationship Status Dates [facility] Primary Care Provider Active Start: April [...] section and content) DATE CREATED AUTHOR 05/01/2025 [facility] FOR RECORDS PERTAINING TO PATIENTS WHO [...] BE BASED ON THE PRIMARY CLINICAL RECORDS. [employer] [facility]. provides no warranty or guarantee of the accuracy or completeness of information in this document.
[2025-05-19] MEDS: 0.9% Normal Saline (1000mL) 1,000 ML 70 ML IV (02:42)
[2025-05-19] MEDS: Doxycycline 100 MG in 0.9% Normal Saline (250mL Bag) 250 ML 250 MG IV ×3 (02:42→22:02)
[2025-05-19 06:04] LABS: FI02 3.0; SITE Not entered; VBG BASE EXCESS 8 mmol/L (-1.0-3.5); VBG PO2 93 mmHg (25-40); VBG SO2 97 % (50-70); VBG TCO2 35 mmol/L (23-33)
[2025-05-19 06:32] LABS: Hematocrit 42.0 % (40-54); Hemoglobin 13.9 g/dL (13.0-16.5); Immature Granulocytes Count 0.040 X10^3/uL (0.0-0.0); Mean Corp Hgb Conc 33.1 g/dL (32-36); Mean Corpuscular Volume 96.6 fL (80-94); Mean Platelet Vol. 9.4 fl (6.2-12.0); NRBC Flagged by Analyzer 0 % (0-5); POSITIVE DIFFERENTIAL YES; Platelet Count 315 K/mm3 (150-450); RBC Distribution Width CV 13.5 % (11.6-14.6); RBC Distribution Width SD 48.2 fl (35.1-43.9); Red Blood Count 4.35 M/mm3 (4.6-6.2); White Blood Count 7.6 K/mm3 (4.4-11.0)
[2025-05-19 06:56] LABS: AST(SGOT) 22 U/L (<=37); Alanine Aminotransfer ALT/SGPT 36 U/L (<=46); Albumin, Serum 3.9 g/dL (3.4-4.8); Alkaline Phosphatase 74 U/L (40-129); Anion Gap 11 (5-15); BUN 9 mg/dL (4-19); BUN/Creat Ratio 9.6 RATIO (10-20); Calcium,Total 8.8 mg/dL (7.6-11.0); Carbon Dioxide 24.9 mmol/L (21.0-32.0); Chloride 101 mmol/L (98-108); Estimated Creatinine Clearance 82.29 ml/min (50-250); Globulin 3.1 g/dL (2.2-4.2); Glucose 188 mg/dL (70-99); Potassium 4.5 mmol/L (3.3-5.1)
[2025-05-19] MEDS: 0.9% Saline Lock 10 ML Syringe IV (09:37)
--- NOTE | 2025-05-19 16:02 | PCM.PN.HOSP ---
Reason for Visit Chief Complaint: SOB and Wheezing. Subjective Subjective Patient was seen and examined today, he has coarse audible expiratory wheezes bilaterally, his pulse ox on room air however is 95%. Objective Data Objective Data Vital Signs: Vital Signs Temp Pulse Resp BP Pulse Ox O2 Del Method O2 Flow Rate 97.7 F L 94 18 140/69 H 95 Room Air 2 05/19/25 14:15 05/19/25 14:15 05/19/25 14:15 05/19/25 14:15 05/19/25 14:15 05/19/25 14:15 05/19/25 13:56 Oxygen Flow Rate (L/min) 2 Oxygen Delivery Method Room Air Weight: 91 kg Body Mass Index (BMI) 33.4 Intake & Output: Intake and Output for Last 24 Hours 05/17/25 05/18/25 05/19/25 23:59 23:59 23:59 Intake Total Balance Lab / Micro Data 05/19/25 05:45 05/19/25 05:45 Labs: Laboratory Results - last 24 hr 05/18/25 21:07: WBC 7.8, RBC 4.62, Hgb 14.9, Hct 44.4, MCV 96.1 H, MCH 32.3 H, MCHC 33.6, RDW Std Deviation 48.1 H, RDW Coeff of Monica 13.7, Plt Count 296, MPV 9.2, Immature Gran % (Auto) 0.400, Neut % (Auto) 59.0, Lymph % (Auto) 21.6, Coleman % (Auto) 8.3, Eos % (Auto) 9.8 H, Baso % (Auto) 0.9, Absolute Neuts (auto) 4.6, Absolute Lymphs (auto) 1.69, Nucleated RBC % 0, Sodium 138, Potassium 4.2, Chloride 100, Carbon Dioxide 28.3, Anion Gap 9, BUN 8, Creatinine 0.99, Estim Creat Clear Calc 75.89, Est GFR (MDRD) Non-Af 84, BUN/Creatinine Ratio 8.5 L, Glucose 117 H, Calcium 9.0, Magnesium 2.3 H, TSH 2.100 05/19/25 05:45: WBC 7.6, RBC 4.35 L, Hgb 13.9, Hct 42.0, MCV 96.6 H, MCH 32.0, MCHC 33.1, RDW Std Deviation 48.2 H, RDW Coeff of Monica 13.5, Plt Count 315, MPV 9.4, Immature Gran % (Auto) 0.500, Neut % (Auto) 92.7 H, Lymph % (Auto) 5.8 L, Coleman % (Auto) 0.5, Eos % (Auto) 0.0, Baso % (Auto) 0.5, Absolute Neuts (auto) 7.0, Absolute Lymphs (auto) 0.44 L, Nucleated RBC % 0, Sodium 137, Potassium 4.5, Chloride 101, Carbon Dioxide 24.9, Anion Gap 11, BUN 9, Creatinine 0.90, Estim Creat Clear Calc 82.29, Est GFR (MDRD) Non-Af 94, BUN/Creatinine Ratio 9.6 L, Glucose 188 H, Calcium 8.8, Phosphorus 3.8, Total Bilirubin 0.41, AST 22, ALT 36, Alkaline Phosphatase 74, Total Protein 7.0, Albumin 3.9, Globulin 3.1, Albumin/Globulin Ratio 1.3 Micro: Microbiology 05/19/25 02:45 Mucosa - Nasopharyngeal Respiratory Panel (PCR) - Final ABG Data ABG results: ABG 05/18/25 05/19/25 22:36 06:00 Specimen Type ART NIRMAL Sample Site R Radial Not entered pH 7.38 Bicarbonate Actual 31.2 H Total CO2 33 Base Excess 6 H O2 Saturation 92 L O2 % 2.0 3.0 ABG pCO2 53.0 H ABG pO2 66 L Test Positive VBG pH 7.37 VBG pO2 93 H VBG HCO3 33 H VBG Total CO2 35 H VBG O2 Sat (Calc) 97 H VBG Base Excess 8 H POC Mix VBG pCO2 Pt Tmp 57.9 H O2 Delivery Device Cannula Cannula Vent Mode Not entered Radiography Diagnostic Testing: Radiology Impression Chest X-Ray 05/18/25 21:20 IMPRESSION: No acute abnormality Reading Location: [facility] Physical Exam Const alert, oriented x3 and no apparent distress General Appearance: cooperative, well kempt and well developed Orientation / Consciousness: awake, oriented to person, oriented to place and oriented to time HEENT normocephalic, head/scalp atraumatic and moist oral mucous membranes Eyes PERRL, EOMs intact bilaterally and conjunctivae normal Neck supple, no JVD, thyroid normal and no carotid bruits General: trachea midline Resp normal respiratory effort and no retractions Resp Narrative: Patient has coarse expiratory wheezes over all lung oliver Auscultation: wheezes expiratory wheezes and throughout; Negative for rales or rhonchi Cardio regular rate, regular rhythm, S1 normal heart sound, S2 normal heart sound, no murmurs, no rub and no gallops GI normal to inspection, nondistended, normoactive bowel sounds, soft to palpation, non-tender and non-distended Extremity no clubbing, cyanosis or edema Skin no rashes or lesions noted General Skin Exam: no breakdown Neuro oriented x3, CN's II-XII intact bilaterally, no focal motor deficits and no sensory deficits noted Sensorium / Orientation: awake and alert Speech: speech normal Psych affect normal Assessment & Plan Assessment/Plan (1) COPD exacerbation: PLAN: Plan 1. Acute exacerbation of COPD-patient will remain on IV Solu-Medrol and aerosol treatments, pulse ox will be monitored. Patient's respiratory panel was unremarkable. #2 hypoxia-patient's pulse ox on room air at rest is 95%, pulse ox will be monitored #3 essential hypertension-patient will remain on his home medications, blood pressure medications will be adjusted if necessary Total clinical time spent by myself addressing the patient's medical issues, reviewing all of his data, and collaborating with patient's care team: 35 minutes
[2025-05-19 23:24] LABS: Mucous, Urine 0 SEEN /hpf (<or=2+)
[2025-05-20 00:21] LABS: Color, Urine Yellow (Yellow); Glucose, Dipstick Normal (Normal); Ketone-Dipstick Negative (Negative); Leukocyte Esterase-Dipstick Negative /ul (Negative); Nitrite-Dipstick Negative (Negative); Occult Blood-Urine 25 /ul (Negative); Protein-Dipstick 30 mg/dl (Negative); Specific Gravity, Urine 1.015 (1.002-1.030); Urine Bilirubin Dipstick Negative (Negative)
[2025-05-20 00:29] LABS: Red Blood Cells-Urine 0-5 SEEN /hpf (0-5); Squamous Epithelial Cells - UA 0-5 SEEN /hpf (0-5)
[2025-05-20 03:30] VITALS: BP 157/78; PULSE 66; RESP 16; TEMP 36.8; O2SAT 95
[2025-05-20 03:39] VITALS: BMI 33.4
--- NOTE | 2025-05-20 09:34 | CASEMGMT ---
Social Work SDOH completed. Resources previously provided. Patient reported he still has them. Patient reported he has bed bugs and they are working on it. DORCAS Aguila
[2025-05-20 11:11] VITALS: BP 149/87; PULSE 79; RESP 16; TEMP 36.3; O2SAT 95
[2025-05-20] MEDS: Doxycycline 100 MG in 0.9% Normal Saline (250mL Bag) 250 ML 250 MG IV ×2 (11:38→22:28)
--- NOTE | 2025-05-20 11:45 | CASEMGMT ---
Social Work SW spoke with the patient in the room. Patient is not interested if filing for Medicaid. DORCAS Aguila
[2025-05-20 15:15] VITALS: BP 137/65; PULSE 84; RESP 16; TEMP 37.1; O2SAT 90
--- NOTE | 2025-05-20 16:28 | CHAPLAIN ---
Type of Pastoral Visit _x__ Initial Visit ___ Follow-up Visit ___ On-call Visit ___ General Patient Visit ___ Spiritual Assessment ___ Family Conference ___ Bereavement ___ Rapid Response ___ Code Blue ___ Other (describe below) Pastoral Care Referral From _x__ Patient ___ Family ___ Nurse ___ Physician ___ Bee Robber ___ Reach Lift Truck Driver ___ Other (describe below) Sacrament/Intervention _x__ Active listening ___ Anointing ___ Faith ___ Bereavement ___ Communion _x__ [place] exploration ___ ___ Life review ___ Prayer ___ Reconciliation ___ Sacrament of Sick _x__ Supportive presence ___ Wedding ___ Other (describe below) Pastoral Comments patient is talkative and reminds this boarding specialist of his recent admission; pt reviews some of the past again which includes his health issues throughout life, his singleness and limited family of a sister and ARSEN all of whom have health concerns now; pt speaks freely about his philosophy of life and belief systems; pt has political comments as well; pt denies having more needs but states that I just like having someone to talk with; pt would be considered spiritual but not restoration as he explains his ideas on God and life
[2025-05-20 16:39] VITALS: O2SAT 93
--- NOTE | 2025-05-20 19:08 | PCM.PN.HOSP ---
Reason for Visit Chief Complaint: SOB and Wheezing. Subjective Subjective Patient was seen and examined today, he still requiring low-flow nasal cannula oxygen, he tells me that the [facility] not [facility] for him because he has not stop smoking for 2 months. I have verified this with case management. Patient is still having expiratory wheezing today, I told him that I would reevaluate him tomorrow for possible discharge home. Patient states he cannot afford to get medication [facility] but [facility]. I will address this tomorrow if he is discharged. Objective Data Objective Data Vital Signs: Vital Signs Temp Pulse Resp BP Pulse Ox O2 Del Method O2 Flow Rate 98.8 F 84 16 137/65 H 93 Nasal Cannula 2 05/20/25 15:15 05/20/25 15:15 05/20/25 15:15 05/20/25 15:15 05/20/25 16:39 05/20/25 16:39 05/20/25 16:39 Oxygen Flow Rate (L/min) 2 Oxygen Delivery Method Nasal Cannula Weight: 91.1 kg Body Mass Index (BMI) 33.4 Intake & Output: Intake and Output for Last 24 Hours 05/18/25 05/19/25 05/20/25 23:59 23:59 23:59 Intake Total 3299.50 / 3539.50 890 / 890 Output Total 400 / 400 Balance 3299.50 / 3139.50 490 / 490 Lab / Micro Data 05/19/25 05:45 05/19/25 05:45 Labs: Laboratory Results - last 24 hr 05/19/25 03:45: Urine Color Yellow, Urine Clarity Cloudy, Urine pH 6.0, Ur Specific Mascot 1.015, Urine Protein 30 H, Urine Glucose (UA) Normal, Urine Ketones Negative, Urine Occult Blood 25 H, Urine Nitrite Negative, Urine Bilirubin Negative, Urine Urobilinogen Normal, Ur Leukocyte Esterase Negative, Urine RBC 0-5 SEEN, Urine WBC 0-5 SEEN, Ur Squamous Epith Cells 0-5 SEEN, Urine Bacteria 4+, Urine Mucus 0 SEEN Micro: Microbiology 05/19/25 02:45 Mucosa - Nasopharyngeal Respiratory Panel (PCR) - Final Physical Exam Narrative lert, oriented x3 and no apparent distress General Appearance: cooperative, well kempt and well developed Orientation / Consciousness: awake, oriented to person, oriented to place and oriented to time HEENT normocephalic, head/scalp atraumatic and moist oral mucous membranes Eyes PERRL, EOMs intact bilaterally and conjunctivae normal Neck supple, no JVD, thyroid normal and no carotid bruits General: trachea midline Resp normal respiratory effort and no retractions Resp Narrative: Patient has coarse expiratory wheezes over all lung oliver Auscultation: High pitched expiratory wheezes and throughout; Negative for rales or rhonchi Cardio regular rate, regular rhythm, S1 normal heart sound, S2 normal heart sound, no murmurs, no rub and no gallops GI normal to inspection, nondistended, normoactive bowel sounds, soft to palpation, non-tender and non-distended Extremity no clubbing, cyanosis or edema Skin no rashes or lesions noted General Skin Exam: no breakdown Neuro oriented x3, CN's II-XII intact bilaterally, no focal motor deficits and no sensory deficits noted Sensorium / Orientation: awake and alert Speech: speech normal Psych affect normal Assessment & Plan Assessment/Plan (1) COPD exacerbation: PLAN: Plan 1. Acute exacerbation of COPD-patient will remain on IV Solu-Medrol and aerosol treatments, pulse ox will be monitored. . #2 hypoxia-patient's pulse ox on room air at rest is 95%, pulse ox will be monitored, patient will need a walking pulse ox performed before he is discharged #3 essential hypertension-patient will remain on his home medications, blood pressure medications will be adjusted if necessary Total clinical time spent by myself addressing the patient's medical issues, reviewing all of his data, and collaborating with patient's care team: 35 minutes Charges/Coding Visit Charges Inpatient E&M: 21888 Subs Hosp L2
[2025-05-20 21:00] VITALS: BP 146/84; PULSE 68; RESP 18; TEMP 36.4; O2SAT 97
[2025-05-21 03:36] VITALS: BMI 33.5
[2025-05-21 04:18] VITALS: BP 135/77; PULSE 57; RESP 18; TEMP 36.7; O2SAT 98
[2025-05-21 10:00] VITALS: BP 143/75; PULSE 86; RESP 18; TEMP 36.3; O2SAT 100
[2025-05-21 11:06] VITALS: O2SAT 86; O2SAT 90; O2SAT 94
--- NOTE | 2025-05-21 11:45 | CASEMGMT ---
Addendum entered by Isabelle Bartlett 05/21/25 13:50: PATTI BARRAZA received call from Joaquín at the [facility]. PATTI BARRAZA updated Joaquín regarding discharge plan and non adherence to follow-up plans. Joaquín states he will note in chart for PCP to follow-up with patient. Original Note: PATTI BARRAZA chart review: Patient was admitted 04/20-04/22/25 for hypoxia and COPD exacerbation. See assessments from 04/20. Patient was discharged to home with family support and follow-up plans in place, patient refused home oxygen at discharge. Patient returned to [facility] ED on 05/18/25 for shortness of breath and wheezing and was admitted 05/19/25 for acute exacerbation of COPD. PATTI BARRAZA in to discuss readmission and discharge planning. Patient states he received his prescriptions last discharge and took as prescribed. Patient states he did not follow-up with [facility] PCP as he was waiting till he completed his antibiotic and prednisone and then was going to schedule appt and returned to [facility] prior to scheduling. Nursing completed oxygen testing and patient qualifies for home oxygen at 2lpm continuous. Patient is refusing to discharge with home oxygen due to cost and states even if the [facility] covered it he would refuse it as family could not afford the increase cost of electricity. PATTI BARRAZA explained the risk to patient not going home with oxygen, patient voiced understanding. Patient states he has had a premonition that 2025 is going to be bad year and does not seem himself due to health issues seeing all of 2025. PATTI BARRAZA encouraged patient to follow up with [facility] PCP, which patient states he will schedule now. PATTI BARRAZA encouraged patient to discuss with PCP getting established with cowlman and possible palliative care. Patient voiced understanding and declined further needs at this time. Patient has order for discharge. Patient to discharge home with family support and follow-up plans and declined oxygen setup at discharge, hospitalist notified.
--- NOTE | 2025-05-21 11:57 | DCINST_ITS ---
Discharge Instructions DC O2, CPAP, BIPAP needs Home O2 Discharge instructions: No Dressing / Incision Discharge Activity: Return to Normal Activity Weight Bearing Status: Full weight bearing Follow Up Care Test Results: Test results from this visit will be discussed in further detail at your follow- up appointment, if applicable. Discharge Plan Admission Admit Date/Time: 05/19/25 00:19 Primary Reason for Your Visit: Exacerbation of COPD Attending Provider: Ian Boyle Primary Care Provider: [facility],[place] Consulting Providers: Luis Lucero Discharge Orders/Prescriptions Prescriptions: Continued diphenhydramine HCl [Allergy] 25 mg tablet 50 mg PO BID PRN losartan [Cozaar] 50 mg tablet 50 mg PO DAILY albuterol sulfate 90 mcg/actuation aerosol powdr breath activated 2 inh inhalation Q4H PRN (Reason: SHORTNESS OF BREATH ) Qty: 1 0RF amlodipine 5 mg Tablet 5 mg PO DAILY guaifenesin [Mucus Relief ER] 1,200 mg Tablet Extended Release 12hr 1,200 mg PO BID Qty: 20 0RF Referrals / Follow Up: [place] [Primary Care Provider] - See Referral Note (Within 2 weeks) Disposition Disposition (needs filled in before D/C Order can be placed): Home, Self Care
--- NOTE | 2025-05-21 11:58 | DS.PCM_ITS ---
Providers Date of Admission: 05/19/25 Date of Discharge: 05/21/25 Primary Care Physician: [facility] Reason For Visit: AE COPD Diagnosis Discharge Diagnosis (1) COPD exacerbation: Status: Chronic Code(s): J44.1 - Chronic obstructive pulmonary disease with (acute) exacerbation Plan 1. Acute exacerbation of COPD-patient will remain on IV Solu-Medrol and aerosol treatments, pulse ox will be monitored. Patient's respiratory panel was unremarkable. #2 hypoxia-patient's pulse ox on room air at rest is 95%, pulse ox will be monitored #3 essential hypertension-patient will remain on his home medications, blood pressure medications will be adjusted if necessary Total clinical time spent by myself addressing the patient's medical issues, reviewing all of his data, and collaborating with patient's care team: 35 minutes Medications at Discharge Home Medications diphenhydramine HCl 25 mg tablet (Allergy) 50 mg PO BID PRN ALLERGIES 05/11/23 losartan 50 mg tablet (Cozaar) 50 mg PO DAILY BLOOD PRESSURE 05/11/23 albuterol sulfate 90 mcg/actuation breath activated powder inhaler 2 inh inhalation Q4H PRN SHORTNESS OF BREATH #1 ea 05/13/23 amlodipine 5 mg tablet 5 mg PO DAILY BLOOD PRESSURE 05/27/24 guaifenesin 1,200 mg tablet, extended release 12 hr (Mucus Relief ER) 1,200 mg PO BID cough #20 tabs 04/22/25 Hospital Course Operations None Procedures None Summary of Care Provided Minutes Spent on Discharge: 31 Hospital Course: This 64-year-old white male was seen in the emergency room at [facility] with complaints of shortness of breath, he has a history of COPD and he smokes a pipe. Labs were obtained and they were unremarkable. Arterial blood gas was obtained, patient had a pO2 of 66 and a pCO2 of 53 on nasal cannula oxygen. Chest x-ray showed no acute abnormality, patient was given IV Solu- Medrol and aerosol treatments but had persistent wheezing and required supplemental oxygen to maintain his pulse ox above 90%. Patient was admitted to PCU for exacerbation of COPD, he was treated with IV corticosteroids and aerosol treatments. Patient's respiratory panel was unremarkable. Patient complained that he had no funds to pay for medications or oxygen other than through the [place] [facility]. Patient did say he had an albuterol inhaler. On 05/21/2025, patient was seen and examined: On examination he appeared in good health and spirits. Vital signs as documented. Skin warm and dry and without overt rashes. Neck without JVD, neck was supple, trachea midline, thyroid was normal. Lungs scattered faint expiratory wheezes were noted, normal air movement was noted. Heart exam notable for regular rhythm, normal sounds and absence of murmurs, rubs or gallops. Abdomen unremarkable and without evidence of organomegaly, masses, or abdominal aortic enlargement. Bowel sounds are present, abdomen is not distended. Extremities nonedematous, no cyanosis was noted, no clubbing was noted. Neuro: Cranial nerves II through XII are grossly intact, no focal motor deficits were noted, sensation to light touch and pinprick intact, motor exam 5/5 throughout. Psych: Patient is alert and oriented x3, he does not appear anxious or depressed, he does not appear agitated. Patient had a walking oxygen test at the time of discharge and required oxygen with a pulse ox of 86% at rest on room air, he would have needed 2 L of oxygen but the patient refused to have oxygen set up for him. He was aware of the recommendation for home oxygen. Patient was discharged in stable condition on 05/21/2025 Weight / BMI Weight Weight: 91.4 kg Body Mass Index (BMI) 33.5 ABG / Lab / Microbiology Data 05/19/25 05:45 05/19/25 05:45 Microbiology: Microbiology 05/19/25 02:45 Mucosa - Nasopharyngeal Respiratory Panel (PCR) - Final D/C Instructions Weight Bearing Status: Full weight bearing DC O2, CPAP, BIPAP Needs Home O2 Discharge instructions: No Meaningful Use Info Meaningful Use Meaningful Use Diagnoses (Choose all that apply): None applicable Discharge Plan Admission Admit Date/Time: 05/19/25 00:19 Primary Reason for Your Visit: Exacerbation of COPD Attending Provider: Ian Boyle Primary Care Provider: [facility],[place] Consulting Providers: Luis Lucero Discharge Orders/Prescriptions Prescriptions: Continued diphenhydramine HCl [Allergy] 25 mg tablet 50 mg PO BID PRN losartan [Cozaar] 50 mg tablet 50 mg PO DAILY albuterol sulfate 90 mcg/actuation aerosol powdr breath activated 2 inh inhalation Q4H PRN (Reason: SHORTNESS OF BREATH ) Qty: 1 0RF amlodipine 5 mg Tablet 5 mg PO DAILY guaifenesin [Mucus Relief ER] 1,200 mg Tablet Extended Release 12hr 1,200 mg PO BID Qty: 20 0RF Referrals / Follow Up: [facility] [Primary Care Provider] - See Referral Note (Within 2 weeks) Disposition Disposition (needs filled in before D/C Order can be placed): Home, Self Care Charges/Coding Visit Charges Inpatient E&M: 20025 Disch Hosp >30min
[2025-05-21 13:18] VITALS: BP 153/90; PULSE 78; RESP 18; TEMP 36.3; O2SAT 96
--- NOTE | 2025-05-21 13:21 | PHA.DC.MR.R ---
Pharmacy [place] Med Reconciliation Pharmacy Service has performed discharge medication reconciliation for this patient. The patient's discharge medication list was reviewed for discrepancies and discrepancies were resolved. Medications at Discharge Home Medications diphenhydramine HCl 25 mg tablet (Allergy) 50 mg PO BID PRN ALLERGIES 05/11/23 losartan 50 mg tablet (Cozaar) 50 mg PO DAILY BLOOD PRESSURE 05/11/23 albuterol sulfate 90 mcg/actuation breath activated powder inhaler 2 inh inhalation Q4H PRN SHORTNESS OF BREATH #1 ea 05/13/23 amlodipine 5 mg tablet 5 mg PO DAILY BLOOD PRESSURE 05/27/24 guaifenesin 1,200 mg tablet, extended release 12 hr (Mucus Relief ER) 1,200 mg PO BID cough #20 tabs 04/22/25
== END 2025-05-21 13:45 | disposition home or self-care (01) | DRG 192 ==
LOC: ED 05-19 00:10 → PCU 05-19 01:21
PROVIDERS: Admitting Provider Internal Medicine; Emergency Provider Emergency Medicine; Visit Provider Internal Medicine
DX: J44.1 Chronic obstructive pulmonary disease with (acute) exacerbation (principal); E66.811 Obesity, class 1; I10 Essential (primary) hypertension; M19.90 Unspecified osteoarthritis, unspecified site; J30.2 Other seasonal allergic rhinitis; F17.290 Nicotine dependence, other tobacco product, uncomplicated; Z68.33 Body mass index [BMI] 33.0-33.9, adult; R09.02 Hypoxemia; Z79.899 Other long term (current) drug therapy
CPT/HCPCS: 36415; 36600; 71045; 71046; 80048; 80053; 81001; 82803; 83735; 84100; 84443; 85025; 87633; 93005; 94640; 94668; 94760; 99252; 99285; A4216; G0463